=== PATIENT | female | born 1955 | race African-American/Black ===

== ENCOUNTER 2022-03-31 15:54 | Inpatient (IN) | payer OTHER ==
--- OUTSIDE RECORDS SUMMARY | 2022-03-31 15:56 | XMS REPORT | Continuity of Care Document ---
:1955 Author Organization [facility] t Address [address] [place] [address] Care Team Providers Name Role Phone MARCI_Fito Attending Clinician Unavailable Marci Attending Clinician [phone] KO Attending Clinician Unavailable Herminia Watson Attending Clinician [phone] MARCI_S Admitting Clinician Unavailable KO Admitting Clinician Unavailable Payers Payer Name Policy Type Policy Number Effective Date Expiration Date Fito SAUER (MEDICARE [id number] 2019 REPLACEMENT PPO) 00:00:00 MEDICARE A-[place]: [id number] 2019 [employer] 00:00:00 Problems This patient has no known problems. Allergies, Adverse Reactions, Alerts This patient has no known allergies or adverse reactions. Medications This patient has no known medications. Procedures This patient has no known procedures. Encounters Start End Encounter Admission Attending Care Care Encounter Source Date/Time Date/Time Type Type Clinicians Facility Department ID 2021-10-28 2021-10-28 Outpatient MARCI[facility]S [facility] [id number] [place] 12:01:00 12:01:00 [facility] 2021-10-28 2021-10-28 Outpatient [facility] [id number] [place] 12:01:00 12:01:00 [facility] 2021-10-28 2021-10-28 [facility] [id number] 00:00:00 00:00:00 Carlotta [id number] 2021-10-07 Outpatient [facility] [id number] [place] 04:19:00 04:19:00 [facility] 2021-10-07 2021-10-07 Outpatient Marci, [facility] [id number] 00:00:00 00:00:00 Carlotta [id number] 2021-09-30 2021-09-30 Outpatient [facility] [id number] [place] 10:01:00 10:01:00 208 [facility] 2021-08-05 2021-08-05 [facility] 389 [place] 11:51:00 11:51:00 _L 013 [facility] 2021-08-05 2021-08-05 Outpatient [facility] [id number] 00:00:00 00:00:00 , Meryl [id number] Herminia [id number] 2021-07-03 2021-07-03 Outpatient [facility] 389 [place] 12:44:00 12:44:00 _L 910 [facility] 2021-07-03 2021-07-03 [facility] [id number] 00:00:00 00:00:00 , Meryl [id number] Herminia [id number] 2021-06-22 2021-06-22 Outpatient [facility] 389 [place] 06:00:00 06:00:00 _L 830 [facility] 2021-06-22 2021-06-22 Outpatient [facility] [id number] 00:00:00 00:00:00 , Meryl [id number] Herminia [id number] 2021-04-22 2021-04-22 Outpatient [facility] 389 [place] 05:46:00 05:46:00 _L 630 [facility] 2021-04-22 2021-04-22 Outpatient [facility] [id number] 00:00:00 00:00:00 , Meryl [id number] Herminia [id number] 2021-04-15 2021-04-15 Outpatient [facility] 389 [place] 12:15:00 12:15:00 _L 623 [facility] 2021-04-15 2021-04-15 Outpatient Marci [facility] [id number] 00:00:00 00:00:00 Carlotta [id number] 2021-04-01 2021-04-01 Outpatient [facility] 389 [place] 11:11:00 11:11:00 _L 609 [facility] 2021-04-01 2021-04-01 Outpatient [facility] [id number] 00:00:00 00:00:00 , Meryl [id number] Herminia [id number] 2021-04-01 2021-04-01 Outpatient [facility] [id number] 00:00:00 00:00:00 , Meryl [id number] Herminia [id number] 2021-03-25 2021-03-25 Outpatient [facility] 389 [place] 11:00:00 11:00:00 _L 602 [facility] 2021-03-25 2021-03-25 Outpatient [facility] [id number] 00:00:00 00:00:00 , Meryl [id number] Herminia [id number] 2020-12-16 2020-12-16 Outpatient [facility] 389 [place] 11:04:00 11:04:00 _L 528 [facility] 2020-12-15 2020-12-15 Outpatient [facility] 389 [place] 10:19:00 10:19:00 _L 222 [facility] 2020-12-10 2020-12-10 Outpatient [facility] 389 [place] 04:21:00 04:21:00 _L 217 [facility] 2020-12-10 2020-12-10 Outpatient [facility] [id number] 00:00:00 00:00:00 , Meryl [id number] Herminia [id number] Results This patient has no known results.
[2022-03-31] MEDS ORDERED: MORPHINE 4 MG/ML SYR ONE (17:28)
[2022-03-31] MEDS ORDERED: PANTOPRAZOLE 40 MG INJ ONE (17:28)
[2022-03-31] MEDS ORDERED: ONDANSETRON 4 MG/2 ML VIAL ONE (17:28)
[2022-03-31 17:48] LABS: Urine Blood Trace-intact (Negative); Urine Glucose Negative (Negative); Urine Protein 2+ (Negative); Urine Specific Gravity 1.025 (1.005-1.030); Urine pH 5.5 (5.0-7.0)
[2022-03-31 18:17] LABS: Urine Bacteria >50 /HPF (<20); Urine Mucus HEAVY /HPF (NONE SEEN); Urine RBC <5 /HPF (NONE SEEN)
[2022-03-31 18:36] LABS: Absolute Lymphocytes (CBC) 2.6 K/uL (0.7-4.9); Hematocrit 39.6 % (36.0-45.0); Lymphocytes % 16.1 % (15.3-44.8); RBC Red Blood Cell Count 4.77 M/uL (3.86-4.86)
[2022-03-31 18:47] LABS: Bilirubin Total 0.3 mg/dL (0.2-1.0); Protein, Total 8.5 g/dL (6.4-8.2)
[2022-03-31 18:48] LABS: Potassium 3.9 mmol/L (3.5-5.1)
--- NOTE | 2022-03-31 19:50 | RAD REPORT ---
EXAM DESCRIPTION: CT - Abdomen Pelvis W Contrast - 03/31/2022 7:37 pm CLINICAL HISTORY: Abdominal pain COMPARISON: none. TECHNIQUE: Computed axial tomography of the abdomen pelvis was obtained. 100 cc Isovue-300 was admin istered intravenously. Oral contrast was not requested which limits evaluation of bowel and appendix All CT scans are performed using dose optimization technique as appropriate and may include automated exposure control or mA/KV adjustment according to patient size. FINDINGS: The liver, spleen, pancreas, adrenal and kidneys appear unremarkable. There is no evidence of diverticulitis. Small umbilical hernia. The gallbladder is distended. The wall is thickened. Stranding is present within the adjacent fat. Areas of subsegmental atelectasis within the right lower lobe IMPRESSION: Acute cholecystitis with gallbladder distention
--- NOTE | 2022-03-31 19:51 | RAD REPORT ---
EXAM DESCRIPTION: Rita Single View03/31/2022 6:08 pm CLINICAL HISTORY: Chest pain COMPARISON: none FINDINGS: A few areas of subsegmental atelectasis within the right lung base. The remainder of the lungs appear clear of acute infiltrate. The heart is normal size
[2022-03-31] MEDS ORDERED: CEFTRIAXONE 1000 MG/VIAL ONE (20:01)
[2022-03-31] MEDS ORDERED: NA CHLORIDE 0.9% 1,000 ML ONE (20:01)
[2022-03-31] MEDS ORDERED: NA CHLORIDE 0.9% 50 ML ONE (20:01)
[2022-03-31] MEDS ORDERED: NA CHLORIDE 0.9% 100 ML ONE (20:58)
[2022-03-31] MEDS ORDERED: PIPERACIL/TAZO 3.375 GM VIAL IV ONE (20:58)
--- NOTE | 2022-03-31 21:04 | EDPHYS ---
Physician Documentation [facility] Name: Neela Chan Age: 66 yrs Sex: Female : 1955 Arrival Date: 03/31/2022 Time: 15:55 Bed 7 Private MD: ED Physician Marcellus Alexis HPI: 03/31 17:10 This 66 yrs old Black Female presents to ER via Ambulatory with complaints of Abdominal cp Pain, Abnormal Lab Results, Flank Pain. 17:10 The patient presents with abdominal pain in the epigastric area, in the right upper cp quadrant. 17:10 Onset: The symptoms/episode began/occurred 3 day(s) ago. The symptoms radiate to right back. Associated signs and symptoms: Pertinent positives: anorexia, nausea, vomiting, Pertinent negatives: blood in stools, chest pain, constipation, diarrhea, fever, vomiting blood. 17:10 The symptoms are described as constant. cp 17:10 Severity of pain: in the emergency department the pain is unchanged despite home cp interventions. The patient has been recently seen by a physician: the patient's primary care provider, with similar presenting complaints, and was sent to the [facility] Emergency Department for further evaluation. Historical: - Allergies: 16:01 No Known Allergies; ll1 - PMHx: 16:01 Diabetes mellitus; Hypertensive disorder; Hypercholesterolemia; ll1 - PSHx: 16:01 hysterectomy; ll1 - Immunization history:: Client reports receiving the 2nd dose of the Covid vaccine. - Social history:: Smoking status: Patient denies any tobacco usage or history of. ROS: 17:15 Constitutional: Positive for poor PO intake, Negative for body aches, chills, fever. cp 17:15 Eyes: Negative for injury, pain, redness, and discharge. cp 17:15 ENT: Negative for drainage from ear(s), ear pain, sore throat, difficulty swallowing, difficulty handling secretions. 17:15 Cardiovascular: Negative for chest pain, edema, palpitations. 17:15 Respiratory: Negative for cough, shortness of breath, wheezing. 17:15 Abdomen/GI: Positive for abdominal pain, nausea, anorexia, Negative for diarrhea, constipation, black/tarry stool, rectal bleeding. 17:15 Skin: Negative for cellulitis, rash. 17:15 Neuro: Negative for altered mental status, dizziness, headache, weakness. Exam: 17:20 Head/Face: Normocephalic, atraumatic. cp 17:20 Constitutional: The patient appears in no acute distress, alert, awake, non-diaphoretic, non-toxic, well developed, well nourished, uncomfortable. 17:20 Eyes: Periorbital structures: appear normal, Conjunctiva: normal, no exudate, no injection, Sclera: no appreciated abnormality, Lids and lashes: appear normal, bilaterally. 17:20 ENT: External ear(s): are unremarkable, Nose: is normal, Mouth: Lips: moist, Oral mucosa: pink and intact, moist, Posterior pharynx: Airway: no evidence of obstruction, patent. 17:20 Chest/axilla: Inspection: normal. 17:20 Cardiovascular: Rate: normal, Rhythm: regular, Edema: is not appreciated, JVD: is not appreciated. 17:20 Respiratory: the patient does not display signs of respiratory distress, Respirations: normal, no use of accessory muscles, no retractions, labored breathing, is not present, Breath sounds: are clear throughout, no decreased breath sounds, no stridor, no wheezing. 17:20 Abdomen/GI: Inspection: abdomen appears normal, Bowel sounds: active, all quadrants, Palpation: soft, in all quadrants, moderate abdominal tenderness, in the epigastric area and right upper quadrant, rebound tenderness, is not appreciated, voluntary guarding, is elicited in the epigastric area and right upper quadrant. 17:20 Back: pain, that is moderate, of the mid back area, ROM is normal. 17:20 Skin: no rash present. 17:20 Neuro: Orientation: to person, place \\T\\ time. Mentation: is normal, Motor: moves all fours, strength is normal, Sensation: is normal, Gait: is steady. Vital Signs: 15:59 BP 124 / 67; Pulse 73; Resp 16; Temp 97.5; Pulse Ox 100% ; Weight 82.1 kg; Height 5 ft. ll1 11 in. (180.34 cm); Pain 10/10; 20:02 BP 120 / 46; Pulse 67; Resp 18 S; Pulse Ox 98% on R/A; as6 21:01 BP 120 / 58; Pulse 69; Resp 18; Pulse Ox 97% on R/A; Pain 3/10; tw5 15:59 Body Mass Index 25.24 (82.10 kg, 180.34 cm) ll1 MDM: 16:54 Patient medically screened. 18:00 Differential diagnosis: bowel obstruction, cholecystitis, Cholelithiasis, cp diverticulitis, non-specific abd pain, pancreatitis, Peptic Ulcer Disease, Perf. Duodenal Ulcer, Perf. Gastric Ulcer. 21:00 Data reviewed: vital signs, nurses notes, lab test result(s), radiologic studies, CT cp scan. 21:00 Counseling: I had a detailed discussion with the patient and/or guardian regarding: the cp historical points, exam findings, and any diagnostic results supporting the discharge/admit diagnosis, lab results, radiology results, the need for further work-up and treatment in the hospital. Physician consultation: Santi Nolan MD was called at 20:50, was contacted at 20:50, regarding consult, patient's condition, would like admission per Dr. Tyler Alexis MD. 03/31 17:11 Order name: CBC with Diff; Complete Time: 19:06 03/31 19:06 Interpretation: Normal except: WBC 16.0; MCH 26.8; PLT 430; NEUT A 11.6; MNA 1.6. 03/31 17:11 Order name: CMP; Complete Time: 19:06 03/31 19:07 Interpretation: Normal except: NA 133; CL 95; GLUC 107; BUN 23; GFR 57; TP 8.5; ALB cp 3.0; GLOB 5.5; A/G 0.5. 03/31 17:11 Order name: Lipase; Complete Time: 19:06 03/31 17:11 Order name: Urine Microscopic Only; Complete Time: 19:06 03/31 19:07 Interpretation: Normal except: UBACT >50; SQEPI 10-20. 03/31 17:48 Order name: Urine Dipstick-Ancillary; Complete Time: 19:06 [facility] 03/31 19:07 Interpretation: Normal except: UKET 1+; UBLD Trace-intact; UPROT 2+; U NIT Positive; cp UESTR Trace. 03/31 18:20 Order name: Urine Culture [facility] 03/31 17:11 Order name: CT Abd/Pelvis - IV Contrast Only 03/31 17:11 Order name: XRAY Chest (1 view); Complete Time: 20:48 03/31 20:48 Interpretation: Report review. 03/31 20:57 Order name: COVID-19 SARS RT PCR (Document "Date of Onset" if Symptomatic) tw5 03/31 23:52 Order name: Glucose, Ancillary Testing EDMS 04/01 04:34 Order name: Comprehensive Metabolic Panel EDMS 04/01 04:34 Order name: Magnesium EDMS 04/01 04:35 Order name: CBC with Automated Diff EDMS 04/01 05:25 Order name: Glucose, Ancillary Testing EDMS 03/31 17:11 Order name: IV Saline Lock; Complete Time: 18:32 cp 03/31 17:11 Order name: Labs collected and sent; Complete Time: 18:32 cp 03/31 17:11 Order name: Urine Dipstick-Ancillary (obtain specimen); Complete Time: 17:54 03/31 17:16 Order name: Abdomen ; Complete Time: 20:48 EDMS Administered Medications: 18:08 Drug: Zofran (Ondansetron) 4 mg Route: IVP; Site: left forearm; ph 22:10 Follow up: Response: No adverse reaction as6 18:10 Drug: morphine 4 mg Route: IVP; Infused Over: 4 mins; Site: left forearm; ph 18:15 Drug: ProTONIX (pantoprazole) 40 mg Route: IVP; Site: left forearm; ph 20:01 Drug: Rocephin (cefTRIAXone) 1 grams Route: IV; Rate: calculated rate; Site: left as6 forearm; 20:01 Drug: NS 0.9% 500 ml Route: IV; Rate: bolus; Site: left forearm; as6 20:23 Drug: NS 0.9% 500 ml Route: IV; Rate: 125 ml/hr; Site: left forearm; as6 21:01 Drug: Zosyn (piperacillin-tazobactam) 3.375 grams Route: IVPB; Infused Over: 60 mins; tw5 Site: left wrist; Disposition: 04/01 21:42 Co-signature as Attending Physician, Marcellus Alexis MD. rn Disposition Summary: 03/31/22 21:04 Hospitalization Ordered Hospitalization Status: Inpatient Admission cp Condition: Stable cp Problem: an ongoing problem cp Symptoms: have improved cp Bed/Room Type: Standard cp Location: [facility] ER HOLD(06/08/22 21:35) cg Room Assignment: [facility](03/31/22 21:35) Provider: Tyler Alexis(04/01/22 04:10) la1 Diagnosis - Cholecystitis, unspecified cp Forms: - Medication Reconciliation Form cp - SBAR form cp Signatures: Dispatcher [employer] EDMS Marcellus Alexis MD MD rn Attema, Boris, [employer]-C [employer]-Cla1 Gertrudis Schwarz RN RN Lake Bee PA PA cp Aliyah Calzada RN RN cg Lucie Jaramillo RN RN ll1 Danya Hernández tw5 Yadiel Somers RN RN as6 Corrections: (The following items were deleted from the chart) 03/31 21:35 21:04 Tele[facility] 21:35 21:04 cp cg 04/01 04:10 08 21:04 Boris Levin cp la1 04/02 01:02 04/01 17:20 Constitutional: The patient appears in no acute distress, alert, awake, cp non-diaphoretic, non-toxic, well developed, well nourished, uncomfortable, cp 04/02 01:04/01 17:20 Head/Face: Normocephalic, atraumatic. cp cp 04/02 01:04/01 17:20 Eyes: Periorbital structures: appear normal, Conjunctiva: normal, no cp exudate, no injection, Sclera: no appreciated abnormality, Lids and lashes: appear normal, bilaterally, cp 04/02 01:04/01 17:20 ENT: External ear(s): are unremarkable, Nose: is normal, Mouth: Lips: cp moist, Oral mucosa: pink and intact, moist, Posterior pharynx: Airway: no evidence of obstruction, patent, cp 04/02 01:04/01 17:20 Chest/axilla: Inspection: normal, cp cp 04/02 01:04/01 17:20 Cardiovascular: Rate: normal, Rhythm: regular, Edema: is not appreciated, cp JVD: is not appreciated, cp 04/02 01:04/01 17:20 Respiratory: the patient does not display signs of respiratory distress, cp Respirations: normal, no use of accessory muscles, no retractions, labored breathing, is not present, Breath sounds: are clear throughout, no decreased breath sounds, no stridor, no wheezing, cp 04/02 01:04/01 17:20 Abdomen/GI: Inspection: abdomen appears normal, Bowel sounds: active, all cp quadrants, Palpation: soft, in all quadrants, moderate abdominal tenderness, in the epigastric area and right upper quadrant, rebound tenderness, is not appreciated, voluntary guarding, is elicited in the epigastric area and right upper quadrant, cp 04/02 01:04/01 17:20 Back: pain, that is moderate, of the mid back area, ROM is normal, cp cp 04/02 01:04/01 17:20 Skin: no rash present. cp cp 04/02 01:04/01 17:20 Neuro: Orientation: to person, place \\T\\ time. Mentation: is normal, Motor: cp moves all fours, strength is normal, Sensation: is normal, Gait: is steady, cp
--- NOTE | 2022-03-31 21:04 | ER ---
Nurse's Notes [facility] Name: Neela Chan Age: 66 yrs Sex: Female : 1955 Arrival Date: 03/31/2022 Time: 15:55 Bed 7 Private MD: Diagnosis: Cholecystitis, unspecified Presentation: 03/31 15:59 Chief complaint: Patient states: RUQ/R flank pain with N/V since Tuesday. Sent in for ll1 further eval by PCP. Coronavirus screen: Vaccine status: Patient reports receiving the 2nd dose of the covid vaccine. Client denies travel out of the [place] in the last 14 days. At this time, the client does not indicate any symptoms associated with coronavirus-19. Ebola Screen: Patient denies travel to an Ebola-affected area in the 21 days before illness onset. Initial Sepsis Screen: Does the patient meet any 2 criteria? No. Patient's initial sepsis screen is negative. Does the patient have a suspected source of infection? Yes: Acute abdominal pain. Risk Assessment: Do you want to hurt yourself or someone else? Patient reports no desire to harm self or others. Onset of symptoms was March 27, 2022. 15:59 Method Of Arrival: Ambulatory ll1 15:59 Acuity: JARED 3 ll1 Triage Assessment: 17:15 General: Appears distressed, uncomfortable, Behavior is cooperative, appropriate for bp age, anxious. Pain: Complains of pain in right flank and right lower quadrant. EENT: No deficits noted. Neuro: No deficits noted. Cardiovascular: No deficits noted. Respiratory: No deficits noted. GI: Abdomen is non-distended. : No signs and/or symptoms were reported regarding the genitourinary system. Derm: No deficits noted. Musculoskeletal: No deficits noted. Historical: - Allergies: 16:01 No Known Allergies; ll1 - PMHx: 16:01 Diabetes mellitus; Hypertensive disorder; Hypercholesterolemia; ll1 - PSHx: 16:01 hysterectomy; ll1 - Immunization history:: Client reports receiving the 2nd dose of the Covid vaccine. - Social history:: Smoking status: Patient denies any tobacco usage or history of. Screenin:15 Abuse screen: Denies threats or abuse. Denies injuries from another. Nutritional bp screening: No deficits noted. Tuberculosis screening: No symptoms or risk factors identified. Fall Risk None identified. Assessment: 17:15 General: SEE TRIAGE NOTE. bp 20:03 General: Appears in no apparent distress. General: "I feel okay right now". as6 Respiratory: Respiratory effort is even, unlabored, Respiratory pattern is regular, symmetrical. 21:01 Pain: Complains of pain in epigastric area, right upper quadrant and left upper tw5 quadrant Pain currently is 3 out of 10 on a pain scale. Neuro: Level of Consciousness is awake, alert, obeys commands, Oriented to person, place, time, situation. Cardiovascular: Capillary refill < 3 seconds is brisk in bilateral fingers. Vital Signs: 15:59 BP 124 / 67; Pulse 73; Resp 16; Temp 97.5; Pulse Ox 100% ; Weight 82.1 kg; Height 5 ft. ll1 11 in. (180.34 cm); Pain 10/10; 20:02 BP 120 / 46; Pulse 67; Resp 18 S; Pulse Ox 98% on R/A; as6 21:01 BP 120 / 58; Pulse 69; Resp 18; Pulse Ox 97% on R/A; Pain 3/10; tw5 15:59 Body Mass Index 25.24 (82.10 kg, 180.34 cm) ll1 ED Course: 15:55 Patient arrived in ED. rg4 16:00 Lake Bee PA is PHCP. cp 16:00 Austyn Bernard DO is Attending Physician. cp 16:01 Triage completed. ll1 16:01 Arm band placed on. ll1 17:09 Gertrudis Schwarz RN is Primary Nurse. ph 17:15 Patient has correct armband on for positive identification. Bed in low position. Call bp light in reach. Side rails up X2. Adult w/ patient. 18:10 XRAY Chest (1 view) In Process Unspecified. EDMS 18:10 Inserted saline lock: 20 gauge in left forearm, using aseptic technique. Blood bp collected. 19:18 Primary Nurse role handed off by Gertrudis Schwarz RN mw2 19:25 Marcellus Alexis MD is Attending Physician. cp 19:39 Abdomen In Process Unspecified. EDMS 19:52 Yadiel Somers, JANINA is Primary Nurse. as6 21:03 Boris Leivn is Hospitalizing Provider. cp 21:04 COVID-19 SARS RT PCR (Document "Date of Onset" if Symptomatic) Sent. tw5 04/01 04:10 Hospitalizing Provider role handed off by Boris Levin 04:10 Tyler Alexis MD is Hospitalizing Provider. la1 Administered Medications: 03/31 18:08 Drug: Zofran (Ondansetron) 4 mg Route: IVP; Site: left forearm; ph 22:10 Follow up: Response: No adverse reaction as6 18:10 Drug: morphine 4 mg Route: IVP; Infused Over: 4 mins; Site: left forearm; ph 18:15 Drug: ProTONIX (pantoprazole) 40 mg Route: IVP; Site: left forearm; ph 20:01 Drug: Rocephin (cefTRIAXone) 1 grams Route: IV; Rate: calculated rate; Site: left as6 forearm; 20:01 Drug: NS 0.9% 500 ml Route: IV; Rate: bolus; Site: left forearm; as6 20:23 Drug: NS 0.9% 500 ml Route: IV; Rate: 125 ml/hr; Site: left forearm; as6 21:01 Drug: Zosyn (piperacillin-tazobactam) 3.375 grams Route: IVPB; Infused Over: 60 mins; tw5 Site: left wrist; Medication: 17:15 VIS not applicable for this client. bp Outcome: 21:04 Decision to Hospitalize by Provider. cp 04/01 10:49 Patient left the ED. eb Signatures: Dispatcher [employer] EDMS Boris Levin, DATA MANAGEMENT MANAGER-C DATA MANAGEMENT MANAGER-Cla1 Gertrudis Schwarz, RN RN ph Lake Bee PA PA cp Angi Calzada rg4 Albert Medellin RN RN Jerman Arriola mw2 Cynthia Rome Lucie Jaramillo RN RN ll1 Danya Hernández tw5 Yadiel Somers RN RN as6
--- NOTE | 2022-03-31 22:14 | P.HP ---
Certification for Inpatient Patient admitted to: Observation With expected LOS: <2 Midnights Patient will require the following post-hospital care: None Practitioner: I am a practitioner with admitting privileges, knowledge of patient current condition, hospital course, and medical plan of care. Services: Services provided to patient in accordance with Admission requirements found in Title 42 Section 412.3 of the Code of Federal Regulations Patient History Date of Service: 03/31/22 Reason for admission: Acute cholecystitis History of Present Illness: 66-year-old female history diabetes mellitus type 2insulin-dependent, hypertension, hyperlipidemia presents emergency department with 3 days of anorexia, right upper quadrant abdominal pain was referred here by her primary care doctor for evaluation her labs were significant for leukocytosis mild hyponatremia chest x-ray with a few areas of subsegmental atelectasis in the right lung base CT abdomen pelvis demonstrates acute cholecystitis with gallbladder distention. ED provider discussed case with general surgery plan is for admission, n.p.o. for midnight and IV antibiotics with surgical consult in morning. - Past Medical/Surgical History -: Diabetes type 2insulin-dependent -: Hypertension -: Hyperlipidemia -: Hysterectomy Psychosocial/ Personal History: Patient lives at home with her family - Family History Mother -: Diabetes Father -: Heart disease - Social History Alcohol use: No CD- Drugs: No Caffeine use: Yes Place of Residence: Home Review of Systems 10-point ROS is otherwise unremarkable General: Malaise Gastrointestinal: Nausea, Abdominal Pain, Other (Anorexia) Physical Examination - Physical Exam General: Alert, In no apparent distress, Oriented x3 HEENT: Atraumatic, PERRLA, Mucous membr. moist/pink, EOMI, Sclerae nonicteric Neck: Supple, 2+ carotid pulse no bruit, No LAD, Without JVD or thyroid abnormality Respiratory: Clear to auscultation bilaterally, Normal air movement Cardiovascular: Regular rate/rhythm, Normal S1 S2 Gastrointestinal: Normal bowel sounds, Tenderness (Moderate epigastric/right upper quadrant abdominal tenderness) Musculoskeletal: No tenderness Integumentary: No rashes Neurological: Normal gait, Normal speech, Normal strength at 5/5 x4 extr, Normal tone, Normal affect Lymphatics: No axilla or inguinal lymphadenopathy - Studies Laboratory Data (last 24 hrs) 03/31/22 18:10: Sodium 133 L, Potassium 3.9, BUN 23 H, Creatinine 1.07, Glucose 107 H, Total Bilirubin 0.3, AST 22, ALT 29, Alkaline Phosphatase 66, Lipase 111 03/31/22 18:10: WBC 16.0 H, Hgb 12.8, Hct 39.6, Plt Count 430 H Assessment and Plan - Plan Assessment: Acute cholecystitis Diabetes mellitus type 2insulin-dependent Hypertension Hyperlipidemia Plan: Acute cholecystitis: NPO, IVF, IVABX, PRN pain meds and nausea meds. Surgical consult in the morning. Diabetes mellitus type 2insulin-dependent: Q6H Accucheck mild SS insulin Hypertension: Hold PO meds. Hyperlipidemia: Hold PO meds. DVT PPX: SCD Code status: Full Discharge Plan: Home Plan to discharge in: 24 Hours - Advance Directives Does patient have a Living Will: No Does patient have a Durable POA for Healthcare: No - Code Status/Comfort Care Code Status Assessed: Yes (Full code) Critical Care: No Time Spent Managing Pts Care (In Minutes): 55
[2022-03-31] MEDS ORDERED: MORPHINE 2 MG/ML SYR IV PRN (22:21)
[2022-03-31] MEDS ORDERED: ONDANSETRON 4 MG/2 ML VIAL IV PRN (22:21)
[2022-03-31] MEDS: NA CHLORIDE 0.9% 1,000 ML IV SCH (22:24)
[2022-03-31 23:36] VITALS: BMI 25.1
[2022-04-01 04:22] LABS: Absolute Lymphocytes (CBC) 2.6 K/uL (0.7-4.9); Hematocrit 34.6 % (36.0-45.0); Lymphocytes % 19.4 % (15.3-44.8); MPV 7.6 fL (7.6-11.3); RBC Red Blood Cell Count 4.22 M/uL (3.86-4.86)
[2022-04-01 04:33] LABS: Albumin 2.5 g/dL (3.4-5.0); Bilirubin Total 0.3 mg/dL (0.2-1.0); Magnesium 2.1 mg/dL (1.8-2.4); Potassium 3.5 mmol/L (3.5-5.1); Protein, Total 7.2 g/dL (6.4-8.2)
[2022-04-01] MEDS: PIPER TAZO 3.375 GM in NA CHLORIDE 0.9% 100 ML IV SCH ×3 (05:00→20:36)
[2022-04-01] MEDS: INSULIN -REGULAR HUMAN 50 UNIT/0.5 ML ML SQ SCH ×4 (05:16→20:45)
[2022-04-01] MEDS ORDERED: NA CHLORIDE 0.9% 1,000 ML ONE (05:21)
[2022-04-01] MEDS ORDERED: PIPERACIL/TAZO 3.375 GM VIAL IV ONE ×2 (05:22→05:32)
[2022-04-01] MEDS ORDERED: NA CHLORIDE 0.9% 100 ML ONE ×2 (05:24→05:31)
[2022-04-01] MEDS ORDERED: PNEUMOCOCCAL VACCINE 0.5 ML IMVAC ONE (08:00)
[2022-04-01] MEDS: NA CHLORIDE 0.9% 1,000 ML IV SCH (09:00)
[2022-04-01] MEDS ORDERED: MORPHINE 2 MG/ML SYR ONE (09:24)
[2022-04-01] MEDS ORDERED: ROCURONIUM 50 MG/5 ML VIAL IV ONE (10:42)
[2022-04-01] MEDS ORDERED: propofoL 200 MG/20 ML VIAL IV ONE (10:42)
[2022-04-01] MEDS ORDERED: MIDAZOLAM HCL 2 MG/2 ML INJ ONE (10:42)
[2022-04-01] MEDS ORDERED: FENTANYL CITR 100 MCG/2 ML ONE (10:42)
[2022-04-01] MEDS ORDERED: KETOROLAC 30 MG/ML INJ ONE (10:42)
[2022-04-01] MEDS ORDERED: LIDOCAINE 2% MPF 5 ML VIAL ONE (10:42)
[2022-04-01] MEDS ORDERED: dexAMETHasone 4 MG/ML VIAL ONE (10:43)
[2022-04-01] MEDS ORDERED: ONDANSETRON 4 MG/2 ML VIAL ONE (10:43)
--- NOTE | 2022-04-01 11:22 | P.CNS ---
Date of Consult: 04/01/22 PC: This 66-year-old female presented to the emergency room with severe right upper quadrant abdominal pain for diagnosis and treatment. HPC: Patient has been doing well over the last few weeks. On Tuesday he ate something and had severe right upper quadrant abdominal pain. She cannot shake it off and finally came to the hospital yesterday for evaluation and treatment. This reveals she has acute cholecystitis. PSHx: , colonoscopy PMHx: Negative Social Hx: No known allergies Sys R: Denies any cough, wheeze, shortness of breath. No chest pain or palpitations. Does not have any urinary tract symptoms. O/E: Awake alert vital signs are stable HEENT: Nonicteric Chest: Air entry equal bilaterally Abd: Mild right upper quadrant tenderness [place]: Intact Data: CT scan demonstrates cholecystitis Impression: Acute on chronic cholecystitis, biliary colic Plan: I will taken the operating room for laparoscopic possible open cholecystectomy with a cholangiogram. The risks of this procedure have been discussed. The possibility of bleeding, infection, injury to bile ducts blood vessels and intestines has been described. The possible need for an open and/or further surgeries and procedures was discussed. He understands and wants us to proceed.
[2022-04-01] MEDS ORDERED: GLYCOPYRROLATE 0.2 MG/ML SYR ONE (13:43)
[2022-04-01] MEDS ORDERED: NEOSTIGMINE 1 MG/ML -10 ML VIAL ONE (13:44)
--- NOTE | 2022-04-01 13:46 | P.OP ---
Preoperative diagnosis: Cholecystitis with cholelithiasis Postoperative diagnosis: Acute gangrenous cholecystitis with cholelithiasis Primary procedure: Laparoscopic cholecystectomy Secondary procedure: Cholangiogram Anesthesia: General Estimated blood loss: Less than 30 cc Operative Technique: The patient was brought to the operating room and placed supine on the table. After the induction of adequate general endotracheal anesthesia, the area of the abdomen was prepped with a DuraPrep solution, and she was draped in usual aseptic manner. Attention was turned towards the umbilicus. A subumbilical incision was made. This was brought down through the skin and subcutaneous tissue. Having cleared the fascia, a Veress needle was now taking and applying upward traction using a towel clip we were able to enter into the peritoneal cavity. Having obtained a positive hanging drop test the area was slowly insufflated. Again pneumoperitoneum having been established, we were now able to place a 5 mm t rocar. Having placed this under direct vision we placed another 1 in the upper midline and 2 other fives on the right lateral side of the abdominal wall. With a 5 in the upper port we were able to look back towards the umbilicus and easily inserted a 12 mm trocar as our working camera site. With the patient placed in reverse Trendelenburg and rolled the left we could visualize the right upper quadrant. We could see that the omentum was adherent up over the anterior surface of the liver. Gently dissecting this backwards we found that she she had an acute distended gallbladder which was extremely tense. We could see areas of patchy necrosis of the gallbladder throughout the body and fundus. An aspirate needle was used to withdraw the contents of the gallbladder. We encountered a thick clear bile consistent with a hydrops. A grasper was now placed on the fundus. Another down by Pablo's pouch. There were marked amount of adhesions in this area both acute and chronic. After a long tedious dissection we were able to gently expose the Pablo's pouch. Tracing this medially we found the vasculature. This was controlled using yocasta. The artery having been divided down and allowed us full access to the cystic duct. It however was short. There is some chronic inflammatory tissue. A clip was placed between the gallbladder and the cystic duct. An opening was made into the cystic duct through which we obtained a normal intraoperative cholangiogram there was no evidence of any extrahepatic biliary tree obstruction and we had good flow into the duodenum. The catheter was withdrawn. Clips were then placed on the distal portion of the cystic duct. The cystic duct was fully transected. It was now sent dissected off the liver bed, placed into an Endo Catch, and brought out through the umbilical trocar site. Attention was turned back up towards her right upper quadrant. The liver edge of the right lobe was elevated so we can see the gallbladder fossa. Irrigating and allowing for aspiration of the irrigating fluid was done. It was still slightly wet when we were finished and a Anton-Locke drain was placed into this area and brought out through our lateral trocar site. At this point the attention was turned back towards the umbilicus. The umbilical defect was closed using the Endo Close and 3 absorbable sutures. At this point as the trochars were removed, the pneumoperitoneum collapsed, and the sutures were tied. Yocasta were then applied to the skin. The drain was secured to the skin. At the end of the procedure she was in a stable condition was sent to the recovery room. Needle sponge instrument count were correct. Drain(s): ASHLY drain Condition: Good
[2022-04-01] MEDS: FENTANYL CITR 100 MCG/2 ML ONE ×2 (14:26→14:31)
[2022-04-01] MEDS: HYDROMORPHONE HCL 1 MG/ML INJ ONE ×2 (14:36→14:44)
[2022-04-01] MEDS ORDERED: HYDROMORPHONE HCL 1 MG/ML INJ ONE (14:59)
[2022-04-01 18:04] LABS: Urine Appearance Clear (Clear); Urine Blood Trace-intact (Negative); Urine Color Yellow (Yellow); Urine Glucose Negative (Negative); Urine Microscopic Reflex ORDER UMIC; Urine Protein Trace (Negative); Urine Specific Gravity 1.025 (1.005-1.030); Urine Urobilinogen 0.2 mg/dL (0.2-1.0); Urine pH 5.5 (5.0-7.0)
[2022-04-01 18:05] LABS: Urine Bilirubin ND (Negative)
[2022-04-01 18:22] LABS: Urine Bacteria <20 /HPF (<20); Urine RBC <5 /HPF (NONE SEEN)
[2022-04-01 18:23] LABS: Urine Yeast FEW (NONE SEEN)
--- NOTE | 2022-04-01 19:58 | P.PN ---
Date of Service: 04/01/22 Subjective: no significant change ROS: 10 point ROS as noted above, otherwise negative Physical exam GEN: Alert, oriented, uncomfortable appearing HEENT: Normal conjunctiva, sclera anicteric CV: Regular rate and rhythm, no edema Pulm: Nonlabored respirations on room air ABD: TTP in RUQ Neuro: Normal speech, normal affect Problem List Acute cholecystitis Diabetes mellitus type 2insulin-dependent Hypertension Hyperlipidemia NPO, IVF IV antibiotics general surgery consulted OR today pain meds as needed Dispo: home 1-2 days Time Spent Managing Pts Care (In Minutes): 35
[2022-04-01] MEDS: MORPHINE 4 MG/ML SYR IV PRN (20:21)
[2022-04-01] MEDS: ONDANSETRON 4 MG/2 ML VIAL IV PRN (20:22)
[2022-04-02] MEDS: MORPHINE 4 MG/ML SYR IV PRN ×4 (00:29→12:26)
[2022-04-02] MEDS: NA CHLORIDE 0.9% 1,000 ML IV SCH ×4 (01:50→21:54)
[2022-04-02] MEDS: PIPER TAZO 3.375 GM in NA CHLORIDE 0.9% 100 ML IV SCH ×3 (04:11→21:47)
[2022-04-02 05:23] LABS: Absolute Lymphocytes (CBC) 1.9 K/uL (0.7-4.9); Hematocrit 33.3 % (36.0-45.0); Lymphocytes % 18.1 % (15.3-44.8); MPV 7.7 fL (7.6-11.3); RBC Red Blood Cell Count 4.01 M/uL (3.86-4.86)
[2022-04-02 05:45] LABS: Albumin 2.4 g/dL (3.4-5.0); Bilirubin Total 0.3 mg/dL (0.2-1.0); Magnesium 1.9 mg/dL (1.8-2.4); Potassium 4.2 mmol/L (3.5-5.1); Protein, Total 6.9 g/dL (6.4-8.2)
--- NOTE | 2022-04-02 07:09 | P.PN ---
Date of Service: 04/02/22 Subjective: abd pain, nausea no appetite feels very weak ROS: 10 point ROS as noted above, otherwise negative Physical exam GEN: Alert, oriented, uncomfortable appearing HEENT: Normal conjunctiva, sclera anicteric CV: Regular rate and rhythm, no edema Pulm: Nonlabored respirations on room air ABD: TTP in RUQ, serosanguineous drainage Neuro: Normal speech, normal affect Problem List Acute gangrenous cholecystitis. s/p lap fabiano DM 2insulin-dependent Hypertension Hyperlipidemia diet as tolerated s/p lap fabiano - gangrenous fabiano ASHLY drain placed general surgery following feels weak, no appetite pain meds as needed Dispo: home 1-2 days, per general surgery Time Spent Managing Pts Care (In Minutes): 35
[2022-04-02] MEDS: INSULIN -REGULAR HUMAN 50 UNIT/0.5 ML ML SQ SCH ×4 (07:30→21:48)
[2022-04-02] MEDS: ONDANSETRON 4 MG/2 ML VIAL IV PRN ×2 (08:32→14:23)
--- NOTE | 2022-04-02 09:31 | RAD REPORT ---
EXAM DESCRIPTION: RADCholangiogram Oper-Xray Or04/02/2022 9:23 am CLINICAL HISTORY: Abdominal pain FINDINGS: The examination was performed by Dr. Nolan. The cystic duct was cannulated and contrast administered. Three intraoperative fluoroscopic spot images obtained. Fluoroscopy time 0.1 minute. Contrast flowed into the duodenum. Common bile duct is mildly dilated.
--- NOTE | 2022-04-02 14:31 | P.PN ---
Date of Service: 04/02/22 S: Patient feels better today, still working on eating eating and getting her appetite back. Pain appears to be well controlled. O: Vital signs are stable, appropriate amount and ASHLY drain. A: Patient appears to be well status post laparoscopic cholecystectomy. She is still slow to ambulate, but drain functioning well. PE: Patient encouraged to get up and ambulate today, her pain appears to be controlled on oral medication. Anticipate discharge in a.m. That we will give her an adequate amount of antibiotics provided she remains afebrile.
[2022-04-02] MEDS: HYDROCODONE/APAP 7.5/325 MG TAB PO PRN (18:43)
[2022-04-03] MEDS: HYDROCODONE/APAP 7.5/325 MG TAB PO PRN (01:40)
[2022-04-03 04:38] LABS: Hematocrit 32.2 % (36.0-45.0); MPV 7.6 fL (7.6-11.3); RBC Red Blood Cell Count 3.89 M/uL (3.86-4.86)
[2022-04-03] MEDS: PIPER TAZO 3.375 GM in NA CHLORIDE 0.9% 100 ML IV SCH ×3 (04:38→21:26)
[2022-04-03 05:07] LABS: Albumin 2.2 g/dL (3.4-5.0); Bilirubin Total 0.2 mg/dL (0.2-1.0); Potassium 3.6 mmol/L (3.5-5.1); Protein, Total 6.4 g/dL (6.4-8.2)
[2022-04-03] MEDS: MORPHINE 4 MG/ML SYR IV PRN ×3 (06:53→21:27)
[2022-04-03] MEDS: INSULIN -REGULAR HUMAN 50 UNIT/0.5 ML ML SQ SCH ×4 (07:30→21:26)
[2022-04-03] MEDS: NA CHLORIDE 0.9% 1,000 ML IV SCH (08:38)
[2022-04-03] MEDS ORDERED: POTASSIUM CL SA 10 MEQ TAB PO ONE (09:00)
[2022-04-03] MEDS: ONDANSETRON 4 MG/2 ML VIAL IV PRN ×2 (12:48→21:27)
--- NOTE | 2022-04-03 16:21 | P.PN ---
Date of Service: 04/03/22 S no specific complaints, still tired and sore. Pain is controlled on oral medication. O: Vital signs are stable, still has some drainage from the ASHLY drain. Abdomen is soft. A: Surgically stable PE: I will discharge the patient in the morning. At that time will DC her ASHLY drain. She has been encouraged to ambulate in the owen, continue with her incentive spirometer, and diet as tolerated.
--- NOTE | 2022-04-03 18:13 | P.PN ---
Date of Service: 04/03/22 Subjective: abd pain, nausea minimal appetite slight improvement ROS: 10 point ROS as noted above, otherwise negative Physical exam GEN: Alert, oriented, NAD HEENT: Normal conjunctiva, sclera anicteric CV: Regular rate and rhythm, no edema Pulm: Non-labored respirations on room air ABD: TTP in RUQ, serosanguineous drainage Neuro: Normal speech, normal affect Problem List Acute gangrenous cholecystitis. s/p lap fabiano DM 2insulin-dependent Hypertension Hyperlipidemia diet as tolerated s/p lap fabiano - gangrenous fabiano ASHLY drain with serosanguineous output general surgery following feels weak, appetite improving pain meds as needed Dispo: home 1-2 days, likely tomorrow Time Spent Managing Pts Care (In Minutes): 35
[2022-04-04] MEDS: ONDANSETRON 4 MG/2 ML VIAL IV PRN (04:10)
[2022-04-04] MEDS: MORPHINE 4 MG/ML SYR IV PRN ×2 (04:11→21:32)
[2022-04-04] MEDS: NA CHLORIDE 0.9% 1,000 ML IV SCH (04:19)
[2022-04-04 04:53] LABS: Potassium 3.8 mmol/L (3.5-5.1)
[2022-04-04] MEDS: PIPER TAZO 3.375 GM in NA CHLORIDE 0.9% 100 ML IV SCH ×3 (05:40→21:30)
[2022-04-04] MEDS: INSULIN -REGULAR HUMAN 50 UNIT/0.5 ML ML SQ SCH ×4 (07:30→21:30)
[2022-04-04] MEDS ORDERED: POTASSIUM CL SA 10 MEQ TAB PO ONE (08:06)
[2022-04-04] MEDS: HYDROCODONE/APAP 7.5/325 MG TAB PO PRN (13:33)
[2022-04-04] MEDS: AMLODIPINE 10 MG TAB PO SCH (13:34)
[2022-04-04] MEDS: lisinopriL 20 MG TAB PO SCH (13:35)
--- NOTE | 2022-04-04 17:42 | P.PN ---
Date of Service: 04/04/22 Subjective: abd pain, nausea improving ASHLY drain output slowing down overnight feels tired, anxious about going home ROS: 10 point ROS as noted above, otherwise negative Physical exam GEN: Alert, oriented, NAD HEENT: Normal conjunctiva, sclera anicteric CV: Regular rate and rhythm, no edema Pulm: Non-labored respirations on room air ABD: TTP in RUQ, serosanguineous drainage on dressing and in ASHLY drain Neuro: Normal speech, normal affect Problem List Acute gangrenous cholecystitis. s/p lap fabiano DM 2insulin-dependent Hypertension Hyperlipidemia diet as tolerated s/p lap fabiano - gangrenous fabiano ASHLY drain with serosanguineous output - slowing down general surgery following feels weak, appetite improving pain meds as needed ambulate voiding, +flatus Dispo: home likely tomorrow Time Spent Managing Pts Care (In Minutes): 35
[2022-04-05] MEDS: PIPER TAZO 3.375 GM in NA CHLORIDE 0.9% 100 ML IV SCH ×2 (03:55→13:00)
[2022-04-05] MEDS: MORPHINE 4 MG/ML SYR IV PRN ×2 (04:15→11:00)
[2022-04-05 06:30] LABS: Potassium 3.8 mmol/L (3.5-5.1)
[2022-04-05] MEDS: INSULIN -REGULAR HUMAN 50 UNIT/0.5 ML ML SQ SCH ×2 (07:30→11:30)
[2022-04-05 08:06] LABS: ALT/SGPT 23 U/L (12-78); AST/SGOT 21 U/L (15-37); Albumin 2.5 g/dL (3.4-5.0); Alkaline Phosphatase 53 U/L (45-117); Bilirubin Total 0.2 mg/dL (0.2-1.0); Protein, Total 6.8 g/dL (6.4-8.2)
[2022-04-05 08:11] LABS: Bilirubin Direct < 0.1 mg/dL (0-0.2)
[2022-04-05] MEDS: lisinopriL 20 MG TAB PO SCH (08:44)
[2022-04-05] MEDS: AMLODIPINE 10 MG TAB PO SCH (08:44)
[2022-04-05] MEDS ORDERED: POTASSIUM CL SA 10 MEQ TAB PO ONE (09:00)
[2022-04-05 09:19] VITALS: O2SAT 97
[2022-04-05 12:39] VITALS: BP 157/82; TEMP 97.2
--- NOTE | 2022-04-05 13:43 | P.PN ---
Date of Service: 04/05/22 S: Patient doing well today, tolerating a diet. Pain is controlled on oral medication. O: ASHLY drain was pulled yesterday, incisions are clean. A: Surgically stable P: DC IV, DC home. Have her see me on in my office. Any questions or problems, go to the emergency room, or contact me. Ambulated home, continue incentive spirometry, she may shower, change Band-Aids as needed.
[2022-04-05] MEDS: HYDROCODONE/APAP 7.5/325 MG TAB PO PRN (14:32)
--- NOTE | 2022-04-12 00:10 | P.DS ---
Admission Date: 04/02/22 Discharge Date: 04/05/22 Disposition: ROUTINE DISCHARGE Discharge Condition: GOOD Reason for Admission: Acute cholecystitis Brief History of Present Illness: 66yo F, PMH: DM2 - insulin dependent, HTN, HLD Presented to ED with 3 days of anorexia, right upper quadrant abdominal pain was referred here by her primary care doctor for evaluation her labs were significant for leukocytosis mild hyponatremia chest x-ray with a few areas of subsegmental atelectasis in the right lung base CT abdomen pelvis demonstrates acute cholecystitis with gallbladder distention. Hospital Course: Problem List Acute gangrenous cholecystitis. s/p lap fabiano DM 2insulin-dependent Hypertension Hyperlipidemia Patient was found to have a gangrenous cholecystitis. She underwent laparoscopic cholecystectomy without complication. A ASHLY drain was placed due to the amount of irrigation used and to ensure drainage. Patient continued to do well postoperatively. She was tolerating her diet, ambulating, urinating, passing flatus. ASHLY drain was removed on 04/04. Patient was deemed stable and appropriate for discharge home Follow-up with Dr. Nolan in 1 week Vital Signs/Physical Exam: Temp Pulse Resp BP Pulse Ox 97.2 F 55 18 157/82 H 97 04/05/22 12:00 04/05/22 12:00 04/05/22 14:32 04/05/22 12:00 04/05/22 14:32 General: Alert, In no apparent distress, Oriented x3 HEENT: Mucous membr. moist/pink, Sclerae nonicteric Respiratory: Clear to auscultation bilaterally, Normal air movement Cardiovascular: No edema, Regular rate/rhythm Gastrointestinal: Soft and benign, Other (mild tenderness to palpation in RUQ. serosanguineous drainage on dressing) Musculoskeletal: No tenderness Integumentary: No rashes, No significant lesion Neurological: Normal speech, Normal affect Laboratory Data at Discharge: WBC 8.4 K/uL (4.3-10.9) D 04/03/22 04:06 Hgb 10.6 g/dL (12.0-15.0) L 04/03/22 04:06 Hct 32.2 % (36.0-45.0) L 04/03/22 04:06 Plt Count 349 K/uL (152-406) 04/03/22 04:06 Sodium 135 mmol/L (136-145) L 04/05/22 06:04 Potassium 3.8 mmol/L (3.5-5.1) 04/05/22 06:04 BUN 6 mg/dL (7-18) L 04/05/22 06:04 Creatinine 0.58 mg/dL (0.55-1.3) 04/05/22 06:04 Glucose 169 mg/dL (74-106) H 04/05/22 06:04 Magnesium 1.9 mg/dL (1.8-2.4) 04/02/22 04:49 Total Bilirubin 0.2 mg/dL (0.2-1.0) 04/05/22 06:08 AST 21 U/L (15-37) 04/05/22 06:08 ALT 23 U/L (12-78) 04/05/22 06:08 Alkaline Phosphatase 53 U/L (45-117) 04/05/22 06:08 Lipase 111 U/L (73-393) 03/31/22 18:10 Home Medications: Amlodipine [Norvasc*] 10 mg DAILY 03/31/22 Hum Insulin NPH/Reg Insulin Hm [Humulin 70-30 Vial] 50 units BID 03/31/22 Lovastatin 20 mg DAILY 03/31/22 Metformin HCl 1,000 mg DAILY 03/31/22 lisinopriL [Lisinopril] 20 mg DAILY 03/31/22 Followup: Santi Nolan MD [ACTIVE - CAN ADMIT] - 1 Week (CAll to schedule an appointment) RICARDO SILVA [Primary Care Provider] - 1-2 Weeks (Call to schedule an appointment) Time spent managing pt's care (in minutes): 40
== END 2022-04-05 16:00 | disposition home or self-care (01) | DRG 418 ==
LOC: ER 15:54 → ERHOLD 22:04 → 4TH 04-01 13:30 → OBSVTOIN 04-02 16:20
PROVIDERS: ADMIT Hospitalist; ATTEND Hospitalist
PROC: BF00YZZ Plain Radiography of Bile Ducts using Other Contrast (ICD-10-PCS; 2022-04-01)
PROC: 0FT44ZZ Resection of Gallbladder, Percutaneous Endoscopic Approach (ICD-10-PCS; principal; 2022-04-01 11:00)
DX: K80.00 Calculus of gallbladder with acute cholecystitis without obstruction (principal); K82.1 Hydrops of gallbladder; K82.A1 Gangrene of gallbladder in cholecystitis; E11.9 Type 2 diabetes mellitus without complications; I10 Essential (primary) hypertension; E78.5 Hyperlipidemia, unspecified; Z20.822 Contact with and (suspected) exposure to COVID-19
CPT/HCPCS: 36415; 71045; 74177; 74300; 80048; 80053; 80076; 81003; 81015; 82947; 83690; 83735; 85025; 85027; 87086; 87088; 88304; 94010; 99284; C9113; G0378; J1100; J1170; J1815; J2250; J2270; J2405; J2543; J2704; J2710; J3010; J7030; Q9967; U0003

== ENCOUNTER 2023-09-27 18:09 | Inpatient (IN) | payer OTHER ==
--- OUTSIDE RECORDS SUMMARY | 2023-09-27 21:01 | XMS REPORT | Continuity of Care Document ---
:1955 Author Organization [facility] t Address [address] [place] [address] Care Team Providers Name Role Phone Julissa_Shaka Attending Clinician Unavailable YADIEL LAWTON Attending Clinician Unavailable RITCHIE Attending Clinician Unavailable Carlotta Ruiz Attending Clinician [phone] KO Attending Clinician Unavailable Meryl Watson Attending Clinician [phone] Jaida Admitting Clinician Unavailable RITCHIE Admitting Clinician Unavailable KO Admitting Clinician Unavailable Payers Payer Name Policy Type Policy Number Effective Date Expiration Date Fito SAUER (MEDICARE [id number] 2019 REPLACEMENT PPO) 00:00:00 [place]: [id number] 2019 myTips 00:00:00 Problems Condition Condition Condition Status Onset Resolution Last Treating Co mments Source Name Details Category Date Date Treatment Clinician Date Right Right Problem Active 2022-10 [facility] lower Lower 2-05 [facility] quadrant Quadrant 00:00: ty pain Pain [facility] Glaucoma Glaucoma Problem Active 2022-10 Sween y of right of Right 0-26 [facility] i eye Eye 00:00: ty 00 [facility] Upper Upper Problem Active [facility] respirator Respirator 2-22 Co m[facility] y y 00:00: ty infection Infection 00 [facility] Chronic Chronic Problem Active [facility] back pain Back Pain 1-10 Comm uni 00:00: ty 00 [facility] Generalize Generalize Problem Active [facility] d acute d Acute 1-10 [facility] body pains Body Pains 00:00: ty 00 [facility] Otalgia of Otalgia of Problem Active 2021-10 [facility] left ear Left Ear 1-16 Commun i 00:00: ty 00 [facility] Streptococ Streptococ Problem Active 2021-10 [facility] eduard sore eduard Sore 0-03 Commun i throat Throat 00:00: ty 00 [facility] Acute Acute Problem Active 2021-10 [facility] sinusitis Sinusitis 0-03 Comm uni 00:00: ty 00 [facility] Pain in Pain in Problem Active 2021-10 [facility] throat Throat 0-03 Communi 00:00: ty 00 [facility] Cough Cough Problem Active 2021-10 [facility] 0-03 Communi 00:00: ty 00 [facility] Hypothyroi Hypothyroi Problem Active 2020-10 [facility] dism dism 0-13 Communi 00:00: ty 00 [facility] Nasal Nasal Problem Active 2020-10 [facility] congestion Congestion 0-13 Co m[facility]i 00:00: ty 00 [facility] Iron Iron Problem Active [facility] deficiency Deficiency 6-30 [facility] anemia Anemia 00:00: ty 00 [facility] Ultrasound Ultrasound Problem Active [facility] scan Scan 6-30 [facility] abnormal Abnormal 00:00: ty 00 [facility] Left side Left Side Problem Active [facility] sciatica Sciatica 6-02 Commun i 00:00: ty 00 [facility] Type 2 Type 2 Problem Active [facility] diabetes Diabetes 5-09 Commun i mellitus Mellitus 00:00: ty 00 [facility] Hyperlipid Hyperlipid Problem Active [facility] emia emia 5-09 Communi 00:00: ty 00 [facility] Essential Essential Problem Active [facility] hypertensi Hypertensi 5-09 Co mmuni on on 00:00: ty 00 [facility] Allergies, Adverse Reactions, Alerts This patient has no known allergies or adverse reactions. Social History Smoking Status Start Date Stop Date Source Former Smoker [facility] Medications Ordered Filled Start Stop Current Ordering Indication Dosage Frequency Signature Comments Components Source Medication Medication Date Date Medication? Clinician (SIG) Name Name Solu-Medrol Solu-Medrol 2022-10 No Solu-Medro Pedro (PF) 125 (PF) 125 1-29 l (PF) 125 [facility] mg/2 mL mg/2 mL 11:27: mg/2 mL ty solution solution 00 solution [facility] mill[facility]ent for for for l injectionTa injectionTa injectionT Clinics ke 125 mg ke 125 mg karen 125 mg by by by injection injection injection route. route. route. ceftriaxone ceftriaxone 2022-0 No ceftriaxon [facility] 1 gram 1 gram 7-26 e 1 gram Communi solution solution 09:45: solution t y for for 00 for Hospita injectionTa injectionTa injectionT l ke 1 g by ke 1 g by karen 1 g by Clinics injection injection injection route. route. route. lidocaine lidocaine 2022-0 No lidocaine [facility] (PF) 10 (PF) 10 7-26 (PF) 10 Commun i mg/mL (1 %) mg/mL (1 %) 09:45: mg/mL (1 ty injection injection 00 %) Hospi ta solutionTak solutionTak injection l e 2.1 mL by e 2.1 mL by solutionTa Clinics injection injection ke 2.1 mL route. route. by injection route. ceftriaxone ceftriaxone 2022-0 No ceftriaxon [facility] 1 gram 1 gram 7-26 e 1 gram Communi solution solution 09:45: solution t y for for 00 for Hospita injectionTa injectionTa injectionT l ke 1 g by ke 1 g by karen 1 g by Clinics injection injection injection route. route. route. lidocaine lidocaine 0 No lidocaine [facility] (PF) 10 (PF) 10 7-26 (PF) 10 Commun i mg/mL (1 %) mg/mL (1 %) 09:45: mg/mL (1 ty injection injection 00 %) Hospi ta solutionTak solutionTak injection l e 2.1 mL by e 2.1 mL by solutionTa Clinics injection injection ke 2.1 mL route. route. by injection route. Kenalog 40 Kenalog 40 2022-0 No Kenalog 40 [facility] mg/mL mg/mL 4-10 mg/mL [facility]i suspension suspension 10:20: suspension ty for for 00 for Hospita injectionTa injectionTa injectionT l ke 80 mg by ke 80 mg by karen 80 mg Clinics injection injection by route. route. injection route. lidocaine lidocaine 0 No lidocaine [facility] HCl 10 HCl 10 1-25 HCl 10 Communi mg/mL (1 %) mg/mL (1 %) 12:59: mg/mL (1 ty injection injection 00 %) Hospi ta solutionTak solutionTak injection l e 2 mL by e 2 mL by solutionTa Clinics injection injection ke 2 mL by route. route. injection route. lidocaine lidocaine No lidocaine [facility] HCl 10 HCl 10 1-25 HCl 10 Communi mg/mL (1 %) mg/mL (1 %) 12:59: mg/mL (1 ty injection injection 00 %) Hospi ta solutionTak solutionTak injection l e 2 mL by e 2 mL by solutionTa Clinics injection injection ke 2 mL by route. route. injection route. ceftriaxone ceftriaxone No ceftriaxon [facility] 1 gram 1 gram 1-25 e 1 gram Communi solution solution 12:00: solution t y for for 00 for Hospita injectionTa injectionTa injectionT l ke 1 g by ke 1 g by karen 1 g by Clinics injection injection injection route for 1 route for 1 route for day. day. 1 day. ceftriaxone ceftriaxone No ceftriaxon [facility] 1 gram 1 gram 1-25 e 1 gram Communi solution solution 12:00: solution t y for for 00 for Hospita injectionTa injectionTa injectionT l ke 1 g by ke 1 g by karen 1 g by Clinics injection injection injection route for 1 route for 1 route for day. day. 1 day. Kenalog 40 Kenalog 40 No Kenalog 40 [facility] mg/mL mg/mL 1-10 mg/mL Communi suspension suspension 16:40: suspension ty for for 00 for Hospita injectionTa injectionTa injectionT l ke 60 mg by ke 60 mg by karen 60 mg Clinics injection injection by route as route as injection directed. directed. route as directed. Kenalog 40 Kenalog 40 2021-10 No Kenalog 40 [facility] mg/mL mg/mL 0-03 mg/mL Communi suspension suspension 15:32: suspension ty for for 00 for Hospita injectionTa injectionTa injectionT l ke 40 mg by ke 40 mg by karen 40 mg Clinics injection injection by route as route as injection directed directed route as for 1 day. for 1 day. directed for 1 day. Kenalog 40 Kenalog 40 2021-10 No Kenalog 40 [facility] mg/mL mg/mL 0-03 mg/mL Communi suspension suspension 15:32: suspension ty for for 00 for Hospita injectionTa injectionTa injectionT l ke 40 mg by ke 40 mg by karen 40 mg Clinics injection injection by route as route as injection directed directed route as for 1 day. for 1 day. directed for 1 day. Kenalog 40 Kenalog 40 2020-10 No 60mg Kenalog 40 [facility] mg/mL mg/mL 0-13 mg/mL Communi suspension suspension 00:00: suspension ty for for for Hospita injection injection injection l Take 60 mg Take 60 mg Take 60 mg Clinics by by by injection injection injection route as route as route as directed directed directed for 1 day. for 1 day. for 1 day. Kenalog 40 Kenalog 40 No Kenalog 40 [facility] mg/mL mg/mL 6-02 mg/mL Communi suspension suspension 10:05: suspension ty for for for Hospita injectionTa injectionTa injectionT l ke 60 mg by ke 60 mg by karen 60 mg Clinics injection injection by route as route as injection directed directed route as for 1 day. for 1 day. directed for 1 day. Solu-Medrol Solu-Medrol No Solu-Medro [facility] (PF) 125 (PF) 125 2-17 l (PF) 125 C om[facility]i mg/2 mL mg/2 mL 11:30: mg/2 mL ty solution solution 00 solution [facility]ent for for for l injectionTa injectionTa injectionT Clinics ke 125 mg ke 125 mg karen 125 mg by by by injection injection injection route as route as route as directed directed directed for 1 day. for 1 day. for 1 day. ceftriaxone ceftriaxone No ceftriaxon [facility] 1 gram 1 gram 2-17 e 1 gram Communi solution solution 11:30: solution t y for for 00 for Hospita injectionTa injectionTa injectionT l ke 1 g by ke 1 g by karen 1 g by Clinics injection injection injection route as route as route as directed directed directed for 1 day. for 1 day. for 1 day. lidocaine lidocaine No lidocaine [facility] (PF) 10 (PF) 10 2-17 (PF) 10 Commun i mg/mL (1 %) mg/mL (1 %) 11:30: mg/mL (1 ty injection injection 00 %) Hospi ta solutionTak solutionTak injection l e 2.1 mL by e 2.1 mL by solutionTa Clinics injection injection ke 2.1 mL route as route as by directed directed injection for 1 day. for 1 day. route as directed for 1 day. cephalexin cephalexin No 1capsul BID cephalexin [facility] 750 mg 750 mg 2-17 e(s) 750 mg Communi capsule capsule 00:00: capsule ty Take 1 Take 1 00 Take 1 Hospita capsule capsule capsule l twice a day twice a day twice a Clinics by oral by oral day by route as route as oral route directed directed as for 7 days. for 7 days. directed for 7 days. Keflex 500 Keflex 500 No 1capsul Q8H Keflex 500 [facility] mg capsule mg capsule 2-17 e(s) mg capsule Communi Take 1 Take 1 00:00: Take 1 ty capsule capsule 00 capsule Hospit a every 8 every 8 every 8 l hours by hours by hours by Cli nics oral route oral route oral route as directed as directed as for 10 for 10 directed days. days. for 10 days. promethazin promethazin No promethazi [facility] e-DM 6.25 e-DM 6.25 2-17 ne-DM 6.25 Communi mg-15 mg/5 mg-15 mg/5 00:00: mg-15 mg/5 ty mL oral mL oral 00 mL oral Hospit a syrup Take syrup Take syrup Take l 5mL once at 5mL once at 5mL once Clinics bedtime as bedtime as at bedtime needed for needed for as needed cough. DO cough. DO for cough. NOT take NOT take DO NOT during the during the take day. DO NOT day. DO NOT during the drive or drive or day. DO operate operate NOT drive heavy heavy or operate machinery machinery heavy while while machinery taking this taking this while medication. medication. taking Duration: Duration: this 10 days 10 days medication . Duration: 10 days amlodipine amlodipine No amlodipine [facility] 10 mg 10 mg 10 mg Communi tablet TAKE tablet TAKE tablet ty 1 TABLET BY 1 TABLET BY TAKE 1 Hospita MOUTH ONCE MOUTH ONCE TABLET BY l DAILY DAILY MOUTH ONCE C linics DIRECTED DIRECTED DAILY FOR 90 DAYS FOR 90 DAYS DIRECTED FOR 90 DAYS amoxicillin amoxicillin No 1 Q12H amoxicilli [facility] 875 mg 875 mg n 875 mg Communi tablet Take tablet Take tablet ty 1 tablet 1 tablet Take 1 Hospi ta every 12 every 12 tablet l hours by hours by every 12 Cli nics oral route oral route hours by as directed as directed oral route for 10 for 10 as days. days. directed for 10 days. bromphenira bromphenira No bromphenir [facility] mine-pseudo mine-pseudo amine-pseu Communi ephedrine-D ephedrine-D doephedrin ty M 2 mg-30 M 2 mg-30 e-DM 2 [facility]ent mg-10 mg/5 mg-10 mg/5 mg-30 l mL oral mL oral mg-10 mg/5 Cli nics syrup TAKE syrup TAKE mL oral 5 ML BY 5 ML BY syrup TAKE MOUTH TWICE MOUTH TWICE 5 ML BY DAILY DAILY MOUTH NEEDED FOR NEEDED FOR TWICE 10 DAYS 10 DAYS DAILY NEEDED FOR 10 DAYS Humulin R Humulin R No 25unit( Q1D Humulin R [facility] Regular Regular s) Regular Commun i U-100 U-100 U-100 ty Insulin 100 Insulin 100 Insulin Hospita unit/mL unit/mL 100 l injection injection unit/mL Cl inics solution solution injection Take 25 Take 25 solution units every units every Take 25 day by day by units injection injection every day route at route at by bedtime for bedtime for injection 30 days. 30 days. route at bedtime for 30 days. ibuprofen ibuprofen No 1 TID ibuprofen [facility] 800 mg 800 mg 800 mg Communi tablet Take tablet Take tablet ty 1 tablet 3 1 tablet 3 Take 1 H ospita times a day times a day tablet 3 l by oral by oral times a Clinic s route as route as day by needed for needed for oral route 30 days. 30 days. as needed for 30 days. insulin insulin No 50unit( BID insulin [facility] aspar aspar s) aspar Communi prt-insulin prt-insulin prt-insuli ty aspart 100 aspart 100 n aspart Hospita unit/mL unit/mL 100 l (70-30) (70-30) unit/mL Clinic s subcutaneou subcutaneou (70-30) s soln s soln subcutaneo Inject 50 Inject 50 us soln units twice units twice Inject 50 a day by a day by units subcutaneou subcutaneou twice a s route as s route as day by directed directed subcutaneo for 30 for 30 us route days. days. as directed for 30 days. Kenalog 40 Kenalog 40 No 60mg Kenalog 40 [facility] mg/mL mg/mL mg/mL Communi suspension suspension suspension ty for for for Hospita injection injection injection l Take 60 mg Take 60 mg Take 60 mg Clinics by by by injection injection injection route as route as route as directed directed directed for 1 day. for 1 day. for 1 day. lovastatin lovastatin No lovastatin [facility] 20 mg 20 mg 20 mg Communi tablet TAKE tablet TAKE tablet ty 1 TABLET BY 1 TABLET BY TAKE 1 Hospita MOUTH ONCE MOUTH ONCE TABLET BY l DAILY AT DAILY AT MOUTH ONCE C linics BEDTIME BEDTIME DAILY AT BEDTIME metformin metformin No metformin [facility] 1,000 mg 1,000 mg 1,000 mg Com osvaldo tablet TAKE tablet TAKE tablet ty 1 TABLET BY 1 TABLET BY TAKE 1 Hospita MOUTH TWICE MOUTH TWICE TABLET BY l DAILY DAILY MOUTH Clinics BEFORE BEFORE TWICE MEAL(S) MEAL(S) DAILY BEFORE MEAL(S) mometasone mometasone No mometasone [facility] 50 50 50 Communi mcg/actuati mcg/actuati mcg/actuat ty on nasal on nasal ion nasal Ho spita spray USE 2 spray USE 2 spray USE l SPRAY(S) IN SPRAY(S) IN 2 SPRAY(S) Clinics EACH EACH IN EACH NOSTRIL NOSTRIL NOSTRIL ONCE DAILY ONCE DAILY ONCE DAILY DIRECTED DIRECTED FOR 14 DAYS FOR 14 DAYS DIRECTED FOR 14 DAYS montelukast montelukast No montelukas [facility] 10 mg 10 mg t 10 mg Communi tablet TAKE tablet TAKE tablet ty 1 TABLET BY 1 TABLET BY TAKE 1 Hospita MOUTH ONCE MOUTH ONCE TABLET BY l DAILY DAILY MOUTH ONCE C linics DIRECTED. DIRECTED. DAILY DIRECTED. promethazin promethazin No promethazi [facility] e-DM 6.25 e-DM 6.25 ne-DM 6.25 Communi mg-15 mg/5 mg-15 mg/5 mg-15 mg/5 ty mL oral mL oral mL oral Hospit a syrup TAKE syrup TAKE syrup TAKE l 5 ML BY 5 ML BY 5 ML BY Clinic s MOUTH ONCE MOUTH ONCE MOUTH ONCE DAILY AT DAILY AT DAILY AT BEDTIME FOR BEDTIME FOR BEDTIME 10 DAYS 10 DAYS FOR 10 DAYS amlodipine amlodipine No amlodipine [facility] 10 mg 10 mg 10 mg Communi tablet TAKE tablet TAKE tablet ty 1 TABLET BY 1 TABLET BY TAKE 1 Hospita MOUTH ONCE MOUTH ONCE TABLET BY l DAILY DAILY MOUTH ONCE C linics DIRECTED DIRECTED DAILY FOR 90 DAYS FOR 90 DAYS DIRECTED FOR 90 DAYS amoxicillin amoxicillin No amoxicilli [facility] 875 mg 875 mg n 875 mg Communi tablet TAKE tablet TAKE tablet ty 1 TABLET BY 1 TABLET BY TAKE 1 Hospita MOUTH EVERY MOUTH EVERY TABLET BY l 12 HOURS 12 HOURS MOUTH Clinics DIRECTED DIRECTED EVERY 12 FOR 10 DAYS FOR 10 DAYS HOURS DIRECTED FOR 10 DAYS bromphenira bromphenira No bromphenir [facility] mine-pseudo mine-pseudo amine-pseu Communi ephedrine-D ephedrine-D doephedrin ty M 2 mg-30 M 2 mg-30 e-DM 2 [facility]ent mg-10 mg/5 mg-10 mg/5 mg-30 l mL oral mL oral mg-10 mg/5 Cli nics syrup TAKE syrup TAKE mL oral 5 ML BY 5 ML BY syrup TAKE MOUTH TWICE MOUTH TWICE 5 ML BY DAILY DAILY MOUTH NEEDED FOR NEEDED FOR TWICE 10 DAYS 10 DAYS DAILY NEEDED FOR 10 DAYS Humulin R Humulin R No 25unit( Q1D Humulin R [facility] Regular Regular s) Regular Commun i U-100 U-100 U-100 ty Insulin 100 Insulin 100 Insulin Hospita unit/mL unit/mL 100 l injection injection unit/mL Cl inics solution solution injection Take 25 Take 25 solution units every units every Take 25 day by day by units injection injection every day route at route at by bedtime for bedtime for injection 30 days. 30 days. route at bedtime for 30 days. ibuprofen ibuprofen No ibuprofen [facility] 800 mg 800 mg 800 mg Communi tablet TAKE tablet TAKE tablet ty 1 TABLET BY 1 TABLET BY TAKE 1 Hospita MOUTH THREE MOUTH THREE TABLET BY l TIMES DAILY TIMES DAILY MOUTH Clinics NEEDED NEEDED THREE TIMES DAILY NEEDED insulin insulin No 50unit( BID insulin [facility] aspar aspar s) aspar Communi prt-insulin prt-insulin prt-insuli ty aspart 100 aspart 100 n aspart Hospita unit/mL unit/mL 100 l (70-30) (70-30) unit/mL Clinic s subcutaneou subcutaneou (70-30) s soln s soln subcutaneo Inject 50 Inject 50 us soln units twice units twice Inject 50 a day by a day by units subcutaneou subcutaneou twice a s route as s route as day by directed directed subcutaneo for 30 for 30 us route days. days. as directed for 30 days. Kenalog 40 Kenalog 40 No 60mg Kenalog 40 [facility] mg/mL mg/mL mg/mL Communi suspension suspension suspension ty for for for Hospita injection injection injection l Take 60 mg Take 60 mg Take 60 mg Clinics by by by injection injection injection route as route as route as directed directed directed for 1 day. for 1 day. for 1 day. lovastatin lovastatin No lovastatin [facility] 20 mg 20 mg 20 mg Communi tablet TAKE tablet TAKE tablet ty 1 TABLET BY 1 TABLET BY TAKE 1 Hospita MOUTH ONCE MOUTH ONCE TABLET BY l DAILY AT DAILY AT MOUTH ONCE C linics BEDTIME BEDTIME DAILY AT BEDTIME metformin metformin No metformin [facility] 1,000 mg 1,000 mg 1,000 mg Com osvaldo tablet TAKE tablet TAKE tablet ty 1 TABLET BY 1 TABLET BY TAKE 1 Hospita MOUTH TWICE MOUTH TWICE TABLET BY l DAILY DAILY MOUTH Clinics BEFORE BEFORE TWICE MEAL(S) MEAL(S) DAILY BEFORE MEAL(S) mometasone mometasone No mometasone [facility] 50 50 50 Communi mcg/actuati mcg/actuati mcg/actuat ty on nasal on nasal ion nasal Ho spita spray USE 2 spray USE 2 spray USE l SPRAY(S) IN SPRAY(S) IN 2 SPRAY(S) Clinics EACH EACH IN EACH NOSTRIL NOSTRIL NOSTRIL ONCE DAILY ONCE DAILY ONCE DAILY DIRECTED DIRECTED FOR 14 DAYS FOR 14 DAYS DIRECTED FOR 14 DAYS montelukast montelukast No montelukas [facility] 10 mg 10 mg t 10 mg Communi tablet TAKE tablet TAKE tablet ty 1 TABLET BY 1 TABLET BY TAKE 1 Hospita MOUTH ONCE MOUTH ONCE TABLET BY l DAILY DAILY MOUTH ONCE C linics DIRECTED DIRECTED DAILY DIRECTED promethazin promethazin No promethazi [facility] e-DM 6.25 e-DM 6.25 ne-DM 6.25 Communi mg-15 mg/5 mg-15 mg/5 mg-15 mg/5 ty mL oral mL oral mL oral Hospit a syrup TAKE syrup TAKE syrup TAKE l 5 ML BY 5 ML BY 5 ML BY Clinic s MOUTH ONCE MOUTH ONCE MOUTH ONCE DAILY AT DAILY AT DAILY AT BEDTIME FOR BEDTIME FOR BEDTIME 10 DAYS 10 DAYS FOR 10 DAYS amlodipine amlodipine No amlodipine [facility] 10 mg 10 mg 10 mg [facility]i tablet TAKE tablet TAKE tablet ty 1 TABLET BY 1 TABLET BY TAKE 1 Hospita MOUTH ONCE MOUTH ONCE TABLET BY l DAILY DAILY MOUTH ONCE C linics DIRECTED DIRECTED DAILY FOR 90 DAYS FOR 90 DAYS DIRECTED FOR 90 DAYS amoxicillin amoxicillin No amoxicilli [facility] 875 mg 875 mg n 875 mg Communi tablet TAKE tablet TAKE tablet ty 1 TABLET BY 1 TABLET BY TAKE 1 Hospita MOUTH EVERY MOUTH EVERY TABLET BY l 12 HOURS 12 HOURS MOUTH Clinics DIRECTED DIRECTED EVERY 12 FOR 10 DAYS FOR 10 DAYS HOURS DIRECTED FOR 10 DAYS bromphenira bromphenira No bromphenir [facility] mine-pseudo mine-pseudo amine-pseu Communi ephedrine-D ephedrine-D doephedrin ty M 2 mg-30 M 2 mg-30 e-DM 2 [facility] mg-10 mg/5 mg-10 mg/5 mg-30 l mL oral mL oral mg-10 mg/5 Cli nics syrup TAKE syrup TAKE mL oral 5 ML BY 5 ML BY syrup TAKE MOUTH TWICE MOUTH TWICE 5 ML BY DAILY DAILY MOUTH NEEDED FOR NEEDED FOR TWICE 10 DAYS 10 DAYS DAILY NEEDED FOR 10 DAYS Humulin R Humulin R No 25unit( Q1D Humulin R [facility] Regular Regular s) Regular Commun i U-100 U-100 U-100 ty Insulin 100 Insulin 100 Insulin Hospita unit/mL unit/mL 100 l injection injection unit/mL Cl inics solution solution injection Take 25 Take 25 solution units every units every Take 25 day by day by units injection injection every day route at route at by bedtime for bedtime for injection 30 days. 30 days. route at bedtime for 30 days. ibuprofen ibuprofen No ibuprofen [facility] 800 mg 800 mg 800 mg Communi tablet TAKE tablet TAKE tablet ty 1 TABLET BY 1 TABLET BY TAKE 1 Hospita MOUTH THREE MOUTH THREE TABLET BY l TIMES DAILY TIMES DAILY MOUTH Clinics NEEDED NEEDED THREE TIMES DAILY NEEDED insulin insulin No 50unit( BID insulin [facility] aspar aspar s) aspar Communi prt-insulin prt-insulin prt-insuli ty aspart 100 aspart 100 n aspart Hospita unit/mL unit/mL 100 l (70-30) (70-30) unit/mL Clinic s subcutaneou subcutaneou (70-30) s soln s soln subcutaneo Inject 50 Inject 50 us soln units twice units twice Inject 50 a day by a day by units subcutaneou subcutaneou twice a s route as s route as day by directed directed subcutaneo for 30 for 30 us route days. days. as directed for 30 days. Kenalog 40 Kenalog 40 No 60mg Kenalog 40 [facility] mg/mL mg/mL mg/mL Communi suspension suspension suspension ty for for for Hospita injection injection injection l Take 60 mg Take 60 mg Take 60 mg Clinics by by by injection injection injection route as route as route as directed directed directed for 1 day. for 1 day. for 1 day. lovastatin lovastatin No lovastatin [facility] 20 mg 20 mg 20 mg [facility] tablet TAKE tablet TAKE tablet ty 1 TABLET BY 1 TABLET BY TAKE 1 Hospita MOUTH ONCE MOUTH ONCE TABLET BY l DAILY AT DAILY AT MOUTH ONCE C linics BEDTIME BEDTIME DAILY AT BEDTIME metformin metformin No metformin [facility] 1,000 mg 1,000 mg 1,000 mg Com osvaldo tablet TAKE tablet TAKE tablet ty 1 TABLET BY 1 TABLET BY TAKE 1 Hospita MOUTH TWICE MOUTH TWICE TABLET BY l DAILY DAILY MOUTH Clinics BEFORE BEFORE TWICE MEAL(S) MEAL(S) DAILY BEFORE MEAL(S) mometasone mometasone No mometasone [facility] 50 50 50 Communi mcg/actuati mcg/actuati mcg/actuat ty on nasal on nasal ion nasal [facility] spray USE 2 spray USE 2 spray USE l SPRAY(S) IN SPRAY(S) IN 2 SPRAY(S) Clinics EACH EACH IN EACH NOSTRIL NOSTRIL NOSTRIL ONCE DAILY ONCE DAILY ONCE DAILY DIRECTED DIRECTED FOR 14 DAYS FOR 14 DAYS DIRECTED FOR 14 DAYS montelukast montelukast No montelukas [facility] 10 mg 10 mg t 10 mg Communi tablet TAKE tablet TAKE tablet ty 1 TABLET BY 1 TABLET BY TAKE 1 Hospita MOUTH ONCE MOUTH ONCE TABLET BY l DAILY DAILY MOUTH ONCE C linics DIRECTED DIRECTED DAILY DIRECTED promethazin promethazin No promethazi [facility] e-DM 6.25 e-DM 6.25 ne-DM 6.25 Communi mg-15 mg/5 mg-15 mg/5 mg-15 mg/5 ty mL oral mL oral mL oral Hospit a syrup TAKE syrup TAKE syrup TAKE l 5 ML BY 5 ML BY 5 ML BY Clinic s MOUTH ONCE MOUTH ONCE MOUTH ONCE DAILY AT DAILY AT DAILY AT BEDTIME FOR BEDTIME FOR BEDTIME 10 DAYS 10 DAYS FOR 10 DAYS amlodipine amlodipine No amlodipine [facility] 10 mg 10 mg 10 mg Communi tablet TAKE tablet TAKE tablet ty 1 TABLET BY 1 TABLET BY TAKE 1 Hospita MOUTH ONCE MOUTH ONCE TABLET BY l DAILY DAILY MOUTH ONCE C linics DIRECTED DIRECTED DAILY FOR 90 DAYS FOR 90 DAYS DIRECTED FOR 90 DAYS bromphenira bromphenira No bromphenir [facility] mine-pseudo mine-pseudo amine-pseu Communi ephedrine-D ephedrine-D doephedrin ty M 2 mg-30 M 2 mg-30 e-DM 2 [facility] mg-10 mg/5 mg-10 mg/5 mg-30 l mL oral mL oral mg-10 mg/5 Cli nics syrup TAKE syrup TAKE mL oral 5 ML BY 5 ML BY syrup TAKE MOUTH TWICE MOUTH TWICE 5 ML BY DAILY DAILY MOUTH NEEDED FOR NEEDED FOR TWICE 10 DAYS 10 DAYS DAILY NEEDED FOR 10 DAYS cetirizine cetirizine No 1 Q1D cetirizine [facility] 10 mg 10 mg 10 mg Communi tablet Take tablet Take tablet ty 1 tablet 1 tablet Take 1 Hospi ta every day every day tablet l by oral by oral every day Clin ics route. route. by oral route. Chlorasepti Chlorasepti No 1spray( Q5H Chlorasept [facility] c Throat c Throat s) ic Throat [facility] [place] 1.4 % [place] 1.4 % [place] 1.4 ty aerosol aerosol % aerosol Hosp tati Take 1 Take 1 Take 1 l spray every spray every spray Clinics 4-6 hours 4-6 hours every 4-6 by mucous by mucous hours by route as route as mucous needed. needed. route as needed. famotidine famotidine No 1 Q1D famotidine [facility] 20 mg 20 mg 20 mg Communi tablet Take tablet Take tablet ty 1 tablet 1 tablet Take 1 Hospi ta every day every day tablet l by oral by oral every day Clin ics route for route for by oral 14 days. 14 days. route for 14 days. Humulin R Humulin R No 25unit( Q1D Humulin R [facility] Regular Regular s) Regular Commun i U-100 U-100 U-100 ty Insulin 100 Insulin 100 Insulin [facility] unit/mL unit/mL 100 l injection injection unit/mL [facility] solution solution injection Take 25 Take 25 solution units every units every Take 25 day by day by units injection injection every day route at route at by bedtime for bedtime for injection 30 days. 30 days. route at bedtime for 30 days. ibuprofen ibuprofen No ibuprofen [facility] 800 mg 800 mg 800 mg [facility] tablet TAKE tablet TAKE tablet ty 1 TABLET BY 1 TABLET BY TAKE 1 [facility] MOUTH THREE MOUTH THREE TABLET BY l TIMES DAILY TIMES DAILY MOUTH Clinics NEEDED NEEDED THREE TIMES DAILY NEEDED insulin insulin No 50unit( BID insulin Swe ar[facility] aspar aspar s) aspar [facility] prt-insulin prt-insulin prt-insuli ty aspart 100 aspart 100 n aspart [facility] unit/mL unit/mL 100 l (70-30) (70-30) unit/mL Clinic s subcutaneou subcutaneou (70-30) s soln s soln subcutaneo Inject 50 Inject 50 us soln units twice units twice Inject 50 a day by a day by units subcutaneou subcutaneou twice a s route as s route as day by directed directed subcutaneo for 30 for 30 us route days. days. as directed for 30 days. lovastatin lovastatin No lovastatin [facility] 20 mg 20 mg 20 mg [facility] tablet TAKE tablet TAKE tablet ty 1 TABLET BY 1 TABLET BY TAKE 1 [facility] MOUTH ONCE MOUTH ONCE TABLET BY l DAILY AT DAILY AT MOUTH ONCE C lin[facility] BEDTIME BEDTIME DAILY AT BEDTIME metformin metformin No metformin [facility] 1,000 mg 1,000 mg 1,000 mg Com osvaldo tablet TAKE tablet TAKE tablet ty 1 TABLET BY 1 TABLET BY TAKE 1 [facility] MOUTH TWICE MOUTH TWICE TABLET BY l DAILY DAILY MOUTH Clinics BEFORE BEFORE TWICE MEAL(S) MEAL(S) DAILY BEFORE MEAL(S) mometasone mometasone No mometasone [facility] 50 50 50 [facility] mcg/actuati mcg/actuati mcg/actuat ty on nasal on nasal ion nasal [facility] spray USE 2 spray USE 2 spray USE l SPRAY(S) IN SPRAY(S) IN 2 SPRAY(S) Clinics EACH EACH IN EACH NOSTRIL NOSTRIL NOSTRIL ONCE DAILY ONCE DAILY ONCE DAILY DIRECTED DIRECTED FOR 14 DAYS FOR 14 DAYS DIRECTED FOR 14 DAYS montelukast montelukast No montelukas [facility] 10 mg 10 mg t 10 mg [facility] tablet TAKE tablet TAKE tablet ty 1 TABLET BY 1 TABLET BY TAKE 1 [facility] MOUTH ONCE MOUTH ONCE TABLET BY l DAILY DAILY MOUTH ONCE C lin[facility] DIRECTED DIRECTED DAILY DIRECTED amlodipine amlodipine No amlodipine [facility] 10 mg 10 mg 10 mg [facility] tablet TAKE tablet TAKE tablet ty 1 TABLET BY 1 TABLET BY TAKE 1 [facility] MOUTH ONCE MOUTH ONCE TABLET BY l DAILY DAILY MOUTH ONCE C lin[facility] DIRECTED DIRECTED DAILY FOR 90 DAYS FOR 90 DAYS DIRECTED FOR 90 DAYS bromphenira bromphenira No bromphenir [facility] mine-pseudo mine-pseudo amine-pseu [facility] ephedrine-D ephedrine-D doephedrin ty M 2 mg-30 M 2 mg-30 e-DM 2 [facility] mg-10 mg/5 mg-10 mg/5 mg-30 l mL oral mL oral mg-10 mg/5 Cli nics syrup TAKE syrup TAKE mL oral 5 ML BY 5 ML BY syrup TAKE MOUTH TWICE MOUTH TWICE 5 ML BY DAILY DAILY MOUTH NEEDED FOR NEEDED FOR TWICE 10 DAYS 10 DAYS DAILY NEEDED FOR 10 DAYS cetirizine cetirizine No cetirizine [facility] 10 mg 10 mg 10 mg [facility] tablet TAKE tablet TAKE tablet ty 1 TABLET BY 1 TABLET BY TAKE 1 [facility] MOUTH ONCE MOUTH ONCE TABLET BY l DAILY DAILY MOUTH ONCE Clinics DAILY Chlorasepti Chlorasepti No 1spray( Q5H Chlorasept [facility] [place] 1.4 % [place] 1.4 % [place] 1.4 ty aerosol aerosol % aerosol [facility] Take 1 Take 1 Take 1 l spray every spray every spray Clinics 4-6 hours 4-6 hours every 4-6 by mucous by mucous hours by route as route as mucous needed. needed. route as needed. famotidine famotidine No famotidine [facility] 20 mg 20 mg 20 mg [facility] tablet TAKE tablet TAKE tablet ty 1 TABLET BY 1 TABLET BY TAKE 1 [facility] MOUTH ONCE MOUTH ONCE TABLET BY l DAILY FOR DAILY FOR MOUTH ONCE Clinics 14 DAYS 14 DAYS DAILY FOR 14 DAYS ferrous ferrous No 1 TID ferrous [facility] sulfate 325 sulfate 325 sulfate [facility] mg (65 mg mg (65 mg 325 mg (65 ty iron) iron) mg iron) [facility] tablet,nilsa tablet,nilsa tablet,del l yed release yed release ayed [facility] Take 1 Take 1 release tablet 3 tablet 3 Take 1 times a day times a day tablet 3 by oral by oral times a route as route as day by directed directed oral route for 30 for 30 as days. days. directed for 30 days. Humulin R Humulin R No 25unit( Q1D Humulin R [facility] Regular Regular s) Regular [facility] i U-100 U-100 U-100 ty Insulin 100 Insulin 100 Insulin [facility] unit/mL unit/mL 100 l injection injection unit/mL [facility] solution solution injection Take 25 Take 25 solution units every units every Take 25 day by day by units injection injection every day route at route at by bedtime for bedtime for injection 30 days. 30 days. route at bedtime for 30 days. ibuprofen ibuprofen No ibuprofen [facility] 800 mg 800 mg 800 mg [facility] tablet TAKE tablet TAKE tablet ty 1 TABLET BY 1 TABLET BY TAKE 1 [facility] MOUTH THREE MOUTH THREE TABLET BY l TIMES DAILY TIMES DAILY MOUTH Clinics NEEDED NEEDED THREE TIMES DAILY NEEDED insulin insulin No 50unit( BID insulin Swe ar[facility] aspar aspar s) aspar [facility] prt-insulin prt-insulin prt-insuli ty aspart 100 aspart 100 n aspart [facility] unit/mL unit/mL 100 l (70-30) (70-30) unit/mL Clinic s subcutaneou subcutaneou (70-30) s soln s soln subcutaneo Inject 50 Inject 50 us soln units twice units twice Inject 50 a day by a day by units subcutaneou subcutaneou twice a s route as s route as day by directed directed subcutaneo for 30 for 30 us route days. days. as directed for 30 days. levothyroxi levothyroxi No 1 Q1D levothyrox [facility] ne 25 mcg ne 25 mcg ine 25 mcg [facility] tablet Take tablet Take tablet ty 1 tablet 1 tablet Take 1 [facility] ta every day every day tablet l by oral by oral every day Clin ics route in route in by oral the morning the morning route in for 30 for 30 the days. days. morning for 30 days. lovastatin lovastatin No lovastatin [facility] 20 mg 20 mg 20 mg [facility] tablet TAKE tablet TAKE tablet ty 1 TABLET BY 1 TABLET BY TAKE 1 [facility] MOUTH ONCE MOUTH ONCE TABLET BY l DAILY AT DAILY AT MOUTH ONCE C [facility] BEDTIME BEDTIME DAILY AT BEDTIME metformin metformin No metformin [facility] 1,000 mg 1,000 mg 1,000 mg Com osvaldo tablet TAKE tablet TAKE tablet ty 1 TABLET BY 1 TABLET BY TAKE 1 [facility] MOUTH TWICE MOUTH TWICE TABLET BY l DAILY DAILY MOUTH Clinics BEFORE BEFORE TWICE MEAL(S) MEAL(S) DAILY BEFORE MEAL(S) mometasone mometasone No mometasone [facility] 50 50 50 [facility] mcg/actuati mcg/actuati mcg/actuat ty on nasal on nasal ion nasal [facility] spray USE 2 spray USE 2 spray USE l SPRAY(S) IN SPRAY(S) IN 2 SPRAY(S) Clinics EACH EACH IN EACH NOSTRIL NOSTRIL NOSTRIL ONCE DAILY ONCE DAILY ONCE DAILY DIRECTED DIRECTED FOR 14 DAYS FOR 14 DAYS DIRECTED FOR 14 DAYS montelukast montelukast No montelukas [facility] 10 mg 10 mg t 10 mg [facility] tablet TAKE tablet TAKE tablet ty 1 TABLET BY 1 TABLET BY TAKE 1 [facility] MOUTH ONCE MOUTH ONCE TABLET BY l DAILY DAILY MOUTH ONCE C lin[facility] DIRECTED DIRECTED DAILY DIRECTED amlodipine amlodipine No amlodipine [facility] 10 mg 10 mg 10 mg [facility] tablet TAKE tablet TAKE tablet ty 1 TABLET BY 1 TABLET BY TAKE 1 [facility] MOUTH ONCE MOUTH ONCE TABLET BY l DAILY DAILY MOUTH ONCE C lin[facility] DIRECTED DIRECTED DAILY FOR 90 DAYS FOR 90 DAYS DIRECTED FOR 90 DAYS bromphenira bromphenira No 5mL Q6H bromphenir [facility] mine-pseudo mine-pseudo amine-pseu [facility] ephedrine-D ephedrine-D doephedrin ty M 2 mg-30 M 2 mg-30 e-DM 2 [facility] mg-10 mg/5 mg-10 mg/5 mg-30 l mL oral mL oral mg-10 mg/5 Cli nics syrup Take syrup Take mL oral 5 mL every 5 mL every syrup Take 6 hours by 6 hours by 5 mL every oral route oral route 6 hours by as needed as needed oral route for 10 for 10 as needed days. days. for 10 days. cetirizine cetirizine No cetirizine [facility] 10 mg 10 mg 10 mg [facility] tablet TAKE tablet TAKE tablet ty 1 TABLET BY 1 TABLET BY TAKE 1 [facility] MOUTH ONCE MOUTH ONCE TABLET BY l DAILY DAILY MOUTH ONCE Clinics DAILY Chlorasepti Chlorasepti No 1spray( Q5H Chlorasept [facility] [place] 1.4 % [place] 1.4 % [place] 1.4 ty aerosol aerosol % aerosol [facility] Take 1 Take 1 Take 1 l spray every spray every spray Clinics 4-6 hours 4-6 hours every 4-6 by mucous by mucous hours by route as route as mucous needed. needed. route as needed. Euthyrox 25 Euthyrox 25 No Euthyrox [facility] mcg tablet mcg tablet 25 mcg [facility] TAKE 1 TAKE 1 tablet ty TABLET BY TABLET BY TAKE 1 [facility] MOUTH ONCE MOUTH ONCE TABLET BY l DAILY IN DAILY IN MOUTH ONCE C linics THE MORNING THE MORNING DAILY IN ON AN EMPTY ON AN EMPTY THE STOMACH STOMACH MORNING ON WITH A WITH A AN EMPTY GLASS OF GLASS OF STOMACH WATER ONE WATER ONE WITH A HOUR BEFORE HOUR BEFORE GLASS OF EATING EATING WATER ONE BREAKFAST BREAKFAST HOUR BEFORE EATING BREAKFAST FeroSul 325 FeroSul 325 No FeroSul [facility] mg (65 mg mg (65 mg 325 mg (65 [facility] iron) iron) mg iron) ty tablet TAKE tablet TAKE tablet [facility] 1 TABLET BY 1 TABLET BY TAKE 1 l MOUTH THREE MOUTH THREE TABLET BY Clinics TIMES DAILY TIMES DAILY MOUTH DIRECTED DIRECTED THREE TIMES DAILY DIRECTED Humulin R Humulin R No 25unit( Q1D Humulin R [facility] Regular Regular s) Regular [facility] i U-100 U-100 U-100 ty Insulin 100 Insulin 100 Insulin [facility] unit/mL unit/mL 100 l injection injection unit/mL [facility] solution solution injection Take 25 Take 25 solution units every units every Take 25 day by day by units injection injection every day route at route at by bedtime for bedtime for injection 30 days. 30 days. route at bedtime for 30 days. ibuprofen ibuprofen No ibuprofen [facility] 800 mg 800 mg 800 mg [facility] tablet TAKE tablet TAKE tablet ty 1 TABLET BY 1 TABLET BY TAKE 1 [facility] MOUTH THREE MOUTH THREE TABLET BY l TIMES DAILY TIMES DAILY MOUTH Clinics NEEDED NEEDED THREE TIMES DAILY NEEDED insulin insulin No 50unit( BID insulin Swe ar[facility] aspar aspar s) aspar [facility] prt-insulin prt-insulin prt-insuli ty aspart 100 aspart 100 n aspart [facility] unit/mL unit/mL 100 l (70-30) (70-30) unit/mL Clinic s subcutaneou subcutaneou (70-30) s soln s soln subcutaneo Inject 50 Inject 50 us soln units twice units twice Inject 50 a day by a day by units subcutaneou subcutaneou twice a s route as s route as day by directed directed subcutaneo for 30 for 30 us route days. days. as directed for 30 days. lisinopril lisinopril No lisinopril [facility] 20 20 20 [facility] mg-hydrochl mg-hydrochl mg-hydroch ty orothiazide orothiazide [facility]zi [facility] 25 mg 25 mg de 25 mg l tablet TAKE tablet TAKE tablet Clinics 1 TABLET BY 1 TABLET BY TAKE 1 MOUTH ONCE MOUTH ONCE TABLET BY DAILY IN DAILY IN MOUTH ONCE THE MORNING THE MORNING DAILY IN THE MORNING lovastatin lovastatin No lovastatin [facility] 20 mg 20 mg 20 mg [facility] tablet TAKE tablet TAKE tablet ty 1 TABLET BY 1 TABLET BY TAKE 1 [facility] MOUTH ONCE MOUTH ONCE TABLET BY l DAILY AT DAILY AT MOUTH ONCE C [facility] BEDTIME BEDTIME DAILY AT BEDTIME metformin metformin No metformin [facility] 1,000 mg 1,000 mg 1,000 mg Com osvaldo tablet TAKE tablet TAKE tablet ty 1 TABLET BY 1 TABLET BY TAKE 1 [facility] MOUTH TWICE MOUTH TWICE TABLET BY l DAILY DAILY MOUTH Clinics BEFORE BEFORE TWICE MEAL(S) MEAL(S) DAILY BEFORE MEAL(S) mometasone mometasone No mometasone [facility] 50 50 50 [facility] mcg/actuati mcg/actuati mcg/actuat ty on nasal on nasal ion nasal [facility] spray USE 2 spray USE 2 spray USE l SPRAY(S) IN SPRAY(S) IN 2 SPRAY(S) Clinics EACH EACH IN EACH NOSTRIL NOSTRIL NOSTRIL ONCE DAILY ONCE DAILY ONCE DAILY DIRECTED DIRECTED FOR 14 DAYS FOR 14 DAYS DIRECTED FOR 14 DAYS montelukast montelukast No montelukas [facility] 10 mg 10 mg t 10 mg [facility] tablet TAKE tablet TAKE tablet ty 1 TABLET BY 1 TABLET BY TAKE 1 [facility] MOUTH ONCE MOUTH ONCE TABLET BY l DAILY DAILY MOUTH ONCE C [facility] DIRECTED DIRECTED DAILY DIRECTED omeprazole omeprazole No omeprazole [facility] 20 mg 20 mg 20 mg [facility] capsule,del capsule,del capsule,de ty ayed ayed layed [facility] release release release l TAKE ONE TAKE ONE TAKE ONE Cli nics (1) (1) (1) CAPSULE(S) CAPSULE(S) CAPSULE(S) BY MOUTH BY MOUTH BY MOUTH EVERY EVERY EVERY MORNING. MORNING. MORNING. prednisone prednisone No 1 BID prednisone [facility] 20 mg 20 mg 20 mg [facility] tablet Take tablet Take tablet ty 1 tablet 1 tablet Take 1 [facility] ta twice a day twice a day tablet l by oral by oral twice a Clinic s route as route as day by directed directed oral route for 7 days. for 7 days. as directed for 7 days. Zithromax Zithromax No Zithromax [facility] Z-Jose Antonio 250 Z-Jose Antonio 250 Z-Jose Antonio 250 [facility] mg tablet mg tablet mg tablet ty TAKE 2 TAKE 2 TAKE 2 [facility] TABLETS TABLETS TABLETS l (500 MG) BY (500 MG) BY (500 MG) Clinics ORAL ROUTE ORAL ROUTE BY ORAL ONCE DAILY ONCE DAILY ROUTE ONCE FOR 1 DAY FOR 1 DAY DAILY FOR THEN 1 THEN 1 1 DAY THEN TABLET (250 TABLET (250 1 TABLET MG) BY ORAL MG) BY ORAL (250 MG) ROUTE ONCE ROUTE ONCE BY ORAL DAILY FOR 4 DAILY FOR 4 ROUTE ONCE DAYS DAYS DAILY FOR 4 DAYS amlodipine amlodipine No amlodipine [facility] 10 mg 10 mg 10 mg [facility] tablet TAKE tablet TAKE tablet ty 1 TABLET BY 1 TABLET BY TAKE 1 [facility] MOUTH ONCE MOUTH ONCE TABLET BY l DAILY DAILY MOUTH ONCE C lin[facility] DIRECTED DIRECTED DAILY FOR 90 DAYS FOR 90 DAYS DIRECTED FOR 90 DAYS cetirizine cetirizine No cetirizine [facility] 10 mg 10 mg 10 mg [facility] tablet TAKE tablet TAKE tablet ty 1 TABLET BY 1 TABLET BY TAKE 1 [facility] MOUTH ONCE MOUTH ONCE TABLET BY l DAILY DAILY MOUTH ONCE Clinics DAILY Chlorasepti Chlorasepti No 1spray( Q5H Chlorasept [facility] [place] 1.4 % [place] 1.4 % [place] 1.4 ty aerosol aerosol % aerosol [facility] Take 1 Take 1 Take 1 l spray every spray every spray Clinics 4-6 hours 4-6 hours every 4-6 by mucous by mucous hours by route as route as mucous needed. needed. route as needed. Euthyrox 25 Euthyrox 25 No Euthyrox [facility] mcg tablet mcg tablet 25 mcg [facility] TAKE 1 TAKE 1 tablet ty TABLET BY TABLET BY TAKE 1 [facility] MOUTH ONCE MOUTH ONCE TABLET BY l DAILY IN DAILY IN MOUTH ONCE C linics THE MORNING THE MORNING DAILY IN ON AN EMPTY ON AN EMPTY THE STOMACH STOMACH MORNING ON WITH A WITH A AN EMPTY GLASS OF GLASS OF STOMACH WATER ONE WATER ONE WITH A HOUR BEFORE HOUR BEFORE GLASS OF EATING EATING WATER ONE BREAKFAST BREAKFAST HOUR BEFORE EATING BREAKFAST ferrous ferrous No ferrous [facility] sulfate 325 sulfate 325 sulfate [facility] mg (65 mg mg (65 mg 325 mg (65 ty iron) iron) mg iron) [facility] tablet TAKE tablet TAKE tablet l 1 TABLET BY 1 TABLET BY TAKE 1 Clinics MOUTH THREE MOUTH THREE TABLET BY TIMES DAILY TIMES DAILY MOUTH DIRECTED DIRECTED THREE TIMES DAILY DIRECTED Humulin R Humulin R No 25unit( Q1D Humulin R [facility] Regular Regular s) Regular Commun i U-100 U-100 U-100 ty Insulin 100 Insulin 100 Insulin [facility] unit/mL unit/mL 100 l injection injection unit/mL [facility] solution solution injection Take 25 Take 25 solution units every units every Take 25 day by day by units injection injection every day route at route at by bedtime for bedtime for injection 30 days. 30 days. route at bedtime for 30 days. ibuprofen ibuprofen No ibuprofen [facility] 800 mg 800 mg 800 mg [facility] tablet TAKE tablet TAKE tablet ty 1 TABLET BY 1 TABLET BY TAKE 1 [facility] MOUTH THREE MOUTH THREE TABLET BY l TIMES DAILY TIMES DAILY MOUTH Clinics NEEDED NEEDED THREE TIMES DAILY NEEDED insulin insulin No 50unit( BID insulin Swe [facility] aspar aspar s) aspar [facility] prt-insulin prt-insulin prt-insuli ty aspart 100 aspart 100 n aspart [facility] unit/mL unit/mL 100 l (70-30) (70-30) unit/mL Clinic s subcutaneou subcutaneou (70-30) s soln s soln subcutaneo Inject 50 Inject 50 us soln units twice units twice Inject 50 a day by a day by units subcutaneou subcutaneou twice a s route as s route as day by directed directed subcutaneo for 30 for 30 us route days. days. as directed for 30 days. lisinopril lisinopril No lisinopril [facility] 20 20 20 [facility] mg-hydrochl mg-hydrochl mg-hydroch ty orothiazide orothiazide [facility] 25 mg 25 mg de 25 mg l tablet TAKE tablet TAKE tablet [facility] 1 TABLET BY 1 TABLET BY TAKE 1 MOUTH ONCE MOUTH ONCE TABLET BY DAILY IN DAILY IN MOUTH ONCE THE MORNING THE MORNING DAILY IN THE MORNING lovastatin lovastatin No lovastatin [facility] 20 mg 20 mg 20 mg [facility] tablet TAKE tablet TAKE tablet ty 1 TABLET BY 1 TABLET BY TAKE 1 [facility] MOUTH ONCE MOUTH ONCE TABLET BY l DAILY AT DAILY AT MOUTH ONCE C [facility] BEDTIME BEDTIME DAILY AT BEDTIME metformin metformin No metformin [facility] 1,000 mg 1,000 mg 1,000 mg Com [facility] tablet TAKE tablet TAKE tablet ty 1 TABLET BY 1 TABLET BY TAKE 1 [facility] MOUTH TWICE MOUTH TWICE TABLET BY l DAILY DAILY MOUTH Clinics BEFORE BEFORE TWICE MEAL(S) MEAL(S) DAILY BEFORE MEAL(S) mometasone mometasone No mometasone [facility] 50 50 50 [facility] mcg/actuati mcg/actuati mcg/actuat ty on nasal on nasal ion nasal [facility] spray USE 2 spray USE 2 spray USE l SPRAY(S) IN SPRAY(S) IN 2 SPRAY(S) Clinics EACH EACH IN EACH NOSTRIL NOSTRIL NOSTRIL ONCE DAILY ONCE DAILY ONCE DAILY DIRECTED DIRECTED FOR 14 DAYS FOR 14 DAYS DIRECTED FOR 14 DAYS montelukast montelukast No montelukas [facility] 10 mg 10 mg t 10 mg [facility] tablet TAKE tablet TAKE tablet ty 1 TABLET BY 1 TABLET BY TAKE 1 [facility] MOUTH ONCE MOUTH ONCE TABLET BY l DAILY DAILY MOUTH ONCE C [facility] DIRECTED DIRECTED DAILY DIRECTED omeprazole omeprazole No omeprazole [facility] 20 mg 20 mg 20 mg [facility] capsule,del capsule,del capsule,de ty ayed ayed layed [facility] release release release l TAKE ONE TAKE ONE TAKE ONE Cli nics (1) (1) (1) CAPSULE(S) CAPSULE(S) CAPSULE(S) BY MOUTH BY MOUTH BY MOUTH EVERY EVERY EVERY MORNING. MORNING. MORNING. amlodipine amlodipine No amlodipine [facility] 10 mg 10 mg 10 mg [facility] tablet TAKE tablet TAKE tablet ty 1 TABLET BY 1 TABLET BY TAKE 1 [facility] MOUTH ONCE MOUTH ONCE TABLET BY l DAILY DAILY MOUTH ONCE C [facility] DIRECTED DIRECTED DAILY FOR 90 DAYS FOR 90 DAYS DIRECTED FOR 90 DAYS amoxicillin amoxicillin No amoxicilli [facility] [id number] n 875 [facility] mg-potassiu mg-potassiu mg-potassi ty m m [facility] clavulanate clavulanate clavulanat l 125 mg 125 mg e 125 mg Clinics tablet TAKE tablet TAKE tablet 1 TABLET BY 1 TABLET BY TAKE 1 MOUTH EVERY MOUTH EVERY TABLET BY 12 HOURS 12 HOURS MOUTH DIRECTED DIRECTED EVERY 12 FOR 7 DAYS FOR 7 DAYS HOURS DIRECTED FOR 7 DAYS Euthyrox 25 Euthyrox 25 No Euthyrox [facility] mcg tablet mcg tablet 25 mcg [facility] TAKE 1 TAKE 1 tablet ty TABLET BY TABLET BY TAKE 1 [facility] MOUTH ONCE MOUTH ONCE TABLET BY l DAILY IN DAILY IN MOUTH ONCE C earl THE MORNING THE MORNING DAILY IN ON AN EMPTY ON AN EMPTY THE STOMACH STOMACH MORNING ON WITH A WITH A AN EMPTY GLASS OF GLASS OF STOMACH WATER ONE WATER ONE WITH A HOUR BEFORE HOUR BEFORE GLASS OF EATING EATING WATER ONE BREAKFAST BREAKFAST HOUR BEFORE EATING BREAKFAST ferrous ferrous No ferrous [facility] sulfate 325 sulfate 325 sulfate [facility] mg (65 mg mg (65 mg 325 mg (65 ty iron) iron) mg iron) [facility] tablet TAKE tablet TAKE tablet l 1 TABLET BY 1 TABLET BY TAKE 1 Clinics MOUTH THREE MOUTH THREE TABLET BY TIMES DAILY TIMES DAILY MOUTH DIRECTED DIRECTED THREE TIMES DAILY DIRECTED Humulin R Humulin R No 25unit( Q1D Humulin R [facility] Regular Regular s) Regular Commun i U-100 U-100 U-100 ty Insulin 100 Insulin 100 Insulin [facility] unit/mL unit/mL 100 l injection injection unit/mL [facility] solution solution injection Take 25 Take 25 solution units every units every Take 25 day by day by units injection injection every day route at route at by bedtime for bedtime for injection 30 days. 30 days. route at bedtime for 30 days. ibuprofen ibuprofen No ibuprofen [facility] 800 mg 800 mg 800 mg [facility] tablet TAKE tablet TAKE tablet ty 1 TABLET BY 1 TABLET BY TAKE 1 [facility] MOUTH THREE MOUTH THREE TABLET BY l TIMES DAILY TIMES DAILY MOUTH Clinics NEEDED NEEDED THREE TIMES DAILY NEEDED insulin insulin No 50unit( BID insulin Swe ar[facility] aspar aspar s) aspar [facility] prt-insulin prt-insulin prt-insuli ty aspart 100 aspart 100 n aspart [facility] unit/mL unit/mL 100 l (70-30) (70-30) unit/mL Clinic s subcutaneou subcutaneou (70-30) s soln s soln subcutaneo Inject 50 Inject 50 us soln units twice units twice Inject 50 a day by a day by units subcutaneou subcutaneou twice a s route as s route as day by directed directed subcutaneo for 30 for 30 us route days. days. as directed for 30 days. lisinopril lisinopril No lisinopril [facility] 20 20 20 [facility] mg-hydrochl mg-hydrochl mg-hydroch ty orothiazide orothiazide [facility] 25 mg 25 mg de 25 mg l tablet TAKE tablet TAKE tablet [facility] 1 TABLET BY 1 TABLET BY TAKE 1 MOUTH ONCE MOUTH ONCE TABLET BY DAILY IN DAILY IN MOUTH ONCE THE MORNING THE MORNING DAILY IN THE MORNING lovastatin lovastatin No lovastatin [facility] 20 mg 20 mg 20 mg [facility] tablet TAKE tablet TAKE tablet ty 1 TABLET BY 1 TABLET BY TAKE 1 [facility] MOUTH ONCE MOUTH ONCE TABLET BY l DAILY AT DAILY AT MOUTH ONCE C [facility]ics BEDTIME BEDTIME DAILY AT BEDTIME metformin metformin No metformin [facility] 1,000 mg 1,000 mg 1,000 mg Com os[facility] tablet TAKE tablet TAKE tablet ty 1 TABLET BY 1 TABLET BY TAKE 1 [facility] MOUTH TWICE MOUTH TWICE TABLET BY l DAILY DAILY MOUTH Clinics BEFORE BEFORE TWICE MEAL(S) MEAL(S) DAILY BEFORE MEAL(S) mometasone mometasone No mometasone [facility] 50 50 50 [facility] mcg/actuati mcg/actuati mcg/actuat ty on nasal on nasal ion nasal [facility] spray USE 2 spray USE 2 spray USE l SPRAY(S) IN SPRAY(S) IN 2 SPRAY(S) Clinics EACH EACH IN EACH NOSTRIL NOSTRIL NOSTRIL ONCE DAILY ONCE DAILY ONCE DAILY DIRECTED DIRECTED FOR 14 DAYS FOR 14 DAYS DIRECTED FOR 14 DAYS omeprazole omeprazole No omeprazole [facility] 20 mg 20 mg 20 mg [facility] capsule,del capsule,del capsule,de ty ayed ayed layed [facility] release release release l TAKE ONE TAKE ONE TAKE ONE Cli nics (1) (1) (1) CAPSULE(S) CAPSULE(S) CAPSULE(S) BY MOUTH BY MOUTH BY MOUTH EVERY EVERY EVERY MORNING. MORNING. MORNING. amlodipine amlodipine No amlodipine [facility] 10 mg 10 mg 10 mg [facility] tablet TAKE tablet TAKE tablet ty 1 TABLET BY 1 TABLET BY TAKE 1 [facility] MOUTH ONCE MOUTH ONCE TABLET BY l DAILY DAILY MOUTH ONCE C lin[facility] DIRECTED DIRECTED DAILY FOR 90 DAYS FOR 90 DAYS DIRECTED FOR 90 DAYS Euthyrox 25 Euthyrox 25 No Euthyrox [facility] mcg tablet mcg tablet 25 mcg [facility] TAKE 1 TAKE 1 tablet ty TABLET BY TABLET BY TAKE 1 [facility] MOUTH ONCE MOUTH ONCE TABLET BY l DAILY IN DAILY IN MOUTH ONCE C lin[facility] THE MORNING THE MORNING DAILY IN ON AN EMPTY ON AN EMPTY THE STOMACH STOMACH MORNING ON WITH A WITH A AN EMPTY GLASS OF GLASS OF STOMACH WATER ONE WATER ONE WITH A HOUR BEFORE HOUR BEFORE GLASS OF EATING EATING WATER ONE BREAKFAST BREAKFAST HOUR BEFORE EATING BREAKFAST ferrous ferrous No ferrous [facility] sulfate 325 sulfate 325 sulfate [facility] mg (65 mg mg (65 mg 325 mg (65 ty iron) iron) mg iron) [facility] tablet TAKE tablet TAKE tablet l 1 TABLET BY 1 TABLET BY TAKE 1 Clinics MOUTH THREE MOUTH THREE TABLET BY TIMES DAILY TIMES DAILY MOUTH DIRECTED DIRECTED THREE TIMES DAILY DIRECTED ibuprofen ibuprofen No ibuprofen [facility] 800 mg 800 mg 800 mg [facility] tablet TAKE tablet TAKE tablet ty 1 TABLET BY 1 TABLET BY TAKE 1 [facility] mouth DAILY mouth DAILY TABLET BY l NEEDED NEEDED mouth Clin ics DAILY NEEDED lisinopril lisinopril No lisinopril [facility] 20 20 20 [facility] mg-hydrochl mg-hydrochl mg-hydroch ty orothiazide orothiazide [facility] 25 mg 25 mg de 25 mg l tablet TAKE tablet TAKE tablet [facility] 1 TABLET BY 1 TABLET BY TAKE 1 MOUTH ONCE MOUTH ONCE TABLET BY DAILY IN DAILY IN MOUTH ONCE THE MORNING THE MORNING DAILY IN THE MORNING lovastatin lovastatin No 1 Q1D lovastatin [facility] 10 mg 10 mg 10 mg [facility] tablet Take tablet Take tablet ty 1 tablet 1 tablet Take 1 [facility] ta every day every day tablet l by oral by oral every day Clin ics route for route for by oral 90 days. 90 days. route for 90 days. lovastatin lovastatin No lovastatin [facility] 20 mg 20 mg 20 mg [facility] tablet TAKE tablet TAKE tablet ty 1 TABLET BY 1 TABLET BY TAKE 1 [facility] MOUTH ONCE MOUTH ONCE TABLET BY l DAILY AT DAILY AT MOUTH ONCE C [facility] BEDTIME BEDTIME DAILY AT BEDTIME metformin metformin No metformin [facility] 1,000 mg 1,000 mg 1,000 mg Com os[facility]do tablet TAKE tablet TAKE tablet ty 1 TABLET BY 1 TABLET BY TAKE 1 [facility] MOUTH TWICE MOUTH TWICE TABLET BY l DAILY DAILY MOUTH Clinics BEFORE BEFORE TWICE MEAL(S) MEAL(S) DAILY BEFORE MEAL(S) mometasone mometasone No mometasone [facility] 50 50 50 [facility] mcg/actuati mcg/actuati mcg/actuat ty on nasal on nasal ion nasal [facility] spray USE 2 spray USE 2 spray USE l SPRAY(S) IN SPRAY(S) IN 2 SPRAY(S) Clinics EACH EACH IN EACH NOSTRIL NOSTRIL NOSTRIL ONCE DAILY ONCE DAILY ONCE DAILY DIRECTED DIRECTED FOR 14 DAYS FOR 14 DAYS DIRECTED FOR 14 DAYS omeprazole omeprazole No omeprazole [facility] 20 mg 20 mg 20 mg [facility] capsule,del capsule,del capsule,de ty ayed ayed layed [facility] release release release l TAKE ONE TAKE ONE TAKE ONE Cli nics (1) (1) (1) CAPSULE(S) CAPSULE(S) CAPSULE(S) BY MOUTH BY MOUTH BY MOUTH EVERY EVERY EVERY MORNING. MORNING. MORNING. amlodipine amlodipine No amlodipine [facility] 10 mg 10 mg 10 mg [facility] tablet TAKE tablet TAKE tablet ty 1 TABLET BY 1 TABLET BY TAKE 1 [facility] MOUTH ONCE MOUTH ONCE TABLET BY l DAILY DAILY MOUTH ONCE C linics DIRECTED DIRECTED DAILY FOR 90 DAYS FOR 90 DAYS DIRECTED FOR 90 DAYS ciprofloxac ciprofloxac No 1 Q12H ciprofloxa [facility] in 500 mg in 500 mg harriet 500 mg [facility] tablet Take tablet Take tablet ty 1 tablet 1 tablet Take 1 Hospi ta every 12 every 12 tablet l hours by hours by every 12 Cli nics oral route oral route hours by for 10 for 10 oral route days. days. for 10 days. Euthyrox 25 Euthyrox 25 No Euthyrox [facility] mcg tablet mcg tablet 25 mcg [facility] TAKE 1 TAKE 1 tablet ty TABLET BY TABLET BY TAKE 1 [facility] MOUTH ONCE MOUTH ONCE TABLET BY l DAILY IN DAILY IN MOUTH ONCE C linics THE MORNING THE MORNING DAILY IN ON AN EMPTY ON AN EMPTY THE STOMACH STOMACH MORNING ON WITH A WITH A AN EMPTY GLASS OF GLASS OF STOMACH WATER ONE WATER ONE WITH A HOUR BEFORE HOUR BEFORE GLASS OF EATING EATING WATER ONE BREAKFAST BREAKFAST HOUR BEFORE EATING BREAKFAST ferrous ferrous No ferrous [facility] sulfate 325 sulfate 325 sulfate [facility] mg (65 mg mg (65 mg 325 mg (65 ty iron) iron) mg iron) [facility] tablet TAKE tablet TAKE tablet l 1 TABLET BY 1 TABLET BY TAKE 1 Clinics MOUTH THREE MOUTH THREE TABLET BY TIMES DAILY TIMES DAILY MOUTH DIRECTED DIRECTED THREE TIMES DAILY DIRECTED ibuprofen ibuprofen No ibuprofen [facility] 800 mg 800 mg 800 mg [facility] tablet TAKE tablet TAKE tablet ty 1 TABLET BY 1 TABLET BY TAKE 1 [facility] mouth DAILY mouth DAILY TABLET BY l NEEDED NEEDED mouth Clin ics DAILY NEEDED lisinopril lisinopril No lisinopril [facility] 20 20 20 [facility] mg-hydrochl mg-hydrochl mg-hydroch ty orothiazide orothiazide [facility] 25 mg 25 mg de 25 mg l tablet TAKE tablet TAKE tablet Clinics 1 TABLET BY 1 TABLET BY TAKE 1 MOUTH ONCE MOUTH ONCE TABLET BY DAILY IN DAILY IN MOUTH ONCE THE MORNING THE MORNING DAILY IN THE MORNING lovastatin lovastatin No 1 Q1D lovastatin [facility] 10 mg 10 mg 10 mg [facility] tablet Take tablet Take tablet ty 1 tablet 1 tablet Take 1 Hospi ta every day every day tablet l by oral by oral every day Clin ics route for route for by oral 90 days. 90 days. route for 90 days. metformin metformin No metformin [facility] 1,000 mg 1,000 mg 1,000 mg [facility] tablet TAKE tablet TAKE tablet ty 1 TABLET BY 1 TABLET BY TAKE 1 [facility] MOUTH TWICE MOUTH TWICE TABLET BY l DAILY DAILY MOUTH Clinics BEFORE BEFORE TWICE MEAL(S) MEAL(S) DAILY BEFORE MEAL(S) mometasone mometasone No mometasone [facility] 50 50 50 [facility] mcg/actuati mcg/actuati mcg/actuat ty on nasal on nasal ion nasal [facility] spray USE 2 spray USE 2 spray USE l SPRAY(S) IN SPRAY(S) IN 2 SPRAY(S) Clinics EACH EACH IN EACH NOSTRIL NOSTRIL NOSTRIL ONCE DAILY ONCE DAILY ONCE DAILY DIRECTED DIRECTED FOR 14 DAYS FOR 14 DAYS DIRECTED FOR 14 DAYS omeprazole omeprazole No omeprazole [facility] 20 mg 20 mg 20 mg [facility] capsule,del capsule,del capsule,de ty ayed ayed layed [facility] release release release l TAKE ONE TAKE ONE TAKE ONE Cli nics (1) (1) (1) CAPSULE(S) CAPSULE(S) CAPSULE(S) BY MOUTH BY MOUTH BY MOUTH EVERY EVERY EVERY MORNING. MORNING. MORNING. amlodipine amlodipine No amlodipine [facility] 10 mg 10 mg 10 mg [facility] tablet TAKE tablet TAKE tablet ty 1 TABLET BY 1 TABLET BY TAKE 1 [facility] MOUTH ONCE MOUTH ONCE TABLET BY l DAILY DAILY MOUTH ONCE C linics DIRECTED DIRECTED DAILY DIRECTED benzonatate benzonatate No benzonatat [facility] 100 mg 100 mg e 100 mg [facility] capsule capsule capsule ty TAKE 1 TAKE 1 TAKE 1 [facility] CAPSULE BY CAPSULE BY CAPSULE BY l MOUTH EVERY MOUTH EVERY MOUTH Clinics 8 HOURS 8 HOURS EVERY 8 NEEDED FOR NEEDED FOR HOURS COUGH COUGH NEEDED FOR COUGH Euthyrox 25 Euthyrox 25 No Euthyrox [facility] mcg tablet mcg tablet 25 mcg [facility] TAKE 1 TAKE 1 tablet ty TABLET BY TABLET BY TAKE 1 [facility] MOUTH ONCE MOUTH ONCE TABLET BY l DAILY IN DAILY IN MOUTH ONCE C linics THE MORNING THE MORNING DAILY IN ON AN EMPTY ON AN EMPTY THE STOMACH STOMACH MORNING ON WITH A WITH A AN EMPTY GLASS OF GLASS OF STOMACH WATER ONE WATER ONE WITH A HOUR BEFORE HOUR BEFORE GLASS OF EATING EATING WATER ONE BREAKFAST BREAKFAST HOUR BEFORE EATING BREAKFAST ferrous ferrous No ferrous [facility] sulfate 325 sulfate 325 sulfate [facility] mg (65 mg mg (65 mg 325 mg (65 ty iron) iron) mg iron) [facility] tablet TAKE tablet TAKE tablet l 1 TABLET BY 1 TABLET BY TAKE 1 Clinics MOUTH THREE MOUTH THREE TABLET BY TIMES DAILY TIMES DAILY MOUTH DIRECTED DIRECTED THREE TIMES DAILY DIRECTED ibuprofen ibuprofen No ibuprofen [facility] 800 mg 800 mg 800 mg [facility] tablet TAKE tablet TAKE tablet ty 1 TABLET BY 1 TABLET BY TAKE 1 [facility] MOUTH ONCE MOUTH ONCE TABLET BY l DAILY DAILY MOUTH ONCE C linics NEEDED NEEDED DAILY NEEDED lisinopril lisinopril No lisinopril [facility] 20 20 20 [facility] mg-hydrochl mg-hydrochl mg-hydroch ty orothiazide orothiazide [facility] 25 mg 25 mg de 25 mg l tablet TAKE tablet TAKE tablet Clinics 1 TABLET BY 1 TABLET BY TAKE 1 MOUTH ONCE MOUTH ONCE TABLET BY DAILY IN DAILY IN MOUTH ONCE THE MORNING THE MORNING DAILY IN THE MORNING lovastatin lovastatin No 1 Q1D lovastatin [facility] 20 mg 20 mg 20 mg [facility] tablet Take tablet Take tablet ty 1 tablet 1 tablet Take 1 [facility] ta every day every day tablet l by oral by oral every day Clin ics route in route in by oral the the route in evening. evening. the evening. metformin metformin No metformin [facility] 1,000 mg 1,000 mg 1,000 mg [facility] tablet TAKE tablet TAKE tablet ty 1 TABLET BY 1 TABLET BY TAKE 1 [facility] MOUTH TWICE MOUTH TWICE TABLET BY l DAILY DAILY MOUTH Clinics BEFORE BEFORE TWICE MEAL(S) MEAL(S) DAILY BEFORE MEAL(S) montelukast montelukast No montelukas [facility] 10 mg 10 mg t 10 mg [facility] tablet TAKE tablet TAKE tablet ty 1 TABLET BY 1 TABLET BY TAKE 1 [facility] MOUTH ONCE MOUTH ONCE TABLET BY l DAILY DAILY MOUTH ONCE C lin[facility] DIRECTED DIRECTED DAILY DIRECTED omeprazole omeprazole No omeprazole [facility] 20 mg 20 mg 20 mg [facility] capsule,del capsule,del capsule,de ty ayed ayed layed [facility] release release release l TAKE ONE TAKE ONE TAKE ONE Cli nics (1) (1) (1) CAPSULE(S) CAPSULE(S) CAPSULE(S) BY MOUTH BY MOUTH BY MOUTH EVERY EVERY EVERY MORNING. MORNING. MORNING. amlodipine amlodipine No amlodipine [facility] 10 mg 10 mg 10 mg [facility] tablet TAKE tablet TAKE tablet ty 1 TABLET BY 1 TABLET BY TAKE 1 [facility] MOUTH ONCE MOUTH ONCE TABLET BY l DAILY DAILY MOUTH ONCE C linics DIRECTED DIRECTED DAILY DIRECTED amoxicillin amoxicillin No amoxicilli [facility] [id number] n 875 [facility] mg-potassiu mg-potassiu mg-potassi ty m m um [facility] clavulanate clavulanate clavulanat l 125 mg 125 mg e 125 mg Clinics tablet TAKE tablet TAKE tablet 1 TABLET BY 1 TABLET BY TAKE 1 MOUTH EVERY MOUTH EVERY TABLET BY 12 HOURS 12 HOURS MOUTH DIRECTED DIRECTED EVERY 12 FOR 10 DAYS FOR 10 DAYS HOURS DIRECTED FOR 10 DAYS benzonatate benzonatate No benzonatat [facility] 100 mg 100 mg e 100 mg [facility] capsule capsule capsule ty TAKE 1 TAKE 1 TAKE 1 [facility] CAPSULE BY CAPSULE BY CAPSULE BY l MOUTH EVERY MOUTH EVERY MOUTH Clinics 8 HOURS 8 HOURS EVERY 8 NEEDED FOR NEEDED FOR HOURS COUGH COUGH NEEDED FOR COUGH cetirizine cetirizine No 1 Q1D cetirizine [facility] 10 mg 10 mg 10 mg [facility] tablet Take tablet Take tablet ty 1 tablet 1 tablet Take 1 [facility] ta every day every day tablet l by oral by oral every day Clin ics route. route. by oral route. Euthyrox 25 Euthyrox 25 No Euthyrox [facility] mcg tablet mcg tablet 25 mcg [facility] TAKE 1 TAKE 1 tablet ty TABLET BY TABLET BY TAKE 1 [facility] MOUTH ONCE MOUTH ONCE TABLET BY l DAILY IN DAILY IN MOUTH ONCE C linics THE MORNING THE MORNING DAILY IN ON AN EMPTY ON AN EMPTY THE STOMACH STOMACH MORNING ON WITH A WITH A AN EMPTY GLASS OF GLASS OF STOMACH WATER ONE WATER ONE WITH A HOUR BEFORE HOUR BEFORE GLASS OF EATING EATING WATER ONE BREAKFAST BREAKFAST HOUR BEFORE EATING BREAKFAST ferrous ferrous No ferrous [facility] sulfate 325 sulfate 325 sulfate [facility] mg (65 mg mg (65 mg 325 mg (65 ty iron) iron) mg iron) [facility] tablet TAKE tablet TAKE tablet l 1 TABLET BY 1 TABLET BY TAKE 1 Clinics MOUTH THREE MOUTH THREE TABLET BY TIMES DAILY TIMES DAILY MOUTH DIRECTED DIRECTED THREE TIMES DAILY DIRECTED ibuprofen ibuprofen No ibuprofen [facility] 800 mg 800 mg 800 mg [facility] tablet TAKE tablet TAKE tablet ty 1 TABLET BY 1 TABLET BY TAKE 1 [facility] MOUTH ONCE MOUTH ONCE TABLET BY l DAILY DAILY MOUTH ONCE C linics NEEDED NEEDED DAILY NEEDED Kenalog 40 Kenalog 40 No 40mg Kenalog 40 [facility] mg/mL mg/mL mg/mL [facility] suspension suspension suspension ty for for for [facility] injection injection injection l Take 40 mg Take 40 mg Take 40 mg Clinics by by by injection injection injection route as route as route as directed directed directed for 1 day. for 1 day. for 1 day. lisinopril lisinopril No lisinopril [facility] 20 20 20 [facility] mg-hydrochl mg-hydrochl mg-hydroch ty orothiazide orothiazide [facility] 25 mg 25 mg de 25 mg l tablet TAKE tablet TAKE tablet Clinics 1 TABLET BY 1 TABLET BY TAKE 1 MOUTH ONCE MOUTH ONCE TABLET BY DAILY IN DAILY IN MOUTH ONCE THE MORNING THE MORNING DAILY IN THE MORNING lovastatin lovastatin No 1 Q1D lovastatin [facility] 20 mg 20 mg 20 mg [facility] tablet Take tablet Take tablet ty 1 tablet 1 tablet Take 1 [facility] ta every day every day tablet l by oral by oral every day Clin ics route in route in by oral the the route in evening. evening. the evening. metformin metformin No metformin [facility] 1,000 mg 1,000 mg 1,000 mg [facility] tablet TAKE tablet TAKE tablet ty 1 TABLET BY 1 TABLET BY TAKE 1 [facility] MOUTH TWICE MOUTH TWICE TABLET BY l DAILY DAILY MOUTH Clinics BEFORE BEFORE TWICE MEAL(S) MEAL(S) DAILY BEFORE MEAL(S) montelukast montelukast No montelukas [facility] 10 mg 10 mg t 10 mg [facility] tablet TAKE tablet TAKE tablet ty 1 TABLET BY 1 TABLET BY TAKE 1 [facility] MOUTH ONCE MOUTH ONCE TABLET BY l DAILY DAILY MOUTH ONCE C linics DIRECTED DIRECTED DAILY DIRECTED omeprazole omeprazole No omeprazole [facility] 20 mg 20 mg 20 mg [facility] capsule,del capsule,del capsule,de ty ayed ayed layed [facility] release release release l TAKE ONE TAKE ONE TAKE ONE Cli nics (1) (1) (1) CAPSULE(S) CAPSULE(S) CAPSULE(S) BY MOUTH BY MOUTH BY MOUTH EVERY EVERY EVERY MORNING. MORNING. MORNING. promethazin promethazin No promethazi [facility] e-DM 6.25 e-DM 6.25 ne-DM 6.25 [facility] mg-15 mg/5 mg-15 mg/5 mg-15 mg/5 ty mL oral mL oral mL oral Hospit a syrup TAKE syrup TAKE syrup TAKE l 5 ML BY 5 ML BY 5 ML BY Clinic s MOUTH ONCE MOUTH ONCE MOUTH ONCE DAILY AT DAILY AT DAILY AT BEDTIME FOR BEDTIME FOR BEDTIME 10 DAYS 10 DAYS FOR 10 DAYS amlodipine amlodipine No amlodipine [facility] 10 mg 10 mg 10 mg [facility] tablet TAKE tablet TAKE tablet ty 1 TABLET BY 1 TABLET BY TAKE 1 [facility] MOUTH ONCE MOUTH ONCE TABLET BY l DAILY DAILY MOUTH ONCE C linics DIRECTED DIRECTED DAILY DIRECTED amoxicillin amoxicillin No amoxicilli [facility] [id number] n 875 [facility] mg-potassiu mg-potassiu mg-potassi ty m m um [facility] clavulanate clavulanate clavulanat l 125 mg 125 mg e 125 mg Clinics tablet TAKE tablet TAKE tablet 1 TABLET BY 1 TABLET BY TAKE 1 MOUTH EVERY MOUTH EVERY TABLET BY 12 HOURS 12 HOURS MOUTH DIRECTED DIRECTED EVERY 12 FOR 10 DAYS FOR 10 DAYS HOURS DIRECTED FOR 10 DAYS benzonatate benzonatate No benzonatat [facility] 100 mg 100 mg e 100 mg [facility] capsule capsule capsule ty TAKE 1 TAKE 1 TAKE 1 [facility] CAPSULE BY CAPSULE BY CAPSULE BY l MOUTH EVERY MOUTH EVERY MOUTH Clinics 8 HOURS 8 HOURS EVERY 8 NEEDED FOR NEEDED FOR HOURS COUGH COUGH NEEDED FOR COUGH cetirizine cetirizine No 1 Q1D cetirizine [facility] 10 mg 10 mg 10 mg [facility] tablet Take tablet Take tablet ty 1 tablet 1 tablet Take 1 [facility] ta every day every day tablet l by oral by oral every day Clin ics route. route. by oral route. Euthyrox 25 Euthyrox 25 No Euthyrox [facility] mcg tablet mcg tablet 25 mcg [facility] TAKE 1 TAKE 1 tablet ty TABLET BY TABLET BY TAKE 1 [facility] MOUTH ONCE MOUTH ONCE TABLET BY l DAILY IN DAILY IN MOUTH ONCE C linics THE MORNING THE MORNING DAILY IN ON AN EMPTY ON AN EMPTY THE STOMACH STOMACH MORNING ON WITH A WITH A AN EMPTY GLASS OF GLASS OF STOMACH WATER ONE WATER ONE WITH A HOUR BEFORE HOUR BEFORE GLASS OF EATING EATING WATER ONE BREAKFAST BREAKFAST HOUR BEFORE EATING BREAKFAST ferrous ferrous No ferrous [facility] sulfate 325 sulfate 325 sulfate [facility] mg (65 mg mg (65 mg 325 mg (65 ty iron) iron) mg iron) [facility] tablet TAKE tablet TAKE tablet l 1 TABLET BY 1 TABLET BY TAKE 1 Clinics MOUTH THREE MOUTH THREE TABLET BY TIMES DAILY TIMES DAILY MOUTH DIRECTED DIRECTED THREE TIMES DAILY DIRECTED ibuprofen ibuprofen No ibuprofen [facility] 800 mg 800 mg 800 mg [facility] tablet TAKE tablet TAKE tablet ty 1 TABLET BY 1 TABLET BY TAKE 1 [facility] MOUTH ONCE MOUTH ONCE TABLET BY l DAILY DAILY MOUTH ONCE C linics NEEDED NEEDED DAILY NEEDED Kenalog 40 Kenalog 40 No 40mg Kenalog 40 [facility] mg/mL mg/mL mg/mL [facility] suspension suspension suspension ty for for for [facility] injection injection injection l Take 40 mg Take 40 mg Take 40 mg Clinics by by by injection injection injection route as route as route as directed directed directed for 1 day. for 1 day. for 1 day. lisinopril lisinopril No lisinopril [facility] 20 20 20 [facility] mg-hydrochl mg-hydrochl mg-hydroch ty orothiazide orothiazide [facility] 25 mg 25 mg de 25 mg l tablet TAKE tablet TAKE tablet Clinics 1 TABLET BY 1 TABLET BY TAKE 1 MOUTH ONCE MOUTH ONCE TABLET BY DAILY IN DAILY IN MOUTH ONCE THE MORNING THE MORNING DAILY IN THE MORNING lovastatin lovastatin No 1 Q1D lovastatin [facility] 20 mg 20 mg 20 mg [facility] tablet Take tablet Take tablet ty 1 tablet 1 tablet Take 1 [facility] ta every day every day tablet l by oral by oral every day Clin ics route in route in by oral the the route in evening. evening. the evening. metformin metformin No metformin [facility] 1,000 mg 1,000 mg 1,000 mg [facility] tablet TAKE tablet TAKE tablet ty 1 TABLET BY 1 TABLET BY TAKE 1 [facility] MOUTH TWICE MOUTH TWICE TABLET BY l DAILY DAILY MOUTH Clinics BEFORE BEFORE TWICE MEAL(S) MEAL(S) DAILY BEFORE MEAL(S) montelukast montelukast No montelukas [facility] 10 mg 10 mg t 10 mg [facility] tablet TAKE tablet TAKE tablet ty 1 TABLET BY 1 TABLET BY TAKE 1 [facility] MOUTH ONCE MOUTH ONCE TABLET BY l DAILY DAILY MOUTH ONCE C linics DIRECTED DIRECTED DAILY DIRECTED omeprazole omeprazole No omeprazole [facility] 20 mg 20 mg 20 mg [facility] capsule,del capsule,del capsule,de ty ayed ayed layed [facility] release release release l TAKE ONE TAKE ONE TAKE ONE Cli nics (1) (1) (1) CAPSULE(S) CAPSULE(S) CAPSULE(S) BY MOUTH BY MOUTH BY MOUTH EVERY EVERY EVERY MORNING. MORNING. MORNING. promethazin promethazin No promethazi [facility] e-DM 6.25 e-DM 6.25 ne-DM 6.25 [facility] mg-15 mg/5 mg-15 mg/5 mg-15 mg/5 ty mL oral mL oral mL oral Hospit a syrup TAKE syrup TAKE syrup TAKE l 5 ML BY 5 ML BY 5 ML BY Clinic s MOUTH ONCE MOUTH ONCE MOUTH ONCE DAILY AT DAILY AT DAILY AT BEDTIME FOR BEDTIME FOR BEDTIME 10 DAYS 10 DAYS FOR 10 DAYS amlodipine amlodipine No amlodipine [facility] 10 mg 10 mg 10 mg [facility] tablet TAKE tablet TAKE tablet ty 1 TABLET BY 1 TABLET BY TAKE 1 [facility] MOUTH ONCE MOUTH ONCE TABLET BY l DAILY DAILY MOUTH ONCE C linics DIRECTED DIRECTED DAILY DIRECTED cetirizine cetirizine No 1 Q1D cetirizine [facility] 10 mg 10 mg 10 mg [facility] tablet Take tablet Take tablet ty 1 tablet 1 tablet Take 1 [facility] ta every day every day tablet l by oral by oral every day Clin ics route. route. by oral route. doxycycline doxycycline No 1capsul BID doxycyclin [facility] hyclate 100 hyclate 100 e(s) e hyclate [facility] mg capsule mg capsule 100 mg t y Take 1 Take 1 capsule [facility] capsule capsule Take 1 l twice a day twice a day capsule Clinics by oral by oral twice a route for 7 route for 7 day by days. days. oral route for 7 days. Euthyrox 25 Euthyrox 25 No Euthyrox [facility] mcg tablet mcg tablet 25 mcg [facility] TAKE 1 TAKE 1 tablet ty TABLET BY TABLET BY TAKE 1 [facility] MOUTH ONCE MOUTH ONCE TABLET BY l DAILY IN DAILY IN MOUTH ONCE C linics THE MORNING THE MORNING DAILY IN ON AN EMPTY ON AN EMPTY THE STOMACH STOMACH MORNING ON WITH A WITH A AN EMPTY GLASS OF GLASS OF STOMACH WATER ONE WATER ONE WITH A HOUR BEFORE HOUR BEFORE GLASS OF EATING EATING WATER ONE BREAKFAST BREAKFAST HOUR BEFORE EATING BREAKFAST ferrous ferrous No ferrous [facility] sulfate 325 sulfate 325 sulfate [facility] mg (65 mg mg (65 mg 325 mg (65 ty iron) iron) mg iron) [facility] tablet TAKE tablet TAKE tablet l 1 TABLET BY 1 TABLET BY TAKE 1 Clinics MOUTH THREE MOUTH THREE TABLET BY TIMES DAILY TIMES DAILY MOUTH DIRECTED DIRECTED THREE TIMES DAILY DIRECTED fluticasone fluticasone No 1spray( Q1D fluticason [facility] propionate propionate s) e [facility] 50 50 propionate ty mcg/actuati mcg/actuati 50 [facility] on nasal on nasal mcg/actuat l spray,suspe spray,suspe ion nasal Clinics nsion [place] nsion [place] spray,susp 1 spray 1 spray ension every day every day [place] 1 by by spray intranasal intranasal every day route. 1 route. 1 by SPRAY TO SPRAY TO intranasal EACH EACH route. 1 NOSTRIL NOSTRIL SPRAY TO EACH NOSTRIL guaifenesin guaifenesin No 1 Q12H guaifenesi [facility] ER 600 mg ER 600 mg n ER 600 [facility] tablet, tablet, mg tablet, ty extended extended extended [facility] release 12 release 12 release 12 l hr Take 1 hr Take 1 hr Take 1 Clinics tablet tablet tablet every 12 every 12 every 12 hours by hours by hours by oral route oral route oral route as needed. as needed. as needed. FOR COUGH FOR COUGH FOR COUGH ibuprofen ibuprofen No ibuprofen [facility] 800 mg 800 mg 800 mg [facility] tablet TAKE tablet TAKE tablet ty 1 TABLET BY 1 TABLET BY TAKE 1 [facility] MOUTH ONCE MOUTH ONCE TABLET BY l DAILY DAILY MOUTH ONCE C linics NEEDED NEEDED DAILY NEEDED lisinopril lisinopril No lisinopril [facility] 20 20 20 [facility] mg-hydrochl mg-hydrochl mg-hydroch ty orothiazide [facility]rothiazide [facility] 25 mg 25 mg de 25 mg l tablet TAKE tablet TAKE tablet Clinics 1 TABLET BY 1 TABLET BY TAKE 1 MOUTH ONCE MOUTH ONCE TABLET BY DAILY IN DAILY IN MOUTH ONCE THE MORNING THE MORNING DAILY IN THE MORNING lovastatin lovastatin No 1 Q1D lovastatin [facility] 20 mg 20 mg 20 mg [facility] tablet Take tablet Take tablet ty 1 tablet 1 tablet Take 1 [facility] ta every day every day tablet l by oral by oral every day Clin ics route in route in by oral the the route in evening. evening. the evening. metformin metformin No metformin [facility] 1,000 mg 1,000 mg 1,000 mg [facility] tablet TAKE tablet TAKE tablet ty 1 TABLET BY 1 TABLET BY TAKE 1 [facility] MOUTH TWICE MOUTH TWICE TABLET BY l DAILY DAILY MOUTH Clinics BEFORE BEFORE TWICE MEAL(S) MEAL(S) DAILY BEFORE MEAL(S) omeprazole omeprazole No omeprazole [facility] 20 mg 20 mg 20 mg [facility] capsule,del capsule,del capsule,de ty ayed ayed layed [facility] release release release l TAKE ONE TAKE ONE TAKE ONE Cli nics (1) (1) (1) CAPSULE(S) CAPSULE(S) CAPSULE(S) BY MOUTH BY MOUTH BY MOUTH EVERY EVERY EVERY MORNING. MORNING. MORNING. promethazin promethazin No promethazi [facility] e-DM 6.25 e-DM 6.25 ne-DM 6.25 [facility] mg-15 mg/5 mg-15 mg/5 mg-15 mg/5 ty mL oral mL oral mL oral Hospit a syrup TAKE syrup TAKE syrup TAKE l 5 ML BY 5 ML BY 5 ML BY Clinic s MOUTH ONCE MOUTH ONCE MOUTH ONCE DAILY AT DAILY AT DAILY AT BEDTIME BEDTIME BEDTIME NEEDED FOR NEEDED FOR NEEDED FOR COUGH COUGH COUGH amlodipine amlodipine No amlodipine [facility] 10 mg 10 mg 10 mg [facility] tablet TAKE tablet TAKE tablet ty 1 TABLET BY 1 TABLET BY TAKE 1 [facility] MOUTH ONCE MOUTH ONCE TABLET BY l DAILY DAILY MOUTH ONCE C linics DIRECTED DIRECTED DAILY DIRECTED amoxicillin amoxicillin No 1 BID amoxicilli [facility] [id number] n 875 [facility] mg-potassiu mg-potassiu mg-potassi ty [facility] clavulanate clavulanate clavulanat l 125 mg 125 mg e 125 mg Clinics tablet Take tablet Take tablet 1 tablet 1 tablet Take 1 twice a day twice a day tablet by oral by oral twice a route for 7 route for 7 day by days. days. oral route for 7 days. cetirizine cetirizine No 1 Q1D cetirizine [facility] 10 mg 10 mg 10 mg [facility] tablet Take tablet Take tablet ty 1 tablet 1 tablet Take 1 [facility] ta every day every day tablet l by oral by oral every day Clin ics route. route. by oral route. fluticasone fluticasone No fluticason [facility] propionate propionate e [facility] 50 50 propionate ty mcg/actuati mcg/actuati 50 [facility] on nasal on nasal mcg/actuat l spray,suspe spray,suspe ion nasal Clinics nsion [place]ion [place] spray,susp 1 spray 1 spray ension every day every day [place] 1 by by spray intranasal intranasal every day route. route. by intranasal route. ibuprofen ibuprofen No 1 BID ibuprofen [facility] 800 mg 800 mg 800 mg [facility] tablet Take tablet Take tablet ty 1 tablet 1 tablet Take 1 [facility] ta twice a day twice a day tablet l by oral by oral twice a Clinic s route as route as day by needed for needed for oral route 30 days. 30 days. as needed for 30 days. Kenalog 40 Kenalog 40 No 60mg Kenalog 40 [facility] mg/mL mg/mL mg/mL [facility] suspension suspension suspension ty for for for [facility]osp[facility] injection injection injection l Take 60 mg Take 60 mg Take 60 mg Clinics by by by injection injection injection route as route as route as directed. directed. directed. lisinopril lisinopril No lisinopril [facility] 20 20 20 [facility] mg-hydrochl mg-hydrochl mg-hydroch ty orothiazide orothiazide [facility] 25 mg 25 mg de 25 mg l tablet TAKE tablet TAKE tablet Clinics 1 TABLET BY 1 TABLET BY TAKE 1 MOUTH ONCE MOUTH ONCE TABLET BY DAILY IN DAILY IN MOUTH ONCE THE MORNING THE MORNING DAILY IN THE MORNING lovastatin lovastatin No 1 Q1D lovastatin [facility] 20 mg 20 mg 20 mg [facility] tablet Take tablet Take tablet ty 1 tablet 1 tablet Take 1 [facility]pi ta every day every day tablet l by oral by oral every day Clin ics route in route in by oral the the route in evening. evening. the evening. metformin metformin No metformin [facility] 1,000 mg 1,000 mg 1,000 mg [facility] tablet TAKE tablet TAKE tablet ty 1 TABLET BY 1 TABLET BY TAKE 1 [facility] MOUTH TWICE MOUTH TWICE TABLET BY l DAILY DAILY MOUTH Clinics BEFORE BEFORE TWICE MEAL(S) MEAL(S) DAILY BEFORE MEAL(S) promethazin promethazin No 5mL Q7H promethazi [facility] e-DM 6.25 e-DM 6.25 ne-DM 6.25 [facility] mg-15 mg/5 mg-15 mg/5 mg-15 mg/5 ty mL oral mL oral mL oral Hospit a syrup Take syrup Take syrup Take l 5 mL every 5 mL every 5 mL every Clinics 6-8 hours 6-8 hours 6-8 hours by oral by oral by oral route as route as route as needed. needed. needed. amlodipine amlodipine No amlodipine [facility] 10 mg 10 mg 10 mg [facility] tablet TAKE tablet TAKE tablet ty 1 TABLET BY 1 TABLET BY TAKE 1 [facility] MOUTH ONCE MOUTH ONCE TABLET BY l DAILY DAILY MOUTH ONCE C linics DIRECTED DIRECTED DAILY DIRECTED cetirizine cetirizine No 1 Q1D cetirizine [facility] 10 mg 10 mg 10 mg [facility] tablet Take tablet Take tablet ty 1 tablet 1 tablet Take 1 [facility] ta every day every day tablet l by oral by oral every day Clin ics route. route. by oral route. ferrous ferrous No 1 BID ferrous [facility] sulfate 325 sulfate 325 sulfate [facility] mg (65 mg mg (65 mg 325 mg (65 ty iron) iron) mg iron) [facility] tablet Take tablet Take tablet l 1 tablet 1 tablet Take 1 Clini cs twice a day twice a day tablet by oral by oral twice a route. route. day by oral route. fluticasone fluticasone No fluticason [facility] propionate propionate e [facility] 50 50 propionate ty mcg/actuati mcg/actuati 50 [facility] on nasal on nasal mcg/actuat l spray,suspe spray,suspe ion nasal Clinics nsion [place] nsion [place] spray,susp 1 spray 1 spray ension every day every day [place] 1 by by spray intranasal intranasal every day route. route. by intranasal route. Humulin Humulin No Humulin [facility] 70/30 U-100 70/30 U-100 70/30 [facility] Insulin 50 Insulin 50 U-100 ty units daily units daily Insulin 50 [facility]ospita (if BS is (if BS is units l over 120) over 120) daily (if Clinics BS is over 120) ibuprofen ibuprofen No 1 BID ibuprofen [facility] 800 mg 800 mg 800 mg [facility] tablet Take tablet Take tablet ty 1 tablet 1 tablet Take 1 [facility] twice a day twice a day tablet l by oral by oral twice a Clinic s route as route as day by needed for needed for oral route 30 days. 30 days. as needed for 30 days. lisinopril lisinopril No lisinopril [facility] 20 20 20 [facility] mg-hydrochl mg-hydrochl mg-hydroch ty orothiazide [facility]thiazide [facility] 25 mg 25 mg de 25 mg l tablet TAKE tablet TAKE tablet Clinics 1 TABLET BY 1 TABLET BY TAKE 1 MOUTH ONCE MOUTH ONCE TABLET BY DAILY IN DAILY IN MOUTH ONCE THE MORNING THE MORNING DAILY IN THE MORNING lovastatin lovastatin No 1 Q1D lovastatin [facility] 20 mg 20 mg 20 mg [facility] tablet Take tablet Take tablet ty 1 tablet 1 tablet Take 1 [facility] ta every day every day tablet l by oral by oral every day Clin ics route in route in by oral the the route in evening. evening. the evening. Medrol Medrol No 1dose Medrol [facility] (Jose Antonio) 4 mg (Jose Antonio) 4 mg pk(s) (Jose Antonio) 4 mg [facility] tablets in tablets in tablets in ty a dose pack a dose pack a dose [facility]osp[facility] Take 1 dose Take 1 dose pack Take l pk by oral pk by oral 1 dose pk Clinics route as route as by oral directed. directed. route as directed. metformin metformin No metformin [facility] 1,000 mg 1,000 mg 1,000 mg Com osvaldo tablet TAKE tablet TAKE tablet ty 1 TABLET BY 1 TABLET BY TAKE 1 [facility] MOUTH TWICE MOUTH TWICE TABLET BY l DAILY DAILY MOUTH Clinics BEFORE BEFORE TWICE MEAL(S) MEAL(S) DAILY BEFORE MEAL(S) promethazin promethazin No 5mL Q7H promethazi [facility] e-DM 6.25 e-DM 6.25 ne-DM 6.25 [facility] mg-15 mg/5 mg-15 mg/5 mg-15 mg/5 ty mL oral mL oral mL oral Hospit a syrup Take syrup Take syrup Take l 5 mL every 5 mL every 5 mL every Clinics 6-8 hours 6-8 hours 6-8 hours by oral by oral by oral route as route as route as needed. FOR needed. FOR needed. COUGH COUGH FOR COUGH amlodipine amlodipine No amlodipine [facility] 10 mg 10 mg 10 mg [facility] tablet TAKE tablet TAKE tablet ty 1 TABLET BY 1 TABLET BY TAKE 1 [facility]ita MOUTH ONCE MOUTH ONCE TABLET BY l DAILY DAILY MOUTH ONCE C linics DIRECTED DIRECTED DAILY DIRECTED ceftriaxone ceftriaxone No 1g ceftriaxon [facility] 1 gram 1 gram e 1 gram [facility] solution solution solution ty for for for [facility]osp[facility] injection injection injection l Take 1 g by Take 1 g by Take 1 g Clinics injection injection by route for 1 route for 1 injection day. day. route for 1 day. cetirizine cetirizine No 1 Q1D cetirizine [facility] 10 mg 10 mg 10 mg [facility] tablet Take tablet Take tablet ty 1 tablet 1 tablet Take 1 [facility] ta every day every day tablet l by oral by oral every day Clin ics route. route. by oral route. ferrous ferrous No 1 BID ferrous [facility] sulfate 325 sulfate 325 sulfate [facility] mg (65 mg mg (65 mg 325 mg (65 ty iron) iron) mg iron) [facility]osp[facility] tablet Take tablet Take tablet l 1 tablet 1 tablet Take 1 Clini cs twice a day twice a day tablet by oral by oral twice a route. route. day by oral route. fluticasone fluticasone No fluticason [facility] propionate propionate e Com osvaldo 50 50 propionate ty mcg/actuati mcg/actuati 50 [facility] on nasal on nasal mcg/actuat l spray,suspe spray,suspe ion nasal Clinics nsion [place]ion [place] spray,susp 1 spray 1 spray ension every day every day [place] 1 by by spray intranasal intranasal every day route. route. by intranasal route. Humulin Humulin No Humulin [facility] 70/30 U-100 70/30 U-100 70/30 [facility] Insulin 50 Insulin 50 U-100 ty units daily units daily Insulin 50 [facility]ospita (if BS is (if BS is units l over 120) over 120) daily (if Clinics BS is over 120) ibuprofen ibuprofen No 1 BID ibuprofen [facility] 800 mg 800 mg 800 mg [facility] tablet Take tablet Take tablet ty 1 tablet 1 tablet Take 1 [facility] twice a day twice a day tablet l by oral by oral twice a Clinic s route as route as day by needed for needed for oral route 30 days. 30 days. as needed for 30 days. lidocaine lidocaine No 2mL lidocaine [facility] HCl 10 HCl 10 HCl 10 [facility] mg/mL (1 %) mg/mL (1 %) mg/mL (1 ty injection injection %) [facility] solution solution injection l Take 2 mL Take 2 mL solution C linics by by Take 2 mL injection injection by route. route. injection route. lisinopril lisinopril No lisinopril [facility] 20 20 20 [facility] mg-hydrochl mg-hydrochl mg-hydroch ty orothiazide [facility]thiazide [facility] 25 mg 25 mg de 25 mg l tablet TAKE tablet TAKE tablet Clinics 1 TABLET BY 1 TABLET BY TAKE 1 MOUTH ONCE MOUTH ONCE TABLET BY DAILY IN DAILY IN MOUTH ONCE THE MORNING THE MORNING DAILY IN THE MORNING lovastatin lovastatin No 1 Q1D lovastatin [facility] 20 mg 20 mg 20 mg [facility] tablet Take tablet Take tablet ty 1 tablet 1 tablet Take 1 [facility] ta every day every day tablet l by oral by oral every day Clin ics route in route in by oral the the route in evening. evening. the evening. Medrol Medrol No 1dose Medrol [facility] (Jose Antonio) 4 mg (Jose Antonio) 4 mg pk(s) ([facility]) 4 mg [facility] tablets in tablets in tablets in ty a dose pack a dose pack a dose [facility]osp[facility] Take 1 dose Take 1 dose pack Take l pk by oral pk by oral 1 dose pk Clinics route as route as by oral directed. directed. route as directed. metformin metformin No metformin [facility] 1,000 mg 1,000 mg 1,000 mg Com osvaldo tablet TAKE tablet TAKE tablet ty 1 TABLET BY 1 TABLET BY TAKE 1 [facility] MOUTH TWICE MOUTH TWICE TABLET BY l DAILY DAILY MOUTH Clinics BEFORE BEFORE TWICE MEAL(S) MEAL(S) DAILY BEFORE MEAL(S) promethazin promethazin No 5mL Q7H promethazi [facility] e-DM 6.25 e-DM 6.25 ne-DM 6.25 [facility] mg-15 mg/5 mg-15 mg/5 mg-15 mg/5 ty mL oral mL oral mL oral Hospit a syrup Take syrup Take syrup Take l 5 mL every 5 mL every 5 mL every Clinics 6-8 hours 6-8 hours 6-8 hours by oral by oral by oral route as route as route as needed. FOR needed. FOR needed. COUGH COUGH FOR COUGH amlodipine amlodipine No amlodipine [facility] 10 mg 10 mg 10 mg [facility] tablet TAKE tablet TAKE tablet ty 1 TABLET BY 1 TABLET BY TAKE 1 [facility]osp[facility] MOUTH ONCE MOUTH ONCE TABLET BY l DAILY DAILY MOUTH ONCE C linics DIRECTED DIRECTED DAILY DIRECTED ceftriaxone ceftriaxone No 1g ceftriaxon [facility] 1 gram 1 gram e 1 gram [facility] solution solution solution ty for for for Hospita injection injection injection l Take 1 g by Take 1 g by Take 1 g [facility] injection injection by route for 1 route for 1 injection day. day. route for 1 day. cetirizine cetirizine No 1 Q1D cetirizine [facility] 10 mg 10 mg 10 mg [facility] tablet Take tablet Take tablet ty 1 tablet 1 tablet Take 1 [facility] ta every day every day tablet l by oral by oral every day Clin ics route. route. by oral route. ferrous ferrous No 1 BID ferrous [facility] sulfate 325 sulfate 325 sulfate [facility] mg (65 mg mg (65 mg 325 mg (65 ty iron) iron) mg iron) [facility]osp[facility] tablet Take tablet Take tablet l 1 tablet 1 tablet Take 1 Clini cs twice a day twice a day tablet by oral by oral twice a route. route. day by oral route. fluticasone fluticasone No fluticason [facility] propionate propionate e Com osvaldo 50 50 propionate ty mcg/actuati mcg/actuati 50 [facility] on nasal on nasal mcg/actuat l spray,suspe spray,suspe ion nasal Clinics nsion [place] nsion [place] spray,susp 1 spray 1 spray ension every day every day [place] 1 by by spray intranasal intranasal every day route. route. by intranasal route. Humulin Humulin No Humulin [facility] 70/30 U-100 70/30 U-100 70/30 [facility] Insulin 50 Insulin 50 U-100 ty units daily units daily Insulin 50 [facility]ospita (if BS is (if BS is units l over 120) over 120) daily (if Clinics BS is over 120) ibuprofen ibuprofen No 1 BID ibuprofen [facility] 800 mg 800 mg 800 mg [facility] tablet Take tablet Take tablet ty 1 tablet 1 tablet Take 1 [facility] ta twice a day twice a day tablet l by oral by oral twice a Clinic s route as route as day by needed for needed for oral route 30 days. 30 days. as needed for 30 days. lidocaine lidocaine No 2mL lidocaine [facility] HCl 10 HCl 10 HCl 10 [facility] mg/mL (1 %) mg/mL (1 %) mg/mL (1 ty injection injection %) Hospi ta solution solution injection l Take 2 mL Take 2 mL solution C linics by by Take 2 mL injection injection by route. route. injection route. lisinopril lisinopril No lisinopril [facility] 20 20 20 [facility] mg-hydrochl mg-hydrochl mg-hydroch ty orothiazide [facility]thiazide [facility] 25 mg 25 mg de 25 mg l tablet TAKE tablet TAKE tablet Clinics 1 TABLET BY 1 TABLET BY TAKE 1 MOUTH ONCE MOUTH ONCE TABLET BY DAILY IN DAILY IN MOUTH ONCE THE MORNING THE MORNING DAILY IN THE MORNING lovastatin lovastatin No 1 Q1D lovastatin [facility] 20 mg 20 mg 20 mg [facility] tablet Take tablet Take tablet ty 1 tablet 1 tablet Take 1 [facility] ta every day every day tablet l by oral by oral every day Clin ics route in route in by oral the the route in evening. evening. the evening. Medrol Medrol No 1dose Medrol [facility] ([facility] Antonio) 4 mg (Jose Antonio) 4 mg pk(s) ([facility] Antonio) 4 mg [facility] tablets in tablets in tablets in ty a dose pack a dose pack a dose [facility]osp[facility] Take 1 dose Take 1 dose pack Take l pk by oral pk by oral 1 dose pk Clinics route as route as by oral directed. directed. route as directed. metformin metformin No metformin [facility] 1,000 mg 1,000 mg 1,000 mg Com osvaldo tablet TAKE tablet TAKE tablet ty 1 TABLET BY 1 TABLET BY TAKE 1 [facility] MOUTH TWICE MOUTH TWICE TABLET BY l DAILY DAILY MOUTH Clinics BEFORE BEFORE TWICE MEAL(S) MEAL(S) DAILY BEFORE MEAL(S) promethazin promethazin No 5mL Q7H promethazi [facility] e-DM 6.25 e-DM 6.25 ne-DM 6.25 [facility] mg-15 mg/5 mg-15 mg/5 mg-15 mg/5 ty mL oral mL oral mL oral Hospit a syrup Take syrup Take syrup Take l 5 mL every 5 mL every 5 mL every Clinics 6-8 hours 6-8 hours 6-8 hours by oral by oral by oral route as route as route as needed. FOR needed. FOR needed. COUGH COUGH FOR COUGH amlodipine amlodipine No amlodipine [facility] 10 mg 10 mg 10 mg [facility] tablet TAKE tablet TAKE tablet ty 1 TABLET BY 1 TABLET BY TAKE 1 [facility] MOUTH ONCE MOUTH ONCE TABLET BY l DAILY DAILY MOUTH ONCE C linics DIRECTED DIRECTED DAILY DIRECTED azelastine azelastine No azelastine [facility] 205.5 mcg 205.5 mcg 205.5 mcg [facility] (0.15 %) (0.15 %) (0.15 %) ty nasal spray nasal spray nasal [facility]osp[facility] spray l Clinics cefdinir cefdinir No 1capsul Q12H cefdinir [facility] 300 mg 300 mg e(s) 300 mg [facility] capsule capsule capsule ty Take 1 Take 1 Take 1 [facility]ospita capsule capsule capsule l every 12 every 12 every 12 Cli nics hours by hours by hours by oral route oral route oral route for 10 for 10 for 10 days. days. days. cetirizine cetirizine No 1 Q1D cetirizine [facility] 10 mg 10 mg 10 mg [facility] tablet Take tablet Take tablet ty 1 tablet 1 tablet Take 1 [facility] every day every day tablet l by oral by oral every day Clin ics route. route. by oral route. FeroSul 325 FeroSul 325 No FeroSul [facility] mg (65 mg mg (65 mg 325 mg (65 [facility] iron) iron) mg iron) ty tablet TAKE tablet TAKE tablet [facility]osp[facility] 1 TABLET BY 1 TABLET BY TAKE 1 l MOUTH TWICE MOUTH TWICE TABLET BY Clinics DAILY DAILY MOUTH TWICE DAILY fluticasone fluticasone No fluticason [facility] propionate propionate e Com osvaldo 50 50 propionate ty mcg/actuati mcg/actuati 50 [facility] on nasal on nasal mcg/actuat l spray,suspe spray,suspe ion nasal Clinics nsion [place] nsion [place] spray,susp 1 spray 1 spray ension every day every day [place] 1 by by spray intranasal intranasal every day route. route. by intranasal route. Humulin Humulin No Humulin [facility] 70/30 U-100 70/30 U-100 70/30 [facility] Insulin 50 Insulin 50 U-100 ty units daily units daily Insulin 50 [facility]ospita (if BS is (if BS is units l over 120) over 120) daily (if Clinics BS is over 120) ibuprofen ibuprofen No ibuprofen [facility] 800 mg 800 mg 800 mg [facility] tablet Take tablet Take tablet ty 1 tablet 1 tablet Take 1 [facility] ta twice a day twice a day tablet l by oral by oral twice a Clinic s route as route as day by needed for needed for oral route 30 days. 30 days. as needed for 30 days. lisinopril lisinopril No lisinopril [facility] 20 20 20 [facility] mg-hydrochl mg-hydrochl mg-hydroch ty orothiazide [facility]thiazide [facility] 25 mg 25 mg de 25 mg l tablet TAKE tablet TAKE tablet Clinics 1 TABLET BY 1 TABLET BY TAKE 1 MOUTH ONCE MOUTH ONCE TABLET BY DAILY IN DAILY IN MOUTH ONCE THE MORNING THE MORNING DAILY IN THE MORNING lovastatin lovastatin No 1 Q1D lovastatin [facility] 20 mg 20 mg 20 mg [facility] tablet Take tablet Take tablet ty 1 tablet 1 tablet Take 1 [facility] ta every day every day tablet l by oral by oral every day Clin ics route in route in by oral the the route in evening. evening. the evening. metformin metformin No metformin [facility] 1,000 mg 1,000 mg 1,000 mg Com osvaldo tablet TAKE tablet TAKE tablet ty 1 TABLET BY 1 TABLET BY TAKE 1 [facility]ospita MOUTH TWICE MOUTH TWICE TABLET BY l DAILY DAILY MOUTH Clinics BEFORE BEFORE TWICE MEAL(S) MEAL(S) DAILY BEFORE MEAL(S) promethazin promethazin No 5mL Q7H promethazi [facility] e-DM 6.25 e-DM 6.25 ne-DM 6.25 [facility] mg-15 mg/5 mg-15 mg/5 mg-15 mg/5 ty mL oral mL oral mL oral Hospit a syrup Take syrup Take syrup Take l 5 mL every 5 mL every 5 mL every Clinics 6-8 hours 6-8 hours 6-8 hours by oral by oral by oral route as route as route as needed. FOR needed. FOR needed. COUGH COUGH FOR COUGH amlodipine amlodipine No amlodipine [facility] 10 mg 10 mg 10 mg [facility] tablet TAKE tablet TAKE tablet ty 1 TABLET BY 1 TABLET BY TAKE 1 [facility]ita MOUTH ONCE MOUTH ONCE TABLET BY l DAILY DAILY MOUTH ONCE C [facility] DIRECTED DIRECTED DAILY FOR 90 DAYS FOR 90 DAYS DIRECTED FOR 90 DAYS amlodipine amlodipine No amlodipine [facility] 10 mg 10 mg 10 mg [facility] tablet TAKE tablet TAKE tablet ty 1 TABLET BY 1 TABLET BY TAKE 1 [facility]ospita MOUTH ONCE MOUTH ONCE TABLET BY l DAILY DAILY MOUTH ONCE C [facility] DIRECTED DIRECTED DAILY DIRECTED azelastine azelastine No azelastine [facility] 205.5 mcg 205.5 mcg 205.5 mcg [facility] (0.15 %) (0.15 %) (0.15 %) ty nasal spray nasal spray nasal Hospita spray [facility] azithromyci azithromyci No 1 Q1D azithromyc [facility] n 500 mg n 500 mg in 500 mg [facility] tablet Take tablet Take tablet ty 1 tablet 1 tablet Take 1 Hospi ta every day every day tablet l by oral by oral every day Clin ics route for 5 route for 5 by oral days. days. route for 5 days. cetirizine cetirizine No 1 Q1D cetirizine [facility] 10 mg 10 mg 10 mg [facility] tablet Take tablet Take tablet ty 1 tablet 1 tablet Take 1 [facility]pi ta every day every day tablet l by oral by oral every day Clin ics route. route. by oral route. FeroSul 325 FeroSul 325 No FeroSul [facility] mg (65 mg mg (65 mg 325 mg (65 [facility] iron) iron) mg iron) ty tablet TAKE tablet TAKE tablet [facility]ospita 1 TABLET BY 1 TABLET BY TAKE 1 l MOUTH TWICE MOUTH TWICE TABLET BY Clinics DAILY DAILY MOUTH TWICE DAILY fluticasone fluticasone No fluticason [facility] propionate propionate e Com osvaldo 50 50 propionate ty mcg/actuati mcg/actuati 50 [facility]spita on nasal on nasal mcg/actuat l spray,suspe spray,suspe ion nasal Clinics nsion [place] nsion [place] spray,susp 1 spray 1 spray ension every day every day [place] 1 by by spray intranasal intranasal every day route. route. by intranasal route. Humulin Humulin No Humulin [facility] 70/30 U-100 70/30 U-100 70/30 [facility] Insulin 50 Insulin 50 U-100 ty units daily units daily Insulin 50 [facility]ospita (if BS is (if BS is units l over 120) over 120) daily (if Clinics BS is over 120) ibuprofen ibuprofen No ibuprofen [facility] 800 mg 800 mg 800 mg [facility] tablet Take tablet Take tablet ty 1 tablet 1 tablet Take 1 Hos[facility] ta twice a day twice a day tablet l by oral by oral twice a Clinic s route as route as day by needed for needed for oral route 30 days. 30 days. as needed for 30 days. ceftriaxone ceftriaxone No 1g ceftriaxon [facility] 1 gram 1 gram e 1 gram [facility] solution solution solution ty for for for [facility]ospita injection injection injection l Take 1 g by Take 1 g by Take 1 g Clinics injection injection by route as route as injection directed directed route as for 1 day. for 1 day. directed for 1 day. Kenalog 40 Kenalog 40 No 80mg Kenalog 40 [facility] mg/mL mg/mL mg/mL [facility] suspension suspension suspension ty for for for Hospita injection injection injection l Take 80 mg Take 80 mg Take 80 mg Clinics by by by injection injection injection route. route. route. levothyroxi levothyroxi No levothyrox [facility] ne 25 mcg ne 25 mcg ine 25 mcg [facility] tablet TAKE tablet TAKE tablet ty 1 TABLET BY 1 TABLET BY TAKE 1 [facility]ospita MOUTH ONCE MOUTH ONCE TABLET BY l DAILY IN DAILY IN MOUTH ONCE C linics THE MORNING THE MORNING DAILY IN ON AN EMPTY ON AN EMPTY THE STOMACH STOMACH MORNING ON WITH A WITH A AN EMPTY GLASS OF GLASS OF STOMACH WATER ONE WATER ONE WITH A HOUR BEFORE HOUR BEFORE GLASS OF BREAKFAST BREAKFAST WATER ONE HOUR BEFORE BREAKFAST lisinopril lisinopril No lisinopril [facility] 20 20 20 [facility] mg-hydrochl mg-hydrochl mg-hydroch ty orothiazide orothiazide [facility] 25 mg 25 mg de 25 mg l tablet TAKE tablet TAKE tablet Clinics 1 TABLET BY 1 TABLET BY TAKE 1 MOUTH ONCE MOUTH ONCE TABLET BY DAILY IN DAILY IN MOUTH ONCE THE MORNING THE MORNING DAILY IN THE MORNING lovastatin lovastatin No 1 Q1D lovastatin [facility] 20 mg 20 mg 20 mg [facility] tablet Take tablet Take tablet ty 1 tablet 1 tablet Take 1 [facility] ta every day every day tablet l by oral by oral every day Clin ics route in route in by oral the the route in evening. evening. the evening. metformin metformin No metformin [facility] 1,000 mg 1,000 mg 1,000 mg Com osvaldo tablet TAKE tablet TAKE tablet ty 1 TABLET BY 1 TABLET BY TAKE 1 [facility]ospita MOUTH TWICE MOUTH TWICE TABLET BY l DAILY DAILY MOUTH Clinics BEFORE BEFORE TWICE MEAL(S) MEAL(S) DAILY BEFORE MEAL(S) cholecalcif cholecalcif No cholecalci [facility] kourtney kourntey ferol [facility] (vitamin (vitamin (vitamin ty D3) 1,250 D3) 1,250 D3) 1,250 Hospita mcg (50,000 mcg (50,000 mcg l unit) unit) (50,000 Clinics capsule capsule unit) TAKE 1 TAKE 1 capsule CAPSULE BY CAPSULE BY TAKE 1 MOUTH ONCE MOUTH ONCE CAPSULE BY A WEEK A WEEK MOUTH ONCE DIRECTED DIRECTED A WEEK DIRECTED Humulin R Humulin R No 25unit( Q1D Humulin R [facility] Regular Regular s) Regular Commun i U-100 U-100 U-100 ty Insulin 100 Insulin 100 Insulin Hospita unit/mL unit/mL 100 l injection injection unit/mL Cl inics solution solution injection Take 25 Take 25 solution units every units every Take 25 day by day by units injection injection every day route at route at by bedtime for bedtime for injection 30 days. 30 days. route at bedtime for 30 days. amlodipine amlodipine No amlodipine [facility] 10 mg 10 mg 10 mg [facility] tablet TAKE tablet TAKE tablet ty 1 TABLET BY 1 TABLET BY TAKE 1 [facility]ita MOUTH ONCE MOUTH ONCE TABLET BY l DAILY DAILY MOUTH ONCE C linics DIRECTED DIRECTED DAILY DIRECTED azelastine azelastine No azelastine [facility] 205.5 mcg 205.5 mcg 205.5 mcg [facility] (0.15 %) (0.15 %) (0.15 %) ty nasal spray nasal spray nasal [facility]ita spray l Clinics ceftriaxone ceftriaxone No 1g ceftriaxon [facility] 1 gram 1 gram e 1 gram [facility] solution solution solution ty for for for [facility]ospita injection injection injection l Take 1 g by Take 1 g by Take 1 g Clinics injection injection by route. route. injection route. cetirizine cetirizine No 1 Q1D cetirizine [facility] 10 mg 10 mg 10 mg [facility] tablet Take tablet Take tablet ty 1 tablet 1 tablet Take 1 Hospi ta every day every day tablet l by oral by oral every day Clin ics route. route. by oral route. ibuprofen ibuprofen No ibuprofen [facility] 800 mg 800 mg 800 mg [facility] tablet TAKE tablet TAKE tablet ty 1 TABLET BY 1 TABLET BY TAKE 1 [facility]ita MOUTH THREE MOUTH THREE TABLET BY l TIMES DAILY TIMES DAILY MOUTH Clinics THREE TIMES DAILY clopidogrel clopidogrel No clopidogre [facility] 75 mg 75 mg l 75 mg [facility] tablet TAKE tablet TAKE tablet ty 1 TABLET BY 1 TABLET BY TAKE 1 [facility]ita MOUTH ONCE MOUTH ONCE TABLET BY l DAILY DAILY MOUTH ONCE Clinics DAILY dexamethaso dexamethaso No 10mg dexamethas [facility] ne sodium ne sodium one sodium [facility] phosphate phosphate phosphate ty 10 mg/mL 10 mg/mL 10 mg/mL [facility] mill[facility] injection injection injection l solution solution solution Cli nics Take 10 mg Take 10 mg Take 10 mg by by by injection injection injection route. route. route. ferrous ferrous No 1 BID ferrous [facility] sulfate 325 sulfate 325 sulfate [facility] mg (65 mg mg (65 mg 325 mg (65 ty iron) iron) mg iron) [facility]ospita tablet Take tablet Take tablet l 1 tablet 1 tablet Take 1 Clini cs twice a day twice a day tablet by oral by oral twice a route for route for day by 90 days. 90 days. oral route for 90 days. fluticasone fluticasone No fluticason [facility] propionate propionate e Com osvaldo 50 50 propionate ty mcg/actuati mcg/actuati 50 [facility] on nasal on nasal mcg/actuat l spray,suspe spray,suspe ion nasal Clinics nsion [place] nsion [place] spray,susp 1 spray 1 spray ension every day every day [place] 1 by by spray intranasal intranasal every day route. route. by intranasal route. Humulin Humulin No Humulin [facility] 70/30 U-100 70/30 U-100 70/30 [facility] Insulin 50 Insulin 50 U-100 ty units daily units daily Insulin 50 [facility]ospita (if BS is (if BS is units l over 120) over 120) daily (if Clinics BS is over 120) ibuprofen ibuprofen No 1 BID ibuprofen [facility] 800 mg 800 mg 800 mg [facility] tablet Take tablet Take tablet ty 1 tablet 1 tablet Take 1 Hos[facility] ta twice a day twice a day tablet l by oral by oral twice a Clinic s route as route as day by needed. needed. oral route as needed. lidocaine lidocaine No 2.1mL lidocaine [facility] (PF) 10 (PF) 10 (PF) 10 [facility] i mg/mL (1 %) mg/mL (1 %) mg/mL (1 ty injection injection %) Hospi ta solution solution injection l Take 2.1 mL Take 2.1 mL solution Clinics by by Take 2.1 injection injection mL by route. route. injection route. lisinopril lisinopril No lisinopril [facility] 20 20 20 [facility] mg-hydrochl mg-hydrochl mg-hydroch ty orothiazide orothiazide [facility] 25 mg 25 mg de 25 mg l tablet TAKE tablet TAKE tablet Clinics 1 TABLET BY 1 TABLET BY TAKE 1 MOUTH ONCE MOUTH ONCE TABLET BY DAILY IN DAILY IN MOUTH ONCE THE MORNING THE MORNING DAILY IN THE MORNING lovastatin lovastatin No 1 Q1D lovastatin [facility] 20 mg 20 mg 20 mg [facility] tablet Take tablet Take tablet ty 1 tablet 1 tablet Take 1 Hospi ta every day every day tablet l by oral by oral every day Clin ics route in route in by oral the the route in evening. evening. the evening. metformin metformin No metformin [facility] 1,000 mg 1,000 mg 1,000 mg Com osvaldo tablet TAKE tablet TAKE tablet ty 1 TABLET BY 1 TABLET BY TAKE 1 [facility]ospita MOUTH TWICE MOUTH TWICE TABLET BY l DAILY DAILY MOUTH Clinics BEFORE BEFORE TWICE MEAL(S) MEAL(S) DAILY BEFORE MEAL(S) insulin insulin No 50unit( BID insulin Swe aram aspar aspar s) aspar [facility] prt-insulin prt-insulin prt-insuli ty aspart 100 aspart 100 n aspart Hospita unit/mL unit/mL 100 l (70-30) (70-30) unit/mL Clinic s subcutaneou subcutaneou (70-30) s soln s soln subcutaneo Inject 50 Inject 50 us soln units twice units twice Inject 50 a day by a day by units subcutaneou subcutaneou twice a s route as s route as day by directed directed subcutaneo for 30 for 30 us route days. days. as directed for 30 days. promethazin promethazin No 5mL Q7H promethazi [facility] e-DM 6.25 e-DM 6.25 ne-DM 6.25 [facility] mg-15 mg/5 mg-15 mg/5 mg-15 mg/5 ty mL oral mL oral mL oral Hospit a syrup Take syrup Take syrup Take l 5 mL every 5 mL every 5 mL every Clinics 6-8 hours 6-8 hours 6-8 hours by oral by oral by oral route as route as route as needed. FOR needed. FOR needed. COUGH COUGH FOR COUGH amlodipine amlodipine No amlodipine [facility] 10 mg 10 mg 10 mg [facility] tablet TAKE tablet TAKE tablet ty 1 TABLET BY 1 TABLET BY TAKE 1 [facility]ospita MOUTH ONCE MOUTH ONCE TABLET BY l DAILY DAILY MOUTH ONCE C linics DIRECTED DIRECTED DAILY DIRECTED lidocaine lidocaine No 2.1mL lidocaine [facility] (PF) 10 (PF) 10 (PF) 10 [facility] i mg/mL (1 %) mg/mL (1 %) mg/mL (1 ty injection injection %) Hospi ta solution solution injection l Take 2.1 mL Take 2.1 mL solution Clinics by by Take 2.1 injection injection mL by route as route as injection directed directed route as for 1 day. for 1 day. directed for 1 day. azelastine azelastine No azelastine [facility] 205.5 mcg 205.5 mcg 205.5 mcg [facility] (0.15 %) (0.15 %) (0.15 %) ty nasal spray nasal spray nasal [facility]ospita spray l Clinics cefdinir cefdinir No 1capsul Q12H cefdinir [facility] 300 mg 300 mg e(s) 300 mg [facility] capsule capsule capsule ty Take 1 Take 1 Take 1 [facility]ospita capsule capsule capsule l every 12 every 12 every 12 Cli nics hours by hours by hours by oral route oral route oral route for 10 for 10 for 10 days. days. days. ceftriaxone ceftriaxone No 1g ceftriaxon [facility] 1 gram 1 gram e 1 gram [facility] solution solution solution ty for for for [facility]ospita injection injection injection l Take 1 g by Take 1 g by Take 1 g Clinics injection injection by route. route. injection route. cetirizine cetirizine No 1 Q1D cetirizine [facility] 10 mg 10 mg 10 mg [facility] tablet Take tablet Take tablet ty 1 tablet 1 tablet Take 1 Hospi ta every day every day tablet l by oral by oral every day Clin ics route. route. by oral route. clopidogrel clopidogrel No clopidogre [facility] 75 mg 75 mg l 75 mg [facility] tablet TAKE tablet TAKE tablet ty 1 TABLET BY 1 TABLET BY TAKE 1 [facility]ospita MOUTH ONCE MOUTH ONCE TABLET BY l DAILY DAILY MOUTH ONCE Clinics DAILY ferrous ferrous No 1 BID ferrous [facility] sulfate 325 sulfate 325 sulfate [facility] mg (65 mg mg (65 mg 325 mg (65 ty iron) iron) mg iron) [facility]ospita tablet Take tablet Take tablet l 1 tablet 1 tablet Take 1 Clini cs twice a day twice a day tablet by oral by oral twice a route for route for day by 90 days. 90 days. oral route for 90 days. fluticasone fluticasone No fluticason [facility] propionate propionate e Com osvaldo 50 50 propionate ty mcg/actuati mcg/actuati 50 [facility] on nasal on nasal mcg/actuat l spray,suspe spray,suspe ion nasal Clinics nsion [place] nsion [place] spray,susp 1 spray 1 spray ension every day every day [place] 1 by by spray intranasal intranasal every day route. route. by intranasal route. Humulin Humulin No Humulin [facility] 70/30 U-100 70/30 U-100 70/30 [facility] Insulin 50 Insulin 50 U-100 ty units daily units daily Insulin 50 [facility]ospita (if BS is (if BS is units l over 120) over 120) daily (if Clinics BS is over 120) ibuprofen ibuprofen No 1 BID ibuprofen [facility] 800 mg 800 mg 800 mg [facility] tablet Take tablet Take tablet ty 1 tablet 1 tablet Take 1 Hospi ta twice a day twice a day tablet l by oral by oral twice a Clinic s route as route as day by needed. needed. oral route as needed. lidocaine lidocaine No 2.1mL lidocaine [facility] (PF) 10 (PF) 10 (PF) 10 [facility] i mg/mL (1 %) mg/mL (1 %) mg/mL (1 ty injection injection %) Hospi ta solution solution injection l Take 2.1 mL Take 2.1 mL solution Clinics by by Take 2.1 injection injection mL by route. route. injection route. lisinopril lisinopril No lisinopril [facility] 20 20 20 [facility] mg-hydrochl mg-hydrochl mg-hydroch ty orothiazide orothiazide lorothiazi [facility] 25 mg 25 mg de 25 mg l tablet TAKE tablet TAKE tablet Clinics 1 TABLET BY 1 TABLET BY TAKE 1 MOUTH ONCE MOUTH ONCE TABLET BY DAILY IN DAILY IN MOUTH ONCE THE MORNING THE MORNING DAILY IN THE MORNING lisinopril lisinopril No lisinopril [facility] 20 20 20 [facility] mg-hydrochl mg-hydrochl mg-hydroch ty orothiazide orothiazide [facility]orothiazi [facility] 25 mg 25 mg de 25 mg l tablet TAKE tablet TAKE tablet Clinics 1 TABLET BY 1 TABLET BY TAKE 1 MOUTH ONCE MOUTH ONCE TABLET BY DAILY IN DAILY IN MOUTH ONCE THE MORNING THE MORNING DAILY IN THE MORNING lovastatin lovastatin No 1 Q1D lovastatin [facility] 20 mg 20 mg 20 mg [facility] tablet Take tablet Take tablet ty 1 tablet 1 tablet Take 1 Hospi ta every day every day tablet l by oral by oral every day Clin ics route in route in by oral the the route in evening. evening. the evening. metformin metformin No metformin [facility] 1,000 mg 1,000 mg 1,000 mg Com osvaldo tablet TAKE tablet TAKE tablet ty 1 TABLET BY 1 TABLET BY TAKE 1 [facility]ospita MOUTH TWICE MOUTH TWICE TABLET BY l DAILY DAILY MOUTH Clinics BEFORE BEFORE TWICE MEAL(S) MEAL(S) DAILY BEFORE MEAL(S) promethazin promethazin No 5mL Q7H promethazi [facility] e-DM 6.25 e-DM 6.25 ne-DM 6.25 [facility] mg-15 mg/5 mg-15 mg/5 mg-15 mg/5 ty mL oral mL oral mL oral Hospit a syrup Take syrup Take syrup Take l 5 mL every 5 mL every 5 mL every Clinics 6-8 hours 6-8 hours 6-8 hours by oral by oral by oral route as route as route as needed. FOR needed. FOR needed. COUGH COUGH FOR COUGH lovastatin lovastatin No lovastatin [facility] 20 mg 20 mg 20 mg [facility] tablet TAKE tablet TAKE tablet ty 1 TABLET BY 1 TABLET BY TAKE 1 [facility] MOUTH ONCE MOUTH ONCE TABLET BY l DAILY AT DAILY AT MOUTH ONCE C linics BEDTIME FOR BEDTIME FOR DAILY AT 90 DAYS 90 DAYS BEDTIME FOR 90 DAYS metformin metformin No metformin [facility] 1,000 mg 1,000 mg 1,000 mg Com osvaldo tablet TAKE tablet TAKE tablet ty 1 TABLET BY 1 TABLET BY TAKE 1 [facility]osp[facility] MOUTH TWICE MOUTH TWICE TABLET BY l DAILY DAILY MOUTH Clinics BEFORE BEFORE TWICE MEAL(S) MEAL(S) DAILY BEFORE MEAL(S) acetazolami acetazolami No acetazolam [facility] de ER 500 de ER 500 [place] ER 500 [facility] mg mg mg ty capsule,ext capsule,ext capsule,ex [facility]ospita ended ended tended l release release release Clinic s mometasone mometasone No 2spray( Q1D mometasone [facility] 50 50 s) 50 [facility] mcg/actuati mcg/actuati mcg/actuat ty on nasal on nasal ion nasal [facility] spray [place] spray [place] spray l 2 sprays 2 sprays [place] 2 Clin ics every day every day sprays by by every day intranasal intranasal by route as route as intranasal directed directed route as for 14 for 14 directed days. days. for 14 days. amlodipine amlodipine No amlodipine [facility] 10 mg 10 mg 10 mg [facility] tablet TAKE tablet TAKE tablet ty 1 TABLET BY 1 TABLET BY TAKE 1 [facility] MOUTH ONCE MOUTH ONCE TABLET BY l DAILY DAILY MOUTH ONCE C linics DIRECTED DIRECTED DAILY DIRECTED amoxicillin amoxicillin No 1 BID amoxicilli [facility] [id number] n 875 [facility] mg-potassiu mg-potassiu mg-potassi ty m m um [facility] clavulanate clavulanate clavulanat l 125 mg 125 mg e 125 mg Clinics tablet Take tablet Take tablet 1 tablet 1 tablet Take 1 twice a day twice a day tablet by oral by oral twice a route for 7 route for 7 day by days. days. oral route for 7 days. azelastine azelastine No azelastine [facility] 205.5 mcg 205.5 mcg 205.5 mcg [facility] (0.15 %) (0.15 %) (0.15 %) ty nasal spray nasal spray nasal [facility]osp[facility] spray l Clinics brimonidine brimonidine No brimonidin [facility] 0.2 % eye 0.2 % eye e 0.2 % [facility] drops drops eye drops ty INSTILL 1 INSTILL 1 INSTILL 1 [facility]ospita DROP INTO DROP INTO DROP INTO l RIGHT EYE RIGHT EYE RIGHT EYE Clinics TWICE DAILY TWICE DAILY TWICE DAILY cetirizine cetirizine No cetirizine K[facility] 10 mg 10 mg 10 mg [facility] tablet TAKE tablet TAKE tablet ty 1 TABLET BY 1 TABLET BY TAKE 1 [facility] MOUTH ONCE MOUTH ONCE TABLET BY l DAILY DAILY MOUTH ONCE Clinics DAILY clopidogrel clopidogrel No clopidogre [facility] 75 mg 75 mg l 75 mg [facility] tablet TAKE tablet TAKE tablet ty 1 TABLET BY 1 TABLET BY TAKE 1 [facility] MOUTH ONCE MOUTH ONCE TABLET BY l DAILY DAILY MOUTH ONCE Clinics DAILY doxycycline doxycycline No doxycyclin [facility] hyclate 100 hyclate 100 e hyclate [facility] mg capsule mg capsule 100 mg t y capsule [facility]osp[facility] l Clinics ferrous ferrous No 1 BID ferrous [facility] sulfate 325 sulfate 325 sulfate [facility] mg (65 mg mg (65 mg 325 mg (65 ty iron) iron) mg iron) [facility]osp[facility] tablet Take tablet Take tablet l 1 tablet 1 tablet Take 1 Clini cs twice a day twice a day tablet by oral by oral twice a route for route for day by 90 days. 90 days. oral route for 90 days. fluticasone fluticasone No fluticason [facility] propionate propionate e Com osvaldo 50 50 propionate ty mcg/actuati mcg/actuati 50 [facility] on nasal on nasal mcg/actuat l spray,suspe spray,suspe ion nasal Clinics nsion [place] nsion [place] spray,susp 1 spray 1 spray ension every day every day [place] 1 by by spray intranasal intranasal every day route. route. by intranasal route. gentamicin gentamicin No gentamicin [facility] 0.3 % eye 0.3 % eye 0.3 % eye [facility] drops PLACE drops PLACE drops ty 2 DROPS IN [address] 2 [facility] AFFECTED AFFECTED DROPS IN l EYE(S) FOUR EYE(S) FOUR AFFECTED Clinics TIMES A DAY TIMES A DAY EYE(S) FOR 7 DAYS FOR 7 DAYS FOUR TIMES A DAY FOR 7 DAYS montelukast montelukast No 1 Q1D montelukas [facility] 10 mg 10 mg t 10 mg [facility] tablet Take tablet Take tablet ty 1 tablet 1 tablet Take 1 Hospi ta every day every day tablet l by oral by oral every day Clin ics route as route as by oral directed directed route as for 30 for 30 directed days. days. for 30 days. Humulin Humulin No Humulin [facility] 70/30 U-100 70/30 U-100 70/30 [facility] Insulin 50 Insulin 50 U-100 ty units daily units daily Insulin 50 [facility]ospita (if BS is (if BS is units l over 120) over 120) daily (if Clinics BS is over 120) ibuprofen ibuprofen No ibuprofen [facility] 800 mg 800 mg 800 mg [facility] tablet TAKE tablet TAKE tablet ty 1 TABLET BY 1 TABLET BY TAKE 1 [facility] MOUTH TWICE MOUTH TWICE TABLET BY l DAILY DAILY MOUTH Clinic s NEEDED NEEDED TWICE DAILY NEEDED lisinopril lisinopril No lisinopril [facility] 20 20 20 [facility] mg-hydrochl mg-hydrochl mg-hydroch ty orothiazide orothiazide [facility]zi [facility] 25 mg 25 mg de 25 mg l tablet TAKE tablet TAKE tablet Clinics 1 TABLET BY 1 TABLET BY TAKE 1 MOUTH ONCE MOUTH ONCE TABLET BY DAILY IN DAILY IN MOUTH ONCE THE MORNING THE MORNING DAILY IN THE MORNING lovastatin lovastatin No lovastatin [facility] 10 mg 10 mg 10 mg [facility] tablet tablet tablet ty [facility]osp[facility] l Clinics lovastatin lovastatin No 1 Q1D lovastatin K[facility] 20 mg 20 mg 20 mg [facility] tablet Take tablet Take tablet ty 1 tablet 1 tablet Take 1 Hospi ta every day every day tablet l by oral by oral every day Clin ics route in route in by oral the the route in evening. evening. the evening. metformin metformin No metformin [facility] 1,000 mg 1,000 mg 1,000 mg Com osvaldo tablet TAKE tablet TAKE tablet ty 1 TABLET BY 1 TABLET BY TAKE 1 [facility] MOUTH TWICE MOUTH TWICE TABLET BY l DAILY DAILY MOUTH Clinics BEFORE BEFORE TWICE MEAL(S) MEAL(S) DAILY BEFORE MEAL(S) prednisolon prednisolon No prednisolo [facility] e acetate 1 e acetate 1 ne acetate [facility] % eye % eye 1 % eye ty drops,suspe drops,suspe drops,susp Hospita nsion nsion ension l INSTILL 1 INSTILL 1 INSTILL 1 Clinics DROP INTO DROP INTO DROP INTO RIGHT EYE RIGHT EYE RIGHT EYE THREE TIMES THREE TIMES THREE DAILY DAILY TIMES DAILY promethazin promethazin No 5mL Q7H promethazi [facility] e-DM 6.25 e-DM 6.25 ne-DM 6.25 [facility] mg-15 mg/5 mg-15 mg/5 mg-15 mg/5 ty mL oral mL oral mL oral Hospit a syrup Take syrup Take syrup Take l 5 mL every 5 mL every 5 mL every Clinics 6-8 hours 6-8 hours 6-8 hours by oral by oral by oral route as route as route as needed. needed. needed. timolol timolol No timolol [facility] maleate 0.5 maleate 0.5 maleate [facility] % eye drops % eye drops 0.5 % eye ty INSTILL 1 INSTILL 1 drops Hosp tati DROP INTO DROP INTO INSTILL 1 l RIGHT EYE RIGHT EYE DROP INTO Clinics TWICE DAILY TWICE DAILY RIGHT EYE TWICE DAILY Solu-Medrol Solu-Medrol No 125mg Solu-Medro [facility] (PF) 125 (PF) 125 l (PF) 125 [facility] mg/2 mL mg/2 mL mg/2 mL ty solution solution solution [facility] for for for l injection injection injection Clinics Take 125 mg Take 125 mg Take 125 by by mg by injection injection injection route as route as route as directed directed directed for 1 day. for 1 day. for 1 day. amlodipine amlodipine No amlodipine [facility] 10 mg 10 mg 10 mg [facility] tablet TAKE tablet TAKE tablet ty 1 TABLET BY 1 TABLET BY TAKE 1 [facility] MOUTH ONCE MOUTH ONCE TABLET BY l DAILY DAILY MOUTH ONCE C linics DIRECTED DIRECTED DAILY DIRECTED brimonidine brimonidine No brimonidin [facility] 0.2 % eye 0.2 % eye e 0.2 % [facility] drops drops eye drops ty INSTILL 1 INSTILL 1 INSTILL 1 [facility]osp[facility] DROP INTO DROP INTO DROP INTO l RIGHT EYE RIGHT EYE RIGHT EYE Clinics TWICE DAILY TWICE DAILY TWICE DAILY cetirizine cetirizine No cetirizine K[facility] 10 mg 10 mg 10 mg [facility] tablet TAKE tablet TAKE tablet ty 1 TABLET BY 1 TABLET BY TAKE 1 [facility] MOUTH ONCE MOUTH ONCE TABLET BY l DAILY DAILY MOUTH ONCE Clinics DAILY clopidogrel clopidogrel No clopidogre [facility] 75 mg 75 mg l 75 mg [facility] tablet TAKE tablet TAKE tablet ty 1 TABLET BY 1 TABLET BY TAKE 1 [facility] MOUTH ONCE MOUTH ONCE TABLET BY l DAILY DAILY MOUTH ONCE Clinics DAILY fluticasone fluticasone No fluticason [facility] propionate propionate e Com osvaldo 50 50 propionate ty mcg/actuati mcg/actuati 50 [facility] on nasal on nasal mcg/actuat l spray,suspe spray,suspe ion nasal Clinics nsion [place] nsion [place] spray,susp 1 spray 1 spray ension every day every day [place] 1 by by spray intranasal intranasal every day route. route. by intranasal route. gentamicin gentamicin No gentamicin [facility] 0.3 % eye 0.3 % eye 0.3 % eye [facility] drops PLACE drops PLACE drops ty 2 DROPS IN [address] 2 [facility] AFFECTED AFFECTED DROPS IN l EYE(S) FOUR EYE(S) FOUR AFFECTED Clinics TIMES A DAY TIMES A DAY EYE(S) FOR 7 DAYS FOR 7 DAYS FOUR TIMES A DAY FOR 7 DAYS Humulin Humulin No Humulin [facility] 70/30 U-100 70/30 U-100 70/30 [facility] Insulin 50 Insulin 50 U-100 ty units daily units daily Insulin 50 [facility]ospita (if BS is (if BS is units l over 120) over 120) daily (if Clinics BS is over 120) ibuprofen ibuprofen No ibuprofen [facility] 800 mg 800 mg 800 mg [facility] tablet TAKE tablet TAKE tablet ty 1 TABLET BY 1 TABLET BY TAKE 1 [facility] MOUTH TWICE MOUTH TWICE TABLET BY l DAILY DAILY MOUTH Clinic s NEEDED NEEDED TWICE DAILY NEEDED lisinopril lisinopril No lisinopril [facility] 20 20 20 [facility] mg-hydrochl mg-hydrochl mg-hydroch ty orothiazide orothiazide [facility]zi [facility] 25 mg 25 mg de 25 mg l tablet TAKE tablet TAKE tablet Clinics 1 TABLET BY 1 TABLET BY TAKE 1 MOUTH ONCE MOUTH ONCE TABLET BY DAILY IN DAILY IN MOUTH ONCE THE MORNING THE MORNING DAILY IN THE MORNING lovastatin lovastatin No 1 Q1D lovastatin K[facility] 20 mg 20 mg 20 mg [facility] tablet Take tablet Take tablet ty 1 tablet 1 tablet Take 1 Hospi ta every day every day tablet l by oral by oral every day Clin ics route in route in by oral the the route in evening. evening. the evening. metformin metformin No metformin [facility] 1,000 mg 1,000 mg 1,000 mg Com osvaldo tablet TAKE tablet TAKE tablet ty 1 TABLET BY 1 TABLET BY TAKE 1 [facility] MOUTH TWICE MOUTH TWICE TABLET BY l DAILY DAILY MOUTH Clinics BEFORE BEFORE TWICE MEAL(S) MEAL(S) DAILY BEFORE MEAL(S) promethazin promethazin No 5mL Q7H promethazi [facility] e-DM 6.25 e-DM 6.25 ne-DM 6.25 [facility] mg-15 mg/5 mg-15 mg/5 mg-15 mg/5 ty mL oral mL oral mL oral Hospit a syrup Take syrup Take syrup Take l 5 mL every 5 mL every 5 mL every Clinics 6-8 hours 6-8 hours 6-8 hours by oral by oral by oral route as route as route as needed. For needed. For needed. Cough Cough For Cough Solu-Medrol Solu-Medrol No 125mg Solu-Medro [facility] (PF) 125 (PF) 125 l (PF) 125 [facility] mg/2 mL mg/2 mL mg/2 mL ty solution solution solution [facility] for for for l injection injection injection Clinics Take 125 mg Take 125 mg Take 125 by by mg by injection injection injection route. route. route. timolol timolol No timolol [facility] maleate 0.5 maleate 0.5 maleate [facility] % eye drops % eye drops 0.5 % eye ty INSTILL 1 INSTILL 1 drops [facility]osp tati DROP INTO DROP INTO INSTILL 1 l RIGHT EYE RIGHT EYE DROP INTO Clinics TWICE DAILY TWICE DAILY RIGHT EYE TWICE DAILY Zithromax Zithromax No Zithromax [facility] Z-[place] 250 Z-[place] 250 Z-[place] 250 [facility] mg tablet mg tablet mg tablet ty TAKE 2 TAKE 2 TAKE 2 [facility]ospita TABLETS TABLETS TABLETS l (500 MG) BY (500 MG) BY (500 MG) Clinics ORAL ROUTE ORAL ROUTE BY ORAL ONCE DAILY ONCE DAILY ROUTE ONCE FOR 1 DAY FOR 1 DAY DAILY FOR THEN 1 THEN 1 1 DAY THEN TABLET (250 TABLET (250 1 TABLET MG) BY ORAL MG) BY ORAL (250 MG) ROUTE ONCE ROUTE ONCE BY ORAL DAILY FOR 4 DAILY FOR 4 ROUTE ONCE DAYS DAYS DAILY FOR 4 DAYS amlodipine amlodipine No amlodipine [facility] 10 mg 10 mg 10 mg [facility] tablet TAKE tablet TAKE tablet ty 1 TABLET BY 1 TABLET BY TAKE 1 [facility] MOUTH ONCE MOUTH ONCE TABLET BY l DAILY DAILY MOUTH ONCE C linics DIRECTED DIRECTED DAILY DIRECTED brimonidine brimonidine No brimonidin [facility] 0.2 % eye 0.2 % eye e 0.2 % [facility] drops drops eye drops ty INSTILL 1 INSTILL 1 INSTILL 1 [facility]osp[facility] DROP INTO DROP INTO DROP INTO l RIGHT EYE RIGHT EYE RIGHT EYE Clinics TWICE DAILY TWICE DAILY TWICE DAILY cetirizine cetirizine No cetirizine K[facility] 10 mg 10 mg 10 mg [facility] tablet TAKE tablet TAKE tablet ty 1 TABLET BY 1 TABLET BY TAKE 1 [facility] MOUTH ONCE MOUTH ONCE TABLET BY l DAILY DAILY MOUTH ONCE Clinics DAILY clopidogrel clopidogrel No clopidogre [facility] 75 mg 75 mg l 75 mg [facility] tablet TAKE tablet TAKE tablet ty 1 TABLET BY 1 TABLET BY TAKE 1 [facility] MOUTH ONCE MOUTH ONCE TABLET BY l DAILY DAILY MOUTH ONCE Clinics DAILY fluticasone fluticasone No fluticason [facility] propionate propionate e Com osvaldo 50 50 propionate ty mcg/actuati mcg/actuati 50 [facility] on nasal on nasal mcg/actuat l spray,suspe spray,suspe ion nasal Clinics nsion [place] nsion [place] spray,susp 1 spray 1 spray ension every day every day [place] 1 by by spray intranasal intranasal every day route. route. by intranasal route. gentamicin gentamicin No gentamicin [facility] 0.3 % eye 0.3 % eye 0.3 % eye [facility] drops PLACE drops PLACE drops ty 2 DROPS IN [address] 2 [facility] AFFECTED AFFECTED DROPS IN l EYE(S) FOUR EYE(S) FOUR AFFECTED Clinics TIMES A DAY TIMES A DAY EYE(S) FOR 7 DAYS FOR 7 DAYS FOUR TIMES A DAY FOR 7 DAYS Humulin Humulin No Humulin [facility] 70/30 U-100 70/30 U-100 70/30 [facility] Insulin 50 Insulin 50 U-100 ty units daily units daily Insulin 50 [facility]ospita (if BS is (if BS is units l over 120) over 120) daily (if Clinics BS is over 120) ibuprofen ibuprofen No ibuprofen [facility] 800 mg 800 mg 800 mg [facility] tablet TAKE tablet TAKE tablet ty 1 TABLET BY 1 TABLET BY TAKE 1 [facility] MOUTH TWICE MOUTH TWICE TABLET BY l DAILY DAILY MOUTH Clinic s NEEDED NEEDED TWICE DAILY NEEDED lisinopril lisinopril No lisinopril [facility] 20 20 20 [facility] mg-hydrochl mg-hydrochl mg-hydroch ty orothiazide orothiazide [facility]iazi [facility] 25 mg 25 mg de 25 mg l tablet TAKE tablet TAKE tablet Clinics 1 TABLET BY 1 TABLET BY TAKE 1 MOUTH ONCE MOUTH ONCE TABLET BY DAILY IN DAILY IN MOUTH ONCE THE MORNING THE MORNING DAILY IN THE MORNING lovastatin lovastatin No 1 Q1D lovastatin K[facility] 20 mg 20 mg 20 mg [facility] tablet Take tablet Take tablet ty 1 tablet 1 tablet Take 1 Hospi ta every day every day tablet l by oral by oral every day Clin ics route in route in by oral the the route in evening. evening. the evening. metformin metformin No metformin [facility] 1,000 mg 1,000 mg 1,000 mg Com osvaldo tablet TAKE tablet TAKE tablet ty 1 TABLET BY 1 TABLET BY TAKE 1 [facility] MOUTH TWICE MOUTH TWICE TABLET BY l DAILY DAILY MOUTH Clinics BEFORE BEFORE TWICE MEAL(S) MEAL(S) DAILY BEFORE MEAL(S) promethazin promethazin No promethazi [facility] e-DM 6.25 e-DM 6.25 ne-DM 6.25 [facility] mg-15 mg/5 mg-15 mg/5 mg-15 mg/5 ty mL oral mL oral mL oral Hospit a syrup TAKE syrup TAKE syrup TAKE l 5 ML BY 5 ML BY 5 ML BY Clinic s MOUTH EVERY MOUTH EVERY MOUTH 6 TO 8 6 TO 8 EVERY 6 TO HOURS HOURS 8 HOURS NEEDED NEEDED NEEDED Solu-Medrol Solu-Medrol No 125mg Solu-Medro [facility] (PF) 125 (PF) 125 l (PF) 125 [facility] mg/2 mL mg/2 mL mg/2 mL ty solution solution solution [facility] for for for l injection injection injection Clinics Take 125 mg Take 125 mg Take 125 by by mg by injection injection injection route. route. route. timolol timolol No timolol [facility] maleate 0.5 maleate 0.5 maleate [facility] % eye drops % eye drops 0.5 % eye ty INSTILL 1 INSTILL 1 drops Hosp tati DROP INTO DROP INTO INSTILL 1 l RIGHT EYE RIGHT EYE DROP INTO Clinics TWICE DAILY TWICE DAILY RIGHT EYE TWICE DAILY Immunizations Ordered Filled Immunization Date Status Comments [facility] e Immunization Name Name COVID-19, mRNA, COVID-19, mRNA, 2021-10-06 Completed [place] LNP-S, PF, 100 LNP-S, PF, 100 00:00:00 Commun ity mcg/0.5 mL dose mcg/0.5 mL dose [facility] ([facility] ([facility] COVID-19, mRNA, COVID-19, mRNA, 2021-10-06 Completed [place] LNP-S, PF, 100 LNP-S, PF, 100 00:00:00 Commun ity mcg/0.5 mL dose mcg/0.5 mL dose [facility] COVID-19, mRNA, COVID-19, mRNA, 2021-10-06 Completed [place] LNP-S, PF, 100 LNP-S, PF, 100 00:00:00 Commun ity mcg/0.5 mL dose mcg/0.5 mL dose [facility] COVID-19, mRNA, COVID-19, mRNA, 2021-10-06 Completed [place] LNP-S, PF, 100 LNP-S, PF, 100 00:00:00 Commun ity mcg/0.5 mL dose mcg/0.5 mL dose [facility] COVID-19, mRNA, COVID-19, mRNA, 2021-10-06 Completed [place] LNP-S, PF, 100 LNP-S, PF, 100 00:00:00 Commun ity mcg/0.5 mL dose mcg/0.5 mL dose [facility] COVID-19, mRNA, COVID-19, mRNA, 2021-10-06 Completed [place] LNP-S, PF, 100 LNP-S, PF, 100 00:00:00 Commun ity mcg/0.5 mL dose mcg/0.5 mL dose [facility] COVID-19, mRNA, COVID-19, mRNA, 2021-10-06 Completed [place] LNP-S, PF, 100 LNP-S, PF, 100 00:00:00 Commun ity mcg/0.5 mL dose mcg/0.5 mL dose [facility] COVID-19, mRNA, COVID-19, mRNA, 2021-10-06 Completed [place] LNP-S, PF, 100 LNP-S, PF, 100 00:00:00 Commun ity mcg/0.5 mL dose mcg/0.5 mL dose [facility] COVID-19, mRNA, COVID-19, mRNA, 2021-10-06 Completed [place] LNP-S, PF, 100 LNP-S, PF, 100 00:00:00 Commun ity mcg/0.5 mL dose mcg/0.5 mL dose [facility] COVID-19, mRNA, COVID-19, mRNA, 2021-10-06 Completed [place] LNP-S, PF, 100 LNP-S, PF, 100 00:00:00 Commun ity mcg/0.5 mL dose mcg/0.5 mL dose [facility] COVID-19, mRNA, COVID-19, mRNA, 2021-10-06 Completed [place] LNP-S, PF, 100 LNP-S, PF, 100 00:00:00 Commun ity mcg/0.5 mL dose mcg/0.5 mL dose [facility] COVID-19, mRNA, COVID-19, mRNA, 2021-10-06 Completed [place] LNP-S, PF, 100 LNP-S, PF, 100 00:00:00 Commun ity mcg/0.5 mL dose mcg/0.5 mL dose [facility] COVID-19, mRNA, COVID-19, mRNA, 2021-10-06 Completed [place] LNP-S, PF, 100 LNP-S, PF, 100 00:00:00 [facility] ity mcg/0.5 mL dose mcg/0.5 mL dose [facility] COVID-19, mRNA, COVID-19, mRNA, 2021-10-06 Completed [place] LNP-S, PF, 100 LNP-S, PF, 100 00:00:00 [facility] ity mcg/0.5 mL dose mcg/0.5 mL dose [facility] COVID-19, mRNA, COVID-19, mRNA, 2021-06-01 Completed [place] LNP-S, PF, 100 LNP-S, PF, 100 00:00:00 Commun ity mcg/0.5 mL dose mcg/0.5 mL dose [facility]osp ital Clinics COVID-19, mRNA, COVID-19, mRNA, 2021-06-01 Completed [place] LNP-S, PF, 100 LNP-S, PF, 100 00:00:00 Commun ity mcg/0.5 mL dose mcg/0.5 mL dose [facility] ital Clinics COVID-19, mRNA, COVID-19, mRNA, 2021-06-01 Completed [place] LNP-S, PF, 100 LNP-S, PF, 100 00:00:00 Commun ity mcg/0.5 mL dose mcg/0.5 mL dose [facility] Clinics COVID-19, mRNA, COVID-19, mRNA, 2021-06-01 Completed [place] LNP-S, PF, 100 LNP-S, PF, 100 00:00:00 Commun ity mcg/0.5 mL dose mcg/0.5 mL dose [facility] COVID-19, mRNA, COVID-19, mRNA, 2021-06-01 Completed [place] LNP-S, PF, 100 LNP-S, PF, 100 00:00:00 Commun ity mcg/0.5 mL dose mcg/0.5 mL dose [facility] COVID-19, mRNA, COVID-19, mRNA, 2021-06-01 Completed [place] LNP-S, PF, 100 LNP-S, PF, 100 00:00:00 Commun ity mcg/0.5 mL dose mcg/0.5 mL dose [facility] COVID-19, mRNA, COVID-19, mRNA, 2021-06-01 Completed [place] LNP-S, PF, 100 LNP-S, PF, 100 00:00:00 Commun ity mcg/0.5 mL dose mcg/0.5 mL dose [facility] COVID-19, mRNA, COVID-19, mRNA, 2021-06-01 Completed [place] LNP-S, PF, 100 LNP-S, PF, 100 00:00:00 Commun ity mcg/0.5 mL dose mcg/0.5 mL dose [facility] COVID-19, mRNA, COVID-19, mRNA, 2021-06-01 Completed [place] LNP-S, PF, 100 LNP-S, PF, 100 00:00:00 Commun ity mcg/0.5 mL dose mcg/0.5 mL dose [facility] COVID-19, mRNA, COVID-19, mRNA, 2021-06-01 Completed [place] LNP-S, PF, 100 LNP-S, PF, 100 00:00:00 Commun ity mcg/0.5 mL dose mcg/0.5 mL dose [facility] COVID-19, mRNA, COVID-19, mRNA, 2021-06-01 Completed [place] LNP-S, PF, 100 LNP-S, PF, 100 00:00:00 Commun ity mcg/0.5 mL dose mcg/0.5 mL dose [facility] COVID-19, mRNA, COVID-19, mRNA, 2021-06-01 Completed [place] LNP-S, PF, 100 LNP-S, PF, 100 00:00:00 Commun ity mcg/0.5 mL dose mcg/0.5 mL dose [facility] COVID-19, mRNA, COVID-19, mRNA, 2021-06-01 Completed [place] LNP-S, PF, 100 LNP-S, PF, 100 00:00:00 Commun ity mcg/0.5 mL dose mcg/0.5 mL dose [facility] COVID-19, mRNA, COVID-19, mRNA, 2021-06-01 Completed [place] LNP-S, PF, 100 LNP-S, PF, 100 00:00:00 Commun ity mcg/0.5 mL dose mcg/0.5 mL dose [facility] ([facility] COVID-19, mRNA, COVID-19, mRNA, 2021-06-01 Completed [place] [place] LNP-S, PF, 100 LNP-S, PF, 100 00:00:00 Commun ity mcg/0.5 mL dose mcg/0.5 mL dose [facility] ([facility]) (Moderna) Clinics COVID-19, mRNA, COVID-19, mRNA, 2021-06-01 Completed Swee ny LNP-S, PF, 100 LNP-S, PF, 100 00:00:00 Commun ity mcg/0.5 mL dose mcg/0.5 mL dose Hosp ital (Moderna) (Moderna) Clinics COVID-19, mRNA, COVID-19, mRNA, 2021-06-01 Completed Swee ny LNP-S, PF, 100 LNP-S, PF, 100 00:00:00 Commun ity mcg/0.5 mL dose mcg/0.5 mL dose Hosp [facility] (Moderna) (Moderna) Clinics COVID-19, mRNA, COVID-19, mRNA, Unknown Completed Swee ny LNP-S, PF, 100 LNP-S, PF, 100 Commun ity mcg/0.5 mL dose mcg/0.5 mL dose [facility]osp [facility] (Moderna) (Moderna) Clinics COVID-19, mRNA, COVID-19, mRNA, Unknown Completed Swee ny LNP-S, PF, 100 LNP-S, PF, 100 Commun ity mcg/0.5 mL dose mcg/0.5 mL dose [facility]osp [facility] (Moderna) (Moderna) Clinics COVID-19, mRNA, COVID-19, mRNA, Unknown Completed Swee ny LNP-S, PF, 100 LNP-S, PF, 100 Commun ity mcg/0.5 mL dose mcg/0.5 mL dose [facility]osp [facility] (Moderna) (Moderna) Clinics COVID-19, mRNA, COVID-19, mRNA, Unknown Completed Swee ny LNP-S, PF, 100 LNP-S, PF, 100 Commun ity mcg/0.5 mL dose mcg/0.5 mL dose [facility]osp [facility] (Moderna) (Moderna) Clinics COVID-19, mRNA, COVID-19, mRNA, Unknown Completed Swee ny LNP-S, PF, 100 LNP-S, PF, 100 Commun ity mcg/0.5 mL dose mcg/0.5 mL dose [facility] (Moderna) (Moderna) Clinics COVID-19, mRNA, COVID-19, mRNA, Unknown Completed Swee ny LNP-S, PF, 100 LNP-S, PF, 100 Commun ity mcg/0.5 mL dose mcg/0.5 mL dose [facility]osp [facility] (Moderna) (Moderna) Clinics Vital Signs Vital Name Observation Time Observation Value Comments Source BP Diastolic 2023-09-27 00:00:00 75 mm[Hg] [facility] s Height 2023-09-27 00:00:00 71 [in_i] [facility] s BP Systolic 2023-09-27 00:00:00 119 mm[Hg] [facility] s BP Diastolic 2023-09-21 00:00:00 69 mm[Hg] [facility] s Body Weight 2023-09-21 00:00:00 2972.8 [oz_av] [facility] s Height 2023-09-21 00:00:00 71 [in_i] [facility] s BP Systolic 2023-09-21 00:00:00 137 mm[Hg] [facility] s BMI (Body Mass 2023-09-21 00:00:00 25.9 kg/m2 [facility]) [facility] s BMI (Body Mass 2023-08-18 00:00:00 25.2 kg/m2 [facility]) [facility] s BP Systolic 2023-08-18 00:00:00 141 mm[Hg] [facility] s Height 2023-08-18 00:00:00 71 [in_i] [facility] s Body Weight 2023-08-18 00:00:00 2892.8 [oz_av] [facility] s BP Diastolic 2023-08-18 00:00:00 72 mm[Hg] [facility] s BP Diastolic 2023-05-18 00:00:00 79 mm[Hg] [facility] s Height 2023-05-18 00:00:00 71 [in_i] [facility] s BMI (Body Mass 2023-05-18 00:00:00 26.2 kg/m2 [facility]) [facility] s BP Systolic 2023-05-18 00:00:00 147 mm[Hg] [facility] s Body Weight 2023-05-18 00:00:00 3001.6 [oz_av] [facility] s BP Diastolic 2023-01-31 00:00:00 74 mm[Hg] [facility] s Height 2023-01-31 00:00:00 71 [in_i] [facility] s BP Systolic 2023-01-31 00:00:00 153 mm[Hg] [facility] s Body Weight 2023-01-31 00:00:00 3036.8 [oz_av] [facility] s BP Diastolic 2022-12-15 00:00:00 59 mm[Hg] [facility] s Height 2022-12-15 00:00:00 71 [in_i] [facility] s BMI (Body Mass 2022-12-15 00:00:00 27.2 kg/m2 [facility]) [facility] s BP Systolic 2022-12-15 00:00:00 154 mm[Hg] [facility] s Body Weight 2022-12-15 00:00:00 3120 [oz_av] [facility] s BP Diastolic 2022-11-17 00:00:00 63 mm[Hg] [facility] s Height 2022-11-17 00:00:00 71 [in_i] [facility] s BMI (Body Mass 2022-11-17 00:00:00 27.2 kg/m2 [facility]) [facility] s BP Systolic 2022-11-17 00:00:00 144 mm[Hg] [facility] s Body Weight 2022-11-17 00:00:00 3120 [oz_av] [facility] s BP Diastolic 2022-11-02 00:00:00 65 mm[Hg] [facility] s Height 2022-11-02 00:00:00 71 [in_i] [facility] s BMI (Body Mass 2022-11-02 00:00:00 26.9 kg/m2 [facility]) [facility] s BP Systolic 2022-11-02 00:00:00 138 mm[Hg] [facility] s Body Weight 2022-11-02 00:00:00 3091.2 [oz_av] [facility] s BP Diastolic 2022-09-08 00:00:00 72 mm[Hg] [facility] s Height 2022-09-08 00:00:00 71 [in_i] [facility] s BMI (Body Mass 2022-09-08 00:00:00 26.4 kg/m2 [facility]) [facility] s BP Systolic 2022-09-08 00:00:00 149 mm[Hg] [facility] s Body Weight 2022-09-08 00:00:00 3030.4 [oz_av] [facility] s BP Diastolic 2022-07-26 00:00:00 67 mm[Hg] [facility] s Height 2022-07-26 00:00:00 71 [in_i] [facility] s BMI (Body Mass 2022-07-26 00:00:00 25.8 kg/m2 [facility]) [facility] s BP Systolic 2022-07-26 00:00:00 150 mm[Hg] [facility] s Body Weight 2022-07-26 00:00:00 2956.8 [oz_av] [facility] s BP Diastolic 2021-10-28 00:00:00 69 mm[Hg] [facility] s Height 2021-10-28 00:00:00 71 [in_i] [facility] s BMI (Body Mass 2021-10-28 00:00:00 26.2 kg/m2 [facility] s BP Systolic 2021-10-28 00:00:00 155 mm[Hg] [facility] s Body Weight 2021-10-28 00:00:00 3008 [oz_av] [facility] s BP Diastolic 2021-10-07 00:00:00 74 mm[Hg] [facility] s Height 2021-10-07 00:00:00 71 [in_i] [facility] s BMI (Body Mass 2021-10-07 00:00:00 26.4 kg/m2 [facility] s BP Systolic 2021-10-07 00:00:00 159 mm[Hg] [facility] s Body Weight 2021-10-07 00:00:00 3027.2 [oz_av] [facility] s BP Diastolic 2021-08-05 00:00:00 83 mm[Hg] [facility] s Height 2021-08-05 00:00:00 71 [in_i] [facility] s BMI (Body Mass 2021-08-05 00:00:00 25.9 kg/m2 [facility] s BP Systolic 2021-08-05 00:00:00 154 mm[Hg] [facility] s Body Weight 2021-08-05 00:00:00 2969.6 [oz_av] [facility] s BP Diastolic 2021-07-03 00:00:00 67 mm[Hg] [facility] s Height 2021-07-03 00:00:00 71 [in_i] [facility] s BMI (Body Mass 2021-07-03 00:00:00 25.8 kg/m2 [facility] s BP Systolic 2021-07-03 00:00:00 131 mm[Hg] [facility] s Body Weight 2021-07-03 00:00:00 2956.8 [oz_av] [facility] s BP Diastolic 2021-06-22 00:00:00 80 mm[Hg] [facility] s Height 2021-06-22 00:00:00 71 [in_i] [facility] s BMI (Body Mass 2021-06-22 00:00:00 26.6 kg/m2 [facility] s BP Systolic 2021-06-22 00:00:00 129 mm[Hg] [facility] s Body Weight 2021-06-22 00:00:00 3048 [oz_av] [facility] s BP Diastolic 2021-04-22 00:00:00 83 mm[Hg] [facility] s Height 2021-04-22 00:00:00 71 [in_i] [facility] s BP Systolic 2021-04-22 00:00:00 171 mm[Hg] [facility] s BP Diastolic 2021-04-15 00:00:00 71 mm[Hg] [facility] s Height 2021-04-15 00:00:00 71 [in_i] [facility] s BMI (Body Mass 2021-04-15 00:00:00 27.1 kg/m2 [facility] s BP Systolic 2021-04-15 00:00:00 154 mm[Hg] [facility] s Body Weight 2021-04-15 00:00:00 3104 [oz_av] [facility] s BP Diastolic 2021-04-01 00:00:00 70 mm[Hg] [facility] s Height 2021-04-01 00:00:00 71 [in_i] [facility] s BP Systolic 2021-04-01 00:00:00 159 mm[Hg] [facility] s BP Diastolic 2021-03-25 00:00:00 75 mm[Hg] [facility] s Height 2021-03-25 00:00:00 71 [in_i] [facility] s BMI (Body Mass 2021-03-25 00:00:00 27.1 kg/m2 [facility]) [facility] s BP Systolic 2021-03-25 00:00:00 139 mm[Hg] [facility] s Body Weight 2021-03-25 00:00:00 3107.2 [oz_av] [facility] s BP Diastolic 2020-12-10 00:00:00 78 mm[Hg] [facility] s Height 2020-12-10 00:00:00 71 [in_i] [facility] s BMI (Body Mass 2020-12-10 00:00:00 27.4 kg/m2 [facility] Index) [facility] s BP Systolic 2020-12-10 00:00:00 159 mm[Hg] [facility] s Body Weight 2020-12-10 00:00:00 3142.4 [oz_av] [facility] s Procedures Procedure Date / Time Performed Performing Clinician Sourc e Cholecystectomy 2022-04-01 00:00:00 [facility] [place], thyroid 2021-04-01 00:00:00 [facility] Partial Hysterectomy [facility] Plan of Care Planned Activity Planned Date Details Comments Source Diagnostic Test Pending 2023-09-21 rapid strep group [facility] 00:00:00 A, throat [code = [facility] linics rapid strep group A, throat] Diagnostic Test Pending 2023-09-21 rapid flu (A+B) [facility] 00:00:00 [code = rapid flu [facility] linics (A+B)] Future Appointment 2023-11-[address] 00:00:00 [facility], [address]; , [place] [address] Instructions [facility] s Encounters Start End Encounter Admission Attending Care Care Encounter Source Date/Time Date/Time Type Type Clinicians Facility Department ID 2023-09-27 2023-09-27 Shannan [facility] [place] - [place] [id number] Kila 00:00:00 00:00:00 Alberto Hernandez Co mmuni REMELT OPERATOR-NYLON MACHINE OPERATOR-B Hospital - ty C: [address] [facility], CLINIC [address], [place] [address] , Ph. 2023-09-21 2023-09-21 Polina [facility] [place] - [place] [id number] Kila 00:00:00 00:00:00 Matt, [facility] GOPAL, MSN, Hospital - ty [facility] [address] [place] [address], CLINIC [address], [place] [address] , Ph. 2023-08-28 2023-08-28 Outpatient [facility] [id number] Kila 00:00:00 00:00:00 129 [facility] 2023-08-28 2023-08-28 Outpatient [facility] [id number] Kila 00:00:00 00:00:00 205 [facility] 2023-08-18 [facility]23[facility] [place] [facility] [place] K[place] 00:00:00 00:00:00 Matt, [facility] GOPAL, MSN, [facility] - ty [facility] [address] [place] [address], CLINIC [address], [place] [address] , Ph. 2023-08-14 2023-08-14 Outpatient [facility] [id number] Kila 00:00:00 00:00:00 026 [facility] 2023-06-04 2023-06-04 Outpatient [facility] [id number] Kila 00:00:00 00:00:00 821 [facility] 2023-05-18 2023[facility]05-[facility] [place] Kila 00:00:00 00:00:00 Shaka [facility] GOPAL, MSN, [facility] - ty [facility] [address] [place] [address], CLINIC [address], [place] [address] , Ph. 2023-04-22 2023-04-22 Outpatient [facility] [id number] Kila 00:00:00 00:00:00 630 [facility] 2023-04-22 2023-04-22 Outpatient [facility] [id number] Kila 00:00:00 00:00:00 726 [facility] i [facility] 2023-04-13 2023-04-13 Outpatient ISABEL [facility] [id number] [place] 09:40:00 09:40:00 [id number] Critical access hospital 2023-03-18 2023-03-18 Outpatient [facility] [id number] Kila 00:00:00 00:00:00 526 [facility] 2023-02-13 2023-02-13 Outpatient [facility] [id number] Kila 00:00:00 00:00:00 423 [facility] 2023-01-31 2023-01-31 Polina [facility] [place] - [place] 10 Kila 00:00:00 00:00:00 Alberto Matt APRN, MSN, Hospital - ty NYLON MACHINE OPERATOR-BC: [facility] [address] [place] [address], CLINIC [address] [place] [address] , Ph. 2022-12-15 2022-12-15 Shannan [facility] [place] - [place] [id number] Kila 00:00:00 00:00:00 Alberto Hernandez Ne mmuni REMELT OPERATOR-NYLON MACHINE OPERATOR-B Hospital - ty C: [address] [place] [address], CLINIC [address] [place] [address] , Ph. 2022-12-08 2022-12-08 Outpatient [facility] [id number] Kila 00:00:00 00:00:00 222 Commun i ty Hosp[facility] Clinics 2022-12-08 2022-12-08 Outpatient [facility] [id number] Kila 00:00:00 00:00:00 410 Commun i [facility] Clinics 2022-11-17 2022-11-17 Polina [facility] [place] - [place] [id number] Kila 00:00:00 00:00:00 Alberto Matt Comm brooke HERRON, MSN, Hospital - ty [facility] [address] [place] [address], CLINIC [address] [place] [phone] , Ph. 2022-11-02 2022-11-02 Outpatient [facility] [id number] Kila 00:00:00 00:00:00 110 [facility] Clinics 2022-11-02 2022-11-02 Outpatient [facility] [id number] Kila 00:00:00 00:00:00 125 [facility] i [facility] Clinics 2022-11-02 2022-11-02 Polina [facility] [place] - [place] 10 Kila 00:00:00 00:00:00 Shaka [facility] Comm brooke HERRON MSN, Hospital - ty [facility] [address], CLINIC [address] [place] [address] , Ph. 2022-09-08 2022-09-08 Outpatient [facility] [id number] Kila 00:00:00 00:00:00 116 Commun i ty Hospita l [facility] 2022-09-08 2022-09-08 Polina [facility] [place] - [place] [id number] Kila 00:00:00 00:00:00 Shaka [facility] ROSALBA cox APRN, Hospital - ty [facility] [address] [place] [address], CLINIC [address] [place] [address] , Ph. 2022-07-26 2022-07-26 Outpatient [facility] [id number] Kila 00:00:00 00:00:00 003 Commun i [facility]osp[facility] Clinics 2022-07-26 2022-07-26 Polina [facility] [place] - [place] [id number] Kila 00:00:00 00:00:00 Sahka [facility] brooke HERRON, MSN, Hospital - ty [facility] [address], [place] [address] , Ph. 2021-10-28 2021-10-28 Outpatient [facility] [id number] Kila 12:01:00 12:01:00 105 Commun i ty Hospita [facility] 2021-10-28 2021-10-28 Carlotta [facility] [place] - [place] Kila 00:00:00 00:00:00 [facility] REMELT OPERATOR-ADJUNCT PSYCHOLOGY FACULTY MEMBER-C: Hospital - ty [address] [place] [address] [address], [place] [address] , Ph. 2021-10-28 2021-10-28 Outpatient Ruiz, [facility] [id number] 00:00:00 00:00:00 Carlotta [id number] 2021-10-07 Outpatient [facility] [id number] Kila 04:19:00 04:19:00 215 Commun i ty Hospita [facility] 2021-10-07 2021-10-07 Carlotta [facility] [place] [id number] Kila 00:00:00 00:00:00 [facility] PSYCHOLOG[facility] FACULTY MEMBER-C: Hospital - ty [address] [place] [address] [address], [place] [address] , Ph. 2021-10-07 2021-10-07 Outpatient Ruiz, [facility] [id number] 00:00:00 00:00:00 Carlotta [id number] 2021-09-30 2021-09-30 Outpatient [facility] [id number] Kila 10:01:00 10:01:00 208 Commun i ty Hospita [facility] Clinics 2021-08-05 2021-08-05 Outpatient [facility] 389 Kila 11:51:00 11:51:00 _L 013 Commun i ty Hospita l [facility] 2021-08-05 2021-08-05 Outpatient [facility] [id number] 00:00:00 00:00:00 , Meryl [id number] Herminia [id number] 2021-08-05 2021-08-05 Tiffani [facility] [place] 202 [id number] Kila 00:00:00 00:00:00 [facility] C fitz barclay, VAHEP-C: Hospital - ty [address] [place] [address], [place] [address] , Ph. 2021-07-03 2021-07-03 Outpatient [facility] 389 Kila 12:44:00 12:44:00 _L 910 Commun i ty Hospita [facility] 2021-07-03 2021-07-03 Outpatient [facility] [id number] 00:00:00 00:00:00 , Meryl [id number] Herminia [id number] 2021-07-03 2021-07-03 Meryl Hope [facility] [place] - [place] 202 [id number] Kila 00:00:00 00:00:00 [facility] VAHE WaldronP-C: Hospital - ty [address] [place] [address] [address], [place] [address] , Ph. 2021-06-22 2021-06-22 Outpatient [facility] [id number] Kila 06:00:00 06:00:00 _L 830 Commun i ty Hosp[facility] Clinics 2021-06-22 2021-06-22 Outpatient [facility] [id number] 00:00:00 00:00:00 , Meryl [id number] Herminia [id number] 2021-06-22 2021-06-22 Meryl Hope [facility] [place] - [place] 202 [id number] Kila 00:00:00 00:00:00 [facility] LISA Waldron-C: Hospital - ty [address] [facility] [address], [place] [address] , Ph. 2021-04-22 2021-04-22 Outpatient [facility] [id number] Kila 05:46:00 05:46:00 _L 630 Commun i ty Hospita [facility] 2021-04-22 2021-04-22 Outpatient [facility] [id number] 00:00:00 00:00:00 , Meryl [id number] Herminia [id number] 2021-04-22 2021-04-22 Meryl Hope [facility] [place] - [place] 202 [id number] Kila 00:00:00 00:00:00 [facility] LISA Waldron-C: Hospital - ty [address] [facility] [address], [place] [address] , Ph. 2021-04-15 2021-04-15 Outpatient [facility] [id number] Kila 12:15:00 12:15:00 _L 623 Commun i ty Hospita [facility] 2021-04-15 2021-04-15 Outpatient [facility] [id number] 00:00:00 00:00:00 Carlotta [id number] 2021-04-15 2021-04-[address] [facility] [place] - Kila [id number] Kila 00:00:00 00:00:00 Alberto Ruiz REMELT OPERATOR-ADJUNCT PSYCHOLOGY FACULTY MEMBER-C: Hospital - ty [address] [facility] [address], [place] [address] , Ph. 2021-04-01 2021-04-01 Outpatient [facility] 389 Kila 11:11:00 11:11:00 _L 609 Commun i ty [facility]osp[facility] Clinics 2021-04-01 2021-04-01 Meryl Hope [facility] [place] - [place] 202 [id number] Kila 00:00:00 00:00:00 [facility] LISA v[facility]quez-C: Hospital - ty [address] [place] [address] [address], [place] [address] , Ph. 2021-04-01 2021-04-01 Outpatient [facility] [id number] 00:00:00 00:00:00 , Meryl [id number] Herminia [id number] 2021-04-01 2021-04-01 Outpatient [facility] [id number] 00:00:00 00:00:00 , Meryl [id number] Herminia [id number] 2021-03-25 2021-03-25 Outpatient [facility] [id number] Kila 11:00:00 11:00:00 _L 602 Commun i ty [facility]osp[facility] Clinics 2021-03-25 2021-03-25 Outpatient [facility] [id number] 00:00:00 00:00:00 , Meryl [id number] Herminia [id number] 2021-03-25 2021-03-25 Tiffani [facility] [place] - [place] 202 [id number] Kila 00:00:00 00:00:00 [facility] LISA Waldron-C: Hospital - ty [address] [place] [address] [address], [place] [address] , Ph. 2020-12-16 2020-12-16 Outpatient [facility] 389 Kila 11:04:00 11:04:00 _L 223 Commun i ty [facility]osp[facility] Clinics 2020-12-15 2020-12-15 Outpatient [facility] [id number] Kila 10:19:00 10:19:00 _L 222 Commun i ty Hospita [facility] Clinics 2020-12-10 2020-12-10 Outpatient [facility] [id number] Kila 04:21:00 04:21:00 _L 217 Commun i ty Hosp[facility] Clinics 2020-12-10 2020-12-10 Outpatient [facility] [id number] 00:00:00 00:00:00 , Meryl [id number] Herminia [id number] 2020-12-10 2020-12-10 Meryl Hope [facility] [place] - [place] 202 [id number] Kila 00:00:00 00:00:00 [facility] Acute Hospital LISA vázquez-C: [facility] ty [address] [place] [address], [facility] Clinics [address], [place] [address] , Ph. Results Test Description Test Time Test Comments Results Result Comments Source rapid flu (A+B) 2023-09-21 11:02:30 Test Item Value Reference Range Interpretation Comme nts FLU A (test code = FLU A) negative FLU B (test code = FLU B) [facility] 11:02:30 Test Item Value Reference Range Interpretation Comments FLU A (test code = FLU A) negative FLU B (test code = FLU B) negative [facility] A, [id number] 11:02:22 Test Item Value Reference Range Interpretation Comments Strep (test code = Strep) negative [facility], [id number] 11:02:22 Test Item Value Reference Range Interpretation Comments Strep (test code = Strep) negative [facility], [id number] 09:18:00 Test Item Value Reference Range Interpretation Comments Strep (test code = Strep) positive [facility], [id number] 09:18:00 Test Item Value Reference Range Interpretation Comments Strep (test code = Strep) positive [facility], [id number] 11:21:00 Test Item Value Reference Range Interpretation Comments Strep (test code = Strep) negative [facility] (A+B)2022-11-17 11:21:00 Test Item Value Reference Range Interpretation Comments FLU A (test code = FLU A) negative FLU B (test code = FLU B) negative [facility] ([facility]OVID-19) Ag [Presence] in Respiratory specimen by Rapid [id number] 11:21:00 Test Item Value Reference Range Interpretation Comments SARS CoV 2 (test code = SARS CoV 2) negative [facility] Campus[facility]inal[facility] macro (dipstick) panel - Urine 2021-10-28 10:30:00 Test Item Value Reference Range Interpretation Comments Leukocytes (test code = Trace Leukocytes) Nitrite (test code = negative Nitrite) Urobilinogen (test code = .2 Urobilinogen) Protein (test code = Negative Protein) pH (test code = pH) 5.0 Blood (test code = Blood) Hemolyzed: Trace Specific [place] (test code 1.025 = Specific [place]) Ketone (test code = Ketone) Trace Bilirubin (test code = Negative Bilirubin) Glucose (test code = Negative Glucose) Appearance (test code = Cloudy Appearance) Color (test code = Color) Dark Yellow [facility] W Auto Differential panel - [id number] 00:00:00 Test Item Value Reference Range Interpretation Comments Leukocytes [#/volume] in Blood 7.8 x10e3/uL 3.4-10.8 by Automated count (test code = 6690-2) Erythrocytes [#/volume] in 4.37 x10e6/uL 3.77-5.28 Blood by Automated count (test code = 789-8) Hemoglobin [Mass/volume] in 10.4 g/dL 11.1-15.9 L Blood (test code = 718-7) Hematocrit [Volume Fraction] of 31.6 % 34.0-46.6 L Blood by Automated count (test code = 4544-3) Erythrocyte mean corpuscular 72 fL 79-97 L volume [Entitic volume] by Automated count (test code = 787-2) Erythrocyte mean corpuscular 23.8 pg 26.6-33.0 L hemoglobin [Entitic mass] by Automated count (test code = 785-6) Erythrocyte mean corpuscular 32.9 g/dL 31.5-35.7 hemoglobin concentration [Mass/volume] by Automated count (test code = 786-4) Erythrocyte distribution width 14.6 % 11.7-15.4 [Ratio] by Automated count (test code = 788-0) Platelets [#/volume] in Blood 490 x10e3/uL 150-450 H by Automated count (test code = 777-3) Neutrophils/100 leukocytes in 54 % not estab. Blood by Automated count (test code = 770-8) Lymphocytes/100 leukocytes in 34 % not estab. Blood by Automated count (test code = 736-9) Monocytes/100 leukocytes in 10 % not estab. Blood by Automated count (test code = 5905-5) Eosinophils/100 leukocytes in 1 % not estab. Blood by Automated count (test code = 713-8) Basophils/100 leukocytes in 1 % not estab. Blood by Automated count (test code = 706-2) immature cells (test code = pole shaver helper immature cells) Neutrophils [#/volume] in Blood 4.2 x10e3/uL 1.4-7.0 by Automated count (test code = 751-8) Lymphocytes [#/volume] in Blood 2.6 x10e3/uL 0.7-3.1 by Automated count (test code = 731-0) Monocytes [#/volume] in Blood 0.7 x10e3/uL 0.1-0.9 by Automated count (test code = 742-7) Eosinophils [#/volume] in Blood 0.1 x10e3/uL 0.0-0.4 by Automated count (test code = 711-2) Basophils [#/volume] in Blood 0.1 x10e3/uL 0.0-0.2 by Automated count (test code = 704-7) Immature granulocytes/100 0 % not estab. leukocytes in Blood by Automated count (test code = 49236-8) Immature granulocytes 0.0 x10e3/uL 0.0-0.1 [#/volume] in Blood by Automated count (test code = 00683-0) Nucleated erythrocytes/100 pole shaver helper leukocytes [Ratio] in Blood by Automated count (test code = 40353-1) Morphology [Interpretation] in pole shaver helper Blood Narrative (test code = 86022-5) [facility] - Serum or [id number] 00:00:00 Test Item Value Reference Range Interpretation Comments Glucose [Mass/volume] in 189 mg/dL 65-99 H Serum or Plasma (test code = 2345-7) Urea nitrogen [Mass/volume] 11 mg/dL 8-27 in Serum or Plasma (test code = 3094-0) Creatinine [Mass/volume] in 0.61 mg/dL 0.57-1.00 Serum or Plasma (test code = 2160-0) Glomerular filtration 94 mL/min/1.73 >59 rate/1.73 sq M.predicted among non-blacks [Volume Rate/Area] in Serum, Plasma or Blood by Creatinine-based formula (CKD-EPI) (test code = 36230-9) Glomerular filtration 108 mL/min/1.73 >59 rate/1.73 sq M.predicted among blacks [Volume Rate/Area] in Serum, Plasma or Blood by Creatinine-based formula (CKD-EPI) (test code = 74253-3) Urea nitrogen/Creatinine 18 12-28 [Mass Ratio] in Serum or Plasma (test code = 3097-3) Sodium [Moles/volume] in 138 mmol/L 134-144 Serum or Plasma (test code = 2951-2) Potassium [Moles/volume] in 4.7 mmol/L 3.5-5.2 Serum or Plasma (test code = 2823-3) Chloride [Moles/volume] in 100 mmol/L 96-106 Serum or Plasma (test code = 2075-0) Carbon dioxide, total 25 mmol/L 20-29 [Moles/volume] in Serum or Plasma (test code = 2027-9) Calcium [Mass/volume] in 9.5 mg/dL 8.7-10.3 Serum or Plasma (test code = 90388-1) Protein [Mass/volume] in 7.4 g/dL 6.0-8.5 Serum or Plasma (test code = 2885-2) Albumin [Mass/volume] in 3.9 g/dL 3.8-4.8 Serum or Plasma (test code = 1751-7) Globulin [Mass/volume] in 3.5 g/dL 1.5-4.5 Serum by calculation (test code = 26847-1) Albumin/Globulin [Mass Ratio] 1.1 1.2-2.2 L in Serum or Plasma (test code = 1759-0) Bilirubin.total [Mass/volume] 0.2 mg/dL 0.0-1.2 in Serum or Plasma (test code = 1975-2) Alkaline phosphatase 77 IU/L 44-121 [Enzymatic activity/volume] in Serum or Plasma (test code = 6768-6) Aspartate aminotransferase 36 IU/L 0-40 [Enzymatic activity/volume] in Serum or Plasma (test code = 1920-8) Alanine aminotransferase 34 IU/L 0-32 H [Enzymatic activity/volume] in Serum or Plasma (test code = 1742-6) [facility] [Mass/volume] in Serum or [id number] 00:00:00 Test Item Value Reference Range Interpretation Comments Iron binding capacity [Mass/volume] 505 ug/dL 250-450 H in Serum or Plasma (test code = 2500-7) Iron binding capacity.unsaturated 485 ug/dL 118-369 H [Mass/volume] in Serum or Plasma (test code = 2501-5) Iron [Mass/volume] in Serum or 20 ug/dL 27-139 L Plasma (test code = 2498-4) Iron saturation [Mass Fraction] in 4 % 15-55 L Serum or Plasma (test code = 2502-3) [facility]Folate+Cyanocobalamin [Interpretation] in Serum or [id number] 00:00:00 Test Item Value Reference Range Interpretation Comments Cobalamin (Vitamin B12) 831 pg/mL 232-1245 [Mass/volume] in Serum or Plasma (test code = 2132-9) Folate [Mass/volume] in Serum or 6.5 NG/mL >3.0 Plasma (test code = 2284-8) [facility] CampusHemoglobin A1c/Hemoglobin.total in Blood 2021-10-01 00:00:00 Test Item Value Reference Range Interpretation Comments Hemoglobin A1c/Hemoglobin.total in 7.4 % 4.8-5.6 H Blood (test code = 4548-4) [facility]Thyroxine (T4) free [Mass/volume] in Serum or [id number] 00:00:00 Test Item Value Reference Range Interpretation Comments Thyroxine (T4) free [Mass/volume] 1.45 NG/dL 0.82-1.77 in Serum or Plasma (test code = 3024-7) [facility]Thyrotropin [Units/volume] in Serum or Plasma by Detection limit <= 0.005 mIU/[id number] 00:00:00 Test Item Value Reference Range Interpretation Comments Thyrotropin [Units/volume] in 0.558 uIU/mL 0.450-4.500 Serum or Plasma by Detection limit <= 0.005 mIU/L (test code = 35030-2) [facility] W Auto Differential panel - [id number] 00:00:00 Test Item Value Reference Range Interpretation Comments Leukocytes [#/volume] in Blood 7.8 x10e3/uL 3.4-10.8 by Automated count (test code = 6690-2) Erythrocytes [#/volume] in 4.37 x10e6/uL 3.77-5.28 Blood by Automated count (test code = 789-8) Hemoglobin [Mass/volume] in 10.4 g/dL 11.1-15.9 L Blood (test code = 718-7) Hematocrit [Volume Fraction] of 31.6 % 34.0-46.6 L Blood by Automated count (test code = 4544-3) Erythrocyte mean corpuscular 72 fL 79-97 L volume [Entitic volume] by Automated count (test code = 787-2) Erythrocyte mean corpuscular 23.8 pg 26.6-33.0 L hemoglobin [Entitic mass] by Automated count (test code = 785-6) Erythrocyte mean corpuscular 32.9 g/dL 31.5-35.7 hemoglobin concentration [Mass/volume] by Automated count (test code = 786-4) Erythrocyte distribution width 14.6 % 11.7-15.4 [Ratio] by Automated count (test code = 788-0) Platelets [#/volume] in Blood 490 x10e3/uL 150-450 H by Automated count (test code = 777-3) Neutrophils/100 leukocytes in 54 % not estab. Blood by Automated count (test code = 770-8) Lymphocytes/100 leukocytes in 34 % not estab. Blood by Automated count (test code = 736-9) Monocytes/100 leukocytes in 10 % not estab. Blood by Automated count (test code = 5905-5) Eosinophils/100 leukocytes in 1 % not estab. Blood by Automated count (test code = 713-8) Basophils/100 leukocytes in 1 % not estab. Blood by Automated count (test code = 706-2) immature cells (test code = pole shaver helper immature cells) Neutrophils [#/volume] in Blood 4.2 x10e3/uL 1.4-7.0 by Automated count (test code = 751-8) Lymphocytes [#/volume] in Blood 2.6 x10e3/uL 0.7-3.1 by Automated count (test code = 731-0) Monocytes [#/volume] in Blood 0.7 x10e3/uL 0.1-0.9 by Automated count (test code = 742-7) Eosinophils [#/volume] in Blood 0.1 x10e3/uL 0.0-0.4 by Automated count (test code = 711-2) Basophils [#/volume] in Blood 0.1 x10e3/uL 0.0-0.2 by Automated count (test code = 704-7) Immature granulocytes/100 0 % not estab. leukocytes in Blood by Automated count (test code = 97985-3) Immature granulocytes 0.0 x10e3/uL 0.0-0.1 [#/volume] in Blood by Automated count (test code = 39935-5) Nucleated erythrocytes/100 pole shaver helper leukocytes [Ratio] in Blood by Automated count (test code = 61038-2) Morphology [Interpretation] in pole shaver helper Blood Narrative (test code = 47447-1) [facility]Com[facility] 2000 [facility] - Serum or [id number] 00:00:00 Test Item Value Reference Range Interpretation Comments Glucose [Mass/volume] in 189 mg/dL 65-99 H Serum or Plasma (test code = 2345-7) Urea nitrogen [Mass/volume] 11 mg/dL 8-27 in Serum or Plasma (test code = 3094-0) Creatinine [Mass/volume] in 0.61 mg/dL 0.57-1.00 Serum or Plasma (test code = 2160-0) Glomerular filtration 94 mL/min/1.73 >59 rate/1.73 sq M.predicted among non-blacks [Volume Rate/Area] in Serum, Plasma or Blood by Creatinine-based formula (CKD-EPI) (test code = 59360-4) Glomerular filtration 108 mL/min/1.73 >59 rate/1.73 sq M.predicted among blacks [Volume Rate/Area] in Serum, Plasma or Blood by Creatinine-based formula (CKD-EPI) (test code = 81014-8) Urea nitrogen/Creatinine 18 12-28 [Mass Ratio] in Serum or Plasma (test code = 3097-3) Sodium [Moles/volume] in 138 mmol/L 134-144 Serum or Plasma (test code = 2951-2) Potassium [Moles/volume] in 4.7 mmol/L 3.5-5.2 Serum or Plasma (test code = 2823-3) Chloride [Moles/volume] in 100 mmol/L 96-106 Serum or Plasma (test code = 2074-0) Carbon dioxide, total 25 mmol/L 20-29 [Moles/volume] in Serum or Plasma (test code = 2027-9) Calcium [Mass/volume] in 9.5 mg/dL 8.7-10.3 Serum or Plasma (test code = 05030-6) Protein [Mass/volume] in 7.4 g/dL 6.0-8.5 Serum or Plasma (test code = 2885-2) Albumin [Mass/volume] in 3.9 g/dL 3.8-4.8 Serum or Plasma (test code = 1751-7) Globulin [Mass/volume] in 3.5 g/dL 1.5-4.5 Serum by calculation (test code = 05294-1) Albumin/Globulin [Mass Ratio] 1.1 1.2-2.2 L in Serum or Plasma (test code = 1759-0) Bilirubin.total [Mass/volume] 0.2 mg/dL 0.0-1.2 in Serum or Plasma (test code = 1974-2) Alkaline phosphatase 77 IU/L 44-121 [Enzymatic activity/volume] in Serum or Plasma (test code = 6768-6) Aspartate aminotransferase 36 IU/L 0-40 [Enzymatic activity/volume] in Serum or Plasma (test code = 1920-8) Alanine aminotransferase 34 IU/L 0-32 H [Enzymatic activity/volume] in Serum or Plasma (test code = 1742-6) [facility]Iron [facility] [Mass/volume] in Serum or [id number] 00:00:00 Test Item Value Reference Range Interpretation Comments Iron binding capacity [Mass/volume] 505 ug/dL 250-450 H in Serum or Plasma (test code = 2500-7) Iron binding capacity.unsaturated 485 ug/dL 118-369 H [Mass/volume] in Serum or Plasma (test code = 2501-5) Iron [Mass/volume] in Serum or 20 ug/dL 27-139 L Plasma (test code = 2498-4) Iron saturation [Mass Fraction] in 4 % 15-55 L Serum or Plasma (test code = 2502-3) [facility]Folate+Cyanocobalamin [Interpretation] in Serum or [id number] 00:00:00 Test Item Value Reference Range Interpretation Comments Cobalamin (Vitamin B12) 831 pg/mL 232-1245 [Mass/volume] in Serum or Plasma (test code = 2132-9) Folate [Mass/volume] in Serum or 6.5 NG/mL >3.0 Plasma (test code = 2284-8) [facility] CampusHemoglobin A1c/Hemoglobin.total in Blood 2021-10-01 00:00:00 Test Item Value Reference Range Interpretation Comments Hemoglobin A1c/Hemoglobin.total in 7.4 % 4.8-5.6 H Blood (test code = 4548-4) [facility] CampusThyroxine (T4) free [Mass/volume] in Serum or [id number] 00:00:00 Test Item Value Reference Range Interpretation Comments Thyroxine (T4) free [Mass/volume] 1.45 NG/dL 0.82-1.77 in Serum or Plasma (test code = 3024-7) [facility] CampusThyrotropin [Units/volume] in Serum or Plasma by Detection limit <= 0.005 mIU/[id number] 00:00:00 Test Item Value Reference Range Interpretation Comments Thyrotropin [Units/volume] in 0.558 uIU/mL 0.450-4.500 Serum or Plasma by Detection limit <= 0.005 mIU/L (test code = 24351-2) [facility] CampusUrinalysis macro (dipstick) panel - Urine 2021-08-05 10:22:00 Test Item Value Reference Range Interpretation Comments Leukocytes (test code = Leukocytes) Trace Nitrite (test code = Nitrite) negative Urobilinogen (test code = .2 Urobilinogen) Protein (test code = Protein) 30 pH (test code = pH) 7.5 Blood (test code = Blood) Negative Specific [place] (test code = 1.005 Specific [place]) Ketone (test code = Ketone) Negative Bilirubin (test code = Bilirubin) Small Glucose (test code = Glucose) Negative Appearance (test code = Appearance) Clear Color (test code = Color) Yellow [facility]-CoV-2 (COVID-19) Ag [Presence] in Respiratory specimen by Rapid [id number] 16:36:00 Test Item Value Reference Range Interpretation Comments SARS CoV 2 (test code = SARS CoV 2) positive [facility]rapid strep group A, [id number] 11:03:00 Test Item Value Reference Range Interpretation Comments Strep (test code = Strep) negative [facility] flu (A+B)2021-04-15 11:03:00 Test Item Value Reference Range Interpretation Comments FLU A (test code = FLU A) positive FLU B (test code = FLU B) [facility] Ag [Presence] in Respiratory specimen by Rapid [id number] 11:03:00 Test Item Value Reference Range Interpretation Comments SARS CoV 2 (test code = SARS CoV 2) [facility], [id number] 11:03:00 Test Item Value Reference Range Interpretation Comments Strep (test code = Strep) negative [facility] (A+B)2021-04-15 11:03:00 Test Item Value Reference Range Interpretation Comments FLU A (test code = FLU A) positive FLU B (test code = FLU B) negative [facility]SARS[facility] ([facility]OVID-19) Ag [Presence] in Respiratory specimen by Rapid [id number] 11:03:00 Test Item Value Reference Range Interpretation Comments SARS CoV 2 (test code = SARS CoV 2) negative [facility]iron + TIBC + ferritin, [id number] 00:00:00 Test Item Value Reference Range Interpretation Comments Iron binding capacity [Mass/volume] 549 ug/dL 250-450 H in Serum or Plasma (test code = 2500-7) Iron binding capacity.unsaturated 531 ug/dL 118-369 H [Mass/volume] in Serum or Plasma (test code = 2501-5) Iron [Mass/volume] in Serum or 18 ug/dL 27-139 L Plasma (test code = 2498-4) Iron saturation [Mass Fraction] in 3 % 15-55 L Serum or Plasma (test code = 2502-3) Ferritin [Mass/volume] in Serum or 8 NG/mL 15-150 L Plasma (test code = 2276-4) [facility] W Auto Differential panel - [id number] 00:00:00 Test Item Value Reference Range Interpretation Comments Leukocytes [#/volume] in Blood 9.9 x10e3/uL 3.4-10.8 by Automated count (test code = 6690-2) Erythrocytes [#/volume] in 4.02 x10e6/uL 3.77-5.28 Blood by Automated count (test code = 789-8) Hemoglobin [Mass/volume] in 8.9 g/dL 11.1-15.9 L Blood (test code = 718-7) Hematocrit [Volume Fraction] of 27.1 % 34.0-46.6 L Blood by Automated count (test code = 4544-3) Erythrocyte mean corpuscular 67 fL 79-97 L volume [Entitic volume] by Automated count (test code = 787-2) Erythrocyte mean corpuscular 22.1 pg 26.6-33.0 L hemoglobin [Entitic mass] by Automated count (test code = 785-6) Erythrocyte mean corpuscular 32.8 g/dL 31.5-35.7 hemoglobin concentration [Mass/volume] by Automated count (test code = 786-4) Erythrocyte distribution width 15.4 % 11.7-15.4 [Ratio] by Automated count (test code = 788-0) Platelets [#/volume] in Blood 498 x10e3/uL 150-450 H by Automated count (test code = 777-3) Neutrophils/100 leukocytes in 53 % not estab. Blood by Automated count (test code = 770-8) Lymphocytes/100 leukocytes in 34 % not estab. Blood by Automated count (test code = 736-9) Monocytes/100 leukocytes in 11 % not estab. Blood by Automated count (test code = 5905-5) Eosinophils/100 leukocytes in 1 % not estab. Blood by Automated count (test code = 713-8) Basophils/100 leukocytes in 1 % not estab. Blood by Automated count (test code = 706-2) immature cells (test code = pole shaver helper immature cells) Neutrophils [#/volume] in Blood 5.2 x10e3/uL 1.4-7.0 by Automated count (test code = 751-8) Lymphocytes [#/volume] in Blood 3.3 x10e3/uL 0.7-3.1 H by Automated count (test code = 731-0) Monocytes [#/volume] in Blood 1.1 x10e3/uL 0.1-0.9 H by Automated count (test code = 742-7) Eosinophils [#/volume] in Blood 0.1 x10e3/uL 0.0-0.4 by Automated count (test code = 711-2) Basophils [#/volume] in Blood 0.1 x10e3/uL 0.0-0.2 by Automated count (test code = 704-7) Immature granulocytes/100 0 % not estab. leukocytes in Blood by Automated count (test code = 66394-5) Immature granulocytes 0.0 x10e3/uL 0.0-0.1 [#/volume] in Blood by Automated count (test code = 65472-5) Nucleated erythrocytes/100 pole shaver helper leukocytes [Ratio] in Blood by Automated count (test code = 08568-7) Morphology [Interpretation] in pole shaver helper Blood Narrative (test code = 38614-5) [facility] CampusFolate+Cyanocobalamin [Interpretation] in Serum or [id number] 00:00:00 Test Item Value Reference Range Interpretation Comments Cobalamin (Vitamin B12) 1338 pg/mL 232-1245 H [Mass/volume] in Serum or Plasma (test code = 2132-9) Folate [Mass/volume] in Serum or 9.3 NG/mL >3.0 Plasma (test code = 2284-8) [facility] CampusThyroglobulin Ab [Units/volume] in Serum or [id number] 00:00:00 Test Item Value Reference Range Interpretation Comments Thyroglobulin Ab [Units/volume] in <1.0 0.0-0.9 Serum (test code = 8098-6) [facility] CampusThyroperoxidase Ab [Units/volume] in Serum or [id number] 00:00:00 Test Item Value Reference Range Interpretation Comments Thyroperoxidase Ab [Units/volume] in 9 IU/mL 0-34 Serum (test code = 8099-4) [facility] W Auto Differential panel - [id number] 00:00:00 Test Item Value Reference Range Interpretation Comments Leukocytes [#/volume] in Blood 8.3 x10e3/uL 3.4-10.8 by Automated count (test code = 6690-2) Erythrocytes [#/volume] in 4.19 x10e6/uL 3.77-5.28 Blood by Automated count (test code = 789-8) Hemoglobin [Mass/volume] in 9.5 g/dL 11.1-15.9 L Blood (test code = 718-7) Hematocrit [Volume Fraction] of 30.4 % 34.0-46.6 L Blood by Automated count (test code = 4544-3) Erythrocyte mean corpuscular 73 fL 79-97 L volume [Entitic volume] by Automated count (test code = 787-2) Erythrocyte mean corpuscular 22.7 pg 26.6-33.0 L hemoglobin [Entitic mass] by Automated count (test code = 785-6) Erythrocyte mean corpuscular 31.3 g/dL 31.5-35.7 L hemoglobin concentration [Mass/volume] by Automated count (test code = 786-4) Erythrocyte distribution width 15.1 % 11.7-15.4 [Ratio] by Automated count (test code = 788-0) Platelets [#/volume] in Blood 490 x10e3/uL 150-450 H by Automated count (test code = 777-3) Neutrophils/100 leukocytes in 53 % not estab. Blood by Automated count (test code = 770-8) Lymphocytes/100 leukocytes in 36 % not estab. Blood by Automated count (test code = 736-9) Monocytes/100 leukocytes in 8 % not estab. Blood by Automated count (test code = 5905-5) Eosinophils/100 leukocytes in 2 % not estab. Blood by Automated count (test code = 713-8) Basophils/100 leukocytes in 1 % not estab. Blood by Automated count (test code = 706-2) immature cells (test code = pole shaver helper immature cells) Neutrophils [#/volume] in Blood 4.4 x10e3/uL 1.4-7.0 by Automated count (test code = 751-8) Lymphocytes [#/volume] in Blood 3.0 x10e3/uL 0.7-3.1 by Automated count (test code = 731-0) Monocytes [#/volume] in Blood 0.7 x10e3/uL 0.1-0.9 by Automated count (test code = 742-7) Eosinophils [#/volume] in Blood 0.2 x10e3/uL 0.0-0.4 by Automated count (test code = 711-2) Basophils [#/volume] in Blood 0.1 x10e3/uL 0.0-0.2 by Automated count (test code = 704-7) Immature granulocytes/100 0 % not estab. leukocytes in Blood by Automated count (test code = 45663-9) Immature granulocytes 0.0 x10e3/uL 0.0-0.1 [#/volume] in Blood by Automated count (test code = 19045-0) Nucleated erythrocytes/100 pole shaver helper leukocytes [Ratio] in Blood by Automated count (test code = 48165-9) Morphology [Interpretation] in pole shaver helper Blood Narrative (test code = 83508-7) [facility]Com[facility] 2000 [facility] - Serum or [id number] 00:00:00 Test Item Value Reference Range Interpretation Comments Glucose [Mass/volume] in 146 mg/dL 65-99 H Serum or Plasma (test code = 2345-7) Urea nitrogen [Mass/volume] 12 mg/dL 8-27 in Serum or Plasma (test code = 3094-0) Creatinine [Mass/volume] in 0.67 mg/dL 0.57-1.00 Serum or Plasma (test code = 2160-0) Glomerular filtration 92 mL/min/1.73 >59 rate/1.73 sq M.predicted among non-blacks [Volume Rate/Area] in Serum, Plasma or Blood by Creatinine-based formula (CKD-EPI) (test code = 28575-5) Glomerular filtration 106 mL/min/1.73 >59 rate/1.73 sq M.predicted among blacks [Volume Rate/Area] in Serum, Plasma or Blood by Creatinine-based formula (CKD-EPI) (test code = 72752-0) Urea nitrogen/Creatinine 18 12-28 [Mass Ratio] in Serum or Plasma (test code = 3097-3) Sodium [Moles/volume] in 139 mmol/L 134-144 Serum or Plasma (test code = 2951-2) Potassium [Moles/volume] in 4.3 mmol/L 3.5-5.2 Serum or Plasma (test code = 2823-3) Chloride [Moles/volume] in 101 mmol/L 96-106 Serum or Plasma (test code = 2074-0) Carbon dioxide, total 23 mmol/L 20-29 [Moles/volume] in Serum or Plasma (test code = 2027-9) Calcium [Mass/volume] in 9.5 mg/dL 8.7-10.3 Serum or Plasma (test code = 81827-7) Protein [Mass/volume] in 7.7 g/dL 6.0-8.5 Serum or Plasma (test code = 2885-2) Albumin [Mass/volume] in 4.1 g/dL 3.8-4.8 Serum or Plasma (test code = 1751-7) Globulin [Mass/volume] in 3.6 g/dL 1.5-4.5 Serum by calculation (test code = 49835-4) Albumin/Globulin [Mass Ratio] 1.1 1.2-2.2 L in Serum or Plasma (test code = 1759-0) Bilirubin.total [Mass/volume] <0.2 0.0-1.2 in Serum or Plasma (test code = 1974-) Alkaline phosphatase 70 IU/L 48-121 [Enzymatic activity/volume] in Serum or Plasma (test code = 6768-6) Aspartate aminotransferase 36 IU/L 0-40 [Enzymatic activity/volume] in Serum or Plasma (test code = 1920-8) Alanine aminotransferase 32 IU/L 0-32 [Enzymatic activity/volume] in Serum or Plasma (test code = 1742-6) [facility]Lip[facility] 1996 panel - Serum or [id number] 00:00:00 Test Item Value Reference Range Interpretation Comments Cholesterol [Mass/volume] in Serum 168 mg/dL 100-199 or Plasma (test code = 2093-3) Triglyceride [Mass/volume] in Serum 77 mg/dL 0-149 or Plasma (test code = 2571-8) Cholesterol in HDL [Mass/volume] in 60 mg/dL >39 Serum or Plasma (test code = 2085-9) Cholesterol in VLDL [Mass/volume] 15 mg/dL 5-40 in Serum or Plasma by calculation (test code = 34848-5) Cholesterol in LDL [Mass/volume] in 93 mg/dL 0-99 Serum or Plasma by calculation (test code = 31521-1) Laboratory comment [Text] in Report pole shaver helper Narrative (test code = 03015-3) Cholesterol in LDL/Cholesterol in 1.6 ratio 0.0-3.2 HDL [Mass Ratio] in Serum or Plasma (test code = 28797-4) [facility] CampusAlbumin/Creatinine [Mass Ratio] in Urine 2021-03-26 00:00:00 Test Item Value Reference Range Interpretation Comments Creatinine [Mass/volume] in 251.3 mg/dL not estab. Urine (test code = 2161-8) Microalbumin [Mass/volume] in 19.5 ug/mL not estab. Urine (test code = 14748-3) Albumin/Creatinine [Mass ratio] 8 mg/g creat 0-29 in Urine (test code = 9318-7) [facility] CampusThyroxine (T4) free [Mass/volume] in Serum or [id number] 00:00:00 Test Item Value Reference Range Interpretation Comments Thyroxine (T4) free [Mass/volume] 1.61 NG/dL 0.82-1.77 in Serum or Plasma (test code = 3024-7) [facility] CampusThyrotropin [Units/volume] in Serum or Plasma by Detection limit <= 0.005 mIU/[id number] 00:00:00 Test Item Value Reference Range Interpretation Comments Thyrotropin [Units/volume] in 0.434 uIU/mL 0.450-4.500 L Serum or Plasma by Detection limit <= 0.005 mIU/L (test code = 83336-1) [facility]25-Hydroxyvitamin D3+25-Hydroxyvitamin D2 [Mass/volume] in Serum or [id number] 00:00:00 Test Item Value Reference Range Interpretation Comments 25-Hydroxyvitamin 34.8 NG/mL 30.0-100.0 D3+25-Hydroxyvitamin D2 [Mass/volume] in Serum or Plasma (test code = 54897-6) [facility] W Auto Differential panel - [id number] 00:00:00 Test Item Value Reference Range Interpretation Comments Leukocytes [#/volume] in Blood 8.3 x10e3/uL 3.4-10.8 by Automated count (test code = 6690-2) Erythrocytes [#/volume] in 4.19 x10e6/uL 3.77-5.28 Blood by Automated count (test code = 789-8) Hemoglobin [Mass/volume] in 9.5 g/dL 11.1-15.9 L Blood (test code = 718-7) Hematocrit [Volume Fraction] of 30.4 % 34.0-46.6 L Blood by Automated count (test code = 4544-3) Erythrocyte mean corpuscular 73 fL 79-97 L volume [Entitic volume] by Automated count (test code = 787-2) Erythrocyte mean corpuscular 22.7 pg 26.6-33.0 L hemoglobin [Entitic mass] by Automated count (test code = 785-6) Erythrocyte mean corpuscular 31.3 g/dL 31.5-35.7 L hemoglobin concentration [Mass/volume] by Automated count (test code = 786-4) Erythrocyte distribution width 15.1 % 11.7-15.4 [Ratio] by Automated count (test code = 788-0) Platelets [#/volume] in Blood 490 x10e3/uL 150-450 H by Automated count (test code = 777-3) Neutrophils/100 leukocytes in 53 % not estab. Blood by Automated count (test code = 770-8) Lymphocytes/100 leukocytes in 36 % not estab. Blood by Automated count (test code = 736-9) Monocytes/100 leukocytes in 8 % not estab. Blood by Automated count (test code = 5905-5) Eosinophils/100 leukocytes in 2 % not estab. Blood by Automated count (test code = 713-8) Basophils/100 leukocytes in 1 % not estab. Blood by Automated count (test code = 706-2) immature cells (test code = pole shaver helper immature cells) Neutrophils [#/volume] in Blood 4.4 x10e3/uL 1.4-7.0 by Automated count (test code = 751-8) Lymphocytes [#/volume] in Blood 3.0 x10e3/uL 0.7-3.1 by Automated count (test code = 731-0) Monocytes [#/volume] in Blood 0.7 x10e3/uL 0.1-0.9 by Automated count (test code = 742-7) Eosinophils [#/volume] in Blood 0.2 x10e3/uL 0.0-0.4 by Automated count (test code = 711-2) Basophils [#/volume] in Blood 0.1 x10e3/uL 0.0-0.2 by Automated count (test code = 704-7) Immature granulocytes/100 0 % not estab. leukocytes in Blood by Automated count (test code = 38257-2) Immature granulocytes 0.0 x10e3/uL 0.0-0.1 [#/volume] in Blood by Automated count (test code = 52768-1) Nucleated erythrocytes/100 pole shaver helper leukocytes [Ratio] in Blood by Automated count (test code = 25399-5) Morphology [Interpretation] in pole shaver helper Blood Narrative (test code = 90411-7) [facility] - Serum or [id number] 00:00:00 Test Item Value Reference Range Interpretation Comments Glucose [Mass/volume] in 146 mg/dL 65-99 H Serum or Plasma (test code = 2345-7) Urea nitrogen [Mass/volume] 12 mg/dL 8-27 in Serum or Plasma (test code = 3094-0) Creatinine [Mass/volume] in 0.67 mg/dL 0.57-1.00 Serum or Plasma (test code = 2160-0) Glomerular filtration 92 mL/min/1.73 >59 rate/1.73 sq M.predicted among non-blacks [Volume Rate/Area] in Serum, Plasma or Blood by Creatinine-based formula (CKD-EPI) (test code = 47286-1) Glomerular filtration 106 mL/min/1.73 >59 rate/1.73 sq M.predicted among blacks [Volume Rate/Area] in Serum, Plasma or Blood by Creatinine-based formula (CKD-EPI) (test code = 81059-2) Urea nitrogen/Creatinine 18 12-28 [Mass Ratio] in Serum or Plasma (test code = 3097-3) Sodium [Moles/volume] in 139 mmol/L 134-144 Serum or Plasma (test code = 2951-2) Potassium [Moles/volume] in 4.3 mmol/L 3.5-5.2 Serum or Plasma (test code = 2823-3) Chloride [Moles/volume] in 101 mmol/L 96-106 Serum or Plasma (test code = 5-0) Carbon dioxide, total 23 mmol/L 20-29 [Moles/volume] in Serum or Plasma (test code = 2027-9) Calcium [Mass/volume] in 9.5 mg/dL 8.7-10.3 Serum or Plasma (test code = 44105-5) Protein [Mass/volume] in 7.7 g/dL 6.0-8.5 Serum or Plasma (test code = 2885-2) Albumin [Mass/volume] in 4.1 g/dL 3.8-4.8 Serum or Plasma (test code = 1751-7) Globulin [Mass/volume] in 3.6 g/dL 1.5-4.5 Serum by calculation (test code = 89865-1) Albumin/Globulin [Mass Ratio] 1.1 1.2-2.2 L in Serum or Plasma (test code = 1759-0) Bilirubin.total [Mass/volume] <0.2 0.0-1.2 in Serum or Plasma (test code = 1974-2) Alkaline phosphatase 70 IU/L 48-121 [Enzymatic activity/volume] in Serum or Plasma (test code = 6768-6) Aspartate aminotransferase 36 IU/L 0-40 [Enzymatic activity/volume] in Serum or Plasma (test code = 1920-8) Alanine aminotransferase 32 IU/L 0-32 [Enzymatic activity/volume] in Serum or Plasma (test code = 1742-6) [facility] - [facility] or [id number] 00:00:00 Test Item Value Reference Range Interpretation Comments Cholesterol [Mass/volume] in Serum 168 mg/dL 100-199 or Plasma (test code = 2093-3) Triglyceride [Mass/volume] in Serum 77 mg/dL 0-149 or Plasma (test code = 2571-8) Cholesterol in HDL [Mass/volume] in 60 mg/dL >39 Serum or Plasma (test code = 2085-9) Cholesterol in VLDL [Mass/volume] 15 mg/dL 5-40 in Serum or Plasma by calculation (test code = 73547-9) Cholesterol in LDL [Mass/volume] in 93 mg/dL 0-99 Serum or Plasma by calculation (test code = 94901-7) Laboratory comment [Text] in Report pole shaver helper Narrative (test code = 67188-4) Cholesterol in LDL/Cholesterol in 1.6 ratio 0.0-3.2 HDL [Mass Ratio] in Serum or Plasma (test code = 26336-7) [facility] [Mass Ratio] in Urine 2021-03-26 00:00:00 Test Item Value Reference Range Interpretation Comments Creatinine [Mass/volume] in 251.3 mg/dL not estab. Urine (test code = 2161-8) Microalbumin [Mass/volume] in 19.5 ug/mL not estab. Urine (test code = 74669-2) Albumin/Creatinine [Mass ratio] 8 mg/g creat 0-29 in Urine (test code = 9318-7) [facility]T4[facility] free [Mass/volume] in Serum or [id number] 00:00:00 Test Item Value Reference Range Interpretation Comments Thyroxine (T4) free [Mass/volume] 1.61 NG/dL 0.82-1.77 in Serum or Plasma (test code = 3024-7) [facility]yrotropin [Units/volume] in Serum or Plasma by Detection limit <= 0.005 mIU/[id number] 00:00:00 Test Item Value Reference Range Interpretation Comments Thyrotropin [Units/volume] in 0.434 uIU/mL 0.450-4.500 L Serum or Plasma by Detection limit <= 0.005 mIU/L (test code = 54600-5) [facility]25-Hydroxyvitamin D3+25-Hydroxyvitamin D2 [Mass/volume] in Serum or [id number] 00:00:00 Test Item Value Reference Range Interpretation Comments 25-Hydroxyvitamin 34.8 NG/mL 30.0-100.0 D3+25-Hydroxyvitamin D2 [Mass/volume] in Serum or Plasma (test code = 72287-1) [facility] W Auto Differential panel - [id number] 00:00:00 Test Item Value Reference Range Interpretation Comments Leukocytes [#/volume] in Blood 8.3 x10e3/uL 3.4-10.8 by Automated count (test code = 6690-2) Erythrocytes [#/volume] in 4.19 x10e6/uL 3.77-5.28 Blood by Automated count (test code = 789-8) Hemoglobin [Mass/volume] in 9.5 g/dL 11.1-15.9 L Blood (test code = 718-7) Hematocrit [Volume Fraction] of 30.4 % 34.0-46.6 L Blood by Automated count (test code = 4544-3) Erythrocyte mean corpuscular 73 fL 79-97 L volume [Entitic volume] by Automated count (test code = 787-2) Erythrocyte mean corpuscular 22.7 pg 26.6-33.0 L hemoglobin [Entitic mass] by Automated count (test code = 785-6) Erythrocyte mean corpuscular 31.3 g/dL 31.5-35.7 L hemoglobin concentration [Mass/volume] by Automated count (test code = 786-4) Erythrocyte distribution width 15.1 % 11.7-15.4 [Ratio] by Automated count (test code = 788-0) Platelets [#/volume] in Blood 490 x10e3/uL 150-450 H by Automated count (test code = 777-3) Neutrophils/100 leukocytes in 53 % not estab. Blood by Automated count (test code = 770-8) Lymphocytes/100 leukocytes in 36 % not estab. Blood by Automated count (test code = 736-9) Monocytes/100 leukocytes in 8 % not estab. Blood by Automated count (test code = 5905-5) Eosinophils/100 leukocytes in 2 % not estab. Blood by Automated count (test code = 713-8) Basophils/100 leukocytes in 1 % not estab. Blood by Automated count (test code = 706-2) immature cells (test code = pole shaver helper immature cells) Neutrophils [#/volume] in Blood 4.4 x10e3/uL 1.4-7.0 by Automated count (test code = 751-8) Lymphocytes [#/volume] in Blood 3.0 x10e3/uL 0.7-3.1 by Automated count (test code = 731-0) Monocytes [#/volume] in Blood 0.7 x10e3/uL 0.1-0.9 by Automated count (test code = 742-7) Eosinophils [#/volume] in Blood 0.2 x10e3/uL 0.0-0.4 by Automated count (test code = 711-2) Basophils [#/volume] in Blood 0.1 x10e3/uL 0.0-0.2 by Automated count (test code = 704-7) Immature granulocytes/100 0 % not estab. leukocytes in Blood by Automated count (test code = 33547-9) Immature granulocytes 0.0 x10e3/uL 0.0-0.1 [#/volume] in Blood by Automated count (test code = 58813-6) Nucleated erythrocytes/100 pole shaver helper leukocytes [Ratio] in Blood by Automated count (test code = 01097-7) Morphology [Interpretation] in pole shaver helper Blood Narrative (test code = 04034-4) [facility] - Serum or [id number] 00:00:00 Test Item Value Reference Range Interpretation Comments Glucose [Mass/volume] in 146 mg/dL 65-99 H Serum or Plasma (test code = 2345-7) Urea nitrogen [Mass/volume] 12 mg/dL 8-27 in Serum or Plasma (test code = 3094-0) Creatinine [Mass/volume] in 0.67 mg/dL 0.57-1.00 Serum or Plasma (test code = 2160-0) Glomerular filtration 92 mL/min/1.73 >59 rate/1.73 sq M.predicted among non-blacks [Volume Rate/Area] in Serum, Plasma or Blood by Creatinine-based formula (CKD-EPI) (test code = 74414-3) Glomerular filtration 106 mL/min/1.73 >59 rate/1.73 sq M.predicted among blacks [Volume Rate/Area] in Serum, Plasma or Blood by Creatinine-based formula (CKD-EPI) (test code = 41830-1) Urea nitrogen/Creatinine 18 12-28 [Mass Ratio] in Serum or Plasma (test code = 3097-3) Sodium [Moles/volume] in 139 mmol/L 134-144 Serum or Plasma (test code = 2951-2) Potassium [Moles/volume] in 4.3 mmol/L 3.5-5.2 Serum or Plasma (test code = 2823-3) Chloride [Moles/volume] in 101 mmol/L 96-106 Serum or Plasma (test code = 2075-0) Carbon dioxide, total 23 mmol/L 20-29 [Moles/volume] in Serum or Plasma (test code = 2027-9) Calcium [Mass/volume] in 9.5 mg/dL 8.7-10.3 Serum or Plasma (test code = 63920-6) Protein [Mass/volume] in 7.7 g/dL 6.0-8.5 Serum or Plasma (test code = 2885-2) Albumin [Mass/volume] in 4.1 g/dL 3.8-4.8 Serum or Plasma (test code = 1751-7) Globulin [Mass/volume] in 3.6 g/dL 1.5-4.5 Serum by calculation (test code = 93676-5) Albumin/Globulin [Mass Ratio] 1.1 1.2-2.2 L in Serum or Plasma (test code = 1759-0) Bilirubin.total [Mass/volume] <0.2 0.0-1.2 in Serum or Plasma (test code = 1974-) Alkaline phosphatase 70 IU/L 48-121 [Enzymatic activity/volume] in Serum or Plasma (test code = 6768-6) Aspartate aminotransferase 36 IU/L 0-40 [Enzymatic activity/volume] in Serum or Plasma (test code = 192-8) Alanine aminotransferase 32 IU/L 0-32 [Enzymatic activity/volume] in Serum or Plasma (test code = 1742-6) [facility] - Serum or [id number] 00:00:00 Test Item Value Reference Range Interpretation Comments Cholesterol [Mass/volume] in Serum 168 mg/dL 100-199 or Plasma (test code = 2093-3) Triglyceride [Mass/volume] in Serum 77 mg/dL 0-149 or Plasma (test code = 2571-8) Cholesterol in HDL [Mass/volume] in 60 mg/dL >39 Serum or Plasma (test code = 2085-9) Cholesterol in VLDL [Mass/volume] 15 mg/dL 5-40 in Serum or Plasma by calculation (test code = 53493-4) Cholesterol in LDL [Mass/volume] in 93 mg/dL 0-99 Serum or Plasma by calculation (test code = 92695-7) Laboratory comment [Text] in Report pole shaver helper Narrative (test code = 74349-5) Cholesterol in LDL/Cholesterol in 1.6 ratio 0.0-3.2 HDL [Mass Ratio] in Serum or Plasma (test code = 40879-1) [facility]Creatinine [Mass Ratio] in Urine 2021-03-26 00:00:00 Test Item Value Reference Range Interpretation Comments Creatinine [Mass/volume] in 251.3 mg/dL not estab. Urine (test code = 2161-8) Microalbumin [Mass/volume] in 19.5 ug/mL not estab. Urine (test code = 30598-7) Albumin/Creatinine [Mass ratio] 8 mg/g creat 0-29 in Urine (test code = 9318-7) [facility] (T4[facility] free [Mass/volume] in Serum or [id number] 00:00:00 Test Item Value Reference Range Interpretation Comments Thyroxine (T4) free [Mass/volume] 1.61 NG/dL 0.82-1.77 in Serum or Plasma (test code = 3024-7) [facility]Thyrotropin [Units/volume] in Serum or Plasma by Detection limit <= 0.005 mIU/[id number] 00:00:00 Test Item Value Reference Range Interpretation Comments Thyrotropin [Units/volume] in 0.434 uIU/mL 0.450-4.500 L Serum or Plasma by Detection limit <= 0.005 mIU/L (test code = 71344-9) [facility]25-Hydroxyvitamin D3+25-Hydroxyvitamin D2 [Mass/volume] in Serum or [id number] 00:00:00 Test Item Value Reference Range Interpretation Comments 25-Hydroxyvitamin 34.8 NG/mL 30.0-100.0 D3+25-Hydroxyvitamin D2 [Mass/volume] in Serum or Plasma (test code = 54160-7) [facility] W Auto Differential panel - [id number] 00:00:00 Test Item Value Reference Range Interpretation Comments Leukocytes [#/volume] in Blood 8.3 x10e3/uL 3.4-10.8 by Automated count (test code = 6690-2) Erythrocytes [#/volume] in 4.19 x10e6/uL 3.77-5.28 Blood by Automated count (test code = 789-8) Hemoglobin [Mass/volume] in 9.5 g/dL 11.1-15.9 L Blood (test code = 718-7) Hematocrit [Volume Fraction] of 30.4 % 34.0-46.6 L Blood by Automated count (test code = 4544-3) Erythrocyte mean corpuscular 73 fL 79-97 L volume [Entitic volume] by Automated count (test code = 787-2) Erythrocyte mean corpuscular 22.7 pg 26.6-33.0 L hemoglobin [Entitic mass] by Automated count (test code = 785-6) Erythrocyte mean corpuscular 31.3 g/dL 31.5-35.7 L hemoglobin concentration [Mass/volume] by Automated count (test code = 786-4) Erythrocyte distribution width 15.1 % 11.7-15.4 [Ratio] by Automated count (test code = 788-0) Platelets [#/volume] in Blood 490 x10e3/uL 150-450 H by Automated count (test code = 777-3) Neutrophils/100 leukocytes in 53 % not estab. Blood by Automated count (test code = 770-8) Lymphocytes/100 leukocytes in 36 % not estab. Blood by Automated count (test code = 736-9) Monocytes/100 leukocytes in 8 % not estab. Blood by Automated count (test code = 5905-5) Eosinophils/100 leukocytes in 2 % not estab. Blood by Automated count (test code = 713-8) Basophils/100 leukocytes in 1 % not estab. Blood by Automated count (test code = 706-2) immature cells (test code = pole shaver helper immature cells) Neutrophils [#/volume] in Blood 4.4 x10e3/uL 1.4-7.0 by Automated count (test code = 751-8) Lymphocytes [#/volume] in Blood 3.0 x10e3/uL 0.7-3.1 by Automated count (test code = 731-0) Monocytes [#/volume] in Blood 0.7 x10e3/uL 0.1-0.9 by Automated count (test code = 742-7) Eosinophils [#/volume] in Blood 0.2 x10e3/uL 0.0-0.4 by Automated count (test code = 711-2) Basophils [#/volume] in Blood 0.1 x10e3/uL 0.0-0.2 by Automated count (test code = 704-7) Immature granulocytes/100 0 % not estab. leukocytes in Blood by Automated count (test code = 81941-3) Immature granulocytes 0.0 x10e3/uL 0.0-0.1 [#/volume] in Blood by Automated count (test code = 93021-1) Nucleated erythrocytes/100 pole shaver helper leukocytes [Ratio] in Blood by Automated count (test code = 20181-3) Morphology [Interpretation] in pole shaver helper Blood Narrative (test code = 21872-7) [facility] 2000 [facility] - Serum or [id number] 00:00:00 Test Item Value Reference Range Interpretation Comments Glucose [Mass/volume] in 146 mg/dL 65-99 H Serum or Plasma (test code = 2345-7) Urea nitrogen [Mass/volume] 12 mg/dL 8-27 in Serum or Plasma (test code = 3094-0) Creatinine [Mass/volume] in 0.67 mg/dL 0.57-1.00 Serum or Plasma (test code = 2160-0) Glomerular filtration 92 mL/min/1.73 >59 rate/1.73 sq M.predicted among non-blacks [Volume Rate/Area] in Serum, Plasma or Blood by Creatinine-based formula (CKD-EPI) (test code = 45124-3) Glomerular filtration 106 mL/min/1.73 >59 rate/1.73 sq M.predicted among blacks [Volume Rate/Area] in Serum, Plasma or Blood by Creatinine-based formula (CKD-EPI) (test code = 92120-7) Urea nitrogen/Creatinine 18 12-28 [Mass Ratio] in Serum or Plasma (test code = 3097-3) Sodium [Moles/volume] in 139 mmol/L 134-144 Serum or Plasma (test code = 2951-2) Potassium [Moles/volume] in 4.3 mmol/L 3.5-5.2 Serum or Plasma (test code = 2823-3) Chloride [Moles/volume] in 101 mmol/L 96-106 Serum or Plasma (test code = 2075-0) Carbon dioxide, total 23 mmol/L 20-29 [Moles/volume] in Serum or Plasma (test code = 2027-9) Calcium [Mass/volume] in 9.5 mg/dL 8.7-10.3 Serum or Plasma (test code = 30225-1) Protein [Mass/volume] in 7.7 g/dL 6.0-8.5 Serum or Plasma (test code = 2885-2) Albumin [Mass/volume] in 4.1 g/dL 3.8-4.8 Serum or Plasma (test code = 1751-7) Globulin [Mass/volume] in 3.6 g/dL 1.5-4.5 Serum by calculation (test code = 29151-9) Albumin/Globulin [Mass Ratio] 1.1 1.2-2.2 L in Serum or Plasma (test code = 1759-0) Bilirubin.total [Mass/volume] <0.2 0.0-1.2 in Serum or Plasma (test code = 1974-) Alkaline phosphatase 70 IU/L 48-121 [Enzymatic activity/volume] in Serum or Plasma (test code = 6768-6) Aspartate aminotransferase 36 IU/L 0-40 [Enzymatic activity/volume] in Serum or Plasma (test code = 1920-8) Alanine aminotransferase 32 IU/L 0-32 [Enzymatic activity/volume] in Serum or Plasma (test code = 1742-6) [facility] - Serum or [id number] 00:00:00 Test Item Value Reference Range Interpretation Comments Cholesterol [Mass/volume] in Serum 168 mg/dL 100-199 or Plasma (test code = 2093-3) Triglyceride [Mass/volume] in Serum 77 mg/dL 0-149 or Plasma (test code = 2571-8) Cholesterol in HDL [Mass/volume] in 60 mg/dL >39 Serum or Plasma (test code = 2085-9) Cholesterol in VLDL [Mass/volume] 15 mg/dL 5-40 in Serum or Plasma by calculation (test code = 70198-7) Cholesterol in LDL [Mass/volume] in 93 mg/dL 0-99 Serum or Plasma by calculation (test code = 04381-6) Laboratory comment [Text] in Report pole shaver helper Narrative (test code = 10432-7) Cholesterol in LDL/Cholesterol in 1.6 ratio 0.0-3.2 HDL [Mass Ratio] in Serum or Plasma (test code = 53563-7) [facility]Creatinine [Mass Ratio] in Urine 2021-03-26 00:00:00 Test Item Value Reference Range Interpretation Comments Creatinine [Mass/volume] in 251.3 mg/dL not estab. Urine (test code = 2161-8) Microalbumin [Mass/volume] in 19.5 ug/mL not estab. Urine (test code = 93522-3) Albumin/Creatinine [Mass ratio] 8 mg/g creat 0-29 in Urine (test code = 9318-7) [facility] (T4[facility] free [Mass/volume] in Serum or [id number] 00:00:00 Test Item Value Reference Range Interpretation Comments Thyroxine (T4) free [Mass/volume] 1.61 NG/dL 0.82-1.77 in Serum or Plasma (test code = 3024-7) [facility]Thyrotropin [Units/volume] in Serum or Plasma by Detection limit <= 0.005 mIU/[id number] 00:00:00 Test Item Value Reference Range Interpretation Comments Thyrotropin [Units/volume] in 0.434 uIU/mL 0.450-4.500 L Serum or Plasma by Detection limit <= 0.005 mIU/L (test code = 46183-1) [facility]25-Hydroxyvitamin D3+25-Hydroxyvitamin D2 [Mass/volume] in Serum or [id number] 00:00:00 Test Item Value Reference Range Interpretation Comments 25-Hydroxyvitamin 34.8 NG/mL 30.0-100.0 D3+25-Hydroxyvitamin D2 [Mass/volume] in Serum or Plasma (test code = 84873-4) [facility]
[2023-09-27] MEDS ORDERED: ONDANSETRON 4 MG/2 ML VIAL IV PRN (21:12)
[2023-09-27] MEDS ORDERED: ACETAMINOPHEN 500 MG TAB PO PRN (21:12)
[2023-09-27] MEDS ORDERED: SODIUM CHLORIDE 0.9% 10ML INJ IV PRN (21:16)
[2023-09-27] MEDS ORDERED: D50W 25 GM/50 ML SYRINGE IV PRN (21:25)
[2023-09-27] MEDS ORDERED: GLUCAGON 1 MG/VIAL IM PRN (21:25)
[2023-09-27] MEDS ORDERED: D10W 125 ML IV PRN (21:37)
--- NOTE | 2023-09-27 21:42 | P.HP ---
Certification for Inpatient Patient admitted to: Inpatient With expected LOS: >2 Midnights Patient will require the following post-hospital care: None Practitioner: I am a practitioner with admitting privileges, knowledge of patient current condition, hospital course, and medical plan of care. Services: Services provided to patient in accordance with Admission requirements found in Title 42 Section 412.3 of the Code of Federal Regulations Patient History Date of Service: 09/27/23 Reason for admission: Abdominal Pain History of Present Illness: 68 yo female with past medical history of diabetes, hypertension, hyperlipidemia , and history of cholecystectomy and hysterectomy who was transferred from [facility] where she presented with abdominal pain which started 2 to 3 days ago. Patient stated that she had upper respiratory tract kind of infection and was treated with antibiotics ( Z-Jose Antonio ) and antitussives and has been recuperating but started having abdominal pain 3 days ago. Pain is located in light lower abdomen and diffuse with no radiation. Patient was seen in [facility] and was transferred over here for further management. Patient was seen by Dr. Carvajal in that hospital. Denies any fever. No nausea vomiting or diarrhea. Denies any constipation. Had a normal bowel movement this morning. Denies any melena or hematemesis, patient denies dysuria. Denies any chest pain or shortness of breath Complains of cough, with mucoid expectoration Allergies No Known Allergies Allergy (Unverified 03/31/22 22:21) Home medications list reviewed: Yes Home Medications: Amlodipine [Norvasc*] 10 mg DAILY 03/31/22 Hum Insulin NPH/Reg Insulin Hm [Humulin 70-30 Vial] 50 units BID 03/31/22 Lovastatin 20 mg DAILY 03/31/22 Metformin HCl 1,000 mg DAILY 03/31/22 lisinopriL [Lisinopril] 20 mg DAILY 03/31/22 - Past Medical/Surgical History Diabetic: Yes Past Medical History: Reviewed- Non-Contributory -: Diabetes type 2insulin-dependent -: Hypertension -: Hyperlipidemia Past Surgical History: Reviewed- Non-Contributory -: Hysterectomy Psychosocial/ Personal History: Patient lives at home with her family - Family History Mother -: Diabetes Father -: Heart disease - Social History Smoking Status: Never smoker Alcohol use: Yes CD- Drugs: No Caffeine use: Yes Review of Systems 10-point ROS is otherwise unremarkable General: Weakness Eyes: Unremarkable ENT: Unremarkable Respiratory: Cough, Unremarkable Cardiovascular: Unremarkable Gastrointestinal: Abdominal Pain Genitourinary: Unremarkable Musculoskeletal: Unremarkable Integumentary: Unremarkable Neurological: Unremarkable Lymphatics: Unremarkable Physical Examination - Vital Signs Temperature: 98.4 F Blood Pressure: 142/78 Pulse: 74 Respirations: 18 Pulse Ox (%): 98 - Physical Exam General: Alert, In no apparent distress, Oriented x3, Obese HEENT: Atraumatic, Normocephalic Neck: Supple, No Thyromegaly Respiratory: Clear to auscultation bilaterally, Normal air movement Cardiovascular: Normal pulses, Regular rate/rhythm, Normal S1 S2 Capillary refill: <2 Seconds Gastrointestinal: No masses, No rebound, No guarding, Distended Musculoskeletal: No clubbing, No swelling Integumentary: No rashes, No tenderness/swelling Neurological: Normal gait, Normal strength at 5/5 x4 extr, Cranial nerves 3-12 intact Lymphatics: No axilla or inguinal lymphadenopathy Assessment and Plan - Problems (Diagnosis) (1) Ileus, unspecified Current Visit: Yes Status: Acute Plan: Abdominal pain Possible ileus Pain control Will get a CT of the abdomen pelvis with contrast Surgical consult appreciated IV hydration (2) Small bowel obstruction Current Visit: Yes Status: Acute Plan: SBO N.p.o. for now Surgery consulted CT abdomen pelvis awaited Will get CBC CMP IV fluids Will start on Zosyn empirically Will stop the antibiotic depending on the clinical course Protonix daily (3) Hypertension Current Visit: Yes Status: Chronic Plan: Antihypertensives titrated Hydralazine as needed for now (4) Diabetes Current Visit: Yes Status: Chronic Plan: Will hold oral antihyperglycemic agents Insulin sliding scale Accu-Chek Q 6 hours Discharge Plan: Home Plan to discharge in: 48 Hours - Advance Directives Does patient have a Living Will: No Does patient have a Durable POA for Healthcare: No - Code Status/Comfort Care Code Status Assessed: Yes Code Status: Full Code Time Spent Managing Pts Care (In Minutes): 45
[2023-09-27] MEDS: NA CHLORIDE 0.9% 1,000 ML IV SCH (22:24)
[2023-09-27] MEDS: PIPER TAZO 3.375 GM in NA CHLORIDE 0.9% 100 ML IV SCH (22:25)
[2023-09-27] MEDS: PANTOPRAZOLE 40 MG INJ IVP SCH (22:25)
[2023-09-27 22:37] VITALS: BMI 25.2
[2023-09-27] MEDS: MORPHINE 2 MG/ML SYR IV PRN (23:37)
[2023-09-28 02:10] LABS: Absolute Lymphocytes (CBC) 2.3 K/uL (0.7-4.9); Lymphocytes % 16.7 % (15.3-44.8); MCV 73.1 fL (80-100); MPV 7.3 fL (7.6-11.3); Platelets 703 thou/uL (152-406)
[2023-09-28 02:26] LABS: Albumin 2.7 g/dL (3.4-5.0); Bilirubin Total 0.3 mg/dL (0.2-1.0); Potassium 3.8 mEq/L (3.5-5.1); Protein, Total 7.3 g/dL (6.4-8.2)
[2023-09-28] MEDS: MORPHINE 2 MG/ML SYR IV PRN ×4 (02:58→21:46)
[2023-09-28] MEDS: PIPER TAZO 3.375 GM in NA CHLORIDE 0.9% 100 ML IV SCH ×3 (05:52→20:51)
[2023-09-28] MEDS: NA CHLORIDE 0.9% 1,000 ML IV SCH ×2 (05:53→17:38)
[2023-09-28] MEDS: PANTOPRAZOLE 40 MG INJ IVP SCH (09:37)
[2023-09-28] MEDS: INSULIN REGULAR (HUMAN) 100 UNIT/ML SQ SCH ×4 (09:38→21:00)
--- NOTE | 2023-09-28 10:09 | RAD REPORT ---
EXAM DESCRIPTION: CT - Abdomen Pelvis W Contrast - 09/28/2023 9:12 am CLINICAL HISTORY: SBO vs ILEUS COMPARISON: Abdomen Pelvis W Contrast dated 03/31/2022 TECHNIQUE: Thin cut axial CT imaging of the abdomen and pelvis was performed following intravenous a dministration of 100 mL Isovue 300. Multiplanar reformats were generated and reviewed. All CT scans are performed using dose optimization technique as appropriate and may include automated exposure control or mA/KV adjustment according to patient size. FINDINGS: No suspicious findings in the lung bases. The liver, spleen, adrenal glands, and pancreas show no suspicious findings. Gallbladder was surgical ly removed. Symmetric renal function is seen with no hydronephrosis or suspicious renal mass. 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 Mildly fluid distended small bowel loops throughout the central abdomen, without evidence of abrupt c aliber transition. No bowel wall thickening. Colonic diverticulosis. Mild free ascites. Thin film lik e enhancement of the parietal peritoneum particularly in the pelvis, without discrete peritoneal mass es or nodular enhancement. No free air, or discrete fluid collections, or inflammatory stranding. No hernia, mass or bulky lymphadenopathy. The urinary bladder is without significant finding. No suspicious bony findings. IMPRESSION: Mildly fluid distended small bowel loops without evidence of abrupt caliber transition, suggestive of ileus. Mild free apicitis with parietal perineum enhancement, concerning for peritonitis.
[2023-09-28 10:11] LABS: Urine Bacteria None Seen /HPF (<20); Urine Bilirubin NEGATIVE (Negative); Urine Blood Negative (Negative); Urine Clarity Clear (Clear); Urine Color Light-Yellow (Yellow); Urine Glucose NEGATIVE (Negative); Urine Protein TRACE (Negative); Urine RBC <5 /HPF (None Seen); Urine Urobilinogen Normal (Normal); Urine pH 5.5 (5.0-7.0)
[2023-09-28 10:44] LABS: Specific Gravity > 1.030 (1.005-1.030)
--- NOTE | 2023-09-28 10:46 | P.PN ---
Date of Service: 09/28/23 Subjective: Abdominal pain continues ~same no nausea/vomiting; denies melena/dysuria; no flatus no new / worsening problems afebrile ROS: 10 point ROS as noted above, otherwise negative Physical Exam: GEN: Alert, oriented, NAD HEENT: Normal conjunctiva, sclera anicteric, CV: Regular rate and rhythm, no edema Pulm: Nonlabored respirations on room air, clear bilaterally ABD: mild distention, decreased bowel sounds, mild periumbilical / RLQ tenderness Neuro: Normal speech, normal affect Problem List: Ileus vs Small bowel obstruction Cough IDDM2 Hypertension Hyperlipidemia Ileus vs Small bowel obstruction transferred from [facility]; noted abdominal pain for 2-3 days Patient seen by Dr. Carvajal at [facility] CT abdomen (09/28): findings suggestive of ileus. Mild free ascites with parietal perineum enhancement, concerning for peritonitis General surgery - Dr. Carvajal consulted reviewed repeat CT, recommends full liquid diet for now Serial abdominal exams Continue PPI PRN analgesics/antiemetics UA unremarkable IDDM2 Accu-Cheks, Insulin sliding scale Hypertension Hyperlipidemia confirm home medications, restart as appropriate Code: Full Dispo: Home, ~1-2 days Pending further improvement
[2023-09-28 13:06] VITALS: O2SAT 98
--- NOTE | 2023-09-28 13:58 | CON ---
Date of Consultation: 09/28/2023 Reason For Service: Abdominal pain. History Of Present Illness: This is the case of a female, who came to [facility] yesterday with abdominal pain, nausea, diagnosed with ileus of unknown origin. At that moment, CT scan was inconcl usive as the etiology of this. There is some swelling not just of the bowel, but also the omentum. They cannot rule out carcinomatosis. The patient was transferred to this institution for further wor kup. CAT scan was repeated. I discussed the case with the radiologist myself today to explain to hi m the findings of yesterday at [place] as I was able to see her yesterday at [facility]. She den ies any dysuria, hematuria, hematochezia, melena. Denies any recent traveling out of the country. D enies any primary sick at home. She had her colonoscopy done about [address] Calix and she claims that was negative. Review of Systems: Ten points otherwise unremarkable. Allergies: NONE. Social History: She does not smoke. She does not drink alcohol. Past Surgical History: Hysterectomy. Past Medical History: Includes hypertension, hyperlipidemia, diabetes. Family History: Include diabetes and heart disease. Physical Examination: Vital Signs: Stable. General: The patient is awake, alert. HEENT: Pupils are equal and reactive. Anicteric. Neck: Supple. Chest: Clear. Heart: S1, S2. Abdomen: Soft and depressible. Mild lower abdominal tenderness, but no guarding or rebound. No per itoneal signs. Rectal: Deferred. Breasts: Deferred. Extremities: Good capillary refill. Laboratory Data: Blood work shows WBC count of 13, hemoglobin of 8.7, platelets of 703, potassium 3. 8, sodium is 134. CAT scan of the abdomen and pelvis at least 1 here at [facility] shows mild fl uid distention in small bowel loops through the center abdomen without evidence of abrupt caliber tra nsition. No bowel wall thickening, mild free ascites. Thin film like enhancement of a periapical pe ritoneum, particularly in the pelvis without discrete peritoneal masses or no bowel enhancement. No hernias seen. The urinary bladder is without significant finding. This is as reported by the radiol ogist. Plan: Ileus and then the findings of inflammation of the peritoneum. When I saw the CAT scan yester day, at least we discussed the CAT scan yesterday. They cannot rule out carcinomatosis. They were n ot sure. They were not confident on that right now, but they want to make sure that in the future. We will follow up on that, so the plan, today she feels better, she is passing gas, we are going to a dvance diet. She understands that even if she get better and ileus improved, we still have to do maribel e workup and make sure we rule out any other pathology for this ileus. Now that may include a diagno stic lap, although repeat CT scan after she is treated with antibiotics may be an option too. She wa s also advised to have a consultation with her orthopedic technician to make sure the findings on the co lonoscopies are accurate. Also with her dry cleaning checker since I am not sure if she still have ovaries o r not. Overall, in a week from now, if she gets discharged tomorrow after diet if she tolerates diet , to continue the workup for any other etiology of this ileus that the malignancy cannot be ruled out . DANIEL/MICKY Voice ID: [id number] Report ID: [id number]
[2023-09-28] MEDS ORDERED: GLUCAGON 1 MG/VIAL IM PRN (17:24)
[2023-09-28] MEDS ORDERED: D10W 125 ML IV PRN (17:24)
[2023-09-28] MEDS ORDERED: BENZONATATE 100 MG CAP PO PRN (18:44)
[2023-09-29 02:12] LABS: Absolute Lymphocytes (CBC) 2.1 K/uL (0.7-4.9); Hematocrit 26.6 % (36.0-45.0); MCV 72.8 fL (80-100); MPV 7.4 fL (7.6-11.3); Platelets 633 thou/uL (152-406); RBC Red Blood Cell Count 3.65 M/uL (3.86-4.86)
[2023-09-29 02:23] LABS: Albumin 2.3 g/dL (3.4-5.0); Bilirubin Total 0.2 mg/dL (0.2-1.0); Magnesium 1.9 mg/dL (1.6-2.4); Potassium 3.7 mEq/L (3.5-5.1); Protein, Total 6.7 g/dL (6.4-8.2)
[2023-09-29] MEDS: MORPHINE 2 MG/ML SYR IV PRN ×3 (06:14→21:35)
[2023-09-29] MEDS: PIPER TAZO 3.375 GM in NA CHLORIDE 0.9% 100 ML IV SCH ×3 (06:15→21:34)
--- NOTE | 2023-09-29 07:47 | RAD REPORT ---
EXAM DESCRIPTION: RAD - Abdomen 1 View (KUB) - 09/29/2023 7:04 am CLINICAL HISTORY: Abdomen pain FINDINGS: The bowel gas pattern is unremarkable. No significant abnormal calcification is displayed
[2023-09-29] MEDS: PANTOPRAZOLE 40 MG INJ IVP SCH (08:49)
[2023-09-29] MEDS: INSULIN REGULAR (HUMAN) 100 UNIT/ML SQ SCH ×4 (08:50→21:00)
--- NOTE | 2023-09-29 11:19 | P.PN ---
Date of Service: 09/29/23 Subjective: Feels abdominal pain improving - rated 3/10 tolerating full liquid diet; no nausea/vomiting no new / worsening problems afebrile ROS: 10 point ROS as noted above, otherwise negative Physical Exam: GEN: Alert, oriented, NAD HEENT: Normal conjunctiva, sclera anicteric, CV: Regular rate and rhythm, no edema Pulm: Nonlabored respirations on room air, clear bilaterally ABD: mild distention, decreased bowel sounds, mild periumbilical / RLQ te nderness Neuro: Normal speech, normal affect Problem List: Ileus Cough IDDM2 Hypertension Hyperlipidemia Ileus vs Small bowel obstruction transferred from [facility]; noted abdominal pain for 2-[address] Carvajal at [facility] ER CT abdomen (09/28): findings suggestive of ileus. Mild free ascites with parietal perineum enhancement, concerning for peritonitis KUB (09/29): unremarkable bowel gas pattern improving, tolerating liquid diet, but continues with abdominal pain General surgery - Dr. Carvajal consulted reviewed repeat CT, recommends full liquid diet with slow advancement Serial abdominal exams Continue PPI Continue empiric zosyn (09/27-) afebrile, leukocytosis improving PRN analgesics/antiemetics UA unremarkable IDDM2 Accu-Cheks, Insulin sliding scale Hypertension Hyperlipidemia confirm home medications, restart as appropriate Code: Full Dispo: Home, ~1 day Pending further improvement
[2023-09-29] MEDS: NA CHLORIDE 0.9% 1,000 ML IV SCH (13:16)
[2023-09-30 02:48] LABS: Hematocrit 26.6 % (36.0-45.0); Lymphocytes % 17.3 % (15.3-44.8); MCV 73.4 fL (80-100); MPV 7.3 fL (7.6-11.3); Platelets 560 thou/uL (152-406); RBC Red Blood Cell Count 3.62 M/uL (3.86-4.86)
[2023-09-30 03:04] LABS: Albumin 2.3 g/dL (3.4-5.0); Bilirubin Total 0.3 mg/dL (0.2-1.0); Magnesium 1.6 mg/dL (1.6-2.4); Potassium 3.6 mEq/L (3.5-5.1); Protein, Total 6.7 g/dL (6.4-8.2)
[2023-09-30] MEDS: PIPER TAZO 3.375 GM in NA CHLORIDE 0.9% 100 ML IV SCH ×3 (06:25→20:29)
[2023-09-30] MEDS ORDERED: MORPHINE 2 MG/ML SYR IV PRN (06:44)
[2023-09-30] MEDS: INSULIN REGULAR (HUMAN) 100 UNIT/ML SQ SCH ×4 (07:30→20:29)
--- NOTE | 2023-09-30 08:27 | P.PN ---
Date of Service: 09/30/23 Subjective: Feels abdominal pain slowly improving reports lower abdominal pain when urinating; +burning sensation UA checked on admission was unremarkable tolerating full liquids; trial of soft food for breakfast today afebrile ROS: 10 point ROS as noted above, otherwise negative Physical Exam: GEN: Alert, oriented, NAD HEENT: Normal conjunctiva, sclera anicteric, CV: Regular rate and rhythm, no edema Pulm: Nonlabored respirations on room air, clear bilaterally ABD: mild distention, decreased bowel sounds, mild periumbilical / RLQ tenderness Problem List: Ileus Cough IDDM2 Chronic Anemia / hx of Iron deficiency anemia Hypertension Hyperlipidemia Ileus transferred from [facility]; noted abdominal pain for 2-[address] Carvajal at [facility] ER CT abdomen (09/28): findings suggestive of ileus. Mild free ascites with parietal perineum enhancement, concerning for peritonitis KUB (09/29): unremarkable bowel gas pattern improving, tolerating liquid diet, but continues with abdominal pain General surgery - Dr. Carvajal consulted reviewed repeat CT, recommended full liquid diet with slow advancement Continue PPI Continue empiric zosyn (09/27-) afebrile, leukocytosis improving anticipate transition to PO abx this evening / tomorrow am PRN analgesics/antiemetics advance to GI soft for breakfast today 09/30 Patient reports lower abdominal pain when urinating; +burning sensation since prior to admisison UA on admission unremarkable. no Bacteria, no LE / RBC / WBC. Monitor for worsening signs Cough PRN tessalon perles, PRN Robitussin IDDM2 Accu-Cheks, Insulin sliding scale Chronic Anemia / hx of Iron deficiency anemia h/o iron deficiency requiring IV transfusions, has not followed up in quite some time, suspect iron will be very low iron studies ordered. Start IV iron Hypertension Hyperlipidemia confirm home medications, restart as appropriate Code: Full Dispo: Home, ~1 day Pending further improvement
[2023-09-30] MEDS: SOD FERRIC GLUC COMPLX/SUCROSE 125 MG in NA CHLORIDE 0.9% 100 ML IV SCH (09:24)
[2023-09-30] MEDS: CLOPIDOGREL 75 MG TABLET PO SCH (09:24)
[2023-09-30] MEDS: AMLODIPINE 10 MG TAB PO SCH (09:24)
[2023-09-30] MEDS: PANTOPRAZOLE 40 MG INJ IVP SCH (09:24)
[2023-09-30 09:45] LABS: Ferritin 13.1 ng/mL (8-388)
[2023-09-30] MEDS: guaiFENesin 100 MG/5 ML UCUP PO PRN ×2 (12:22→19:39)
[2023-09-30] MEDS: CODEINE 30MG/APAP 300MG TAB PO PRN ×2 (14:03→19:39)
--- NOTE | 2023-09-30 16:56 | PN ---
Subjective: Ms. Chan is the patient who comes with abdominal pain and ileus. The etiology of th at is unknown. She was seen initially at [place], then in our institution. We discussed the case and the x-rays with the oncologist. We did not see any gross masses in her abdomen. There is some infl ammation of the omentum of unknown origin that will require eventually workup once she as an outpatie nt evaluated with colonoscopies and any other indicated procedure. She was also advised the angelito ce of following up with her newborn hearing screener. Objective: Chest: Clear. Abdomen: Soft and depressible. Extremities: Good capillary refill. Laboratory Data: Blood work shows WBC count of 11.7, hemoglobin of 8.3, and platelets of 560. Potas sium 3.6, glucose 235. KUB done yesterday, a day after. Her CAT scan shows the bowel gas pattern is unremarkable. Plan: From the surgical standpoint, no surgical intervention is planned at this moment. She may nee d a diagnostic lap in the future. If we see clinically, she does not improve or if we see progressio n of the findings, then we will have CT scan. We will recommend her to have a full evaluation by gas troenterologist and also her newborn hearing screener and follow up in my office when discharged in a week from n ow. DANIEL/MICKY Voice ID: [id number] Report ID: [id number]
[2023-10-01] MEDS: guaiFENesin 100 MG/5 ML UCUP PO PRN ×2 (03:10→11:12)
[2023-10-01] MEDS: CODEINE 30MG/APAP 300MG TAB PO PRN ×2 (03:10→10:07)
[2023-10-01] MEDS: PIPER TAZO 3.375 GM in NA CHLORIDE 0.9% 100 ML IV SCH (05:25)
[2023-10-01 07:11] LABS: Hematocrit 27.8 % (36.0-45.0); MCV 73.3 fL (80-100); MPV 6.9 fL (7.6-11.3); Platelets 581 thou/uL (152-406); RBC Red Blood Cell Count 3.79 M/uL (3.86-4.86)
[2023-10-01 07:27] LABS: Magnesium 1.6 mg/dL (1.6-2.4); Potassium 3.9 mEq/L (3.5-5.1)
[2023-10-01] MEDS: INSULIN REGULAR (HUMAN) 100 UNIT/ML SQ SCH ×2 (07:30→11:30)
[2023-10-01] MEDS: AMLODIPINE 10 MG TAB PO SCH (08:43)
[2023-10-01] MEDS: PANTOPRAZOLE 40 MG INJ IVP SCH (08:43)
[2023-10-01] MEDS: CLOPIDOGREL 75 MG TABLET PO SCH (08:43)
[2023-10-01 09:03] VITALS: BP 129/61; TEMP 98.1
--- NOTE | 2023-10-01 09:03 | P.DS ---
Admission Date: 09/28/23 Discharge Date: 10/01/23 Disposition: ROUTINE DISCHARGE Discharge Condition: GOOD Reason for Admission: Abdominal Pain Consultations: General Surgery - Dr. Carvajal Brief History of Present Illness: 68 yo f, PMH: diabetes, hypertension, hyperlipidemia , and history of cholecystectomy and hysterectomy Patient who was transferred from [facility] where she presented with abdom inal pain which started 2 to 3 days ago. Patient stated that she had upper respiratory tract kind of infection and was treated with antibiotics ( Z-Jose Antonio ) and antitussives and has been recuperating but started having abdominal pain 3 days ago. Pain is located in light lower abdomen and diffuse with no radiation. Patient was seen in [facility] and was transferred over here for further management. Patient was seen by Dr. Carvajal in that hospital. Denies any fever. No nausea vomiting or diarrhea. Denies any constipation. Had a normal bowel movement this morning. Denies any melena or hematemesis, patient denies dysuria. Denies any chest pain or shortness of breath. Complains of cough, with mucoid expectoration Hospital Course: Problem List: Ileus, resolved Cough, improving IDDM2 Severe iron deficiency anemia Hypertension Hyperlipidemia Patient who was transferred from [facility] presented with 2-3 days of abdominal pain. CT abdomen on 09/28 with findings suggestive of ileus. Mild free ascites with parietal perineum enhancement, mildly concerning for peritonitis. General surgery was consulted. Dr. Carvajal reviewed CT results and recommended medical management. Patient had improvement of her symptoms with bowel rest, pain medication, empiric antibiotics, and IV fluids. Diet was advanced slowly and patient continued to show improvement. Repeat imaging showed resolution of ileus. Patient was feeling better, passing gas, had a bowel movement, afebrile, leukocytosis improving, and was deemed stable for discharge. Patient tolerating GI soft diet without issues on day of discharge. She reported some mild lower abdominal discomfort but was triggered more from coughing, and not from eating. Recommend following up with GI in next few weeks for further work up / rule out any other pathology for this ileus. Patient is to complete 7 days of augmentin on discharge. Iron studies were consistent with severe iron deficiency anemia. Patient reported longstanding history and needed IV iron in the past. Previously seen Dr. Ni, but states it has been a while since she has followed up. She received 2 doses of IV iron during hospitalization, Iron: 14(normal limit 50-170), %Tsat: 3.4 (normal limit 20-50). She has not been taking or oral iron regularly, but states she still has a prescription and will resume her iron at home. Medications: Augmentin x7 days Tylenol #3, as needed for pain Follow up: PCP 3-[address] Carvajal in ~1 week. Can call his office to make appointment GI clinic 2-3 weeks Physical Exam: GEN: Alert, oriented, NAD HEENT: Normal conjunctiva, sclera anicteric, CV: Regular rate and rhythm, no edema Pulm: Nonlabored respirations on room air, clear bilaterally ABD: mild distention, decreased bowel sounds, mild periumbilical / RLQ tenderness Vital Signs/Physical Exam: Temp Pulse Resp BP Pulse Ox 97.3 F 75 18 125/60 92 10/01/23 04:00 10/01/23 04:00 10/01/23 04:10 10/01/23 04:00 10/01/23 04:10 Laboratory Data at Discharge: WBC 11.40 thou/uL (4.3-10.9) H 10/01/23 06:52 Hgb 8.8 g/dL (12.0-15.0) L 10/01/23 06:52 Hct 27.8 % (36.0-45.0) L 10/01/23 06:52 Plt Count 581 thou/uL (152-406) H 10/01/23 06:52 Sodium 136 mEq/L (136-145) 10/01/23 06:52 Potassium 3.9 mEq/L (3.5-5.1) 10/01/23 06:52 BUN 3 mg/dL (7-18) L 10/01/23 06:52 Creatinine 0.50 mg/dL (0.55-1.02) L 10/01/23 06:52 Glucose 226 mg/dL (74-106) H 10/01/23 06:52 Magnesium 1.6 mg/dL (1.6-2.4) 10/01/23 06:52 Total Bilirubin 0.3 mg/dL (0.2-1.0) 09/30/23 01:40 AST 19 U/L (15-37) 09/30/23 01:40 ALT 17 U/L (13-56) 09/30/23 01:40 Alkaline Phosphatase 49 U/L (45-117) 09/30/23 01:40 Home Medications: Amlodipine [Norvasc*] 10 mg DAILY 03/31/22 Hum Insulin NPH/Reg Insulin Hm [Humulin 70-30 Vial] 50 units BID 03/31/22 Lovastatin 20 mg DAILY 03/31/22 Metformin HCl 1,000 mg DAILY 03/31/22 lisinopriL [Lisinopril] 20 mg DAILY 03/31/22 Cetirizine HCl [Zyrtec] 10 PO 09/28/23 Clopidogrel Bisulfate [Plavix] 75 mg PO 09/28/23 Ferrous Sulfate/Folic Acid [Bentivite Bx Tablet] 09/28/23 Amox/Clavulanate [Augmentin 875-125 Tab] 1 tab PO BID 7 Days #14 tab 10/01/23 Codeine/APAP [Tylenol W/Codeine #3 tab] 1 tab PO Q8H PRN #15 tab 10/01/23 New Medications: Amox/Clavulanate [Augmentin 875-125 Tab] 1 tab PO BID 7 Days #14 tab Codeine/APAP [Tylenol W/Codeine #3 tab] 1 tab PO Q8H PRN #15 tab PRN Reason: Pain Physician Discharge Instructions: Patient who was transferred from [facility] presented with 2-3 days of abdominal pain. CT abdomen on 09/28 with findings suggestive of ileus. Mild free ascites with parietal perineum enhancement, concerning for peritonitis. General surgery was consulted. Dr. Carvajal reviewed CT results and recommended medical management. Patient had improvement of her symptoms with bowel rest, protonix, IV fluids. Diet was advanced slowly and patient continued to show improvement. Patient was feeling better, passing gas, afebrile, leukocytosis improving, and was deemed stable for discharge. Patient tolerating GI soft diet without issues on day of discharge. Recommend following up with GI in next few weeks for further work up / rule out any other pathology for this ileus as malignancy cannot be ruled out. Patient is to complete 7 days of augmentin on discharge. Iron studies were consistent with severe iron deficiency anemia. Patient was started on IV iron therapy while hospitalized and recommend patient continue iron supplementation on discharge. Patient noted to have prescription for iron at home. Recommend repeat blood work in ~1 week to monitor CBC and repeat iron studies in a few months. Recommend following up with Dr. Ni in the near future to discuss restarting IV iron infusions. iron: 14 (normal limit 50-170) transferrin %sat: 3.4 (normal limit 20-50) Medications: Augmentin x7 days Tylenol #3, 15 pills as needed for pain Follow up: PCP 3-[address] Carvajal in ~1 week. Can call his office to make appointment GI clinic 2-3 weeks Time spent managing pt's care (in minutes): 45
[2023-10-01] MEDS: SOD FERRIC GLUC COMPLX/SUCROSE 125 MG in NA CHLORIDE 0.9% 100 ML IV SCH (09:55)
== END 2023-10-01 12:23 | disposition home or self-care (01) | DRG 388 ==
LOC: 2ND 20:54 → OBSVTOIN 09-28 12:20
PROVIDERS: ADMIT Hospitalist; ATTEND Hospitalist
DX: K56.7 Ileus, unspecified (principal); K65.9 Peritonitis, unspecified; R18.8 Other ascites; E11.9 Type 2 diabetes mellitus without complications; I10 Essential (primary) hypertension; D50.9 Iron deficiency anemia, unspecified; E78.5 Hyperlipidemia, unspecified; Z79.4 Long term (current) use of insulin; Z79.84 Long term (current) use of oral hypoglycemic drugs; Z79.02 Long term (current) use of antithrombotics/antiplatelets; Z90.49 Acquired absence of other specified parts of digestive tract; Z90.710 Acquired absence of both cervix and uterus; Z79.899 Other long term (current) drug therapy
CPT/HCPCS: 36415; 74018; 74177; 80048; 80053; 81001; 82728; 82947; 83540; 83735; 84466; 85025; 85027; A4216; C9113; G0378; G0379; J1815; J2270; J2543; J2916; J7030; Q9967

== ENCOUNTER 2023-10-12 15:11 | Inpatient (IN) | payer OTHER ==
--- OUTSIDE RECORDS SUMMARY | 2023-10-12 15:19 | XMS REPORT | Continuity of Care Document ---
Author Name Unknown Address [address] [facility] [address] [place] [id number] [facility] thconnect Address [address] [facility] [address] [place] [address] Care Team Providers Care In Shop Service Technician Name Role Phone Jaida Attending Clinician Unavailable YADIEL LAWTON Attending Clinician Unavailable RITCHIE Attending Clinician Unavailable Carlotta Ruiz Attending Clinician [phone] Attending Clinician Unavailable Meryl Watson Attending Clinician [phone] Jaida Admitting Clinician Unavailable RITCHIE Admitting Clinician Unavailable KO Admitting Clinician Unavailable Payers Payer Name Policy Type Policy Number Effective Date Expirati on Date Source [employer] (MEDICARE REPLACEMENT PPO) [id number] 2019 00:00:00 [place] [employer] [id number] 2019 00:00:00 Problems Condition Name Condition Details Condition Category Status Onset Date Resolution Date Last Treatment Date Treating Clinician Comments Source Right lower quadrant pain Right Lower Quadrant Pain Problem Active 2022-10 2-05 00:00: 00 [facility] Glaucoma of right eye Glaucoma of Right Eye Problem Active 2022-10 0- 00:00: 00 [facility] Upper respirator y infection Upper Respirator y Infection Problem Active 12-15 00:00: 00 [facility] Chronic back pain Chronic Back Pain Problem Active 11-02 00:00: 00 [facility] Generalize d acute body pains Generalize d Acute Body Pains Problem Active 11-02 00:00: 00 [facility] Otalgia of left ear Otalgia of Left Ear Problem Active 2021-10 1-16 00:00: 00 [facility] Streptococ eduard sore throat Streptococ eduard Sore Throat Problem Active 2021-10 0-03 00:00: 00 [facility] Acute sinusitis Acute Sinusitis Problem Active 2021-10 0-03 00:00: 00 [facility] Pain in throat Pain in Throat Problem Active 2021-10 0-03 00:00: 00 [facility] Cough Cough Problem Active 2021-10 003 00:00: 00 [facility] Hypothyroi dism Hypothyroi dism Problem Active 2020-10 0 00:00: 00 [facility] Nasal congestion Nasal Congestion Problem Active 2020-10 0 00:00: 00 [facility] Iron deficiency anemia Iron Deficiency Anemia Problem Active 04-22 00:00: 00 [facility] Ultrasound scan abnormal Ultrasound Scan Abnormal Problem Active 04-22 00:00: 00 [facility] Left side sciatica Left Side Sciatica Problem Active 03-25 00:00: 00 [facility] Type 2 diabetes mellitus Type 2 Diabetes Mellitus Problem Active 03-01 00:00: 00 [facility] Hyperlipid emia Hyperlipid emia Problem Active 03-01 00:00: 00 [facility] Essential hypertensi on Essential Hypertensi on Problem Active 03-01 00:00: 00 [facility] Social History Smoking Status Start Date Stop Date Source Former Smoker [facility] Medications Ordered Medication Name Filled Medication Name Start Date Stop Date Current Medication? Ordering Clinician Indication Dosage Frequency Signature (SIG) Comments Components Source Solu-Medrol (PF) 125 mg/2 mL solution for injectionTa ke 125 mg by injection route. Solu-Medrol (PF) 125 mg/2 mL solution for injectionTa ke 125 mg by injection route. 2022-10 11:27: 00 No Solu-Medro l (PF) 125 mg/2 mL solution for injectionT karen 125 mg by injection route. [facility] ceftriaxone 1 gram solution for injectionTa ke 1 g by injection route. ceftriaxone 1 gram solution for injectionTa ke 1 g by injection route. 05-18 09:45: 00 No ceftriaxon e 1 gram solution for injectionT karen 1 g by injection route. [facility] lidocaine (PF) 10 mg/mL (1 %) injection solutionTak e 2.1 mL by injection route. lidocaine (PF) 10 mg/mL (1 %) injection solutionTak e 2.1 mL by injection route. 05-18 09:45: 00 No lidocaine (PF) 10 mg/mL (1 %) injection solutionTa ke 2.1 mL by injection route. [facility] ceftriaxone 1 gram solution for injectionTa ke 1 g by injection route. ceftriaxone 1 gram solution for injectionTa ke 1 g by injection route. 05-18 09:45: 00 No ceftriaxon e 1 gram solution for injectionT karen 1 g by injection route. [facility] lidocaine (PF) 10 mg/mL (1 %) injection solutionTak e 2.1 mL by injection route. lidocaine (PF) 10 mg/mL (1 %) injection solutionTak e 2.1 mL by injection route. 05-18 09:45: 00 No lidocaine (PF) 10 mg/mL (1 %) injection solutionTa ke 2.1 mL by injection route. [facility] Kenalog 40 mg/mL suspension for injectionTa ke 80 mg by injection route. Kenalog 40 mg/mL suspension for injectionTa ke 80 mg by injection route. 01-31 10:20: 00 No Kenalog 40 mg/mL suspension for injectionT karen 80 mg by injection route. [facility] lidocaine HCl 10 mg/mL (1 %) injection solutionTak e 2 mL by injection route. lidocaine HCl 10 mg/mL (1 %) injection solutionTak e 2 mL by injection route. 11-17 12:59: 00 No lidocaine HCl 10 mg/mL (1 %) injection solutionTa ke 2 mL by injection route. [facility] lidocaine HCl 10 mg/mL (1 %) injection solutionTak e 2 mL by injection route. lidocaine HCl 10 mg/mL (1 %) injection solutionTak e 2 mL by injection route. 11-17 12:59: 00 No lidocaine HCl 10 mg/mL (1 %) injection solutionTa ke 2 mL by injection route. [facility] ceftriaxone 1 gram solution for injectionTa ke 1 g by injection route for 1 day. ceftriaxone 1 gram solution for injectionTa ke 1 g by injection route for 1 day. 11-17 12:00: 00 No ceftriaxon e 1 gram solution for injectionT karen 1 g by injection route for 1 day. [facility] ceftriaxone 1 gram solution for injectionTa ke 1 g by injection route for 1 day. ceftriaxone 1 gram solution for injectionTa ke 1 g by injection route for 1 day. 11-17 12:00: 00 No ceftriaxon e 1 gram solution for injectionT karen 1 g by injection route for 1 day. [facility] Kenalog 40 mg/mL suspension for injectionTa ke 60 mg by injection route as directed. Kenalog 40 mg/mL suspension for injectionTa ke 60 mg by injection route as directed. 11-02 16:40: 00 No Kenalog 40 mg/mL suspension for injectionT karen 60 mg by injection route as directed. [facility] Kenalog 40 mg/mL suspension for injectionTa ke 40 mg by injection route as directed for 1 day. Kenalog 40 mg/mL suspension for injectionTa ke 40 mg by injection route as directed for 1 day. 2021-10 15:32: 00 No Kenalog 40 mg/mL suspension for injectionT karen 40 mg by injection route as directed for 1 day. [facility] Kenalog 40 mg/mL suspension for injectionTa ke 40 mg by injection route as directed for 1 day. Kenalog 40 mg/mL suspension for injectionTa ke 40 mg by injection route as directed for 1 day. 2022-1 0-03 15:32: 00 No Kenalog 40 mg/mL suspension for injectionT karen 40 mg by injection route as directed for 1 day. [facility] Kenalog 40 mg/mL suspension for injection Take 60 mg by injection route as directed for 1 day. Kenalog 40 mg/mL suspension for injection Take 60 mg by injection route as directed for 1 day. 2020-10 0 00:00: 00 No 60mg Kenalog 40 mg/mL suspension for injection Take 60 mg by injection route as directed for 1 day. [facility] Kenalog 40 mg/mL suspension for injectionTa ke 60 mg by injection route as directed for 1 day. Kenalog 40 mg/mL suspension for injectionTa ke 60 mg by injection route as directed for 1 day. 6 10:05: 00 No Kenalog 40 mg/mL suspension for injectionT karen 60 mg by injection route as directed for 1 day. [facility] Solu-Medrol (PF) 125 mg/2 mL solution for injectionTa ke 125 mg by injection route as directed for 1 day. Solu-Medrol (PF) 125 mg/2 mL solution for injectionTa ke 125 mg by injection route as directed for 1 day. 12-10 11:30: 00 No Solu-Medro l (PF) 125 mg/2 mL solution for injectionT karen 125 mg by injection route as directed for 1 day. [facility] ceftriaxone 1 gram solution for injectionTa ke 1 g by injection route as directed for 1 day. ceftriaxone 1 gram solution for injectionTa ke 1 g by injection route as directed for 1 day. 12-10 11:30: 00 No ceftriaxon e 1 gram solution for injectionT karen 1 g by injection route as directed for 1 day. [facility] lidocaine (PF) 10 mg/mL (1 %) injection solutionTak e 2.1 mL by injection route as directed for 1 day. lidocaine (PF) 10 mg/mL (1 %) injection solutionTak e 2.1 mL by injection route as directed for 1 day. 12-10 11:30: 00 No lidocaine (PF) 10 mg/mL (1 %) injection solutionTa ke 2.1 mL by injection route as directed for 1 day. [facility] cephalexin 750 mg capsule Take 1 capsule twice a day by oral route as directed for 7 days. cephalexin 750 mg capsule Take 1 capsule twice a day by oral route as directed for 7 days. 12-10 00:00: 00 No 1capsul e(s) BID cephalexin 750 mg capsule Take 1 capsule twice a day by oral route as directed for 7 days. [facility] Keflex 500 mg capsule Take 1 capsule every 8 hours by oral route as directed for 10 days. Keflex 500 mg capsule Take 1 capsule every 8 hours by oral route as directed for 10 days. 12-10 00:00: 00 No 1capsul e(s) Q8H Keflex 500 mg capsule Take 1 capsule every 8 hours by oral route as directed for 10 days. [facility] promethazin e-DM 6.25 mg-15 mg/5 mL oral syrup Take 5mL once at bedtime as needed for cough. DO NOT take during the day. DO NOT drive or operate heavy machinery while taking this medication. Duration: 10 days promethazin e-DM 6.25 mg-15 mg/5 mL oral syrup Take 5mL once at bedtime as needed for cough. DO NOT take during the day. DO NOT drive or operate heavy machinery while taking this medication. Duration: 10 days 12-10 00:00: 00 No promethazi ne-DM 6.25 mg-15 mg/5 mL oral syrup Take 5mL once at bedtime as needed for cough. DO NOT take during the day. DO NOT drive or operate heavy machinery while taking this medication . Duration: 10 days [facility] amlodipine 10 mg tablet TAKE 1 TABLET BY MOUTH ONCE DAILY DIRECTED FOR 90 DAYS amlodipine 10 mg tablet TAKE 1 TABLET BY MOUTH ONCE DAILY DIRECTED FOR 90 DAYS No amlodipine 10 mg tablet TAKE 1 TABLET BY MOUTH ONCE DAILY DIRECTED FOR 90 DAYS [facility] amoxicillin 875 mg tablet Take 1 tablet every 12 hours by oral route as directed for 10 days. amoxicillin 875 mg tablet Take 1 tablet every 12 hours by oral route as directed for 10 days. No 1 Q12H amoxicilli n 875 mg tablet Take 1 tablet every 12 hours by oral route as directed for 10 days. [facility] bromphenira mine-pseudo ephedrine-D M 2 mg-30 mg-10 mg/5 mL oral syrup TAKE 5 ML BY MOUTH TWICE DAILY NEEDED FOR 10 DAYS bromphenira mine-pseudo ephedrine-D M 2 mg-30 mg-10 mg/5 mL oral syrup TAKE 5 ML BY MOUTH TWICE DAILY NEEDED FOR 10 DAYS No bromphenir amine-pseu doephedrin e-DM 2 mg-30 mg-10 mg/5 mL oral syrup TAKE 5 ML BY MOUTH TWICE DAILY NEEDED FOR 10 DAYS [facility] Humulin R Regular U-100 Insulin 100 unit/mL injection solution Take 25 units every day by injection route at bedtime for 30 days. Humulin R Regular U-100 Insulin 100 unit/mL injection solution Take 25 units every day by injection route at bedtime for 30 days. No 25unit( s) Q1D Humulin R Regular U-100 Insulin 100 unit/mL injection solution Take 25 units every day by injection route at bedtime for 30 days. [facility] ibuprofen 800 mg tablet Take 1 tablet 3 times a day by oral route as needed for 30 days. ibuprofen 800 mg tablet Take 1 tablet 3 times a day by oral route as needed for 30 days. No 1 TID ibuprofen 800 mg tablet Take 1 tablet 3 times a day by oral route as needed for 30 days. [facility] insulin aspar prt-insulin aspart 100 unit/mL (70-30) subcutaneou s soln Inject 50 units twice a day by subcutaneou s route as directed for 30 days. insulin aspar prt-insulin aspart 100 unit/mL (70-30) subcutaneou s soln Inject 50 units twice a day by subcutaneou s route as directed for 30 days. No 50unit( s) BID insulin aspar prt-insuli n aspart 100 unit/mL (70-30) subcutaneo us soln Inject 50 units twice a day by subcutaneo us route as directed for 30 days. [facility] Kenalog 40 mg/mL suspension for injection Take 60 mg by injection route as directed for 1 day. Kenalog 40 mg/mL suspension for injection Take 60 mg by injection route as directed for 1 day. No 60mg Kenalog 40 mg/mL suspension for injection Take 60 mg by injection route as directed for 1 day. [facility] lovastatin 20 mg tablet TAKE 1 TABLET BY MOUTH ONCE DAILY AT BEDTIME lovastatin 20 mg tablet TAKE 1 TABLET BY MOUTH ONCE DAILY AT BEDTIME No lovastatin 20 mg tablet TAKE 1 TABLET BY MOUTH ONCE DAILY AT BEDTIME [facility] metformin 1,000 mg tablet TAKE 1 TABLET BY MOUTH TWICE DAILY BEFORE MEAL(S) metformin 1,000 mg tablet TAKE 1 TABLET BY MOUTH TWICE DAILY BEFORE MEAL(S) No metformin 1,000 mg tablet TAKE 1 TABLET BY MOUTH TWICE DAILY BEFORE MEAL(S) [facility] mometasone 50 mcg/actuati on nasal spray USE 2 SPRAY(S) IN EACH NOSTRIL ONCE DAILY DIRECTED FOR 14 DAYS mometasone 50 mcg/actuati on nasal spray USE 2 SPRAY(S) IN EACH NOSTRIL ONCE DAILY DIRECTED FOR 14 DAYS No mometasone 50 mcg/actuat ion nasal spray USE 2 SPRAY(S) IN EACH NOSTRIL ONCE DAILY DIRECTED FOR 14 DAYS [facility] montelukast 10 mg tablet TAKE 1 TABLET BY MOUTH ONCE DAILY DIRECTED. montelukast 10 mg tablet TAKE 1 TABLET BY MOUTH ONCE DAILY DIRECTED. No montelukas t 10 mg tablet TAKE 1 TABLET BY MOUTH ONCE DAILY DIRECTED. [facility] promethazin e-DM 6.25 mg-15 mg/5 mL oral syrup TAKE 5 ML BY MOUTH ONCE DAILY AT BEDTIME FOR 10 DAYS promethazin e-DM 6.25 mg-15 mg/5 mL oral syrup TAKE 5 ML BY MOUTH ONCE DAILY AT BEDTIME FOR 10 DAYS No promethazi ne-DM 6.25 mg-15 mg/5 mL oral syrup TAKE 5 ML BY MOUTH ONCE DAILY AT BEDTIME FOR 10 DAYS [facility] amlodipine 10 mg tablet TAKE 1 TABLET BY MOUTH ONCE DAILY DIRECTED FOR 90 DAYS amlodipine 10 mg tablet TAKE 1 TABLET BY MOUTH ONCE DAILY DIRECTED FOR 90 DAYS No amlodipine 10 mg tablet TAKE 1 TABLET BY MOUTH ONCE DAILY DIRECTED FOR 90 DAYS [facility] amoxicillin 875 mg tablet TAKE 1 TABLET BY MOUTH EVERY 12 HOURS DIRECTED FOR 10 DAYS amoxicillin 875 mg tablet TAKE 1 TABLET BY MOUTH EVERY 12 HOURS DIRECTED FOR 10 DAYS No amoxicilli n 875 mg tablet TAKE 1 TABLET BY MOUTH EVERY 12 HOURS DIRECTED FOR 10 DAYS [facility] bromphenira mine-pseudo ephedrine-D M 2 mg-30 mg-10 mg/5 mL oral syrup TAKE 5 ML BY MOUTH TWICE DAILY NEEDED FOR 10 DAYS bromphenira mine-pseudo ephedrine-D M 2 mg-30 mg-10 mg/5 mL oral syrup TAKE 5 ML BY MOUTH TWICE DAILY NEEDED FOR 10 DAYS No bromphenir amine-pseu doephedrin e-DM 2 mg-30 mg-10 mg/5 mL oral syrup TAKE 5 ML BY MOUTH TWICE DAILY NEEDED FOR 10 DAYS [facility] Humulin R Regular U-100 Insulin 100 unit/mL injection solution Take 25 units every day by injection route at bedtime for 30 days. Humulin R Regular U-100 Insulin 100 unit/mL injection solution Take 25 units every day by injection route at bedtime for 30 days. No 25unit( s) Q1D Humulin R Regular U-100 Insulin 100 unit/mL injection solution Take 25 units every day by injection route at bedtime for 30 days. [facility] ibuprofen 800 mg tablet TAKE 1 TABLET BY MOUTH THREE TIMES DAILY NEEDED ibuprofen 800 mg tablet TAKE 1 TABLET BY MOUTH THREE TIMES DAILY NEEDED No ibuprofen 800 mg tablet TAKE 1 TABLET BY MOUTH THREE TIMES DAILY NEEDED [facility] insulin aspar prt-insulin aspart 100 unit/mL (70-30) subcutaneou s soln Inject 50 units twice a day by subcutaneou s route as directed for 30 days. insulin aspar prt-insulin aspart 100 unit/mL (70-30) subcutaneou s soln Inject 50 units twice a day by subcutaneou s route as directed for 30 days. No 50unit( s) BID insulin aspar prt-insuli n aspart 100 unit/mL (70-30) subcutaneo us soln Inject 50 units twice a day by subcutaneo us route as directed for 30 days. [facility] Kenalog 40 mg/mL suspension for injection Take 60 mg by injection route as directed for 1 day. Kenalog 40 mg/mL suspension for injection Take 60 mg by injection route as directed for 1 day. No 60mg Kenalog 40 mg/mL suspension for injection Take 60 mg by injection route as directed for 1 day. [facility] lovastatin 20 mg tablet TAKE 1 TABLET BY MOUTH ONCE DAILY AT BEDTIME lovastatin 20 mg tablet TAKE 1 TABLET BY MOUTH ONCE DAILY AT BEDTIME No lovastatin 20 mg tablet TAKE 1 TABLET BY MOUTH ONCE DAILY AT BEDTIME [facility] metformin 1,000 mg tablet TAKE 1 TABLET BY MOUTH TWICE DAILY BEFORE MEAL(S) metformin 1,000 mg tablet TAKE 1 TABLET BY MOUTH TWICE DAILY BEFORE MEAL(S) No metformin 1,000 mg tablet TAKE 1 TABLET BY MOUTH TWICE DAILY BEFORE MEAL(S) [facility] mometasone 50 mcg/actuati on nasal spray USE 2 SPRAY(S) IN EACH NOSTRIL ONCE DAILY DIRECTED FOR 14 DAYS mometasone 50 mcg/actuati on nasal spray USE 2 SPRAY(S) IN EACH NOSTRIL ONCE DAILY DIRECTED FOR 14 DAYS No mometasone 50 mcg/actuat ion nasal spray USE 2 SPRAY(S) IN EACH NOSTRIL ONCE DAILY DIRECTED FOR 14 DAYS [facility] montelukast 10 mg tablet TAKE 1 TABLET BY MOUTH ONCE DAILY DIRECTED montelukast 10 mg tablet TAKE 1 TABLET BY MOUTH ONCE DAILY DIRECTED No montelukas t 10 mg tablet TAKE 1 TABLET BY MOUTH ONCE DAILY DIRECTED [facility] promethazin e-DM 6.25 mg-15 mg/5 mL oral syrup TAKE 5 ML BY MOUTH ONCE DAILY AT BEDTIME FOR 10 DAYS promethazin e-DM 6.25 mg-15 mg/5 mL oral syrup TAKE 5 ML BY MOUTH ONCE DAILY AT BEDTIME FOR 10 DAYS No promethazi ne-DM 6.25 mg-15 mg/5 mL oral syrup TAKE 5 ML BY MOUTH ONCE DAILY AT BEDTIME FOR 10 DAYS [facility] amlodipine 10 mg tablet TAKE 1 TABLET BY MOUTH ONCE DAILY DIRECTED FOR 90 DAYS amlodipine 10 mg tablet TAKE 1 TABLET BY MOUTH ONCE DAILY DIRECTED FOR 90 DAYS No amlodipine 10 mg tablet TAKE 1 TABLET BY MOUTH ONCE DAILY DIRECTED FOR 90 DAYS [facility] amoxicillin 875 mg tablet TAKE 1 TABLET BY MOUTH EVERY 12 HOURS DIRECTED FOR 10 DAYS amoxicillin 875 mg tablet TAKE 1 TABLET BY MOUTH EVERY 12 HOURS DIRECTED FOR 10 DAYS No amoxicilli n 875 mg tablet TAKE 1 TABLET BY MOUTH EVERY 12 HOURS DIRECTED FOR 10 DAYS [facility] bromphenira mine-pseudo ephedrine-D M 2 mg-30 mg-10 mg/5 mL oral syrup TAKE 5 ML BY MOUTH TWICE DAILY NEEDED FOR 10 DAYS bromphenira mine-pseudo ephedrine-D M 2 mg-30 mg-10 mg/5 mL oral syrup TAKE 5 ML BY MOUTH TWICE DAILY NEEDED FOR 10 DAYS No bromphenir amine-pseu doephedrin e-DM 2 mg-30 mg-10 mg/5 mL oral syrup TAKE 5 ML BY MOUTH TWICE DAILY NEEDED FOR 10 DAYS [facility] Humulin R Regular U-100 Insulin 100 unit/mL injection solution Take 25 units every day by injection route at bedtime for 30 days. Humulin R Regular U-100 Insulin 100 unit/mL injection solution Take 25 units every day by injection route at bedtime for 30 days. No 25unit( s) Q1D Humulin R Regular U-100 Insulin 100 unit/mL injection solution Take 25 units every day by injection route at bedtime for 30 days. [facility] ibuprofen 800 mg tablet TAKE 1 TABLET BY MOUTH THREE TIMES DAILY NEEDED ibuprofen 800 mg tablet TAKE 1 TABLET BY MOUTH THREE TIMES DAILY NEEDED No ibuprofen 800 mg tablet TAKE 1 TABLET BY MOUTH THREE TIMES DAILY NEEDED [facility] insulin aspar prt-insulin aspart 100 unit/mL (70-30) subcutaneou s soln Inject 50 units twice a day by subcutaneou s route as directed for 30 days. insulin aspar prt-insulin aspart 100 unit/mL (70-30) subcutaneou s soln Inject 50 units twice a day by subcutaneou s route as directed for 30 days. No 50unit( s) BID insulin aspar prt-insuli n aspart 100 unit/mL (70-30) subcutaneo us soln Inject 50 units twice a day by subcutaneo us route as directed for 30 days. [facility] Kenalog 40 mg/mL suspension for injection Take 60 mg by injection route as directed for 1 day. Kenalog 40 mg/mL suspension for injection Take 60 mg by injection route as directed for 1 day. No 60mg Kenalog 40 mg/mL suspension for injection Take 60 mg by injection route as directed for 1 day. [facility] lovastatin 20 mg tablet TAKE 1 TABLET BY MOUTH ONCE DAILY AT BEDTIME lovastatin 20 mg tablet TAKE 1 TABLET BY MOUTH ONCE DAILY AT BEDTIME No lovastatin 20 mg tablet TAKE 1 TABLET BY MOUTH ONCE DAILY AT BEDTIME [facility] metformin 1,000 mg tablet TAKE 1 TABLET BY MOUTH TWICE DAILY BEFORE MEAL(S) metformin 1,000 mg tablet TAKE 1 TABLET BY MOUTH TWICE DAILY BEFORE MEAL(S) No metformin 1,000 mg tablet TAKE 1 TABLET BY MOUTH TWICE DAILY BEFORE MEAL(S) [facility] mometasone 50 mcg/actuati on nasal spray USE 2 SPRAY(S) IN EACH NOSTRIL ONCE DAILY DIRECTED FOR 14 DAYS mometasone 50 mcg/actuati on nasal spray USE 2 SPRAY(S) IN EACH NOSTRIL ONCE DAILY DIRECTED FOR 14 DAYS No mometasone 50 mcg/actuat ion nasal spray USE 2 SPRAY(S) IN EACH NOSTRIL ONCE DAILY DIRECTED FOR 14 DAYS [facility] montelukast 10 mg tablet TAKE 1 TABLET BY MOUTH ONCE DAILY DIRECTED montelukast 10 mg tablet TAKE 1 TABLET BY MOUTH ONCE DAILY DIRECTED No montelukas t 10 mg tablet TAKE 1 TABLET BY MOUTH ONCE DAILY DIRECTED [facility] promethazin e-DM 6.25 mg-15 mg/5 mL oral syrup TAKE 5 ML BY MOUTH ONCE DAILY AT BEDTIME FOR 10 DAYS promethazin e-DM 6.25 mg-15 mg/5 mL oral syrup TAKE 5 ML BY MOUTH ONCE DAILY AT BEDTIME FOR 10 DAYS No promethazi ne-DM 6.25 mg-15 mg/5 mL oral syrup TAKE 5 ML BY MOUTH ONCE DAILY AT BEDTIME FOR 10 DAYS [facility] amlodipine 10 mg tablet TAKE 1 TABLET BY MOUTH ONCE DAILY DIRECTED FOR 90 DAYS amlodipine 10 mg tablet TAKE 1 TABLET BY MOUTH ONCE DAILY DIRECTED FOR 90 DAYS No amlodipine 10 mg tablet TAKE 1 TABLET BY MOUTH ONCE DAILY DIRECTED FOR 90 DAYS [facility] bromphenira mine-pseudo ephedrine-D M 2 mg-30 mg-10 mg/5 mL oral syrup TAKE 5 ML BY MOUTH TWICE DAILY NEEDED FOR 10 DAYS bromphenira mine-pseudo ephedrine-D M 2 mg-30 mg-10 mg/5 mL oral syrup TAKE 5 ML BY MOUTH TWICE DAILY NEEDED FOR 10 DAYS No bromphenir amine-pseu doephedrin e-DM 2 mg-30 mg-10 mg/5 mL oral syrup TAKE 5 ML BY MOUTH TWICE DAILY NEEDED FOR 10 DAYS [facility] cetirizine 10 mg tablet Take 1 tablet every day by oral route. cetirizine 10 mg tablet Take 1 tablet every day by oral route. No 1 Q1D cetirizine 10 mg tablet Take 1 tablet every day by oral route. [facility] Chlorasepti c Throat [place] 1.4 % aerosol Take 1 spray every 4-6 hours by mucous route as needed. Chlorasepti c Throat [place] 1.4 % aerosol Take 1 spray every 4-6 hours by mucous route as needed. No 1spray( s) Q5H Chlorasept ic Throat [place] 1.4 % aerosol Take 1 spray every 4-6 hours by mucous route as needed. [facility] famotidine 20 mg tablet Take 1 tablet every day by oral route for 14 days. famotidine 20 mg tablet Take 1 tablet every day by oral route for 14 days. No 1 Q1D famotidine 20 mg tablet Take 1 tablet every day by oral route for 14 days. [facility] Humulin R Regular U-100 Insulin 100 unit/mL injection solution Take 25 units every day by injection route at bedtime for 30 days. Humulin R Regular U-100 Insulin 100 unit/mL injection solution Take 25 units every day by injection route at bedtime for 30 days. No 25unit( s) Q1D Humulin R Regular U-100 Insulin 100 unit/mL injection solution Take 25 units every day by injection route at bedtime for 30 days. [facility] ibuprofen 800 mg tablet TAKE 1 TABLET BY MOUTH THREE TIMES DAILY NEEDED ibuprofen 800 mg tablet TAKE 1 TABLET BY MOUTH THREE TIMES DAILY NEEDED No ibuprofen 800 mg tablet TAKE 1 TABLET BY MOUTH THREE TIMES DAILY NEEDED [facility] insulin aspar prt-insulin aspart 100 unit/mL (70-30) subcutaneou s soln Inject 50 units twice a day by subcutaneou s route as directed for 30 days. insulin aspar prt-insulin aspart 100 unit/mL (70-30) subcutaneou s soln Inject 50 units twice a day by subcutaneou s route as directed for 30 days. No 50unit( s) BID insulin aspar prt-insuli n aspart 100 unit/mL (70-30) subcutaneo us soln Inject 50 units twice a day by subcutaneo us route as directed for 30 days. [facility] lovastatin 20 mg tablet TAKE 1 TABLET BY MOUTH ONCE DAILY AT BEDTIME lovastatin 20 mg tablet TAKE 1 TABLET BY MOUTH ONCE DAILY AT BEDTIME No lovastatin 20 mg tablet TAKE 1 TABLET BY MOUTH ONCE DAILY AT BEDTIME [facility] metformin 1,000 mg tablet TAKE 1 TABLET BY MOUTH TWICE DAILY BEFORE MEAL(S) metformin 1,000 mg tablet TAKE 1 TABLET BY MOUTH TWICE DAILY BEFORE MEAL(S) No metformin 1,000 mg tablet TAKE 1 TABLET BY MOUTH TWICE DAILY BEFORE MEAL(S) [facility] mometasone 50 mcg/actuati on nasal spray USE 2 SPRAY(S) IN EACH NOSTRIL ONCE DAILY DIRECTED FOR 14 DAYS mometasone 50 mcg/actuati on nasal spray USE 2 SPRAY(S) IN EACH NOSTRIL ONCE DAILY DIRECTED FOR 14 DAYS No mometasone 50 mcg/actuat ion nasal spray USE 2 SPRAY(S) IN EACH NOSTRIL ONCE DAILY DIRECTED FOR 14 DAYS [facility] montelukast 10 mg tablet TAKE 1 TABLET BY MOUTH ONCE DAILY DIRECTED montelukast 10 mg tablet TAKE 1 TABLET BY MOUTH ONCE DAILY DIRECTED No montelukas t 10 mg tablet TAKE 1 TABLET BY MOUTH ONCE DAILY DIRECTED [facility] amlodipine 10 mg tablet TAKE 1 TABLET BY MOUTH ONCE DAILY DIRECTED FOR 90 DAYS amlodipine 10 mg tablet TAKE 1 TABLET BY MOUTH ONCE DAILY DIRECTED FOR 90 DAYS No amlodipine 10 mg tablet TAKE 1 TABLET BY MOUTH ONCE DAILY DIRECTED FOR 90 DAYS [facility] bromphenira mine-pseudo ephedrine-D M 2 mg-30 mg-10 mg/5 mL oral syrup TAKE 5 ML BY MOUTH TWICE DAILY NEEDED FOR 10 DAYS bromphenira mine-pseudo ephedrine-D M 2 mg-30 mg-10 mg/5 mL oral syrup TAKE 5 ML BY MOUTH TWICE DAILY NEEDED FOR 10 DAYS No bromphenir amine-pseu doephedrin e-DM 2 mg-30 mg-10 mg/5 mL oral syrup TAKE 5 ML BY MOUTH TWICE DAILY NEEDED FOR 10 DAYS [facility] cetirizine 10 mg tablet TAKE 1 TABLET BY MOUTH ONCE DAILY cetirizine 10 mg tablet TAKE 1 TABLET BY MOUTH ONCE DAILY No cetirizine 10 mg tablet TAKE 1 TABLET BY MOUTH ONCE DAILY [facility] Chlorasepti c Throat [place] 1.4 % aerosol Take 1 spray every 4-6 hours by mucous route as needed. Chlorasepti c Throat [place] 1.4 % aerosol Take 1 spray every 4-6 hours by mucous route as needed. No 1spray( s) Q5H Chlorasept ic Throat [place] 1.4 % aerosol Take 1 spray every 4-6 hours by mucous route as needed. [facility] famotidine 20 mg tablet TAKE 1 TABLET BY MOUTH ONCE DAILY FOR 14 DAYS famotidine 20 mg tablet TAKE 1 TABLET BY MOUTH ONCE DAILY FOR 14 DAYS No famotidine 20 mg tablet TAKE 1 TABLET BY MOUTH ONCE DAILY FOR 14 DAYS [facility] ferrous sulfate 325 mg (65 mg iron) tablet,nilsa yed release Take 1 tablet 3 times a day by oral route as directed for 30 days. ferrous sulfate 325 mg (65 mg iron) tablet,nilsa yed release Take 1 tablet 3 times a day by oral route as directed for 30 days. No 1 TID ferrous sulfate 325 mg (65 mg iron) tablet,del ayed release Take 1 tablet 3 times a day by oral route as directed for 30 days. [facility] Humulin R Regular U-100 Insulin 100 unit/mL injection solution Take 25 units every day by injection route at bedtime for 30 days. Humulin R Regular U-100 Insulin 100 unit/mL injection solution Take 25 units every day by injection route at bedtime for 30 days. No 25unit( s) Q1D Humulin R Regular U-100 Insulin 100 unit/mL injection solution Take 25 units every day by injection route at bedtime for 30 days. [facility] ibuprofen 800 mg tablet TAKE 1 TABLET BY MOUTH THREE TIMES DAILY NEEDED ibuprofen 800 mg tablet TAKE 1 TABLET BY MOUTH THREE TIMES DAILY NEEDED No ibuprofen 800 mg tablet TAKE 1 TABLET BY MOUTH THREE TIMES DAILY NEEDED [facility] insulin aspar prt-insulin aspart 100 unit/mL (70-30) subcutaneou s soln Inject 50 units twice a day by subcutaneou s route as directed for 30 days. insulin aspar prt-insulin aspart 100 unit/mL (70-30) subcutaneou s soln Inject 50 units twice a day by subcutaneou s route as directed for 30 days. No 50unit( s) BID insulin aspar prt-insuli n aspart 100 unit/mL (70-30) subcutaneo us soln Inject 50 units twice a day by subcutaneo us route as directed for 30 days. [facility] levothyroxi ne 25 mcg tablet Take 1 tablet every day by oral route in the morning for 30 days. levothyroxi ne 25 mcg tablet Take 1 tablet every day by oral route in the morning for 30 days. No 1 Q1D levothyrox ine 25 mcg tablet Take 1 tablet every day by oral route in the morning for 30 days. [facility] lovastatin 20 mg tablet TAKE 1 TABLET BY MOUTH ONCE DAILY AT BEDTIME lovastatin 20 mg tablet TAKE 1 TABLET BY MOUTH ONCE DAILY AT BEDTIME No lovastatin 20 mg tablet TAKE 1 TABLET BY MOUTH ONCE DAILY AT BEDTIME [facility] metformin 1,000 mg tablet TAKE 1 TABLET BY MOUTH TWICE DAILY BEFORE MEAL(S) metformin 1,000 mg tablet TAKE 1 TABLET BY MOUTH TWICE DAILY BEFORE MEAL(S) No metformin 1,000 mg tablet TAKE 1 TABLET BY MOUTH TWICE DAILY BEFORE MEAL(S) [facility] mometasone 50 mcg/actuati on nasal spray USE 2 SPRAY(S) IN EACH NOSTRIL ONCE DAILY DIRECTED FOR 14 DAYS mometasone 50 mcg/actuati on nasal spray USE 2 SPRAY(S) IN EACH NOSTRIL ONCE DAILY DIRECTED FOR 14 DAYS No mometasone 50 mcg/actuat ion nasal spray USE 2 SPRAY(S) IN EACH NOSTRIL ONCE DAILY DIRECTED FOR 14 DAYS [facility] montelukast 10 mg tablet TAKE 1 TABLET BY MOUTH ONCE DAILY DIRECTED montelukast 10 mg tablet TAKE 1 TABLET BY MOUTH ONCE DAILY DIRECTED No montelukas t 10 mg tablet TAKE 1 TABLET BY MOUTH ONCE DAILY DIRECTED [facility] amlodipine 10 mg tablet TAKE 1 TABLET BY MOUTH ONCE DAILY DIRECTED FOR 90 DAYS amlodipine 10 mg tablet TAKE 1 TABLET BY MOUTH ONCE DAILY DIRECTED FOR 90 DAYS No amlodipine 10 mg tablet TAKE 1 TABLET BY MOUTH ONCE DAILY DIRECTED FOR 90 DAYS [facility] bromphenira mine-pseudo ephedrine-D M 2 mg-30 mg-10 mg/5 mL oral syrup Take 5 mL every 6 hours by oral route as needed for 10 days. bromphenira mine-pseudo ephedrine-D M 2 mg-30 mg-10 mg/5 mL oral syrup Take 5 mL every 6 hours by oral route as needed for 10 days. No 5mL Q6H bromphenir amine-pseu doephedrin e-DM 2 mg-30 mg-10 mg/5 mL oral syrup Take 5 mL every 6 hours by oral route as needed for 10 days. [facility] cetirizine 10 mg tablet TAKE 1 TABLET BY MOUTH ONCE DAILY cetirizine 10 mg tablet TAKE 1 TABLET BY MOUTH ONCE DAILY No cetirizine 10 mg tablet TAKE 1 TABLET BY MOUTH ONCE DAILY [facility] Chlorasepti c Throat [place] 1.4 % aerosol Take 1 spray every 4-6 hours by mucous route as needed. Chlorasepti c Throat [place] 1.4 % aerosol Take 1 spray every 4-6 hours by mucous route as needed. No 1spray( s) Q5H Chlorasept ic Throat [place] 1.4 % aerosol Take 1 spray every 4-6 hours by mucous route as needed. [facility] Euthyrox 25 mcg tablet TAKE 1 TABLET BY MOUTH ONCE DAILY IN THE MORNING ON AN EMPTY STOMACH WITH A GLASS OF WATER ONE HOUR BEFORE EATING BREAKFAST Euthyrox 25 mcg tablet TAKE 1 TABLET BY MOUTH ONCE DAILY IN THE MORNING ON AN EMPTY STOMACH WITH A GLASS OF WATER ONE HOUR BEFORE EATING BREAKFAST No Euthyrox 25 mcg tablet TAKE 1 TABLET BY MOUTH ONCE DAILY IN THE MORNING ON AN EMPTY STOMACH WITH A GLASS OF WATER ONE HOUR BEFORE EATING BREAKFAST [facility] FeroSul 325 mg (65 mg iron) tablet TAKE 1 TABLET BY MOUTH THREE TIMES DAILY DIRECTED FeroSul 325 mg (65 mg iron) tablet TAKE 1 TABLET BY MOUTH THREE TIMES DAILY DIRECTED No FeroSul 325 mg (65 mg iron) tablet TAKE 1 TABLET BY MOUTH THREE TIMES DAILY DIRECTED [facility] Humulin R Regular U-100 Insulin 100 unit/mL injection solution Take 25 units every day by injection route at bedtime for 30 days. Humulin R Regular U-100 Insulin 100 unit/mL injection solution Take 25 units every day by injection route at bedtime for 30 days. No 25unit( s) Q1D Humulin R Regular U-100 Insulin 100 unit/mL injection solution Take 25 units every day by injection route at bedtime for 30 days. [facility] ibuprofen 800 mg tablet TAKE 1 TABLET BY MOUTH THREE TIMES DAILY NEEDED ibuprofen 800 mg tablet TAKE 1 TABLET BY MOUTH THREE TIMES DAILY NEEDED No ibuprofen 800 mg tablet TAKE 1 TABLET BY MOUTH THREE TIMES DAILY NEEDED [facility] insulin aspar prt-insulin aspart 100 unit/mL (70-30) subcutaneou s soln Inject 50 units twice a day by subcutaneou s route as directed for 30 days. insulin aspar prt-insulin aspart 100 unit/mL (70-30) subcutaneou s soln Inject 50 units twice a day by subcutaneou s route as directed for 30 days. No 50unit( s) BID insulin aspar prt-insuli n aspart 100 unit/mL (70-30) subcutaneo us soln Inject 50 units twice a day by subcutaneo us route as directed for 30 days. [facility] lisinopril 20 mg-hydrochl orothiazide 25 mg tablet TAKE 1 TABLET BY MOUTH ONCE DAILY IN THE MORNING lisinopril 20 mg-hydrochl orothiazide 25 mg tablet TAKE 1 TABLET BY MOUTH ONCE DAILY IN THE MORNING No lisinopril 20 mg-hydroch lorothiazi de 25 mg tablet TAKE 1 TABLET BY MOUTH ONCE DAILY IN THE MORNING [facility] lovastatin 20 mg tablet TAKE 1 TABLET BY MOUTH ONCE DAILY AT BEDTIME lovastatin 20 mg tablet TAKE 1 TABLET BY MOUTH ONCE DAILY AT BEDTIME No lovastatin 20 mg tablet TAKE 1 TABLET BY MOUTH ONCE DAILY AT BEDTIME [facility] metformin 1,000 mg tablet TAKE 1 TABLET BY MOUTH TWICE DAILY BEFORE MEAL(S) metformin 1,000 mg tablet TAKE 1 TABLET BY MOUTH TWICE DAILY BEFORE MEAL(S) No metformin 1,000 mg tablet TAKE 1 TABLET BY MOUTH TWICE DAILY BEFORE MEAL(S) [facility] mometasone 50 mcg/actuati on nasal spray USE 2 SPRAY(S) IN EACH NOSTRIL ONCE DAILY DIRECTED FOR 14 DAYS mometasone 50 mcg/actuati on nasal spray USE 2 SPRAY(S) IN EACH NOSTRIL ONCE DAILY DIRECTED FOR 14 DAYS No mometasone 50 mcg/actuat ion nasal spray USE 2 SPRAY(S) IN EACH NOSTRIL ONCE DAILY DIRECTED FOR 14 DAYS [facility] montelukast 10 mg tablet TAKE 1 TABLET BY MOUTH ONCE DAILY DIRECTED montelukast 10 mg tablet TAKE 1 TABLET BY MOUTH ONCE DAILY DIRECTED No montelukas t 10 mg tablet TAKE 1 TABLET BY MOUTH ONCE DAILY DIRECTED [facility] omeprazole 20 mg capsule,del ayed release TAKE ONE (1) CAPSULE(S) BY MOUTH EVERY MORNING. omeprazole 20 mg capsule,del ayed release TAKE ONE (1) CAPSULE(S) BY MOUTH EVERY MORNING. No omeprazole 20 mg capsule,de layed release TAKE ONE (1) CAPSULE(S) BY MOUTH EVERY MORNING. [facility] prednisone 20 mg tablet Take 1 tablet twice a day by oral route as directed for 7 days. prednisone 20 mg tablet Take 1 tablet twice a day by oral route as directed for 7 days. No 1 BID prednisone 20 mg tablet Take 1 tablet twice a day by oral route as directed for 7 days. [facility] Zithromax Z-Jose Antonio 250 mg tablet TAKE 2 TABLETS (500 MG) BY ORAL ROUTE ONCE DAILY FOR 1 DAY THEN 1 TABLET (250 MG) BY ORAL ROUTE ONCE DAILY FOR 4 DAYS Zithromax Z-Jose Antonio 250 mg tablet TAKE 2 TABLETS (500 MG) BY ORAL ROUTE ONCE DAILY FOR 1 DAY THEN 1 TABLET (250 MG) BY ORAL ROUTE ONCE DAILY FOR 4 DAYS No Zithromax Z-Jose Antonio 250 mg tablet TAKE 2 TABLETS (500 MG) BY ORAL ROUTE ONCE DAILY FOR 1 DAY THEN 1 TABLET (250 MG) BY ORAL ROUTE ONCE DAILY FOR 4 DAYS [facility] amlodipine 10 mg tablet TAKE 1 TABLET BY MOUTH ONCE DAILY DIRECTED FOR 90 DAYS amlodipine 10 mg tablet TAKE 1 TABLET BY MOUTH ONCE DAILY DIRECTED FOR 90 DAYS No amlodipine 10 mg tablet TAKE 1 TABLET BY MOUTH ONCE DAILY DIRECTED FOR 90 DAYS [facility] cetirizine 10 mg tablet TAKE 1 TABLET BY MOUTH ONCE DAILY cetirizine 10 mg tablet TAKE 1 TABLET BY MOUTH ONCE DAILY No cetirizine 10 mg tablet TAKE 1 TABLET BY MOUTH ONCE DAILY [facility] Chlorasepti c Throat [place] 1.4 % aerosol Take 1 spray every 4-6 hours by mucous route as needed. Chlorasepti c Throat [place] 1.4 % aerosol Take 1 spray every 4-6 hours by mucous route as needed. No 1spray( s) Q5H Chlorasept ic Throat [place] 1.4 % aerosol Take 1 spray every 4-6 hours by mucous route as needed. [facility] Euthyrox 25 mcg tablet TAKE 1 TABLET BY MOUTH ONCE DAILY IN THE MORNING ON AN EMPTY STOMACH WITH A GLASS OF WATER ONE HOUR BEFORE EATING BREAKFAST Euthyrox 25 mcg tablet TAKE 1 TABLET BY MOUTH ONCE DAILY IN THE MORNING ON AN EMPTY STOMACH WITH A GLASS OF WATER ONE HOUR BEFORE EATING BREAKFAST No Euthyrox 25 mcg tablet TAKE 1 TABLET BY MOUTH ONCE DAILY IN THE MORNING ON AN EMPTY STOMACH WITH A GLASS OF WATER ONE HOUR BEFORE EATING BREAKFAST [facility] ferrous sulfate 325 mg (65 mg iron) tablet TAKE 1 TABLET BY MOUTH THREE TIMES DAILY DIRECTED ferrous sulfate 325 mg (65 mg iron) tablet TAKE 1 TABLET BY MOUTH THREE TIMES DAILY DIRECTED No ferrous sulfate 325 mg (65 mg iron) tablet TAKE 1 TABLET BY MOUTH THREE TIMES DAILY DIRECTED [facility] Humulin R Regular U-100 Insulin 100 unit/mL injection solution Take 25 units every day by injection route at bedtime for 30 days. Humulin R Regular U-100 Insulin 100 unit/mL injection solution Take 25 units every day by injection route at bedtime for 30 days. No 25unit( s) Q1D Humulin R Regular U-100 Insulin 100 unit/mL injection solution Take 25 units every day by injection route at bedtime for 30 days. [facility] ibuprofen 800 mg tablet TAKE 1 TABLET BY MOUTH THREE TIMES DAILY NEEDED ibuprofen 800 mg tablet TAKE 1 TABLET BY MOUTH THREE TIMES DAILY NEEDED No ibuprofen 800 mg tablet TAKE 1 TABLET BY MOUTH THREE TIMES DAILY NEEDED [facility] insulin aspar prt-insulin aspart 100 unit/mL (70-30) subcutaneou s soln Inject 50 units twice a day by subcutaneou s route as directed for 30 days. insulin aspar prt-insulin aspart 100 unit/mL (70-30) subcutaneou s soln Inject 50 units twice a day by subcutaneou s route as directed for 30 days. No 50unit( s) BID insulin aspar prt-insuli n aspart 100 unit/mL (70-30) subcutaneo us soln Inject 50 units twice a day by subcutaneo us route as directed for 30 days. [facility] lisinopril 20 mg-hydrochl orothiazide 25 mg tablet TAKE 1 TABLET BY MOUTH ONCE DAILY IN THE MORNING lisinopril 20 mg-hydrochl orothiazide 25 mg tablet TAKE 1 TABLET BY MOUTH ONCE DAILY IN THE MORNING No lisinopril 20 mg-hydroch lorothiazi de 25 mg tablet TAKE 1 TABLET BY MOUTH ONCE DAILY IN THE MORNING [facility] lovastatin 20 mg tablet TAKE 1 TABLET BY MOUTH ONCE DAILY AT BEDTIME lovastatin 20 mg tablet TAKE 1 TABLET BY MOUTH ONCE DAILY AT BEDTIME No lovastatin 20 mg tablet TAKE 1 TABLET BY MOUTH ONCE DAILY AT BEDTIME [facility] metformin 1,000 mg tablet TAKE 1 TABLET BY MOUTH TWICE DAILY BEFORE MEAL(S) metformin 1,000 mg tablet TAKE 1 TABLET BY MOUTH TWICE DAILY BEFORE MEAL(S) No metformin 1,000 mg tablet TAKE 1 TABLET BY MOUTH TWICE DAILY BEFORE MEAL(S) [facility] mometasone 50 mcg/actuati on nasal spray USE 2 SPRAY(S) IN EACH NOSTRIL ONCE DAILY DIRECTED FOR 14 DAYS mometasone 50 mcg/actuati on nasal spray USE 2 SPRAY(S) IN EACH NOSTRIL ONCE DAILY DIRECTED FOR 14 DAYS No mometasone 50 mcg/actuat ion nasal spray USE 2 SPRAY(S) IN EACH NOSTRIL ONCE DAILY DIRECTED FOR 14 DAYS [facility] montelukast 10 mg tablet TAKE 1 TABLET BY MOUTH ONCE DAILY DIRECTED montelukast 10 mg tablet TAKE 1 TABLET BY MOUTH ONCE DAILY DIRECTED No montelukas t 10 mg tablet TAKE 1 TABLET BY MOUTH ONCE DAILY DIRECTED [facility] omeprazole 20 mg capsule,del ayed release TAKE ONE (1) CAPSULE(S) BY MOUTH EVERY MORNING. omeprazole 20 mg capsule,del ayed release TAKE ONE (1) CAPSULE(S) BY MOUTH EVERY MORNING. No omeprazole 20 mg capsule,de layed release TAKE ONE (1) CAPSULE(S) BY MOUTH EVERY MORNING. [facility] amlodipine 10 mg tablet TAKE 1 TABLET BY MOUTH ONCE DAILY DIRECTED FOR 90 DAYS amlodipine 10 mg tablet TAKE 1 TABLET BY MOUTH ONCE DAILY DIRECTED FOR 90 DAYS No amlodipine 10 mg tablet TAKE 1 TABLET BY MOUTH ONCE DAILY DIRECTED FOR 90 DAYS [facility] amoxicillin 875 mg-potassiu m clavulanate 125 mg tablet TAKE 1 TABLET BY MOUTH EVERY 12 HOURS DIRECTED FOR 7 DAYS amoxicillin 875 mg-potassiu m clavulanate 125 mg tablet TAKE 1 TABLET BY MOUTH EVERY 12 HOURS DIRECTED FOR 7 DAYS No amoxicilli n 875 mg-potassi um clavulanat e 125 mg tablet TAKE 1 TABLET BY MOUTH EVERY 12 HOURS DIRECTED FOR 7 DAYS [facility] Euthyrox 25 mcg tablet TAKE 1 TABLET BY MOUTH ONCE DAILY IN THE MORNING ON AN EMPTY STOMACH WITH A GLASS OF WATER ONE HOUR BEFORE EATING BREAKFAST Euthyrox 25 mcg tablet TAKE 1 TABLET BY MOUTH ONCE DAILY IN THE MORNING ON AN EMPTY STOMACH WITH A GLASS OF WATER ONE HOUR BEFORE EATING BREAKFAST No Euthyrox 25 mcg tablet TAKE 1 TABLET BY MOUTH ONCE DAILY IN THE MORNING ON AN EMPTY STOMACH WITH A GLASS OF WATER ONE HOUR BEFORE EATING BREAKFAST [facility] ferrous sulfate 325 mg (65 mg iron) tablet TAKE 1 TABLET BY MOUTH THREE TIMES DAILY DIRECTED ferrous sulfate 325 mg (65 mg iron) tablet TAKE 1 TABLET BY MOUTH THREE TIMES DAILY DIRECTED No ferrous sulfate 325 mg (65 mg iron) tablet TAKE 1 TABLET BY MOUTH THREE TIMES DAILY DIRECTED [facility] Humulin R Regular U-100 Insulin 100 unit/mL injection solution Take 25 units every day by injection route at bedtime for 30 days. Humulin R Regular U-100 Insulin 100 unit/mL injection solution Take 25 units every day by injection route at bedtime for 30 days. No 25unit( s) Q1D Humulin R Regular U-100 Insulin 100 unit/mL injection solution Take 25 units every day by injection route at bedtime for 30 days. [facility] ibuprofen 800 mg tablet TAKE 1 TABLET BY MOUTH THREE TIMES DAILY NEEDED ibuprofen 800 mg tablet TAKE 1 TABLET BY MOUTH THREE TIMES DAILY NEEDED No ibuprofen 800 mg tablet TAKE 1 TABLET BY MOUTH THREE TIMES DAILY NEEDED [facility] insulin aspar prt-insulin aspart 100 unit/mL (70-30) subcutaneou s soln Inject 50 units twice a day by subcutaneou s route as directed for 30 days. insulin aspar prt-insulin aspart 100 unit/mL (70-30) subcutaneou s soln Inject 50 units twice a day by subcutaneou s route as directed for 30 days. No 50unit( s) BID insulin aspar prt-insuli n aspart 100 unit/mL (70-30) subcutaneo us soln Inject 50 units twice a day by subcutaneo us route as directed for 30 days. [facility] lisinopril 20 mg-hydrochl orothiazide 25 mg tablet TAKE 1 TABLET BY MOUTH ONCE DAILY IN THE MORNING lisinopril 20 mg-hydrochl orothiazide 25 mg tablet TAKE 1 TABLET BY MOUTH ONCE DAILY IN THE MORNING No lisinopril 20 mg-hydroch lorothiazi de 25 mg tablet TAKE 1 TABLET BY MOUTH ONCE DAILY IN THE MORNING [facility] lovastatin 20 mg tablet TAKE 1 TABLET BY MOUTH ONCE DAILY AT BEDTIME lovastatin 20 mg tablet TAKE 1 TABLET BY MOUTH ONCE DAILY AT BEDTIME No lovastatin 20 mg tablet TAKE 1 TABLET BY MOUTH ONCE DAILY AT BEDTIME [facility] metformin 1,000 mg tablet TAKE 1 TABLET BY MOUTH TWICE DAILY BEFORE MEAL(S) metformin 1,000 mg tablet TAKE 1 TABLET BY MOUTH TWICE DAILY BEFORE MEAL(S) No metformin 1,000 mg tablet TAKE 1 TABLET BY MOUTH TWICE DAILY BEFORE MEAL(S) [facility] mometasone 50 mcg/actuati on nasal spray USE 2 SPRAY(S) IN EACH NOSTRIL ONCE DAILY DIRECTED FOR 14 DAYS mometasone 50 mcg/actuati on nasal spray USE 2 SPRAY(S) IN EACH NOSTRIL ONCE DAILY DIRECTED FOR 14 DAYS No mometasone 50 mcg/actuat ion nasal spray USE 2 SPRAY(S) IN EACH NOSTRIL ONCE DAILY DIRECTED FOR 14 DAYS [facility] omeprazole 20 mg capsule,del ayed release TAKE ONE (1) CAPSULE(S) BY MOUTH EVERY MORNING. omeprazole 20 mg capsule,del ayed release TAKE ONE (1) CAPSULE(S) BY MOUTH EVERY MORNING. No omeprazole 20 mg capsule,de layed release TAKE ONE (1) CAPSULE(S) BY MOUTH EVERY MORNING. [facility] amlodipine 10 mg tablet TAKE 1 TABLET BY MOUTH ONCE DAILY DIRECTED FOR 90 DAYS amlodipine 10 mg tablet TAKE 1 TABLET BY MOUTH ONCE DAILY DIRECTED FOR 90 DAYS No amlodipine 10 mg tablet TAKE 1 TABLET BY MOUTH ONCE DAILY DIRECTED FOR 90 DAYS [facility] Euthyrox 25 mcg tablet TAKE 1 TABLET BY MOUTH ONCE DAILY IN THE MORNING ON AN EMPTY STOMACH WITH A GLASS OF WATER ONE HOUR BEFORE EATING BREAKFAST Euthyrox 25 mcg tablet TAKE 1 TABLET BY MOUTH ONCE DAILY IN THE MORNING ON AN EMPTY STOMACH WITH A GLASS OF WATER ONE HOUR BEFORE EATING BREAKFAST No Euthyrox 25 mcg tablet TAKE 1 TABLET BY MOUTH ONCE DAILY IN THE MORNING ON AN EMPTY STOMACH WITH A GLASS OF WATER ONE HOUR BEFORE EATING BREAKFAST [facility] ferrous sulfate 325 mg (65 mg iron) tablet TAKE 1 TABLET BY MOUTH THREE TIMES DAILY DIRECTED ferrous sulfate 325 mg (65 mg iron) tablet TAKE 1 TABLET BY MOUTH THREE TIMES DAILY DIRECTED No ferrous sulfate 325 mg (65 mg iron) tablet TAKE 1 TABLET BY MOUTH THREE TIMES DAILY DIRECTED [facility] ibuprofen 800 mg tablet TAKE 1 TABLET BY mouth DAILY NEEDED ibuprofen 800 mg tablet TAKE 1 TABLET BY mouth DAILY NEEDED No ibuprofen 800 mg tablet TAKE 1 TABLET BY mouth DAILY NEEDED [facility] lisinopril 20 mg-hydrochl orothiazide 25 mg tablet TAKE 1 TABLET BY MOUTH ONCE DAILY IN THE MORNING lisinopril 20 mg-hydrochl orothiazide 25 mg tablet TAKE 1 TABLET BY MOUTH ONCE DAILY IN THE MORNING No lisinopril 20 mg-hydroch lorothiazi de 25 mg tablet TAKE 1 TABLET BY MOUTH ONCE DAILY IN THE MORNING [facility] lovastatin 10 mg tablet Take 1 tablet every day by oral route for 90 days. lovastatin 10 mg tablet Take 1 tablet every day by oral route for 90 days. No 1 Q1D lovastatin 10 mg tablet Take 1 tablet every day by oral route for 90 days. [facility] lovastatin 20 mg tablet TAKE 1 TABLET BY MOUTH ONCE DAILY AT BEDTIME lovastatin 20 mg tablet TAKE 1 TABLET BY MOUTH ONCE DAILY AT BEDTIME No lovastatin 20 mg tablet TAKE 1 TABLET BY MOUTH ONCE DAILY AT BEDTIME [facility] metformin 1,000 mg tablet TAKE 1 TABLET BY MOUTH TWICE DAILY BEFORE MEAL(S) metformin 1,000 mg tablet TAKE 1 TABLET BY MOUTH TWICE DAILY BEFORE MEAL(S) No metformin 1,000 mg tablet TAKE 1 TABLET BY MOUTH TWICE DAILY BEFORE MEAL(S) [facility] mometasone 50 mcg/actuati on nasal spray USE 2 SPRAY(S) IN EACH NOSTRIL ONCE DAILY DIRECTED FOR 14 DAYS mometasone 50 mcg/actuati on nasal spray USE 2 SPRAY(S) IN EACH NOSTRIL ONCE DAILY DIRECTED FOR 14 DAYS No mometasone 50 mcg/actuat ion nasal spray USE 2 SPRAY(S) IN EACH NOSTRIL ONCE DAILY DIRECTED FOR 14 DAYS [facility] omeprazole 20 mg capsule,del ayed release TAKE ONE (1) CAPSULE(S) BY MOUTH EVERY MORNING. omeprazole 20 mg capsule,del ayed release TAKE ONE (1) CAPSULE(S) BY MOUTH EVERY MORNING. No omeprazole 20 mg capsule,de layed release TAKE ONE (1) CAPSULE(S) BY MOUTH EVERY MORNING. [facility] amlodipine 10 mg tablet TAKE 1 TABLET BY MOUTH ONCE DAILY DIRECTED FOR 90 DAYS amlodipine 10 mg tablet TAKE 1 TABLET BY MOUTH ONCE DAILY DIRECTED FOR 90 DAYS No amlodipine 10 mg tablet TAKE 1 TABLET BY MOUTH ONCE DAILY DIRECTED FOR 90 DAYS [facility] ciprofloxac in 500 mg tablet Take 1 tablet every 12 hours by oral route for 10 days. ciprofloxac in 500 mg tablet Take 1 tablet every 12 hours by oral route for 10 days. No 1 Q12H ciprofloxa harriet 500 mg tablet Take 1 tablet every 12 hours by oral route for 10 days. [facility] Euthyrox 25 mcg tablet TAKE 1 TABLET BY MOUTH ONCE DAILY IN THE MORNING ON AN EMPTY STOMACH WITH A GLASS OF WATER ONE HOUR BEFORE EATING BREAKFAST Euthyrox 25 mcg tablet TAKE 1 TABLET BY MOUTH ONCE DAILY IN THE MORNING ON AN EMPTY STOMACH WITH A GLASS OF WATER ONE HOUR BEFORE EATING BREAKFAST No Euthyrox 25 mcg tablet TAKE 1 TABLET BY MOUTH ONCE DAILY IN THE MORNING ON AN EMPTY STOMACH WITH A GLASS OF WATER ONE HOUR BEFORE EATING BREAKFAST [facility] ferrous sulfate 325 mg (65 mg iron) tablet TAKE 1 TABLET BY MOUTH THREE TIMES DAILY DIRECTED ferrous sulfate 325 mg (65 mg iron) tablet TAKE 1 TABLET BY MOUTH THREE TIMES DAILY DIRECTED No ferrous sulfate 325 mg (65 mg iron) tablet TAKE 1 TABLET BY MOUTH THREE TIMES DAILY DIRECTED [facility] ibuprofen 800 mg tablet TAKE 1 TABLET BY mouth DAILY NEEDED ibuprofen 800 mg tablet TAKE 1 TABLET BY mouth DAILY NEEDED No ibuprofen 800 mg tablet TAKE 1 TABLET BY mouth DAILY NEEDED [facility] lisinopril 20 mg-hydrochl orothiazide 25 mg tablet TAKE 1 TABLET BY MOUTH ONCE DAILY IN THE MORNING lisinopril 20 mg-hydrochl orothiazide 25 mg tablet TAKE 1 TABLET BY MOUTH ONCE DAILY IN THE MORNING No lisinopril 20 mg-hydroch lorothiazi de 25 mg tablet TAKE 1 TABLET BY MOUTH ONCE DAILY IN THE MORNING [facility] lovastatin 10 mg tablet Take 1 tablet every day by oral route for 90 days. lovastatin 10 mg tablet Take 1 tablet every day by oral route for 90 days. No 1 Q1D lovastatin 10 mg tablet Take 1 tablet every day by oral route for 90 days. [facility] metformin 1,000 mg tablet TAKE 1 TABLET BY MOUTH TWICE DAILY BEFORE MEAL(S) metformin 1,000 mg tablet TAKE 1 TABLET BY MOUTH TWICE DAILY BEFORE MEAL(S) No metformin 1,000 mg tablet TAKE 1 TABLET BY MOUTH TWICE DAILY BEFORE MEAL(S) [facility] mometasone 50 mcg/actuati on nasal spray USE 2 SPRAY(S) IN EACH NOSTRIL ONCE DAILY DIRECTED FOR 14 DAYS mometasone 50 mcg/actuati on nasal spray USE 2 SPRAY(S) IN EACH NOSTRIL ONCE DAILY DIRECTED FOR 14 DAYS No mometasone 50 mcg/actuat ion nasal spray USE 2 SPRAY(S) IN EACH NOSTRIL ONCE DAILY DIRECTED FOR 14 DAYS [facility] omeprazole 20 mg capsule,del ayed release TAKE ONE (1) CAPSULE(S) BY MOUTH EVERY MORNING. omeprazole 20 mg capsule,del ayed release TAKE ONE (1) CAPSULE(S) BY MOUTH EVERY MORNING. No omeprazole 20 mg capsule,de layed release TAKE ONE (1) CAPSULE(S) BY MOUTH EVERY MORNING. [facility] amlodipine 10 mg tablet TAKE 1 TABLET BY MOUTH ONCE DAILY DIRECTED amlodipine 10 mg tablet TAKE 1 TABLET BY MOUTH ONCE DAILY DIRECTED No amlodipine 10 mg tablet TAKE 1 TABLET BY MOUTH ONCE DAILY DIRECTED [facility] benzonatate 100 mg capsule TAKE 1 CAPSULE BY MOUTH EVERY 8 HOURS NEEDED FOR COUGH benzonatate 100 mg capsule TAKE 1 CAPSULE BY MOUTH EVERY 8 HOURS NEEDED FOR COUGH No benzonatat e 100 mg capsule TAKE 1 CAPSULE BY MOUTH EVERY 8 HOURS NEEDED FOR COUGH [facility] Euthyrox 25 mcg tablet TAKE 1 TABLET BY MOUTH ONCE DAILY IN THE MORNING ON AN EMPTY STOMACH WITH A GLASS OF WATER ONE HOUR BEFORE EATING BREAKFAST Euthyrox 25 mcg tablet TAKE 1 TABLET BY MOUTH ONCE DAILY IN THE MORNING ON AN EMPTY STOMACH WITH A GLASS OF WATER ONE HOUR BEFORE EATING BREAKFAST No Euthyrox 25 mcg tablet TAKE 1 TABLET BY MOUTH ONCE DAILY IN THE MORNING ON AN EMPTY STOMACH WITH A GLASS OF WATER ONE HOUR BEFORE EATING BREAKFAST [facility] ferrous sulfate 325 mg (65 mg iron) tablet TAKE 1 TABLET BY MOUTH THREE TIMES DAILY DIRECTED ferrous sulfate 325 mg (65 mg iron) tablet TAKE 1 TABLET BY MOUTH THREE TIMES DAILY DIRECTED No ferrous sulfate 325 mg (65 mg iron) tablet TAKE 1 TABLET BY MOUTH THREE TIMES DAILY DIRECTED [facility] ibuprofen 800 mg tablet TAKE 1 TABLET BY MOUTH ONCE DAILY NEEDED ibuprofen 800 mg tablet TAKE 1 TABLET BY MOUTH ONCE DAILY NEEDED No ibuprofen 800 mg tablet TAKE 1 TABLET BY MOUTH ONCE DAILY NEEDED [facility] lisinopril 20 mg-hydrochl orothiazide 25 mg tablet TAKE 1 TABLET BY MOUTH ONCE DAILY IN THE MORNING lisinopril 20 mg-hydrochl orothiazide 25 mg tablet TAKE 1 TABLET BY MOUTH ONCE DAILY IN THE MORNING No lisinopril 20 mg-hydroch lorothiazi de 25 mg tablet TAKE 1 TABLET BY MOUTH ONCE DAILY IN THE MORNING [facility] lovastatin 20 mg tablet Take 1 tablet every day by oral route in the evening. lovastatin 20 mg tablet Take 1 tablet every day by oral route in the evening. No 1 Q1D lovastatin 20 mg tablet Take 1 tablet every day by oral route in the evening. [facility] metformin 1,000 mg tablet TAKE 1 TABLET BY MOUTH TWICE DAILY BEFORE MEAL(S) metformin 1,000 mg tablet TAKE 1 TABLET BY MOUTH TWICE DAILY BEFORE MEAL(S) No metformin 1,000 mg tablet TAKE 1 TABLET BY MOUTH TWICE DAILY BEFORE MEAL(S) [facility] montelukast 10 mg tablet TAKE 1 TABLET BY MOUTH ONCE DAILY DIRECTED montelukast 10 mg tablet TAKE 1 TABLET BY MOUTH ONCE DAILY DIRECTED No montelukas t 10 mg tablet TAKE 1 TABLET BY MOUTH ONCE DAILY DIRECTED [facility] omeprazole 20 mg capsule,del ayed release TAKE ONE (1) CAPSULE(S) BY MOUTH EVERY MORNING. omeprazole 20 mg capsule,del ayed release TAKE ONE (1) CAPSULE(S) BY MOUTH EVERY MORNING. No omeprazole 20 mg capsule,de layed release TAKE ONE (1) CAPSULE(S) BY MOUTH EVERY MORNING. [facility] amlodipine 10 mg tablet TAKE 1 TABLET BY MOUTH ONCE DAILY DIRECTED amlodipine 10 mg tablet TAKE 1 TABLET BY MOUTH ONCE DAILY DIRECTED No amlodipine 10 mg tablet TAKE 1 TABLET BY MOUTH ONCE DAILY DIRECTED [facility] amoxicillin 875 mg-potassiu m clavulanate 125 mg tablet TAKE 1 TABLET BY MOUTH EVERY 12 HOURS DIRECTED FOR 10 DAYS amoxicillin 875 mg-potassiu m clavulanate 125 mg tablet TAKE 1 TABLET BY MOUTH EVERY 12 HOURS DIRECTED FOR 10 DAYS No amoxicilli n 875 mg-potassi um clavulanat e 125 mg tablet TAKE 1 TABLET BY MOUTH EVERY 12 HOURS DIRECTED FOR 10 DAYS [facility] benzonatate 100 mg capsule TAKE 1 CAPSULE BY MOUTH EVERY 8 HOURS NEEDED FOR COUGH benzonatate 100 mg capsule TAKE 1 CAPSULE BY MOUTH EVERY 8 HOURS NEEDED FOR COUGH No benzonatat e 100 mg capsule TAKE 1 CAPSULE BY MOUTH EVERY 8 HOURS NEEDED FOR COUGH [facility] cetirizine 10 mg tablet Take 1 tablet every day by oral route. cetirizine 10 mg tablet Take 1 tablet every day by oral route. No 1 Q1D cetirizine 10 mg tablet Take 1 tablet every day by oral route. [facility] Euthyrox 25 mcg tablet TAKE 1 TABLET BY MOUTH ONCE DAILY IN THE MORNING ON AN EMPTY STOMACH WITH A GLASS OF WATER ONE HOUR BEFORE EATING BREAKFAST Euthyrox 25 mcg tablet TAKE 1 TABLET BY MOUTH ONCE DAILY IN THE MORNING ON AN EMPTY STOMACH WITH A GLASS OF WATER ONE HOUR BEFORE EATING BREAKFAST No Euthyrox 25 mcg tablet TAKE 1 TABLET BY MOUTH ONCE DAILY IN THE MORNING ON AN EMPTY STOMACH WITH A GLASS OF WATER ONE HOUR BEFORE EATING BREAKFAST [facility] ferrous sulfate 325 mg (65 mg iron) tablet TAKE 1 TABLET BY MOUTH THREE TIMES DAILY DIRECTED ferrous sulfate 325 mg (65 mg iron) tablet TAKE 1 TABLET BY MOUTH THREE TIMES DAILY DIRECTED No ferrous sulfate 325 mg (65 mg iron) tablet TAKE 1 TABLET BY MOUTH THREE TIMES DAILY DIRECTED [facility] ibuprofen 800 mg tablet TAKE 1 TABLET BY MOUTH ONCE DAILY NEEDED ibuprofen 800 mg tablet TAKE 1 TABLET BY MOUTH ONCE DAILY NEEDED No ibuprofen 800 mg tablet TAKE 1 TABLET BY MOUTH ONCE DAILY NEEDED [facility] Kenalog 40 mg/mL suspension for injection Take 40 mg by injection route as directed for 1 day. Kenalog 40 mg/mL suspension for injection Take 40 mg by injection route as directed for 1 day. No 40mg Kenalog 40 mg/mL suspension for injection Take 40 mg by injection route as directed for 1 day. [facility] lisinopril 20 mg-hydrochl orothiazide 25 mg tablet TAKE 1 TABLET BY MOUTH ONCE DAILY IN THE MORNING lisinopril 20 mg-hydrochl orothiazide 25 mg tablet TAKE 1 TABLET BY MOUTH ONCE DAILY IN THE MORNING No lisinopril 20 mg-hydroch lorothiazi de 25 mg tablet TAKE 1 TABLET BY MOUTH ONCE DAILY IN THE MORNING [facility] lovastatin 20 mg tablet Take 1 tablet every day by oral route in the evening. lovastatin 20 mg tablet Take 1 tablet every day by oral route in the evening. No 1 Q1D lovastatin 20 mg tablet Take 1 tablet every day by oral route in the evening. [facility] metformin 1,000 mg tablet TAKE 1 TABLET BY MOUTH TWICE DAILY BEFORE MEAL(S) metformin 1,000 mg tablet TAKE 1 TABLET BY MOUTH TWICE DAILY BEFORE MEAL(S) No metformin 1,000 mg tablet TAKE 1 TABLET BY MOUTH TWICE DAILY BEFORE MEAL(S) [facility] montelukast 10 mg tablet TAKE 1 TABLET BY MOUTH ONCE DAILY DIRECTED montelukast 10 mg tablet TAKE 1 TABLET BY MOUTH ONCE DAILY DIRECTED No montelukas t 10 mg tablet TAKE 1 TABLET BY MOUTH ONCE DAILY DIRECTED [facility] omeprazole 20 mg capsule,del ayed release TAKE ONE (1) CAPSULE(S) BY MOUTH EVERY MORNING. omeprazole 20 mg capsule,del ayed release TAKE ONE (1) CAPSULE(S) BY MOUTH EVERY MORNING. No omeprazole 20 mg capsule,de layed release TAKE ONE (1) CAPSULE(S) BY MOUTH EVERY MORNING. [facility] promethazin e-DM 6.25 mg-15 mg/5 mL oral syrup TAKE 5 ML BY MOUTH ONCE DAILY AT BEDTIME FOR 10 DAYS promethazin e-DM 6.25 mg-15 mg/5 mL oral syrup TAKE 5 ML BY MOUTH ONCE DAILY AT BEDTIME FOR 10 DAYS No promethazi ne-DM 6.25 mg-15 mg/5 mL oral syrup TAKE 5 ML BY MOUTH ONCE DAILY AT BEDTIME FOR 10 DAYS [facility] amlodipine 10 mg tablet TAKE 1 TABLET BY MOUTH ONCE DAILY DIRECTED amlodipine 10 mg tablet TAKE 1 TABLET BY MOUTH ONCE DAILY DIRECTED No amlodipine 10 mg tablet TAKE 1 TABLET BY MOUTH ONCE DAILY DIRECTED [facility] amoxicillin 875 mg-potassiu m clavulanate 125 mg tablet TAKE 1 TABLET BY MOUTH EVERY 12 HOURS DIRECTED FOR 10 DAYS amoxicillin 875 mg-potassiu m clavulanate 125 mg tablet TAKE 1 TABLET BY MOUTH EVERY 12 HOURS DIRECTED FOR 10 DAYS No amoxicilli n 875 mg-potassi um clavulanat e 125 mg tablet TAKE 1 TABLET BY MOUTH EVERY 12 HOURS DIRECTED FOR 10 DAYS [facility] benzonatate 100 mg capsule TAKE 1 CAPSULE BY MOUTH EVERY 8 HOURS NEEDED FOR COUGH benzonatate 100 mg capsule TAKE 1 CAPSULE BY MOUTH EVERY 8 HOURS NEEDED FOR COUGH No benzonatat e 100 mg capsule TAKE 1 CAPSULE BY MOUTH EVERY 8 HOURS NEEDED FOR COUGH [facility] cetirizine 10 mg tablet Take 1 tablet every day by oral route. cetirizine 10 mg tablet Take 1 tablet every day by oral route. No 1 Q1D cetirizine 10 mg tablet Take 1 tablet every day by oral route. [facility] Euthyrox 25 mcg tablet TAKE 1 TABLET BY MOUTH ONCE DAILY IN THE MORNING ON AN EMPTY STOMACH WITH A GLASS OF WATER ONE HOUR BEFORE EATING BREAKFAST Euthyrox 25 mcg tablet TAKE 1 TABLET BY MOUTH ONCE DAILY IN THE MORNING ON AN EMPTY STOMACH WITH A GLASS OF WATER ONE HOUR BEFORE EATING BREAKFAST No Euthyrox 25 mcg tablet TAKE 1 TABLET BY MOUTH ONCE DAILY IN THE MORNING ON AN EMPTY STOMACH WITH A GLASS OF WATER ONE HOUR BEFORE EATING BREAKFAST [facility] ferrous sulfate 325 mg (65 mg iron) tablet TAKE 1 TABLET BY MOUTH THREE TIMES DAILY DIRECTED ferrous sulfate 325 mg (65 mg iron) tablet TAKE 1 TABLET BY MOUTH THREE TIMES DAILY DIRECTED No ferrous sulfate 325 mg (65 mg iron) tablet TAKE 1 TABLET BY MOUTH THREE TIMES DAILY DIRECTED [facility] ibuprofen 800 mg tablet TAKE 1 TABLET BY MOUTH ONCE DAILY NEEDED ibuprofen 800 mg tablet TAKE 1 TABLET BY MOUTH ONCE DAILY NEEDED No ibuprofen 800 mg tablet TAKE 1 TABLET BY MOUTH ONCE DAILY NEEDED [facility] Kenalog 40 mg/mL suspension for injection Take 40 mg by injection route as directed for 1 day. Kenalog 40 mg/mL suspension for injection Take 40 mg by injection route as directed for 1 day. No 40mg Kenalog 40 mg/mL suspension for injection Take 40 mg by injection route as directed for 1 day. [facility] lisinopril 20 mg-hydrochl orothiazide 25 mg tablet TAKE 1 TABLET BY MOUTH ONCE DAILY IN THE MORNING lisinopril 20 mg-hydrochl orothiazide 25 mg tablet TAKE 1 TABLET BY MOUTH ONCE DAILY IN THE MORNING No lisinopril 20 mg-hydroch lorothiazi de 25 mg tablet TAKE 1 TABLET BY MOUTH ONCE DAILY IN THE MORNING [facility] lovastatin 20 mg tablet Take 1 tablet every day by oral route in the evening. lovastatin 20 mg tablet Take 1 tablet every day by oral route in the evening. No 1 Q1D lovastatin 20 mg tablet Take 1 tablet every day by oral route in the evening. [facility] metformin 1,000 mg tablet TAKE 1 TABLET BY MOUTH TWICE DAILY BEFORE MEAL(S) metformin 1,000 mg tablet TAKE 1 TABLET BY MOUTH TWICE DAILY BEFORE MEAL(S) No metformin 1,000 mg tablet TAKE 1 TABLET BY MOUTH TWICE DAILY BEFORE MEAL(S) [facility] montelukast 10 mg tablet TAKE 1 TABLET BY MOUTH ONCE DAILY DIRECTED montelukast 10 mg tablet TAKE 1 TABLET BY MOUTH ONCE DAILY DIRECTED No montelukas t 10 mg tablet TAKE 1 TABLET BY MOUTH ONCE DAILY DIRECTED [facility] omeprazole 20 mg capsule,del ayed release TAKE ONE (1) CAPSULE(S) BY MOUTH EVERY MORNING. omeprazole 20 mg capsule,del ayed release TAKE ONE (1) CAPSULE(S) BY MOUTH EVERY MORNING. No omeprazole 20 mg capsule,de layed release TAKE ONE (1) CAPSULE(S) BY MOUTH EVERY MORNING. [facility] promethazin e-DM 6.25 mg-15 mg/5 mL oral syrup TAKE 5 ML BY MOUTH ONCE DAILY AT BEDTIME FOR 10 DAYS promethazin e-DM 6.25 mg-15 mg/5 mL oral syrup TAKE 5 ML BY MOUTH ONCE DAILY AT BEDTIME FOR 10 DAYS No promethazi ne-DM 6.25 mg-15 mg/5 mL oral syrup TAKE 5 ML BY MOUTH ONCE DAILY AT BEDTIME FOR 10 DAYS [facility] amlodipine 10 mg tablet TAKE 1 TABLET BY MOUTH ONCE DAILY DIRECTED amlodipine 10 mg tablet TAKE 1 TABLET BY MOUTH ONCE DAILY DIRECTED No amlodipine 10 mg tablet TAKE 1 TABLET BY MOUTH ONCE DAILY DIRECTED [facility] cetirizine 10 mg tablet Take 1 tablet every day by oral route. cetirizine 10 mg tablet Take 1 tablet every day by oral route. No 1 Q1D cetirizine 10 mg tablet Take 1 tablet every day by oral route. [facility] doxycycline hyclate 100 mg capsule Take 1 capsule twice a day by oral route for 7 days. doxycycline hyclate 100 mg capsule Take 1 capsule twice a day by oral route for 7 days. No 1capsul e(s) BID doxycyclin e hyclate 100 mg capsule Take 1 capsule twice a day by oral route for 7 days. [facility] Euthyrox 25 mcg tablet TAKE 1 TABLET BY MOUTH ONCE DAILY IN THE MORNING ON AN EMPTY STOMACH WITH A GLASS OF WATER ONE HOUR BEFORE EATING BREAKFAST Euthyrox 25 mcg tablet TAKE 1 TABLET BY MOUTH ONCE DAILY IN THE MORNING ON AN EMPTY STOMACH WITH A GLASS OF WATER ONE HOUR BEFORE EATING BREAKFAST No Euthyrox 25 mcg tablet TAKE 1 TABLET BY MOUTH ONCE DAILY IN THE MORNING ON AN EMPTY STOMACH WITH A GLASS OF WATER ONE HOUR BEFORE EATING BREAKFAST [facility] ferrous sulfate 325 mg (65 mg iron) tablet TAKE 1 TABLET BY MOUTH THREE TIMES DAILY DIRECTED ferrous sulfate 325 mg (65 mg iron) tablet TAKE 1 TABLET BY MOUTH THREE TIMES DAILY DIRECTED No ferrous sulfate 325 mg (65 mg iron) tablet TAKE 1 TABLET BY MOUTH THREE TIMES DAILY DIRECTED [facility] fluticasone propionate 50 mcg/actuati on nasal spray,suspe nsion [place] 1 spray every day by intranasal route. 1 SPRAY TO EACH NOSTRIL fluticasone propionate 50 mcg/actuati on nasal spray,suspe nsion [place] 1 spray every day by intranasal route. 1 SPRAY TO EACH NOSTRIL No 1spray( s) Q1D fluticason e propionate 50 mcg/actuat ion nasal spray,susp ension [place] 1 spray every day by intranasal route. 1 SPRAY TO EACH NOSTRIL [facility] guaifenesin ER 600 mg tablet, extended release 12 hr Take 1 tablet every 12 hours by oral route as needed. FOR COUGH guaifenesin ER 600 mg tablet, extended release 12 hr Take 1 tablet every 12 hours by oral route as needed. FOR COUGH No 1 Q12H guaifenesi n ER 600 mg tablet, extended release 12 hr Take 1 tablet every 12 hours by oral route as needed. FOR COUGH [facility] ibuprofen 800 mg tablet TAKE 1 TABLET BY MOUTH ONCE DAILY NEEDED ibuprofen 800 mg tablet TAKE 1 TABLET BY MOUTH ONCE DAILY NEEDED No ibuprofen 800 mg tablet TAKE 1 TABLET BY MOUTH ONCE DAILY NEEDED [facility] lisinopril 20 mg-hydrochl orothiazide 25 mg tablet TAKE 1 TABLET BY MOUTH ONCE DAILY IN THE MORNING lisinopril 20 mg-hydrochl orothiazide 25 mg tablet TAKE 1 TABLET BY MOUTH ONCE DAILY IN THE MORNING No lisinopril 20 mg-hydroch lorothiazi de 25 mg tablet TAKE 1 TABLET BY MOUTH ONCE DAILY IN THE MORNING [facility] lovastatin 20 mg tablet Take 1 tablet every day by oral route in the evening. lovastatin 20 mg tablet Take 1 tablet every day by oral route in the evening. No 1 Q1D lovastatin 20 mg tablet Take 1 tablet every day by oral route in the evening. [facility] metformin 1,000 mg tablet TAKE 1 TABLET BY MOUTH TWICE DAILY BEFORE MEAL(S) metformin 1,000 mg tablet TAKE 1 TABLET BY MOUTH TWICE DAILY BEFORE MEAL(S) No metformin 1,000 mg tablet TAKE 1 TABLET BY MOUTH TWICE DAILY BEFORE MEAL(S) [facility] omeprazole 20 mg capsule,del ayed release TAKE ONE (1) CAPSULE(S) BY MOUTH EVERY MORNING. omeprazole 20 mg capsule,del ayed release TAKE ONE (1) CAPSULE(S) BY MOUTH EVERY MORNING. No omeprazole 20 mg capsule,de layed release TAKE ONE (1) CAPSULE(S) BY MOUTH EVERY MORNING. [facility] promethazin e-DM 6.25 mg-15 mg/5 mL oral syrup TAKE 5 ML BY MOUTH ONCE DAILY AT BEDTIME NEEDED FOR COUGH promethazin e-DM 6.25 mg-15 mg/5 mL oral syrup TAKE 5 ML BY MOUTH ONCE DAILY AT BEDTIME NEEDED FOR COUGH No promethazi ne-DM 6.25 mg-15 mg/5 mL oral syrup TAKE 5 ML BY MOUTH ONCE DAILY AT BEDTIME NEEDED FOR COUGH [facility] amlodipine 10 mg tablet TAKE 1 TABLET BY MOUTH ONCE DAILY DIRECTED amlodipine 10 mg tablet TAKE 1 TABLET BY MOUTH ONCE DAILY DIRECTED No amlodipine 10 mg tablet TAKE 1 TABLET BY MOUTH ONCE DAILY DIRECTED [facility] amoxicillin 875 mg-potassiu m clavulanate 125 mg tablet Take 1 tablet twice a day by oral route for 7 days. amoxicillin 875 mg-potassiu m clavulanate 125 mg tablet Take 1 tablet twice a day by oral route for 7 days. No 1 BID amoxicilli n 875 mg-potassi um clavulanat e 125 mg tablet Take 1 tablet twice a day by oral route for 7 days. [facility] cetirizine 10 mg tablet Take 1 tablet every day by oral route. cetirizine 10 mg tablet Take 1 tablet every day by oral route. No 1 Q1D cetirizine 10 mg tablet Take 1 tablet every day by oral route. [facility] fluticasone propionate 50 mcg/actuati on nasal spray,suspe nsion [place] 1 spray every day by intranasal route. fluticasone propionate 50 mcg/actuati on nasal spray,suspe nsion [place] 1 spray every day by intranasal route. No fluticason e propionate 50 mcg/actuat ion nasal spray,susp ension [place] 1 spray every day by intranasal route. [facility] ibuprofen 800 mg tablet Take 1 tablet twice a day by oral route as needed for 30 days. ibuprofen 800 mg tablet Take 1 tablet twice a day by oral route as needed for 30 days. No 1 BID ibuprofen 800 mg tablet Take 1 tablet twice a day by oral route as needed for 30 days. [facility] Kenalog 40 mg/mL suspension for injection Take 60 mg by injection route as directed. Kenalog 40 mg/mL suspension for injection Take 60 mg by injection route as directed. No 60mg Kenalog 40 mg/mL suspension for injection Take 60 mg by injection route as directed. [facility] lisinopril 20 mg-hydrochl orothiazide 25 mg tablet TAKE 1 TABLET BY MOUTH ONCE DAILY IN THE MORNING lisinopril 20 mg-hydrochl orothiazide 25 mg tablet TAKE 1 TABLET BY MOUTH ONCE DAILY IN THE MORNING No lisinopril 20 mg-hydroch lorothiazi de 25 mg tablet TAKE 1 TABLET BY MOUTH ONCE DAILY IN THE MORNING [facility] lovastatin 20 mg tablet Take 1 tablet every day by oral route in the evening. lovastatin 20 mg tablet Take 1 tablet every day by oral route in the evening. No 1 Q1D lovastatin 20 mg tablet Take 1 tablet every day by oral route in the evening. [facility] metformin 1,000 mg tablet TAKE 1 TABLET BY MOUTH TWICE DAILY BEFORE MEAL(S) metformin 1,000 mg tablet TAKE 1 TABLET BY MOUTH TWICE DAILY BEFORE MEAL(S) No metformin 1,000 mg tablet TAKE 1 TABLET BY MOUTH TWICE DAILY BEFORE MEAL(S) [facility] promethazin e-DM 6.25 mg-15 mg/5 mL oral syrup Take 5 mL every 6-8 hours by oral route as needed. promethazin e-DM 6.25 mg-15 mg/5 mL oral syrup Take 5 mL every 6-8 hours by oral route as needed. No 5mL Q7H promethazi ne-DM 6.25 mg-15 mg/5 mL oral syrup Take 5 mL every 6-8 hours by oral route as needed. [facility] amlodipine 10 mg tablet TAKE 1 TABLET BY MOUTH ONCE DAILY DIRECTED amlodipine 10 mg tablet TAKE 1 TABLET BY MOUTH ONCE DAILY DIRECTED No amlodipine 10 mg tablet TAKE 1 TABLET BY MOUTH ONCE DAILY DIRECTED [facility] cetirizine 10 mg tablet Take 1 tablet every day by oral route. cetirizine 10 mg tablet Take 1 tablet every day by oral route. No 1 Q1D cetirizine 10 mg tablet Take 1 tablet every day by oral route. [facility] ferrous sulfate 325 mg (65 mg iron) tablet Take 1 tablet twice a day by oral route. ferrous sulfate 325 mg (65 mg iron) tablet Take 1 tablet twice a day by oral route. No 1 BID ferrous sulfate 325 mg (65 mg iron) tablet Take 1 tablet twice a day by oral route. [facility] fluticasone propionate 50 mcg/actuati on nasal spray,suspe nsion [place] 1 spray every day by intranasal route. fluticasone propionate 50 mcg/actuati on nasal spray,suspe nsion [place] 1 spray every day by intranasal route. No fluticason e propionate 50 mcg/actuat ion nasal spray,susp ension [place] 1 spray every day by intranasal route. [facility] Humulin 70/30 U-100 Insulin 50 units daily (if BS is over 120) Humulin 70/30 U-100 Insulin 50 units daily (if BS is over 120) No Humulin 70/30 U-100 Insulin 50 units daily (if BS is over 120) [facility] ibuprofen 800 mg tablet Take 1 tablet twice a day by oral route as needed for 30 days. ibuprofen 800 mg tablet Take 1 tablet twice a day by oral route as needed for 30 days. No 1 BID ibuprofen 800 mg tablet Take 1 tablet twice a day by oral route as needed for 30 days. [facility] lisinopril 20 mg-hydrochl orothiazide 25 mg tablet TAKE 1 TABLET BY MOUTH ONCE DAILY IN THE MORNING lisinopril 20 mg-hydrochl orothiazide 25 mg tablet TAKE 1 TABLET BY MOUTH ONCE DAILY IN THE MORNING No lisinopril 20 mg-hydroch lorothiazi de 25 mg tablet TAKE 1 TABLET BY MOUTH ONCE DAILY IN THE MORNING [facility] lovastatin 20 mg tablet Take 1 tablet every day by oral route in the evening. lovastatin 20 mg tablet Take 1 tablet every day by oral route in the evening. No 1 Q1D lovastatin 20 mg tablet Take 1 tablet every day by oral route in the evening. [facility] Medrol ([place]) 4 mg tablets in a dose pack Take 1 dose pk by oral route as directed. Medrol ([place]) 4 mg tablets in a dose pack Take 1 dose pk by oral route as directed. No 1dose pk(s) Medrol ([place]) 4 mg tablets in a dose pack Take 1 dose pk by oral route as directed. [facility] metformin 1,000 mg tablet TAKE 1 TABLET BY MOUTH TWICE DAILY BEFORE MEAL(S) metformin 1,000 mg tablet TAKE 1 TABLET BY MOUTH TWICE DAILY BEFORE MEAL(S) No metformin 1,000 mg tablet TAKE 1 TABLET BY MOUTH TWICE DAILY BEFORE MEAL(S) [facility] promethazin e-DM 6.25 mg-15 mg/5 mL oral syrup Take 5 mL every 6-8 hours by oral route as needed. FOR COUGH promethazin e-DM 6.25 mg-15 mg/5 mL oral syrup Take 5 mL every 6-8 hours by oral route as needed. FOR COUGH No 5mL Q7H promethazi ne-DM 6.25 mg-15 mg/5 mL oral syrup Take 5 mL every 6-8 hours by oral route as needed. FOR COUGH [facility] amlodipine 10 mg tablet TAKE 1 TABLET BY MOUTH ONCE DAILY DIRECTED amlodipine 10 mg tablet TAKE 1 TABLET BY MOUTH ONCE DAILY DIRECTED No amlodipine 10 mg tablet TAKE 1 TABLET BY MOUTH ONCE DAILY DIRECTED [facility] ceftriaxone 1 gram solution for injection Take 1 g by injection route for 1 day. ceftriaxone 1 gram solution for injection Take 1 g by injection route for 1 day. No 1g ceftriaxon e 1 gram solution for injection Take 1 g by injection route for 1 day. [facility] cetirizine 10 mg tablet Take 1 tablet every day by oral route. cetirizine 10 mg tablet Take 1 tablet every day by oral route. No 1 Q1D cetirizine 10 mg tablet Take 1 tablet every day by oral route. [facility] ferrous sulfate 325 mg (65 mg iron) tablet Take 1 tablet twice a day by oral route. ferrous sulfate 325 mg (65 mg iron) tablet Take 1 tablet twice a day by oral route. No 1 BID ferrous sulfate 325 mg (65 mg iron) tablet Take 1 tablet twice a day by oral route. [facility] fluticasone propionate 50 mcg/actuati on nasal spray,suspe nsion [place] 1 spray every day by intranasal route. fluticasone propionate 50 mcg/actuati on nasal spray,suspe nsion [place] 1 spray every day by intranasal route. No fluticason e propionate 50 mcg/actuat ion nasal spray,susp ension [place] 1 spray every day by intranasal route. [facility] Humulin 70/30 U-100 Insulin 50 units daily (if BS is over 120) Humulin 70/30 U-100 Insulin 50 units daily (if BS is over 120) No Humulin 70/30 U-100 Insulin 50 units daily (if BS is over 120) [facility] ibuprofen 800 mg tablet Take 1 tablet twice a day by oral route as needed for 30 days. ibuprofen 800 mg tablet Take 1 tablet twice a day by oral route as needed for 30 days. No 1 BID ibuprofen 800 mg tablet Take 1 tablet twice a day by oral route as needed for 30 days. [facility] lidocaine HCl 10 mg/mL (1 %) injection solution Take 2 mL by injection route. lidocaine HCl 10 mg/mL (1 %) injection solution Take 2 mL by injection route. No 2mL lidocaine HCl 10 mg/mL (1 %) injection solution Take 2 mL by injection route. [facility] lisinopril 20 mg-hydrochl orothiazide 25 mg tablet TAKE 1 TABLET BY MOUTH ONCE DAILY IN THE MORNING lisinopril 20 mg-hydrochl orothiazide 25 mg tablet TAKE 1 TABLET BY MOUTH ONCE DAILY IN THE MORNING No lisinopril 20 mg-hydroch lorothiazi de 25 mg tablet TAKE 1 TABLET BY MOUTH ONCE DAILY IN THE MORNING [facility] lovastatin 20 mg tablet Take 1 tablet every day by oral route in the evening. lovastatin 20 mg tablet Take 1 tablet every day by oral route in the evening. No 1 Q1D lovastatin 20 mg tablet Take 1 tablet every day by oral route in the evening. [facility] Medrol (Jose Antonio) 4 mg tablets in a dose pack Take 1 dose pk by oral route as directed. Medrol (Jose Antonio) 4 mg tablets in a dose pack Take 1 dose pk by oral route as directed. No 1dose pk(s) Medrol (Jose Antonio) 4 mg tablets in a dose pack Take 1 dose pk by oral route as directed. [facility] metformin 1,000 mg tablet TAKE 1 TABLET BY MOUTH TWICE DAILY BEFORE MEAL(S) metformin 1,000 mg tablet TAKE 1 TABLET BY MOUTH TWICE DAILY BEFORE MEAL(S) No metformin 1,000 mg tablet TAKE 1 TABLET BY MOUTH TWICE DAILY BEFORE MEAL(S) [facility] promethazin e-DM 6.25 mg-15 mg/5 mL oral syrup Take 5 mL every 6-8 hours by oral route as needed. FOR COUGH promethazin e-DM 6.25 mg-15 mg/5 mL oral syrup Take 5 mL every 6-8 hours by oral route as needed. FOR COUGH No 5mL Q7H promethazi ne-DM 6.25 mg-15 mg/5 mL oral syrup Take 5 mL every 6-8 hours by oral route as needed. FOR COUGH [facility] amlodipine 10 mg tablet TAKE 1 TABLET BY MOUTH ONCE DAILY DIRECTED amlodipine 10 mg tablet TAKE 1 TABLET BY MOUTH ONCE DAILY DIRECTED No amlodipine 10 mg tablet TAKE 1 TABLET BY MOUTH ONCE DAILY DIRECTED [facility] ceftriaxone 1 gram solution for injection Take 1 g by injection route for 1 day. ceftriaxone 1 gram solution for injection Take 1 g by injection route for 1 day. No 1g ceftriaxon e 1 gram solution for injection Take 1 g by injection route for 1 day. [facility] cetirizine 10 mg tablet Take 1 tablet every day by oral route. cetirizine 10 mg tablet Take 1 tablet every day by oral route. No 1 Q1D cetirizine 10 mg tablet Take 1 tablet every day by oral route. [facility] ferrous sulfate 325 mg (65 mg iron) tablet Take 1 tablet twice a day by oral route. ferrous sulfate 325 mg (65 mg iron) tablet Take 1 tablet twice a day by oral route. No 1 BID ferrous sulfate 325 mg (65 mg iron) tablet Take 1 tablet twice a day by oral route. [facility] fluticasone propionate 50 mcg/actuati on nasal spray,suspe nsion [place] 1 spray every day by intranasal route. fluticasone propionate 50 mcg/actuati on nasal spray,suspe nsion [place] 1 spray every day by intranasal route. No fluticason e propionate 50 mcg/actuat ion nasal spray,susp ension [place] 1 spray every day by intranasal route. [facility] Humulin 70/30 U-100 Insulin 50 units daily (if BS is over 120) Humulin 70/30 U-100 Insulin 50 units daily (if BS is over 120) No Humulin 70/30 U-100 Insulin 50 units daily (if BS is over 120) [facility] ibuprofen 800 mg tablet Take 1 tablet twice a day by oral route as needed for 30 days. ibuprofen 800 mg tablet Take 1 tablet twice a day by oral route as needed for 30 days. No 1 BID ibuprofen 800 mg tablet Take 1 tablet twice a day by oral route as needed for 30 days. [facility] lidocaine HCl 10 mg/mL (1 %) injection solution Take 2 mL by injection route. lidocaine HCl 10 mg/mL (1 %) injection solution Take 2 mL by injection route. No 2mL lidocaine HCl 10 mg/mL (1 %) injection solution Take 2 mL by injection route. [facility] lisinopril 20 mg-hydrochl orothiazide 25 mg tablet TAKE 1 TABLET BY MOUTH ONCE DAILY IN THE MORNING lisinopril 20 mg-hydrochl orothiazide 25 mg tablet TAKE 1 TABLET BY MOUTH ONCE DAILY IN THE MORNING No lisinopril 20 mg-hydroch lorothiazi de 25 mg tablet TAKE 1 TABLET BY MOUTH ONCE DAILY IN THE MORNING [facility] lovastatin 20 mg tablet Take 1 tablet every day by oral route in the evening. lovastatin 20 mg tablet Take 1 tablet every day by oral route in the evening. No 1 Q1D lovastatin 20 mg tablet Take 1 tablet every day by oral route in the evening. [facility] Medrol ([place] Antonio) 4 mg tablets in a dose pack Take 1 dose pk by oral route as directed. Medrol ([place] Antonio) 4 mg tablets in a dose pack Take 1 dose pk by oral route as directed. No 1dose pk(s) Medrol ([place]) 4 mg tablets in a dose pack Take 1 dose pk by oral route as directed. [facility] metformin 1,000 mg tablet TAKE 1 TABLET BY MOUTH TWICE DAILY BEFORE MEAL(S) metformin 1,000 mg tablet TAKE 1 TABLET BY MOUTH TWICE DAILY BEFORE MEAL(S) No metformin 1,000 mg tablet TAKE 1 TABLET BY MOUTH TWICE DAILY BEFORE MEAL(S) [facility] promethazin e-DM 6.25 mg-15 mg/5 mL oral syrup Take 5 mL every 6-8 hours by oral route as needed. FOR COUGH promethazin e-DM 6.25 mg-15 mg/5 mL oral syrup Take 5 mL every 6-8 hours by oral route as needed. FOR COUGH No 5mL Q7H promethazi ne-DM 6.25 mg-15 mg/5 mL oral syrup Take 5 mL every 6-8 hours by oral route as needed. FOR COUGH [facility] amlodipine 10 mg tablet TAKE 1 TABLET BY MOUTH ONCE DAILY DIRECTED amlodipine 10 mg tablet TAKE 1 TABLET BY MOUTH ONCE DAILY DIRECTED No amlodipine 10 mg tablet TAKE 1 TABLET BY MOUTH ONCE DAILY DIRECTED [facility] azelastine 205.5 mcg (0.15 %) nasal spray azelastine 205.5 mcg (0.15 %) nasal spray No azelastine 205.5 mcg (0.15 %) nasal spray [facility] cefdinir 300 mg capsule Take 1 capsule every 12 hours by oral route for 10 days. cefdinir 300 mg capsule Take 1 capsule every 12 hours by oral route for 10 days. No 1capsul e(s) Q12H cefdinir 300 mg capsule Take 1 capsule every 12 hours by oral route for 10 days. [facility] cetirizine 10 mg tablet Take 1 tablet every day by oral route. cetirizine 10 mg tablet Take 1 tablet every day by oral route. No 1 Q1D cetirizine 10 mg tablet Take 1 tablet every day by oral route. [facility] FeroSul 325 mg (65 mg iron) tablet TAKE 1 TABLET BY MOUTH TWICE DAILY FeroSul 325 mg (65 mg iron) tablet TAKE 1 TABLET BY MOUTH TWICE DAILY No FeroSul 325 mg (65 mg iron) tablet TAKE 1 TABLET BY MOUTH TWICE DAILY [facility] fluticasone propionate 50 mcg/actuati on nasal spray,suspe nsion [place] 1 spray every day by intranasal route. fluticasone propionate 50 mcg/actuati on nasal spray,suspe nsion [place] 1 spray every day by intranasal route. No fluticason e propionate 50 mcg/actuat ion nasal spray,susp ension [place] 1 spray every day by intranasal route. [facility] Humulin 70/30 U-100 Insulin 50 units daily (if BS is over 120) Humulin 70/30 U-100 Insulin 50 units daily (if BS is over 120) No Humulin 70/30 U-100 Insulin 50 units daily (if BS is over 120) [facility] ibuprofen 800 mg tablet Take 1 tablet twice a day by oral route as needed for 30 days. ibuprofen 800 mg tablet Take 1 tablet twice a day by oral route as needed for 30 days. No ibuprofen 800 mg tablet Take 1 tablet twice a day by oral route as needed for 30 days. [facility] lisinopril 20 mg-hydrochl orothiazide 25 mg tablet TAKE 1 TABLET BY MOUTH ONCE DAILY IN THE MORNING lisinopril 20 mg-hydrochl orothiazide 25 mg tablet TAKE 1 TABLET BY MOUTH ONCE DAILY IN THE MORNING No lisinopril 20 mg-hydroch lorothiazi de 25 mg tablet TAKE 1 TABLET BY MOUTH ONCE DAILY IN THE MORNING [facility] lovastatin 20 mg tablet Take 1 tablet every day by oral route in the evening. lovastatin 20 mg tablet Take 1 tablet every day by oral route in the evening. No 1 Q1D lovastatin 20 mg tablet Take 1 tablet every day by oral route in the evening. [facility] metformin 1,000 mg tablet TAKE 1 TABLET BY MOUTH TWICE DAILY BEFORE MEAL(S) metformin 1,000 mg tablet TAKE 1 TABLET BY MOUTH TWICE DAILY BEFORE MEAL(S) No metformin 1,000 mg tablet TAKE 1 TABLET BY MOUTH TWICE DAILY BEFORE MEAL(S) [facility] promethazin e-DM 6.25 mg-15 mg/5 mL oral syrup Take 5 mL every 6-8 hours by oral route as needed. FOR COUGH promethazin e-DM 6.25 mg-15 mg/5 mL oral syrup Take 5 mL every 6-8 hours by oral route as needed. FOR COUGH No 5mL Q7H promethazi ne-DM 6.25 mg-15 mg/5 mL oral syrup Take 5 mL every 6-8 hours by oral route as needed. FOR COUGH [facility] amlodipine 10 mg tablet TAKE 1 TABLET BY MOUTH ONCE DAILY DIRECTED FOR 90 DAYS amlodipine 10 mg tablet TAKE 1 TABLET BY MOUTH ONCE DAILY DIRECTED FOR 90 DAYS No amlodipine 10 mg tablet TAKE 1 TABLET BY MOUTH ONCE DAILY DIRECTED FOR 90 DAYS [facility] amlodipine 10 mg tablet TAKE 1 TABLET BY MOUTH ONCE DAILY DIRECTED amlodipine 10 mg tablet TAKE 1 TABLET BY MOUTH ONCE DAILY DIRECTED No amlodipine 10 mg tablet TAKE 1 TABLET BY MOUTH ONCE DAILY DIRECTED [facility] azelastine 205.5 mcg (0.15 %) nasal spray azelastine 205.5 mcg (0.15 %) nasal spray No azelastine 205.5 mcg (0.15 %) nasal spray [facility] azithromyci n 500 mg tablet Take 1 tablet every day by oral route for 5 days. azithromyci n 500 mg tablet Take 1 tablet every day by oral route for 5 days. No 1 Q1D azithromyc in 500 mg tablet Take 1 tablet every day by oral route for 5 days. [facility] cetirizine 10 mg tablet Take 1 tablet every day by oral route. cetirizine 10 mg tablet Take 1 tablet every day by oral route. No 1 Q1D cetirizine 10 mg tablet Take 1 tablet every day by oral route. [facility] FeroSul 325 mg (65 mg iron) tablet TAKE 1 TABLET BY MOUTH TWICE DAILY FeroSul 325 mg (65 mg iron) tablet TAKE 1 TABLET BY MOUTH TWICE DAILY No FeroSul 325 mg (65 mg iron) tablet TAKE 1 TABLET BY MOUTH TWICE DAILY [facility] fluticasone propionate 50 mcg/actuati on nasal spray,suspe nsion [place] 1 spray every day by intranasal route. fluticasone propionate 50 mcg/actuati on nasal spray,suspe nsion [place] 1 spray every day by intranasal route. No fluticason e propionate 50 mcg/actuat ion nasal spray,susp ension [place] 1 spray every day by intranasal route. [facility] Humulin 70/30 U-100 Insulin 50 units daily (if BS is over 120) Humulin 70/30 U-100 Insulin 50 units daily (if BS is over 120) No Humulin 70/30 U-100 Insulin 50 units daily (if BS is over 120) [facility] ibuprofen 800 mg tablet Take 1 tablet twice a day by oral route as needed for 30 days. ibuprofen 800 mg tablet Take 1 tablet twice a day by oral route as needed for 30 days. No ibuprofen 800 mg tablet Take 1 tablet twice a day by oral route as needed for 30 days. [facility] ceftriaxone 1 gram solution for injection Take 1 g by injection route as directed for 1 day. ceftriaxone 1 gram solution for injection Take 1 g by injection route as directed for 1 day. No 1g ceftriaxon e 1 gram solution for injection Take 1 g by injection route as directed for 1 day. [facility] Kenalog 40 mg/mL suspension for injection Take 80 mg by injection route. Kenalog 40 mg/mL suspension for injection Take 80 mg by injection route. No 80mg Kenalog 40 mg/mL suspension for injection Take 80 mg by injection route. [facility] levothyroxi ne 25 mcg tablet TAKE 1 TABLET BY MOUTH ONCE DAILY IN THE MORNING ON AN EMPTY STOMACH WITH A GLASS OF WATER ONE HOUR BEFORE BREAKFAST levothyroxi ne 25 mcg tablet TAKE 1 TABLET BY MOUTH ONCE DAILY IN THE MORNING ON AN EMPTY STOMACH WITH A GLASS OF WATER ONE HOUR BEFORE BREAKFAST No levothyrox ine 25 mcg tablet TAKE 1 TABLET BY MOUTH ONCE DAILY IN THE MORNING ON AN EMPTY STOMACH WITH A GLASS OF WATER ONE HOUR BEFORE BREAKFAST [facility] lisinopril 20 mg-hydrochl orothiazide 25 mg tablet TAKE 1 TABLET BY MOUTH ONCE DAILY IN THE MORNING lisinopril 20 mg-hydrochl orothiazide 25 mg tablet TAKE 1 TABLET BY MOUTH ONCE DAILY IN THE MORNING No lisinopril 20 mg-hydroch lorothiazi de 25 mg tablet TAKE 1 TABLET BY MOUTH ONCE DAILY IN THE MORNING [facility] lovastatin 20 mg tablet Take 1 tablet every day by oral route in the evening. lovastatin 20 mg tablet Take 1 tablet every day by oral route in the evening. No 1 Q1D lovastatin 20 mg tablet Take 1 tablet every day by oral route in the evening. [facility] metformin 1,000 mg tablet TAKE 1 TABLET BY MOUTH TWICE DAILY BEFORE MEAL(S) metformin 1,000 mg tablet TAKE 1 TABLET BY MOUTH TWICE DAILY BEFORE MEAL(S) No metformin 1,000 mg tablet TAKE 1 TABLET BY MOUTH TWICE DAILY BEFORE MEAL(S) [facility] cholecalcif kourtney (vitamin D3) 1,250 mcg (50,000 unit) capsule TAKE 1 CAPSULE BY MOUTH ONCE A WEEK DIRECTED cholecalcif kourtney (vitamin D3) 1,250 mcg (50,000 unit) capsule TAKE 1 CAPSULE BY MOUTH ONCE A WEEK DIRECTED No cholecalci ferol (vitamin D3) 1,250 mcg (50,000 unit) capsule TAKE 1 CAPSULE BY MOUTH ONCE A WEEK DIRECTED [facility] Humulin R Regular U-100 Insulin 100 unit/mL injection solution Take 25 units every day by injection route at bedtime for 30 days. Humulin R Regular U-100 Insulin 100 unit/mL injection solution Take 25 units every day by injection route at bedtime for 30 days. No 25unit( s) Q1D Humulin R Regular U-100 Insulin 100 unit/mL injection solution Take 25 units every day by injection route at bedtime for 30 days. [facility] amlodipine 10 mg tablet TAKE 1 TABLET BY MOUTH ONCE DAILY DIRECTED amlodipine 10 mg tablet TAKE 1 TABLET BY MOUTH ONCE DAILY DIRECTED No amlodipine 10 mg tablet TAKE 1 TABLET BY MOUTH ONCE DAILY DIRECTED [facility] azelastine 205.5 mcg (0.15 %) nasal spray azelastine 205.5 mcg (0.15 %) nasal spray No azelastine 205.5 mcg (0.15 %) nasal spray [facility] ceftriaxone 1 gram solution for injection Take 1 g by injection route. ceftriaxone 1 gram solution for injection Take 1 g by injection route. No 1g ceftriaxon e 1 gram solution for injection Take 1 g by injection route. [facility] cetirizine 10 mg tablet Take 1 tablet every day by oral route. cetirizine 10 mg tablet Take 1 tablet every day by oral route. No 1 Q1D cetirizine 10 mg tablet Take 1 tablet every day by oral route. [facility] ibuprofen 800 mg tablet TAKE 1 TABLET BY MOUTH THREE TIMES DAILY ibuprofen 800 mg tablet TAKE 1 TABLET BY MOUTH THREE TIMES DAILY No ibuprofen 800 mg tablet TAKE 1 TABLET BY MOUTH THREE TIMES DAILY [facility] clopidogrel 75 mg tablet TAKE 1 TABLET BY MOUTH ONCE DAILY clopidogrel 75 mg tablet TAKE 1 TABLET BY MOUTH ONCE DAILY No clopidogre l 75 mg tablet TAKE 1 TABLET BY MOUTH ONCE DAILY [facility] dexamethaso ne sodium phosphate 10 mg/mL injection solution Take 10 mg by injection route. dexamethaso ne sodium phosphate 10 mg/mL injection solution Take 10 mg by injection route. No 10mg dexamethas one sodium phosphate 10 mg/mL injection solution Take 10 mg by injection route. [facility] ferrous sulfate 325 mg (65 mg iron) tablet Take 1 tablet twice a day by oral route for 90 days. ferrous sulfate 325 mg (65 mg iron) tablet Take 1 tablet twice a day by oral route for 90 days. No 1 BID ferrous sulfate 325 mg (65 mg iron) tablet Take 1 tablet twice a day by oral route for 90 days. [facility] fluticasone propionate 50 mcg/actuati on nasal spray,suspe nsion [place] 1 spray every day by intranasal route. fluticasone propionate 50 mcg/actuati on nasal spray,suspe nsion [place] 1 spray every day by intranasal route. No fluticason e propionate 50 mcg/actuat ion nasal spray,susp ension [place] 1 spray every day by intranasal route. [facility] Humulin 70/30 U-100 Insulin 50 units daily (if BS is over 120) Humulin 70/30 U-100 Insulin 50 units daily (if BS is over 120) No Humulin 70/30 U-100 Insulin 50 units daily (if BS is over 120) [facility] ibuprofen 800 mg tablet Take 1 tablet twice a day by oral route as needed. ibuprofen 800 mg tablet Take 1 tablet twice a day by oral route as needed. No 1 BID ibuprofen 800 mg tablet Take 1 tablet twice a day by oral route as needed. [facility] lidocaine (PF) 10 mg/mL (1 %) injection solution Take 2.1 mL by injection route. lidocaine (PF) 10 mg/mL (1 %) injection solution Take 2.1 mL by injection route. No 2.1mL lidocaine (PF) 10 mg/mL (1 %) injection solution Take 2.1 mL by injection route. [facility] lisinopril 20 mg-hydrochl orothiazide 25 mg tablet TAKE 1 TABLET BY MOUTH ONCE DAILY IN THE MORNING lisinopril 20 mg-hydrochl orothiazide 25 mg tablet TAKE 1 TABLET BY MOUTH ONCE DAILY IN THE MORNING No lisinopril 20 mg-hydroch lorothiazi de 25 mg tablet TAKE 1 TABLET BY MOUTH ONCE DAILY IN THE MORNING [facility] lovastatin 20 mg tablet Take 1 tablet every day by oral route in the evening. lovastatin 20 mg tablet Take 1 tablet every day by oral route in the evening. No 1 Q1D lovastatin 20 mg tablet Take 1 tablet every day by oral route in the evening. [facility] metformin 1,000 mg tablet TAKE 1 TABLET BY MOUTH TWICE DAILY BEFORE MEAL(S) metformin 1,000 mg tablet TAKE 1 TABLET BY MOUTH TWICE DAILY BEFORE MEAL(S) No metformin 1,000 mg tablet TAKE 1 TABLET BY MOUTH TWICE DAILY BEFORE MEAL(S) [facility] insulin aspar prt-insulin aspart 100 unit/mL (70-30) subcutaneou s soln Inject 50 units twice a day by subcutaneou s route as directed for 30 days. insulin aspar prt-insulin aspart 100 unit/mL (70-30) subcutaneou s soln Inject 50 units twice a day by subcutaneou s route as directed for 30 days. No 50unit( s) BID insulin aspar prt-insuli n aspart 100 unit/mL (70-30) subcutaneo us soln Inject 50 units twice a day by subcutaneo us route as directed for 30 days. [facility] promethazin e-DM 6.25 mg-15 mg/5 mL oral syrup Take 5 mL every 6-8 hours by oral route as needed. FOR COUGH promethazin e-DM 6.25 mg-15 mg/5 mL oral syrup Take 5 mL every 6-8 hours by oral route as needed. FOR COUGH No 5mL Q7H promethazi ne-DM 6.25 mg-15 mg/5 mL oral syrup Take 5 mL every 6-8 hours by oral route as needed. FOR COUGH [facility] amlodipine 10 mg tablet TAKE 1 TABLET BY MOUTH ONCE DAILY DIRECTED amlodipine 10 mg tablet TAKE 1 TABLET BY MOUTH ONCE DAILY DIRECTED No amlodipine 10 mg tablet TAKE 1 TABLET BY MOUTH ONCE DAILY DIRECTED [facility] lidocaine (PF) 10 mg/mL (1 %) injection solution Take 2.1 mL by injection route as directed for 1 day. lidocaine (PF) 10 mg/mL (1 %) injection solution Take 2.1 mL by injection route as directed for 1 day. No 2.1mL lidocaine (PF) 10 mg/mL (1 %) injection solution Take 2.1 mL by injection route as directed for 1 day. [facility] azelastine 205.5 mcg (0.15 %) nasal spray azelastine 205.5 mcg (0.15 %) nasal spray No azelastine 205.5 mcg (0.15 %) nasal spray [facility] cefdinir 300 mg capsule Take 1 capsule every 12 hours by oral route for 10 days. cefdinir 300 mg capsule Take 1 capsule every 12 hours by oral route for 10 days. No 1capsul e(s) Q12H cefdinir 300 mg capsule Take 1 capsule every 12 hours by oral route for 10 days. [facility] ceftriaxone 1 gram solution for injection Take 1 g by injection route. ceftriaxone 1 gram solution for injection Take 1 g by injection route. No 1g ceftriaxon e 1 gram solution for injection Take 1 g by injection route. [facility] cetirizine 10 mg tablet Take 1 tablet every day by oral route. cetirizine 10 mg tablet Take 1 tablet every day by oral route. No 1 Q1D cetirizine 10 mg tablet Take 1 tablet every day by oral route. [facility] clopidogrel 75 mg tablet TAKE 1 TABLET BY MOUTH ONCE DAILY clopidogrel 75 mg tablet TAKE 1 TABLET BY MOUTH ONCE DAILY No clopidogre l 75 mg tablet TAKE 1 TABLET BY MOUTH ONCE DAILY [facility] ferrous sulfate 325 mg (65 mg iron) tablet Take 1 tablet twice a day by oral route for 90 days. ferrous sulfate 325 mg (65 mg iron) tablet Take 1 tablet twice a day by oral route for 90 days. No 1 BID ferrous sulfate 325 mg (65 mg iron) tablet Take 1 tablet twice a day by oral route for 90 days. [facility] fluticasone propionate 50 mcg/actuati on nasal spray,suspe nsion [place] 1 spray every day by intranasal route. fluticasone propionate 50 mcg/actuati on nasal spray,suspe nsion [place] 1 spray every day by intranasal route. No fluticason e propionate 50 mcg/actuat ion nasal spray,susp ension [place] 1 spray every day by intranasal route. [facility] Humulin 70/30 U-100 Insulin 50 units daily (if BS is over 120) Humulin 70/30 U-100 Insulin 50 units daily (if BS is over 120) No Humulin 70/30 U-100 Insulin 50 units daily (if BS is over 120) [facility] ibuprofen 800 mg tablet Take 1 tablet twice a day by oral route as needed. ibuprofen 800 mg tablet Take 1 tablet twice a day by oral route as needed. No 1 BID ibuprofen 800 mg tablet Take 1 tablet twice a day by oral route as needed. [facility] lidocaine (PF) 10 mg/mL (1 %) injection solution Take 2.1 mL by injection route. lidocaine (PF) 10 mg/mL (1 %) injection solution Take 2.1 mL by injection route. No 2.1mL lidocaine (PF) 10 mg/mL (1 %) injection solution Take 2.1 mL by injection route. [facility] lisinopril 20 mg-hydrochl orothiazide 25 mg tablet TAKE 1 TABLET BY MOUTH ONCE DAILY IN THE MORNING lisinopril 20 mg-hydrochl orothiazide 25 mg tablet TAKE 1 TABLET BY MOUTH ONCE DAILY IN THE MORNING No lisinopril 20 mg-hydroch lorothiazi de 25 mg tablet TAKE 1 TABLET BY MOUTH ONCE DAILY IN THE MORNING [facility] lisinopril 20 mg-hydrochl orothiazide 25 mg tablet TAKE 1 TABLET BY MOUTH ONCE DAILY IN THE MORNING lisinopril 20 mg-hydrochl orothiazide 25 mg tablet TAKE 1 TABLET BY MOUTH ONCE DAILY IN THE MORNING No lisinopril 20 mg-hydroch lorothiazi de 25 mg tablet TAKE 1 TABLET BY MOUTH ONCE DAILY IN THE MORNING [facility] lovastatin 20 mg tablet Take 1 tablet every day by oral route in the evening. lovastatin 20 mg tablet Take 1 tablet every day by oral route in the evening. No 1 Q1D lovastatin 20 mg tablet Take 1 tablet every day by oral route in the evening. [facility] metformin 1,000 mg tablet TAKE 1 TABLET BY MOUTH TWICE DAILY BEFORE MEAL(S) metformin 1,000 mg tablet TAKE 1 TABLET BY MOUTH TWICE DAILY BEFORE MEAL(S) No metformin 1,000 mg tablet TAKE 1 TABLET BY MOUTH TWICE DAILY BEFORE MEAL(S) [facility] promethazin e-DM 6.25 mg-15 mg/5 mL oral syrup Take 5 mL every 6-8 hours by oral route as needed. FOR COUGH promethazin e-DM 6.25 mg-15 mg/5 mL oral syrup Take 5 mL every 6-8 hours by oral route as needed. FOR COUGH No 5mL Q7H promethazi ne-DM 6.25 mg-15 mg/5 mL oral syrup Take 5 mL every 6-8 hours by oral route as needed. FOR COUGH [facility] lovastatin 20 mg tablet TAKE 1 TABLET BY MOUTH ONCE DAILY AT BEDTIME FOR 90 DAYS lovastatin 20 mg tablet TAKE 1 TABLET BY MOUTH ONCE DAILY AT BEDTIME FOR 90 DAYS No lovastatin 20 mg tablet TAKE 1 TABLET BY MOUTH ONCE DAILY AT BEDTIME FOR 90 DAYS [facility] metformin 1,000 mg tablet TAKE 1 TABLET BY MOUTH TWICE DAILY BEFORE MEAL(S) metformin 1,000 mg tablet TAKE 1 TABLET BY MOUTH TWICE DAILY BEFORE MEAL(S) No metformin 1,000 mg tablet TAKE 1 TABLET BY MOUTH TWICE DAILY BEFORE MEAL(S) [facility] acetazolami de ER 500 mg capsule,ext ended release acetazolami de ER 500 mg capsule,ext ended release No acetazolam shaneka ER 500 mg capsule,ex tended release [facility] mometasone 50 mcg/actuati on nasal spray [place] 2 sprays every day by intranasal route as directed for 14 days. mometasone 50 mcg/actuati on nasal spray [place] 2 sprays every day by intranasal route as directed for 14 days. No 2spray( s) Q1D mometasone 50 mcg/actuat ion nasal spray [place] 2 sprays every day by intranasal route as directed for 14 days. [facility] amlodipine 10 mg tablet TAKE 1 TABLET BY MOUTH ONCE DAILY DIRECTED amlodipine 10 mg tablet TAKE 1 TABLET BY MOUTH ONCE DAILY DIRECTED No amlodipine 10 mg tablet TAKE 1 TABLET BY MOUTH ONCE DAILY DIRECTED [facility] amoxicillin 875 mg-potassiu m clavulanate 125 mg tablet Take 1 tablet twice a day by oral route for 7 days. amoxicillin 875 mg-potassiu m clavulanate 125 mg tablet Take 1 tablet twice a day by oral route for 7 days. No 1 BID amoxicilli n 875 mg-potassi um clavulanat e 125 mg tablet Take 1 tablet twice a day by oral route for 7 days. [facility] azelastine 205.5 mcg (0.15 %) nasal spray azelastine 205.5 mcg (0.15 %) nasal spray No azelastine 205.5 mcg (0.15 %) nasal spray [facility] brimonidine 0.2 % eye drops INSTILL 1 DROP INTO RIGHT EYE TWICE DAILY brimonidine 0.2 % eye drops INSTILL 1 DROP INTO RIGHT EYE TWICE DAILY No brimonidin e 0.2 % eye drops INSTILL 1 DROP INTO RIGHT EYE TWICE DAILY [facility] cetirizine 10 mg tablet TAKE 1 TABLET BY MOUTH ONCE DAILY cetirizine 10 mg tablet TAKE 1 TABLET BY MOUTH ONCE DAILY No cetirizine 10 mg tablet TAKE 1 TABLET BY MOUTH ONCE DAILY [facility] clopidogrel 75 mg tablet TAKE 1 TABLET BY MOUTH ONCE DAILY clopidogrel 75 mg tablet TAKE 1 TABLET BY MOUTH ONCE DAILY No clopidogre l 75 mg tablet TAKE 1 TABLET BY MOUTH ONCE DAILY [facility] doxycycline hyclate 100 mg capsule doxycycline hyclate 100 mg capsule No doxycyclin e hyclate 100 mg capsule [facility] ferrous sulfate 325 mg (65 mg iron) tablet Take 1 tablet twice a day by oral route for 90 days. ferrous sulfate 325 mg (65 mg iron) tablet Take 1 tablet twice a day by oral route for 90 days. No 1 BID ferrous sulfate 325 mg (65 mg iron) tablet Take 1 tablet twice a day by oral route for 90 days. [facility] fluticasone propionate 50 mcg/actuati on nasal spray,suspe nsion [place] 1 spray every day by intranasal route. fluticasone propionate 50 mcg/actuati on nasal spray,suspe nsion [place] 1 spray every day by intranasal route. No fluticason e propionate 50 mcg/actuat ion nasal spray,susp ension [place] 1 spray every day by intranasal route. [facility] gentamicin 0.3 % eye drops PLACE 2 DROPS IN AFFECTED EYE(S) FOUR TIMES A DAY FOR 7 DAYS gentamicin 0.3 % eye drops PLACE 2 DROPS IN AFFECTED EYE(S) FOUR TIMES A DAY FOR 7 DAYS No gentamicin 0.3 % eye drops PLACE 2 DROPS IN AFFECTED EYE(S) FOUR TIMES A DAY FOR 7 DAYS [facility] montelukast 10 mg tablet Take 1 tablet every day by oral route as directed for 30 days. montelukast 10 mg tablet Take 1 tablet every day by oral route as directed for 30 days. No 1 Q1D montelukas t 10 mg tablet Take 1 tablet every day by oral route as directed for 30 days. [facility] Humulin 70/30 U-100 Insulin 50 units daily (if BS is over 120) Humulin 70/30 U-100 Insulin 50 units daily (if BS is over 120) No Humulin 70/30 U-100 Insulin 50 units daily (if BS is over 120) [facility] ibuprofen 800 mg tablet TAKE 1 TABLET BY MOUTH TWICE DAILY NEEDED ibuprofen 800 mg tablet TAKE 1 TABLET BY MOUTH TWICE DAILY NEEDED No ibuprofen 800 mg tablet TAKE 1 TABLET BY MOUTH TWICE DAILY NEEDED [facility] lisinopril 20 mg-hydrochl orothiazide 25 mg tablet TAKE 1 TABLET BY MOUTH ONCE DAILY IN THE MORNING lisinopril 20 mg-hydrochl orothiazide 25 mg tablet TAKE 1 TABLET BY MOUTH ONCE DAILY IN THE MORNING No lisinopril 20 mg-hydroch lorothiazi de 25 mg tablet TAKE 1 TABLET BY MOUTH ONCE DAILY IN THE MORNING [facility] lovastatin 10 mg tablet lovastatin 10 mg tablet No lovastatin 10 mg tablet [facility] lovastatin 20 mg tablet Take 1 tablet every day by oral route in the evening. lovastatin 20 mg tablet Take 1 tablet every day by oral route in the evening. No 1 Q1D lovastatin 20 mg tablet Take 1 tablet every day by oral route in the evening. [facility] metformin 1,000 mg tablet TAKE 1 TABLET BY MOUTH TWICE DAILY BEFORE MEAL(S) metformin 1,000 mg tablet TAKE 1 TABLET BY MOUTH TWICE DAILY BEFORE MEAL(S) No metformin 1,000 mg tablet TAKE 1 TABLET BY MOUTH TWICE DAILY BEFORE MEAL(S) [facility] prednisolon e acetate 1 % eye drops,suspe nsion INSTILL 1 DROP INTO RIGHT EYE THREE TIMES DAILY prednisolon e acetate 1 % eye drops,suspe nsion INSTILL 1 DROP INTO RIGHT EYE THREE TIMES DAILY No prednisolo ne acetate 1 % eye drops,susp ension INSTILL 1 DROP INTO RIGHT EYE THREE TIMES DAILY [facility] promethazin e-DM 6.25 mg-15 mg/5 mL oral syrup Take 5 mL every 6-8 hours by oral route as needed. promethazin e-DM 6.25 mg-15 mg/5 mL oral syrup Take 5 mL every 6-8 hours by oral route as needed. No 5mL Q7H promethazi ne-DM 6.25 mg-15 mg/5 mL oral syrup Take 5 mL every 6-8 hours by oral route as needed. [facility] timolol maleate 0.5 % eye drops INSTILL 1 DROP INTO RIGHT EYE TWICE DAILY timolol maleate 0.5 % eye drops INSTILL 1 DROP INTO RIGHT EYE TWICE DAILY No timolol maleate 0.5 % eye drops INSTILL 1 DROP INTO RIGHT EYE TWICE DAILY [facility] Solu-Medrol (PF) 125 mg/2 mL solution for injection Take 125 mg by injection route as directed for 1 day. Solu-Medrol (PF) 125 mg/2 mL solution for injection Take 125 mg by injection route as directed for 1 day. No 125mg Solu-Medro l (PF) 125 mg/2 mL solution for injection Take 125 mg by injection route as directed for 1 day. [facility] amlodipine 10 mg tablet TAKE 1 TABLET BY MOUTH ONCE DAILY DIRECTED amlodipine 10 mg tablet TAKE 1 TABLET BY MOUTH ONCE DAILY DIRECTED No amlodipine 10 mg tablet TAKE 1 TABLET BY MOUTH ONCE DAILY DIRECTED [facility] brimonidine 0.2 % eye drops INSTILL 1 DROP INTO RIGHT EYE TWICE DAILY brimonidine 0.2 % eye drops INSTILL 1 DROP INTO RIGHT EYE TWICE DAILY No brimonidin e 0.2 % eye drops INSTILL 1 DROP INTO RIGHT EYE TWICE DAILY [facility] cetirizine 10 mg tablet TAKE 1 TABLET BY MOUTH ONCE DAILY cetirizine 10 mg tablet TAKE 1 TABLET BY MOUTH ONCE DAILY No cetirizine 10 mg tablet TAKE 1 TABLET BY MOUTH ONCE DAILY [facility] clopidogrel 75 mg tablet TAKE 1 TABLET BY MOUTH ONCE DAILY clopidogrel 75 mg tablet TAKE 1 TABLET BY MOUTH ONCE DAILY No clopidogre l 75 mg tablet TAKE 1 TABLET BY MOUTH ONCE DAILY [facility] fluticasone propionate 50 mcg/actuati on nasal spray,suspe nsion [place] 1 spray every day by intranasal route. fluticasone propionate 50 mcg/actuati on nasal spray,suspe nsion [place] 1 spray every day by intranasal route. No fluticason e propionate 50 mcg/actuat ion nasal spray,susp ension [place] 1 spray every day by intranasal route. [facility] gentamicin 0.3 % eye drops PLACE 2 DROPS IN AFFECTED EYE(S) FOUR TIMES A DAY FOR 7 DAYS gentamicin 0.3 % eye drops PLACE 2 DROPS IN AFFECTED EYE(S) FOUR TIMES A DAY FOR 7 DAYS No gentamicin 0.3 % eye drops PLACE 2 DROPS IN AFFECTED EYE(S) FOUR TIMES A DAY FOR 7 DAYS [facility] Humulin 70/30 U-100 Insulin 50 units daily (if BS is over 120) Humulin 70/30 U-100 Insulin 50 units daily (if BS is over 120) No Humulin 70/30 U-100 Insulin 50 units daily (if BS is over 120) [facility] ibuprofen 800 mg tablet TAKE 1 TABLET BY MOUTH TWICE DAILY NEEDED ibuprofen 800 mg tablet TAKE 1 TABLET BY MOUTH TWICE DAILY NEEDED No ibuprofen 800 mg tablet TAKE 1 TABLET BY MOUTH TWICE DAILY NEEDED [facility] lisinopril 20 mg-hydrochl orothiazide 25 mg tablet TAKE 1 TABLET BY MOUTH ONCE DAILY IN THE MORNING lisinopril 20 mg-hydrochl orothiazide 25 mg tablet TAKE 1 TABLET BY MOUTH ONCE DAILY IN THE MORNING No lisinopril 20 mg-hydroch lorothiazi de 25 mg tablet TAKE 1 TABLET BY MOUTH ONCE DAILY IN THE MORNING [facility] lovastatin 20 mg tablet Take 1 tablet every day by oral route in the evening. lovastatin 20 mg tablet Take 1 tablet every day by oral route in the evening. No 1 Q1D lovastatin 20 mg tablet Take 1 tablet every day by oral route in the evening. [facility] metformin 1,000 mg tablet TAKE 1 TABLET BY MOUTH TWICE DAILY BEFORE MEAL(S) metformin 1,000 mg tablet TAKE 1 TABLET BY MOUTH TWICE DAILY BEFORE MEAL(S) No metformin 1,000 mg tablet TAKE 1 TABLET BY MOUTH TWICE DAILY BEFORE MEAL(S) [facility] promethazin e-DM 6.25 mg-15 mg/5 mL oral syrup Take 5 mL every 6-8 hours by oral route as needed. For Cough promethazin e-DM 6.25 mg-15 mg/5 mL oral syrup Take 5 mL every 6-8 hours by oral route as needed. For Cough No 5mL Q7H promethazi ne-DM 6.25 mg-15 mg/5 mL oral syrup Take 5 mL every 6-8 hours by oral route as needed. For Cough [facility] Solu-Medrol (PF) 125 mg/2 mL solution for injection Take 125 mg by injection route. Solu-Medrol (PF) 125 mg/2 mL solution for injection Take 125 mg by injection route. No 125mg Solu-Medro l (PF) 125 mg/2 mL solution for injection Take 125 mg by injection route. [facility] timolol maleate 0.5 % eye drops INSTILL 1 DROP INTO RIGHT EYE TWICE DAILY timolol maleate 0.5 % eye drops INSTILL 1 DROP INTO RIGHT EYE TWICE DAILY No timolol maleate 0.5 % eye drops INSTILL 1 DROP INTO RIGHT EYE TWICE DAILY [facility] Zithromax Z-Jose Antonio 250 mg tablet TAKE 2 TABLETS (500 MG) BY ORAL ROUTE ONCE DAILY FOR 1 DAY THEN 1 TABLET (250 MG) BY ORAL ROUTE ONCE DAILY FOR 4 DAYS Zithromax Z-Jose Antonio 250 mg tablet TAKE 2 TABLETS (500 MG) BY ORAL ROUTE ONCE DAILY FOR 1 DAY THEN 1 TABLET (250 MG) BY ORAL ROUTE ONCE DAILY FOR 4 DAYS No Zithromax Z-Jose Antonio 250 mg tablet TAKE 2 TABLETS (500 MG) BY ORAL ROUTE ONCE DAILY FOR 1 DAY THEN 1 TABLET (250 MG) BY ORAL ROUTE ONCE DAILY FOR 4 DAYS [facility] amlodipine 10 mg tablet TAKE 1 TABLET BY MOUTH ONCE DAILY DIRECTED amlodipine 10 mg tablet TAKE 1 TABLET BY MOUTH ONCE DAILY DIRECTED No amlodipine 10 mg tablet TAKE 1 TABLET BY MOUTH ONCE DAILY DIRECTED [facility] brimonidine 0.2 % eye drops INSTILL 1 DROP INTO RIGHT EYE TWICE DAILY brimonidine 0.2 % eye drops INSTILL 1 DROP INTO RIGHT EYE TWICE DAILY No brimonidin e 0.2 % eye drops INSTILL 1 DROP INTO RIGHT EYE TWICE DAILY [facility] cetirizine 10 mg tablet TAKE 1 TABLET BY MOUTH ONCE DAILY cetirizine 10 mg tablet TAKE 1 TABLET BY MOUTH ONCE DAILY No cetirizine 10 mg tablet TAKE 1 TABLET BY MOUTH ONCE DAILY [facility] clopidogrel 75 mg tablet TAKE 1 TABLET BY MOUTH ONCE DAILY clopidogrel 75 mg tablet TAKE 1 TABLET BY MOUTH ONCE DAILY No clopidogre l 75 mg tablet TAKE 1 TABLET BY MOUTH ONCE DAILY [facility] fluticasone propionate 50 mcg/actuati on nasal spray,suspe nsion [place] 1 spray every day by intranasal route. fluticasone propionate 50 mcg/actuati on nasal spray,suspe nsion [place] 1 spray every day by intranasal route. No fluticason e propionate 50 mcg/actuat ion nasal spray,susp ension [place] 1 spray every day by intranasal route. [facility] gentamicin 0.3 % eye drops PLACE 2 DROPS IN AFFECTED EYE(S) FOUR TIMES A DAY FOR 7 DAYS gentamicin 0.3 % eye drops PLACE 2 DROPS IN AFFECTED EYE(S) FOUR TIMES A DAY FOR 7 DAYS No gentamicin 0.3 % eye drops PLACE 2 DROPS IN AFFECTED EYE(S) FOUR TIMES A DAY FOR 7 DAYS [facility] Humulin 70/30 U-100 Insulin 50 units daily (if BS is over 120) Humulin 70/30 U-100 Insulin 50 units daily (if BS is over 120) No Humulin 70/30 U-100 Insulin 50 units daily (if BS is over 120) [facility] ibuprofen 800 mg tablet TAKE 1 TABLET BY MOUTH TWICE DAILY NEEDED ibuprofen 800 mg tablet TAKE 1 TABLET BY MOUTH TWICE DAILY NEEDED No ibuprofen 800 mg tablet TAKE 1 TABLET BY MOUTH TWICE DAILY NEEDED [facility] lisinopril 20 mg-hydrochl orothiazide 25 mg tablet TAKE 1 TABLET BY MOUTH ONCE DAILY IN THE MORNING lisinopril 20 mg-hydrochl orothiazide 25 mg tablet TAKE 1 TABLET BY MOUTH ONCE DAILY IN THE MORNING No lisinopril 20 mg-hydroch lorothiazi de 25 mg tablet TAKE 1 TABLET BY MOUTH ONCE DAILY IN THE MORNING [facility] lovastatin 20 mg tablet Take 1 tablet every day by oral route in the evening. lovastatin 20 mg tablet Take 1 tablet every day by oral route in the evening. No 1 Q1D lovastatin 20 mg tablet Take 1 tablet every day by oral route in the evening. [facility] metformin 1,000 mg tablet TAKE 1 TABLET BY MOUTH TWICE DAILY BEFORE MEAL(S) metformin 1,000 mg tablet TAKE 1 TABLET BY MOUTH TWICE DAILY BEFORE MEAL(S) No metformin 1,000 mg tablet TAKE 1 TABLET BY MOUTH TWICE DAILY BEFORE MEAL(S) [facility] promethazin e-DM 6.25 mg-15 mg/5 mL oral syrup TAKE 5 ML BY MOUTH EVERY 6 TO 8 HOURS NEEDED promethazin e-DM 6.25 mg-15 mg/5 mL oral syrup TAKE 5 ML BY MOUTH EVERY 6 TO 8 HOURS NEEDED No promethazi ne-DM 6.25 mg-15 mg/5 mL oral syrup TAKE 5 ML BY MOUTH EVERY 6 TO 8 HOURS NEEDED [facility] Solu-Medrol (PF) 125 mg/2 mL solution for injection Take 125 mg by injection route. Solu-Medrol (PF) 125 mg/2 mL solution for injection Take 125 mg by injection route. No 125mg Solu-Medro l (PF) 125 mg/2 mL solution for injection Take 125 mg by injection route. [facility] timolol maleate 0.5 % eye drops INSTILL 1 DROP INTO RIGHT EYE TWICE DAILY timolol maleate 0.5 % eye drops INSTILL 1 DROP INTO RIGHT EYE TWICE DAILY No timolol maleate 0.5 % eye drops INSTILL 1 DROP INTO RIGHT EYE TWICE DAILY [facility] Immunizations Ordered Immunization Name Filled Immunization Name Date Status Comments Source COVID-19, mRNA, LNP-S, PF, 100 mcg/0.5 mL dose ([facility]) COVID-19, mRNA, LNP-S, PF, 100 mcg/0.5 mL dose ([facility]) 2021-10-06 00:00:[address] [facility] COVID-19, mRNA, LNP-S, PF, 100 mcg/0.5 mL dose ([facility]) COVID-19, mRNA, LNP-S, PF, 100 mcg/0.5 mL dose ([facility]) 2021-10-06 00:00:00 [facility] COVID-19, mRNA, LNP-S, PF, 100 mcg/0.5 mL dose ([facility]) COVID-19, mRNA, LNP-S, PF, 100 mcg/0.5 mL dose ([facility]) 2021-10-06 00:00:[address] [facility] COVID-19, mRNA, LNP-S, PF, 100 mcg/0.5 mL dose ([facility]) COVID-19, mRNA, LNP-S, PF, 100 mcg/0.5 mL dose ([facility]) 2021-10-06 00:00:[address] [facility] COVID-19, mRNA, LNP-S, PF, 100 mcg/0.5 mL dose ([facility]) COVID-19, mRNA, LNP-S, PF, 100 mcg/0.5 mL dose ([facility]) 2021-10-06 00:00:[address] [facility] COVID-19, mRNA, LNP-S, PF, 100 mcg/0.5 mL dose ([facility]) COVID-19, mRNA, LNP-S, PF, 100 mcg/0.5 mL dose ([facility]) 2021-10-06 00:00:00 [facility] COVID-19, mRNA, LNP-S, PF, 100 mcg/0.5 mL dose ([facility]) COVID-19, mRNA, LNP-S, PF, 100 mcg/0.5 mL dose ([facility]) 2021-10-06 00:00:00 [facility] COVID-19, mRNA, LNP-S, PF, 100 mcg/0.5 mL dose ([facility]) COVID-19, mRNA, LNP-S, PF, 100 mcg/0.5 mL dose ([facility]) 2021-10-06 00:00:00 [facility] COVID-19, mRNA, LNP-S, PF, 100 mcg/0.5 mL dose ([facility]) COVID-19, mRNA, LNP-S, PF, 100 mcg/0.5 mL dose ([facility]) 2021-10-06 00:00:00 [facility] COVID-19, mRNA, LNP-S, PF, 100 mcg/0.5 mL dose ([facility]) COVID-19, mRNA, LNP-S, PF, 100 mcg/0.5 mL dose ([facility]) 2021-10-06 00:00:00 Completed [facility] COVID-19, mRNA, LNP-S, PF, 100 mcg/0.5 mL dose ([facility]) COVID-19, mRNA, LNP-S, PF, 100 mcg/0.5 mL dose ([facility]) 2021-10-06 00:00:00 Completed [facility] COVID-19, mRNA, LNP-S, PF, 100 mcg/0.5 mL dose ([facility]) COVID-19, mRNA, LNP-S, PF, 100 mcg/0.5 mL dose ([facility]) 2021-10-06 00:00:[address] [facility] COVID-19, mRNA, LNP-S, PF, 100 mcg/0.5 mL dose ([facility]) COVID-19, mRNA, LNP-S, PF, 100 mcg/0.5 mL dose ([facility]) 2021-10-06 00:00:00 Completed [facility] COVID-19, mRNA, LNP-S, PF, 100 mcg/0.5 mL dose ([facility]) COVID-19, mRNA, LNP-S, PF, 100 mcg/0.5 mL dose ([facility]) 2021-10-06 00:00:00 [facility] COVID-19, mRNA, LNP-S, PF, 100 mcg/0.5 mL dose COVID-19, mRNA, LNP-S, PF, 100 mcg/0.5 mL dose 2021-06-01 00:00:00 Completed [facility] COVID-19, mRNA, LNP-S, PF, 100 mcg/0.5 mL dose COVID-19, mRNA, LNP-S, PF, 100 mcg/0.5 mL dose 2021-06-01 00:00:00 Completed [facility] COVID-19, mRNA, LNP-S, PF, 100 mcg/0.5 mL dose COVID-19, mRNA, LNP-S, PF, 100 mcg/0.5 mL dose 2021-06-01 00:00:00 Completed [facility] COVID-19, mRNA, LNP-S, PF, 100 mcg/0.5 mL dose ([facility]) COVID-19, mRNA, LNP-S, PF, 100 mcg/0.5 mL dose ([facility]) 2021-06-01 00:00:[address] [facility] COVID-19, mRNA, LNP-S, PF, 100 mcg/0.5 mL dose ([facility]) COVID-19, mRNA, LNP-S, PF, 100 mcg/0.5 mL dose ([facility]) 2021-06-01 00:00:[address] [facility] COVID-19, mRNA, LNP-S, PF, 100 mcg/0.5 mL dose ([facility]) COVID-19, mRNA, LNP-S, PF, 100 mcg/0.5 mL dose ([facility]) 2021-06-01 00:00:[address] [facility] COVID-19, mRNA, LNP-S, PF, 100 mcg/0.5 mL dose ([facility]) COVID-19, mRNA, LNP-S, PF, 100 mcg/0.5 mL dose ([facility]) 2021-06-01 00:00:[address] [facility] COVID-19, mRNA, LNP-S, PF, 100 mcg/0.5 mL dose ([facility]) COVID-19, mRNA, LNP-S, PF, 100 mcg/0.5 mL dose ([facility]) 2021-06-01 00:00:[address] [facility] COVID-19, mRNA, LNP-S, PF, 100 mcg/0.5 mL dose ([facility]) COVID-19, mRNA, LNP-S, PF, 100 mcg/0.5 mL dose ([facility]) 2021-06-01 00:00:[address] [facility] COVID-19, mRNA, LNP-S, PF, 100 mcg/0.5 mL dose ([facility]) COVID-19, mRNA, LNP-S, PF, 100 mcg/0.5 mL dose ([facility]) 2021-06-01 00:00:00 Completed [facility] COVID-19, mRNA, LNP-S, PF, 100 mcg/0.5 mL dose ([facility]) COVID-19, mRNA, LNP-S, PF, 100 mcg/0.5 mL dose ([facility]) 2021-06-01 00:00:00 Completed [facility] COVID-19, mRNA, LNP-S, PF, 100 mcg/0.5 mL dose ([facility]) COVID-19, mRNA, LNP-S, PF, 100 mcg/0.5 mL dose ([facility]) 2021-06-01 00:00:00 Completed [facility] COVID-19, mRNA, LNP-S, PF, 100 mcg/0.5 mL dose ([facility]) COVID-19, mRNA, LNP-S, PF, 100 mcg/0.5 mL dose ([facility]) 2021-06-01 00:00:[address] [facility] COVID-19, mRNA, LNP-S, PF, 100 mcg/0.5 mL dose ([facility]) COVID-19, mRNA, LNP-S, PF, 100 mcg/0.5 mL dose ([facility]) 2021-06-01 00:00:[address] [facility] COVID-19, mRNA, LNP-S, PF, 100 mcg/0.5 mL dose ([facility]) COVID-19, mRNA, LNP-S, PF, 100 mcg/0.5 mL dose ([facility]) 2021-06-01 00:00:[address] [facility] COVID-19, mRNA, LNP-S, PF, 100 mcg/0.5 mL dose ([facility]) COVID-19, mRNA, LNP-S, PF, 100 mcg/0.5 mL dose (Modern[facility]) 2021-06-01 00:00:00 Completed [facility] COVID-19, mRNA, LNP-S, PF, 100 mcg/0.5 mL dose (Modern[facility]) COVID-19, mRNA, LNP-S, PF, 100 mcg/0.5 mL dose (Modern[facility]) 2021-06-01 00:00:00 Completed [facility] COVID-19, mRNA, LNP-S, PF, 100 mcg/0.5 mL dose (Modern[facility]) COVID-19, mRNA, LNP-S, PF, 100 mcg/0.5 mL dose ([facility]) Unknown Completed [facility] COVID-19, mRNA, LNP-S, PF, 100 mcg/0.5 mL dose (Modern[facility]) COVID-19, mRNA, LNP-S, PF, 100 mcg/0.5 mL dose ([facility]) Unknown Completed [facility] COVID-19, mRNA, LNP-S, PF, 100 mcg/0.5 mL dose ([facility]) COVID-19, mRNA, LNP-S, PF, 100 mcg/0.5 mL dose ([facility]) Unknown Completed [facility] COVID-19, mRNA, LNP-S, PF, 100 mcg/0.5 mL dose ([facility]) COVID-19, mRNA, LNP-S, PF, 100 mcg/0.5 mL dose ([facility]) Unknown Completed [facility] COVID-19, mRNA, LNP-S, PF, 100 mcg/0.5 mL dose ([facility]) COVID-19, mRNA, LNP-S, PF, 100 mcg/0.5 mL dose ([facility]) Unknown Completed [facility] COVID-19, mRNA, LNP-S, PF, 100 mcg/0.5 mL dose ([facility]) COVID-19, mRNA, LNP-S, PF, 100 mcg/0.5 mL dose ([facility]) Unknown Completed [facility] Vital Signs Vital Name Observation Time Observation Value Comments S ource BP Diastolic 2023-09-27 00:00:00 75 mm[Hg] [facility] Height 2023-09-27 00:00:00 71 [in_i] [facility] BP Systolic 2023-09-27 00:00:00 119 mm[Hg] [facility] BP Diastolic 2023-09-21 00:00:00 69 mm[Hg] [facility] Body Weight 2023-09-21 00:00:00 2972.8 [oz_av] [facility] Height 2023-09-21 00:00:00 71 [in_i] [facility] BP Systolic 2023-09-21 00:00:00 137 mm[Hg] [facility] BMI (Body Mass Index) 2023-09-21 00:00:00 25.9 kg/m2 [facility] BMI (Body Mass Index) 2023-08-18 00:00:00 25.2 kg/m2 [facility] BP Systolic 2023-08-18 00:00:00 141 mm[Hg] [facility] Height 2023-08-18 00:00:00 71 [in_i] [facility] Body Weight 2023-08-18 00:00:00 2892.8 [oz_av] [facility] BP Diastolic 2023-08-18 00:00:00 72 mm[Hg] [facility] BP Diastolic 2023-05-18 00:00:00 79 mm[Hg] [facility] Height 2023-05-18 00:00:00 71 [in_i] [facility] BMI (Body Mass Index) 2023-05-18 00:00:00 26.2 kg/m2 [facility] BP Systolic 2023-05-18 00:00:00 147 mm[Hg] [facility] Body Weight 2023-05-18 00:00:00 3001.6 [oz_av] [facility] BP Diastolic 2023-01-31 00:00:00 74 mm[Hg] [facility] Height 2023-01-31 00:00:00 71 [in_i] [facility] BP Systolic 2023-01-31 00:00:00 153 mm[Hg] [facility] Body Weight 2023-01-31 00:00:00 3036.8 [oz_av] [facility] BP Diastolic 2022-12-15 00:00:00 59 mm[Hg] [facility] Height 2022-12-15 00:00:00 71 [in_i] [facility] BMI (Body Mass Index) 2022-12-15 00:00:00 27.2 kg/m2 [facility] BP Systolic 2022-12-15 00:00:00 154 mm[Hg] [facility] Body Weight 2022-12-15 00:00:00 3120 [oz_av] [facility] BP Diastolic 2022-11-17 00:00:00 63 mm[Hg] [facility] Height 2022-11-17 00:00:00 71 [in_i] [facility] BMI (Body Mass Index) 2022-11-17 00:00:00 27.2 kg/m2 [facility] BP Systolic 2022-11-17 00:00:00 144 mm[Hg] [facility] Body Weight 2022-11-17 00:00:00 3120 [oz_av] [facility] BP Diastolic 2022-11-02 00:00:00 65 mm[Hg] [facility] Height 2022-11-02 00:00:00 71 [in_i] [facility] BMI (Body Mass Index) 2022-11-02 00:00:00 26.9 kg/m2 [facility] BP Systolic 2022-11-02 00:00:00 138 mm[Hg] [facility] Body Weight 2022-11-02 00:00:00 3091.2 [oz_av] [facility] BP Diastolic 2022-09-08 00:00:00 72 mm[Hg] [facility] Height 2022-09-08 00:00:00 71 [in_i] [facility] BMI (Body Mass Index) 2022-09-08 00:00:00 26.4 kg/m2 [facility] BP Systolic 2022-09-08 00:00:00 149 mm[Hg] [facility] Body Weight 2022-09-08 00:00:00 3030.4 [oz_av] [facility] BP Diastolic 2022-07-26 00:00:00 67 mm[Hg] [facility] Height 2022-07-26 00:00:00 71 [in_i] [facility] BMI (Body Mass Index) 2022-07-26 00:00:00 25.8 kg/m2 [facility] BP Systolic 2022-07-26 00:00:00 150 mm[Hg] [facility] Body Weight 2022-07-26 00:00:00 2956.8 [oz_av] [facility] BP Diastolic 2021-10-28 00:00:00 69 mm[Hg] [facility] Height 2021-10-28 00:00:00 71 [in_i] [facility] BMI (Body Mass Index) 2021-10-28 00:00:00 26.2 kg/m2 [facility] BP Systolic 2021-10-28 00:00:00 155 mm[Hg] [facility] Body Weight 2021-10-28 00:00:00 3008 [oz_av] [facility] BP Diastolic 2021-10-07 00:00:00 74 mm[Hg] [facility] Height 2021-10-07 00:00:00 71 [in_i] [facility] BMI (Body Mass Index) 2021-10-07 00:00:00 26.4 kg/m2 [facility] BP Systolic 2021-10-07 00:00:00 159 mm[Hg] [facility] Body Weight 2021-10-07 00:00:00 3027.2 [oz_av] [facility] BP Diastolic 2021-08-05 00:00:00 83 mm[Hg] [facility] Height 2021-08-05 00:00:00 71 [in_i] [facility] BMI (Body Mass Index) 2021-08-05 00:00:00 25.9 kg/m2 [facility] BP Systolic 2021-08-05 00:00:00 154 mm[Hg] [facility] Body Weight 2021-08-05 00:00:00 2969.6 [oz_av] [facility] BP Diastolic 2021-07-03 00:00:00 67 mm[Hg] [facility] Height 2021-07-03 00:00:00 71 [in_i] [facility] BMI (Body Mass Index) 2021-07-03 00:00:00 25.8 kg/m2 [facility] BP Systolic 2021-07-03 00:00:00 131 mm[Hg] [facility] Body Weight 2021-07-03 00:00:00 2956.8 [oz_av] [facility] BP Diastolic 2021-06-22 00:00:00 80 mm[Hg] [facility] Height 2021-06-22 00:00:00 71 [in_i] [facility] BMI (Body Mass Index) 2021-06-22 00:00:00 26.6 kg/m2 [facility] BP Systolic 2021-06-22 00:00:00 129 mm[Hg] [facility] Body Weight 2021-06-22 00:00:00 3048 [oz_av] [facility] BP Diastolic 2021-04-22 00:00:00 83 mm[Hg] [facility] Height 2021-04-22 00:00:00 71 [in_i] [facility] BP Systolic 2021-04-22 00:00:00 171 mm[Hg] [facility] BP Diastolic 2021-04-15 00:00:00 71 mm[Hg] [facility] Height 2021-04-15 00:00:00 71 [in_i] [facility] BMI (Body Mass Index) 2021-04-15 00:00:00 27.1 kg/m2 [facility] BP Systolic 2021-04-15 00:00:00 154 mm[Hg] [facility] Body Weight 2021-04-15 00:00:00 3104 [oz_av] [facility] BP Diastolic 2021-04-01 00:00:00 70 mm[Hg] [facility] Height 2021-04-01 00:00:00 71 [in_i] [facility] BP Systolic 2021-04-01 00:00:00 159 mm[Hg] [facility] BP Diastolic 2021-03-25 00:00:00 75 mm[Hg] [facility] Height 2021-03-25 00:00:00 71 [in_i] [facility] BMI (Body Mass Index) 2021-03-25 00:00:00 27.1 kg/m2 [facility] BP Systolic 2021-03-25 00:00:00 139 mm[Hg] [facility] Body Weight 2021-03-25 00:00:00 3107.2 [oz_av] [facility] BP Diastolic 2020-12-10 00:00:00 78 mm[Hg] [facility] Height 2020-12-10 00:00:00 71 [in_i] [facility] BMI (Body Mass Index) 2020-12-10 00:00:00 27.4 kg/m2 [facility] BP Systolic 2020-12-10 00:00:00 159 mm[Hg] [facility] Body Weight 2020-12-10 00:00:00 3142.4 [oz_av] [facility] Procedures Procedure Date / Time Performed Performing Clinicia n Source Cholecystectomy 2022-04-01 00:00:00 [facility] US, thyroid 2021-04-01 00:00:[address] [facility] [place], [place] Partial Hysterectomy [facility] Plan of Care Planned Activity Planned Date Details Comments Source Diagnostic Test Pending 2023-09-21 00:00:00 rapid strep group A, throat [code = rapid strep group A, throat] [facility] Diagnostic Test Pending 2023-09-21 00:00:00 rapid flu (A+B) [code = rapid flu (A+B)] [facility] Future Appointment 2023-11-18 00:00:00 Polina Matt, [address] [place] [address], [address]; , [place] [address] [facility] Instructions [facility] Encounters Start Date/Time End Date/Time Encounter Type Admission Type Attending Clinicians Care Facility Care Department Encounter ID Source 2023-10-11 00:00:00 2023-10-11 00:00:00 Outpatient L_Pena [facility] [id number] [facility] 2023-09-27 00:00:00 2023-09-27 00:00:00 Shannan Hernandez APRN-DIRECTOR OF HOSPITALITY-B C: [address], [address], [place] [address] , Ph. [facility] [id number] [facility] 2023-09-21 00:00:00 2023-09-21 00:00:00 Polina Matt APRN, MSN, [facility]-BC: [address] [place] [address], Suite [facility], [place] [address] , Ph. [facility] [id number] [facility] 2023-08-28 00:00:00 2023-08-28 00:00:00 Outpatient L_Pena [facility] [id number] [facility] 2023-08-28 00:00:00 2023-08-28 00:00:00 Outpatient L_Pena [facility] [id number] [facility] 2023-08-18 00:00:00 2023-08-18 00:00:00 Polina Matt APRN, MSN, [facility]-BC: [address] [place] [address], [address] [place] [address] , Ph. [facility] [id number] [facility] 2023-08-14 00:00:00 2023-08-14 00:00:00 Outpatient L_Pena [facility] [id number] [facility] 2023-06-04 00:00:00 2023-06-04 00:00:00 Outpatient L_Pena [facility] [id number] [facility] 2023-05-18 00:00:00 2023-05-18 00:00:00 Polina Matt APRN, MSN, [facility]-: [address] [facility], [address] [place] [address] , Ph. [facility] [id number] [facility] 2023-04-22 00:00:00 2023-04-22 00:00:00 Outpatient L_Pena [facility] [id number] [facility] 2023-04-22 00:00:00 2023-04-22 00:00:00 Outpatient L_Pena [facility] [id number] [facility] 2023-04-13 09:40:00 2023-04-13 09:40:00 Outpatient ISABEL LEIGHANN YADIEL [facility] [id number] [facility] 2023-03-18 00:00:00 2023-03-18 00:00:00 Outpatient L_Pena [facility] [id number] [facility] 2023-02-13 00:00:00 2023-02-13 00:00:00 Outpatient L_Pena [facility] [id number] [facility] 2023-01-31 00:00:00 2023-01-31 00:00:00 Polina Matt APRN, MSN, [facility]-: [address] [facility], [address] [place] [address] , Ph. [facility] [id number] [facility] 2022-12-15 00:00:00 2022-12-15 00:00:00 Shannan Hernandez APRN-DIRECTOR OF HOSPITALITY-B C: [address], [address], [place] [address] , Ph. [facility] [id number] [facility] 2022-12-08 00:00:00 2022-12-08 00:00:00 Outpatient L_Pena [facility] [id number] [facility] 2022-12-08 00:00:00 2022-12-08 00:00:00 Outpatient L_Pena [facility] [id number] [facility] 2022-11-17 00:00:00 2022-11-17 00:00:00 Polina Matt APRN, MSN, [facility]-BC: [address] [place] [address], [address] [place] [address] , Ph. [facility] [id number] [facility] 2022-11-02 00:00:00 2022-11-02 00:00:00 Outpatient L_Pena [facility] [id number] [facility] 2022-11-02 00:00:00 2022-11-02 00:00:00 Outpatient L_Pena [facility] [id number] [facility] 2022-11-02 00:00:00 2022-11-02 00:00:00 Polina Matt APRN, MSN, [facility]-BC: [address] [place] [address], [address] [place] [address] , Ph. [facility] [id number] [facility] 2022-09-08 00:00:00 2022-09-08 00:00:00 Outpatient L_Pena [facility] [id number] [facility] 2022-09-08 00:00:00 2022-09-08 00:00:00 Polina Matt APRN, MSN, DIRECTOR OF HOSPITALITY-BC: [address] [place] [address], [address] [place] [address] , Ph. [facility] [id number] [facility] 2022-07-26 00:00:00 2022-07-26 00:00:00 Outpatient L_Pena [facility] [id number] [facility] 2022-07-26 00:00:00 2022-07-26 00:00:00 Polina Matt APRN, MSN, DIRECTOR OF HOSPITALITY-: [address] [facility], [address] [place] [address] , Ph. [facility] [id number] [facility] 2021-10-28 12:01:00 2021-10-28 12:01:00 Outpatient WATERS_S [facility] [id number] [facility] 2021-10-28 00:00:00 2021-10-28 00:00:00 Carlotta Ruiz APRN-PATIENT SAFETY OFFICER-C: [address] [facility], [address] [place] [address] , Ph. [facility] [id number] [facility] 2021-10-28 00:00:00 2021-10-28 00:00:00 Outpatient Carlotta Ruiz [facility] [id number] 04:19:00 2021-10-07 04:19:00 Outpatient WATERS_S [facility] [id number] [facility] 2021-10-07 00:00:00 2021-10-07 00:00:00 Carlotta Ruiz APRN-PATIENT SAFETY OFFICER-C: [address] [facility], [address] [place] [address] , Ph. [facility] [id number] [facility] 2021-10-07 00:00:00 2021-10-07 00:00:00 Outpatient Carlotta Ruiz [facility] [id number] 2021-09-30 10:01:00 2021-09-30 10:01:00 Outpatient WATERS_S [facility] [id number] [facility] 2021-08-05 11:51:00 2021-08-05 11:51:00 Outpatient SCHAUBROECK _L [facility] [id number] [facility] 2021-08-05 00:00:00 2021-08-05 00:00:00 Outpatient AldenMeryl tucker [facility] [id number] 2021-08-05 00:00:00 2021-08-05 00:00:00 Meryl barclay AGNP-C: [address] [place] [address], [address] [place] [address] , Ph. [facility] [id number] [facility] 2021-07-03 12:44:00 2021-07-03 12:44:00 Outpatient SCHAUBROECK _L [facility] [id number] 2021-07-03 00:00:00 2021-07-03 00:00:00 Outpatient AldenMeryl tucker [facility] [id number] 2021-07-03 00:00:00 2021-07-03 00:00:00 VAHE CooneyP-C: [address], [address], [place] [address] , Ph. [facility] [id number] [facility] 2021-06-22 06:00:00 2021-06-22 06:00:00 Outpatient SCHAUBROECK _L [facility] [id number] [facility] 2021-06-22 00:00:00 2021-06-22 00:00:00 Outpatient NathanielMeryl chase [facility] [id number] 2021-06-22 00:00:00 2021-06-22 00:00:00 LISA Conoey-C: [address] [place] [address], [address] [place] [address] , Ph. [facility] [id number] [facility] 2021-04-22 05:46:00 2021-04-22 05:46:00 Outpatient SCHAUBROECK _L [facility] [id number] [facility] 2021-04-22 00:00:00 2021-04-22 00:00:00 Outpatient AldenMeryl tucker [facility] [id number] 2021-04-22 00:00:00 2021-04-22 00:00:00 LISA Cooney-C: [address] [place] [address], [address] [place] [address] , Ph. [facility] [id number] [facility] 2021-04-15 12:15:00 2021-04-15 12:15:00 Outpatient SCHAUBROECK _L [facility] [id number] [facility] 2021-04-15 00:00:00 2021-04-15 00:00:00 Outpatient Carlotta Ruiz [facility] [id number] 2021-04-15 00:00:00 2021-04-15 00:00:00 Carlotta Ruiz HENRY-C: [address] [place] [address], [address] [place] [address] , Ph. [facility] [id number] [facility] 2021-04-01 11:11:00 2021-04-01 11:11:00 Outpatient SCHAUBROECK _L [facility] [id number] [facility] 2021-04-01 00:00:00 2021-04-01 00:00:00 Meryl barclay [facility]-C: [address] [place] [address], [address] [address] , Ph. [facility] [id number] [facility] 2021-04-01 00:00:00 2021-04-01 00:00:00 Outpatient Walter Meryl Hope [facility] [id number] 2021-04-01 00:00:00 2021-04-01 00:00:00 Outpatient Luz Maria Watsona Marie [facility] [id number] 2021-03-25 11:00:00 2021-03-25 11:00:00 Outpatient SCHAUBROECK _L [facility] [id number] [facility] 2021-03-25 00:00:00 2021-03-25 00:00:00 Outpatient Walter Meryl Hope [facility] [id number] 2021-03-25 00:00:00 2021-03-25 00:00:00 LISA Cooney-C: [address] [facility] [address], [address] [place] [address] , Ph. [facility] [id number] [facility] 2020-12-16 11:04:00 2020-12-16 11:04:00 Outpatient SCHAUBROECK _L [facility] [id number] [facility] 2020-12-15 10:19:00 2020-12-15 10:19:00 Outpatient SCHAUBROECK _L [facility] [id number] [facility] 2020-12-10 04:21:00 2020-12-10 04:21:00 Outpatient SCHAUBROECK _L [facility] [id number] [facility] 2020-12-10 00:00:00 2020-12-10 00:00:00 Outpatient Meryl Watson [facility] [id number] 2020-12-10 00:00:00 2020-12-10 00:00:00 LISA Cooney-C: [address] [facility], [address] [place] [address] , Ph. [facility] [id number] [facility] Results Test Description Test Time Test Comments Results Result Co mments Source [facility]2023-09-21 11:02:30* Test Item Value Reference Range Interpretation Comme nts FLU A (test code = FLU A) negative FLU B (test code = FLU B) negative [facility], [id number] 11:02:22 * Test Item Value Reference Range Interpretation Comme nts Strep (test code = Strep) negative [facility], [id number] 11:02:22 * Test Item Value Reference Range Interpretation Comme nts Strep (test code = Strep) negative [facility] strep group A, [id number] 09:18:00 * Test Item Value Reference Range Interpretation Comme nts Strep (test code = Strep) positive [facility] strep group A, [id number] 09:18:00 * Test Item Value Reference Range Interpretation Comme nts Strep (test code = Strep) positive [facility] strep group A, [id number] 11:21:00 * Test Item Value Reference Range Interpretation Comme nts Strep (test code = Strep) negative [facility] flu (A+B)2022-11-17 11:21:00* Test Item Value Reference Range Interpretation Comme nts FLU A (test code = FLU A) negative FLU B (test code = FLU B) negative [facility] ([facility]OVID-19[facility] Ag [Presence] in Respiratory specimen by Rapid [id number] 11:21:00* Test Item Value Reference Range Interpretation Comme nts SARS CoV 2 (test code = SARS CoV 2) negative [facility] macro (dipstick) panel - Urine 2021-10-28 10:30:00* Test Item Value Reference Range Interpretation Comme nts Leukocytes (test code = Leukocytes) Trace Nitrite (test code = Nitrite) negative Urobilinogen (test code = Urobilinogen) .2 Protein (test code = Protein) Negative pH (test code = pH) 5.0 Blood (test code = Blood) Hemolyzed: Trace Specific Manly (test code = Specific Manly) 1.025 Ketone (test code = Ketone) Trace Bilirubin (test code = Bilirubin) Negative Glucose (test code = Glucose) Negative Appearance (test code = Appearance) Cloudy Color (test code = Color) Dark Yellow [facility] W Auto Differential panel - [id number] 00:00:00* Test Item Value Reference Range Interpretation Comme nts Leukocytes [#/volume] in Blo od by Automated count (test code = 6690-2) 7.8 x10e3/uL 3.4-10.8 Erythrocytes [#/volume] in Blood by Automated count (test code = 789-8) 4.37 x10e6/uL 3.77-5.28 Hemoglobin [Mass/volume] in Blood (test code = 718-7) 10.4 g/dL 11.1-15.9 L Hematocrit [Volume Fraction] of Blood by Automated count (test code = 4544-3) 31.6 % 34.0-46.6 L Erythrocyte mean corpuscular volume [Entitic volume] by Automated count (test code = 787-2) 72 fL 79-97 L Erythrocyte mean corpuscular hemoglobin [Entitic mass] by Automated count (test code = 785-6) 23.8 pg 26.6-33.0 L Erythrocyte mean corpuscular hemoglobin concentration [Mass/volume] by Automated count (test code = 786-4) 32.9 g/dL 31.5-35.7 Erythrocyte distribution wid th [Ratio] by Automated count (test code = 788-0) 14.6 % 11.7-15.4 Platelets [#/volume] in Bloo d by Automated count (test code = 777-3) 490 x10e3/uL 150-450 H Neutrophils/100 leukocytes i n Blood by Automated count (test code = 770-8) 54 % not estab. Lymphocytes/100 leukocytes i n Blood by Automated count (test code = 736-9) 34 % not estab. Monocytes/100 leukocytes in Blood by Automated count (test code = 5905-5) 10 % not estab. Eosinophils/100 leukocytes i n Blood by Automated count (test code = 713-8) 1 % not estab. Basophils/100 leukocytes in Blood by Automated count (test code = 706-2) 1 % not estab. immature cells (test code = immature cells) employee placement specialist Neutrophils [#/volume] in Bl ood by Automated count (test code = 751-8) 4.2 x10e3/uL 1.4-7.0 Lymphocytes [#/volume] in Bl ood by Automated count (test code = 731-0) 2.6 x10e3/uL 0.7-3.1 Monocytes [#/volume] in Bloo d by Automated count (test code = 742-7) 0.7 x10e3/uL 0.1-0.9 Eosinophils [#/volume] in Bl ood by Automated count (test code = 711-2) 0.1 x10e3/uL 0.0-0.4 Basophils [#/volume] in Bloo d by Automated count (test code = 704-7) 0.1 x10e3/uL 0.0-0.2 Immature granulocytes/100 leukocytes in Blood by Automated count (test code = 66263-5) 0 % not estab. Immature granulocytes [#/volume] in Blood by Automated count (test code = 27138-3) 0.0 x10e3/uL 0.0-0.1 Nucleated erythrocytes/100 leukocytes [Ratio] in Blood by Automated count (test code = 68351-5) employee placement specialist Morphology [Interpretation] in Blood Narrative (test code = 91718-5) employee placement specialist [facility] 2000 [facility] - Serum or [id number] 00:00:00* Test Item Value Reference Range Interpretation Comme nts Glucose [Mass/volume] in Serum or Plasma (test code = 2345-7) 189 mg/dL 65-99 H Urea nitrogen [Mass/volume] in Serum or Plasma (test code = 3094-0) 11 mg/dL 8-27 Creatinine [Mass/volume] in Serum or Plasma (test code = 2160-0) 0.61 mg/dL 0.57-1.00 Glomerular filtration rate/1.73 sq M.predicted among non-blacks [Volume Rate/Area] in Serum, Plasma or Blood by Creatinine-based formula (CKD-EPI) (test code = 31801-6) 94 mL/min/1.73 >59 Glomerular filtration rate/1.73 sq M.predicted among blacks [Volume Rate/Area] in Serum, Plasma or Blood by Creatinine-based formula (CKD-EPI) (test code = 53762-1) 108 mL/min/1.73 >59 Urea nitrogen/Creatinine [Mass Ratio] in Serum or Plasma (test code = 3097-3) 18 12-28 Sodium [Moles/volume] in Serum or Plasma (test code = 2951-2) 138 mmol/L 134-144 Potassium [Moles/volume] in Serum or Plasma (test code = 2823-3) 4.7 mmol/L 3.5-5.2 Chloride [Moles/volume] in Serum or Plasma (test code = 2074-0) 100 mmol/L 96-106 Carbon dioxide, total [Moles/volume] in Serum or Plasma (test code = 2027-) 25 mmol/L 20-29 Calcium [Mass/volume] in Serum or Plasma (test code = 86554-7) 9.5 mg/dL 8.7-10.3 Protein [Mass/volume] in Serum or Plasma (test code = 2885-2) 7.4 g/dL 6.0-8.5 Albumin [Mass/volume] in Serum or Plasma (test code = 1751-7) 3.9 g/dL 3.8-4.8 Globulin [Mass/volume] in Serum by calculation (test code = 63165-5) 3.5 g/dL 1.5-4.5 Albumin/Globulin [Mass Ratio ] in Serum or Plasma (test code = 1759-0) 1.1 1.2-2.2 L Bilirubin.total [Mass/volume ] in Serum or Plasma (test code = 1974-) 0.2 mg/dL 0.0-1.2 Alkaline phosphatase [Enzymatic activity/volume] in Serum or Plasma (test code = 6768-6) 77 IU/L 44-121 Aspartate aminotransferase [Enzymatic activity/volume] in Serum or Plasma (test code = 1920-8) 36 IU/L 0-40 Alanine aminotransferase [Enzymatic activity/volume] in Serum or Plasma (test code = 1742-6) 34 IU/L 0-[address] [facility] [Mass/volume] in Serum or [id number] 00:00:00* Test Item Value Reference Range Interpretation Comme nts Iron binding capacity [Mass/ volume] in Serum or Plasma (test code = 2500-7) 505 ug/dL 250-450 H Iron binding capacity.unsatu rated [Mass/volume] in Serum or Plasma (test code = 2501-5) 485 ug/dL 118-369 H Iron [Mass/volume] in Serum or Plasma (test code = 2498-4) 20 ug/dL 27-139 L Iron saturation [Mass Fracti on] in Serum or Plasma (test code = 2502-3) 4 % 15-[address] [facility] CenterFolate+Cyanocobalamin [Interpretation] in Serum or [id number] 00:00:00* Test Item Value Reference Range Interpretation Comme nts Cobalamin (Vitamin B12) [Mass/volume] in Serum or Plasma (test code = 2132-9) 831 pg/mL 232-1245 Folate [Mass/volume] in Seru m or Plasma (test code = 2284-8) 6.5 NG/mL >3.0 [facility] CenterHemoglobin A1c/Hemoglobin.total in Blood 2021-10-01 00:00:00* Test Item Value Reference Range Interpretation Comme nts Hemoglobin A1c/Hemoglobin.to bra[place] in Blood (test code = 4548-4) 7.4 % 4.8-5.[address] [facility] CenterThyroxine (T4) free [Mass/volume] in Serum or [id number] 00:00:00* Test Item Value Reference Range Interpretation Comme nts Thyroxine (T4) free [Mass/vo lume] in Serum or Plasma (test code = 3024-7) 1.45 NG/dL 0.82-1.77 [facility] CenterThyrotropin [Units/volume] in Serum or Plasma by Detection limit <= 0.005 mIU/[id number] 00:00:00* Test Item Value Reference Range Interpretation Comme nts Thyrotropin [Units/volume] i n Serum or Plasma by Detection limit <= 0.005 mIU/L (test code = 77063-5) 0.558 uIU/mL 0.450-4.500 [facility] W Auto Differential panel - [id number] 00:00:00* Test Item Value Reference Range Interpretation Comme nts Leukocytes [#/volume] in Blo od by Automated count (test code = 6690-2) 7.8 x10e3/uL 3.4-10.8 Erythrocytes [#/volume] in Blood by Automated count (test code = 789-8) 4.37 x10e6/uL 3.77-5.28 Hemoglobin [Mass/volume] in Blood (test code = 718-7) 10.4 g/dL 11.1-15.9 L Hematocrit [Volume Fraction] of Blood by Automated count (test code = 4544-3) 31.6 % 34.0-46.6 L Erythrocyte mean corpuscular volume [Entitic volume] by Automated count (test code = 787-2) 72 fL 79-97 L Erythrocyte mean corpuscular hemoglobin [Entitic mass] by Automated count (test code = 785-6) 23.8 pg 26.6-33.0 L Erythrocyte mean corpuscular hemoglobin concentration [Mass/volume] by Automated count (test code = 786-4) 32.9 g/dL 31.5-35.7 Erythrocyte distribution wid th [Ratio] by Automated count (test code = 788-0) 14.6 % 11.7-15.4 Platelets [#/volume] in Bloo d by Automated count (test code = 777-3) 490 x10e3/uL 150-450 H Neutrophils/100 leukocytes i n Blood by Automated count (test code = 770-8) 54 % not estab. Lymphocytes/100 leukocytes i n Blood by Automated count (test code = 736-9) 34 % not estab. Monocytes/100 leukocytes in Blood by Automated count (test code = 5905-5) 10 % not estab. Eosinophils/100 leukocytes i n Blood by Automated count (test code = 713-8) 1 % not estab. Basophils/100 leukocytes in Blood by Automated count (test code = 706-2) 1 % not estab. immature cells (test code = immature cells) employee placement specialist Neutrophils [#/volume] in Bl ood by Automated count (test code = 751-8) 4.2 x10e3/uL 1.4-7.0 Lymphocytes [#/volume] in Bl ood by Automated count (test code = 731-0) 2.6 x10e3/uL 0.7-3.1 Monocytes [#/volume] in Bloo d by Automated count (test code = 742-7) 0.7 x10e3/uL 0.1-0.9 Eosinophils [#/volume] in Bl ood by Automated count (test code = 711-2) 0.1 x10e3/uL 0.0-0.4 Basophils [#/volume] in Bloo d by Automated count (test code = 704-7) 0.1 x10e3/uL 0.0-0.2 Immature granulocytes/100 leukocytes in Blood by Automated count (test code = 56536-1) 0 % not estab. Immature granulocytes [#/volume] in Blood by Automated count (test code = 16106-8) 0.0 x10e3/uL 0.0-0.1 Nucleated erythrocytes/100 leukocytes [Ratio] in Blood by Automated count (test code = 61029-9) employee placement specialist Morphology [Interpretation] in Blood Narrative (test code = 40954-2) employee placement specialist [facility] CenterComprehensive metabolic 2000 panel - Serum or [id number] 00:00:00* Test Item Value Reference Range Interpretation Comme nts Glucose [Mass/volume] in Serum or Plasma (test code = 2345-7) 189 mg/dL 65-99 H Urea nitrogen [Mass/volume] in Serum or Plasma (test code = 3094-0) 11 mg/dL 8-27 Creatinine [Mass/volume] in Serum or Plasma (test code = 2160-0) 0.61 mg/dL 0.57-1.00 Glomerular filtration rate/1.73 sq M.predicted among non-blacks [Volume Rate/Area] in Serum, Plasma or Blood by Creatinine-based formula (CKD-EPI) (test code = 87823-6) 94 mL/min/1.73 >59 Glomerular filtration rate/1.73 sq M.predicted among blacks [Volume Rate/Area] in Serum, Plasma or Blood by Creatinine-based formula (CKD-EPI) (test code = 94268-3) 108 mL/min/1.73 >59 Urea nitrogen/Creatinine [Mass Ratio] in Serum or Plasma (test code = 3097-3) 18 12-28 Sodium [Moles/volume] in Serum or Plasma (test code = 2951-2) 138 mmol/L 134-144 Potassium [Moles/volume] in Serum or Plasma (test code = 2823-3) 4.7 mmol/L 3.5-5.2 Chloride [Moles/volume] in Serum or Plasma (test code = 2075-0) 100 mmol/L 96-106 Carbon dioxide, total [Moles/volume] in Serum or Plasma (test code = 2027-9) 25 mmol/L 20-29 Calcium [Mass/volume] in Serum or Plasma (test code = 11211-9) 9.5 mg/dL 8.7-10.3 Protein [Mass/volume] in Serum or Plasma (test code = 2885-2) 7.4 g/dL 6.0-8.5 Albumin [Mass/volume] in Serum or Plasma (test code = 1751-7) 3.9 g/dL 3.8-4.8 Globulin [Mass/volume] in Serum by calculation (test code = 20249-5) 3.5 g/dL 1.5-4.5 Albumin/Globulin [Mass Ratio ] in Serum or Plasma (test code = 1759-0) 1.1 1.2-2.2 L Bilirubin.total [Mass/volume ] in Serum or Plasma (test code = 1975-2) 0.2 mg/dL 0.0-1.2 Alkaline phosphatase [Enzymatic activity/volume] in Serum or Plasma (test code = 6768-6) 77 IU/L 44-121 Aspartate aminotransferase [Enzymatic activity/volume] in Serum or Plasma (test code = 1920-8) 36 IU/L 0-40 Alanine aminotransferase [Enzymatic activity/volume] in Serum or Plasma (test code = 1742-6) 34 IU/L 0-[address] [facility] CenterIron binding capacity [Mass/volume] in Serum or [id number] 00:00:00* Test Item Value Reference Range Interpretation Comme nts Iron binding capacity [Mass/ volume] in Serum or Plasma (test code = 2500-7) 505 ug/dL 250-450 H Iron binding capacity.unsatu rated [Mass/volume] in Serum or Plasma (test code = 2501-5) 485 ug/dL 118-369 H Iron [Mass/volume] in Serum or Plasma (test code = 2498-4) 20 ug/dL 27-139 L Iron saturation [Mass Fracti on] in Serum or Plasma (test code = 2502-3) 4 % 15-[address] [facility] CenterFolate+Cyanocobalamin [Interpretation] in Serum or [id number] 00:00:00* Test Item Value Reference Range Interpretation Comme nts Cobalamin (Vitamin B12) [Mass/volume] in Serum or Plasma (test code = 2132-9) 831 pg/mL 232-1245 Folate [Mass/volume] in Seru m or Plasma (test code = 2284-8) 6.5 NG/mL >3.0 [facility] CenterHemoglobin A1c/Hemoglobin.total in Blood 2021-10-01 00:00:00* Test Item Value Reference Range Interpretation Comme nts Hemoglobin A1c/Hemoglobin.to bra[place] in Blood (test code = 4548-4) 7.4 % 4.8-5.[address] [facility] CenterThyroxine (T4) free [Mass/volume] in Serum or [id number] 00:00:00* Test Item Value Reference Range Interpretation Comme nts Thyroxine (T4) free [Mass/vo lume] in Serum or Plasma (test code = 3024-7) 1.45 NG/dL 0.82-1.77 [facility] CenterThyrotropin [Units/volume] in Serum or Plasma by Detection limit <= 0.005 mIU/[id number] 00:00:00* Test Item Value Reference Range Interpretation Comme nts Thyrotropin [Units/volume] i n Serum or Plasma by Detection limit <= 0.005 mIU/L (test code = 11051-0) 0.558 uIU/mL 0.450-4.500 [facility] CenterUrinalysis macro (dipstick) panel - Urine 2021-08-05 10:22:00* Test Item Value Reference Range Interpretation Comme nts Leukocytes (test code = Leukocytes) Trace Nitrite (test code = Nitrite) negative Urobilinogen (test code = Urobilinogen) .2 Protein (test code = Protein) 30 pH (test code = pH) 7.5 Blood (test code = Blood) Negative Specific Manly (test code = Specific Manly) 1.005 Ketone (test code = Ketone) Negative Bilirubin (test code = Bilirubin) Small Glucose (test code = Glucose) Negative Appearance (test code = Appearance) Clear Color (test code = Color) Yellow [facility] CenterSARS-CoV-2 (COVID-19) Ag [Presence] in Respiratory specimen by Rapid [id number] 16:36:00* Test Item Value Reference Range Interpretation Comme nts SARS CoV 2 (test code = SARS CoV 2) positive [facility] Centerrapid strep group A, [id number] 11:03:00 * Test Item Value Reference Range Interpretation Comme nts Strep (test code = Strep) negative [facility]2021-[facility]15 11:03:00* Test Item Value Reference Range Interpretation Comme nts FLU A (test code = FLU A) positive FLU B (test code = FLU B) negative [facility] CenterSARS-CoV-2 (COVID-19) Ag [Presence] in Respiratory specimen by Rapid [id number] 11:03:00* Test Item Value Reference Range Interpretation Comme nts SARS CoV 2 (test code = SARS CoV 2) negative [facility] A, [id number] 11:03:00 * Test Item Value Reference Range Interpretation Comme nts Strep (test code = Strep) negative [facility]rap[facility] (A+B)2021-04-15 11:03:00* Test Item Value Reference Range Interpretation Comme nts FLU A (test code = FLU A) positive FLU B (test code = FLU B) negative [facility]-CoV-[facility] (COVID-19) Ag [Presence] in Respiratory specimen by Rapid [id number] 11:03:00* Test Item Value Reference Range Interpretation Comme nts SARS CoV 2 (test code = SARS CoV 2) negative [facility] Centeriron + TIBC + ferritin, [id number] 00:00:00* Test Item Value Reference Range Interpretation Comme nts Iron binding capacity [Mass/ volume] in Serum or Plasma (test code = 2500-7) 549 ug/dL 250-450 H Iron binding capacity.unsatu rated [Mass/volume] in Serum or Plasma (test code = 2501-5) 531 ug/dL 118-369 H Iron [Mass/volume] in Serum or Plasma (test code = 2498-4) 18 ug/dL 27-139 L Iron saturation [Mass Fracti on] in Serum or Plasma (test code = 2502-3) 3 % 15-55 L Ferritin [Mass/volume] in Se rum or Plasma (test code = 2276-4) 8 NG/mL 15-150 L [facility] W Auto Differential panel - [id number] 00:00:00* Test Item Value Reference Range Interpretation Comme nts Leukocytes [#/volume] in Blo od by Automated count (test code = 6690-2) 9.9 x10e3/uL 3.4-10.8 Erythrocytes [#/volume] in Blood by Automated count (test code = 789-8) 4.02 x10e6/uL 3.77-5.28 Hemoglobin [Mass/volume] in Blood (test code = 718-7) 8.9 g/dL 11.1-15.9 L Hematocrit [Volume Fraction] of Blood by Automated count (test code = 4544-3) 27.1 % 34.0-46.6 L Erythrocyte mean corpuscular volume [Entitic volume] by Automated count (test code = 787-2) 67 fL 79-97 L Erythrocyte mean corpuscular hemoglobin [Entitic mass] by Automated count (test code = 785-6) 22.1 pg 26.6-33.0 L Erythrocyte mean corpuscular hemoglobin concentration [Mass/volume] by Automated count (test code = 786-4) 32.8 g/dL 31.5-35.7 Erythrocyte distribution wid th [Ratio] by Automated count (test code = 788-0) 15.4 % 11.7-15.4 Platelets [#/volume] in Bloo d by Automated count (test code = 777-3) 498 x10e3/uL 150-450 H Neutrophils/100 leukocytes i n Blood by Automated count (test code = 770-8) 53 % not estab. Lymphocytes/100 leukocytes i n Blood by Automated count (test code = 736-9) 34 % not estab. Monocytes/100 leukocytes in Blood by Automated count (test code = 5905-5) 11 % not estab. Eosinophils/100 leukocytes i n Blood by Automated count (test code = 713-8) 1 % not estab. Basophils/100 leukocytes in Blood by Automated count (test code = 706-2) 1 % not estab. immature cells (test code = immature cells) employee placement specialist Neutrophils [#/volume] in Bl ood by Automated count (test code = 751-8) 5.2 x10e3/uL 1.4-7.0 Lymphocytes [#/volume] in Bl ood by Automated count (test code = 731-0) 3.3 x10e3/uL 0.7-3.1 H Monocytes [#/volume] in Bloo d by Automated count (test code = 742-7) 1.1 x10e3/uL 0.1-0.9 H Eosinophils [#/volume] in Bl ood by Automated count (test code = 711-2) 0.1 x10e3/uL 0.0-0.4 Basophils [#/volume] in Bloo d by Automated count (test code = 704-7) 0.1 x10e3/uL 0.0-0.2 Immature granulocytes/100 leukocytes in Blood by Automated count (test code = 23908-6) 0 % not estab. Immature granulocytes [#/volume] in Blood by Automated count (test code = 50594-4) 0.0 x10e3/uL 0.0-0.1 Nucleated erythrocytes/100 leukocytes [Ratio] in Blood by Automated count (test code = 75744-0) employee placement specialist Morphology [Interpretation] in Blood Narrative (test code = 26987-0) employee placement specialist [facility]icsFolate+Cyanocobalamin [Interpretation] in Serum or [id number] 00:00:00* Test Item Value Reference Range Interpretation Comme nts Cobalamin (Vitamin B12) [Mass/volume] in Serum or Plasma (test code = 2132-9) 1338 pg/mL 232-1245 H Folate [Mass/volume] in Seru m or Plasma (test code = 2284-8) 9.3 NG/mL >3.0 [facility] CenterThyroglobulin Ab [Units/volume] in Serum or [id number] 00:00:00* Test Item Value Reference Range Interpretation Comme nts Thyroglobulin Ab [Units/volu me] in Serum (test code = 8098-6) <1.0 0.0-0.9 [facility] CenterThyroperoxidase Ab [Units/volume] in Serum or [id number] 00:00:00* Test Item Value Reference Range Interpretation Comme nts Thyroperoxidase Ab [Units/vo lume] in Serum (test code = 8099-4) 9 IU/mL 0-34 [facility] W Auto Differential panel - [id number] 00:00:00* Test Item Value Reference Range Interpretation Comme nts Leukocytes [#/volume] in Blo od by Automated count (test code = 6690-2) 8.3 x10e3/uL 3.4-10.8 Erythrocytes [#/volume] in Blood by Automated count (test code = 789-8) 4.19 x10e6/uL 3.77-5.28 Hemoglobin [Mass/volume] in Blood (test code = 718-7) 9.5 g/dL 11.1-15.9 L Hematocrit [Volume Fraction] of Blood by Automated count (test code = 4544-3) 30.4 % 34.0-46.6 L Erythrocyte mean corpuscular volume [Entitic volume] by Automated count (test code = 787-2) 73 fL 79-97 L Erythrocyte mean corpuscular hemoglobin [Entitic mass] by Automated count (test code = 785-6) 22.7 pg 26.6-33.0 L Erythrocyte mean corpuscular hemoglobin concentration [Mass/volume] by Automated count (test code = 786-4) 31.3 g/dL 31.5-35.7 L Erythrocyte distribution wid th [Ratio] by Automated count (test code = 788-0) 15.1 % 11.7-15.4 Platelets [#/volume] in Bloo d by Automated count (test code = 777-3) 490 x10e3/uL 150-450 H Neutrophils/100 leukocytes i n Blood by Automated count (test code = 770-8) 53 % not estab. Lymphocytes/100 leukocytes i n Blood by Automated count (test code = 736-9) 36 % not estab. Monocytes/100 leukocytes in Blood by Automated count (test code = 5905-5) 8 % not estab. Eosinophils/100 leukocytes i n Blood by Automated count (test code = 713-8) 2 % not estab. Basophils/100 leukocytes in Blood by Automated count (test code = 706-2) 1 % not estab. immature cells (test code = immature cells) employee placement specialist Neutrophils [#/volume] in Bl ood by Automated count (test code = 751-8) 4.4 x10e3/uL 1.4-7.0 Lymphocytes [#/volume] in Bl ood by Automated count (test code = 731-0) 3.0 x10e3/uL 0.7-3.1 Monocytes [#/volume] in Bloo d by Automated count (test code = 742-7) 0.7 x10e3/uL 0.1-0.9 Eosinophils [#/volume] in Bl ood by Automated count (test code = 711-2) 0.2 x10e3/uL 0.0-0.4 Basophils [#/volume] in Bloo d by Automated count (test code = 704-7) 0.1 x10e3/uL 0.0-0.2 Immature granulocytes/100 leukocytes in Blood by Automated count (test code = 72057-3) 0 % not estab. Immature granulocytes [#/volume] in Blood by Automated count (test code = 16434-8) 0.0 x10e3/uL 0.0-0.1 Nucleated erythrocytes/100 leukocytes [Ratio] in Blood by Automated count (test code = 81761-4) employee placement specialist Morphology [Interpretation] in Blood Narrative (test code = 40905-6) employee placement specialist [facility]Com[facility] 2000 panel - Serum or [id number] 00:00:00* Test Item Value Reference Range Interpretation Comme nts Glucose [Mass/volume] in Serum or Plasma (test code = 2345-7) 146 mg/dL 65-99 H Urea nitrogen [Mass/volume] in Serum or Plasma (test code = 3094-0) 12 mg/dL 8-27 Creatinine [Mass/volume] in Serum or Plasma (test code = 2160-0) 0.67 mg/dL 0.57-1.00 Glomerular filtration rate/1.73 sq M.predicted among non-blacks [Volume Rate/Area] in Serum, Plasma or Blood by Creatinine-based formula (CKD-EPI) (test code = 57229-0) 92 mL/min/1.73 >59 Glomerular filtration rate/1.73 sq M.predicted among blacks [Volume Rate/Area] in Serum, Plasma or Blood by Creatinine-based formula (CKD-EPI) (test code = 43321-1) 106 mL/min/1.73 >59 Urea nitrogen/Creatinine [Mass Ratio] in Serum or Plasma (test code = 3097-3) 18 12-28 Sodium [Moles/volume] in Serum or Plasma (test code = 295-2) 139 mmol/L 134-144 Potassium [Moles/volume] in Serum or Plasma (test code = 2823-3) 4.3 mmol/L 3.5-5.2 Chloride [Moles/volume] in Serum or Plasma (test code = 2074-0) 101 mmol/L 96-106 Carbon dioxide, total [Moles/volume] in Serum or Plasma (test code = 2027-) 23 mmol/L 20-29 Calcium [Mass/volume] in Serum or Plasma (test code = 05247-9) 9.5 mg/dL 8.7-10.3 Protein [Mass/volume] in Serum or Plasma (test code = 2885-2) 7.7 g/dL 6.0-8.5 Albumin [Mass/volume] in Serum or Plasma (test code = 175-7) 4.1 g/dL 3.8-4.8 Globulin [Mass/volume] in Serum by calculation (test code = 88544-6) 3.6 g/dL 1.5-4.5 Albumin/Globulin [Mass Ratio ] in Serum or Plasma (test code = 1759-0) 1.1 1.2-2.2 L Bilirubin.total [Mass/volume ] in Serum or Plasma (test code = 1974-) <0.2 0.0-1.2 Alkaline phosphatase [Enzymatic activity/volume] in Serum or Plasma (test code = 6768-6) 70 IU/L 48-121 Aspartate aminotransferase [Enzymatic activity/volume] in Serum or Plasma (test code = 1920-8) 36 IU/L 0-40 Alanine aminotransferase [Enzymatic activity/volume] in Serum or Plasma (test code = 1742-6) 32 IU/L 0-32 [facility]icsLip[facility] 1996 panel - Serum or [id number] 00:00:00* Test Item Value Reference Range Interpretation Comme nts Cholesterol [Mass/volume] in Serum or Plasma (test code = 2092-3) 168 mg/dL 100-199 Triglyceride [Mass/volume] i n Serum or Plasma (test code = 2571-8) 77 mg/dL 0-149 Cholesterol in HDL [Mass/vol ume] in Serum or Plasma (test code = 2084-9) 60 mg/dL >39 Cholesterol in VLDL [Mass/vo lume] in Serum or Plasma by calculation (test code = 27732-3) 15 mg/dL 5-40 Cholesterol in LDL [Mass/vol ume] in Serum or Plasma by calculation (test code = 84520-3) 93 mg/dL 0-99 Laboratory comment [Text] in Report Narrative (test code = 74157-1) employee placement specialist Cholesterol in LDL/Cholester ol in HDL [Mass Ratio] in Serum or Plasma (test code = 01373-5) 1.6 ratio 0.0-3.2 [facility] CenterAlbum[facility]/Creatinine [Mass Ratio] in Urine 2021-03-26 00:00:00* Test Item Value Reference Range Interpretation Comme nts Creatinine [Mass/volume] in Urine (test code = 2161-8) 251.3 mg/dL not estab. Microalbumin [Mass/volume] i n Urine (test code = 60629-3) 19.5 ug/mL not estab. Albumin/Creatinine [Mass rat io] in Urine (test code = 9318-7) 8 mg/g creat 0-29 [facility] CenterThyroxine (T4) free [Mass/volume] in Serum or [id number] 00:00:00* Test Item Value Reference Range Interpretation Comme nts Thyroxine (T4) free [Mass/vo lume] in Serum or Plasma (test code = 3024-7) 1.61 NG/dL 0.82-1.77 [facility] CenterThyrotropin [Units/volume] in Serum or Plasma by Detection limit <= 0.005 mIU/[id number] 00:00:00* Test Item Value Reference Range Interpretation Comme nts Thyrotropin [Units/volume] i n Serum or Plasma by Detection limit <= 0.005 mIU/L (test code = 49351-4) 0.434 uIU/mL 0.450-4.[address] [facility]25-Hydroxyvitamin D3+25-Hydroxyvitamin D2 [Mass/volume] in Serum or [id number] 00:00:00* Test Item Value Reference Range Interpretation Comme nts 25-Hydroxyvitamin D3+25-Hydroxyvitamin D2 [Mass/volume] in Serum or Plasma (test code = 60227-1) 34.8 NG/mL 30.0-100.0 [facility] W Auto Differential panel - [id number] 00:00:00* Test Item Value Reference Range Interpretation Comme nts Leukocytes [#/volume] in Blo od by Automated count (test code = 6690-2) 8.3 x10e3/uL 3.4-10.8 Erythrocytes [#/volume] in Blood by Automated count (test code = 789-8) 4.19 x10e6/uL 3.77-5.28 Hemoglobin [Mass/volume] in Blood (test code = 718-7) 9.5 g/dL 11.1-15.9 L Hematocrit [Volume Fraction] of Blood by Automated count (test code = 4544-3) 30.4 % 34.0-46.6 L Erythrocyte mean corpuscular volume [Entitic volume] by Automated count (test code = 787-2) 73 fL 79-97 L Erythrocyte mean corpuscular hemoglobin [Entitic mass] by Automated count (test code = 785-6) 22.7 pg 26.6-33.0 L Erythrocyte mean corpuscular hemoglobin concentration [Mass/volume] by Automated count (test code = 786-4) 31.3 g/dL 31.5-35.7 L Erythrocyte distribution wid th [Ratio] by Automated count (test code = 788-0) 15.1 % 11.7-15.4 Platelets [#/volume] in Bloo d by Automated count (test code = 777-3) 490 x10e3/uL 150-450 H Neutrophils/100 leukocytes i n Blood by Automated count (test code = 770-8) 53 % not estab. Lymphocytes/100 leukocytes i n Blood by Automated count (test code = 736-9) 36 % not estab. Monocytes/100 leukocytes in Blood by Automated count (test code = 5905-5) 8 % not estab. Eosinophils/100 leukocytes i n Blood by Automated count (test code = 713-8) 2 % not estab. Basophils/100 leukocytes in Blood by Automated count (test code = 706-2) 1 % not estab. immature cells (test code = immature cells) employee placement specialist Neutrophils [#/volume] in Bl ood by Automated count (test code = 751-8) 4.4 x10e3/uL 1.4-7.0 Lymphocytes [#/volume] in Bl ood by Automated count (test code = 731-0) 3.0 x10e3/uL 0.7-3.1 Monocytes [#/volume] in Bloo d by Automated count (test code = 742-7) 0.7 x10e3/uL 0.1-0.9 Eosinophils [#/volume] in Bl ood by Automated count (test code = 711-2) 0.2 x10e3/uL 0.0-0.4 Basophils [#/volume] in Bloo d by Automated count (test code = 704-7) 0.1 x10e3/uL 0.0-0.2 Immature granulocytes/100 leukocytes in Blood by Automated count (test code = 23182-8) 0 % not estab. Immature granulocytes [#/volume] in Blood by Automated count (test code = 58020-1) 0.0 x10e3/uL 0.0-0.1 Nucleated erythrocytes/100 leukocytes [Ratio] in Blood by Automated count (test code = 07803-7) employee placement specialist Morphology [Interpretation] in Blood Narrative (test code = 42759-0) employee placement specialist [facility] CenterCom[facility] 2000 panel - Serum or [id number] 00:00:00* Test Item Value Reference Range Interpretation Comme nts Glucose [Mass/volume] in Serum or Plasma (test code = 2345-7) 146 mg/dL 65-99 H Urea nitrogen [Mass/volume] in Serum or Plasma (test code = 3094-0) 12 mg/dL 8-27 Creatinine [Mass/volume] in Serum or Plasma (test code = 2160-0) 0.67 mg/dL 0.57-1.00 Glomerular filtration rate/1.73 sq M.predicted among non-blacks [Volume Rate/Area] in Serum, Plasma or Blood by Creatinine-based formula (CKD-EPI) (test code = 70290-2) 92 mL/min/1.73 >59 Glomerular filtration rate/1.73 sq M.predicted among blacks [Volume Rate/Area] in Serum, Plasma or Blood by Creatinine-based formula (CKD-EPI) (test code = 84473-5) 106 mL/min/1.73 >59 Urea nitrogen/Creatinine [Mass Ratio] in Serum or Plasma (test code = 3097-3) 18 12-28 Sodium [Moles/volume] in Serum or Plasma (test code = 2951-2) 139 mmol/L 134-144 Potassium [Moles/volume] in Serum or Plasma (test code = 2823-3) 4.3 mmol/L 3.5-5.2 Chloride [Moles/volume] in Serum or Plasma (test code = 2074-0) 101 mmol/L 96-106 Carbon dioxide, total [Moles/volume] in Serum or Plasma (test code = 2027-) 23 mmol/L 20-29 Calcium [Mass/volume] in Serum or Plasma (test code = 80321-5) 9.5 mg/dL 8.7-10.3 Protein [Mass/volume] in Serum or Plasma (test code = 2885-2) 7.7 g/dL 6.0-8.5 Albumin [Mass/volume] in Serum or Plasma (test code = 175-7) 4.1 g/dL 3.8-4.8 Globulin [Mass/volume] in Serum by calculation (test code = 08491-0) 3.6 g/dL 1.5-4.5 Albumin/Globulin [Mass Ratio ] in Serum or Plasma (test code = 175-0) 1.1 1.2-2.2 L Bilirubin.total [Mass/volume ] in Serum or Plasma (test code = 1974-) <0.2 0.0-1.2 Alkaline phosphatase [Enzymatic activity/volume] in Serum or Plasma (test code = 6768-6) 70 IU/L 48-121 Aspartate aminotransferase [Enzymatic activity/volume] in Serum or Plasma (test code = 192-8) 36 IU/L 0-40 Alanine aminotransferase [Enzymatic activity/volume] in Serum or Plasma (test code = 1742-6) 32 IU/L 0-32 [facility] - Serum or [id number] 00:00:00* Test Item Value Reference Range Interpretation Comme nts Cholesterol [Mass/volume] in Serum or Plasma (test code = 2092-3) 168 mg/dL 100-199 Triglyceride [Mass/volume] i n Serum or Plasma (test code = 2571-8) 77 mg/dL 0-149 Cholesterol in HDL [Mass/vol ume] in Serum or Plasma (test code = 2084-9) 60 mg/dL >39 Cholesterol in VLDL [Mass/vo lume] in Serum or Plasma by calculation (test code = 13536-0) 15 mg/dL 5-40 Cholesterol in LDL [Mass/vol ume] in Serum or Plasma by calculation (test code = 08937-3) 93 mg/dL 0-99 Laboratory comment [Text] in Report Narrative (test code = 62888-0) employee placement specialist Cholesterol in LDL/Cholester ol in HDL [Mass Ratio] in Serum or Plasma (test code = 95589-0) 1.6 ratio 0.0-3.2 [facility] Ratio] in Urine 2021-03-26 00:00:00* Test Item Value Reference Range Interpretation Comme nts Creatinine [Mass/volume] in Urine (test code = 2161-8) 251.3 mg/dL not estab. Microalbumin [Mass/volume] i n Urine (test code = 62689-1) 19.5 ug/mL not estab. Albumin/Creatinine [Mass rat io] in Urine (test code = 9318-7) 8 mg/g creat 0-29 [facility] (T4[facility] free [Mass/volume] in Serum or [id number] 00:00:00* Test Item Value Reference Range Interpretation Comme nts Thyroxine (T4) free [Mass/vo lume] in Serum or Plasma (test code = 3024-7) 1.61 NG/dL 0.82-1.77 [facility]Thy[facility] [Units/volume] in Serum or Plasma by Detection limit <= 0.005 mIU/[id number] 00:00:00* Test Item Value Reference Range Interpretation Comme nts Thyrotropin [Units/volume] i n Serum or Plasma by Detection limit <= 0.005 mIU/L (test code = 28548-5) 0.434 uIU/mL 0.450-4.500 L [facility] Bqiahin27-Dtllnceddxotla D3+25-Hydroxyvitamin D2 [Mass/volume] in Serum or [id number] 00:00:00* Test Item Value Reference Range Interpretation Comme nts 25-Hydroxyvitamin D3+25-Hydroxyvitamin D2 [Mass/volume] in Serum or Plasma (test code = 97754-6) 34.8 NG/mL 30.0-100.0 [facility] W Auto Differential panel - [id number] 00:00:00* Test Item Value Reference Range Interpretation Comme nts Leukocytes [#/volume] in Blo od by Automated count (test code = 6690-2) 8.3 x10e3/uL 3.4-10.8 Erythrocytes [#/volume] in Blood by Automated count (test code = 789-8) 4.19 x10e6/uL 3.77-5.28 Hemoglobin [Mass/volume] in Blood (test code = 718-7) 9.5 g/dL 11.1-15.9 L Hematocrit [Volume Fraction] of Blood by Automated count (test code = 4544-3) 30.4 % 34.0-46.6 L Erythrocyte mean corpuscular volume [Entitic volume] by Automated count (test code = 787-2) 73 fL 79-97 L Erythrocyte mean corpuscular hemoglobin [Entitic mass] by Automated count (test code = 785-6) 22.7 pg 26.6-33.0 L Erythrocyte mean corpuscular hemoglobin concentration [Mass/volume] by Automated count (test code = 786-4) 31.3 g/dL 31.5-35.7 L Erythrocyte distribution wid th [Ratio] by Automated count (test code = 788-0) 15.1 % 11.7-15.4 Platelets [#/volume] in Bloo d by Automated count (test code = 777-3) 490 x10e3/uL 150-450 H Neutrophils/100 leukocytes i n Blood by Automated count (test code = 770-8) 53 % not estab. Lymphocytes/100 leukocytes i n Blood by Automated count (test code = 736-9) 36 % not estab. Monocytes/100 leukocytes in Blood by Automated count (test code = 5905-5) 8 % not estab. Eosinophils/100 leukocytes i n Blood by Automated count (test code = 713-8) 2 % not estab. Basophils/100 leukocytes in Blood by Automated count (test code = 706-2) 1 % not estab. immature cells (test code = immature cells) employee placement specialist Neutrophils [#/volume] in Bl ood by Automated count (test code = 751-8) 4.4 x10e3/uL 1.4-7.0 Lymphocytes [#/volume] in Bl ood by Automated count (test code = 731-0) 3.0 x10e3/uL 0.7-3.1 Monocytes [#/volume] in Bloo d by Automated count (test code = 742-7) 0.7 x10e3/uL 0.1-0.9 Eosinophils [#/volume] in Bl ood by Automated count (test code = 711-2) 0.2 x10e3/uL 0.0-0.4 Basophils [#/volume] in Bloo d by Automated count (test code = 704-7) 0.1 x10e3/uL 0.0-0.2 Immature granulocytes/100 leukocytes in Blood by Automated count (test code = 73185-4) 0 % not estab. Immature granulocytes [#/volume] in Blood by Automated count (test code = 02147-5) 0.0 x10e3/uL 0.0-0.1 Nucleated erythrocytes/100 leukocytes [Ratio] in Blood by Automated count (test code = 70558-2) employee placement specialist Morphology [Interpretation] in Blood Narrative (test code = 68293-8) employee placement specialist [facility]Com[facility] 2000 [facility] - Serum or [id number] 00:00:00* Test Item Value Reference Range Interpretation Comme nts Glucose [Mass/volume] in Serum or Plasma (test code = 2345-7) 146 mg/dL 65-99 H Urea nitrogen [Mass/volume] in Serum or Plasma (test code = 3094-0) 12 mg/dL 8-27 Creatinine [Mass/volume] in Serum or Plasma (test code = 2160-0) 0.67 mg/dL 0.57-1.00 Glomerular filtration rate/1.73 sq M.predicted among non-blacks [Volume Rate/Area] in Serum, Plasma or Blood by Creatinine-based formula (CKD-EPI) (test code = 26425-3) 92 mL/min/1.73 >59 Glomerular filtration rate/1.73 sq M.predicted among blacks [Volume Rate/Area] in Serum, Plasma or Blood by Creatinine-based formula (CKD-EPI) (test code = 94777-9) 106 mL/min/1.73 >59 Urea nitrogen/Creatinine [Mass Ratio] in Serum or Plasma (test code = 3097-3) 18 12-28 Sodium [Moles/volume] in Serum or Plasma (test code = 2951-2) 139 mmol/L 134-144 Potassium [Moles/volume] in Serum or Plasma (test code = 2823-3) 4.3 mmol/L 3.5-5.2 Chloride [Moles/volume] in Serum or Plasma (test code = 5-0) 101 mmol/L 96-106 Carbon dioxide, total [Moles/volume] in Serum or Plasma (test code = 2027-9) 23 mmol/L 20-29 Calcium [Mass/volume] in Serum or Plasma (test code = 82035-8) 9.5 mg/dL 8.7-10.3 Protein [Mass/volume] in Serum or Plasma (test code = 2885-2) 7.7 g/dL 6.0-8.5 Albumin [Mass/volume] in Serum or Plasma (test code = 1751-7) 4.1 g/dL 3.8-4.8 Globulin [Mass/volume] in Serum by calculation (test code = 98255-0) 3.6 g/dL 1.5-4.5 Albumin/Globulin [Mass Ratio ] in Serum or Plasma (test code = 1759-0) 1.1 1.2-2.2 L Bilirubin.total [Mass/volume ] in Serum or Plasma (test code = 1974-2) <0.2 0.0-1.2 Alkaline phosphatase [Enzymatic activity/volume] in Serum or Plasma (test code = 6768-6) 70 IU/L 48-121 Aspartate aminotransferase [Enzymatic activity/volume] in Serum or Plasma (test code = 1920-8) 36 IU/L 0-40 Alanine aminotransferase [Enzymatic activity/volume] in Serum or Plasma (test code = 1742-6) 32 IU/L 0-32 [facility] - Serum or [id number] 00:00:00* Test Item Value Reference Range Interpretation Comme nts Cholesterol [Mass/volume] in Serum or Plasma (test code = 2093-3) 168 mg/dL 100-199 Triglyceride [Mass/volume] i n Serum or Plasma (test code = 2571-8) 77 mg/dL 0-149 Cholesterol in HDL [Mass/vol ume] in Serum or Plasma (test code = 2085-9) 60 mg/dL >39 Cholesterol in VLDL [Mass/vo lume] in Serum or Plasma by calculation (test code = 86810-4) 15 mg/dL 5-40 Cholesterol in LDL [Mass/vol ume] in Serum or Plasma by calculation (test code = 21048-0) 93 mg/dL 0-99 Laboratory comment [Text] in Report Narrative (test code = 58363-0) employee placement specialist Cholesterol in LDL/Cholester ol in HDL [Mass Ratio] in Serum or Plasma (test code = 87458-8) 1.6 ratio 0.0-3.2 [facility]Creatinine [Mass Ratio] in Urine 2021-03-26 00:00:00* Test Item Value Reference Range Interpretation Comme nts Creatinine [Mass/volume] in Urine (test code = 2161-8) 251.3 mg/dL not estab. Microalbumin [Mass/volume] i n Urine (test code = 98517-7) 19.5 ug/mL not estab. Albumin/Creatinine [Mass rat io] in Urine (test code = 9318-7) 8 mg/g creat 0-29 [facility]icsThyroxine (T4) free [Mass/volume] in Serum or [id number] 00:00:00* Test Item Value Reference Range Interpretation Comme nts Thyroxine (T4) free [Mass/vo lume] in Serum or Plasma (test code = 3024-7) 1.61 NG/dL 0.82-1.77 [facility]icsThyrotropin [Units/volume] in Serum or Plasma by Detection limit <= 0.005 mIU/[id number] 00:00:00* Test Item Value Reference Range Interpretation Comme nts Thyrotropin [Units/volume] i n Serum or Plasma by Detection limit <= 0.005 mIU/L (test code = 66565-6) 0.434 uIU/mL 0.450-4.500 L [facility] Ryhjmfq53-Cbppnalxsawbys D3+25-Hydroxyvitamin D2 [Mass/volume] in Serum or [id number] 00:00:00* Test Item Value Reference Range Interpretation Comme nts 25-Hydroxyvitamin D3+25-Hydroxyvitamin D2 [Mass/volume] in Serum or Plasma (test code = 92077-1) 34.8 NG/mL 30.0-100.0 [facility] W Auto Differential panel - [id number] 00:00:00* Test Item Value Reference Range Interpretation Comme nts Leukocytes [#/volume] in Blo od by Automated count (test code = 6690-2) 8.3 x10e3/uL 3.4-10.8 Erythrocytes [#/volume] in Blood by Automated count (test code = 789-8) 4.19 x10e6/uL 3.77-5.28 Hemoglobin [Mass/volume] in Blood (test code = 718-7) 9.5 g/dL 11.1-15.9 L Hematocrit [Volume Fraction] of Blood by Automated count (test code = 4544-3) 30.4 % 34.0-46.6 L Erythrocyte mean corpuscular volume [Entitic volume] by Automated count (test code = 787-2) 73 fL 79-97 L Erythrocyte mean corpuscular hemoglobin [Entitic mass] by Automated count (test code = 785-6) 22.7 pg 26.6-33.0 L Erythrocyte mean corpuscular hemoglobin concentration [Mass/volume] by Automated count (test code = 786-4) 31.3 g/dL 31.5-35.7 L Erythrocyte distribution wid th [Ratio] by Automated count (test code = 788-0) 15.1 % 11.7-15.4 Platelets [#/volume] in Bloo d by Automated count (test code = 777-3) 490 x10e3/uL 150-450 H Neutrophils/100 leukocytes i n Blood by Automated count (test code = 770-8) 53 % not estab. Lymphocytes/100 leukocytes i n Blood by Automated count (test code = 736-9) 36 % not estab. Monocytes/100 leukocytes in Blood by Automated count (test code = 5905-5) 8 % not estab. Eosinophils/100 leukocytes i n Blood by Automated count (test code = 713-8) 2 % not estab. Basophils/100 leukocytes in Blood by Automated count (test code = 706-2) 1 % not estab. immature cells (test code = immature cells) employee placement specialist Neutrophils [#/volume] in Bl ood by Automated count (test code = 751-8) 4.4 x10e3/uL 1.4-7.0 Lymphocytes [#/volume] in Bl ood by Automated count (test code = 731-0) 3.0 x10e3/uL 0.7-3.1 Monocytes [#/volume] in Bloo d by Automated count (test code = 742-7) 0.7 x10e3/uL 0.1-0.9 Eosinophils [#/volume] in Bl ood by Automated count (test code = 711-2) 0.2 x10e3/uL 0.0-0.4 Basophils [#/volume] in Bloo d by Automated count (test code = 704-7) 0.1 x10e3/uL 0.0-0.2 Immature granulocytes/100 leukocytes in Blood by Automated count (test code = 16058-0) 0 % not estab. Immature granulocytes [#/volume] in Blood by Automated count (test code = 96899-3) 0.0 x10e3/uL 0.0-0.1 Nucleated erythrocytes/100 leukocytes [Ratio] in Blood by Automated count (test code = 40615-8) employee placement specialist Morphology [Interpretation] in Blood Narrative (test code = 24303-6) employee placement specialist [facility] 2000 [facility] - Serum or [id number] 00:00:00* Test Item Value Reference Range Interpretation Comme nts Glucose [Mass/volume] in Serum or Plasma (test code = 2345-7) 146 mg/dL 65-99 H Urea nitrogen [Mass/volume] in Serum or Plasma (test code = 3094-0) 12 mg/dL 8-27 Creatinine [Mass/volume] in Serum or Plasma (test code = 2160-0) 0.67 mg/dL 0.57-1.00 Glomerular filtration rate/1.73 sq M.predicted among non-blacks [Volume Rate/Area] in Serum, Plasma or Blood by Creatinine-based formula (CKD-EPI) (test code = 32121-7) 92 mL/min/1.73 >59 Glomerular filtration rate/1.73 sq M.predicted among blacks [Volume Rate/Area] in Serum, Plasma or Blood by Creatinine-based formula (CKD-EPI) (test code = 46563-0) 106 mL/min/1.73 >59 Urea nitrogen/Creatinine [Mass Ratio] in Serum or Plasma (test code = 3097-3) 18 12-28 Sodium [Moles/volume] in Serum or Plasma (test code = 2951-2) 139 mmol/L 134-144 Potassium [Moles/volume] in Serum or Plasma (test code = 2823-3) 4.3 mmol/L 3.5-5.2 Chloride [Moles/volume] in Serum or Plasma (test code = 5-0) 101 mmol/L 96-106 Carbon dioxide, total [Moles/volume] in Serum or Plasma (test code = 2027-9) 23 mmol/L 20-29 Calcium [Mass/volume] in Serum or Plasma (test code = 45568-1) 9.5 mg/dL 8.7-10.3 Protein [Mass/volume] in Serum or Plasma (test code = 2885-2) 7.7 g/dL 6.0-8.5 Albumin [Mass/volume] in Serum or Plasma (test code = 1751-7) 4.1 g/dL 3.8-4.8 Globulin [Mass/volume] in Serum by calculation (test code = 78810-1) 3.6 g/dL 1.5-4.5 Albumin/Globulin [Mass Ratio ] in Serum or Plasma (test code = 1759-0) 1.1 1.2-2.2 L Bilirubin.total [Mass/volume ] in Serum or Plasma (test code = 1975-2) <0.2 0.0-1.2 Alkaline phosphatase [Enzymatic activity/volume] in Serum or Plasma (test code = 6768-6) 70 IU/L 48-121 Aspartate aminotransferase [Enzymatic activity/volume] in Serum or Plasma (test code = 1920-8) 36 IU/L 0-40 Alanine aminotransferase [Enzymatic activity/volume] in Serum or Plasma (test code = 1742-6) 32 IU/L 0-32 [facility] - Serum or [id number] 00:00:00* Test Item Value Reference Range Interpretation Comme nts Cholesterol [Mass/volume] in Serum or Plasma (test code = 2093-3) 168 mg/dL 100-199 Triglyceride [Mass/volume] i n Serum or Plasma (test code = 2571-8) 77 mg/dL 0-149 Cholesterol in HDL [Mass/vol ume] in Serum or Plasma (test code = 2085-9) 60 mg/dL >39 Cholesterol in VLDL [Mass/vo lume] in Serum or Plasma by calculation (test code = 61978-2) 15 mg/dL 5-40 Cholesterol in LDL [Mass/vol ume] in Serum or Plasma by calculation (test code = 29805-6) 93 mg/dL 0-99 Laboratory comment [Text] in Report Narrative (test code = 02985-6) employee placement specialist Cholesterol in LDL/Cholester ol in HDL [Mass Ratio] in Serum or Plasma (test code = 69459-2) 1.6 ratio 0.0-3.2 [facility] [Mass Ratio] in Urine 2021-03-26 00:00:00* Test Item Value Reference Range Interpretation Comme nts Creatinine [Mass/volume] in Urine (test code = 2161-8) 251.3 mg/dL not estab. Microalbumin [Mass/volume] i n Urine (test code = 10797-5) 19.5 ug/mL not estab. Albumin/Creatinine [Mass rat io] in Urine (test code = 9318-7) 8 mg/g creat 0-29 [facility] (T4[facility] free [Mass/volume] in Serum or [id number] 00:00:00* Test Item Value Reference Range Interpretation Comme nts Thyroxine (T4) free [Mass/vo lume] in Serum or Plasma (test code = 3024-7) 1.61 NG/dL 0.82-1.77 [facility]Th[facility] [Units/volume] in Serum or Plasma by Detection limit <= 0.005 mIU/[id number] 00:00:00* Test Item Value Reference Range Interpretation Comme nts Thyrotropin [Units/volume] i n Serum or Plasma by Detection limit <= 0.005 mIU/L (test code = 69850-2) 0.434 uIU/mL 0.450-4.500 L [facility] Bjznliu51-Casiopcywtqsej D3+25-Hydroxyvitamin D2 [Mass/volume] in Serum or Csztuo2981-17-12 00:00:00* Test Item Value Reference Range Interpretation Comme nts 25-Hydroxyvitamin D3+25-Hydroxyvitamin D2 [Mass/volume] in Serum or Plasma (test code = 01217-9) 34.8 NG/mL 30.0-100.0 [facility]
[2023-10-12] MEDS ORDERED: CEFTRIAXONE 1000 MG/VIAL ONE (16:58)
[2023-10-12] MEDS ORDERED: MORPHINE 4 MG/ML SYR ONE (16:58)
[2023-10-12] MEDS ORDERED: ONDANSETRON 4 MG/2 ML VIAL ONE ×2 (16:58→21:14)
[2023-10-12] MEDS ORDERED: FAMOTIDINE 20 MG/2 ML VIAL IV ONE (16:59)
[2023-10-12] MEDS ORDERED: NA CHLORIDE 0.9% 1,000 ML ONE ×2 (16:59→21:15)
[2023-10-12] MEDS ORDERED: METRONIDAZOLE 500mg IVPB 500 MG/100 ML BAG IV ONE (17:00)
[2023-10-12 17:37] LABS: Absolute Lymphocytes (CBC) 1.9 K/uL (0.7-4.9); Hematocrit 32.3 % (36.0-45.0); Lymphocytes % 17.8 % (15.3-44.8); MCV 72.8 fL (80-100); MPV 7.3 fL (7.6-11.3); Platelets 833 thou/uL (152-406); RBC Red Blood Cell Count 4.43 M/uL (3.86-4.86)
[2023-10-12 17:51] LABS: Bilirubin Total 0.4 mg/dL (0.2-1.0); Potassium 3.5 mEq/L (3.5-5.1); Protein, Total 9.2 g/dL (6.4-8.2)
--- NOTE | 2023-10-12 18:02 | ER ---
Nurse's Notes [facility] Name: Neela Chan Age: 68 yrs Sex: Female : 1955 Arrival Date: 10/12/2023 Time: 15:11 Bed 16 Private MD: Diagnosis: Abdominal pain, Generalized Presentation: 10/12 15:26 Chief complaint: Patient states: SENT FROM DR VELA OFFICE FOR CONTINUING RLQ PAIN, bp SEEN FOR SAME AND CLEARED 2 WK AGO. Coronavirus screen: At this time, the client does not indicate any symptoms associated with coronavirus-19. Ebola Screen: No symptoms or risks identified at this time. Initial Sepsis Screen: Does the patient meet any 2 criteria? No. Patient's initial sepsis screen is negative. Does the patient have a suspected source of infection? No. Patient's initial sepsis screen is negative. Risk Assessment: Do you want to hurt yourself or someone else? Patient reports no desire to harm self or others. Onset of symptoms is unknown. 15:26 Method Of Arrival: Ambulatory bp 15:26 Acuity: JARED 3 bp Triage Assessment: 15:27 General: Appears in no apparent distress. Behavior is calm, cooperative, appropriate bp for age. Pain: Complains of pain in right lower quadrant. GI: Reports lower abdominal pain. Historical: - Allergies: 15:27 No Known Allergies; bp - PMHx: 15:27 diabetes mellitus; Hypercholesterolemia; Hypertensive disorder; bp - PSHx: 15:27 hysterectomy; bp - Immunization history:: Adult Immunizations up to date. - Social history:: Smoking status: unknown. Screenin:30 [facility] ED Fall Risk Assessment (Adult) History of falling in the last 3 months, rs5 including since admission No falls in past 3 months (0 pts) Confusion or Disorientation No (0 pts) Intoxicated or Sedated No (0 pts) Impaired Gait No (0 pts) Mobility Assist Device Used No (0 pt) Altered Elimination No (0 pt) Score/Fall Risk Level 0 - 2 = Low Risk Oriented to surroundings, Maintained a safe environment. Abuse screen: Denies threats or abuse. Nutritional screening: No deficits noted. Tuberculosis screening: No symptoms or risk factors identified. Assessment: 15:30 General: Appears in no apparent distress. uncomfortable, Behavior is calm, cooperative. rs5 Pain: Complains of pain in right lower quadrant Pain does not radiate. Pain currently is 8 out of 10 on a pain scale. Quality of pain is described as aching, Pain began 2-3 days ago. Is continuous. Neuro: Level of Consciousness is awake, alert, obeys commands, Oriented to person, place, time, situation. Cardiovascular: Heart tones S1 S2 present Rhythm is regular. Respiratory: Airway is patent Respiratory effort is even, unlabored, Respiratory pattern is regular, symmetrical, Breath sounds are clear bilaterally. GI: Bowel sounds present X 4 quads. Abd is soft and non tender X 4 quads. Reports nausea, Pain is 8 out of 10 on a pain scale. vomiting. : No signs and/or symptoms were reported regarding the genitourinary system. EENT: No signs and/or symptoms were reported regarding the EENT system. Derm: Skin is intact, Skin is dry, Skin is normal, Skin temperature is warm. 15:30 Musculoskeletal: Range of motion: intact in all extremities. rs5 16:45 Reassessment: Patient and/or family updated on plan of care and expected duration. Pain rs5 level reassessed. Patient is alert, oriented x 3, equal unlabored respirations, skin warm/dry/pink. Patient denies pain at this time. Patient states feeling better. 17:50 Reassessment: No changes from previously documented assessment. rs5 18:40 Reassessment: Patient and/or family updated on plan of care and expected duration. Pain rs5 level reassessed. Patient is alert, oriented x 3, equal unlabored respirations, skin warm/dry/pink. 19:45 General: Appears comfortable, Behavior is calm, cooperative. Pain: Denies pain. Neuro: ha1 Level of Consciousness is awake, alert, obeys commands, Oriented to person, place, time, situation. Cardiovascular: Capillary refill < 3 seconds Patient's skin is warm and dry. Respiratory: Airway is patent Respiratory effort is even, unlabored, Respiratory pattern is regular, symmetrical. GI: Abdomen is round non-distended. Derm: Skin is pink, warm \T\ dry. Musculoskeletal: Circulation, motion, and sensation intact. Range of motion: intact in all extremities. Vital Signs: 15:26 BP 128 / 79; Pulse 80; Resp 16; Temp 98; Pulse Ox 100% ; bp 16:30 BP 140 / 74; Pulse 75; Resp 17; Pulse Ox 99% on R/A; rs5 18:23 BP 147 / 77; Pulse 78; Resp 17; Pulse Ox 99% on R/A; rs5 19:45 BP 160 / 87; Pulse 75; Resp 17 S; Pulse Ox 99% on R/A; ha1 20:43 Weight 82.1 kg (R); Height 5 ft. 11 in. (R); mc5 20:45 BP 155 / 86; Pulse 79; Resp 17 S; Pulse Ox 99% on R/A; ha1 20:43 Body Mass Index 25.24 (82.10 kg, 180.34 cm) 5 ED Course: 15:16 Patient arrived in ED. mr 15:19 Miguel Palacio MD is Attending Physician. ec2 15:27 Triage completed. bp 15:29 Arm band placed on. bp 15:30 Patient has correct armband on for positive identification. Placed in gown. Bed in low rs5 position. Call light in reach. Side rails up X2. 16:00 Inserted saline lock: 22 gauge in left antecubital area, using aseptic technique. rs5 16:46 Patient placed in an exam room, on a stretcher. ll1 16:53 Jered Franklin, JANINA is Primary Nurse. rs5 18:01 Saji Vargas MD is Hospitalizing Provider. ec2 18:24 No provider procedures requiring assistance completed. rs5 18:41 Patient admitted, IV remains in place. rs5 18:51 CT Abd/Pelvis - PO and IV Contrast In Process Unspecified. EDMS Administered Medications: 17:20 Drug: NS 0.9% IV 1000 ml IV at 1 bolus Per protocol; 1000 mL bolus Route: IV; Rate: 1 rs5 bolus; Site: left antecubital; 17:40 Follow up: Response: No adverse reaction rs5 17:20 Drug: Famotidine IVP 20 mg IVP once; dilute with 10 mL 0.9% NaCl; give over 2 minutes rs5 Route: IVP; Site: left antecubital; 17:40 Follow up: Response: No adverse reaction rs5 17:20 Drug: Ondansetron IVP 4 mg IVP once; over 2 minutes Route: IVP; Site: left antecubital; rs5 17:40 Follow up: Response: No adverse reaction; Nausea is decreased rs5 17:20 Drug: morphine IVP or IV 4 mg IVP once over 4 mins Route: IVP; Infused Over: 4 mins; rs5 Site: left antecubital; 17:40 Follow up: Response: No adverse reaction; Pain is decreased rs5 17:20 Drug: Rocephin IV 1 grams IV at calculated rate once; Given slow IV push per pharmacy rs5 instructions Route: IV; Rate: calculated rate; Site: left antecubital; 17:40 Follow up: Response: No adverse reaction rs5 17:30 Drug: metroNIDAZOLE IVPB 500 mg 100 ml IVPB at 200 ml/hr once over 30 mins Volume: 100 rs5 ml; Route: IVPB; Rate: 200 ml/hr; Infused Over: 30 mins; Site: left antecubital; 17:45 Follow up: Response: No adverse reaction rs5 18:10 Drug: NS 0.9% IV 1000 ml IV at 1 bolus Per protocol; 1000 mL bolus Route: IV; Rate: 1 rs5 bolus; Site: left antecubital; 18:22 Follow up: Response: No adverse reaction rs5 Medication: 18:24 VIS not applicable for this client. rs5 Outcome: 18:02 Decision to Hospitalize by Provider. ec2 18:41 Admitted to ER Hold. Please see [facility] for further documentation. rs5 18:41 Condition: stable 18:41 Instructed on the need for admit, Demonstrated understanding of instructions, 10/13 17:27 Patient left the ED. cm10 Signatures: Dispatcher [employer] EDOK Jaime Elba, Reg Reg LacieAblert RN RN bp Lewis, Lynsay, RN RN 1 Rachelle Buckley RN RN 1 Jered Franklin RN RN rs5 Jeana Vela RN RN cm10 Mya Hoff 5 Miguel Palacio MD MD ec2 Corrections: (The following items were deleted from the chart) 10/12 18:04 18:04 NS 0.9% IV 1000 ml IV at 1 bolus in left antecubital rs5 rs5 10/13 02:53 10/12 19:45 BP 121 / 70; Pulse 75bpm; Resp 17bpm; Spontaneous; Pulse Ox 99% RA; ha1 ha1
--- NOTE | 2023-10-12 18:02 | EDPHYS ---
Physician Documentation [facility] Name: Neela Chan Age: 68 yrs Sex: Female : 1955 Arrival Date: 10/12/2023 Time: 15:11 Bed 16 Private MD: ED Physician Miguel Palacio HPI: 10/12 16:12 This 68 yrs old Black Female presents to ER via Ambulatory with complaints of Abdominal ec2 Pain, Dehydrated. 16:12 Patient arrives today for evaluation of abdominal pain. Patient was recently admitted ec2 for similar complaints, diagnosed with a partial small bowel obstruction/ileus and medically managed. Patient was seeing Dr. Carvajal, surgery as an outpatient patient and recommended ER evaluation for persistent abdominal pain. I discussed case with Dr. Carvajal, ultimately recommended additional ER workup and admission for inpatient consultation we will see. Patient reports she been having persistent abdominal pain, generalized however worse in the right abdomen. Issues with decreased p.o. intake as well, feels that she is dehydrated.. Historical: - Allergies: 15:27 No Known Allergies; bp - PMHx: 15:27 diabetes mellitus; Hypercholesterolemia; Hypertensive disorder; bp - PSHx: 15:27 hysterectomy; bp - Immunization history:: Adult Immunizations up to date. - Social history:: Smoking status: unknown. ROS: 16:12 Constitutional: as per hpi ec2 Exam: 16:12 Constitutional: GEN: NAD Head: atraumatic Eyes: EOMI Ears: External ears are ec2 normal. CV: regular rate LUNGS: no respiratory distress ABD: non-distended, soft, generally tender, no guarding, not rigid SKIN: no evidence of rashes MSK: no evidence of trauma NEURO: moves all extremities equally Vital Signs: 15:26 BP 128 / 79; Pulse 80; Resp 16; Temp 98; Pulse Ox 100% ; bp 16:30 BP 140 / 74; Pulse 75; Resp 17; Pulse Ox 99% on R/A; rs5 18:23 BP 147 / 77; Pulse 78; Resp 17; Pulse Ox 99% on R/A; rs5 19:45 BP 160 / 87; Pulse 75; Resp 17 S; Pulse Ox 99% on R/A; ha1 20:43 Weight 82.1 kg (R); Height 5 ft. 11 in. (R); mc5 20:45 BP 155 / 86; Pulse 79; Resp 17 S; Pulse Ox 99% on R/A; ha1 20:43 Body Mass Index 25.24 (82.10 kg, 180.34 cm) mc5 MDM: 15:31 Patient medically screened. ec2 16:12 Data reviewed: vital signs. ED course: Patient arrives today for evaluation of ec2 generalized abdominal pain. Examination remarkable for abdominal findings as noted above. Will obtain lab work, CT imaging, treat the patient's pain, give the patient antibiotics. Currently considering process such as intra-abdominal infection, small bowel obstruction, ileus.. 18:01 ED course: Metabolic profile shows slight hyponatremia, renal dysfunction noted. Lipase ec2 within normal ranges, CBC is reassuring. Surgery with recommendation for CT imaging and admission, discussed case with hospitalist, pending admission. . 10/12 15:30 Order name: CBC with Diff; Complete Time: 17:47 ec2 10/12 15:30 Order name: CMP; Complete Time: 18:01 ec2 10/12 15:30 Order name: Lipase; Complete Time: 18:01 ec2 10/12 19:51 Order name: Urinalysis w/ reflexes EDMS 10/12 19:51 Order name: CBC with Automated Diff EDMS 10/12 19:51 Order name: CBC with Automated Diff EDMS 10/12 19:51 Order name: Comprehensive Metabolic Panel EDMS 10/12 19:51 Order name: Comprehensive Metabolic Panel EDMS 10/12 21:17 Order name: Glucose, Ancillary Testing EDMS 10/13 08:11 Order name: Glucose, Ancillary Testing EDWY 10/13 12:10 Order name: Glucose, Ancillary Testing EDWY 10/13 13:05 Order name: Body Fluid Cell Count EDMS 10/13 17:00 Order name: Glucose, Ancillary Testing EDMS 10/12 16:08 Order name: CT Abd/Pelvis - PO and IV Contrast ec2 10/13 10:36 Order name: US EDWY 10/12 15:30 Order name: IV Saline Lock; Complete Time: 17:57 ec2 10/12 15:30 Order name: Labs collected and sent; Complete Time: 17:57 ec2 Administered Medications: 17:20 Drug: NS 0.9% IV 1000 ml IV at 1 bolus Per protocol; 1000 mL bolus Route: IV; Rate: 1 rs5 bolus; Site: left antecubital; 17:40 Follow up: Response: No adverse reaction rs5 17:20 Drug: Famotidine IVP 20 mg IVP once; dilute with 10 mL 0.9% NaCl; give over 2 minutes rs5 Route: IVP; Site: left antecubital; 17:40 Follow up: Response: No adverse reaction rs5 17:20 Drug: Ondansetron IVP 4 mg IVP once; over 2 minutes Route: IVP; Site: left antecubital; rs5 17:40 Follow up: Response: No adverse reaction; Nausea is decreased rs5 17:20 Drug: morphine IVP or IV 4 mg IVP once over 4 mins Route: IVP; Infused Over: 4 mins; rs5 Site: left antecubital; 17:40 Follow up: Response: No adverse reaction; Pain is decreased rs5 17:20 Drug: Rocephin IV 1 grams IV at calculated rate once; Given slow IV push per pharmacy rs5 instructions Route: IV; Rate: calculated rate; Site: left antecubital; 17:40 Follow up: Response: No adverse reaction rs5 17:30 Drug: metroNIDAZOLE IVPB 500 mg 100 ml IVPB at 200 ml/hr once over 30 mins Volume: 100 rs5 ml; Route: IVPB; Rate: 200 ml/hr; Infused Over: 30 mins; Site: left antecubital; 17:45 Follow up: Response: No adverse reaction rs5 18:10 Drug: NS 0.9% IV 1000 ml IV at 1 bolus Per protocol; 1000 mL bolus Route: IV; Rate: 1 rs5 bolus; Site: left antecubital; 18:22 Follow up: Response: No adverse reaction rs5 Disposition Summary: 10/12/23 18:02 Hospitalization Ordered Notes: Hospitalization Status: Inpatient Admission ec2 Provider: Saji Vargas ec2 Condition: Stable ec2 Problem: an ongoing problem ec2 Symptoms: are unchanged ec2 Bed/Room Type: Standard ec2 Location: Telemetry/MedSurg (Inpatient)(10/13/23 16:28) em1 Room Assignment: 414(10/13/23 16:28) em1 Diagnosis - Abdominal pain, Generalized ec2 Forms: - Medication Reconciliation Form ec2 - SBAR form ec2 - Leadership Thank You Letter ec2 Signatures: Dispatcher [employer] Erwin Copeland em1 Santi Ross RN RN jb4 Albert Medellin, JANINA RN bp Jered Franklin RN RN rs5 Miguel Palacio MD MD ec2 Corrections: (The following items were deleted from the chart) 23: 18:02 Telemetry/MedSurg (Inpatient) ec2 jb4 : 18:02 ec2 jb4 10/13 16:28 10/12 23:33 [facility] ER [facility] jb4 em1 10/13 16:10/12 23:33 [facility]- jb4 em1
--- NOTE | 2023-10-12 18:43 | P.HP ---
Certification for Inpatient Patient admitted to: Inpatient With expected LOS: >2 Midnights Practitioner: I am a practitioner with admitting privileges, knowledge of patient current condition, hospital course, and medical plan of care. Services: Services provided to patient in accordance with Admission requirements found in Title 42 Section 412.3 of the Code of Federal Regulations Patient History Date of Service: 10/12/23 Reason for admission: Abdominal Pain History of Present Illness: 68-year-old AAF female with past medical history of hypertension, hyperlipidemi a, diabetes, history of cholecystectomy who was brought to ER with abdominal pain and dehydratio. Patient was recently admitted for similar complaints, diagnosed with a partial small bowel obstruction / ileus and medically managed. Patient was seeing Dr. Carvajal, surgery as an outpatient and recommended to come to the ER for evaluation of persistent abdominal pain. Patient reports she been having persistent abdominal pain, 8 out of 10 in severity worse in the right side of the abdomen. No radiation. Associated with some nausea but no vomiting. Complains of abdominal distention as well. Patient has poor intake and she feels dehydrated as well. Patient was assessed in the ER and was admitted for further management . Allergies No Known Allergies Allergy (Unverified 03/31/22 22:21) Home medications list reviewed: Yes Home Medications: Amlodipine [Norvasc*] 10 mg DAILY 03/31/22 Hum Insulin NPH/Reg Insulin Hm [Humulin 70-30 Vial] 50 units BID 03/31/22 Lovastatin 20 mg DAILY 03/31/22 Metformin HCl 1,000 mg DAILY 03/31/22 lisinopriL [Lisinopril] 20 mg DAILY 03/31/22 Cetirizine HCl [Zyrtec] 10 PO 09/28/23 Clopidogrel Bisulfate [Plavix] 75 mg PO 09/28/23 Ferrous Sulfate/Folic Acid [Bentivite Bx Tablet] 09/28/23 Amox/Clavulanate [Augmentin 875-125 Tab] 1 tab PO BID 7 Days #14 tab 10/01/23 Codeine/APAP [Tylenol W/Codeine #3 tab] 1 tab PO Q8H PRN #15 tab 10/01/23 Codeine/APAP [Tylenol W/Codeine #3 tab] 1 tab PO Q8HP PRN #15 tab 10/01/23 - Past Medical/Surgical History Diabetic: Yes Past Medical History: Reviewed- Non-Contributory -: Diabetes type 2insulin-dependent -: Hypertension -: Hyperlipidemia Past Surgical History: Reviewed- Non-Contributory -: Hysterectomy Psychosocial/ Personal History: Patient lives at home with her family - Family History Family History: Reviewed- Non-Contributory - Family History Mother -: Diabetes Father -: Heart disease - Social History Smoking Status: Never smoker Alcohol use: Yes CD- Drugs: No Caffeine use: Yes Review of Systems 10-point ROS is otherwise unremarkable General: Unremarkable Gastrointestinal: Nausea, Abdominal Pain, Distention Physical Examination - Vital Signs Temperature: 98.7 F Blood Pressure: 148/84 Pulse: 76 Respirations: 18 Pulse Ox (%): 97 - Physical Exam General: Alert, Oriented x3, Cooperative, Mild distress HEENT: Atraumatic, Normocephalic Neck: Supple, No Thyromegaly Respiratory: Clear to auscultation bilaterally, Normal air movement Cardiovascular: No edema, Regular rate/rhythm, Normal S1 S2, No rubs Capillary refill: <2 Seconds Gastrointestinal: Hypoactive, Distended, Ascites, Tenderness Musculoskeletal: No clubbing, No swelling Integumentary: No rashes Neurological: Normal speech, Normal strength at 5/5 x4 extr, Normal tone, Cranial nerves 3-12 intact, Normal reflexes 2+ Lymphatics: No axilla or inguinal lymphadenopathy - Studies Laboratory Data (last 24 hrs) 10/12/23 10/12/23 17:20 17:20 WBC 10.90 Hgb 10.4 L Hct 32.3 L Plt Count 833 H Sodium 130 L Potassium 3.5 BUN 16 Creatinine 1.09 H Glucose 139 H Total Bilirubin 0.4 AST 23 ALT 20 Alkaline Phosphatase 62 Lipase 44 Imagings Data: darrenrice Reason for Exam: ABD PAIN Report Status: Signed EXAM DESCRIPTION: CT - Abdomen Pelvis W Contrast - 10/12/2023 6:49 pm CLINICAL HISTORY: Abdominal pain COMPARISON: September 28, 2023 TECHNIQUE: Computed axial tomography of the abdomen and pelvis was obtained. 100 cc Isovue-300 is administered intravenously. Oral contrast was given. All CT scans are performed using dose optimization technique as appropriate and may include automated exposure control or mA/KV adjustment according to patient size. FINDINGS: Cholecystectomy. 1 centimeter low to intermediate density lesion spleen unchanged Pancreas, adrenals and kidneys unremarkable Normal appendix Small to moderate amount ascites Greater ovum mentum nodularity. Hysterectomy. No adnexal mass seen Small umbilical hernia IMPRESSION: Nodularity greater omentum may indicate peritoneal carcinomatosis. Small to moderate amount of ascites 1 centimeter splenic lesion are nonspecific. It is unchanged from the prior exam Assessment and Plan - Problems (Diagnosis) (1) Intractable abdominal pain Current Visit: Yes Status: Acute Plan: Pain control CT findings noted May need paracentesis Surgery consulted Dr. Carvajal will see the patient in a.m. (2) Dehydration Current Visit: Yes Status: Acute Plan: Started on IV hydration Monitor volume status Patient has anorexia (3) Ileus, unspecified Current Visit: No Status: Acute Plan: Significant abdominal distention CT findings noted did not show any SBO Possibly due to ascites and peritoneal carcinomatosis Supportive management Electrolytes monitor and replace accordingly (4) Hyponatremia Current Visit: Yes Status: Acute Plan: Hyponatremia noted Hypercalcemia noted Electrolytes monitor and replace accordingly Monitor closely under telemetry (5) Diabetes Current Visit: No Status: Chronic Plan: Insulin sliding scale Accu-Chek before every meal and at bedtime Will get an A1c (6) Hypertension Current Visit: No Status: Chronic Plan: Continue home medications and titrate as needed (7) Acute renal insufficiency Current Visit: Yes Status: Acute Plan: Due to dehydration Will start on IV rehydration and monitor renal parameters (8) Thrombocytosis Current Visit: Yes Status: Acute Plan: Monitor CBC in a.m. (9) Peritoneal carcinomatosis Current Visit: Yes Status: Acute Plan: CT findings noted Surgical consult May need paracentesis and fluid studies May need to follow-up with heme oncology as outpatient Discharge Plan: Home Plan to discharge in: Greater than 2 days - Advance Directives Does patient have a Living Will: Yes Does patient have a Durable POA for Healthcare: No - Code Status/Comfort Care Code Status: Full Code Time Spent Managing Pts Care (In Minutes): 48
--- NOTE | 2023-10-12 19:10 | RAD REPORT ---
EXAM DESCRIPTION: CT - Abdomen Pelvis W Contrast - 10/12/2023 6:49 pm CLINICAL HISTORY: Abdominal pain COMPARISON: September 28, 2023 TECHNIQUE: Computed axial tomography of the abdomen and pelvis was obtained. 100 cc Isovue-300 is ad ministered intravenously. Oral contrast was given. All CT scans are performed using dose optimization technique as appropriate and may include automated exposure control or mA/KV adjustment according to patient size. FINDINGS: Cholecystectomy. 1 centimeter low to intermediate density lesion spleen unchanged Pancreas, adrenals and kidneys unremarkable Normal appendix Small to moderate amount ascites Greater ovum mentum nodularity. Hysterectomy. No adnexal mass seen Small umbilical hernia IMPRESSION: Nodularity greater omentum may indicate peritoneal carcinomatosis. Small to moderate amount of ascites 1 centimeter splenic lesion are nonspecific. It is unchanged from the prior exam
[2023-10-12] MEDS ORDERED: ACETAMINOPHEN 500 MG TAB PO PRN (19:46)
[2023-10-12] MEDS ORDERED: KETOROLAC 30 MG/ML INJ IV PRN (19:49)
[2023-10-12 20:51] VITALS: BMI 25.2
[2023-10-12] MEDS: NA CHLORIDE 0.9% 1,000 ML IV SCH (21:40)
[2023-10-12] MEDS: ONDANSETRON 4 MG/2 ML VIAL IV PRN (21:42)
[2023-10-12] MEDS: INSULIN REGULAR (HUMAN) 100 UNIT/ML SQ SCH (21:47)
[2023-10-13] MEDS ORDERED: MORPHINE 2 MG/ML SYR ONE ×2 (00:23→13:52)
[2023-10-13 04:34] LABS: Absolute Lymphocytes (CBC) 1.9 K/uL (0.7-4.9); Hematocrit 27.9 % (36.0-45.0); Lymphocytes % 21.5 % (15.3-44.8); MCV 72.5 fL (80-100); MPV 7.2 fL (7.6-11.3); Platelets 658 thou/uL (152-406); RBC Red Blood Cell Count 3.85 M/uL (3.86-4.86)
[2023-10-13 04:57] LABS: Albumin 2.4 g/dL (3.4-5.0); Bilirubin Total 0.3 mg/dL (0.2-1.0); Potassium 3.9 mEq/L (3.5-5.1); Protein, Total 6.9 g/dL (6.4-8.2)
[2023-10-13] MEDS: INSULIN REGULAR (HUMAN) 100 UNIT/ML SQ SCH ×4 (07:30→20:08)
[2023-10-13] MEDS ORDERED: PNEUMOCOCCAL VACCINE 0.5 ML IMVAC ONE (08:00)
[2023-10-13] MEDS ORDERED: INFLUENZA VACCINE (for 6+ mo) 0.5 ML DOSE IMVAC ONE (08:00)
[2023-10-13] MEDS: ENOXAPARIN 40 MG/0.4 ML SQ SCH (09:00)
[2023-10-13] MEDS ORDERED: ENOXAPARIN 40 MG/0.4 ML SQ ONE (09:04)
[2023-10-13] MEDS ORDERED: NA CHLORIDE 0.9% 1,000 ML ONE (09:04)
[2023-10-13] MEDS: NA CHLORIDE 0.9% 1,000 ML IV SCH ×3 (09:41→23:19)
--- NOTE | 2023-10-13 10:36 | RAD REPORT ---
EXAM DESCRIPTION: US - Paracentesis Proc Guidance - 10/13/2023 10:29 am CLINICAL HISTORY: Peritoneal carcinomatosis with ascites FINDINGS: The risks, benefits and alternatives to the procedure were explained to the patient and in formed consent obtained. The skin and deeper tissues were anesthetized with Lidocaine. Under sonographic guidance an 8 Trin[place] catheter was placed into the right lower quadrant. 100 cc of yellow fluid removed. Fluid sent to the lab. The patient experienced no immediate complication. IMPRESSION: Paracentesis
--- NOTE | 2023-10-13 12:21 | P.PN ---
Date of Service: 10/13/23 Subjective: reports abdominal pain progressively worsened last few days Poor oral intake last few days secondary to abdominal pain / nausea (no reported vomiting) plan for paracentesis at bedside +cough afebrile ROS: 10 point ROS as noted above, otherwise negative Physical Exam: GEN: Alert, oriented, NAD HEENT: Normal conjunctiva, sclera anicteric CV: Regular rate and rhythm, no edema Pulm: Nonlabored respirations on room air, clear bilaterally, +cough ABD: Hypoactive, small-mod Ascites, abdominal tenderness Neuro: Normal speech, normal affect vitals reviewed Problem List: Intractable abdominal pain likely secondary to Peritoneal carcinomatosis Small-mod Ascites, s/p paracentesis (10/13) IDDM2 Thrombocytosis Severe iron deficiency anemia Hypertension Hyperlipidemia Intractable abdominal pain likely secondary to Peritoneal carcinomatosis Advised to come to ER per Dr. Carvajal recommendations at outpatient follow up. Patient reports worsening abdominal pain, nausea without vomiting. poor intake. Recent admit for ileus vs SBO. had improved with bowel rest, pain medication, medical management. Discharged 10/01/23 on augmentin. Patient reports h/o hysterectomy states "long time ago". Unsure if they took out her ovaries or not. reports being done at [facility] CT abdomen (10/12): Nodularity greater omentum may indicate peritoneal carcinomatosis. small mod ascites. 1cm splenic lesion are nonspecific General surgery - Dr. Carvajal consulted PRN analgesics / antiemetics Continue IV fluids diet per surgery Small-mod Ascites, s/p paracentesis (10/13) small mod ascites noted on CT abdomen 10/12. s/p paracentesis 10/13. ~100cc of yellow fluid removed follow cytology / cultures Severe Iron deficiency anemia reported longstanding history and needed IV iron in the past. iron studies from last hospitalization (09/30/23): consistent with severe iron deficiency anemia; iron: 14, %Tsat: 3.4 Monitor H&H. Transfuse for hgb < 7. IDDM2 Accu-Cheks, Insulin sliding scale Thrombocytosis monitor CBC Hypertension Hyperlipidemia confirm home medications, restart as appropriate VTE: SCD for now Code: Full Dispo: Home, 1-2 days Pending further work up, Surgery recommendations
[2023-10-13 12:41] LABS: Body Fluid WBC 1830 /mm^3
[2023-10-13 13:13] LABS: Body Fluid Source PLEURAL; Color of fluid Yellow (COLORLESS)
[2023-10-13 13:14] LABS: Appearance SLT. TURBID (CLEAR)
[2023-10-13] MEDS: MORPHINE 2 MG/ML SYR IV PRN ×2 (14:00→20:09)
[2023-10-13] MEDS: CEFTRIAXONE 2,000 MG in NA CHLORIDE 0.9% 100 ML IV SCH (20:07)
[2023-10-13] MEDS: ONDANSETRON 4 MG/2 ML VIAL IV PRN (20:10)
[2023-10-14] MEDS: ONDANSETRON 4 MG/2 ML VIAL IV PRN ×3 (01:44→19:48)
[2023-10-14] MEDS: MORPHINE 2 MG/ML SYR IV PRN ×4 (01:44→19:47)
[2023-10-14 07:07] LABS: Absolute Lymphocytes (CBC) 1.5 K/uL (0.7-4.9); Hematocrit 26.9 % (36.0-45.0); Lymphocytes % 18.7 % (15.3-44.8); MCV 71.7 fL (80-100); MPV 7.2 fL (7.6-11.3); Platelets 661 thou/uL (152-406); RBC Red Blood Cell Count 3.76 M/uL (3.86-4.86)
[2023-10-14] MEDS: INSULIN REGULAR (HUMAN) 100 UNIT/ML SQ SCH ×4 (07:30→19:47)
[2023-10-14 07:38] LABS: Albumin 2.2 g/dL (3.4-5.0); Bilirubin Total 0.3 mg/dL (0.2-1.0); Magnesium 1.2 mg/dL (1.6-2.4); Potassium 3.5 mEq/L (3.5-5.1); Protein, Total 6.6 g/dL (6.4-8.2)
[2023-10-14] MEDS: CEFTRIAXONE 2,000 MG in NA CHLORIDE 0.9% 100 ML IV SCH (08:10)
[2023-10-14] MEDS: ENOXAPARIN 40 MG/0.4 ML SQ SCH (08:11)
--- NOTE | 2023-10-14 09:29 | P.CNS ---
Date of Consult: 10/14/23 Reason for Consult: colitis/carcinomatosis/peritonitis Chief Complaint: Abdominal Pain History of Present Illness: 68-year-old AAF female with past medical history of hypertension, hyperlipidemia, diabetes, history of cholecystectomy who presented to the ED with complaints of abdominal pain. Of note, patient was recently admitted for similar complaints and was diagnosed with a partial small bowel obstruction / ileus which was medically managed. She returns to the ED with continued reports of abdominal pain. CT abdomen "Nodularity greater omentum may indicate peritoneal carcinomatosis. Small to moderate amount of ascites. 1 centimeter splenic lesion are nonspecific. It is unchanged from the prior exam." s/p paracentesis 10/13, fluid sent for culture. Labs sent for further eval of malignancy. Allergies No Known Allergies Allergy (Unverified 03/31/22 22:21) Home medications list reviewed: Yes Home Medications: Amlodipine [Norvasc*] 10 mg DAILY 03/31/22 Hum Insulin NPH/Reg Insulin Hm [Humulin 70-30 Vial] 50 units BID 03/31/22 Lovastatin 20 mg DAILY 03/31/22 Metformin HCl 1,000 mg DAILY 03/31/22 lisinopriL [Lisinopril] 20 mg DAILY 03/31/22 Cetirizine HCl [Zyrtec] 10 PO 09/28/23 Clopidogrel Bisulfate [Plavix] 75 mg PO 09/28/23 Ferrous Sulfate/Folic Acid [Bentivite Bx Tablet] 09/28/23 Amox/Clavulanate [Augmentin 875-125 Tab] 1 tab PO BID 7 Days #14 tab 10/01/23 Codeine/APAP [Tylenol W/Codeine #3 tab] 1 tab PO Q8H PRN #15 tab 10/01/23 Codeine/APAP [Tylenol W/Codeine #3 tab] 1 tab PO Q8HP PRN #15 tab 10/01/23 - Past Medical/Surgical History Diabetic: Yes -: Diabetes type 2insulin-dependent -: Hypertension -: Hyperlipidemia -: Hysterectomy Psychosocial/ Personal History: Patient lives at home with her family - Family History Mother Medical History: Diabetes Father Medical History: Heart disease - Social History Smoking Status: Unknown if ever smoked Alcohol use: Yes CD- Drugs: No Caffeine use: Yes Review of Systems 10-point ROS is otherwise unremarkable Gastrointestinal: Abdominal Pain Physical Examination Temp Pulse Resp BP Pulse Ox 97.5 F 75 18 136/67 96 10/14/23 08:00 10/14/23 08:00 10/14/23 08:13 10/14/23 08:00 10/14/23 08:13 General: Alert, In no apparent distress, Oriented x3 HEENT: Atraumatic, Normocephalic Neck: Supple Respiratory: Clear to auscultation bilaterally, Normal air movement Cardiovascular: Regular rate/rhythm Gastrointestinal: Normal bowel sounds Integumentary: No rashes Neurological: Normal speech, Normal tone, Normal affect Laboratory Data - Reviewed Microbiology Data - Reviewed Imagings Data: - Reviewed Conclusions/Impression: Problem List Ascites s/p paracentesis Abdominal Pain Concern for peritoneal carcinomatosis Hyperlipidemia Hypertension Iron Deficiency Anemia - Peritoneal fluid culture 10/13: pending - Peritoneal fluid analysis: elevated WBC, neutrophils. Patient was started on empiric antibiotic-Rocephin. - Currently on Rocephin (started 10/13) - CT abdomen pelvis 10/12: "Nodularity greater omentum may indicate peritoneal carcinomatosis. Small to moderate amount of ascites. 1 centimeter splenic lesion are nonspecific. It is unchanged from the prior exam." - Further labs pending - No leuckotysosis. Afebrile. Recommendations - Continue Rocephin for now - Follow up with peritoneal fluid culture results - Continue supportive care Case discussed with Billy Galvin
--- NOTE | 2023-10-14 10:27 | P.PN ---
Date of Service: 10/14/23 Subjective: Intermittent abdominal pain ~same as yesterday no new / worsening problems Nausea continues, zofran giving some relief. No vomiting No diarrhea, no trouble urinating afebrile ROS: 10 point ROS as noted above, otherwise negative Physical Exam: GEN: Alert, oriented, NAD HEENT: Normal conjunctiva, sclera anicteric CV: Regular rate and rhythm, no edema Pulm: Nonlabored respirations on room air, clear bilaterally, +cough ABD: Hypoactive, small-mod Ascites, abdominal tenderness Neuro: Normal speech, normal affect vitals reviewed Problem List: Intractable abdominal pain likely secondary to Peritoneal carcinomatosis Small-mod Ascites, s/p paracentesis (10/13) IDDM2 Thrombocytosis Severe iron deficiency anemia Hypertension Hyperlipidemia Intractable abdominal pain likely secondary to Peritoneal carcinomatosis Advised to come to ER per Dr. Carvajal recommendations at outpatient follow up. Patient reports worsening abdominal pain, nausea without vomiting. poor intake. Recent admit for ileus vs SBO. had improved with bowel rest, pain medication, medical management. Discharged 10/01/23 on augmentin. Patient reports h/o hysterectomy states "long time ago". Unsure if they took out her ovaries or not. reports being done at [facility] CT abdomen (10/12): Nodularity greater omentum may indicate peritoneal carcinomatosis. small mod ascites. 1cm splenic lesion are nonspecific General surgery - Dr. Carvajal consulted PRN analgesics / antiemetics Continue IV fluids advance diet Small-mod Ascites, s/p paracentesis (10/13) small mod ascites noted on CT abdomen 10/12. s/p paracentesis 10/13. ~100cc of yellow fluid removed follow cytology / cultures Started empiric rocephin 10/13 as a precaution to treat for possible infection given pleural fluid with high white count. suspect WBCs secondary to inflammation, less likely infection continue empiric rocephin (10/13-) afebrile, no leukocytosis ID consulted CRP elevated 10/14 Severe Iron deficiency anemia reported longstanding history and needed IV iron in the past. iron studies from last hospitalization (09/30/23): consistent with severe iron deficiency anemia; iron: 14, %Tsat: 3.4 Monitor H&H. Transfuse for hgb < 7. IDDM2 Accu-Cheks, Insulin sliding scale Thrombocytosis monitor CBC Hypertension Hyperlipidemia confirm home medications, restart as appropriate VTE: ambulatory Code: Full Dispo: Home, 1-2 days Pending further work up, Surgery recommendations suspect several days for cytology final report
[2023-10-14] MEDS: GLUCERNA SHAKE 237 ML CAN PO SCH ×2 (11:47→19:46)
--- NOTE | 2023-10-14 12:53 | P.CNS ---
Date of Consult: 10/13/23 Chief Complaint: Abdominal Pain, ascites, omental inflammation cant r/o malignancy Allergies No Known Allergies Allergy (Unverified 03/31/22 22:21) Home Medications: Amlodipine [Norvasc*] 10 mg DAILY 03/31/22 Hum Insulin NPH/Reg Insulin Hm [Humulin 70-30 Vial] 50 units BID 03/31/22 Lovastatin 20 mg DAILY 03/31/22 Metformin HCl 1,000 mg DAILY 03/31/22 lisinopriL [Lisinopril] 20 mg DAILY 03/31/22 Cetirizine HCl [Zyrtec] 10 PO 09/28/23 Clopidogrel Bisulfate [Plavix] 75 mg PO 09/28/23 Ferrous Sulfate/Folic Acid [Bentivite Bx Tablet] 09/28/23 Amox/Clavulanate [Augmentin 875-125 Tab] 1 tab PO BID 7 Days #14 tab 10/01/23 Codeine/APAP [Tylenol W/Codeine #3 tab] 1 tab PO Q8H PRN #15 tab 10/01/23 Codeine/APAP [Tylenol W/Codeine #3 tab] 1 tab PO Q8HP PRN #15 tab 10/01/23 - Past Medical/Surgical History Diabetic: Yes -: Diabetes type 2insulin-dependent -: Hypertension -: Hyperlipidemia -: Hysterectomy Psychosocial/ Personal History: Patient lives at home with her family - Family History Mother Medical History: Diabetes Father Medical History: Heart disease - Social History Smoking Status: Unknown if ever smoked Alcohol use: Yes CD- Drugs: No Caffeine use: Yes Review of Systems General: Weakness, Malaise Cardiovascular: Unremarkable Gastrointestinal: Nausea, Abdominal Pain Genitourinary: Unremarkable Physical Examination Temp Pulse Resp BP Pulse Ox 97.5 F 75 18 136/67 96 10/14/23 08:00 10/14/23 08:00 10/14/23 08:13 10/14/23 08:00 10/14/23 08:13 General: Alert, In no apparent distress, Oriented x3, Cooperative HEENT: PERRLA Neck: Supple Respiratory: Clear to auscultation bilaterally Cardiovascular: No edema Gastrointestinal: No rebound, No guarding, Tenderness (mild generalized) Integumentary: No rashes, No breakdown, No erythema, No warmth, No cyanosis Neurological: Normal speech Conclusions/Impression: Pt seen recently at hospital. Transferred from [facility] to [facility] and the 2 ct scan findings discussed with patient with work up in progress to r/o malignancy that may include carcomomatosis. Pt state weakness so, she was send to ER with plan to admit and treat her current medical symptoms. We may take care of the opportunity and requuest paracentesis with interventional radiologyst to see if etilology of CT findings and pt symptoms could be obtained before diagnostic Lap as per pt wishes. I discussed case with radiologyst who agree and plans to do procedure today
[2023-10-14] MEDS: NA CHLORIDE 0.9% 1,000 ML IV SCH ×2 (13:47→19:37)
--- NOTE | 2023-10-14 15:01 | PN ---
Date of Progress Note: 10/14/2023 Reason For Service: Abdominal pain, chronic, with nausea and some omental and peritoneal inflammatio n. Etiology of that is unknown. She feels better. She went yesterday for a peritoneal tapping eusebio camilo to see if the fluid collected may give us at least unto where this inflammation etiology is from, either inflammatory or neoplastic. She feels better, less nausea. Physical Examination: Chest: Clear. Abdomen: Soft and depressible. Extremities: Good capillary refill. Plan: Follow up cultures. Follow up cytology from the peritoneal tapping. She knows she has an opt ion of diagnostic lap, although she does not want to use that option at this moment. DANIEL/MICKY Voice ID: [id number] Report ID: [id number]
[2023-10-15] MEDS: ONDANSETRON 4 MG/2 ML VIAL IV PRN (04:46)
[2023-10-15] MEDS: MORPHINE 2 MG/ML SYR IV PRN ×3 (04:46→20:54)
[2023-10-15 05:07] LABS: Hematocrit 26.9 % (36.0-45.0); MCV 72.5 fL (80-100); MPV 7.2 fL (7.6-11.3); Platelets 663 thou/uL (152-406); RBC Red Blood Cell Count 3.71 M/uL (3.86-4.86)
[2023-10-15 05:19] LABS: Albumin 2.1 g/dL (3.4-5.0); Bilirubin Total 0.2 mg/dL (0.2-1.0); C-Reactive Protein 52.8 mg/L (<3.00); Magnesium 1.3 mg/dL (1.6-2.4); Potassium 3.7 mEq/L (3.5-5.1); Protein, Total 6.3 g/dL (6.4-8.2)
[2023-10-15] MEDS: CEFTRIAXONE 2,000 MG in NA CHLORIDE 0.9% 100 ML IV SCH (07:23)
[2023-10-15] MEDS: GLUCERNA SHAKE 237 ML CAN PO SCH ×2 (07:27→20:52)
[2023-10-15] MEDS: INSULIN REGULAR (HUMAN) 100 UNIT/ML SQ SCH ×4 (07:30→20:52)
[2023-10-15] MEDS: NA CHLORIDE 0.9% 1,000 ML IV SCH ×3 (08:00→18:00)
--- NOTE | 2023-10-15 10:35 | P.PN ---
Date of Service: 10/15/23 Subjective: abdominal pain ~same as yesterday. pain comes and goes Reports hysterectomy between late -early no acute events overnight minimal appetite afebrile ROS: 10 point ROS as noted above, otherwise negative Physical Exam: GEN: Alert, oriented, NAD HEENT: Normal conjunctiva, sclera anicteric CV: Regular rate and rhythm, no edema Pulm: Nonlabored respirations on room air, clear bilaterally, +cough ABD: Hypoactive, small-mod Ascites, abdominal tenderness Neuro: Normal speech, normal affect vitals reviewed Problem List: Intractable abdominal pain likely secondary to Peritoneal carcinomatosis Small-mod Ascites, s/p paracentesis (10/13) IDDM2 Thrombocytosis Severe iron deficiency anemia Hypertension Hyperlipidemia Intractable abdominal pain likely secondary to Peritoneal carcinomatosis Advised to come to ER per Dr. Carvajal recommendations at outpatient follow up. Patient reports worsening abdominal pain, nausea without vomiting. poor intake. Recent admit for ileus vs SBO. had improved with bowel rest, pain medication, medical management. Discharged 10/01/23 on augmentin. Patient reports h/o hysterectomy states "long time ago". Unsure if they took out her ovaries or not. reports being done at [facility] CT abdomen (10/12): Nodularity greater omentum may indicate peritoneal carcinomatosis. small mod ascites. 1cm splenic lesion are nonspecific General surgery - Dr. Carvajal consulted PRN analgesics / antiemetics Continue IV fluids advance diet Small-mod Ascites, s/p paracentesis (10/13) small mod ascites noted on CT abdomen 10/12. s/p paracentesis 10/13. ~100cc of yellow fluid removed follow cytology / cultures Started empiric rocephin 10/13 as a precaution to treat for possible infection given pleural fluid with high white count. suspect WBCs secondary to inflammation / malignancy, less likely infection. rocephin dc'd 10/15 (10/13-10/15) prelim cytology report concerning for malignancy. Final report pending. afebrile, no leukocytosis ID following. Thrombocytosis monitor CBC Severe Iron deficiency anemia reported longstanding history and needed IV iron in the past. iron studies from last hospitalization (09/30/23): consistent with severe iron deficiency anemia; iron: 14, %Tsat: 3.4 Monitor H&H. Transfuse for hgb < 7. IDDM2 Accu-Cheks, Insulin sliding scale Hypertension Hyperlipidemia confirm home medications, restart as appropriate VTE: ambulatory Code: Full Dispo: Home, 1-2 days Pending further work up, Surgery recommendations suspect several days for cytology final report
--- NOTE | 2023-10-15 15:58 | PN ---
Subjective: Patient with abdominal pain, possible carcinomatosis, had an ascites drained 48 hours ag o. Pathology still pending, although shows possible suspicious for malignancy. Objective: Chest: Clear. Abdomen: Soft and depressible. No guarding or rebound. Mild generalized tenderness, but no guardin g or rebound. No peritoneal signs. Extremities: Good capillary refill. Blood Work: Reviewed with WBC count of 8.0. Plan: Continue follow up on the cytology of this aspiration. Hopefully that gave us a lead on which organ may be the etiology, which is suspected to be malignancy. If the patient gets discharged, she was advised to follow up in our office. DANIEL/MICKY Voice ID: [id number] Report ID: [id number]
[2023-10-15] MEDS: HYDROCODONE/APAP 5/325 MG TAB PO PRN (17:58)
[2023-10-16] MEDS: NA CHLORIDE 0.9% 1,000 ML IV SCH ×3 (03:58→18:48)
[2023-10-16] MEDS: HYDROCODONE/APAP 5/325 MG TAB PO PRN ×3 (03:59→20:33)
[2023-10-16 04:01] LABS: Hematocrit 28.1 % (36.0-45.0); MCV 72.5 fL (80-100); Platelets 690 thou/uL (152-406); RBC Red Blood Cell Count 3.87 M/uL (3.86-4.86)
[2023-10-16 04:36] LABS: Bilirubin Total 0.2 mg/dL (0.2-1.0); C-Reactive Protein 51.7 mg/L (<3.00); Potassium 3.6 mEq/L (3.5-5.1); Protein, Total 6.3 g/dL (6.4-8.2)
[2023-10-16 06:38] LABS: Magnesium 1.3 mg/dL (1.6-2.4)
[2023-10-16] MEDS: INSULIN REGULAR (HUMAN) 100 UNIT/ML SQ SCH ×4 (07:30→20:34)
[2023-10-16] MEDS: MORPHINE 2 MG/ML SYR IV PRN ×2 (08:44→16:26)
[2023-10-16] MEDS ORDERED: Magnesium Sulfate 2gm IVPB 2 G/50 ML BAG IV ONE (09:00)
[2023-10-16] MEDS ORDERED: POTASSIUM CL SA 10 MEQ TAB PO ONE (09:00)
[2023-10-16] MEDS: GLUCERNA SHAKE 237 ML CAN PO SCH ×2 (09:44→20:34)
[2023-10-16] MEDS ORDERED: HYDROCODONE/APAP 5/325 MG TAB PO PRN (13:01)
--- NOTE | 2023-10-16 13:02 | P.PN ---
Subjective Date of Service: 10/17/23 Chief Complaint: Abdominal Pain Patient continues to complain of abdominal pain requiring pain medications centesis fluid is suggestive of carcinomatosis Review of Systems Unremarkable Physical Examination - Vital Signs Temperature: 98.6 F Blood Pressure: 136/75 Pulse: 71 Respirations: 18 Pulse Ox (%): 95 - Physical Exam General: Alert, Oriented x3 Respiratory: Clear to auscultation bilaterally Cardiovascular: No edema, Normal S1 S2 Gastrointestinal: Tenderness (Has mild lower abdominal tenderness) Assessment And Plan - Current Problems (Diagnosis) (1) Peritoneal carcinomatosis Current Visit: Yes Status: Acute Plan: diagnosis is consistent with peritoneal pneumatosis cells found awaiting identification ambulating still complaining of abdominal pain eating and drinking much discharge 2 days with follow-up with oncology in stable
[2023-10-16] MEDS ORDERED: MAGNESIUM SULFATE 1 gm IVPB 1 GM/100 ML BAG IV ONE (16:19)
[2023-10-17] MEDS: MORPHINE 2 MG/ML SYR IV PRN ×3 (01:02→20:36)
[2023-10-17] MEDS: HYDROCODONE/APAP 5/325 MG TAB PO PRN ×2 (05:20→16:38)
[2023-10-17] MEDS: ONDANSETRON 4 MG/2 ML VIAL IV PRN ×3 (05:21→20:37)
[2023-10-17 06:44] LABS: Magnesium 1.8 mg/dL (1.6-2.4); Potassium 3.7 mEq/L (3.5-5.1)
[2023-10-17] MEDS: INSULIN REGULAR (HUMAN) 100 UNIT/ML SQ SCH ×4 (07:30→20:37)
[2023-10-17] MEDS: GLUCERNA SHAKE 237 ML CAN PO SCH ×2 (09:00→20:36)
[2023-10-17] MEDS: NA CHLORIDE 0.9% 1,000 ML IV SCH ×2 (10:00)
--- NOTE | 2023-10-17 10:20 | P.PN ---
Subjective Date of Service: 10/17/23 Chief Complaint: Abdominal Pain Patient still continues to experience intractable abdominal pain ambulating and drinking very well of constipation Review of Systems General: Weakness Gastrointestinal: Abdominal Pain Physical Examination - Vital Signs Temperature: 96.9 F Blood Pressure: 177/84 Pulse: 83 Respirations: 18 Pulse Ox (%): 96 - Physical Exam General: Alert, Oriented x3 Respiratory: Clear to auscultation bilaterally Gastrointestinal: Tenderness (Abdominal tenderness) Assessment And Plan - Current Problems (Diagnosis) (1) Peritoneal carcinomatosis Current Visit: Yes Status: Acute Plan: Patient has peritoneal carcinomatosis awaiting final ID complaining of intractable abdominal pain and now complaining of constipation will DC IV fluids encourage fluid and intake possible discharge home tomorrow on pain medications
[2023-10-17] MEDS ORDERED: LACTULOSE 20 GM/30 ML UCUP PO ONE (10:45)
--- NOTE | 2023-10-17 13:41 | PN ---
Subjective: Patient lying in bed. Continues to have some abdominal discomfort. No other complaints of nausea, vomiting, diarrhea, or constipation. Objective: Vital Signs: Temperature 98.6, pulse 71, respiration 18, blood pressure 136/75. Lungs: Basal crackles. Heart: S1, S2. Regular. Abdomen: Lower quadrant tenderness noted. Extremities: No edema. Laboratory Data: Shows WBC 9.3, hemoglobin 9, platelets 690. Chemistry shows BUN of 4, creatinine 0 .39, glucose 157. Micro data peritoneal blood cultures are negative to date. Patient is currently o n no antibiotic. Assessment And Plan: Diabetes mellitus, with ascites, abdominal discomfort. Peritoneal fluid cultur es negative to date. Patient with no leukocytosis. Anemia of chronic disease. We will continue to monitor. No other recommendation at this time. NF/MODL Voice ID: [id number] Report ID: [id number]
[2023-10-17 23:19] VITALS: O2SAT 96
[2023-10-18] MEDS: HYDROCODONE/APAP 5/325 MG TAB PO PRN ×2 (05:44→17:17)
[2023-10-18] MEDS: INSULIN REGULAR (HUMAN) 100 UNIT/ML SQ SCH ×2 (07:30→12:00)
[2023-10-18] MEDS: GLUCERNA SHAKE 237 ML CAN PO SCH (08:07)
[2023-10-18] MEDS: MORPHINE 2 MG/ML SYR IV PRN (11:59)
[2023-10-18 12:32] VITALS: BP 152/82; TEMP 97.5
--- NOTE | 2023-10-18 15:15 | P.DS ---
Admission Date: 10/12/23 Discharge Date: 10/18/23 Disposition: ROUTINE DISCHARGE Discharge Condition: FAIR Reason for Admission: Abdominal Pain Brief History of Present Illness: 68-year-old -[place] woman with past medical history of hypertension, hyperlipidemia, diabetes, history of cholecystectomy who was brought to ER with abdominal pain and dehydratio. Patient was recently admitted for similar complaints, diagnosed with a partial small bowel obstruction / ileus and medically managed. Patient was seeing Dr. Carvajal, surgery as an outpatient and recommended she to come to the ER for evaluation of persistent abdominal pain. Symptoms associated with some nausea but no vomiting. Complains of abdominal distention as well. Patient reported poor intake. Patient was assessed in the ER and was admitted for further management. Hospital Course: Diagnosis Intractable abdominal pain likely secondary to Peritoneal carcinomatosis Small-mod Ascites, s/p paracentesis (10/13) IDDM2 Thrombocytosis Severe iron deficiency anemia Hypertension Hyperlipidemia Patient admitted to the medical floor and the following medical problems addressed: Intractable abdominal pain likely secondary to Peritoneal carcinomatosis. Patient reports h/o hysterectomy states "long time ago". Unsure if they took out her ovaries or not. reports being done at [facility] CT abdomen (10/12): Nodularity greater omentum may indicate peritoneal carcinomatosis. small mod ascites. 1cm splenic lesion are nonspecific General surgery - Dr. Carvajal consulted PRN analgesics / antiemetics Diet advanced to solids but patient was tolerating oral liquid diet. Small-mod Ascites, s/p paracentesis (10/13) small mod ascites noted on CT abdomen 10/12. s/p paracentesis 10/13. ~100cc of yellow fluid removed Cytology: Carcinomatosis. Final report regarding source and type of malignancy pending. Thrombocytosis Severe Iron deficiency anemia reported longstanding history and needed IV iron in the past. iron studies from last hospitalization (09/30/23): consistent with severe iron deficiency anemia; iron: 14, %Tsat: 3.4 Follwo up as outpatient. IDDM2 Managed with Accu-Cheks, Insulin sliding scale. Held long acting Insulin due to decreased oral intake. Vital Signs/Physical Exam: Temp Pulse Resp BP Pulse Ox 97.5 F 97 H 18 152/82 H 96 10/18/23 12:00 10/18/23 12:00 10/18/23 12:00 10/18/23 12:00 10/18/23 12:00 General: Alert, In no apparent distress HEENT: Mucous membr. moist/pink Neck: Supple, JVD not distended Respiratory: Clear to auscultation bilaterally, Normal air movement Cardiovascular: No edema, Regular rate/rhythm, Normal S1 S2 Gastrointestinal: Normal bowel sounds, Soft and benign, Non-distended Musculoskeletal: No swelling, No tenderness Integumentary: No rashes, No cyanosis Neurological: Normal strength at 5/5 x4 extr Laboratory Data at Discharge: WBC 9.30 thou/uL (4.3-10.9) 10/16/23 03:40 Hgb 9.0 g/dL (12.0-15.0) L 10/16/23 03:40 Hct 28.1 % (36.0-45.0) L 10/16/23 03:40 Plt Count 690 thou/uL (152-406) H 10/16/23 03:40 Sodium 135 mEq/L (136-145) L 10/17/23 06:00 Potassium 3.7 mEq/L (3.5-5.1) 10/17/23 06:00 BUN 4 mg/dL (7-18) L 10/17/23 06:00 Creatinine 0.39 mg/dL (0.55-1.02) L 10/17/23 06:00 Glucose 170 mg/dL (74-106) H 10/17/23 06:00 Magnesium 1.8 mg/dL (1.6-2.4) 10/17/23 06:00 Total Bilirubin 0.2 mg/dL (0.2-1.0) 10/16/23 03:40 AST 15 U/L (15-37) 10/16/23 03:40 ALT 13 U/L (13-56) 10/16/23 03:40 Alkaline Phosphatase 44 U/L (45-117) L 10/16/23 03:40 Lipase 44 U/L (13-75) 10/12/23 17:20 Home Medications: Amlodipine [Norvasc*] 10 mg DAILY 03/31/22 Hum Insulin NPH/Reg Insulin Hm [Humulin 70-30 Vial] 50 units BID 03/31/22 Lovastatin 20 mg DAILY 03/31/22 Metformin HCl 1,000 mg DAILY 03/31/22 lisinopriL [Lisinopril] 20 mg DAILY 03/31/22 Cetirizine HCl [Zyrtec] 10 PO 09/28/23 Clopidogrel Bisulfate [Plavix] 75 mg PO 09/28/23 Ferrous Sulfate/Folic Acid [Bentivite Bx Tablet] 09/28/23 Amox/Clavulanate [Augmentin 875-125 Tab] 1 tab PO BID 7 Days #14 tab 10/01/23 Codeine/APAP [Tylenol W/Codeine #3 tab] 1 tab PO Q8H PRN #15 tab 10/01/23 Codeine/APAP [Tylenol W/Codeine #3 tab] 1 tab PO Q8HP PRN #15 tab 10/01/23 Glucerna Shake [Glucerna*] 237 ml PO BID #30 can 10/18/23 Hydrocodone 5/APAP 325 [[employer] 5/325*] 1 tab PO Q4H PRN #20 tab 10/18/23 Insulin -Regular Human [Novolin -R*] See Protocol SQ ACHS #15 ml 10/18/23 Ondansetron [Zofran] 4 mg PO Q6H PRN #30 tab 10/18/23 Polyethylene Glycol 3350 [Miralax] 17 gm PO DAILY PRN #30 packet 10/18/23 Senosides [Senokot] 2 tab PO BID #120 tab 10/18/23 New Medications: Glucerna Shake [Glucerna*] 237 ml PO BID #30 can Polyethylene Glycol 3350 [Miralax] 17 gm PO DAILY PRN #30 packet PRN Reason: Constipation Hydrocodone 5/APAP 325 [[employer] 5/325*] 1 tab PO Q4H PRN #20 tab PRN Reason: Pain Scale 5-7 (Moderate) Insulin -Regular Human [Novolin -R*] See Protocol SQ ACHS #15 ml Senosides [Senokot] 2 tab PO BID #120 tab Ondansetron [Zofran] 4 mg PO Q6H PRN #30 tab PRN Reason: Nausea / Vomiting Physician Discharge Instructions: Advance from liquid diet to soft diet as tolerated. It is important you follow-up with Dr. Ni regarding your final biopsy results and for further treatment. Diet: ADA Activity: Ad azeb Followup: OOT,OOT [Primary Care Provider] - 1-2 Weeks Ramona Valenzuela MD [ACTIVE - CAN ADMIT] - 1-2 Weeks Time spent managing pt's care (in minutes): 33
[2023-10-21 05:52] LABS: TOTAL PROTEIN,PERITONEAL FLUID 5.3 g/dL
== END 2023-10-18 18:17 | disposition home or self-care (01) | DRG 375 ==
LOC: ER 15:11 → ERHOLD 20:00 → 4TH 10-13 16:48
PROVIDERS: ADMIT Family Medicine; ATTEND Internal Medicine
PROC: 0W9G3ZX Drainage of Peritoneal Cavity, Percutaneous Approach, Diagnostic (ICD-10-PCS; principal; 2023-10-13)
DX: C78.6 Secondary malignant neoplasm of retroperitoneum and peritoneum (principal); E87.1 Hypo-osmolality and hyponatremia; K56.7 Ileus, unspecified; R18.8 Other ascites; E11.9 Type 2 diabetes mellitus without complications; D50.9 Iron deficiency anemia, unspecified; E86.0 Dehydration; Z79.4 Long term (current) use of insulin; I10 Essential (primary) hypertension; D75.839 Thrombocytosis, unspecified; E87.5 Hyperkalemia; E83.52 Hypercalcemia; R63.0 Anorexia; Z68.25 Body mass index [BMI] 25.0-25.9, adult; N28.9 Disorder of kidney and ureter, unspecified
CPT/HCPCS: 36415; 49083; 74177; 80048; 80053; 82042; 82150; 82945; 82947; 83615; 83690; 83735; 84157; 85025; 85027; 86140; 86304; 87070; 88108; 88305; 89050; 96374; 96375; 99285; J0696; J1650; J1815; J2270; J2405; J3475; J7030; Q9967

== ENCOUNTER 2023-11-08 14:53 | Inpatient (IN) | payer OTHER ==
--- OUTSIDE RECORDS SUMMARY | 2023-11-08 14:59 | XMS REPORT | Continuity of Care Document ---
Author Name Unknown Address [address] [facility] [address] [place] [id number] [facility] thconnect Address [address] [facility] [address] [place] [address] Care Team Providers Care Fire Boss Name Role Phone Jaida Attending Clinician Unavailable YADIEL LAWTON Attending Clinician Unavailable RITCHIE Attending Clinician Unavailable Carlotta Ruiz Attending Clinician [phone] Attending Clinician Unavailable Meryl Watson Attending Clinician [phone] Jaida Admitting Clinician Unavailable RITCHIE Admitting Clinician Unavailable KO Admitting Clinician Unavailable Payers Payer Name Policy Type Policy Number Effective Date Expirati on Date Source [employer] (MEDICARE REPLACEMENT PPO) [id number] 2019 00:00:00 [place] [employer] [id number] 2019 00:00:00 Problems Condition Name Condition Details Condition Category Status Onset Date Resolution Date Last Treatment Date Treating Clinician Comments Source Right lower quadrant pain Right Lower Quadrant Pain Problem Active 2022-10 2-05 00:00: 00 [facility] Glaucoma of right eye Glaucoma of Right Eye Problem Active 2022-10 0- 00:00: 00 [facility] Upper respirator y infection Upper Respirator y Infection Problem Active 12-15 00:00: 00 [facility] Chronic back pain Chronic Back Pain Problem Active 11-02 00:00: 00 [facility] Generalize d acute body pains Generalize d Acute Body Pains Problem Active 11-02 00:00: 00 [facility] Otalgia of left ear Otalgia of Left Ear Problem Active 2021-10 1-16 00:00: 00 [facility] Streptococ eduard sore throat Streptococ eduard Sore Throat Problem Active 2021-10 0-03 00:00: 00 [facility] Acute sinusitis Acute Sinusitis Problem Active 2021-10 0-03 00:00: 00 [facility] Pain in throat Pain in Throat Problem Active 2021-10 0-03 00:00: 00 [facility] Cough Cough Problem Active 2021-10 0-03 00:00: 00 [facility] Hypothyroi dism Hypothyroi dism Problem Active 2020-10 0 00:00: 00 [facility] Nasal congestion Nasal Congestion Problem Active 2020-10 0 00:00: 00 [facility] Iron deficiency anemia Iron Deficiency Anemia Problem Active 04-22 00:00: 00 [facility] Ultrasound scan abnormal Ultrasound Scan Abnormal Problem Active 04-22 00:00: 00 [facility] Left side sciatica Left Side Sciatica Problem Active 03-25 00:00: 00 [facility] Type 2 diabetes mellitus Type 2 Diabetes Mellitus Problem Active 03-01 00:00: 00 [facility] Hyperlipid emia Hyperlipid emia Problem Active 03-01 00:00: 00 [facility] Essential hypertensi on Essential Hypertensi on Problem Active 03-01 00:00: 00 [facility] Social History Smoking Status Start Date Stop Date Source Former Smoker [facility] Medications Ordered Medication Name Filled Medication Name [...] injectionT karen 125 mg by injection route. [facility] ceftriaxone 1 gram solution for injectionTa ke 1 g by injection route. ceftriaxone 1 gram solution for injectionTa ke 1 g by injection route. 05-18 09:45: 00 No ceftriaxon e 1 gram solution for injectionT karen 1 g by injection route. [facility] lidocaine (PF) 10 mg/mL (1 %) injection solutionTak e 2.1 mL by injection route. lidocaine (PF) 10 mg/mL (1 %) injection solutionTak e 2.1 mL by injection route. 05-18 09:45: 00 No lidocaine (PF) 10 mg/mL (1 %) injection solutionTa ke 2.1 mL by injection route. [facility] ceftriaxone 1 gram solution for injectionTa ke 1 g by injection route. ceftriaxone 1 gram solution for injectionTa ke 1 g by injection route. 05-18 09:45: 00 No ceftriaxon e 1 gram solution for injectionT karen 1 g by injection route. [facility] lidocaine (PF) 10 mg/mL (1 %) injection solutionTak e 2.1 mL by injection route. lidocaine (PF) 10 mg/mL (1 %) injection solutionTak e 2.1 mL by injection route. 05-18 09:45: 00 No lidocaine (PF) 10 mg/mL (1 %) injection solutionTa ke 2.1 mL by injection route. [facility] Kenalog 40 mg/mL suspension for injectionTa ke 80 mg by injection route. Kenalog 40 mg/mL suspension for injectionTa ke 80 mg by injection route. 01-31 10:20: 00 No Kenalog 40 mg/mL suspension for injectionT karen 80 mg by injection route. [facility] lidocaine HCl 10 mg/mL (1 %) injection solutionTak e 2 mL by injection route. lidocaine HCl 10 mg/mL (1 %) injection solutionTak e 2 mL by injection route. 11-17 12:59: 00 No lidocaine HCl 10 mg/mL (1 %) injection solutionTa ke 2 mL by injection route. [facility] lidocaine HCl 10 mg/mL (1 %) injection solutionTak e 2 mL by injection route. lidocaine HCl 10 mg/mL (1 %) injection solutionTak e 2 mL by injection route. 11-17 12:59: 00 No lidocaine HCl 10 mg/mL (1 %) injection solutionTa ke 2 mL by injection route. [facility] ceftriaxone 1 gram solution for injectionTa ke 1 g by injection route for 1 day. ceftriaxone 1 gram solution for injectionTa ke 1 g by injection route for 1 day. 11-17 12:00: 00 No ceftriaxon e 1 gram solution for injectionT karen 1 g by injection route for 1 day. [facility] ceftriaxone 1 gram solution for injectionTa ke 1 g by injection route for 1 day. ceftriaxone 1 gram solution for injectionTa ke 1 g by injection route for 1 day. 11-17 12:00: 00 No ceftriaxon e 1 gram solution for injectionT karen 1 g by injection route for 1 day. [facility] Kenalog 40 mg/mL suspension for injectionTa ke 60 mg by injection route as directed. Kenalog 40 mg/mL suspension for injectionTa ke 60 mg by injection route as directed. 11-02 16:40: 00 No Kenalog 40 mg/mL suspension for injectionT karen 60 mg by injection route as directed. [facility] Kenalog 40 mg/mL suspension for injectionTa ke 40 mg by injection route as directed for 1 day. Kenalog 40 mg/mL suspension for injectionTa ke 40 mg by injection route as directed for 1 day. 2021-10 15:32: 00 No Kenalog 40 mg/mL suspension for injectionT karen 40 mg by injection route as directed for 1 day. [facility] Kenalog 40 mg/mL suspension for injectionTa ke 40 mg by injection route as directed for 1 day. Kenalog 40 mg/mL suspension for injectionTa ke 40 mg by injection route as directed for 1 day. 2022-1 0-03 15:32: 00 No Kenalog 40 mg/mL suspension for injectionT karen 40 mg by injection route as directed for 1 day. [facility] Kenalog 40 mg/mL suspension for injection Take 60 mg by injection route as directed for 1 day. Kenalog 40 mg/mL suspension for injection Take 60 mg by injection route as directed for 1 day. 2020-10 0 00:00: 00 No 60mg Kenalog 40 mg/mL suspension for injection Take 60 mg by injection route as directed for 1 day. [facility] Kenalog 40 mg/mL suspension for injectionTa ke 60 mg by injection route as directed for 1 day. Kenalog 40 mg/mL suspension for injectionTa ke 60 mg by injection route as directed for 1 day. 6 10:05: 00 No Kenalog 40 mg/mL suspension for injectionT karen 60 mg by injection route as directed for 1 day. [facility] Solu-Medrol (PF) 125 mg/2 mL solution for injectionTa ke 125 mg by injection route as directed for 1 day. Solu-Medrol (PF) 125 mg/2 mL solution for injectionTa ke 125 mg by injection route as directed for 1 day. 12-10 11:30: 00 No Solu-Medro l (PF) 125 mg/2 mL solution for injectionT karen 125 mg by injection route as directed for 1 day. [facility] ceftriaxone 1 gram solution for injectionTa ke 1 g by injection route as directed for 1 day. ceftriaxone 1 gram solution for injectionTa ke 1 g by injection route as directed for 1 day. 12-10 11:30: 00 No ceftriaxon e 1 gram solution for injectionT karen 1 g by injection route as directed for 1 day. [facility] lidocaine (PF) 10 mg/mL (1 %) injection solutionTak e 2.1 mL by injection route as directed for 1 day. lidocaine (PF) 10 mg/mL (1 %) injection solutionTak e 2.1 mL by injection route as directed for 1 day. 12-10 11:30: 00 No lidocaine (PF) 10 mg/mL (1 %) injection solutionTa ke 2.1 mL by injection route as directed for 1 day. [facility] cephalexin 750 mg capsule Take 1 capsule twice a day by oral route as directed for 7 days. cephalexin 750 mg capsule Take 1 capsule twice a day by oral route as directed for 7 days. 12-10 00:00: 00 No 1capsul e(s) BID cephalexin 750 mg capsule Take 1 capsule twice a day by oral route as directed for 7 days. [facility] Keflex 500 mg capsule Take 1 capsule every 8 hours by oral route as directed for 10 days. Keflex 500 mg capsule Take 1 capsule every 8 hours by oral route as directed for 10 days. 12-10 00:00: 00 No 1capsul e(s) Q8H Keflex 500 mg capsule Take 1 capsule every 8 hours by oral route as directed for 10 days. [facility] promethazin e-DM 6.25 mg-15 mg/5 mL oral [...] taking this medication . Duration: 10 days [facility] amlodipine 10 mg tablet TAKE 1 TABLET BY MOUTH ONCE DAILY DIRECTED FOR 90 DAYS amlodipine 10 mg tablet TAKE 1 TABLET BY MOUTH ONCE DAILY DIRECTED FOR 90 DAYS No amlodipine 10 mg tablet TAKE 1 TABLET BY MOUTH ONCE DAILY DIRECTED FOR 90 DAYS [facility] amoxicillin 875 mg tablet Take 1 tablet every 12 hours by oral route as directed for 10 days. amoxicillin 875 mg tablet Take 1 tablet every 12 hours by oral route as directed for 10 days. No 1 Q12H amoxicilli n 875 mg tablet Take 1 tablet every 12 hours by oral route as directed for 10 days. [facility] bromphenira mine-pseudo ephedrine-D M 2 mg-30 mg-10 [...] MOUTH TWICE DAILY NEEDED FOR 10 DAYS [facility] Humulin R Regular U-100 Insulin 100 unit/mL [...] injection route at bedtime for 30 days. [facility] ibuprofen 800 mg tablet Take 1 tablet 3 times a day by oral route as needed for 30 days. ibuprofen 800 mg tablet Take 1 tablet 3 times a day by oral route as needed for 30 days. No 1 TID ibuprofen 800 mg tablet Take 1 tablet 3 times a day by oral route as needed for 30 days. [facility] insulin aspar prt-insulin aspart 100 unit/mL (70-30) [...] us route as directed for 30 days. [facility] Kenalog 40 mg/mL suspension for injection Take 60 mg by injection route as directed for 1 day. Kenalog 40 mg/mL suspension for injection Take 60 mg by injection route as directed for 1 day. No 60mg Kenalog 40 mg/mL suspension for injection Take 60 mg by injection route as directed for 1 day. [facility] lovastatin 20 mg tablet TAKE 1 TABLET BY MOUTH ONCE DAILY AT BEDTIME lovastatin 20 mg tablet TAKE 1 TABLET BY MOUTH ONCE DAILY AT BEDTIME No lovastatin 20 mg tablet TAKE 1 TABLET BY MOUTH ONCE DAILY AT BEDTIME [facility] metformin 1,000 mg tablet TAKE 1 TABLET BY MOUTH TWICE DAILY BEFORE MEAL(S) metformin 1,000 mg tablet TAKE 1 TABLET BY MOUTH TWICE DAILY BEFORE MEAL(S) No metformin 1,000 mg tablet TAKE 1 TABLET BY MOUTH TWICE DAILY BEFORE MEAL(S) [facility] mometasone 50 mcg/actuati on nasal spray USE 2 SPRAY(S) IN EACH NOSTRIL ONCE DAILY DIRECTED FOR 14 DAYS mometasone 50 mcg/actuati on nasal spray USE 2 SPRAY(S) IN EACH NOSTRIL ONCE DAILY DIRECTED FOR 14 DAYS No mometasone 50 mcg/actuat ion nasal spray USE 2 SPRAY(S) IN EACH NOSTRIL ONCE DAILY DIRECTED FOR 14 DAYS [facility] montelukast 10 mg tablet TAKE 1 TABLET BY MOUTH ONCE DAILY DIRECTED. montelukast 10 mg tablet TAKE 1 TABLET BY MOUTH ONCE DAILY DIRECTED. No montelukas t 10 mg tablet TAKE 1 TABLET BY MOUTH ONCE DAILY DIRECTED. [facility] promethazin e-DM 6.25 mg-15 mg/5 mL oral syrup TAKE 5 ML BY MOUTH ONCE DAILY AT BEDTIME FOR 10 DAYS promethazin e-DM 6.25 mg-15 mg/5 mL oral syrup TAKE 5 ML BY MOUTH ONCE DAILY AT BEDTIME FOR 10 DAYS No promethazi ne-DM 6.25 mg-15 mg/5 mL oral syrup TAKE 5 ML BY MOUTH ONCE DAILY AT BEDTIME FOR 10 DAYS [facility] amlodipine 10 mg tablet TAKE 1 TABLET BY MOUTH ONCE DAILY DIRECTED FOR 90 DAYS amlodipine 10 mg tablet TAKE 1 TABLET BY MOUTH ONCE DAILY DIRECTED FOR 90 DAYS No amlodipine 10 mg tablet TAKE 1 TABLET BY MOUTH ONCE DAILY DIRECTED FOR 90 DAYS [facility] amoxicillin 875 mg tablet TAKE 1 TABLET BY MOUTH EVERY 12 HOURS DIRECTED FOR 10 DAYS amoxicillin 875 mg tablet TAKE 1 TABLET BY MOUTH EVERY 12 HOURS DIRECTED FOR 10 DAYS No amoxicilli n 875 mg tablet TAKE 1 TABLET BY MOUTH EVERY 12 HOURS DIRECTED FOR 10 DAYS [facility] bromphenira mine-pseudo ephedrine-D M 2 mg-30 mg-10 [...] MOUTH TWICE DAILY NEEDED FOR 10 DAYS [facility] Humulin R Regular U-100 Insulin 100 unit/mL [...] injection route at bedtime for 30 days. [facility] ibuprofen 800 mg tablet TAKE 1 TABLET BY MOUTH THREE TIMES DAILY NEEDED ibuprofen 800 mg tablet TAKE 1 TABLET BY MOUTH THREE TIMES DAILY NEEDED No ibuprofen 800 mg tablet TAKE 1 TABLET BY MOUTH THREE TIMES DAILY NEEDED [facility] insulin aspar prt-insulin aspart 100 unit/mL (70-30) [...] us route as directed for 30 days. [facility] Kenalog 40 mg/mL suspension for injection Take 60 mg by injection route as directed for 1 day. Kenalog 40 mg/mL suspension for injection Take 60 mg by injection route as directed for 1 day. No 60mg Kenalog 40 mg/mL suspension for injection Take 60 mg by injection route as directed for 1 day. [facility] lovastatin 20 mg tablet TAKE 1 TABLET BY MOUTH ONCE DAILY AT BEDTIME lovastatin 20 mg tablet TAKE 1 TABLET BY MOUTH ONCE DAILY AT BEDTIME No lovastatin 20 mg tablet TAKE 1 TABLET BY MOUTH ONCE DAILY AT BEDTIME [facility] metformin 1,000 mg tablet TAKE 1 TABLET BY MOUTH TWICE DAILY BEFORE MEAL(S) metformin 1,000 mg tablet TAKE 1 TABLET BY MOUTH TWICE DAILY BEFORE MEAL(S) No metformin 1,000 mg tablet TAKE 1 TABLET BY MOUTH TWICE DAILY BEFORE MEAL(S) [facility] mometasone 50 mcg/actuati on nasal spray USE 2 SPRAY(S) IN EACH NOSTRIL ONCE DAILY DIRECTED FOR 14 DAYS mometasone 50 mcg/actuati on nasal spray USE 2 SPRAY(S) IN EACH NOSTRIL ONCE DAILY DIRECTED FOR 14 DAYS No mometasone 50 mcg/actuat ion nasal spray USE 2 SPRAY(S) IN EACH NOSTRIL ONCE DAILY DIRECTED FOR 14 DAYS [facility] montelukast 10 mg tablet TAKE 1 TABLET BY MOUTH ONCE DAILY DIRECTED montelukast 10 mg tablet TAKE 1 TABLET BY MOUTH ONCE DAILY DIRECTED No montelukas t 10 mg tablet TAKE 1 TABLET BY MOUTH ONCE DAILY DIRECTED [facility] promethazin e-DM 6.25 mg-15 mg/5 mL oral syrup TAKE 5 ML BY MOUTH ONCE DAILY AT BEDTIME FOR 10 DAYS promethazin e-DM 6.25 mg-15 mg/5 mL oral syrup TAKE 5 ML BY MOUTH ONCE DAILY AT BEDTIME FOR 10 DAYS No promethazi ne-DM 6.25 mg-15 mg/5 mL oral syrup TAKE 5 ML BY MOUTH ONCE DAILY AT BEDTIME FOR 10 DAYS [facility] amlodipine 10 mg tablet TAKE 1 TABLET BY MOUTH ONCE DAILY DIRECTED FOR 90 DAYS amlodipine 10 mg tablet TAKE 1 TABLET BY MOUTH ONCE DAILY DIRECTED FOR 90 DAYS No amlodipine 10 mg tablet TAKE 1 TABLET BY MOUTH ONCE DAILY DIRECTED FOR 90 DAYS [facility] amoxicillin 875 mg tablet TAKE 1 TABLET BY MOUTH EVERY 12 HOURS DIRECTED FOR 10 DAYS amoxicillin 875 mg tablet TAKE 1 TABLET BY MOUTH EVERY 12 HOURS DIRECTED FOR 10 DAYS No amoxicilli n 875 mg tablet TAKE 1 TABLET BY MOUTH EVERY 12 HOURS DIRECTED FOR 10 DAYS [facility] bromphenira mine-pseudo ephedrine-D M 2 mg-30 mg-10 [...] MOUTH TWICE DAILY NEEDED FOR 10 DAYS [facility] Humulin R Regular U-100 Insulin 100 unit/mL [...] injection route at bedtime for 30 days. [facility] ibuprofen 800 mg tablet TAKE 1 TABLET BY MOUTH THREE TIMES DAILY NEEDED ibuprofen 800 mg tablet TAKE 1 TABLET BY MOUTH THREE TIMES DAILY NEEDED No ibuprofen 800 mg tablet TAKE 1 TABLET BY MOUTH THREE TIMES DAILY NEEDED [facility] insulin aspar prt-insulin aspart 100 unit/mL (70-30) [...] us route as directed for 30 days. [facility] Kenalog 40 mg/mL suspension for injection Take 60 mg by injection route as directed for 1 day. Kenalog 40 mg/mL suspension for injection Take 60 mg by injection route as directed for 1 day. No 60mg Kenalog 40 mg/mL suspension for injection Take 60 mg by injection route as directed for 1 day. [facility] lovastatin 20 mg tablet TAKE 1 TABLET BY MOUTH ONCE DAILY AT BEDTIME lovastatin 20 mg tablet TAKE 1 TABLET BY MOUTH ONCE DAILY AT BEDTIME No lovastatin 20 mg tablet TAKE 1 TABLET BY MOUTH ONCE DAILY AT BEDTIME [facility] metformin 1,000 mg tablet TAKE 1 TABLET BY MOUTH TWICE DAILY BEFORE MEAL(S) metformin 1,000 mg tablet TAKE 1 TABLET BY MOUTH TWICE DAILY BEFORE MEAL(S) No metformin 1,000 mg tablet TAKE 1 TABLET BY MOUTH TWICE DAILY BEFORE MEAL(S) [facility] mometasone 50 mcg/actuati on nasal spray USE 2 SPRAY(S) IN EACH NOSTRIL ONCE DAILY DIRECTED FOR 14 DAYS mometasone 50 mcg/actuati on nasal spray USE 2 SPRAY(S) IN EACH NOSTRIL ONCE DAILY DIRECTED FOR 14 DAYS No mometasone 50 mcg/actuat ion nasal spray USE 2 SPRAY(S) IN EACH NOSTRIL ONCE DAILY DIRECTED FOR 14 DAYS [facility] montelukast 10 mg tablet TAKE 1 TABLET BY MOUTH ONCE DAILY DIRECTED montelukast 10 mg tablet TAKE 1 TABLET BY MOUTH ONCE DAILY DIRECTED No montelukas t 10 mg tablet TAKE 1 TABLET BY MOUTH ONCE DAILY DIRECTED [facility] promethazin e-DM 6.25 mg-15 mg/5 mL oral syrup TAKE 5 ML BY MOUTH ONCE DAILY AT BEDTIME FOR 10 DAYS promethazin e-DM 6.25 mg-15 mg/5 mL oral syrup TAKE 5 ML BY MOUTH ONCE DAILY AT BEDTIME FOR 10 DAYS No promethazi ne-DM 6.25 mg-15 mg/5 mL oral syrup TAKE 5 ML BY MOUTH ONCE DAILY AT BEDTIME FOR 10 DAYS [facility] amlodipine 10 mg tablet TAKE 1 TABLET BY MOUTH ONCE DAILY DIRECTED FOR 90 DAYS amlodipine 10 mg tablet TAKE 1 TABLET BY MOUTH ONCE DAILY DIRECTED FOR 90 DAYS No amlodipine 10 mg tablet TAKE 1 TABLET BY MOUTH ONCE DAILY DIRECTED FOR 90 DAYS [facility] bromphenira mine-pseudo ephedrine-D M 2 mg-30 mg-10 [...] MOUTH TWICE DAILY NEEDED FOR 10 DAYS [facility] cetirizine 10 mg tablet Take 1 tablet every day by oral route. cetirizine 10 mg tablet Take 1 tablet every day by oral route. No 1 Q1D cetirizine 10 mg tablet Take 1 tablet every day by oral route. [facility] Chlorasepti c Throat [place] 1.4 % aerosol Take 1 spray every 4-6 hours by mucous route as needed. Chlorasepti c Throat [place] 1.4 % aerosol Take 1 spray every 4-6 hours by mucous route as needed. No 1spray( s) Q5H Chlorasept ic Throat [place] 1.4 % aerosol Take 1 spray every 4-6 hours by mucous route as needed. [facility] famotidine 20 mg tablet Take 1 tablet every day by oral route for 14 days. famotidine 20 mg tablet Take 1 tablet every day by oral route for 14 days. No 1 Q1D famotidine 20 mg tablet Take 1 tablet every day by oral route for 14 days. [facility] Humulin R Regular U-100 Insulin 100 unit/mL [...] injection route at bedtime for 30 days. [facility] ibuprofen 800 mg tablet TAKE 1 TABLET BY MOUTH THREE TIMES DAILY NEEDED ibuprofen 800 mg tablet TAKE 1 TABLET BY MOUTH THREE TIMES DAILY NEEDED No ibuprofen 800 mg tablet TAKE 1 TABLET BY MOUTH THREE TIMES DAILY NEEDED [facility] insulin aspar prt-insulin aspart 100 unit/mL (70-30) [...] us route as directed for 30 days. [facility] lovastatin 20 mg tablet TAKE 1 TABLET BY MOUTH ONCE DAILY AT BEDTIME lovastatin 20 mg tablet TAKE 1 TABLET BY MOUTH ONCE DAILY AT BEDTIME No lovastatin 20 mg tablet TAKE 1 TABLET BY MOUTH ONCE DAILY AT BEDTIME [facility] metformin 1,000 mg tablet TAKE 1 TABLET BY MOUTH TWICE DAILY BEFORE MEAL(S) metformin 1,000 mg tablet TAKE 1 TABLET BY MOUTH TWICE DAILY BEFORE MEAL(S) No metformin 1,000 mg tablet TAKE 1 TABLET BY MOUTH TWICE DAILY BEFORE MEAL(S) [facility] mometasone 50 mcg/actuati on nasal spray USE 2 SPRAY(S) IN EACH NOSTRIL ONCE DAILY DIRECTED FOR 14 DAYS mometasone 50 mcg/actuati on nasal spray USE 2 SPRAY(S) IN EACH NOSTRIL ONCE DAILY DIRECTED FOR 14 DAYS No mometasone 50 mcg/actuat ion nasal spray USE 2 SPRAY(S) IN EACH NOSTRIL ONCE DAILY DIRECTED FOR 14 DAYS [facility] montelukast 10 mg tablet TAKE 1 TABLET BY MOUTH ONCE DAILY DIRECTED montelukast 10 mg tablet TAKE 1 TABLET BY MOUTH ONCE DAILY DIRECTED No montelukas t 10 mg tablet TAKE 1 TABLET BY MOUTH ONCE DAILY DIRECTED [facility] amlodipine 10 mg tablet TAKE 1 TABLET BY MOUTH ONCE DAILY DIRECTED FOR 90 DAYS amlodipine 10 mg tablet TAKE 1 TABLET BY MOUTH ONCE DAILY DIRECTED FOR 90 DAYS No amlodipine 10 mg tablet TAKE 1 TABLET BY MOUTH ONCE DAILY DIRECTED FOR 90 DAYS [facility] bromphenira mine-pseudo ephedrine-D M 2 mg-30 mg-10 [...] MOUTH TWICE DAILY NEEDED FOR 10 DAYS [facility] cetirizine 10 mg tablet TAKE 1 TABLET BY MOUTH ONCE DAILY cetirizine 10 mg tablet TAKE 1 TABLET BY MOUTH ONCE DAILY No cetirizine 10 mg tablet TAKE 1 TABLET BY MOUTH ONCE DAILY [facility] Chlorasepti c Throat [place] 1.4 % aerosol Take 1 spray every 4-6 hours by mucous route as needed. Chlorasepti c Throat [place] 1.4 % aerosol Take 1 spray every 4-6 hours by mucous route as needed. No 1spray( s) Q5H Chlorasept ic Throat [place] 1.4 % aerosol Take 1 spray every 4-6 hours by mucous route as needed. [facility] famotidine 20 mg tablet TAKE 1 TABLET BY MOUTH ONCE DAILY FOR 14 DAYS famotidine 20 mg tablet TAKE 1 TABLET BY MOUTH ONCE DAILY FOR 14 DAYS No famotidine 20 mg tablet TAKE 1 TABLET BY MOUTH ONCE DAILY FOR 14 DAYS [facility] ferrous sulfate 325 mg (65 mg iron) [...] oral route as directed for 30 days. [facility] Humulin R Regular U-100 Insulin 100 unit/mL [...] injection route at bedtime for 30 days. [facility] ibuprofen 800 mg tablet TAKE 1 TABLET BY MOUTH THREE TIMES DAILY NEEDED ibuprofen 800 mg tablet TAKE 1 TABLET BY MOUTH THREE TIMES DAILY NEEDED No ibuprofen 800 mg tablet TAKE 1 TABLET BY MOUTH THREE TIMES DAILY NEEDED [facility] insulin aspar prt-insulin aspart 100 unit/mL (70-30) [...] us route as directed for 30 days. [facility] levothyroxi ne 25 mcg tablet Take 1 tablet every day by oral route in the morning for 30 days. levothyroxi ne 25 mcg tablet Take 1 tablet every day by oral route in the morning for 30 days. No 1 Q1D levothyrox ine 25 mcg tablet Take 1 tablet every day by oral route in the morning for 30 days. [facility] lovastatin 20 mg tablet TAKE 1 TABLET BY MOUTH ONCE DAILY AT BEDTIME lovastatin 20 mg tablet TAKE 1 TABLET BY MOUTH ONCE DAILY AT BEDTIME No lovastatin 20 mg tablet TAKE 1 TABLET BY MOUTH ONCE DAILY AT BEDTIME [facility] metformin 1,000 mg tablet TAKE 1 TABLET BY MOUTH TWICE DAILY BEFORE MEAL(S) metformin 1,000 mg tablet TAKE 1 TABLET BY MOUTH TWICE DAILY BEFORE MEAL(S) No metformin 1,000 mg tablet TAKE 1 TABLET BY MOUTH TWICE DAILY BEFORE MEAL(S) [facility] mometasone 50 mcg/actuati on nasal spray USE 2 SPRAY(S) IN EACH NOSTRIL ONCE DAILY DIRECTED FOR 14 DAYS mometasone 50 mcg/actuati on nasal spray USE 2 SPRAY(S) IN EACH NOSTRIL ONCE DAILY DIRECTED FOR 14 DAYS No mometasone 50 mcg/actuat ion nasal spray USE 2 SPRAY(S) IN EACH NOSTRIL ONCE DAILY DIRECTED FOR 14 DAYS [facility] montelukast 10 mg tablet TAKE 1 TABLET BY MOUTH ONCE DAILY DIRECTED montelukast 10 mg tablet TAKE 1 TABLET BY MOUTH ONCE DAILY DIRECTED No montelukas t 10 mg tablet TAKE 1 TABLET BY MOUTH ONCE DAILY DIRECTED [facility] amlodipine 10 mg tablet TAKE 1 TABLET BY MOUTH ONCE DAILY DIRECTED FOR 90 DAYS amlodipine 10 mg tablet TAKE 1 TABLET BY MOUTH ONCE DAILY DIRECTED FOR 90 DAYS No amlodipine 10 mg tablet TAKE 1 TABLET BY MOUTH ONCE DAILY DIRECTED FOR 90 DAYS [facility] bromphenira mine-pseudo ephedrine-D M 2 mg-30 mg-10 [...] oral route as needed for 10 days. [facility] cetirizine 10 mg tablet TAKE 1 TABLET BY MOUTH ONCE DAILY cetirizine 10 mg tablet TAKE 1 TABLET BY MOUTH ONCE DAILY No cetirizine 10 mg tablet TAKE 1 TABLET BY MOUTH ONCE DAILY [facility] Chlorasepti c Throat [place] 1.4 % aerosol Take 1 spray every 4-6 hours by mucous route as needed. Chlorasepti c Throat [place] 1.4 % aerosol Take 1 spray every 4-6 hours by mucous route as needed. No 1spray( s) Q5H Chlorasept ic Throat [place] 1.4 % aerosol Take 1 spray every 4-6 hours by mucous route as needed. [facility] Euthyrox 25 mcg tablet TAKE 1 TABLET [...] OF WATER ONE HOUR BEFORE EATING BREAKFAST [facility] FeroSul 325 mg (65 mg iron) tablet TAKE 1 TABLET BY MOUTH THREE TIMES DAILY DIRECTED FeroSul 325 mg (65 mg iron) tablet TAKE 1 TABLET BY MOUTH THREE TIMES DAILY DIRECTED No FeroSul 325 mg (65 mg iron) tablet TAKE 1 TABLET BY MOUTH THREE TIMES DAILY DIRECTED [facility] Humulin R Regular U-100 Insulin 100 unit/mL [...] injection route at bedtime for 30 days. [facility] ibuprofen 800 mg tablet TAKE 1 TABLET BY MOUTH THREE TIMES DAILY NEEDED ibuprofen 800 mg tablet TAKE 1 TABLET BY MOUTH THREE TIMES DAILY NEEDED No ibuprofen 800 mg tablet TAKE 1 TABLET BY MOUTH THREE TIMES DAILY NEEDED [facility] insulin aspar prt-insulin aspart 100 unit/mL (70-30) [...] us route as directed for 30 days. [facility] lisinopril 20 mg-hydrochl orothiazide 25 mg tablet TAKE 1 TABLET BY MOUTH ONCE DAILY IN THE MORNING lisinopril 20 mg-hydrochl orothiazide 25 mg tablet TAKE 1 TABLET BY MOUTH ONCE DAILY IN THE MORNING No lisinopril 20 mg-hydroch lorothiazi de 25 mg tablet TAKE 1 TABLET BY MOUTH ONCE DAILY IN THE MORNING [facility] lovastatin 20 mg tablet TAKE 1 TABLET BY MOUTH ONCE DAILY AT BEDTIME lovastatin 20 mg tablet TAKE 1 TABLET BY MOUTH ONCE DAILY AT BEDTIME No lovastatin 20 mg tablet TAKE 1 TABLET BY MOUTH ONCE DAILY AT BEDTIME [facility] metformin 1,000 mg tablet TAKE 1 TABLET BY MOUTH TWICE DAILY BEFORE MEAL(S) metformin 1,000 mg tablet TAKE 1 TABLET BY MOUTH TWICE DAILY BEFORE MEAL(S) No metformin 1,000 mg tablet TAKE 1 TABLET BY MOUTH TWICE DAILY BEFORE MEAL(S) [facility] mometasone 50 mcg/actuati on nasal spray USE 2 SPRAY(S) IN EACH NOSTRIL ONCE DAILY DIRECTED FOR 14 DAYS mometasone 50 mcg/actuati on nasal spray USE 2 SPRAY(S) IN EACH NOSTRIL ONCE DAILY DIRECTED FOR 14 DAYS No mometasone 50 mcg/actuat ion nasal spray USE 2 SPRAY(S) IN EACH NOSTRIL ONCE DAILY DIRECTED FOR 14 DAYS [facility] montelukast 10 mg tablet TAKE 1 TABLET BY MOUTH ONCE DAILY DIRECTED montelukast 10 mg tablet TAKE 1 TABLET BY MOUTH ONCE DAILY DIRECTED No montelukas t 10 mg tablet TAKE 1 TABLET BY MOUTH ONCE DAILY DIRECTED [facility] omeprazole 20 mg capsule,del ayed release TAKE ONE (1) CAPSULE(S) BY MOUTH EVERY MORNING. omeprazole 20 mg capsule,del ayed release TAKE ONE (1) CAPSULE(S) BY MOUTH EVERY MORNING. No omeprazole 20 mg capsule,de layed release TAKE ONE (1) CAPSULE(S) BY MOUTH EVERY MORNING. [facility] prednisone 20 mg tablet Take 1 tablet twice a day by oral route as directed for 7 days. prednisone 20 mg tablet Take 1 tablet twice a day by oral route as directed for 7 days. No 1 BID prednisone 20 mg tablet Take 1 tablet twice a day by oral route as directed for 7 days. [facility] Zithromax Z-Jose Antonio 250 mg tablet TAKE [...] ORAL ROUTE ONCE DAILY FOR 4 DAYS [facility] amlodipine 10 mg tablet TAKE 1 TABLET BY MOUTH ONCE DAILY DIRECTED FOR 90 DAYS amlodipine 10 mg tablet TAKE 1 TABLET BY MOUTH ONCE DAILY DIRECTED FOR 90 DAYS No amlodipine 10 mg tablet TAKE 1 TABLET BY MOUTH ONCE DAILY DIRECTED FOR 90 DAYS [facility] cetirizine 10 mg tablet TAKE 1 TABLET BY MOUTH ONCE DAILY cetirizine 10 mg tablet TAKE 1 TABLET BY MOUTH ONCE DAILY No cetirizine 10 mg tablet TAKE 1 TABLET BY MOUTH ONCE DAILY [facility] Chlorasepti c Throat [place] 1.4 % aerosol Take 1 spray every 4-6 hours by mucous route as needed. Chlorasepti c Throat [place] 1.4 % aerosol Take 1 spray every 4-6 hours by mucous route as needed. No 1spray( s) Q5H Chlorasept ic Throat [place] 1.4 % aerosol Take 1 spray every 4-6 hours by mucous route as needed. [facility] Euthyrox 25 mcg tablet TAKE 1 TABLET [...] OF WATER ONE HOUR BEFORE EATING BREAKFAST [facility] ferrous sulfate 325 mg (65 mg iron) tablet TAKE 1 TABLET BY MOUTH THREE TIMES DAILY DIRECTED ferrous sulfate 325 mg (65 mg iron) tablet TAKE 1 TABLET BY MOUTH THREE TIMES DAILY DIRECTED No ferrous sulfate 325 mg (65 mg iron) tablet TAKE 1 TABLET BY MOUTH THREE TIMES DAILY DIRECTED [facility] Humulin R Regular U-100 Insulin 100 unit/mL [...] injection route at bedtime for 30 days. [facility] ibuprofen 800 mg tablet TAKE 1 TABLET BY MOUTH THREE TIMES DAILY NEEDED ibuprofen 800 mg tablet TAKE 1 TABLET BY MOUTH THREE TIMES DAILY NEEDED No ibuprofen 800 mg tablet TAKE 1 TABLET BY MOUTH THREE TIMES DAILY NEEDED [facility] insulin aspar prt-insulin aspart 100 unit/mL (70-30) [...] us route as directed for 30 days. [facility] lisinopril 20 mg-hydrochl orothiazide 25 mg tablet TAKE 1 TABLET BY MOUTH ONCE DAILY IN THE MORNING lisinopril 20 mg-hydrochl orothiazide 25 mg tablet TAKE 1 TABLET BY MOUTH ONCE DAILY IN THE MORNING No lisinopril 20 mg-hydroch lorothiazi de 25 mg tablet TAKE 1 TABLET BY MOUTH ONCE DAILY IN THE MORNING [facility] lovastatin 20 mg tablet TAKE 1 TABLET BY MOUTH ONCE DAILY AT BEDTIME lovastatin 20 mg tablet TAKE 1 TABLET BY MOUTH ONCE DAILY AT BEDTIME No lovastatin 20 mg tablet TAKE 1 TABLET BY MOUTH ONCE DAILY AT BEDTIME [facility] metformin 1,000 mg tablet TAKE 1 TABLET BY MOUTH TWICE DAILY BEFORE MEAL(S) metformin 1,000 mg tablet TAKE 1 TABLET BY MOUTH TWICE DAILY BEFORE MEAL(S) No metformin 1,000 mg tablet TAKE 1 TABLET BY MOUTH TWICE DAILY BEFORE MEAL(S) [facility] mometasone 50 mcg/actuati on nasal spray USE 2 SPRAY(S) IN EACH NOSTRIL ONCE DAILY DIRECTED FOR 14 DAYS mometasone 50 mcg/actuati on nasal spray USE 2 SPRAY(S) IN EACH NOSTRIL ONCE DAILY DIRECTED FOR 14 DAYS No mometasone 50 mcg/actuat ion nasal spray USE 2 SPRAY(S) IN EACH NOSTRIL ONCE DAILY DIRECTED FOR 14 DAYS [facility] montelukast 10 mg tablet TAKE 1 TABLET BY MOUTH ONCE DAILY DIRECTED montelukast 10 mg tablet TAKE 1 TABLET BY MOUTH ONCE DAILY DIRECTED No montelukas t 10 mg tablet TAKE 1 TABLET BY MOUTH ONCE DAILY DIRECTED [facility] omeprazole 20 mg capsule,del ayed release TAKE ONE (1) CAPSULE(S) BY MOUTH EVERY MORNING. omeprazole 20 mg capsule,del ayed release TAKE ONE (1) CAPSULE(S) BY MOUTH EVERY MORNING. No omeprazole 20 mg capsule,de layed release TAKE ONE (1) CAPSULE(S) BY MOUTH EVERY MORNING. [facility] amlodipine 10 mg tablet TAKE 1 TABLET BY MOUTH ONCE DAILY DIRECTED FOR 90 DAYS amlodipine 10 mg tablet TAKE 1 TABLET BY MOUTH ONCE DAILY DIRECTED FOR 90 DAYS No amlodipine 10 mg tablet TAKE 1 TABLET BY MOUTH ONCE DAILY DIRECTED FOR 90 DAYS [facility] amoxicillin 875 mg-potassiu m clavulanate 125 mg tablet TAKE 1 TABLET BY MOUTH EVERY 12 HOURS DIRECTED FOR 7 DAYS amoxicillin 875 mg-potassiu m clavulanate 125 mg tablet TAKE 1 TABLET BY MOUTH EVERY 12 HOURS DIRECTED FOR 7 DAYS No amoxicilli n 875 mg-potassi um clavulanat e 125 mg tablet TAKE 1 TABLET BY MOUTH EVERY 12 HOURS DIRECTED FOR 7 DAYS [facility] Euthyrox 25 mcg tablet TAKE 1 TABLET [...] OF WATER ONE HOUR BEFORE EATING BREAKFAST [facility] ferrous sulfate 325 mg (65 mg iron) tablet TAKE 1 TABLET BY MOUTH THREE TIMES DAILY DIRECTED ferrous sulfate 325 mg (65 mg iron) tablet TAKE 1 TABLET BY MOUTH THREE TIMES DAILY DIRECTED No ferrous sulfate 325 mg (65 mg iron) tablet TAKE 1 TABLET BY MOUTH THREE TIMES DAILY DIRECTED [facility] Humulin R Regular U-100 Insulin 100 unit/mL [...] injection route at bedtime for 30 days. [facility] ibuprofen 800 mg tablet TAKE 1 TABLET BY MOUTH THREE TIMES DAILY NEEDED ibuprofen 800 mg tablet TAKE 1 TABLET BY MOUTH THREE TIMES DAILY NEEDED No ibuprofen 800 mg tablet TAKE 1 TABLET BY MOUTH THREE TIMES DAILY NEEDED [facility] insulin aspar prt-insulin aspart 100 unit/mL (70-30) [...] us route as directed for 30 days. [facility] lisinopril 20 mg-hydrochl orothiazide 25 mg tablet TAKE 1 TABLET BY MOUTH ONCE DAILY IN THE MORNING lisinopril 20 mg-hydrochl orothiazide 25 mg tablet TAKE 1 TABLET BY MOUTH ONCE DAILY IN THE MORNING No lisinopril 20 mg-hydroch lorothiazi de 25 mg tablet TAKE 1 TABLET BY MOUTH ONCE DAILY IN THE MORNING [facility] lovastatin 20 mg tablet TAKE 1 TABLET BY MOUTH ONCE DAILY AT BEDTIME lovastatin 20 mg tablet TAKE 1 TABLET BY MOUTH ONCE DAILY AT BEDTIME No lovastatin 20 mg tablet TAKE 1 TABLET BY MOUTH ONCE DAILY AT BEDTIME [facility] metformin 1,000 mg tablet TAKE 1 TABLET BY MOUTH TWICE DAILY BEFORE MEAL(S) metformin 1,000 mg tablet TAKE 1 TABLET BY MOUTH TWICE DAILY BEFORE MEAL(S) No metformin 1,000 mg tablet TAKE 1 TABLET BY MOUTH TWICE DAILY BEFORE MEAL(S) [facility] mometasone 50 mcg/actuati on nasal spray USE 2 SPRAY(S) IN EACH NOSTRIL ONCE DAILY DIRECTED FOR 14 DAYS mometasone 50 mcg/actuati on nasal spray USE 2 SPRAY(S) IN EACH NOSTRIL ONCE DAILY DIRECTED FOR 14 DAYS No mometasone 50 mcg/actuat ion nasal spray USE 2 SPRAY(S) IN EACH NOSTRIL ONCE DAILY DIRECTED FOR 14 DAYS [facility] omeprazole 20 mg capsule,del ayed release TAKE ONE (1) CAPSULE(S) BY MOUTH EVERY MORNING. omeprazole 20 mg capsule,del ayed release TAKE ONE (1) CAPSULE(S) BY MOUTH EVERY MORNING. No omeprazole 20 mg capsule,de layed release TAKE ONE (1) CAPSULE(S) BY MOUTH EVERY MORNING. [facility] amlodipine 10 mg tablet TAKE 1 TABLET BY MOUTH ONCE DAILY DIRECTED FOR 90 DAYS amlodipine 10 mg tablet TAKE 1 TABLET BY MOUTH ONCE DAILY DIRECTED FOR 90 DAYS No amlodipine 10 mg tablet TAKE 1 TABLET BY MOUTH ONCE DAILY DIRECTED FOR 90 DAYS [facility] Euthyrox 25 mcg tablet TAKE 1 TABLET [...] OF WATER ONE HOUR BEFORE EATING BREAKFAST [facility] ferrous sulfate 325 mg (65 mg iron) tablet TAKE 1 TABLET BY MOUTH THREE TIMES DAILY DIRECTED ferrous sulfate 325 mg (65 mg iron) tablet TAKE 1 TABLET BY MOUTH THREE TIMES DAILY DIRECTED No ferrous sulfate 325 mg (65 mg iron) tablet TAKE 1 TABLET BY MOUTH THREE TIMES DAILY DIRECTED [facility] ibuprofen 800 mg tablet TAKE 1 TABLET BY mouth DAILY NEEDED ibuprofen 800 mg tablet TAKE 1 TABLET BY mouth DAILY NEEDED No ibuprofen 800 mg tablet TAKE 1 TABLET BY mouth DAILY NEEDED [facility] lisinopril 20 mg-hydrochl orothiazide 25 mg tablet TAKE 1 TABLET BY MOUTH ONCE DAILY IN THE MORNING lisinopril 20 mg-hydrochl orothiazide 25 mg tablet TAKE 1 TABLET BY MOUTH ONCE DAILY IN THE MORNING No lisinopril 20 mg-hydroch lorothiazi de 25 mg tablet TAKE 1 TABLET BY MOUTH ONCE DAILY IN THE MORNING [facility] lovastatin 10 mg tablet Take 1 tablet every day by oral route for 90 days. lovastatin 10 mg tablet Take 1 tablet every day by oral route for 90 days. No 1 Q1D lovastatin 10 mg tablet Take 1 tablet every day by oral route for 90 days. [facility] lovastatin 20 mg tablet TAKE 1 TABLET BY MOUTH ONCE DAILY AT BEDTIME lovastatin 20 mg tablet TAKE 1 TABLET BY MOUTH ONCE DAILY AT BEDTIME No lovastatin 20 mg tablet TAKE 1 TABLET BY MOUTH ONCE DAILY AT BEDTIME [facility] metformin 1,000 mg tablet TAKE 1 TABLET BY MOUTH TWICE DAILY BEFORE MEAL(S) metformin 1,000 mg tablet TAKE 1 TABLET BY MOUTH TWICE DAILY BEFORE MEAL(S) No metformin 1,000 mg tablet TAKE 1 TABLET BY MOUTH TWICE DAILY BEFORE MEAL(S) [facility] mometasone 50 mcg/actuati on nasal spray USE 2 SPRAY(S) IN EACH NOSTRIL ONCE DAILY DIRECTED FOR 14 DAYS mometasone 50 mcg/actuati on nasal spray USE 2 SPRAY(S) IN EACH NOSTRIL ONCE DAILY DIRECTED FOR 14 DAYS No mometasone 50 mcg/actuat ion nasal spray USE 2 SPRAY(S) IN EACH NOSTRIL ONCE DAILY DIRECTED FOR 14 DAYS [facility] omeprazole 20 mg capsule,del ayed release TAKE ONE (1) CAPSULE(S) BY MOUTH EVERY MORNING. omeprazole 20 mg capsule,del ayed release TAKE ONE (1) CAPSULE(S) BY MOUTH EVERY MORNING. No omeprazole 20 mg capsule,de layed release TAKE ONE (1) CAPSULE(S) BY MOUTH EVERY MORNING. [facility] amlodipine 10 mg tablet TAKE 1 TABLET BY MOUTH ONCE DAILY DIRECTED FOR 90 DAYS amlodipine 10 mg tablet TAKE 1 TABLET BY MOUTH ONCE DAILY DIRECTED FOR 90 DAYS No amlodipine 10 mg tablet TAKE 1 TABLET BY MOUTH ONCE DAILY DIRECTED FOR 90 DAYS [facility] ciprofloxac in 500 mg tablet Take 1 tablet every 12 hours by oral route for 10 days. ciprofloxac in 500 mg tablet Take 1 tablet every 12 hours by oral route for 10 days. No 1 Q12H ciprofloxa [place] 500 mg tablet Take 1 tablet every 12 hours by oral route for 10 days. [facility] Euthyrox 25 mcg tablet TAKE 1 TABLET [...] OF WATER ONE HOUR BEFORE EATING BREAKFAST [facility] ferrous sulfate 325 mg (65 mg iron) tablet TAKE 1 TABLET BY MOUTH THREE TIMES DAILY DIRECTED ferrous sulfate 325 mg (65 mg iron) tablet TAKE 1 TABLET BY MOUTH THREE TIMES DAILY DIRECTED No ferrous sulfate 325 mg (65 mg iron) tablet TAKE 1 TABLET BY MOUTH THREE TIMES DAILY DIRECTED [facility] ibuprofen 800 mg tablet TAKE 1 TABLET BY mouth DAILY NEEDED ibuprofen 800 mg tablet TAKE 1 TABLET BY mouth DAILY NEEDED No ibuprofen 800 mg tablet TAKE 1 TABLET BY mouth DAILY NEEDED [facility] lisinopril 20 mg-hydrochl orothiazide 25 mg tablet TAKE 1 TABLET BY MOUTH ONCE DAILY IN THE MORNING lisinopril 20 mg-hydrochl orothiazide 25 mg tablet TAKE 1 TABLET BY MOUTH ONCE DAILY IN THE MORNING No lisinopril 20 mg-hydroch lorothiazi de 25 mg tablet TAKE 1 TABLET BY MOUTH ONCE DAILY IN THE MORNING [facility] lovastatin 10 mg tablet Take 1 tablet every day by oral route for 90 days. lovastatin 10 mg tablet Take 1 tablet every day by oral route for 90 days. No 1 Q1D lovastatin 10 mg tablet Take 1 tablet every day by oral route for 90 days. [facility] metformin 1,000 mg tablet TAKE 1 TABLET BY MOUTH TWICE DAILY BEFORE MEAL(S) metformin 1,000 mg tablet TAKE 1 TABLET BY MOUTH TWICE DAILY BEFORE MEAL(S) No metformin 1,000 mg tablet TAKE 1 TABLET BY MOUTH TWICE DAILY BEFORE MEAL(S) [facility] mometasone 50 mcg/actuati on nasal spray USE 2 SPRAY(S) IN EACH NOSTRIL ONCE DAILY DIRECTED FOR 14 DAYS mometasone 50 mcg/actuati on nasal spray USE 2 SPRAY(S) IN EACH NOSTRIL ONCE DAILY DIRECTED FOR 14 DAYS No mometasone 50 mcg/actuat ion nasal spray USE 2 SPRAY(S) IN EACH NOSTRIL ONCE DAILY DIRECTED FOR 14 DAYS [facility] omeprazole 20 mg capsule,del ayed release TAKE ONE (1) CAPSULE(S) BY MOUTH EVERY MORNING. omeprazole 20 mg capsule,del ayed release TAKE ONE (1) CAPSULE(S) BY MOUTH EVERY MORNING. No omeprazole 20 mg capsule,de layed release TAKE ONE (1) CAPSULE(S) BY MOUTH EVERY MORNING. [facility] amlodipine 10 mg tablet TAKE 1 TABLET BY MOUTH ONCE DAILY DIRECTED amlodipine 10 mg tablet TAKE 1 TABLET BY MOUTH ONCE DAILY DIRECTED No amlodipine 10 mg tablet TAKE 1 TABLET BY MOUTH ONCE DAILY DIRECTED [facility] benzonatate 100 mg capsule TAKE 1 CAPSULE BY MOUTH EVERY 8 HOURS NEEDED FOR COUGH benzonatate 100 mg capsule TAKE 1 CAPSULE BY MOUTH EVERY 8 HOURS NEEDED FOR COUGH No benzonatat e 100 mg capsule TAKE 1 CAPSULE BY MOUTH EVERY 8 HOURS NEEDED FOR COUGH [facility] Euthyrox 25 mcg tablet TAKE 1 TABLET [...] OF WATER ONE HOUR BEFORE EATING BREAKFAST [facility] ferrous sulfate 325 mg (65 mg iron) tablet TAKE 1 TABLET BY MOUTH THREE TIMES DAILY DIRECTED ferrous sulfate 325 mg (65 mg iron) tablet TAKE 1 TABLET BY MOUTH THREE TIMES DAILY DIRECTED No ferrous sulfate 325 mg (65 mg iron) tablet TAKE 1 TABLET BY MOUTH THREE TIMES DAILY DIRECTED [facility] ibuprofen 800 mg tablet TAKE 1 TABLET BY MOUTH ONCE DAILY NEEDED ibuprofen 800 mg tablet TAKE 1 TABLET BY MOUTH ONCE DAILY NEEDED No ibuprofen 800 mg tablet TAKE 1 TABLET BY MOUTH ONCE DAILY NEEDED [facility] lisinopril 20 mg-hydrochl orothiazide 25 mg tablet TAKE 1 TABLET BY MOUTH ONCE DAILY IN THE MORNING lisinopril 20 mg-hydrochl orothiazide 25 mg tablet TAKE 1 TABLET BY MOUTH ONCE DAILY IN THE MORNING No lisinopril 20 mg-hydroch lorothiazi de 25 mg tablet TAKE 1 TABLET BY MOUTH ONCE DAILY IN THE MORNING [facility] lovastatin 20 mg tablet Take 1 tablet every day by oral route in the evening. lovastatin 20 mg tablet Take 1 tablet every day by oral route in the evening. No 1 Q1D lovastatin 20 mg tablet Take 1 tablet every day by oral route in the evening. [facility] metformin 1,000 mg tablet TAKE 1 TABLET BY MOUTH TWICE DAILY BEFORE MEAL(S) metformin 1,000 mg tablet TAKE 1 TABLET BY MOUTH TWICE DAILY BEFORE MEAL(S) No metformin 1,000 mg tablet TAKE 1 TABLET BY MOUTH TWICE DAILY BEFORE MEAL(S) [facility] montelukast 10 mg tablet TAKE 1 TABLET BY MOUTH ONCE DAILY DIRECTED montelukast 10 mg tablet TAKE 1 TABLET BY MOUTH ONCE DAILY DIRECTED No montelukas t 10 mg tablet TAKE 1 TABLET BY MOUTH ONCE DAILY DIRECTED [facility] omeprazole 20 mg capsule,del ayed release TAKE ONE (1) CAPSULE(S) BY MOUTH EVERY MORNING. omeprazole 20 mg capsule,del ayed release TAKE ONE (1) CAPSULE(S) BY MOUTH EVERY MORNING. No omeprazole 20 mg capsule,de layed release TAKE ONE (1) CAPSULE(S) BY MOUTH EVERY MORNING. [facility] amlodipine 10 mg tablet TAKE 1 TABLET BY MOUTH ONCE DAILY DIRECTED amlodipine 10 mg tablet TAKE 1 TABLET BY MOUTH ONCE DAILY DIRECTED No amlodipine 10 mg tablet TAKE 1 TABLET BY MOUTH ONCE DAILY DIRECTED [facility] amoxicillin 875 mg-potassiu m clavulanate 125 mg tablet TAKE 1 TABLET BY MOUTH EVERY 12 HOURS DIRECTED FOR 10 DAYS amoxicillin 875 mg-potassiu m clavulanate 125 mg tablet TAKE 1 TABLET BY MOUTH EVERY 12 HOURS DIRECTED FOR 10 DAYS No amoxicilli n 875 mg-potassi um clavulanat e 125 mg tablet TAKE 1 TABLET BY MOUTH EVERY 12 HOURS DIRECTED FOR 10 DAYS [facility] benzonatate 100 mg capsule TAKE 1 CAPSULE BY MOUTH EVERY 8 HOURS NEEDED FOR COUGH benzonatate 100 mg capsule TAKE 1 CAPSULE BY MOUTH EVERY 8 HOURS NEEDED FOR COUGH No benzonatat e 100 mg capsule TAKE 1 CAPSULE BY MOUTH EVERY 8 HOURS NEEDED FOR COUGH [facility] cetirizine 10 mg tablet Take 1 tablet every day by oral route. cetirizine 10 mg tablet Take 1 tablet every day by oral route. No 1 Q1D cetirizine 10 mg tablet Take 1 tablet every day by oral route. [facility] Euthyrox 25 mcg tablet TAKE 1 TABLET [...] OF WATER ONE HOUR BEFORE EATING BREAKFAST [facility] ferrous sulfate 325 mg (65 mg iron) tablet TAKE 1 TABLET BY MOUTH THREE TIMES DAILY DIRECTED ferrous sulfate 325 mg (65 mg iron) tablet TAKE 1 TABLET BY MOUTH THREE TIMES DAILY DIRECTED No ferrous sulfate 325 mg (65 mg iron) tablet TAKE 1 TABLET BY MOUTH THREE TIMES DAILY DIRECTED [facility] ibuprofen 800 mg tablet TAKE 1 TABLET BY MOUTH ONCE DAILY NEEDED ibuprofen 800 mg tablet TAKE 1 TABLET BY MOUTH ONCE DAILY NEEDED No ibuprofen 800 mg tablet TAKE 1 TABLET BY MOUTH ONCE DAILY NEEDED [facility] Kenalog 40 mg/mL suspension for injection Take 40 mg by injection route as directed for 1 day. Kenalog 40 mg/mL suspension for injection Take 40 mg by injection route as directed for 1 day. No 40mg Kenalog 40 mg/mL suspension for injection Take 40 mg by injection route as directed for 1 day. [facility] lisinopril 20 mg-hydrochl orothiazide 25 mg tablet TAKE 1 TABLET BY MOUTH ONCE DAILY IN THE MORNING lisinopril 20 mg-hydrochl orothiazide 25 mg tablet TAKE 1 TABLET BY MOUTH ONCE DAILY IN THE MORNING No lisinopril 20 mg-hydroch lorothiazi de 25 mg tablet TAKE 1 TABLET BY MOUTH ONCE DAILY IN THE MORNING [facility] lovastatin 20 mg tablet Take 1 tablet every day by oral route in the evening. lovastatin 20 mg tablet Take 1 tablet every day by oral route in the evening. No 1 Q1D lovastatin 20 mg tablet Take 1 tablet every day by oral route in the evening. [facility] metformin 1,000 mg tablet TAKE 1 TABLET BY MOUTH TWICE DAILY BEFORE MEAL(S) metformin 1,000 mg tablet TAKE 1 TABLET BY MOUTH TWICE DAILY BEFORE MEAL(S) No metformin 1,000 mg tablet TAKE 1 TABLET BY MOUTH TWICE DAILY BEFORE MEAL(S) [facility] montelukast 10 mg tablet TAKE 1 TABLET BY MOUTH ONCE DAILY DIRECTED montelukast 10 mg tablet TAKE 1 TABLET BY MOUTH ONCE DAILY DIRECTED No montelukas t 10 mg tablet TAKE 1 TABLET BY MOUTH ONCE DAILY DIRECTED [facility] omeprazole 20 mg capsule,del ayed release TAKE ONE (1) CAPSULE(S) BY MOUTH EVERY MORNING. omeprazole 20 mg capsule,del ayed release TAKE ONE (1) CAPSULE(S) BY MOUTH EVERY MORNING. No omeprazole 20 mg capsule,de layed release TAKE ONE (1) CAPSULE(S) BY MOUTH EVERY MORNING. [facility] promethazin e-DM 6.25 mg-15 mg/5 mL oral syrup TAKE 5 ML BY MOUTH ONCE DAILY AT BEDTIME FOR 10 DAYS promethazin e-DM 6.25 mg-15 mg/5 mL oral syrup TAKE 5 ML BY MOUTH ONCE DAILY AT BEDTIME FOR 10 DAYS No promethazi ne-DM 6.25 mg-15 mg/5 mL oral syrup TAKE 5 ML BY MOUTH ONCE DAILY AT BEDTIME FOR 10 DAYS [facility] amlodipine 10 mg tablet TAKE 1 TABLET BY MOUTH ONCE DAILY DIRECTED amlodipine 10 mg tablet TAKE 1 TABLET BY MOUTH ONCE DAILY DIRECTED No amlodipine 10 mg tablet TAKE 1 TABLET BY MOUTH ONCE DAILY DIRECTED [facility] amoxicillin 875 mg-potassiu m clavulanate 125 mg tablet TAKE 1 TABLET BY MOUTH EVERY 12 HOURS DIRECTED FOR 10 DAYS amoxicillin 875 mg-potassiu m clavulanate 125 mg tablet TAKE 1 TABLET BY MOUTH EVERY 12 HOURS DIRECTED FOR 10 DAYS No amoxicilli n 875 mg-potassi um clavulanat e 125 mg tablet TAKE 1 TABLET BY MOUTH EVERY 12 HOURS DIRECTED FOR 10 DAYS [facility] benzonatate 100 mg capsule TAKE 1 CAPSULE BY MOUTH EVERY 8 HOURS NEEDED FOR COUGH benzonatate 100 mg capsule TAKE 1 CAPSULE BY MOUTH EVERY 8 HOURS NEEDED FOR COUGH No benzonatat e 100 mg capsule TAKE 1 CAPSULE BY MOUTH EVERY 8 HOURS NEEDED FOR COUGH [facility] cetirizine 10 mg tablet Take 1 tablet every day by oral route. cetirizine 10 mg tablet Take 1 tablet every day by oral route. No 1 Q1D cetirizine 10 mg tablet Take 1 tablet every day by oral route. [facility] Euthyrox 25 mcg tablet TAKE 1 TABLET [...] OF WATER ONE HOUR BEFORE EATING BREAKFAST [facility] ferrous sulfate 325 mg (65 mg iron) tablet TAKE 1 TABLET BY MOUTH THREE TIMES DAILY DIRECTED ferrous sulfate 325 mg (65 mg iron) tablet TAKE 1 TABLET BY MOUTH THREE TIMES DAILY DIRECTED No ferrous sulfate 325 mg (65 mg iron) tablet TAKE 1 TABLET BY MOUTH THREE TIMES DAILY DIRECTED [facility] ibuprofen 800 mg tablet TAKE 1 TABLET BY MOUTH ONCE DAILY NEEDED ibuprofen 800 mg tablet TAKE 1 TABLET BY MOUTH ONCE DAILY NEEDED No ibuprofen 800 mg tablet TAKE 1 TABLET BY MOUTH ONCE DAILY NEEDED [facility] Kenalog 40 mg/mL suspension for injection Take 40 mg by injection route as directed for 1 day. Kenalog 40 mg/mL suspension for injection Take 40 mg by injection route as directed for 1 day. No 40mg Kenalog 40 mg/mL suspension for injection Take 40 mg by injection route as directed for 1 day. [facility] lisinopril 20 mg-hydrochl orothiazide 25 mg tablet TAKE 1 TABLET BY MOUTH ONCE DAILY IN THE MORNING lisinopril 20 mg-hydrochl orothiazide 25 mg tablet TAKE 1 TABLET BY MOUTH ONCE DAILY IN THE MORNING No lisinopril 20 mg-hydroch lorothiazi de 25 mg tablet TAKE 1 TABLET BY MOUTH ONCE DAILY IN THE MORNING [facility] lovastatin 20 mg tablet Take 1 tablet every day by oral route in the evening. lovastatin 20 mg tablet Take 1 tablet every day by oral route in the evening. No 1 Q1D lovastatin 20 mg tablet Take 1 tablet every day by oral route in the evening. [facility] metformin 1,000 mg tablet TAKE 1 TABLET BY MOUTH TWICE DAILY BEFORE MEAL(S) metformin 1,000 mg tablet TAKE 1 TABLET BY MOUTH TWICE DAILY BEFORE MEAL(S) No metformin 1,000 mg tablet TAKE 1 TABLET BY MOUTH TWICE DAILY BEFORE MEAL(S) [facility] montelukast 10 mg tablet TAKE 1 TABLET BY MOUTH ONCE DAILY DIRECTED montelukast 10 mg tablet TAKE 1 TABLET BY MOUTH ONCE DAILY DIRECTED No montelukas t 10 mg tablet TAKE 1 TABLET BY MOUTH ONCE DAILY DIRECTED [facility] omeprazole 20 mg capsule,del ayed release TAKE ONE (1) CAPSULE(S) BY MOUTH EVERY MORNING. omeprazole 20 mg capsule,del ayed release TAKE ONE (1) CAPSULE(S) BY MOUTH EVERY MORNING. No omeprazole 20 mg capsule,de layed release TAKE ONE (1) CAPSULE(S) BY MOUTH EVERY MORNING. [facility] promethazin e-DM 6.25 mg-15 mg/5 mL oral syrup TAKE 5 ML BY MOUTH ONCE DAILY AT BEDTIME FOR 10 DAYS promethazin e-DM 6.25 mg-15 mg/5 mL oral syrup TAKE 5 ML BY MOUTH ONCE DAILY AT BEDTIME FOR 10 DAYS No promethazi ne-DM 6.25 mg-15 mg/5 mL oral syrup TAKE 5 ML BY MOUTH ONCE DAILY AT BEDTIME FOR 10 DAYS [facility] amlodipine 10 mg tablet TAKE 1 TABLET BY MOUTH ONCE DAILY DIRECTED amlodipine 10 mg tablet TAKE 1 TABLET BY MOUTH ONCE DAILY DIRECTED No amlodipine 10 mg tablet TAKE 1 TABLET BY MOUTH ONCE DAILY DIRECTED [facility] cetirizine 10 mg tablet Take 1 tablet every day by oral route. cetirizine 10 mg tablet Take 1 tablet every day by oral route. No 1 Q1D cetirizine 10 mg tablet Take 1 tablet every day by oral route. [facility] doxycycline hyclate 100 mg capsule Take 1 capsule twice a day by oral route for 7 days. doxycycline hyclate 100 mg capsule Take 1 capsule twice a day by oral route for 7 days. No 1capsul e(s) BID doxycyclin e hyclate 100 mg capsule Take 1 capsule twice a day by oral route for 7 days. [facility] Euthyrox 25 mcg tablet TAKE 1 TABLET [...] OF WATER ONE HOUR BEFORE EATING BREAKFAST [facility] ferrous sulfate 325 mg (65 mg iron) tablet TAKE 1 TABLET BY MOUTH THREE TIMES DAILY DIRECTED ferrous sulfate 325 mg (65 mg iron) tablet TAKE 1 TABLET BY MOUTH THREE TIMES DAILY DIRECTED No ferrous sulfate 325 mg (65 mg iron) tablet TAKE 1 TABLET BY MOUTH THREE TIMES DAILY DIRECTED [facility] fluticasone propionate 50 mcg/actuati on nasal spray,suspe nsion [place] 1 spray every day by intranasal route. 1 SPRAY TO EACH NOSTRIL fluticasone propionate 50 mcg/actuati on nasal spray,suspe nsion [place] 1 spray every day by intranasal route. 1 SPRAY TO EACH NOSTRIL No 1spray( s) Q1D fluticason e propionate 50 mcg/actuat ion nasal spray,susp ension [place] 1 spray every day by intranasal route. 1 SPRAY TO EACH NOSTRIL [facility] guaifenesin ER 600 mg tablet, extended release [...] by oral route as needed. FOR COUGH [facility] ibuprofen 800 mg tablet TAKE 1 TABLET BY MOUTH ONCE DAILY NEEDED ibuprofen 800 mg tablet TAKE 1 TABLET BY MOUTH ONCE DAILY NEEDED No ibuprofen 800 mg tablet TAKE 1 TABLET BY MOUTH ONCE DAILY NEEDED [facility] lisinopril 20 mg-hydrochl orothiazide 25 mg tablet TAKE 1 TABLET BY MOUTH ONCE DAILY IN THE MORNING lisinopril 20 mg-hydrochl orothiazide 25 mg tablet TAKE 1 TABLET BY MOUTH ONCE DAILY IN THE MORNING No lisinopril 20 mg-hydroch lorothiazi de 25 mg tablet TAKE 1 TABLET BY MOUTH ONCE DAILY IN THE MORNING [facility] lovastatin 20 mg tablet Take 1 tablet every day by oral route in the evening. lovastatin 20 mg tablet Take 1 tablet every day by oral route in the evening. No 1 Q1D lovastatin 20 mg tablet Take 1 tablet every day by oral route in the evening. [facility] metformin 1,000 mg tablet TAKE 1 TABLET BY MOUTH TWICE DAILY BEFORE MEAL(S) metformin 1,000 mg tablet TAKE 1 TABLET BY MOUTH TWICE DAILY BEFORE MEAL(S) No metformin 1,000 mg tablet TAKE 1 TABLET BY MOUTH TWICE DAILY BEFORE MEAL(S) [facility] omeprazole 20 mg capsule,del ayed release TAKE ONE (1) CAPSULE(S) BY MOUTH EVERY MORNING. omeprazole 20 mg capsule,del ayed release TAKE ONE (1) CAPSULE(S) BY MOUTH EVERY MORNING. No omeprazole 20 mg capsule,de layed release TAKE ONE (1) CAPSULE(S) BY MOUTH EVERY MORNING. [facility] promethazin e-DM 6.25 mg-15 mg/5 mL oral syrup TAKE 5 ML BY MOUTH ONCE DAILY AT BEDTIME NEEDED FOR COUGH promethazin e-DM 6.25 mg-15 mg/5 mL oral syrup TAKE 5 ML BY MOUTH ONCE DAILY AT BEDTIME NEEDED FOR COUGH No promethazi ne-DM 6.25 mg-15 mg/5 mL oral syrup TAKE 5 ML BY MOUTH ONCE DAILY AT BEDTIME NEEDED FOR COUGH [facility] amlodipine 10 mg tablet TAKE 1 TABLET BY MOUTH ONCE DAILY DIRECTED amlodipine 10 mg tablet TAKE 1 TABLET BY MOUTH ONCE DAILY DIRECTED No amlodipine 10 mg tablet TAKE 1 TABLET BY MOUTH ONCE DAILY DIRECTED [facility] amoxicillin 875 mg-potassiu m clavulanate 125 mg [...] day by oral route for 7 days. [facility] cetirizine 10 mg tablet Take 1 tablet every day by oral route. cetirizine 10 mg tablet Take 1 tablet every day by oral route. No 1 Q1D cetirizine 10 mg tablet Take 1 tablet every day by oral route. [facility] fluticasone propionate 50 mcg/actuati on nasal spray,suspe nsion [place] 1 spray every day by intranasal route. fluticasone propionate 50 mcg/actuati on nasal spray,suspe nsion [place] 1 spray every day by intranasal route. No fluticason e propionate 50 mcg/actuat ion nasal spray,susp ension [place] 1 spray every day by intranasal route. [facility] ibuprofen 800 mg tablet Take 1 tablet twice a day by oral route as needed for 30 days. ibuprofen 800 mg tablet Take 1 tablet twice a day by oral route as needed for 30 days. No 1 BID ibuprofen 800 mg tablet Take 1 tablet twice a day by oral route as needed for 30 days. [facility] Kenalog 40 mg/mL suspension for injection Take 60 mg by injection route as directed. Kenalog 40 mg/mL suspension for injection Take 60 mg by injection route as directed. No 60mg Kenalog 40 mg/mL suspension for injection Take 60 mg by injection route as directed. [facility] lisinopril 20 mg-hydrochl orothiazide 25 mg tablet TAKE 1 TABLET BY MOUTH ONCE DAILY IN THE MORNING lisinopril 20 mg-hydrochl orothiazide 25 mg tablet TAKE 1 TABLET BY MOUTH ONCE DAILY IN THE MORNING No lisinopril 20 mg-hydroch lorothiazi de 25 mg tablet TAKE 1 TABLET BY MOUTH ONCE DAILY IN THE MORNING [facility] lovastatin 20 mg tablet Take 1 tablet every day by oral route in the evening. lovastatin 20 mg tablet Take 1 tablet every day by oral route in the evening. No 1 Q1D lovastatin 20 mg tablet Take 1 tablet every day by oral route in the evening. [facility] metformin 1,000 mg tablet TAKE 1 TABLET BY MOUTH TWICE DAILY BEFORE MEAL(S) metformin 1,000 mg tablet TAKE 1 TABLET BY MOUTH TWICE DAILY BEFORE MEAL(S) No metformin 1,000 mg tablet TAKE 1 TABLET BY MOUTH TWICE DAILY BEFORE MEAL(S) [facility] promethazin e-DM 6.25 mg-15 mg/5 mL oral syrup Take 5 mL every 6-8 hours by oral route as needed. promethazin e-DM 6.25 mg-15 mg/5 mL oral syrup Take 5 mL every 6-8 hours by oral route as needed. No 5mL Q7H promethazi ne-DM 6.25 mg-15 mg/5 mL oral syrup Take 5 mL every 6-8 hours by oral route as needed. [facility] amlodipine 10 mg tablet TAKE 1 TABLET BY MOUTH ONCE DAILY DIRECTED amlodipine 10 mg tablet TAKE 1 TABLET BY MOUTH ONCE DAILY DIRECTED No amlodipine 10 mg tablet TAKE 1 TABLET BY MOUTH ONCE DAILY DIRECTED [facility] cetirizine 10 mg tablet Take 1 tablet every day by oral route. cetirizine 10 mg tablet Take 1 tablet every day by oral route. No 1 Q1D cetirizine 10 mg tablet Take 1 tablet every day by oral route. [facility] ferrous sulfate 325 mg (65 mg iron) tablet Take 1 tablet twice a day by oral route. ferrous sulfate 325 mg (65 mg iron) tablet Take 1 tablet twice a day by oral route. No 1 BID ferrous sulfate 325 mg (65 mg iron) tablet Take 1 tablet twice a day by oral route. [facility] fluticasone propionate 50 mcg/actuati on nasal spray,suspe nsion [place] 1 spray every day by intranasal route. fluticasone propionate 50 mcg/actuati on nasal spray,suspe nsion [place] 1 spray every day by intranasal route. No fluticason e propionate 50 mcg/actuat ion nasal spray,susp ension [place] 1 spray every day by intranasal route. [facility] Humulin 70/30 U-100 Insulin 50 units daily (if BS is over 120) Humulin 70/30 U-100 Insulin 50 units daily (if BS is over 120) No Humulin 70/30 U-100 Insulin 50 units daily (if BS is over 120) [facility] ibuprofen 800 mg tablet Take 1 tablet twice a day by oral route as needed for 30 days. ibuprofen 800 mg tablet Take 1 tablet twice a day by oral route as needed for 30 days. No 1 BID ibuprofen 800 mg tablet Take 1 tablet twice a day by oral route as needed for 30 days. [facility] lisinopril 20 mg-hydrochl orothiazide 25 mg tablet TAKE 1 TABLET BY MOUTH ONCE DAILY IN THE MORNING lisinopril 20 mg-hydrochl orothiazide 25 mg tablet TAKE 1 TABLET BY MOUTH ONCE DAILY IN THE MORNING No lisinopril 20 mg-hydroch lorothiazi de 25 mg tablet TAKE 1 TABLET BY MOUTH ONCE DAILY IN THE MORNING [facility] lovastatin 20 mg tablet Take 1 tablet every day by oral route in the evening. lovastatin 20 mg tablet Take 1 tablet every day by oral route in the evening. No 1 Q1D lovastatin 20 mg tablet Take 1 tablet every day by oral route in the evening. [facility] Medrol ([place]) 4 mg tablets in a dose pack Take 1 dose pk by oral route as directed. Medrol ([place]) 4 mg tablets in a dose pack Take 1 dose pk by oral route as directed. No 1dose pk(s) Medrol ([place]) 4 mg tablets in a dose pack Take 1 dose pk by oral route as directed. [facility] metformin 1,000 mg tablet TAKE 1 TABLET BY MOUTH TWICE DAILY BEFORE MEAL(S) metformin 1,000 mg tablet TAKE 1 TABLET BY MOUTH TWICE DAILY BEFORE MEAL(S) No metformin 1,000 mg tablet TAKE 1 TABLET BY MOUTH TWICE DAILY BEFORE MEAL(S) [facility] promethazin e-DM 6.25 mg-15 mg/5 mL oral [...] by oral route as needed. FOR COUGH [facility] amlodipine 10 mg tablet TAKE 1 TABLET BY MOUTH ONCE DAILY DIRECTED amlodipine 10 mg tablet TAKE 1 TABLET BY MOUTH ONCE DAILY DIRECTED No amlodipine 10 mg tablet TAKE 1 TABLET BY MOUTH ONCE DAILY DIRECTED [facility] ceftriaxone 1 gram solution for injection Take 1 g by injection route for 1 day. ceftriaxone 1 gram solution for injection Take 1 g by injection route for 1 day. No 1g ceftriaxon e 1 gram solution for injection Take 1 g by injection route for 1 day. [facility] cetirizine 10 mg tablet Take 1 tablet every day by oral route. cetirizine 10 mg tablet Take 1 tablet every day by oral route. No 1 Q1D cetirizine 10 mg tablet Take 1 tablet every day by oral route. [facility] ferrous sulfate 325 mg (65 mg iron) tablet Take 1 tablet twice a day by oral route. ferrous sulfate 325 mg (65 mg iron) tablet Take 1 tablet twice a day by oral route. No 1 BID ferrous sulfate 325 mg (65 mg iron) tablet Take 1 tablet twice a day by oral route. [facility] fluticasone propionate 50 mcg/actuati on nasal spray,suspe nsion [place] 1 spray every day by intranasal route. fluticasone propionate 50 mcg/actuati on nasal spray,suspe nsion [place] 1 spray every day by intranasal route. No fluticason e propionate 50 mcg/actuat ion nasal spray,susp ension [place] 1 spray every day by intranasal route. [facility] Humulin 70/30 U-100 Insulin 50 units daily (if BS is over 120) Humulin 70/30 U-100 Insulin 50 units daily (if BS is over 120) No Humulin 70/30 U-100 Insulin 50 units daily (if BS is over 120) [facility] ibuprofen 800 mg tablet Take 1 tablet twice a day by oral route as needed for 30 days. ibuprofen 800 mg tablet Take 1 tablet twice a day by oral route as needed for 30 days. No 1 BID ibuprofen 800 mg tablet Take 1 tablet twice a day by oral route as needed for 30 days. [facility] lidocaine HCl 10 mg/mL (1 %) injection solution Take 2 mL by injection route. lidocaine HCl 10 mg/mL (1 %) injection solution Take 2 mL by injection route. No 2mL lidocaine HCl 10 mg/mL (1 %) injection solution Take 2 mL by injection route. [facility] lisinopril 20 mg-hydrochl orothiazide 25 mg tablet TAKE 1 TABLET BY MOUTH ONCE DAILY IN THE MORNING lisinopril 20 mg-hydrochl orothiazide 25 mg tablet TAKE 1 TABLET BY MOUTH ONCE DAILY IN THE MORNING No lisinopril 20 mg-hydroch lorothiazi de 25 mg tablet TAKE 1 TABLET BY MOUTH ONCE DAILY IN THE MORNING [facility] lovastatin 20 mg tablet Take 1 tablet every day by oral route in the evening. lovastatin 20 mg tablet Take 1 tablet every day by oral route in the evening. No 1 Q1D lovastatin 20 mg tablet Take 1 tablet every day by oral route in the evening. [facility] Medrol ([place]) 4 mg tablets in a dose pack Take 1 dose pk by oral route as directed. Medrol ([place]) 4 mg tablets in a dose pack Take 1 dose pk by oral route as directed. No 1dose pk(s) Medrol ([place]) 4 mg tablets in a dose pack Take 1 dose pk by oral route as directed. [facility] metformin 1,000 mg tablet TAKE 1 TABLET BY MOUTH TWICE DAILY BEFORE MEAL(S) metformin 1,000 mg tablet TAKE 1 TABLET BY MOUTH TWICE DAILY BEFORE MEAL(S) No metformin 1,000 mg tablet TAKE 1 TABLET BY MOUTH TWICE DAILY BEFORE MEAL(S) [facility] promethazin e-DM 6.25 mg-15 mg/5 mL oral [...] by oral route as needed. FOR COUGH [facility] amlodipine 10 mg tablet TAKE 1 TABLET BY MOUTH ONCE DAILY DIRECTED amlodipine 10 mg tablet TAKE 1 TABLET BY MOUTH ONCE DAILY DIRECTED No amlodipine 10 mg tablet TAKE 1 TABLET BY MOUTH ONCE DAILY DIRECTED [facility] ceftriaxone 1 gram solution for injection Take 1 g by injection route for 1 day. ceftriaxone 1 gram solution for injection Take 1 g by injection route for 1 day. No 1g ceftriaxon e 1 gram solution for injection Take 1 g by injection route for 1 day. [facility] cetirizine 10 mg tablet Take 1 tablet every day by oral route. cetirizine 10 mg tablet Take 1 tablet every day by oral route. No 1 Q1D cetirizine 10 mg tablet Take 1 tablet every day by oral route. [facility] ferrous sulfate 325 mg (65 mg iron) tablet Take 1 tablet twice a day by oral route. ferrous sulfate 325 mg (65 mg iron) tablet Take 1 tablet twice a day by oral route. No 1 BID ferrous sulfate 325 mg (65 mg iron) tablet Take 1 tablet twice a day by oral route. [facility] fluticasone propionate 50 mcg/actuati on nasal spray,suspe nsion [place] 1 spray every day by intranasal route. fluticasone propionate 50 mcg/actuati on nasal spray,suspe nsion [place] 1 spray every day by intranasal route. No fluticason e propionate 50 mcg/actuat ion nasal spray,susp ension [place] 1 spray every day by intranasal route. [facility] Humulin 70/30 U-100 Insulin 50 units daily (if BS is over 120) Humulin 70/30 U-100 Insulin 50 units daily (if BS is over 120) No Humulin 70/30 U-100 Insulin 50 units daily (if BS is over 120) [facility] ibuprofen 800 mg tablet Take 1 tablet twice a day by oral route as needed for 30 days. ibuprofen 800 mg tablet Take 1 tablet twice a day by oral route as needed for 30 days. No 1 BID ibuprofen 800 mg tablet Take 1 tablet twice a day by oral route as needed for 30 days. [facility] lidocaine HCl 10 mg/mL (1 %) injection solution Take 2 mL by injection route. lidocaine HCl 10 mg/mL (1 %) injection solution Take 2 mL by injection route. No 2mL lidocaine HCl 10 mg/mL (1 %) injection solution Take 2 mL by injection route. [facility] lisinopril 20 mg-hydrochl orothiazide 25 mg tablet TAKE 1 TABLET BY MOUTH ONCE DAILY IN THE MORNING lisinopril 20 mg-hydrochl orothiazide 25 mg tablet TAKE 1 TABLET BY MOUTH ONCE DAILY IN THE MORNING No lisinopril 20 mg-hydroch lorothiazi de 25 mg tablet TAKE 1 TABLET BY MOUTH ONCE DAILY IN THE MORNING [facility] lovastatin 20 mg tablet Take 1 tablet every day by oral route in the evening. lovastatin 20 mg tablet Take 1 tablet every day by oral route in the evening. No 1 Q1D lovastatin 20 mg tablet Take 1 tablet every day by oral route in the evening. [facility] Medrol ([place]) 4 mg tablets in a dose pack Take 1 dose pk by oral route as directed. Medrol ([place]) 4 mg tablets in a dose pack Take 1 dose pk by oral route as directed. No 1dose pk(s) Medrol ([place]) 4 mg tablets in a dose pack Take 1 dose pk by oral route as directed. [facility] metformin 1,000 mg tablet TAKE 1 TABLET BY MOUTH TWICE DAILY BEFORE MEAL(S) metformin 1,000 mg tablet TAKE 1 TABLET BY MOUTH TWICE DAILY BEFORE MEAL(S) No metformin 1,000 mg tablet TAKE 1 TABLET BY MOUTH TWICE DAILY BEFORE MEAL(S) [facility] promethazin e-DM 6.25 mg-15 mg/5 mL oral [...] by oral route as needed. FOR COUGH [facility] amlodipine 10 mg tablet TAKE 1 TABLET BY MOUTH ONCE DAILY DIRECTED amlodipine 10 mg tablet TAKE 1 TABLET BY MOUTH ONCE DAILY DIRECTED No amlodipine 10 mg tablet TAKE 1 TABLET BY MOUTH ONCE DAILY DIRECTED [facility] azelastine 205.5 mcg (0.15 %) nasal spray azelastine 205.5 mcg (0.15 %) nasal spray No azelastine 205.5 mcg (0.15 %) nasal spray [facility] cefdinir 300 mg capsule Take 1 capsule every 12 hours by oral route for 10 days. cefdinir 300 mg capsule Take 1 capsule every 12 hours by oral route for 10 days. No 1capsul e(s) Q12H cefdinir 300 mg capsule Take 1 capsule every 12 hours by oral route for 10 days. [facility] cetirizine 10 mg tablet Take 1 tablet every day by oral route. cetirizine 10 mg tablet Take 1 tablet every day by oral route. No 1 Q1D cetirizine 10 mg tablet Take 1 tablet every day by oral route. [facility] FeroSul 325 mg (65 mg iron) tablet TAKE 1 TABLET BY MOUTH TWICE DAILY FeroSul 325 mg (65 mg iron) tablet TAKE 1 TABLET BY MOUTH TWICE DAILY No FeroSul 325 mg (65 mg iron) tablet TAKE 1 TABLET BY MOUTH TWICE DAILY [facility] fluticasone propionate 50 mcg/actuati on nasal spray,suspe nsion [place] 1 spray every day by intranasal route. fluticasone propionate 50 mcg/actuati on nasal spray,suspe nsion [place] 1 spray every day by intranasal route. No fluticason e propionate 50 mcg/actuat ion nasal spray,susp ension [place] 1 spray every day by intranasal route. [facility] Humulin 70/30 U-100 Insulin 50 units daily (if BS is over 120) Humulin 70/30 U-100 Insulin 50 units daily (if BS is over 120) No Humulin 70/30 U-100 Insulin 50 units daily (if BS is over 120) [facility] ibuprofen 800 mg tablet Take 1 tablet twice a day by oral route as needed for 30 days. ibuprofen 800 mg tablet Take 1 tablet twice a day by oral route as needed for 30 days. No ibuprofen 800 mg tablet Take 1 tablet twice a day by oral route as needed for 30 days. [facility] lisinopril 20 mg-hydrochl orothiazide 25 mg tablet TAKE 1 TABLET BY MOUTH ONCE DAILY IN THE MORNING lisinopril 20 mg-hydrochl orothiazide 25 mg tablet TAKE 1 TABLET BY MOUTH ONCE DAILY IN THE MORNING No lisinopril 20 mg-hydroch lorothiazi de 25 mg tablet TAKE 1 TABLET BY MOUTH ONCE DAILY IN THE MORNING [facility] lovastatin 20 mg tablet Take 1 tablet every day by oral route in the evening. lovastatin 20 mg tablet Take 1 tablet every day by oral route in the evening. No 1 Q1D lovastatin 20 mg tablet Take 1 tablet every day by oral route in the evening. [facility] metformin 1,000 mg tablet TAKE 1 TABLET BY MOUTH TWICE DAILY BEFORE MEAL(S) metformin 1,000 mg tablet TAKE 1 TABLET BY MOUTH TWICE DAILY BEFORE MEAL(S) No metformin 1,000 mg tablet TAKE 1 TABLET BY MOUTH TWICE DAILY BEFORE MEAL(S) [facility] promethazin e-DM 6.25 mg-15 mg/5 mL oral [...] by oral route as needed. FOR COUGH [facility] amlodipine 10 mg tablet TAKE 1 TABLET BY MOUTH ONCE DAILY DIRECTED FOR 90 DAYS amlodipine 10 mg tablet TAKE 1 TABLET BY MOUTH ONCE DAILY DIRECTED FOR 90 DAYS No amlodipine 10 mg tablet TAKE 1 TABLET BY MOUTH ONCE DAILY DIRECTED FOR 90 DAYS [facility] amlodipine 10 mg tablet TAKE 1 TABLET BY MOUTH ONCE DAILY DIRECTED amlodipine 10 mg tablet TAKE 1 TABLET BY MOUTH ONCE DAILY DIRECTED No amlodipine 10 mg tablet TAKE 1 TABLET BY MOUTH ONCE DAILY DIRECTED [facility] azelastine 205.5 mcg (0.15 %) nasal spray azelastine 205.5 mcg (0.15 %) nasal spray No azelastine 205.5 mcg (0.15 %) nasal spray [facility] azithromyci n 500 mg tablet Take 1 tablet every day by oral route for 5 days. azithromyci n 500 mg tablet Take 1 tablet every day by oral route for 5 days. No 1 Q1D azithromyc in 500 mg tablet Take 1 tablet every day by oral route for 5 days. [facility] cetirizine 10 mg tablet Take 1 tablet every day by oral route. cetirizine 10 mg tablet Take 1 tablet every day by oral route. No 1 Q1D cetirizine 10 mg tablet Take 1 tablet every day by oral route. [facility] FeroSul 325 mg (65 mg iron) tablet TAKE 1 TABLET BY MOUTH TWICE DAILY FeroSul 325 mg (65 mg iron) tablet TAKE 1 TABLET BY MOUTH TWICE DAILY No FeroSul 325 mg (65 mg iron) tablet TAKE 1 TABLET BY MOUTH TWICE DAILY [facility] fluticasone propionate 50 mcg/actuati on nasal spray,suspe nsion [place] 1 spray every day by intranasal route. fluticasone propionate 50 mcg/actuati on nasal spray,suspe nsion [place] 1 spray every day by intranasal route. No fluticason e propionate 50 mcg/actuat ion nasal spray,susp ension [place] 1 spray every day by intranasal route. [facility] Humulin 70/30 U-100 Insulin 50 units daily (if BS is over 120) Humulin 70/30 U-100 Insulin 50 units daily (if BS is over 120) No Humulin 70/30 U-100 Insulin 50 units daily (if BS is over 120) [facility] ibuprofen 800 mg tablet Take 1 tablet twice a day by oral route as needed for 30 days. ibuprofen 800 mg tablet Take 1 tablet twice a day by oral route as needed for 30 days. No ibuprofen 800 mg tablet Take 1 tablet twice a day by oral route as needed for 30 days. [facility] ceftriaxone 1 gram solution for injection Take 1 g by injection route as directed for 1 day. ceftriaxone 1 gram solution for injection Take 1 g by injection route as directed for 1 day. No 1g ceftriaxon e 1 gram solution for injection Take 1 g by injection route as directed for 1 day. [facility] Kenalog 40 mg/mL suspension for injection Take 80 mg by injection route. Kenalog 40 mg/mL suspension for injection Take 80 mg by injection route. No 80mg Kenalog 40 mg/mL suspension for injection Take 80 mg by injection route. [facility] levothyroxi ne 25 mcg tablet TAKE 1 [...] GLASS OF WATER ONE HOUR BEFORE BREAKFAST [facility] lisinopril 20 mg-hydrochl orothiazide 25 mg tablet TAKE 1 TABLET BY MOUTH ONCE DAILY IN THE MORNING lisinopril 20 mg-hydrochl orothiazide 25 mg tablet TAKE 1 TABLET BY MOUTH ONCE DAILY IN THE MORNING No lisinopril 20 mg-hydroch lorothiazi de 25 mg tablet TAKE 1 TABLET BY MOUTH ONCE DAILY IN THE MORNING [facility] lovastatin 20 mg tablet Take 1 tablet every day by oral route in the evening. lovastatin 20 mg tablet Take 1 tablet every day by oral route in the evening. No 1 Q1D lovastatin 20 mg tablet Take 1 tablet every day by oral route in the evening. [facility] metformin 1,000 mg tablet TAKE 1 TABLET BY MOUTH TWICE DAILY BEFORE MEAL(S) metformin 1,000 mg tablet TAKE 1 TABLET BY MOUTH TWICE DAILY BEFORE MEAL(S) No metformin 1,000 mg tablet TAKE 1 TABLET BY MOUTH TWICE DAILY BEFORE MEAL(S) [facility] cholecalcif kourtney (vitamin D3) 1,250 mcg (50,000 unit) capsule TAKE 1 CAPSULE BY MOUTH ONCE A WEEK DIRECTED cholecalcif kourtney (vitamin D3) 1,250 mcg (50,000 unit) capsule TAKE 1 CAPSULE BY MOUTH ONCE A WEEK DIRECTED No cholecalci ferol (vitamin D3) 1,250 mcg (50,000 unit) capsule TAKE 1 CAPSULE BY MOUTH ONCE A WEEK DIRECTED [facility] Humulin R Regular U-100 Insulin 100 unit/mL [...] injection route at bedtime for 30 days. [facility] amlodipine 10 mg tablet TAKE 1 TABLET BY MOUTH ONCE DAILY DIRECTED amlodipine 10 mg tablet TAKE 1 TABLET BY MOUTH ONCE DAILY DIRECTED No amlodipine 10 mg tablet TAKE 1 TABLET BY MOUTH ONCE DAILY DIRECTED [facility] azelastine 205.5 mcg (0.15 %) nasal spray azelastine 205.5 mcg (0.15 %) nasal spray No azelastine 205.5 mcg (0.15 %) nasal spray [facility] ceftriaxone 1 gram solution for injection Take 1 g by injection route. ceftriaxone 1 gram solution for injection Take 1 g by injection route. No 1g ceftriaxon e 1 gram solution for injection Take 1 g by injection route. [facility] cetirizine 10 mg tablet Take 1 tablet every day by oral route. cetirizine 10 mg tablet Take 1 tablet every day by oral route. No 1 Q1D cetirizine 10 mg tablet Take 1 tablet every day by oral route. [facility] ibuprofen 800 mg tablet TAKE 1 TABLET BY MOUTH THREE TIMES DAILY ibuprofen 800 mg tablet TAKE 1 TABLET BY MOUTH THREE TIMES DAILY No ibuprofen 800 mg tablet TAKE 1 TABLET BY MOUTH THREE TIMES DAILY [facility] clopidogrel 75 mg tablet TAKE 1 TABLET BY MOUTH ONCE DAILY clopidogrel 75 mg tablet TAKE 1 TABLET BY MOUTH ONCE DAILY No clopidogre l 75 mg tablet TAKE 1 TABLET BY MOUTH ONCE DAILY [facility] dexamethaso ne sodium phosphate 10 mg/mL injection solution Take 10 mg by injection route. dexamethaso ne sodium phosphate 10 mg/mL injection solution Take 10 mg by injection route. No 10mg dexamethas one sodium phosphate 10 mg/mL injection solution Take 10 mg by injection route. [facility] ferrous sulfate 325 mg (65 mg iron) tablet Take 1 tablet twice a day by oral route for 90 days. ferrous sulfate 325 mg (65 mg iron) tablet Take 1 tablet twice a day by oral route for 90 days. No 1 BID ferrous sulfate 325 mg (65 mg iron) tablet Take 1 tablet twice a day by oral route for 90 days. [facility] fluticasone propionate 50 mcg/actuati on nasal spray,suspe nsion [place] 1 spray every day by intranasal route. fluticasone propionate 50 mcg/actuati on nasal spray,suspe nsion [place] 1 spray every day by intranasal route. No fluticason e propionate 50 mcg/actuat ion nasal spray,susp ension [place] 1 spray every day by intranasal route. [facility] Humulin 70/30 U-100 Insulin 50 units daily (if BS is over 120) Humulin 70/30 U-100 Insulin 50 units daily (if BS is over 120) No Humulin 70/30 U-100 Insulin 50 units daily (if BS is over 120) [facility] ibuprofen 800 mg tablet Take 1 tablet twice a day by oral route as needed. ibuprofen 800 mg tablet Take 1 tablet twice a day by oral route as needed. No 1 BID ibuprofen 800 mg tablet Take 1 tablet twice a day by oral route as needed. [facility] lidocaine (PF) 10 mg/mL (1 %) injection solution Take 2.1 mL by injection route. lidocaine (PF) 10 mg/mL (1 %) injection solution Take 2.1 mL by injection route. No 2.1mL lidocaine (PF) 10 mg/mL (1 %) injection solution Take 2.1 mL by injection route. [facility] lisinopril 20 mg-hydrochl orothiazide 25 mg tablet TAKE 1 TABLET BY MOUTH ONCE DAILY IN THE MORNING lisinopril 20 mg-hydrochl orothiazide 25 mg tablet TAKE 1 TABLET BY MOUTH ONCE DAILY IN THE MORNING No lisinopril 20 mg-hydroch lorothiazi de 25 mg tablet TAKE 1 TABLET BY MOUTH ONCE DAILY IN THE MORNING [facility] lovastatin 20 mg tablet Take 1 tablet every day by oral route in the evening. lovastatin 20 mg tablet Take 1 tablet every day by oral route in the evening. No 1 Q1D lovastatin 20 mg tablet Take 1 tablet every day by oral route in the evening. [facility] metformin 1,000 mg tablet TAKE 1 TABLET BY MOUTH TWICE DAILY BEFORE MEAL(S) metformin 1,000 mg tablet TAKE 1 TABLET BY MOUTH TWICE DAILY BEFORE MEAL(S) No metformin 1,000 mg tablet TAKE 1 TABLET BY MOUTH TWICE DAILY BEFORE MEAL(S) [facility] insulin aspar prt-insulin aspart 100 unit/mL (70-30) [...] us route as directed for 30 days. [facility] promethazin e-DM 6.25 mg-15 mg/5 mL oral [...] by oral route as needed. FOR COUGH [facility] amlodipine 10 mg tablet TAKE 1 TABLET BY MOUTH ONCE DAILY DIRECTED amlodipine 10 mg tablet TAKE 1 TABLET BY MOUTH ONCE DAILY DIRECTED No amlodipine 10 mg tablet TAKE 1 TABLET BY MOUTH ONCE DAILY DIRECTED [facility] lidocaine (PF) 10 mg/mL (1 %) injection solution Take 2.1 mL by injection route as directed for 1 day. lidocaine (PF) 10 mg/mL (1 %) injection solution Take 2.1 mL by injection route as directed for 1 day. No 2.1mL lidocaine (PF) 10 mg/mL (1 %) injection solution Take 2.1 mL by injection route as directed for 1 day. [facility] azelastine 205.5 mcg (0.15 %) nasal spray azelastine 205.5 mcg (0.15 %) nasal spray No azelastine 205.5 mcg (0.15 %) nasal spray [facility] cefdinir 300 mg capsule Take 1 capsule every 12 hours by oral route for 10 days. cefdinir 300 mg capsule Take 1 capsule every 12 hours by oral route for 10 days. No 1capsul e(s) Q12H cefdinir 300 mg capsule Take 1 capsule every 12 hours by oral route for 10 days. [facility] ceftriaxone 1 gram solution for injection Take 1 g by injection route. ceftriaxone 1 gram solution for injection Take 1 g by injection route. No 1g ceftriaxon e 1 gram solution for injection Take 1 g by injection route. [facility] cetirizine 10 mg tablet Take 1 tablet every day by oral route. cetirizine 10 mg tablet Take 1 tablet every day by oral route. No 1 Q1D cetirizine 10 mg tablet Take 1 tablet every day by oral route. [facility] clopidogrel 75 mg tablet TAKE 1 TABLET BY MOUTH ONCE DAILY clopidogrel 75 mg tablet TAKE 1 TABLET BY MOUTH ONCE DAILY No clopidogre l 75 mg tablet TAKE 1 TABLET BY MOUTH ONCE DAILY [facility] ferrous sulfate 325 mg (65 mg iron) tablet Take 1 tablet twice a day by oral route for 90 days. ferrous sulfate 325 mg (65 mg iron) tablet Take 1 tablet twice a day by oral route for 90 days. No 1 BID ferrous sulfate 325 mg (65 mg iron) tablet Take 1 tablet twice a day by oral route for 90 days. [facility] fluticasone propionate 50 mcg/actuati on nasal spray,suspe nsion [place] 1 spray every day by intranasal route. fluticasone propionate 50 mcg/actuati on nasal spray,suspe nsion [place] 1 spray every day by intranasal route. No fluticason e propionate 50 mcg/actuat ion nasal spray,susp ension [place] 1 spray every day by intranasal route. [facility] Humulin 70/30 U-100 Insulin 50 units daily (if BS is over 120) Humulin 70/30 U-100 Insulin 50 units daily (if BS is over 120) No Humulin 70/30 U-100 Insulin 50 units daily (if BS is over 120) [facility] ibuprofen 800 mg tablet Take 1 tablet twice a day by oral route as needed. ibuprofen 800 mg tablet Take 1 tablet twice a day by oral route as needed. No 1 BID ibuprofen 800 mg tablet Take 1 tablet twice a day by oral route as needed. [facility] lidocaine (PF) 10 mg/mL (1 %) injection solution Take 2.1 mL by injection route. lidocaine (PF) 10 mg/mL (1 %) injection solution Take 2.1 mL by injection route. No 2.1mL lidocaine (PF) 10 mg/mL (1 %) injection solution Take 2.1 mL by injection route. [facility] lisinopril 20 mg-hydrochl orothiazide 25 mg tablet TAKE 1 TABLET BY MOUTH ONCE DAILY IN THE MORNING lisinopril 20 mg-hydrochl orothiazide 25 mg tablet TAKE 1 TABLET BY MOUTH ONCE DAILY IN THE MORNING No lisinopril 20 mg-hydroch lorothiazi de 25 mg tablet TAKE 1 TABLET BY MOUTH ONCE DAILY IN THE MORNING [facility] lisinopril 20 mg-hydrochl orothiazide 25 mg tablet TAKE 1 TABLET BY MOUTH ONCE DAILY IN THE MORNING lisinopril 20 mg-hydrochl orothiazide 25 mg tablet TAKE 1 TABLET BY MOUTH ONCE DAILY IN THE MORNING No lisinopril 20 mg-hydroch lorothiazi de 25 mg tablet TAKE 1 TABLET BY MOUTH ONCE DAILY IN THE MORNING [facility] lovastatin 20 mg tablet Take 1 tablet every day by oral route in the evening. lovastatin 20 mg tablet Take 1 tablet every day by oral route in the evening. No 1 Q1D lovastatin 20 mg tablet Take 1 tablet every day by oral route in the evening. [facility] metformin 1,000 mg tablet TAKE 1 TABLET BY MOUTH TWICE DAILY BEFORE MEAL(S) metformin 1,000 mg tablet TAKE 1 TABLET BY MOUTH TWICE DAILY BEFORE MEAL(S) No metformin 1,000 mg tablet TAKE 1 TABLET BY MOUTH TWICE DAILY BEFORE MEAL(S) [facility] promethazin e-DM 6.25 mg-15 mg/5 mL oral [...] by oral route as needed. FOR COUGH [facility] lovastatin 20 mg tablet TAKE 1 TABLET BY MOUTH ONCE DAILY AT BEDTIME FOR 90 DAYS lovastatin 20 mg tablet TAKE 1 TABLET BY MOUTH ONCE DAILY AT BEDTIME FOR 90 DAYS No lovastatin 20 mg tablet TAKE 1 TABLET BY MOUTH ONCE DAILY AT BEDTIME FOR 90 DAYS [facility] metformin 1,000 mg tablet TAKE 1 TABLET BY MOUTH TWICE DAILY BEFORE MEAL(S) metformin 1,000 mg tablet TAKE 1 TABLET BY MOUTH TWICE DAILY BEFORE MEAL(S) No metformin 1,000 mg tablet TAKE 1 TABLET BY MOUTH TWICE DAILY BEFORE MEAL(S) [facility] acetazolami de ER 500 mg capsule,ext ended release acetazolami de ER 500 mg capsule,ext ended release No acetazolam shaneka ER 500 mg capsule,ex tended release [facility] mometasone 50 mcg/actuati on nasal spray [place] 2 sprays every day by intranasal route as directed for 14 days. mometasone 50 mcg/actuati on nasal spray [place] 2 sprays every day by intranasal route as directed for 14 days. No 2spray( s) Q1D mometasone 50 mcg/actuat ion nasal spray [place] 2 sprays every day by intranasal route as directed for 14 days. [facility] amlodipine 10 mg tablet TAKE 1 TABLET BY MOUTH ONCE DAILY DIRECTED amlodipine 10 mg tablet TAKE 1 TABLET BY MOUTH ONCE DAILY DIRECTED No amlodipine 10 mg tablet TAKE 1 TABLET BY MOUTH ONCE DAILY DIRECTED [facility] amoxicillin 875 mg-potassiu m clavulanate 125 mg [...] day by oral route for 7 days. [facility] azelastine 205.5 mcg (0.15 %) nasal spray azelastine 205.5 mcg (0.15 %) nasal spray No azelastine 205.5 mcg (0.15 %) nasal spray [facility] brimonidine 0.2 % eye drops INSTILL 1 DROP INTO RIGHT EYE TWICE DAILY brimonidine 0.2 % eye drops INSTILL 1 DROP INTO RIGHT EYE TWICE DAILY No brimonidin e 0.2 % eye drops INSTILL 1 DROP INTO RIGHT EYE TWICE DAILY [facility] cetirizine 10 mg tablet TAKE 1 TABLET BY MOUTH ONCE DAILY cetirizine 10 mg tablet TAKE 1 TABLET BY MOUTH ONCE DAILY No cetirizine 10 mg tablet TAKE 1 TABLET BY MOUTH ONCE DAILY [facility] clopidogrel 75 mg tablet TAKE 1 TABLET BY MOUTH ONCE DAILY clopidogrel 75 mg tablet TAKE 1 TABLET BY MOUTH ONCE DAILY No clopidogre l 75 mg tablet TAKE 1 TABLET BY MOUTH ONCE DAILY [facility] doxycycline hyclate 100 mg capsule doxycycline hyclate 100 mg capsule No doxycyclin e hyclate 100 mg capsule [facility] ferrous sulfate 325 mg (65 mg iron) tablet Take 1 tablet twice a day by oral route for 90 days. ferrous sulfate 325 mg (65 mg iron) tablet Take 1 tablet twice a day by oral route for 90 days. No 1 BID ferrous sulfate 325 mg (65 mg iron) tablet Take 1 tablet twice a day by oral route for 90 days. [facility] fluticasone propionate 50 mcg/actuati on nasal spray,suspe nsion [place] 1 spray every day by intranasal route. fluticasone propionate 50 mcg/actuati on nasal spray,suspe nsion [place] 1 spray every day by intranasal route. No fluticason e propionate 50 mcg/actuat ion nasal spray,susp ension [place] 1 spray every day by intranasal route. [facility] gentamicin 0.3 % eye drops PLACE 2 DROPS IN AFFECTED EYE(S) FOUR TIMES A DAY FOR 7 DAYS gentamicin 0.3 % eye drops PLACE 2 DROPS IN AFFECTED EYE(S) FOUR TIMES A DAY FOR 7 DAYS No gentamicin 0.3 % eye drops PLACE 2 DROPS IN AFFECTED EYE(S) FOUR TIMES A DAY FOR 7 DAYS [facility] montelukast 10 mg tablet Take 1 tablet every day by oral route as directed for 30 days. montelukast 10 mg tablet Take 1 tablet every day by oral route as directed for 30 days. No 1 Q1D montelukas t 10 mg tablet Take 1 tablet every day by oral route as directed for 30 days. [facility] Humulin 70/30 U-100 Insulin 50 units daily (if BS is over 120) Humulin 70/30 U-100 Insulin 50 units daily (if BS is over 120) No Humulin 70/30 U-100 Insulin 50 units daily (if BS is over 120) [facility] ibuprofen 800 mg tablet TAKE 1 TABLET BY MOUTH TWICE DAILY NEEDED ibuprofen 800 mg tablet TAKE 1 TABLET BY MOUTH TWICE DAILY NEEDED No ibuprofen 800 mg tablet TAKE 1 TABLET BY MOUTH TWICE DAILY NEEDED [facility] lisinopril 20 mg-hydrochl orothiazide 25 mg tablet TAKE 1 TABLET BY MOUTH ONCE DAILY IN THE MORNING lisinopril 20 mg-hydrochl orothiazide 25 mg tablet TAKE 1 TABLET BY MOUTH ONCE DAILY IN THE MORNING No lisinopril 20 mg-hydroch lorothiazi de 25 mg tablet TAKE 1 TABLET BY MOUTH ONCE DAILY IN THE MORNING [facility] lovastatin 10 mg tablet lovastatin 10 mg tablet No lovastatin 10 mg tablet [facility] lovastatin 20 mg tablet Take 1 tablet every day by oral route in the evening. lovastatin 20 mg tablet Take 1 tablet every day by oral route in the evening. No 1 Q1D lovastatin 20 mg tablet Take 1 tablet every day by oral route in the evening. [facility] metformin 1,000 mg tablet TAKE 1 TABLET BY MOUTH TWICE DAILY BEFORE MEAL(S) metformin 1,000 mg tablet TAKE 1 TABLET BY MOUTH TWICE DAILY BEFORE MEAL(S) No metformin 1,000 mg tablet TAKE 1 TABLET BY MOUTH TWICE DAILY BEFORE MEAL(S) [facility] prednisolon e acetate 1 % eye drops,suspe nsion INSTILL 1 DROP INTO RIGHT EYE THREE TIMES DAILY prednisolon e acetate 1 % eye drops,suspe nsion INSTILL 1 DROP INTO RIGHT EYE THREE TIMES DAILY No prednisolo ne acetate 1 % eye drops,susp ension INSTILL 1 DROP INTO RIGHT EYE THREE TIMES DAILY [facility] promethazin e-DM 6.25 mg-15 mg/5 mL oral syrup Take 5 mL every 6-8 hours by oral route as needed. promethazin e-DM 6.25 mg-15 mg/5 mL oral syrup Take 5 mL every 6-8 hours by oral route as needed. No 5mL Q7H promethazi ne-DM 6.25 mg-15 mg/5 mL oral syrup Take 5 mL every 6-8 hours by oral route as needed. [facility] timolol maleate 0.5 % eye drops INSTILL 1 DROP INTO RIGHT EYE TWICE DAILY timolol maleate 0.5 % eye drops INSTILL 1 DROP INTO RIGHT EYE TWICE DAILY No timolol maleate 0.5 % eye drops INSTILL 1 DROP INTO RIGHT EYE TWICE DAILY [facility] Solu-Medrol (PF) 125 mg/2 mL solution for injection Take 125 mg by injection route as directed for 1 day. Solu-Medrol (PF) 125 mg/2 mL solution for injection Take 125 mg by injection route as directed for 1 day. No 125mg Solu-Medro l (PF) 125 mg/2 mL solution for injection Take 125 mg by injection route as directed for 1 day. [facility] amlodipine 10 mg tablet TAKE 1 TABLET BY MOUTH ONCE DAILY DIRECTED amlodipine 10 mg tablet TAKE 1 TABLET BY MOUTH ONCE DAILY DIRECTED No amlodipine 10 mg tablet TAKE 1 TABLET BY MOUTH ONCE DAILY DIRECTED [facility] brimonidine 0.2 % eye drops INSTILL 1 DROP INTO RIGHT EYE TWICE DAILY brimonidine 0.2 % eye drops INSTILL 1 DROP INTO RIGHT EYE TWICE DAILY No brimonidin e 0.2 % eye drops INSTILL 1 DROP INTO RIGHT EYE TWICE DAILY [facility] cetirizine 10 mg tablet TAKE 1 TABLET BY MOUTH ONCE DAILY cetirizine 10 mg tablet TAKE 1 TABLET BY MOUTH ONCE DAILY No cetirizine 10 mg tablet TAKE 1 TABLET BY MOUTH ONCE DAILY [facility] clopidogrel 75 mg tablet TAKE 1 TABLET BY MOUTH ONCE DAILY clopidogrel 75 mg tablet TAKE 1 TABLET BY MOUTH ONCE DAILY No clopidogre l 75 mg tablet TAKE 1 TABLET BY MOUTH ONCE DAILY [facility] fluticasone propionate 50 mcg/actuati on nasal spray,suspe nsion [place] 1 spray every day by intranasal route. fluticasone propionate 50 mcg/actuati on nasal spray,suspe nsion [place] 1 spray every day by intranasal route. No fluticason e propionate 50 mcg/actuat ion nasal spray,susp ension [place] 1 spray every day by intranasal route. [facility] gentamicin 0.3 % eye drops PLACE 2 DROPS IN AFFECTED EYE(S) FOUR TIMES A DAY FOR 7 DAYS gentamicin 0.3 % eye drops PLACE 2 DROPS IN AFFECTED EYE(S) FOUR TIMES A DAY FOR 7 DAYS No gentamicin 0.3 % eye drops PLACE 2 DROPS IN AFFECTED EYE(S) FOUR TIMES A DAY FOR 7 DAYS [facility] Humulin 70/30 U-100 Insulin 50 units daily (if BS is over 120) Humulin 70/30 U-100 Insulin 50 units daily (if BS is over 120) No Humulin 70/30 U-100 Insulin 50 units daily (if BS is over 120) [facility] ibuprofen 800 mg tablet TAKE 1 TABLET BY MOUTH TWICE DAILY NEEDED ibuprofen 800 mg tablet TAKE 1 TABLET BY MOUTH TWICE DAILY NEEDED No ibuprofen 800 mg tablet TAKE 1 TABLET BY MOUTH TWICE DAILY NEEDED [facility] lisinopril 20 mg-hydrochl orothiazide 25 mg tablet TAKE 1 TABLET BY MOUTH ONCE DAILY IN THE MORNING lisinopril 20 mg-hydrochl orothiazide 25 mg tablet TAKE 1 TABLET BY MOUTH ONCE DAILY IN THE MORNING No lisinopril 20 mg-hydroch lorothiazi de 25 mg tablet TAKE 1 TABLET BY MOUTH ONCE DAILY IN THE MORNING [facility] lovastatin 20 mg tablet Take 1 tablet every day by oral route in the evening. lovastatin 20 mg tablet Take 1 tablet every day by oral route in the evening. No 1 Q1D lovastatin 20 mg tablet Take 1 tablet every day by oral route in the evening. [facility] metformin 1,000 mg tablet TAKE 1 TABLET BY MOUTH TWICE DAILY BEFORE MEAL(S) metformin 1,000 mg tablet TAKE 1 TABLET BY MOUTH TWICE DAILY BEFORE MEAL(S) No metformin 1,000 mg tablet TAKE 1 TABLET BY MOUTH TWICE DAILY BEFORE MEAL(S) [facility] promethazin e-DM 6.25 mg-15 mg/5 mL oral [...] by oral route as needed. For Cough [facility] Solu-Medrol (PF) 125 mg/2 mL solution for injection Take 125 mg by injection route. Solu-Medrol (PF) 125 mg/2 mL solution for injection Take 125 mg by injection route. No 125mg Solu-Medro l (PF) 125 mg/2 mL solution for injection Take 125 mg by injection route. [facility] timolol maleate 0.5 % eye drops INSTILL 1 DROP INTO RIGHT EYE TWICE DAILY timolol maleate 0.5 % eye drops INSTILL 1 DROP INTO RIGHT EYE TWICE DAILY No timolol maleate 0.5 % eye drops INSTILL 1 DROP INTO RIGHT EYE TWICE DAILY [facility] Zithromax Z-Jose Antonio 250 mg tablet TAKE [...] ORAL ROUTE ONCE DAILY FOR 4 DAYS [facility] amlodipine 10 mg tablet TAKE 1 TABLET BY MOUTH ONCE DAILY DIRECTED amlodipine 10 mg tablet TAKE 1 TABLET BY MOUTH ONCE DAILY DIRECTED No amlodipine 10 mg tablet TAKE 1 TABLET BY MOUTH ONCE DAILY DIRECTED [facility] brimonidine 0.2 % eye drops INSTILL 1 DROP INTO RIGHT EYE TWICE DAILY brimonidine 0.2 % eye drops INSTILL 1 DROP INTO RIGHT EYE TWICE DAILY No brimonidin e 0.2 % eye drops INSTILL 1 DROP INTO RIGHT EYE TWICE DAILY [facility] cetirizine 10 mg tablet TAKE 1 TABLET BY MOUTH ONCE DAILY cetirizine 10 mg tablet TAKE 1 TABLET BY MOUTH ONCE DAILY No cetirizine 10 mg tablet TAKE 1 TABLET BY MOUTH ONCE DAILY [facility] clopidogrel 75 mg tablet TAKE 1 TABLET BY MOUTH ONCE DAILY clopidogrel 75 mg tablet TAKE 1 TABLET BY MOUTH ONCE DAILY No clopidogre l 75 mg tablet TAKE 1 TABLET BY MOUTH ONCE DAILY [facility] fluticasone propionate 50 mcg/actuati on nasal spray,suspe nsion [place] 1 spray every day by intranasal route. fluticasone propionate 50 mcg/actuati on nasal spray,suspe nsion [place] 1 spray every day by intranasal route. No fluticason e propionate 50 mcg/actuat ion nasal spray,susp ension [place] 1 spray every day by intranasal route. [facility] gentamicin 0.3 % eye drops PLACE 2 DROPS IN AFFECTED EYE(S) FOUR TIMES A DAY FOR 7 DAYS gentamicin 0.3 % eye drops PLACE 2 DROPS IN AFFECTED EYE(S) FOUR TIMES A DAY FOR 7 DAYS No gentamicin 0.3 % eye drops PLACE 2 DROPS IN AFFECTED EYE(S) FOUR TIMES A DAY FOR 7 DAYS [facility] Humulin 70/30 U-100 Insulin 50 units daily (if BS is over 120) Humulin 70/30 U-100 Insulin 50 units daily (if BS is over 120) No Humulin 70/30 U-100 Insulin 50 units daily (if BS is over 120) [facility] ibuprofen 800 mg tablet TAKE 1 TABLET BY MOUTH TWICE DAILY NEEDED ibuprofen 800 mg tablet TAKE 1 TABLET BY MOUTH TWICE DAILY NEEDED No ibuprofen 800 mg tablet TAKE 1 TABLET BY MOUTH TWICE DAILY NEEDED [facility] lisinopril 20 mg-hydrochl orothiazide 25 mg tablet TAKE 1 TABLET BY MOUTH ONCE DAILY IN THE MORNING lisinopril 20 mg-hydrochl orothiazide 25 mg tablet TAKE 1 TABLET BY MOUTH ONCE DAILY IN THE MORNING No lisinopril 20 mg-hydroch lorothiazi de 25 mg tablet TAKE 1 TABLET BY MOUTH ONCE DAILY IN THE MORNING [facility] lovastatin 20 mg tablet Take 1 tablet every day by oral route in the evening. lovastatin 20 mg tablet Take 1 tablet every day by oral route in the evening. No 1 Q1D lovastatin 20 mg tablet Take 1 tablet every day by oral route in the evening. [facility] metformin 1,000 mg tablet TAKE 1 TABLET BY MOUTH TWICE DAILY BEFORE MEAL(S) metformin 1,000 mg tablet TAKE 1 TABLET BY MOUTH TWICE DAILY BEFORE MEAL(S) No metformin 1,000 mg tablet TAKE 1 TABLET BY MOUTH TWICE DAILY BEFORE MEAL(S) [facility] promethazin e-DM 6.25 mg-15 mg/5 mL oral syrup TAKE 5 ML BY MOUTH EVERY 6 TO 8 HOURS NEEDED promethazin e-DM 6.25 mg-15 mg/5 mL oral syrup TAKE 5 ML BY MOUTH EVERY 6 TO 8 HOURS NEEDED No promethazi ne-DM 6.25 mg-15 mg/5 mL oral syrup TAKE 5 ML BY MOUTH EVERY 6 TO 8 HOURS NEEDED [facility] Solu-Medrol (PF) 125 mg/2 mL solution for injection Take 125 mg by injection route. Solu-Medrol (PF) 125 mg/2 mL solution for injection Take 125 mg by injection route. No 125mg Solu-Medro l (PF) 125 mg/2 mL solution for injection Take 125 mg by injection route. [facility] timolol maleate 0.5 % eye drops INSTILL 1 DROP INTO RIGHT EYE TWICE DAILY timolol maleate 0.5 % eye drops INSTILL 1 DROP INTO RIGHT EYE TWICE DAILY No timolol maleate 0.5 % eye drops INSTILL 1 DROP INTO RIGHT EYE TWICE DAILY [facility] Immunizations Ordered Immunization Name Filled Immunization Name Date Status Comments Source COVID-19, mRNA, LNP-S, PF, 100 mcg/0.5 mL dose (Moderna) COVID-19, mRNA, LNP-S, PF, 100 mcg/0.5 mL dose (Moderna) 2021-10-06 00:00:00 Completed [facility] COVID-19, mRNA, LNP-S, PF, 100 mcg/0.5 mL dose (Moderna) COVID-19, mRNA, LNP-S, PF, 100 mcg/0.5 mL dose (Moderna) 2021-10-06 00:00:00 [facility] COVID-19, mRNA, LNP-S, PF, 100 mcg/0.5 mL dose (Moderna) COVID-19, mRNA, LNP-S, PF, 100 mcg/0.5 mL dose (Moderna) 2021-10-06 00:00:00 Completed [facility] COVID-19, mRNA, LNP-S, PF, 100 mcg/0.5 mL dose (Moderna) COVID-19, mRNA, LNP-S, PF, 100 mcg/0.5 mL dose (Moderna) 2021-10-06 00:00:00 Completed [facility] COVID-19, mRNA, LNP-S, PF, 100 mcg/0.5 mL dose (Moderna) COVID-19, mRNA, LNP-S, PF, 100 mcg/0.5 mL dose (Moderna) 2021-10-06 00:00:00 Completed [facility] COVID-19, mRNA, LNP-S, PF, 100 mcg/0.5 mL dose (Moderna) COVID-19, mRNA, LNP-S, PF, 100 mcg/0.5 mL dose (Moderna) 2021-10-06 00:00:00 [facility] COVID-19, mRNA, LNP-S, PF, 100 mcg/0.5 mL dose (Moderna) COVID-19, mRNA, LNP-S, PF, 100 mcg/0.5 mL dose (Moderna) 2021-10-06 00:00:00 [facility] COVID-19, mRNA, LNP-S, PF, 100 mcg/0.5 mL dose (Moderna) COVID-19, mRNA, LNP-S, PF, 100 mcg/0.5 mL dose (Moderna) 2021-10-06 00:00:00 [facility] COVID-19, mRNA, LNP-S, PF, 100 mcg/0.5 mL dose (Moderna) COVID-19, mRNA, LNP-S, PF, 100 mcg/0.5 mL dose (Moderna) 2021-10-06 00:00:00 [facility] COVID-19, mRNA, LNP-S, PF, 100 mcg/0.5 mL dose (Moderna) COVID-19, mRNA, LNP-S, PF, 100 mcg/0.5 mL dose (Moderna) 2021-10-06 00:00:00 Completed [facility] COVID-19, mRNA, LNP-S, PF, 100 mcg/0.5 mL dose (Moderna) COVID-19, mRNA, LNP-S, PF, 100 mcg/0.5 mL dose (Moderna) 2021-10-06 00:00:00 Completed [facility] COVID-19, mRNA, LNP-S, PF, 100 mcg/0.5 mL dose (Moderna) COVID-19, mRNA, LNP-S, PF, 100 mcg/0.5 mL dose (Moderna) 2021-10-06 00:00:00 Completed [facility] COVID-19, mRNA, LNP-S, PF, 100 mcg/0.5 mL dose (Moderna) COVID-19, mRNA, LNP-S, PF, 100 mcg/0.5 mL dose (Moderna) 2021-10-06 00:00:00 Completed [facility] COVID-19, mRNA, LNP-S, PF, 100 mcg/0.5 mL dose (Moderna) COVID-19, mRNA, LNP-S, PF, 100 mcg/0.5 mL dose (Moderna) 2021-10-06 00:00:00 [facility] COVID-19, mRNA, LNP-S, PF, 100 mcg/0.5 mL dose COVID-19, mRNA, LNP-S, PF, 100 mcg/0.5 mL dose 2021-06-01 00:00:00 Completed [facility] COVID-19, mRNA, LNP-S, PF, 100 mcg/0.5 mL dose COVID-19, mRNA, LNP-S, PF, 100 mcg/0.5 mL dose 2021-06-01 00:00:00 Completed [facility] COVID-19, mRNA, LNP-S, PF, 100 mcg/0.5 mL dose COVID-19, mRNA, LNP-S, PF, 100 mcg/0.5 mL dose 2021-06-01 00:00:00 Completed [facility] COVID-19, mRNA, LNP-S, PF, 100 mcg/0.5 mL dose (Moderna) COVID-19, mRNA, LNP-S, PF, 100 mcg/0.5 mL dose (Moderna) 2021-06-01 00:00:00 Completed [facility] COVID-19, mRNA, LNP-S, PF, 100 mcg/0.5 mL dose (Moderna) COVID-19, mRNA, LNP-S, PF, 100 mcg/0.5 mL dose (Moderna) 2021-06-01 00:00:00 Completed [facility] COVID-19, mRNA, LNP-S, PF, 100 mcg/0.5 mL dose (Moderna) COVID-19, mRNA, LNP-S, PF, 100 mcg/0.5 mL dose (Moderna) 2021-06-01 00:00:00 Completed [facility] COVID-19, mRNA, LNP-S, PF, 100 mcg/0.5 mL dose (Moderna) COVID-19, mRNA, LNP-S, PF, 100 mcg/0.5 mL dose (Moderna) 2021-06-01 00:00:00 Completed [facility] COVID-19, mRNA, LNP-S, PF, 100 mcg/0.5 mL dose (Moderna) COVID-19, mRNA, LNP-S, PF, 100 mcg/0.5 mL dose (Moderna) 2021-06-01 00:00:00 Completed [facility] COVID-19, mRNA, LNP-S, PF, 100 mcg/0.5 mL dose (Moderna) COVID-19, mRNA, LNP-S, PF, 100 mcg/0.5 mL dose (Moderna) 2021-06-01 00:00:00 Completed [facility] COVID-19, mRNA, LNP-S, PF, 100 mcg/0.5 mL dose (Moderna) COVID-19, mRNA, LNP-S, PF, 100 mcg/0.5 mL dose (Moderna) 2021-06-01 00:00:00 Completed [facility] COVID-19, mRNA, LNP-S, PF, 100 mcg/0.5 mL dose (Moderna) COVID-19, mRNA, LNP-S, PF, 100 mcg/0.5 mL dose (Moderna) 2021-06-01 00:00:00 Completed [facility] COVID-19, mRNA, LNP-S, PF, 100 mcg/0.5 mL dose (Moderna) COVID-19, mRNA, LNP-S, PF, 100 mcg/0.5 mL dose (Moderna) 2021-06-01 00:00:00 Completed [facility] COVID-19, mRNA, LNP-S, PF, 100 mcg/0.5 mL dose (Moderna) COVID-19, mRNA, LNP-S, PF, 100 mcg/0.5 mL dose (Moderna) 2021-06-01 00:00:00 Completed [facility] COVID-19, mRNA, LNP-S, PF, 100 mcg/0.5 mL dose (Moderna) COVID-19, mRNA, LNP-S, PF, 100 mcg/0.5 mL dose (Moderna) 2021-06-01 00:00:00 [facility] COVID-19, mRNA, LNP-S, PF, 100 mcg/0.5 mL dose (Moderna) COVID-19, mRNA, LNP-S, PF, 100 mcg/0.5 mL dose (Moderna) 2021-06-01 00:00:00 [facility] COVID-19, mRNA, LNP-S, PF, 100 mcg/0.5 mL dose (Moderna) COVID-19, mRNA, LNP-S, PF, 100 mcg/0.5 mL dose (Moderna) 2021-06-01 00:00:00 Completed [facility] COVID-19, mRNA, LNP-S, PF, 100 mcg/0.5 mL dose (Moderna) COVID-19, mRNA, LNP-S, PF, 100 mcg/0.5 mL dose (Moderna) 2021-06-01 00:00:00 Completed [facility] COVID-19, mRNA, LNP-S, PF, 100 mcg/0.5 mL dose (Moderna) COVID-19, mRNA, LNP-S, PF, 100 mcg/0.5 mL dose (Moderna) Unknown Completed [facility] COVID-19, mRNA, LNP-S, PF, 100 mcg/0.5 mL dose (Moderna) COVID-19, mRNA, LNP-S, PF, 100 mcg/0.5 mL dose (Moderna) Unknown Completed [facility] COVID-19, mRNA, LNP-S, PF, 100 mcg/0.5 mL dose (Moderna) COVID-19, mRNA, LNP-S, PF, 100 mcg/0.5 mL dose (Moderna) Unknown Completed [facility] COVID-19, mRNA, LNP-S, PF, 100 mcg/0.5 mL dose (Moderna) COVID-19, mRNA, LNP-S, PF, 100 mcg/0.5 mL dose (Moderna) Unknown Completed [facility] COVID-19, mRNA, LNP-S, PF, 100 mcg/0.5 mL dose (Moderna) COVID-19, mRNA, LNP-S, PF, 100 mcg/0.5 mL dose (Moderna) Unknown Completed [facility] COVID-19, mRNA, LNP-S, PF, 100 mcg/0.5 mL dose (Moderna) COVID-19, mRNA, LNP-S, PF, 100 mcg/0.5 mL dose (Moderna) Unknown Completed [facility] Vital Signs Vital Name Observation Time Observation Value Comments S ource BP Diastolic 2023-09-27 00:00:00 75 mm[Hg] [facility] Height 2023-09-27 00:00:00 71 [in_i] [facility] BP Systolic 2023-09-27 00:00:00 119 mm[Hg] [facility] BP Diastolic 2023-09-21 00:00:00 69 mm[Hg] [facility] Body Weight 2023-09-21 00:00:00 2972.8 [oz_av] [facility] Height 2023-09-21 00:00:00 71 [in_i] [facility] BP Systolic 2023-09-21 00:00:00 137 mm[Hg] [facility] BMI (Body Mass Index) 2023-09-21 00:00:00 25.9 kg/m2 [facility] BMI (Body Mass Index) 2023-08-18 00:00:00 25.2 kg/m2 [facility] BP Systolic 2023-08-18 00:00:00 141 mm[Hg] [facility] Height 2023-08-18 00:00:00 71 [in_i] [facility] Body Weight 2023-08-18 00:00:00 2892.8 [oz_av] [facility] BP Diastolic 2023-08-18 00:00:00 72 mm[Hg] [facility] BP Diastolic 2023-05-18 00:00:00 79 mm[Hg] [facility] Height 2023-05-18 00:00:00 71 [in_i] [facility] BMI (Body Mass Index) 2023-05-18 00:00:00 26.2 kg/m2 [facility] BP Systolic 2023-05-18 00:00:00 147 mm[Hg] [facility] Body Weight 2023-05-18 00:00:00 3001.6 [oz_av] [facility] BP Diastolic 2023-01-31 00:00:00 74 mm[Hg] [facility] Height 2023-01-31 00:00:00 71 [in_i] [facility] BP Systolic 2023-01-31 00:00:00 153 mm[Hg] [facility] Body Weight 2023-01-31 00:00:00 3036.8 [oz_av] [facility] BP Diastolic 2022-12-15 00:00:00 59 mm[Hg] [facility] Height 2022-12-15 00:00:00 71 [in_i] [facility] BMI (Body Mass Index) 2022-12-15 00:00:00 27.2 kg/m2 [facility] BP Systolic 2022-12-15 00:00:00 154 mm[Hg] [facility] Body Weight 2022-12-15 00:00:00 3120 [oz_av] [facility] BP Diastolic 2022-11-17 00:00:00 63 mm[Hg] [facility] Height 2022-11-17 00:00:00 71 [in_i] [facility] BMI (Body Mass Index) 2022-11-17 00:00:00 27.2 kg/m2 [facility] BP Systolic 2022-11-17 00:00:00 144 mm[Hg] [facility] Body Weight 2022-11-17 00:00:00 3120 [oz_av] [facility] BP Diastolic 2022-11-02 00:00:00 65 mm[Hg] [facility] Height 2022-11-02 00:00:00 71 [in_i] [facility] BMI (Body Mass Index) 2022-11-02 00:00:00 26.9 kg/m2 [facility] BP Systolic 2022-11-02 00:00:00 138 mm[Hg] [facility] Body Weight 2022-11-02 00:00:00 3091.2 [oz_av] [facility] BP Diastolic 2022-09-08 00:00:00 72 mm[Hg] [facility] Height 2022-09-08 00:00:00 71 [in_i] [facility] BMI (Body Mass Index) 2022-09-08 00:00:00 26.4 kg/m2 [facility] BP Systolic 2022-09-08 00:00:00 149 mm[Hg] [facility] Body Weight 2022-09-08 00:00:00 3030.4 [oz_av] [facility] BP Diastolic 2022-07-26 00:00:00 67 mm[Hg] [facility] Height 2022-07-26 00:00:00 71 [in_i] [facility] BMI (Body Mass Index) 2022-07-26 00:00:00 25.8 kg/m2 [facility] BP Systolic 2022-07-26 00:00:00 150 mm[Hg] [facility] Body Weight 2022-07-26 00:00:00 2956.8 [oz_av] [facility] BP Diastolic 2021-10-28 00:00:00 69 mm[Hg] [facility] Height 2021-10-28 00:00:00 71 [in_i] [facility] BMI (Body Mass Index) 2021-10-28 00:00:00 26.2 kg/m2 [facility] BP Systolic 2021-10-28 00:00:00 155 mm[Hg] [facility] Body Weight 2021-10-28 00:00:00 3008 [oz_av] [facility] BP Diastolic 2021-10-07 00:00:00 74 mm[Hg] [facility] Height 2021-10-07 00:00:00 71 [in_i] [facility] BMI (Body Mass Index) 2021-10-07 00:00:00 26.4 kg/m2 [facility] BP Systolic 2021-10-07 00:00:00 159 mm[Hg] [facility] Body Weight 2021-10-07 00:00:00 3027.2 [oz_av] [facility] BP Diastolic 2021-08-05 00:00:00 83 mm[Hg] [facility] Height 2021-08-05 00:00:00 71 [in_i] [facility] BMI (Body Mass Index) 2021-08-05 00:00:00 25.9 kg/m2 [facility] BP Systolic 2021-08-05 00:00:00 154 mm[Hg] [facility] Body Weight 2021-08-05 00:00:00 2969.6 [oz_av] [facility] BP Diastolic 2021-07-03 00:00:00 67 mm[Hg] [facility] Height 2021-07-03 00:00:00 71 [in_i] [facility] BMI (Body Mass Index) 2021-07-03 00:00:00 25.8 kg/m2 [facility] BP Systolic 2021-07-03 00:00:00 131 mm[Hg] [facility] Body Weight 2021-07-03 00:00:00 2956.8 [oz_av] [facility] BP Diastolic 2021-06-22 00:00:00 80 mm[Hg] [facility] Height 2021-06-22 00:00:00 71 [in_i] [facility] BMI (Body Mass Index) 2021-06-22 00:00:00 26.6 kg/m2 [facility] BP Systolic 2021-06-22 00:00:00 129 mm[Hg] [facility] Body Weight 2021-06-22 00:00:00 3048 [oz_av] [facility] BP Diastolic 2021-04-22 00:00:00 83 mm[Hg] [facility] Height 2021-04-22 00:00:00 71 [in_i] [facility] BP Systolic 2021-04-22 00:00:00 171 mm[Hg] [facility] BP Diastolic 2021-04-15 00:00:00 71 mm[Hg] [facility] Height 2021-04-15 00:00:00 71 [in_i] [facility] BMI (Body Mass Index) 2021-04-15 00:00:00 27.1 kg/m2 [facility] BP Systolic 2021-04-15 00:00:00 154 mm[Hg] [facility] Body Weight 2021-04-15 00:00:00 3104 [oz_av] [facility] BP Diastolic 2021-04-01 00:00:00 70 mm[Hg] [facility] Height 2021-04-01 00:00:00 71 [in_i] [facility] BP Systolic 2021-04-01 00:00:00 159 mm[Hg] [facility] BP Diastolic 2021-03-25 00:00:00 75 mm[Hg] [facility] Height 2021-03-25 00:00:00 71 [in_i] [facility] BMI (Body Mass Index) 2021-03-25 00:00:00 27.1 kg/m2 [facility] BP Systolic 2021-03-25 00:00:00 139 mm[Hg] [facility] Body Weight 2021-03-25 00:00:00 3107.2 [oz_av] [facility] BP Diastolic 2020-12-10 00:00:00 78 mm[Hg] [facility] Height 2020-12-10 00:00:00 71 [in_i] [facility] BMI (Body Mass Index) 2020-12-10 00:00:00 27.4 kg/m2 [facility] BP Systolic 2020-12-10 00:00:00 159 mm[Hg] [facility] Body Weight 2020-12-10 00:00:00 3142.4 [oz_av] [facility] Procedures Procedure Date / Time Performed Performing Clinicia n Source Cholecystectomy 2022-04-01 00:00:00 [facility] US, thyroid 2021-04-01 00:00:00 [facility] Partial Hysterectomy [facility] Plan of Care Planned Activity Planned Date Details Comments Source Diagnostic Test Pending 2023-09-21 00:00:00 rapid strep group A, throat [code = rapid strep group A, throat] [facility] Diagnostic Test Pending 2023-09-21 00:00:00 rapid flu (A+B) [code = rapid flu (A+B)] [facility] Future Appointment 2023-11-18 00:00:00 Polina Matt, [address] [place] [address], [address]; , [place] [address] [facility] Instructions [facility] Encounters Start Date/Time End Date/Time Encounter Type Admission Type Attending Clinicians Care Facility Care Department Encounter ID Source 2023-10-11 00:00:00 2023-10-11 00:00:00 Outpatient Jaida [facility] [id number] [facility] 2023-09-27 00:00:00 2023-09-27 00:00:00 Shannan Hernandez APRN-OPERATIONS TEAM LEADER-B C: [address] [facility], [address], [place] [address] , Ph. [facility] [id number] [facility] 2023-09-21 00:00:00 2023-09-21 00:00:00 Polina Matt APRN, MSN, [facility]-BC: [address] [place] [address], [address] [place] [id number] , Ph. [facility] [id number] [facility] 2023-08-28 00:00:00 2023-08-28 00:00:00 Outpatient L_Pena [facility] [id number] [facility] 2023-08-28 00:00:00 2023-08-28 00:00:00 Outpatient L_Pena [facility] [id number] [facility] 2023-08-18 00:00:00 2023-08-18 00:00:00 Polina Matt APRN, MSN, [facility]-BC: [address] [place] [address], [address] [place] [phone] , Ph. [facility] [id number] [facility] 2023-08-14 00:00:00 2023-08-14 00:00:00 Outpatient L_Pena [facility] [id number] [facility] 2023-06-04 00:00:00 2023-06-04 00:00:00 Outpatient L_Pena [facility] [id number] [facility] 2023-05-18 00:00:00 2023-05-18 00:00:00 Polina Matt APRN, MSN, [facility]-: [address] [facility], [address] [facility], [place] [address] , Ph. [facility] [id number] [facility] 2023-04-22 00:00:00 2023-04-22 00:00:00 Outpatient L_Pena [facility] [id number] [facility] 2023-04-22 00:00:00 2023-04-22 00:00:00 Outpatient L_Pena [facility] [id number] [facility] 2023-04-13 09:40:00 2023-04-13 09:40:00 Outpatient YADIEL [facility] [id number] [facility] 2023-03-18 00:00:00 2023-03-18 00:00:00 Outpatient L_Pena [facility] [id number] [facility] 2023-02-13 00:00:00 2023-02-13 00:00:00 Outpatient L_Pena [facility] [id number] [facility] 2023-01-31 00:00:00 2023-01-31 00:00:00 Polina Matt APRN, MSN, [facility]-: [address] [facility], [address] [address] , Ph. [facility] [id number] [facility] 2022-12-15 00:00:00 2022-12-15 00:00:00 Shannan Hernandez APRN-OPERATIONS TEAM LEADER-B C: [address] [facility], [address], [place] [address] , [address] [facility] [place] [id number] [facility] 2022-12-08 00:00:00 2022-12-08 00:00:00 Outpatient L_Pena [facility] [facility] [id number] [facility] 2022-12-08 00:00:00 2022-12-08 00:00:00 Outpatient L_Pena [facility] [id number] [facility] 2022-11-17 00:00:00 2022-11-17 00:00:00 Polina Matt APRN, MSN, OPERATIONS TEAM LEADER-: [address] [place] [address], [address] [place] [phone] , Ph. [facility] [id number] [facility] 2022-11-02 00:00:00 2022-11-02 00:00:00 Outpatient L_[facility]ena [facility] [id number] [facility] 2022-11-02 00:00:00 2022-11-02 00:00:00 Outpatient L[facility] [id number] [facility] 2022-11-02 00:00:00 2022-11-02 00:00:00 Polina Matt APRN, MSN, [facility]-BC: [address] [place] [address], [address] [place] [phone] , Ph. [facility] [id number] [facility] 2022-09-08 00:00:00 2022-09-08 00:00:00 Outpatient L_[facility]ena [facility] [id number] [facility] 2022-09-08 00:00:00 2022-09-08 00:00:00 Polina Matt APRN, MSN, OPERATIONS TEAM LEADER-BC: [address] [place] [address], [address] [place] [phone] , Ph. [facility] [id number] [facility] 2022-07-26 00:00:00 2022-07-26 00:00:00 Outpatient L_[facility]ena [facility] [id number] [facility] 2022-07-26 00:00:00 2022-07-26 00:00:00 Polina Matt APRN, MSN, OPERATIONS TEAM LEADER-: [address] [facility], [address] [place] [phone] , Ph. [facility] [id number] [facility] 2021-10-28 12:01:00 2021-10-28 12:01:00 Outpatient WATERS_S [facility] [id number] [facility] 2021-10-28 00:00:00 2021-10-28 00:00:00 Carlotta Ruiz APRN-RESEARCH AFFILIATE-C: [address] [facility], Suite [facility], [place] [address] , Ph. [facility] [id number] [facility] 2021-10-28 00:00:00 2021-10-28 00:00:00 Outpatient Carlotta Ruiz [facility] [id number] 04:19:00 2021-10-07 04:19:00 Outpatient WATERS_S [facility] [id number] [facility] 2021-10-07 00:00:00 2021-10-07 00:00:00 Carlotta Ruiz APRN-RESEARCH AFFILIATE-C: [address] [place] [address], [address] [place] [phone] , Ph. [facility] [id number] [facility] 2021-10-07 00:00:00 2021-10-07 00:00:00 Outpatient Carlotta Ruiz [facility] [id number] 2021-09-30 10:01:00 2021-09-30 10:01:00 Outpatient WATERS_S [facility] [id number] [facility] 2021-08-05 11:51:00 2021-08-05 11:51:00 Outpatient SCHAUBROECK _L [facility] [id number] [facility] 2021-08-05 00:00:00 2021-08-05 00:00:00 Outpatient OttonielkikaMeryl tucker [facility] [id number] 2021-08-05 00:00:00 2021-08-05 00:00:00 Meryl barlcay AGNP-C: [address] [facility], [address] [address] , Ph. [facility] [id number] [facility] 2021-07-03 12:44:00 2021-07-03 12:44:00 Outpatient SCHAUBROECK _L [facility] [id number] 2021-07-03 00:00:00 2021-07-03 00:00:00 Outpatient OttonielkikaMeryl tucker [facility] [id number] 2021-07-03 00:00:00 2021-07-03 00:00:00 VAHE CooneyP-C: [address] [facility], [address] [address] , Ph. [facility] [id number] [facility] 2021-06-22 06:00:00 2021-06-22 06:00:00 Outpatient SCHAUBROECK _L [facility] [id number] [facility] 2021-06-22 00:00:00 2021-06-22 00:00:00 Outpatient NathanielMeryl chase [facility] [id number] 2021-06-22 00:00:00 2021-06-22 00:00:00 LISA Cooney-C: [address] [place] [address], [address] [place] [phone] , Ph. [facility] [id number] [facility] 2021-04-22 05:46:00 2021-04-22 05:46:00 Outpatient SCHAUBROECK _L [facility] [id number] [facility] 2021-04-22 00:00:00 2021-04-22 00:00:00 Outpatient NathanielMeryl chase [facility] [id number] 2021-04-22 00:00:00 2021-04-22 00:00:00 LISA Cooney-C: [address] [place] [address], [address] [place] [phone] , Ph. [facility] [id number] [facility] 2021-04-15 12:15:00 2021-04-15 12:15:00 Outpatient SCHAUBROECK _L [facility] [id number] [facility] 2021-04-15 00:00:00 2021-04-15 00:00:00 Outpatient Carlotta Ruiz [facility] [id number] 2021-04-15 00:00:00 2021-04-15 00:00:00 Carlotta Ruiz HENRY-C: [address] [place] [address], [address] [address] , Ph. [facility] [id number] [facility] 2021-04-01 11:11:00 2021-04-01 11:11:00 Outpatient SCHAUBROECK _L [facility] [id number] [facility] 2021-04-01 00:00:00 2021-04-01 00:00:00 Meryl barclay [facility]-C: [address] [place] [address], [address] [address] , Ph. [facility] [id number] [facility] 2021-04-01 00:00:00 2021-04-01 00:00:00 Outpatient Walter Meryl Hope [facility] [id number] 2021-04-01 00:00:00 2021-04-01 00:00:00 Outpatient Walter Meryl Hope [facility] [id number] 2021-03-25 11:00:00 2021-03-25 11:00:00 Outpatient SCHAUBROECK _L [facility] [id number] [facility] 2021-03-25 00:00:00 2021-03-25 00:00:00 Outpatient Walter Meryl [facility] [id number] 2021-03-25 00:00:00 2021-03-25 00:00:00 LISA Cooney-C: [address] [facility], [address] [place] [phone] , Ph. [facility] [id number] [facility] 2020-12-16 11:04:00 2020-12-16 11:04:00 Outpatient SCHAUBROECK _L [facility] [id number] [facility] 2020-12-15 10:19:00 2020-12-15 10:19:00 Outpatient SCHAUBROECK _L [facility] [id number] [facility] 2020-12-10 04:21:00 2020-12-10 04:21:00 Outpatient SCHAUBROECK _L [facility] [id number] [facility] 2020-12-10 00:00:00 2020-12-10 00:00:00 Outpatient Meryl Watson [facility] [id number] 2020-12-10 00:00:00 2020-12-10 00:00:00 LISA Cooney-C: 1 [facility], [address] [place] [phone] , Ph. [facility] [id number] [facility] Results Test Description Test Time Test Comments Results Result Co mments Source [facility] ([facility]+B)2023-09-21 11:02:30* Test Item Value Reference Range Interpretation Comme nts FLU A (test code = FLU A) negative FLU B (test code = FLU B) negative [facility] strep group A, [id number] 11:02:22 * Test Item Value Reference Range Interpretation Comme nts Strep (test code = Strep) negative [facility] A, [id number] 11:02:22 * Test Item Value Reference Range Interpretation Comme nts Strep (test code = Strep) negative [facility], [id number] 09:18:00 * Test Item Value Reference Range Interpretation Comme nts Strep (test code = Strep) positive [facility] strep group A, [id number] 09:18:00 * Test Item Value Reference Range Interpretation Comme nts Strep (test code = Strep) positive [facility] strep group A, [id number] 11:21:00 * Test Item Value Reference Range Interpretation Comme nts Strep (test code = Strep) negative [facility] (A+B)2022-11-17 11:21:00* Test Item Value Reference Range Interpretation Comme nts FLU A (test code = FLU A) negative FLU B (test code = FLU B) negative [facility]-2 (COVID-19) Ag [Presence] in Respiratory specimen by Rapid [id number] 11:21:00* Test Item Value Reference Range Interpretation Comme nts SARS CoV 2 (test code = SARS CoV 2) negative [facility] Taylor[facility]inal[facility] macro (dipstick) panel - Urine 2021-10-28 10:30:00* Test Item Value Reference Range Interpretation Comme nts Leukocytes (test code = Leukocytes) Trace Nitrite (test code = Nitrite) negative Urobilinogen (test code = Urobilinogen) .2 Protein (test code = Protein) Negative pH (test code = pH) 5.0 Blood (test code = Blood) Hemolyzed: Trace Specific [place] (test code = Specific [place]) 1.025 Ketone (test code = Ketone) Trace Bilirubin (test code = Bilirubin) Negative Glucose (test code = Glucose) Negative Appearance (test code = Appearance) Cloudy Color (test code = Color) Dark Yellow [facility] W Auto Differential panel - [id number] 00:00:00* Test Item Value Reference Range Interpretation [...] immature cells (test code = immature cells) assistant technician Neutrophils [#/volume] in Bl ood by Automated [...] Blood by Automated count (test code = 12652-7) 0 % not estab. Immature granulocytes [#/volume] in Blood by Automated count (test code = 19257-0) 0.0 x10e3/uL 0.0-0.1 Nucleated erythrocytes/100 leukocytes [Ratio] in Blood by Automated count (test code = 00410-8) assistant technician Morphology [Interpretation] in Blood Narrative (test code = 74298-5) assistant technician [facility] metabolic 2000 panel - Serum or [id number] 00:00:00* Test Item Value Reference Range Interpretation [...] by Creatinine-based formula (CKD-EPI) (test code = 45720-7) 94 mL/min/1.73 >59 Glomerular filtration rate/1.73 sq M.predicted among blacks [Volume Rate/Area] in Serum, Plasma or Blood by Creatinine-based formula (CKD-EPI) (test code = 67906-3) 108 mL/min/1.73 >59 Urea nitrogen/Creatinine [Mass Ratio] [...] in Serum or Plasma (test code = 89261-8) 9.5 mg/dL 8.7-10.3 Protein [Mass/volume] in Serum or Plasma (test code = 2885-2) 7.4 g/dL 6.0-8.5 Albumin [Mass/volume] in Serum or Plasma (test code = 1751-7) 3.9 g/dL 3.8-4.8 Globulin [Mass/volume] in Serum by calculation (test code = 23512-5) 3.5 g/dL 1.5-4.5 Albumin/Globulin [Mass Ratio ] [...] code = 1742-6) 34 IU/L 0-32 H [facility] TaylorIro binding capacity [Mass/volume] in Serum or [id number] 00:00:00* Test Item Value Reference Range Interpretation [...] code = 2502-3) 4 % 15-55 L [facility] TaylorFolate+Cyanocobalamin [Interpretation] in Serum or [id number] 00:00:00* Test Item Value Reference Range Interpretation Comme nts Cobalamin (Vitamin B12) [Mass/volume] in Serum or Plasma (test code = 2132-9) 831 pg/mL 232-1245 Folate [Mass/volume] in Seru m or Plasma (test code = 2284-8) 6.5 NG/mL >3.0 [facility] TaylorHemoglobin A1c/Hemoglobin.total in Blood 2021-10-01 00:00:00* Test Item Value Reference Range Interpretation Comme nts Hemoglobin A1c/Hemoglobin.to braed[place] in Blood (test code = 4548-4) 7.4 % 4.8-5.6 H [facility] TaylorThyroxine (T4) free [Mass/volume] in Serum or [id number] 00:00:00* Test Item Value Reference Range Interpretation Comme nts Thyroxine (T4) free [Mass/vo lume] in Serum or Plasma (test code = 3024-7) 1.45 NG/dL 0.82-1.77 [facility] TaylorThyrotropin [Units/volume] in Serum or Plasma by Detection limit <= 0.005 mIU/[id number] 00:00:00* Test Item Value Reference Range Interpretation Comme nts Thyrotropin [Units/volume] i n Serum or Plasma by Detection limit <= 0.005 mIU/L (test code = 41365-8) 0.558 uIU/mL 0.450-4.500 [facility] W Auto Differential panel - [id number] 00:00:00* Test Item Value Reference Range Interpretation [...] immature cells (test code = immature cells) assistant technician Neutrophils [#/volume] in Bl ood by Automated [...] Blood by Automated count (test code = 11084-2) 0 % not estab. Immature granulocytes [#/volume] in Blood by Automated count (test code = 48148-4) 0.0 x10e3/uL 0.0-0.1 Nucleated erythrocytes/100 leukocytes [Ratio] in Blood by Automated count (test code = 36178-7) assistant technician Morphology [Interpretation] in Blood Narrative (test code = 11113-8) assistant technician [facility] TaylorCom[facility] metabolic 2000 panel - Serum or [id number] 00:00:00* Test Item Value Reference Range Interpretation [...] by Creatinine-based formula (CKD-EPI) (test code = 72660-7) 94 mL/min/1.73 >59 Glomerular filtration rate/1.73 sq M.predicted among blacks [Volume Rate/Area] in Serum, Plasma or Blood by Creatinine-based formula (CKD-EPI) (test code = 10978-1) 108 mL/min/1.73 >59 Urea nitrogen/Creatinine [Mass Ratio] [...] in Serum or Plasma (test code = 98273-5) 9.5 mg/dL 8.7-10.3 Protein [Mass/volume] in Serum or Plasma (test code = 2885-2) 7.4 g/dL 6.0-8.5 Albumin [Mass/volume] in Serum or Plasma (test code = 1751-7) 3.9 g/dL 3.8-4.8 Globulin [Mass/volume] in Serum by calculation (test code = 83760-4) 3.5 g/dL 1.5-4.5 Albumin/Globulin [Mass Ratio ] [...] code = 1742-6) 34 IU/L 0-32 H [facility] TaylorIron binding capacity [Mass/volume] in Serum or [id number] 00:00:00* Test Item Value Reference Range Interpretation [...] code = 2502-3) 4 % 15-55 L [facility] TaylorFolate+Cyanocobalamin [Interpretation] in Serum or [id number] 00:00:00* Test Item Value Reference Range Interpretation Comme nts Cobalamin (Vitamin B12) [Mass/volume] in Serum or Plasma (test code = 2132-9) 831 pg/mL 232-1245 Folate [Mass/volume] in Seru m or Plasma (test code = 2284-8) 6.5 NG/mL >3.0 [facility] TaylorHemoglobin A1c/Hemoglobin.total in Blood 2021-10-01 00:00:00* Test Item Value Reference Range Interpretation Comme nts Hemoglobin A1c/Hemoglobin.to bra[place] in Blood (test code = 4548-4) 7.4 % 4.8-5.6 H [facility] TaylorThyroxine (T4) free [Mass/volume] in Serum or [id number] 00:00:00* Test Item Value Reference Range Interpretation Comme nts Thyroxine (T4) free [Mass/vo lume] in Serum or Plasma (test code = 3024-7) 1.45 NG/dL 0.82-1.77 [facility] TaylorThyrotropin [Units/volume] in Serum or Plasma by Detection limit <= 0.005 mIU/[id number] 00:00:00* Test Item Value Reference Range Interpretation Comme nts Thyrotropin [Units/volume] i n Serum or Plasma by Detection limit <= 0.005 mIU/L (test code = 67092-7) 0.558 uIU/mL 0.450-4.500 [facility] TaylorUrinalysis macro (dipstick) panel - Urine 2021-08-05 10:22:00* Test Item Value Reference Range Interpretation Comme nts Leukocytes (test code = Leukocytes) Trace Nitrite (test code = Nitrite) negative Urobilinogen (test code = Urobilinogen) .2 Protein (test code = Protein) 30 pH (test code = pH) 7.5 Blood (test code = Blood) Negative Specific [place] (test code = Specific [place]) 1.005 Ketone (test code = Ketone) Negative Bilirubin (test code = Bilirubin) Small Glucose (test code = Glucose) Negative Appearance (test code = Appearance) Clear Color (test code = Color) Yellow [facility] TaylorSARS-CoV-2 (COVID-19) Ag [Presence] in Respiratory specimen by Rapid [id number] 16:36:00* Test Item Value Reference Range Interpretation Comme nts SARS CoV 2 (test code = SARS CoV 2) positive [facility] strep group A, [id number] 11:03:00 * Test Item Value Reference Range Interpretation Comme nts Strep (test code = Strep) negative [facility] ([facility]+B)2021-04-15 11:03:00* Test Item Value Reference Range Interpretation Comme nts FLU A (test code = FLU A) positive FLU B (test code = FLU B) negative [facility] TaylorS[facility]-CoV-2 (COVID-19) Ag [Presence] in Respiratory specimen by Rapid [id number] 11:03:00* Test Item Value Reference Range Interpretation Comme nts SARS CoV 2 (test code = SARS CoV 2) negative [facility] strep group A, [id number] 11:03:00 * Test Item Value Reference Range Interpretation Comme nts Strep (test code = Strep) negative [facility] flu (A+B)2021-04-15 11:03:00* Test Item Value Reference Range Interpretation Comme nts FLU A (test code = FLU A) positive FLU B (test code = FLU B) [facility] Ag [Presence] in Respiratory specimen by Rapid [id number] 11:03:00* Test Item Value Reference Range Interpretation Comme nts SARS CoV 2 (test code = SARS CoV 2) negative [facility] Tayloriron + TIBC + ferritin, [id number] 00:00:00* Test Item Value Reference Range Interpretation [...] code = 2276-4) 8 NG/mL 15-150 L [facility] TaylorCB W Auto Differential panel - [id number] 00:00:00* Test Item Value Reference Range Interpretation [...] immature cells (test code = immature cells) assistant technician Neutrophils [#/volume] in Bl ood by Automated [...] Blood by Automated count (test code = 66836-1) 0 % not estab. Immature granulocytes [#/volume] in Blood by Automated count (test code = 65306-5) 0.0 x10e3/uL 0.0-0.1 Nucleated erythrocytes/100 leukocytes [Ratio] in Blood by Automated count (test code = 64851-7) assistant technician Morphology [Interpretation] in Blood Narrative (test code = 21512-4) assistant technician [facility] TaylorFolate+Cyanocobalamin [Interpretation] in Serum or [id number] 00:00:00* Test Item Value Reference Range Interpretation Comme nts Cobalamin (Vitamin B12) [Mass/volume] in Serum or Plasma (test code = 2132-9) 1338 pg/mL 232-1245 H Folate [Mass/volume] in Seru m or Plasma (test code = 2284-8) 9.3 NG/mL >3.0 [facility] TaylorThyroglobulin Ab [Units/volume] in Serum or [id number] 00:00:00* Test Item Value Reference Range Interpretation Comme nts Thyroglobulin Ab [Units/volu me] in Serum (test code = 8098-6) <1.0 0.0-0.9 [facility] TaylorThyroperoxidase Ab [Units/volume] in Serum or [id number] 00:00:00* Test Item Value Reference Range Interpretation Comme nts Thyroperoxidase Ab [Units/vo lume] in Serum (test code = 8099-4) 9 IU/mL 0-34 [facility] W Auto Differential panel - [id number] 00:00:00* Test Item Value Reference Range Interpretation [...] immature cells (test code = immature cells) assistant technician Neutrophils [#/volume] in Bl ood by Automated [...] Blood by Automated count (test code = 20317-2) 0 % not estab. Immature granulocytes [#/volume] in Blood by Automated count (test code = 72773-6) 0.0 x10e3/uL 0.0-0.1 Nucleated erythrocytes/100 leukocytes [Ratio] in Blood by Automated count (test code = 56599-4) assistant technician Morphology [Interpretation] in Blood Narrative (test code = 96197-1) assistant technician [facility] TaylorCom[facility] metabolic 2000 panel - Serum or [id number] 00:00:00* Test Item Value Reference Range Interpretation [...] by Creatinine-based formula (CKD-EPI) (test code = 52956-8) 92 mL/min/1.73 >59 Glomerular filtration rate/1.73 sq M.predicted among blacks [Volume Rate/Area] in Serum, Plasma or Blood by Creatinine-based formula (CKD-EPI) (test code = 84435-9) 106 mL/min/1.73 >59 Urea nitrogen/Creatinine [Mass Ratio] [...] in Serum or Plasma (test code = 44921-5) 9.5 mg/dL 8.7-10.3 Protein [Mass/volume] in Serum or Plasma (test code = 2885-2) 7.7 g/dL 6.0-8.5 Albumin [Mass/volume] in Serum or Plasma (test code = 175-7) 4.1 g/dL 3.8-4.8 Globulin [Mass/volume] in Serum by calculation (test code = 41911-5) 3.6 g/dL 1.5-4.5 Albumin/Globulin [Mass Ratio ] [...] (test code = 1742-6) 32 IU/L 0-32 [facility]icsLip[facility] panel - Serum or [id number] 00:00:00* Test Item Value Reference Range Interpretation [...] or Plasma by calculation (test code = 71937-6) 15 mg/dL 5-40 Cholesterol in LDL [Mass/vol ume] in Serum or Plasma by calculation (test code = 91872-8) 93 mg/dL 0-99 Laboratory comment [Text] in Report Narrative (test code = 84410-4) assistant technician Cholesterol in LDL/Cholester ol in HDL [Mass Ratio] in Serum or Plasma (test code = 81123-8) 1.6 ratio 0.0-3.2 [facility] TaylorAlbumin/Creatinine [Mass Ratio] in Urine 2021-03-26 00:00:00* Test Item Value Reference Range Interpretation Comme nts Creatinine [Mass/volume] in Urine (test code = 2161-8) 251.3 mg/dL not estab. Microalbumin [Mass/volume] i n Urine (test code = 28924-7) 19.5 ug/mL not estab. Albumin/Creatinine [Mass rat io] in Urine (test code = 9318-7) 8 mg/g creat 0-29 [facility] TaylorThyroxine (T4) free [Mass/volume] in Serum or [id number] 00:00:00* Test Item Value Reference Range Interpretation Comme nts Thyroxine (T4) free [Mass/vo lume] in Serum or Plasma (test code = 3024-7) 1.61 NG/dL 0.82-1.77 [facility] TaylorThyrotropin [Units/volume] in Serum or Plasma by Detection limit <= 0.005 mIU/[id number] 00:00:00* Test Item Value Reference Range Interpretation Comme nts Thyrotropin [Units/volume] i n Serum or Plasma by Detection limit <= 0.005 mIU/L (test code = 80837-2) 0.434 uIU/mL 0.450-4.500 L [facility] Taylor25-Hydroxyvitamin D3+25-Hydroxyvitamin D2 [Mass/volume] in Serum or [id number] 00:00:00* Test Item Value Reference Range Interpretation Comme nts 25-Hydroxyvitamin D3+25-Hydroxyvitamin D2 [Mass/volume] in Serum or Plasma (test code = 88084-3) 34.8 NG/mL 30.0-100.0 [facility] W Auto Differential panel - [id number] 00:00:00* Test Item Value Reference Range Interpretation [...] immature cells (test code = immature cells) assistant technician Neutrophils [#/volume] in Bl ood by Automated [...] Blood by Automated count (test code = 17484-9) 0 % not estab. Immature granulocytes [#/volume] in Blood by Automated count (test code = 99245-5) 0.0 x10e3/uL 0.0-0.1 Nucleated erythrocytes/100 leukocytes [Ratio] in Blood by Automated count (test code = 47628-9) assistant technician Morphology [Interpretation] in Blood Narrative (test code = 68689-6) assistant technician [facility] TaylorCom[facility] metabolic 2000 panel - Serum or [id number] 00:00:00* Test Item Value Reference Range Interpretation [...] by Creatinine-based formula (CKD-EPI) (test code = 31979-5) 92 mL/min/1.73 >59 Glomerular filtration rate/1.73 sq M.predicted among blacks [Volume Rate/Area] in Serum, Plasma or Blood by Creatinine-based formula (CKD-EPI) (test code = 47004-0) 106 mL/min/1.73 >59 Urea nitrogen/Creatinine [Mass Ratio] [...] in Serum or Plasma (test code = 17895-4) 9.5 mg/dL 8.7-10.3 Protein [Mass/volume] in Serum or Plasma (test code = 2885-2) 7.7 g/dL 6.0-8.5 Albumin [Mass/volume] in Serum or Plasma (test code = 175-7) 4.1 g/dL 3.8-4.8 Globulin [Mass/volume] in Serum by calculation (test code = 86575-1) 3.6 g/dL 1.5-4.5 Albumin/Globulin [Mass Ratio ] [...] (test code = 1742-6) 32 IU/L 0-32 [facility]ics[facility] 1996 panel - Serum or [id number] 00:00:00* Test Item Value Reference Range Interpretation Comme nts Cholesterol [Mass/volume] in Serum or Plasma (test code = 2092-) 168 mg/dL 100-199 Triglyceride [Mass/volume] i n Serum or Plasma (test code = 2571-8) 77 mg/dL 0-149 Cholesterol in HDL [Mass/vol ume] in Serum or Plasma (test code = 2084-9) 60 mg/dL >39 Cholesterol in VLDL [Mass/vo lume] in Serum or Plasma by calculation (test code = 39248-5) 15 mg/dL 5-40 Cholesterol in LDL [Mass/vol ume] in Serum or Plasma by calculation (test code = 16635-0) 93 mg/dL 0-99 Laboratory comment [Text] in Report Narrative (test code = 87428-1) assistant technician Cholesterol in LDL/Cholester ol in HDL [Mass Ratio] in Serum or Plasma (test code = 01346-1) 1.6 ratio 0.0-3.2 [facility] Ratio] in Urine 2021-03-26 00:00:00* Test Item Value Reference Range Interpretation Comme nts Creatinine [Mass/volume] in Urine (test code = 2161-8) 251.3 mg/dL not estab. Microalbumin [Mass/volume] i n Urine (test code = 22478-2) 19.5 ug/mL not estab. Albumin/Creatinine [Mass rat io] in Urine (test code = 9318-7) 8 mg/g creat 0-29 [facility]T4[facility] free [Mass/volume] in Serum or [id number] 00:00:00* Test Item Value Reference Range Interpretation Comme nts Thyroxine (T4) free [Mass/vo lume] in Serum or Plasma (test code = 3024-7) 1.61 NG/dL 0.82-1.77 [facility] [Units/volume] in Serum or Plasma by Detection limit <= 0.005 mIU/[id number] 00:00:00* Test Item Value Reference Range Interpretation Comme nts Thyrotropin [Units/volume] i n Serum or Plasma by Detection limit <= 0.005 mIU/L (test code = 35490-2) 0.434 uIU/mL 0.450-4.500 L [facility] [id number]-Dtlzjknmpylrdb D3+25-Hydroxyvitamin D2 [Mass/volume] in Serum or [id number] 00:00:00* Test Item Value Reference Range Interpretation Comme nts 25-Hydroxyvitamin D3+25-Hydroxyvitamin D2 [Mass/volume] in Serum or Plasma (test code = 95280-4) 34.8 NG/mL 30.0-100.0 [facility] W Auto Differential panel - [id number] 00:00:00* Test Item Value Reference Range Interpretation [...] immature cells (test code = immature cells) assistant technician Neutrophils [#/volume] in Bl ood by Automated [...] Blood by Automated count (test code = 73952-8) 0 % not estab. Immature granulocytes [#/volume] in Blood by Automated count (test code = 42129-5) 0.0 x10e3/uL 0.0-0.1 Nucleated erythrocytes/100 leukocytes [Ratio] in Blood by Automated count (test code = 29521-6) assistant technician Morphology [Interpretation] in Blood Narrative (test code = 39718-0) assistant technician [facility] 2000 panel - Serum or [id number] 00:00:00* Test Item Value Reference Range Interpretation [...] by Creatinine-based formula (CKD-EPI) (test code = 13815-7) 92 mL/min/1.73 >59 Glomerular filtration rate/1.73 sq M.predicted among blacks [Volume Rate/Area] in Serum, Plasma or Blood by Creatinine-based formula (CKD-EPI) (test code = 80296-7) 106 mL/min/1.73 >59 Urea nitrogen/Creatinine [Mass Ratio] [...] in Serum or Plasma (test code = 25846-6) 9.5 mg/dL 8.7-10.3 Protein [Mass/volume] in Serum or Plasma (test code = 2885-2) 7.7 g/dL 6.0-8.5 Albumin [Mass/volume] in Serum or Plasma (test code = 1751-7) 4.1 g/dL 3.8-4.8 Globulin [Mass/volume] in Serum by calculation (test code = 61955-9) 3.6 g/dL 1.5-4.5 Albumin/Globulin [Mass Ratio ] [...] (test code = 1742-6) 32 IU/L 0-32 [facility]icsLipid 1996 panel - Serum or [id number] 00:00:00* Test Item Value Reference Range Interpretation [...] or Plasma by calculation (test code = 65066-5) 15 mg/dL 5-40 Cholesterol in LDL [Mass/vol ume] in Serum or Plasma by calculation (test code = 12112-4) 93 mg/dL 0-99 Laboratory comment [Text] in Report Narrative (test code = 57737-6) assistant technician Cholesterol in LDL/Cholester ol in HDL [Mass Ratio] in Serum or Plasma (test code = 90207-6) 1.6 ratio 0.0-3.2 [facility] [Mass Ratio] in Urine 2021-03-26 00:00:00* Test Item Value Reference Range Interpretation Comme nts Creatinine [Mass/volume] in Urine (test code = 2161-8) 251.3 mg/dL not estab. Microalbumin [Mass/volume] i n Urine (test code = 70871-7) 19.5 ug/mL not estab. Albumin/Creatinine [Mass rat io] in Urine (test code = 9318-7) 8 mg/g creat 0-29 [facility] ClinicsThyroxine (T4) free [Mass/volume] in Serum or [id number] 00:00:00* Test Item Value Reference Range Interpretation Comme nts Thyroxine (T4) free [Mass/vo lume] in Serum or Plasma (test code = 3024-7) 1.61 NG/dL 0.82-1.77 [facility] ClinicsThyrotropin [Units/volume] in Serum or Plasma by Detection limit <= 0.005 mIU/[id number] 00:00:00* Test Item Value Reference Range Interpretation Comme nts Thyrotropin [Units/volume] i n Serum or Plasma by Detection limit <= 0.005 mIU/L (test code = 49170-7) 0.434 uIU/mL 0.450-4.500 L [facility] Vaemojg68-Kciyhwttpgxojn D3+25-Hydroxyvitamin D2 [Mass/volume] in Serum or [id number] 00:00:00* Test Item Value Reference Range Interpretation Comme nts 25-Hydroxyvitamin D3+25-Hydroxyvitamin D2 [Mass/volume] in Serum or Plasma (test code = 09302-2) 34.8 NG/mL 30.0-100.0 [facility] W Auto Differential panel - [id number] 00:00:00* Test Item Value Reference Range Interpretation [...] immature cells (test code = immature cells) assistant technician Neutrophils [#/volume] in Bl ood by Automated [...] Blood by Automated count (test code = 91132-1) 0 % not estab. Immature granulocytes [#/volume] in Blood by Automated count (test code = 50215-3) 0.0 x10e3/uL 0.0-0.1 Nucleated erythrocytes/100 leukocytes [Ratio] in Blood by Automated count (test code = 75833-6) assistant technician Morphology [Interpretation] in Blood Narrative (test code = 00770-9) assistant technician [facility] 2000 panel - Serum or [id number] 00:00:00* Test Item Value Reference Range Interpretation [...] by Creatinine-based formula (CKD-EPI) (test code = 52131-2) 92 mL/min/1.73 >59 Glomerular filtration rate/1.73 sq M.predicted among blacks [Volume Rate/Area] in Serum, Plasma or Blood by Creatinine-based formula (CKD-EPI) (test code = 08758-1) 106 mL/min/1.73 >59 Urea nitrogen/Creatinine [Mass Ratio] [...] in Serum or Plasma (test code = 96501-5) 9.5 mg/dL 8.7-10.3 Protein [Mass/volume] in Serum or Plasma (test code = 2885-2) 7.7 g/dL 6.0-8.5 Albumin [Mass/volume] in Serum or Plasma (test code = 1751-7) 4.1 g/dL 3.8-4.8 Globulin [Mass/volume] in Serum by calculation (test code = 15194-5) 3.6 g/dL 1.5-4.5 Albumin/Globulin [Mass Ratio ] [...] (test code = 1742-6) 32 IU/L 0-32 [facility]icsLipid 1996 panel - Serum or [id number] 00:00:00* Test Item Value Reference Range Interpretation [...] or Plasma by calculation (test code = 78324-2) 15 mg/dL 5-40 Cholesterol in LDL [Mass/vol ume] in Serum or Plasma by calculation (test code = 03333-5) 93 mg/dL 0-99 Laboratory comment [Text] in Report Narrative (test code = 03580-8) assistant technician Cholesterol in LDL/Cholester ol in HDL [Mass Ratio] in Serum or Plasma (test code = 21304-4) 1.6 ratio 0.0-3.2 [facility] [Mass Ratio] in Urine 2021-03-26 00:00:00* Test Item Value Reference Range Interpretation Comme nts Creatinine [Mass/volume] in Urine (test code = 2161-8) 251.3 mg/dL not estab. Microalbumin [Mass/volume] i n Urine (test code = 47277-4) 19.5 ug/mL not estab. Albumin/Creatinine [Mass rat io] in Urine (test code = 9318-7) 8 mg/g creat 0-29 [facility] (T4) free [Mass/volume] in Serum or [id number] 00:00:00* Test Item Value Reference Range Interpretation Comme nts Thyroxine (T4) free [Mass/vo lume] in Serum or Plasma (test code = 3024-7) 1.61 NG/dL 0.82-1.77 [facility] [Units/volume] in Serum or Plasma by Detection limit <= 0.005 mIU/[id number] 00:00:00* Test Item Value Reference Range Interpretation Comme nts Thyrotropin [Units/volume] i n Serum or Plasma by Detection limit <= 0.005 mIU/L (test code = 93020-5) 0.434 uIU/mL 0.450-4.500 L [facility]25-Hydroxyvitamin D3+25-Hydroxyvitamin D2 [Mass/volume] in Serum or [id number] 00:00:00* Test Item Value Reference Range Interpretation Comme nts 25-Hydroxyvitamin D3+25-Hydroxyvitamin D2 [Mass/volume] in Serum or Plasma (test code = 02714-3) 34.8 NG/mL 30.0-100.0 [facility]
[2023-11-08] MEDS ORDERED: NA CHLORIDE 0.9% 1,000 ML ONE (15:29)
[2023-11-08] MEDS ORDERED: ONDANSETRON 4 MG/2 ML VIAL ONE ×3 (15:29→20:43)
[2023-11-08 15:52] LABS: Albumin 2.3 g/dL (3.4-5.0); Bilirubin Total 0.4 mg/dL (0.2-1.0); Protein, Total 7.6 g/dL (6.4-8.2)
[2023-11-08 15:53] LABS: Potassium 3.6 mEq/L (3.5-5.1)
[2023-11-08 16:52] LABS: Specific Gravity > 1.030 (1.005-1.030); Urine Bacteria <20 /HPF (<20); Urine Bilirubin NEGATIVE (Negative); Urine Blood Negative (Negative); Urine Clarity Extremely Turbid (Clear); Urine Color Yellow (Yellow); Urine Glucose NEGATIVE (Negative); Urine Mucus Slight /HPF (None Seen); Urine Protein 1+ (Negative); Urine Urobilinogen Normal (Normal); Urine pH 6.5 (5.0-7.0)
--- NOTE | 2023-11-08 17:14 | RAD REPORT ---
EXAM DESCRIPTION: CT - Abdomen Pelvis W Contrast - 11/08/2023 4:10 pm CLINICAL HISTORY: ABD PAIN COMPARISON: Abdomen Pelvis W Contrast dated 10/12/2023; Abdomen Pelvis W Contrast dated 3; Abdomen Pelvis W Contrast dated 03/31/2022 TECHNIQUE: Thin cut axial CT imaging of the abdomen and pelvis was performed following intravenous a dministration of 100 mL Isovue 300. Multiplanar reformats were generated and reviewed. All CT scans are performed using dose optimization technique as appropriate and may include automated exposure control or mA/KV adjustment according to patient size. FINDINGS: Patchy subsegmental dependent airspace opacities bilaterally, with mild volume loss. Trace left pleural effusion. The liver shows mildly nodular contour. Spleen demonstrates a new wedge-shaped zone of hypointensity along its superior margin. A small rounded 1 cm cystic lesion anteriorly is stable. Adrenal glands, a nd pancreas show no suspicious findings. Gallbladder was surgically removed. . Symmetric renal function is seen with no hydronephrosis or suspicious renal mass. Multiple subcentime ter hypoattenuating lesions, difficult to characterize. No dilated bowel loops or bowel wall thickening. No free air. Large volume of free ascitis, increased since the prior exam. Parietal perineum shows fluid-like enhancement in the pelvis, subhepatic space , and left subdiaphragmatic region. Status post hysterectomy. Fat stranding throughout the omentum, n onspecific, without appreciable nodular thickening or enhancement. No hernia, or bulky lymphadenopath y. The urinary bladder is without significant finding. No suspicious bony findings. IMPRESSION: Progressive free ascites, now with large volume. Mild film like parietal peritoneum enha ncement, may indicate an underlying infectious etiology versus aseptic peritonitis. Patchy subsegmental dependent bibasilar airspace opacities, may reflect atelectasis or pneumonia. Tra ce left pleural. New small wedge-shaped region of hypoattenuation along the superior margin of the spleen, could relat e to differential enhancement versus a small infarct. Other stable findings as above.
[2023-11-08] MEDS ORDERED: SIMETHICONE 80 MG CHEWABLE TAB ONE (17:42)
--- NOTE | 2023-11-08 18:46 | ER ---
Nurse's Notes [facility] Name: Neela Chan Age: 68 yrs Sex: Female : 1955 Arrival Date: 11/08/2023 Time: 14:53 Bed 13 Private MD: Polina Matt Diagnosis: Nausea with vomiting, unspecified;Diarrhea, unspecified;Lower abdominal pain, unspecified;Other ascites Presentation: 11/08 15:10 Chief complaint: Patient states: she has been sent from Dr. Ni's office for possible ap3 dehydration. patient see's dr ni for iron infusions. patient also complains of nausea and vomiting for approx one week, along with abdominal pain of which she rates as a 6/10 at this time. Coronavirus screen: At this time, the client does not indicate any symptoms associated with coronavirus-19. Ebola Screen: No symptoms or risks identified at this time. Initial Sepsis Screen: Does the patient meet any 2 criteria? No. Patient's initial sepsis screen is negative. Does the patient have a suspected source of infection? Yes: Acute abdominal pain. Risk Assessment: Do you want to hurt yourself or someone else? Patient reports no desire to harm self or others. Onset of symptoms was November 01, 2023. 15:10 Method Of Arrival: Wheelchair ap3 15:10 Acuity: JARED 3 ap3 15:13 Note patient comes from providers office with an IV in place to her left FA. ap3 Triage Assessment: 15:13 General: Appears in no apparent distress. Behavior is calm, cooperative, appropriate ap3 for age. Pain: Complains of pain in abdomen Pain currently is 6 out of 10 on a pain scale. Neuro: Level of Consciousness is awake, alert, obeys commands, Oriented to person, place, time, situation, Appropriate for age. Cardiovascular: Patient's skin is warm and dry. Respiratory: Airway is patent Respiratory effort is even, unlabored, Respiratory pattern is regular, symmetrical. Historical: - Allergies: 15:12 No Known Allergies; ap3 - PMHx: 15:12 diabetes mellitus; Hypercholesterolemia; Hypertensive disorder; ap3 - PSHx: 15:12 hysterectomy; ap3 - Immunization history:: Client reports receiving the 2nd dose of the Covid vaccine. - Social history:: Smoking status: Patient denies any tobacco usage or history of. Screenin:14 Abuse screen: Denies threats or abuse. Nutritional screening: No deficits noted. ap3 Tuberculosis screening: No symptoms or risk factors identified. 15:36 [facility] ED Fall Risk Assessment (Adult) History of falling in the last 3 months, mb9 including since admission No falls in past 3 months (0 pts) Confusion or Disorientation No (0 pts) Intoxicated or Sedated No (0 pts) Impaired Gait No (0 pts) Mobility Assist Device Used No (0 pt) Altered Elimination No (0 pt) Score/Fall Risk Level 0 - 2 = Low Risk Oriented to surroundings, Maintained a safe environment, Educated pt \T\ family on fall prevention, incl call for assistance when getting out of bed. Assessment: 15:35 General: Appears in no apparent distress. Behavior is calm, cooperative. Pain: Denies mb9 pain. Neuro: Jacobo Agitation-Sedation Scale (RASS): 0 - Alert and Calm Level of Consciousness is awake, alert, obeys commands, Oriented to person, place, time, situation, Appropriate for age. Cardiovascular: Patient's skin is warm and dry. Respiratory: Airway is patent Respiratory effort is even, unlabored, Respiratory pattern is regular, symmetrical. GI: Abdomen is round non-distended, Bowel sounds present X 4 quads. Abdomen is tender to palpation X 4 quads. Reports lower abdominal pain, upper abdominal pain, gaseousness, nausea. : No signs and/or symptoms were reported regarding the genitourinary system. EENT: Oral mucosa is dry. Derm: Skin is pink, warm \T\ dry. Musculoskeletal: Range of motion: intact in all extremities. 16:35 Reassessment: No changes from previously documented assessment. Patient and/or family mb9 updated on plan of care and expected duration. Pain level reassessed. Patient is alert, oriented x 3, equal unlabored respirations, skin warm/dry/pink. 17:35 Reassessment: No changes from previously documented assessment. Patient and/or family mb9 updated on plan of care and expected duration. Pain level reassessed. Patient is alert, oriented x 3, equal unlabored respirations, skin warm/dry/pink. 21:16 Reassessment: Continues to have emesis with note copious saliva and spitting Denies la4 nausea. Nausea medication given and IV fluids began. Changed into gown and monitoring continued. No distress noted. GI: Abdomen is round distended, noted to have ascites, Pt is actively vomiting clear brown fluid Reports lower abdominal pain, epigastric pain, abdominal tightness with last bowel movement reported to have been on Tuesday. Denies straining of constipation. Vital Signs: 15:10 BP 115 / 79; Pulse 89; Resp 18; Temp 98; Pulse Ox 94% on R/A; Weight 77.11 kg; Height 5 ap3 ft. 11 in. ; Pain 6/10; 17:08 BP 103 / 71; Pulse 84; Resp 18; Pulse Ox 100% on R/A; mb9 17:31 BP 138 / 73; Pulse 88; Resp 18; Pulse Ox 95% on R/A; mb9 18:12 BP 127 / 74; Pulse 82; Resp 18; Pulse Ox 95% on R/A; mb9 15:10 Body Mass Index 23.71 (77.11 kg, 180.34 cm) ap3 15:10 Pain Scale: Adult ap3 ED Course: 14:56 Patient arrived in ED. mr 14:56 Polina Matt is Private Physician. mr 14:57 [facility] Lu[facility] Walton[facility] kb 14:57 Marcellus Alexis MD is Attending Physician. kb 15:12 Triage completed. ap3 15:14 Arm band placed on right wrist. ap3 15:14 Patient has correct armband on for positive identification. Bed in low position. Call ap3 light in reach. Side rails up X 1. Adult w/ patient. 15:23 Elba Mercado RN is Primary Nurse. mb9 15:29 IV is patent, is intact, with fluids infusing freely, with good blood return. iw 15:36 No provider procedures requiring assistance completed. mb9 16:12 CT Abd/Pelvis - IV Contrast Only In Process Unspecified. EDMS 18:44 Obie Borges MD is Hospitalizing Provider. kb 19:15 Report received from Elba Oswald RN, care assumed at this time. la4 21:18 Provided Education on: need for admission. Medication and plan of care. la4 21:18 Patient admitted, IV remains in place. la4 Administered Medications: 15:35 Drug: NS 0.9% IV 1000 ml IV at 1000 ml once Route: IV; Rate: 1000 ml; Site: left mb9 forearm; 18:31 Follow up: Response: No adverse reaction; IV Status: Completed infusion mb9 15:35 Drug: Ondansetron IVP 4 mg IVP once; over 2 minutes Route: IVP; Site: left forearm; mb9 17:30 Follow up: Response: No adverse reaction mb9 17:47 Drug: Ondansetron IVP 4 mg IVP once; over 2 minutes Route: IVP; Site: left forearm; mb9 18:31 Follow up: Response: No adverse reaction mb9 17:47 Drug: Simethicone PO 240 mg PO once Route: PO; mb9 18:31 Follow up: Response: No adverse reaction mb9 Medication: 15:29 VIS not applicable for this client. iw Outcome: 18:45 Decision to Hospitalize by Provider. kb 21:15 Admitted to Med/surg via stretcher, room 230, with chart, Report called to Irena koo 21:15 Condition: stable 21:15 Instructed on the need for admit, medication usage, Demonstrated understanding of medications, plan of care 21:42 Patient left the ED. jb4 Signatures: Dispatcher [employer] EDMS Ana Luisa Walton, FOOD SERVICE-C FOOD SERVICE-Ckb Elba Sandoval, Reg Reg mr Ami Chan, RN Santi Lanier RN RN jb4 Sarah Zamora RN RN ap3 Breneman, Mary Beth, RN RN mb9 Amanda Isaac, JANINA RN [email or web address] Corrections: (The following items were deleted from the chart) 17:39 17:08 Reassessment: No changes from previously documented assessment. Patient and/or mb9 family updated on plan of care and expected duration. Pain level reassessed. Patient is alert, oriented x 3, equal unlabored respirations, skin warm/dry/pink. mb9 18:13 15:35 GI: Abdomen is round non-distended, Bowel sounds present X 4 quads. Abd is soft mb9 and non tender X 4 quads. Reports nausea, mb9
--- NOTE | 2023-11-08 18:46 | EDPHYS ---
Physician Documentation [facility] Name: Neela Chan Age: 68 yrs Sex: Female : 1955 Arrival Date: 11/08/2023 Time: 14:53 Bed 13 Private MD: Polina Matt ED Physician Marcellus Alexis HPI: 11/08 19:39 This 68 yrs old Black Female presents to ER via Wheelchair with complaints of kb Dehydrated. 19:39 Patient is a 68-year-old female who was sent to patient for dehydration. States she was kb at Dr. Locke's office for an iron infusion when she was told that she was dehydrated, they gave 500 cc of normal saline and told her that she needed to come to the emergency department for more fluids. Patient had CBC done at her parents office, results reviewed. Patient reports lower abdominal pain, nausea, vomiting, diarrhea for the last week. States she has been urinating at least 3 times per day.. Historical: - Allergies: 15:12 No Known Allergies; ap3 - PMHx: 15:12 diabetes mellitus; Hypercholesterolemia; Hypertensive disorder; ap3 - PSHx: 15:12 hysterectomy; ap3 - Immunization history:: Client reports receiving the 2nd dose of the Covid vaccine. - Social history:: Smoking status: Patient denies any tobacco usage or history of. ROS: 19:38 Constitutional: Negative for fever, chills, and weight loss, kb 19:38 Abdomen/GI: Positive for abdominal pain, nausea, vomiting, and diarrhea, 19:38 All other systems are negative, Exam: 19:38 Constitutional: This is a well developed, well nourished patient who is awake, alert, kb and in no acute distress. Head/Face: Normocephalic, atraumatic. ENT: Moist Mucous membranes Cardiovascular: Regular rate Respiratory: Respirations even and unlabored. No increased work of breathing. Talking in full sentences Skin: Warm, dry with normal turgor. Normal color. MS/ Extremity: Pulses equal, no cyanosis. Neurovascular intact. Full, normal range of motion. Neuro: Awake and alert, GCS 15, oriented to person, place, time, and situation. Moves all extremities. Normal gait. 19:38 Abdomen/GI: Inspection: abdomen appears normal, Bowel sounds: normal, Palpation: soft, in all quadrants, mild abdominal tenderness, in the right lower quadrant and left lower quadrant, Vital Signs: 15:10 BP 115 / 79; Pulse 89; Resp 18; Temp 98; Pulse Ox 94% on R/A; Weight 77.11 kg; Height 5 ap3 ft. 11 in. ; Pain 6/10; 17:08 BP 103 / 71; Pulse 84; Resp 18; Pulse Ox 100% on R/A; mb9 17:31 BP 138 / 73; Pulse 88; Resp 18; Pulse Ox 95% on R/A; mb9 18:12 BP 127 / 74; Pulse 82; Resp 18; Pulse Ox 95% on R/A; mb9 15:10 Body Mass Index 23.71 (77.11 kg, 180.34 cm) ap3 15:10 Pain Scale: Adult ap3 MDM: 14:58 Patient medically screened. kb 19:38 Data reviewed: vital signs, nurses notes. kb 19:40 Differential diagnosis: diverticulitis, non-specific abd pain, Colitis, enteritis, kb electrolyte abnormality, dehydration. Consideration of Admission/Observation Patient was admitted/placed on observation. Escalation of care including admission/observation considered. Management of patient was discussed with the following: Hospitalist: Dr. Borges accepts pt for admission. External Records Reviewed: Outpatient labs: cbc from Dr Ni reviewed. Counseling: I had a detailed discussion with the patient and/or guardian regarding the historical points, exam findings, and any diagnostic results supporting the discharge/admit diagnosis, lab results, radiology results, the need for further work-up and treatment in the hospital. 11/08 15:10 Order name: CMP; Complete Time: 15:55 kb 11/08 15:10 Order name: Urinalysis W/Microscopic; Complete Time: 16:58 kb 11/08 17:00 Order name: Urine Culture EDSC 11/08 20:37 Order name: Basic Metabolic Panel EDSC 11/08 20:37 Order name: Basic Metabolic Panel EDSC 11/08 20:37 Order name: CBC with Automated Diff EDMS 11/08 20:37 Order name: CBC with Automated Diff EDSC 11/08 15:10 Order name: CT Abd/Pelvis - IV Contrast Only; Complete Time: 17:20 kb Administered Medications: 15:35 Drug: NS 0.9% IV 1000 ml IV at 1000 ml once Route: IV; Rate: 1000 ml; Site: left mb9 forearm; 18:31 Follow up: Response: No adverse reaction; IV Status: Completed infusion mb9 15:35 Drug: Ondansetron IVP 4 mg IVP once; over 2 minutes Route: IVP; Site: left forearm; mb9 17:30 Follow up: Response: No adverse reaction mb9 17:47 Drug: Ondansetron IVP 4 mg IVP once; over 2 minutes Route: IVP; Site: left forearm; mb9 18:31 Follow up: Response: No adverse reaction mb9 17:47 Drug: Simethicone PO 240 mg PO once Route: PO; mb9 18:31 Follow up: Response: No adverse reaction mb9 Disposition: 11/09 09:45 Co-signature as Attending Physician, Marcellus Alexis MD I reviewed the patient's care rn provided by the Advanced Practice Provider and agree with the diagnosis and treatment plan. Disposition Summary: 11/08/23 18:45 Hospitalization Ordered Notes: Hospitalization Status: Observation kb Provider: Obie Borges [facility] kb Condition: Stable kb Problem: new kb Symptoms: are unchanged kb Bed/Room Type: Standard Room Assignment: 230(11/08/23 20:51) [id number] Diagnosis - Nausea with vomiting, unspecified kb - Diarrhea, unspecified kb - Lower abdominal pain, unspecified kb - Other ascites kb Forms: - Medication Reconciliation Form kb - SBAR form kb - Leadership Thank You Letter kb Signatures: Dispatcher [employer] Ana Luisa Hamilton, PEARL GL[employer] D[employer]ER-C PEAR[employer] D[employer]ER-Joaquínb Marcellus Alexis MD MD rn Prokisch, Amanda, RN RN ap3 Breneman, Mary Beth RN RN mb9 Rhina Triplett [email or web address] Corrections: (The following items were deleted from the chart) 11/08 20:51 18:45 kb [email or web address]
[2023-11-08] MEDS ORDERED: ACETAMINOPHEN 325 MG TABLET PO PRN (20:31)
[2023-11-08] MEDS ORDERED: ONDANSETRON 4 MG/2 ML VIAL IV PRN (20:31)
--- NOTE | 2023-11-08 20:36 | P.HP ---
Certification for Inpatient Patient admitted to: Observation With expected LOS: <2 Midnights Practitioner: I am a practitioner with admitting privileges, knowledge of patient current condition, hospital course, and medical plan of care. Services: Services provided to patient in accordance with Admission requirements found in Title 42 Section 412.3 of the Code of Federal Regulations Patient History Date of Service: 11/09/23 Reason for admission: Persistent nausea, vomiting, volume depletion. History of Present Illness: 68-year-old female patient with medical history significant for diabetes type 2, hypertension, hyperlipidemia, history of reflux esophagitis who came to the ED with complaint of persistent nausea vomiting and found to be volume depleted. She had lab done in the ED read revealed low sodium of 130 and a UA was very concerning for possible UTI. She was given isotonic fluid and antinausea medication however she continued to have persistent nausea and was vomiting so she was admitted for inpatient care. Allergies No Known Allergies Allergy (Unverified 03/31/22 22:21) Home Medications: Amlodipine [Norvasc*] 10 mg DAILY 03/31/22 Hum Insulin NPH/Reg Insulin Hm [Humulin 70-30 Vial] 50 units BID 03/31/22 Lovastatin 20 mg DAILY 03/31/22 Metformin HCl 1,000 mg DAILY 03/31/22 lisinopriL [Lisinopril] 20 mg DAILY 03/31/22 Cetirizine HCl [Zyrtec] 10 PO 09/28/23 Clopidogrel Bisulfate [Plavix] 75 mg PO 09/28/23 Ferrous Sulfate/Folic Acid [Bentivite Bx Tablet] 09/28/23 Amox/Clavulanate [Augmentin 875-125 Tab] 1 tab PO BID 7 Days #14 tab 10/01/23 Codeine/APAP [Tylenol W/Codeine #3 tab] 1 tab PO Q8H PRN #15 tab 10/01/23 Codeine/APAP [Tylenol W/Codeine #3 tab] 1 tab PO Q8HP PRN #15 tab 10/01/23 Glucerna Shake [Glucerna*] 237 ml PO BID #30 can 10/18/23 Hydrocodone 5/APAP 325 [Elsah 5/325*] 1 tab PO Q4H PRN #20 tab 10/18/23 Insulin -Regular Human [Novolin -R*] See Protocol SQ ACHS #15 ml 10/18/23 Ondansetron [Zofran] 4 mg PO Q6H PRN #30 tab 10/18/23 Polyethylene Glycol 3350 [Miralax] 17 gm PO DAILY PRN #30 packet 10/18/23 Senosides [Senokot] 2 tab PO BID #120 tab 10/18/23 LORazepam [Ativan] 0.5 mg PO BID PRN 11/08/23 - Past Medical/Surgical History Diabetic: Yes -: Diabetes type 2insulin-dependent -: Hypertension -: Hyperlipidemia -: Hysterectomy Psychosocial/ Personal History: Patient lives at home with her family - Family History Mother -: Diabetes Father -: Heart disease - Social History Alcohol use: Yes CD- Drugs: No Caffeine use: Yes Review of Systems General: Unremarkable Eyes: Unremarkable ENT: Unremarkable Respiratory: Unremarkable Cardiovascular: Unremarkable Gastrointestinal: Nausea, Vomiting, Abdominal Pain Genitourinary: Unremarkable Musculoskeletal: Unremarkable Integumentary: Unremarkable Neurological: Unremarkable Lymphatics: Unremarkable Physical Examination - Physical Exam General: Alert, Oriented x3 HEENT: Atraumatic Neck: Supple Respiratory: Normal air movement Cardiovascular: Regular rate/rhythm, Normal S1 S2 Gastrointestinal: Tenderness (in lower abdomen) Musculoskeletal: No swelling Neurological: Normal speech - Studies Laboratory Data (last 24 hrs) 11/08/23 15:27 Sodium 130 L Potassium 3.6 BUN 18 Creatinine 0.97 Glucose 225 H Total Bilirubin 0.4 AST 14 L ALT 14 Alkaline Phosphatase 45 Assessment and Plan - Plan Persistent nausea vomiting and concerns for gastritis: Patient has persistent nausea with vomiting episode. She did report taking Tums for reflux symptoms. Will start pantoprazole therapy and add sucralfate for additional symptomatic benefit. Monitor clinical symptomatology closely. UTI: UA is very concerning. Will obtain urine culture and start Rocephin for suspected UTI pending urine culture finalization. Hyponatremia: Sodium is low at 130. Present episode is deemed secondary to vomiting issues and loss of electrolyte from vomitus. Will start sodium chloride infusion for management. Monitor daily labs. Diabetes type 2: Will continue patient on sliding scale insulin and carb restricted diet. [facility] blood glucose checks will be done. Hypertension: Patient has history of hypertension. Will monitor vital signs per unit protocol and continue patient on antihypertensive medication if blood pressure allows. Prophylaxis: Lovenox for DVT prophylaxis CODE STATUS: Full code. Disposition: We will treat patient's multiple medical issues and she will be discharged once she is deemed clinically stable. - Advance Directives Does patient have a Living Will: No Does patient have a Durable POA for Healthcare: No
[2023-11-08] MEDS ORDERED: PROMETHAZINE INJ 25 MG/ML AMP IV ONE (20:52)
[2023-11-08] MEDS ORDERED: PROMETHAZINE INJ 25 MG/ML AMP ONE (21:25)
[2023-11-08] MEDS: NA CHLORIDE 0.9% 1,000 ML IV SCH (22:06)
[2023-11-08] MEDS: INSULIN REGULAR (HUMAN) 100 UNIT/ML SQ SCH (22:06)
[2023-11-08 22:34] VITALS: BMI 24.0
[2023-11-09] MEDS ORDERED: HYDROCODONE/APAP 5/325 MG TAB PO PRN (00:38)
[2023-11-09] MEDS ORDERED: MELATONIN 5 MG TABLET PO ONE (00:38)
[2023-11-09] MEDS ORDERED: MORPHINE 2 MG/ML SYR IM ONE (01:57)
[2023-11-09] MEDS ORDERED: PROMETHAZINE INJ 25 MG/ML AMP IV ONE (01:58)
[2023-11-09] MEDS ORDERED: SODIUM CHLORIDE 0.9% 10ML INJ IV PRN (03:25)
[2023-11-09] MEDS: PANTOPRAZOLE 40 MG INJ IVP SCH ×3 (04:26→19:57)
[2023-11-09] MEDS: NA CHLORIDE 0.9% 1,000 ML IV SCH ×2 (06:07→16:52)
[2023-11-09] MEDS: INSULIN REGULAR (HUMAN) 100 UNIT/ML SQ SCH ×4 (07:30→21:00)
[2023-11-09] MEDS ORDERED: ONDANSETRON 4 MG/2 ML VIAL IV ONE (09:00)
[2023-11-09] MEDS ORDERED: ENOXAPARIN 40 MG/0.4 ML SQ SCH (09:00)
[2023-11-09] MEDS: CEFTRIAXONE 1,000 MG in NA CHLORIDE 0.9% 50 ML IVPB SCH (09:00)
[2023-11-09] MEDS: SUCRALFATE 1 GM TABLET PO SCH ×4 (09:01→19:57)
[2023-11-09] MEDS ORDERED: FENTANYL CITR 100 MCG/2 ML IV PRN (11:13)
[2023-11-09] MEDS: PROMETHAZINE INJ 25 MG/ML AMP IV PRN (11:37)
--- NOTE | 2023-11-09 12:52 | RAD REPORT ---
EXAM DESCRIPTION: US - Paracentesis Proc Guidance - 11/09/2023 12:48 pm CLINICAL HISTORY: Ascites Ascites COMPARISON: Paracentesis Proc Guidance dated 10/13/2023 FINDINGS: Informed consent was obtained and time-out was performed. Patient's abdomen was prepped and draped in the usual sterile fashion. 1% lidocaine was used for loca l anesthetic purposes. A small skin incision was made. A paracentesis catheter was guided into the peroneal cavity under son ographic guidance. Return of straw-colored clear ascitic fluid was noted. A small amount of fluid was sent for requested lab studies. A large volume paracentesis was performed . The patient tolerated the procedure well. IMPRESSION: Successful ultrasound-guided paracentesis. A total of 4.5 liters of ascitic fluid were d rained.
--- NOTE | 2023-11-09 13:25 | RAD REPORT ---
EXAM DESCRIPTION: CT - Angio Aorta For Dissection - 11/09/2023 1:13 pm CLINICAL HISTORY: Chest pain radiating to the back. R O Spleen Infact COMPARISON: Abdomen Pelvis W Contrast dated 11/08/2023 TECHNIQUE: CT angiography of the aorta was performed with MIPs. All CT scans are performed using dose optimization technique as appropriate and may include automated exposure control or mA/KV adjustment according to patient size. FINDINGS: A left aortic arch is present with normal branching pattern of the great vessels.No acute aortic finding is seen such as aneurysm, penetrating ulcer or dissection. The celiac axis, SMA, LETICIA and renal arteries are patent. Thromboembolism is present in the right main as well as right upper lobe and lower lobe arterial tree . There is also thromboembolism in the left upper lobe and posterior left lower lobe pulmonary arteri al branches. Airspace opacity is present in the left lung base with small amount of left pleural flui d. Mild diffuse fatty liver. Cholecystectomy clips.The spleen, pancreas, adrenal glands kidneys are with in normal limits. The volume of ascites is reduced since yesterday's study. Mild fluid pools in the pelvis. There is ed ematous appearance to the omental soft tissue.No pathologic enlarged lymphadenopathy identified. The right lobe of the thyroid is markedly enlarged measuring 5.5 cm in anterior-posterior dimension. IMPRESSION: Bilateral pulmonary embolism is present, greater on the right as detailed. No significant aortic flow abnormality. Large right thyroid lobe mass measuring up to 5.5 cm. Significant reduction in ascites volume. Airspace opacity in the left lung base with small pleural effusion may be infiltrate/pneumonia or les s likely pulmonary infarct. The findings were discussed with Dr. Seymour On 11/09/2023 at 1:20 p.m. by telephone.
[2023-11-09 14:17] LABS: Protime INR 1.45
[2023-11-09] MEDS ORDERED: ENOXAPARIN 80 MG/0.8 ML SQ SCH (15:00)
[2023-11-09 16:26] LABS: Absolute Lymphocytes (CBC) 1.1 K/uL (0.7-4.9); Hematocrit 35.2 % (36.0-45.0); Lymphocytes % 10.4 % (15.3-44.8); MCV 71.1 fL (80-100); MPV 6.8 fL (7.6-11.3); Platelets 468 thou/uL (152-406); RBC Red Blood Cell Count 4.95 M/uL (3.86-4.86)
[2023-11-09 16:39] LABS: Potassium 3.4 mEq/L (3.5-5.1)
[2023-11-09] MEDS: ONDANSETRON 4 MG/2 ML VIAL IV PRN (16:43)
--- NOTE | 2023-11-09 18:56 | P.PN ---
Subjective Date of Service: 11/09/23 Chief Complaint: Persistent nausea, vomiting, volume depletion. Subjective: No new changes Patient continues to complain of vomiting. Patient also reported abdominal distention that is worsening. Review of Systems General: Other (Fatigue) Eyes: Unremarkable ENT: Unremarkable Respiratory: Unremarkable Cardiovascular: Unremarkable Gastrointestinal: Vomiting, Abdominal Pain, Distention Genitourinary: Unremarkable Musculoskeletal: Unremarkable Integumentary: Unremarkable Neurological: Unremarkable Lymphatics: Unremarkable Physical Examination - Vital Signs Temperature: 97.3 F Blood Pressure: 134/65 Pulse: 93 Respirations: 16 Pulse Ox (%): 96 - Physical Exam General: Alert, In no apparent distress, Oriented x3, Cooperative HEENT: Atraumatic, PERRLA, EOMI Neck: Supple, JVD not distended Respiratory: Clear to auscultation bilaterally, Normal air movement Cardiovascular: No edema, Regular rate/rhythm, Normal S1 S2 Capillary refill: <2 Seconds Gastrointestinal: Normal bowel sounds, No tenderness Musculoskeletal: No clubbing, No tenderness Integumentary: No rashes Neurological: Normal speech, Normal tone, Normal affect Lymphatics: No axilla or inguinal lymphadenopathy Assessment And Plan - Plan Interval history. 11/09/2023. Patient seen at bedside. Patient reported episode of vomiting earlier in the day. Patient placed on Phenergan. Abdominal paracentesis resulted in drainage of 4.5 L of acetic fluid. Imaging also indicated bilateral PE. Patient placed on weight-based Lovenox. Echocardiogram pending to assess right heart strain. Imaging indicated a large right thyroid lobe mass measuring up to 5.5 cm. Patient follows up with an outpatient oncologist who is working her up for possible cancer. Patient is unable to provide specifics. Continue supportive care. - Plan Persistent nausea vomiting and concerns for gastritis: Patient has persistent nausea with vomiting episode. She did report taking Tums for reflux symptoms. Will start pantoprazole therapy and add sucralfate for additional symptomatic benefit. Monitor clinical symptomatology closely. UTI: UA is very concerning. Will obtain urine culture and start Rocephin for suspected UTI pending urine culture finalization. Hyponatremia: Sodium is low at 130. Present episode is deemed secondary to vomiting issues and loss of electrolyte from vomitus. Will start sodium chloride infusion for management. Monitor daily labs. Diabetes type 2: Will continue patient on sliding scale insulin and carb restricted diet. [facility] blood glucose checks will be done. Hypertension: Patient has history of hypertension. Will monitor vital signs per unit protocol and continue patient on antihypertensive medication if blood pressure allows. Prophylaxis: Lovenox for DVT prophylaxis Plan to discharge in: Greater than 2 days - Code Status/Comfort Care Code Status Assessed: Yes Physician Review: Patient Assessed, Agree with Above Assessment and Plan Critical Care: No
[2023-11-09] MEDS ORDERED: MORPHINE 2 MG/ML SYR IV ONE (19:30)
[2023-11-09] MEDS: ENOXAPARIN 80 MG/0.8 ML SQ SCH ×2 (19:57→20:00)
[2023-11-10] MEDS: NA CHLORIDE 0.9% 1,000 ML IV SCH ×2 (02:53→13:44)
[2023-11-10] MEDS: INSULIN REGULAR (HUMAN) 100 UNIT/ML SQ SCH ×4 (07:30→20:19)
[2023-11-10] MEDS ORDERED: POTASSIUM CL SA 10 MEQ TAB PO ONE (07:37)
[2023-11-10] MEDS: ENOXAPARIN 80 MG/0.8 ML SQ SCH ×2 (09:00→20:20)
[2023-11-10] MEDS: SUCRALFATE 1 GM TABLET PO SCH ×4 (09:15→20:19)
[2023-11-10] MEDS: CEFTRIAXONE 1,000 MG in NA CHLORIDE 0.9% 50 ML IVPB SCH (09:15)
[2023-11-10] MEDS: PANTOPRAZOLE 40 MG INJ IVP SCH ×2 (09:17→20:19)
[2023-11-10] MEDS: Oxycodone HCl/Acetaminophen 5/325 MG TAB PO PRN ×2 (11:02→17:41)
--- NOTE | 2023-11-10 11:24 | ECHO ---
HEIGHT: 5 ft 11 in WEIGHT: 172 lb 14.4 oz DATE OF STUDY: 11/10/[address]: Adal Seymour 2-DIMENSIONAL: YES M.MODE: YES DOPPLER: YES COLOR FLOW: YES TDS: PORTABLE: YES DEFINITY: BUBBLE STUDY: DIAGNOSIS: PULMONARY EMBOLISM CARDIAC HISTORY: CATHERIZATION: SURGERY: PROSTHETIC VALVE: PACEMAKER: MEASUREMENTS (cm) DIASTOLIC (NORMALS) SYSTOLIC (NORMALS) IVSd 1.1 (0.6-1.2) LA Diam 2.9 (1.9-4.0) LVEF 63% LVIDd 2.1 (3.5-5.7) LVIDs 1.4 (2.0-3.5) %FS 32% LVPWd 1.1 (0.6-1.2) Ao Diam 2.4 (2.0-3.7) 2 DIMENSIONAL ASSESSMENT: RIGHT ATRIUM: NORMAL LEFT ATRIUM: NORMAL RIGHT VENTRICLE: APPEARS NORMAL LEFT VENTRICLE: NORMAL TRICUSPID VALVE: MILD TRICUSPID REGURGITATION MITRAL VALVE: MITRAL ANNULAR CALCIFICATION, NO MITRAL STENOSIS PULMONIC VALVE: NOT WELL SEEN AORTIC VALVE: NORMAL PERICARDIAL EFFUSION: NONE AORTIC ROOT: NORMAL LEFT VENTRICULAR WALL MOTION: NORMAL DOPPLER/COLOR FLOW: SEE BELOW COMMENTS: 1. NORMAL LEFT VENTRICULAR EJECTION FRACTION 60-65% WITH NORMAL WALL MOTION 2. RIGHT VENTRICULAR FUNCTION APPEARS NORMAL (BUT WINDOWS ARE LIMITED FOR ACCURATE EVALUATION) 3. MILD TRICUSPID REGURGITATION 4. PULMONARY HYPERTENSION WITH RIGHT VENTRICULAR SYSTOLIC PRESSURE OF 50-55 mmHg 5. POOR WINDOWS TECHNOLOGIST: MACHELLE CHRISTIE
--- NOTE | 2023-11-10 13:35 | P.DS ---
Admission Date: 11/10/23 Discharge Date: 11/10/23 Reason for Admission: Persistent nausea, vomiting, volume depletion. Brief History of Present Illness: History of Present Illness: 68-year-old female patient with medical history significant for diabetes type 2, hypertension, hyperlipidemia, history of reflux esophagitis who came to the ED with complaint of persistent nausea vomiting and found to be volume depleted. She had lab done in the ED read revealed low sodium of 130 and a UA was very concerning for possible UTI. She was given isotonic fluid and antinausea medication however she continued to have persistent nausea and was vomiting so she was admitted for inpatient care. Hospital Course: This is a pleasant 68-year-old female with a past medical history significant for diabetes type 2, hypertension, mildly hyperlipidemia, GERD, who was admitted to the [facility] on persistent nausea and vomiting, hyponatremia on 11/09/2023 Patient was admitted and treated with PPI and IV fluids. Patient's sodium has come up to normal. On 11/10/2023, patient was seen on morning rounds and deemed medically stable for discharge. Patient was discharged with instructions to schedule follow-up appointments with PCP 3 to 5 days. Prescription Keflex 500 mg p.o. every 8 hours x 5 days sent to the pharmacy .the patient and family members were given the opportunity to ask questions and reported no further questions. Furthermore, all questions were answered to the best of my ability. 1. Please call and schedule a follow-up appointment with your PCP ( [text]) in 3-5 days - Please follow-up with your PCP for medication refills/adjustments <Quinten Askew - Last Filed: 11/10/23 13:37> Admission Date: 11/10/23 Discharge Date: 11/11/23 Hospital Course: Pt seen and examined. I agree with the note by the ENERGY EFFICIENT SITE MANAGER. Ok to discharge pt. <Kuldip Sanchez - Last Filed: 11/11/23 14:42> Disposition: ROUTINE DISCHARGE Discharge Condition: GOOD Vital Signs/Physical Exam: Temp Pulse Resp BP Pulse Ox 98.0 F 88 18 150/78 H 92 11/10/23 08:00 11/10/23 08:00 11/10/23 08:00 11/10/23 08:00 11/10/23 08:00 General: Alert, Oriented x3 HEENT: Atraumatic, Normocephalic Neck: Supple Respiratory: Clear to auscultation bilaterally, Normal air movement Cardiovascular: No edema, Normal pulses Capillary refill: <2 Seconds Gastrointestinal: Normal bowel sounds Musculoskeletal: No clubbing, No swelling Integumentary: No rashes, No breakdown Neurological: Normal gait, Normal speech, Normal tone Laboratory Data at Discharge: WBC 10.80 thou/uL (4.3-10.9) 11/09/23 16:06 Hgb 11.0 g/dL (12.0-15.0) L 11/09/23 16:06 Hct 35.2 % (36.0-45.0) L 11/09/23 16:06 Plt Count 468 thou/uL (152-406) H 11/09/23 16:06 PT 15.8 SECONDS (9.5-12.5) H 11/09/23 13:50 INR 1.45 11/09/23 13:50 Sodium 134 mEq/L (136-145) L D 11/09/23 16:06 Potassium 3.4 mEq/L (3.5-5.1) L 11/09/23 16:06 BUN 11 mg/dL (7-18) 11/09/23 16:06 Creatinine 0.60 mg/dL (0.55-1.02) 11/09/23 16:06 Glucose 171 mg/dL (74-106) H 11/09/23 16:06 Total Bilirubin 0.4 mg/dL (0.2-1.0) 11/08/23 15:27 AST 14 U/L (15-37) L 11/08/23 15:27 ALT 14 U/L (13-56) 11/08/23 15:27 Alkaline Phosphatase 45 U/L (45-117) 11/08/23 15:27 <Quinten Askew - Last Filed: 11/10/23 13:37> Vital Signs/Physical Exam: Temp Pulse Resp BP Pulse Ox 97.5 F 109 H 14 105/60 95 11/11/23 12:00 11/11/23 12:00 11/11/23 12:00 11/11/23 12:00 11/11/23 12:00 Laboratory Data at Discharge: WBC 13.60 thou/uL (4.3-10.9) H 11/11/23 11:17 Hgb 10.9 g/dL (12.0-15.0) L 11/11/23 11:17 Hct 34.9 % (36.0-45.0) L 11/11/23 11:17 Plt Count 394 thou/uL (152-406) 11/11/23 11:17 PT 15.8 SECONDS (9.5-12.5) H 11/09/23 13:50 INR 1.45 11/09/23 13:50 Sodium 134 mEq/L (136-145) L 11/11/23 11:17 Potassium 3.5 mEq/L (3.5-5.1) 11/11/23 11:17 BUN 7 mg/dL (7-18) 11/11/23 11:17 Creatinine 0.60 mg/dL (0.55-1.02) 11/11/23 11:17 Glucose 185 mg/dL (74-106) H 11/11/23 11:17 Total Bilirubin 0.4 mg/dL (0.2-1.0) 11/08/23 15:27 AST 14 U/L (15-37) L 11/08/23 15:27 ALT 14 U/L (13-56) 11/08/23 15:27 Alkaline Phosphatase 45 U/L (45-117) 11/08/23 15:27 <Kuldip Sanchez - Last Filed: 11/11/23 14:42> Diet: Regular Activity: Ad azeb Physician Review: Patient Assessed, Agree with Above Assessment and Plan Time spent managing pt's care (in minutes): 55 (minutes) <Quinten Askew - Last Filed: 11/10/23 13:37> <Kuldip Snachez - Last Filed: 11/11/23 14:42> Home Medications: Amlodipine [Norvasc*] 10 mg DAILY 03/31/22 Hum Insulin NPH/Reg Insulin Hm [Humulin 70-30 Vial] 50 units BID 03/31/22 Lovastatin 20 mg DAILY 03/31/22 Metformin HCl 1,000 mg DAILY 03/31/22 lisinopriL [Lisinopril] 20 mg DAILY 03/31/22 Cetirizine HCl [Zyrtec] 10 PO 09/28/23 Clopidogrel Bisulfate [Plavix] 75 mg PO 09/28/23 Ferrous Sulfate/Folic Acid [Bentivite Bx Tablet] 09/28/23 Amox/Clavulanate [Augmentin 875-125 Tab*] 1 tab PO BID 7 Days #14 tab 10/01/23 Codeine/APAP [Tylenol #3*] 1 tab PO Q8H PRN #15 tab 10/01/23 Codeine/APAP [Tylenol #3*] 1 tab PO Q8HP PRN #15 tab 10/01/23 Glucerna Shake [Glucerna*] 237 ml PO BID #30 can 10/18/23 Hydrocodone 5/APAP 325 [Hyder 5/325*] 1 tab PO Q4H PRN #20 tab 10/18/23 Insulin -Regular Human [Novolin -R*] See Protocol SQ ACHS #15 ml 10/18/23 Ondansetron [Zofran (Odt)*] 4 mg PO Q6H PRN #30 tab 10/18/23 Polyethylene Glycol 3350 [Miralax] 17 gm PO DAILY PRN #30 packet 10/18/23 Senosides [Senokot*] 2 tab PO BID #120 tab 10/18/23 LORazepam [Ativan*] 0.5 mg PO BID PRN 11/08/23 Cephalexin [Keflex] 500 mg PO Q8HR 5 Days #15 cap 11/10/23 Cephalexin [Keflex] 500 mg PO Q8HR 5 Days #15 cap 11/10/23 New Medications: Cephalexin [Keflex] 500 mg PO Q8HR 5 Days #15 cap Cephalexin [Keflex] 500 mg PO Q8HR 5 Days #15 cap Physician Discharge Instructions: This is a pleasant 68-year-old female with a past medical history significant for diabetes type 2, hypertension, mildly hyperlipidemia, GERD, who was admitted to the [facility] on persistent nausea and vomiting, hyponatremia on 11/09/2023 Patient was admitted and treated with PPI and IV fluids. Patient's sodium has come up to normal. On 11/10/2023, patient was seen on morning rounds and deemed medically stable for discharge. Patient was discharged with instructions to schedule follow-up appointments with PCP 3 to 5 days. Prescription Keflex 500 mg p.o. every 8 hours x 5 days sent to the pharmacy .the patient and family members were given the opportunity to ask questions and reported no further questions. Furthermore, all questions were answered to the best of my ability. 1. Please call and schedule a follow-up appointment with your PCP in 3-5 days - Please follow-up with your PCP for medication refills/adjustments Followup: Polina Matt, LEAD PHARMACY TECHNICIAN [Primary Care Provider] - (F/U in 3-5 days)
[2023-11-10] MEDS: PROMETHAZINE INJ 25 MG/ML AMP IV PRN (20:18)
[2023-11-11] MEDS: NA CHLORIDE 0.9% 1,000 ML IV SCH ×3 (03:13→18:43)
[2023-11-11] MEDS: ONDANSETRON 4 MG/2 ML VIAL IV PRN (03:13)
[2023-11-11] MEDS: Oxycodone HCl/Acetaminophen 5/325 MG TAB PO PRN ×3 (03:13→16:37)
[2023-11-11] MEDS: INSULIN REGULAR (HUMAN) 100 UNIT/ML SQ SCH ×4 (07:58→21:00)
[2023-11-11] MEDS: SUCRALFATE 1 GM TABLET PO SCH ×4 (07:58→20:43)
[2023-11-11] MEDS: CEFTRIAXONE 1,000 MG in NA CHLORIDE 0.9% 50 ML IVPB SCH (08:00)
[2023-11-11] MEDS: ENOXAPARIN 80 MG/0.8 ML SQ SCH ×3 (08:00→21:00)
[2023-11-11] MEDS: PANTOPRAZOLE 40 MG INJ IVP SCH ×2 (08:00→20:43)
[2023-11-11] MEDS: PROMETHAZINE INJ 25 MG/ML AMP IV PRN ×3 (08:04→20:46)
[2023-11-11] MEDS ORDERED: LACTULOSE 20 GM/30 ML UCUP PO PRN (09:45)
[2023-11-11] MEDS ORDERED: LACTULOSE 20 GM/30 ML UCUP PO ONE (10:00)
[2023-11-11 11:24] LABS: Absolute Lymphocytes (CBC) 0.8 K/uL (0.7-4.9); Hematocrit 34.9 % (36.0-45.0); Lymphocytes % 6.1 % (15.3-44.8); MCV 72.2 fL (80-100); Platelets 394 thou/uL (152-406); RBC Red Blood Cell Count 4.84 M/uL (3.86-4.86)
[2023-11-11 11:38] LABS: Potassium 3.5 mEq/L (3.5-5.1)
[2023-11-11 12:04] LABS: Anisocytosis 1+; Blood Morphology Comment NOTED (NOT SEEN); Platelet Estimate ADEQ; Polychromasia 1+; White Blood Cell Scan OK (OK)
--- NOTE | 2023-11-11 12:29 | RAD REPORT ---
EXAM DESCRIPTION: RAD - Abdomen 1 View (KUB) - 11/11/2023 12:06 pm CLINICAL HISTORY: Abdomen pain FINDINGS: The bowel gas pattern is unremarkable. A moderate amount of stool is present throughout th e colon. Surgical clips right upper quadrant No significant abnormal calcification is displayed
--- NOTE | 2023-11-11 15:52 | P.PN ---
Subjective Date of Service: 11/11/23 Chief Complaint: Persistent nausea, vomiting, volume depletion. Subjective: Improving, C/O voiced (Constipation) Patient is alert and oriented x 3 Resting in the bed NAD Denies any pain or shortness of breath Vital stable <Quinten Askew - Last Filed: 11/11/23 15:53> Date of Service: 11/12/23 <Kuldip Sanchez Nino - Last Filed: 11/12/23 17:05> Review of Systems 10-point ROS is otherwise unremarkable <Quinten Askew - Last Filed: 11/11/23 15:53> Physical Examination - Vital Signs Temperature: 97.5 F Blood Pressure: 105/60 Pulse: 109 Respirations: 14 Pulse Ox (%): 95 - Physical Exam General: Alert, Oriented x3 HEENT: Atraumatic Neck: Supple, 2+ carotid pulse no bruit Respiratory: Clear to auscultation bilaterally, Normal air movement Cardiovascular: No edema, Regular rate/rhythm Capillary refill: <2 Seconds Gastrointestinal: Normal bowel sounds, Soft and benign Musculoskeletal: No clubbing, No contractures Neurological: Normal speech, Sensation intact - Studies Microbiology Data (last 24 hrs): 11/09/23 12:05 Body Fluid - Abdomen Gram Stain - Final <Quinten Askew - Last Filed: 11/11/23 15:53> Assessment And Plan - Plan - Plan Persistent nausea vomiting and concerns for gastritis: Patient has persistent nausea with vomiting episode. She did report taking Tums for reflux symptoms. Will start pantoprazole therapy and add sucralfate for additional symptomatic benefit. Monitor clinical symptomatology closely. Added lactulose as patient complains of constipation KUB ordered UTI: UA is very concerning. Will obtain urine culture and start Rocephin for suspected UTI pending urine culture finalization. Hyponatremia: Sodium is low at 130. Present episode is deemed secondary to vomiting issues and loss of electrolyte from vomitus. Will start sodium chloride infusion for management. Monitor daily labs. Diabetes type 2: Will continue patient on sliding scale insulin and carb restricted diet. [facility] blood glucose checks will be done. Hypertension: Patient has history of hypertension. Will monitor vital signs per unit protocol and continue patient on antihypertensive medication if blood pressure allows. Discharge Plan: Home Plan to discharge in: 24 Hours - Code Status/Comfort Care Code Status Assessed: Yes (Full code) Code Status: Full Code Physician Review: Patient Assessed, Agree with Above Assessment and Plan Critical Care: No Time Spent Managing PTS Care (In Minutes): 35 (Minutes) <Quinten Askew - Last Filed: 11/11/23 15:53> - Plan Pt seen and examined. I agree with note by the FIRESTOPPER INSTALLER. Continue rocephin for possible UTI. Continue lactulose for constipation <Kuldip Sanchez - Last Filed: 11/12/23 17:05>
[2023-11-11] MEDS: ENSURE CLEAR 200 ML CAN PO SCH (20:43)
[2023-11-12] MEDS: PROMETHAZINE INJ 25 MG/ML AMP IV PRN ×5 (00:09→18:03)
[2023-11-12] MEDS: Oxycodone HCl/Acetaminophen 5/325 MG TAB PO PRN ×2 (02:07→07:38)
[2023-11-12] MEDS: NA CHLORIDE 0.9% 1,000 ML IV SCH ×3 (05:00→20:36)
[2023-11-12] MEDS: INSULIN REGULAR (HUMAN) 100 UNIT/ML SQ SCH ×4 (07:30→20:25)
[2023-11-12] MEDS: SUCRALFATE 1 GM TABLET PO SCH ×4 (07:38→20:26)
[2023-11-12 08:07] LABS: Absolute Lymphocytes (CBC) 0.9 K/uL (0.7-4.9); Hematocrit 32.8 % (36.0-45.0); Lymphocytes % 7.2 % (15.3-44.8); MCV 73.2 fL (80-100); MPV 7.5 fL (7.6-11.3); Platelets 430 thou/uL (152-406); RBC Red Blood Cell Count 4.48 M/uL (3.86-4.86)
[2023-11-12 08:48] LABS: Potassium 4.5 mEq/L (3.5-5.1)
[2023-11-12] MEDS: ENOXAPARIN 80 MG/0.8 ML SQ SCH ×2 (09:00→20:26)
[2023-11-12] MEDS: ENSURE CLEAR 200 ML CAN PO SCH ×2 (09:00→20:25)
[2023-11-12] MEDS: PANTOPRAZOLE 40 MG INJ IVP SCH ×2 (11:33→20:25)
[2023-11-12] MEDS: CEFTRIAXONE 1,000 MG in NA CHLORIDE 0.9% 50 ML IVPB SCH (11:34)
--- NOTE | 2023-11-12 11:51 | P.PN ---
Subjective Date of Service: 11/12/23 Chief Complaint: Persistent nausea, vomiting, volume depletion. Subjective: No new changes, C/O voiced (Abdominal discomfort, N&V) Patient is alert and oriented x 3 Resting in the bed NAD Denies any pain or shortness of breath c/o Abdominal discomfort, N&V Vital stable <Quinten Askew - Last Filed: 11/12/23 11:45> Date of Service: 11/13/23 <GelyKuldip whitehead Nino - Last Filed: 11/13/23 09:47> Review of Systems 10-point ROS is otherwise unremarkable <Quinten Askew - Last Filed: 11/12/23 11:45> Physical Examination - Vital Signs Temperature: 97.5 F Blood Pressure: 100/51 Pulse: 96 Respirations: 36 Pulse Ox (%): 94 - Physical Exam General: Alert HEENT: Atraumatic, Normocephalic Neck: Supple, 2+ carotid pulse no bruit Respiratory: Clear to auscultation bilaterally, Normal air movement Cardiovascular: Normal pulses Capillary refill: <2 Seconds Gastrointestinal: Normal bowel sounds, Soft and benign, Other (Abdominal discomfort, N&V), Distended Musculoskeletal: No clubbing, No swelling Integumentary: No rashes, No significant lesion Neurological: Normal speech, Normal reflexes 2+ <Quinten Askew - Last Filed: 11/12/23 11:45> Assessment And Plan - Current Problems (Diagnosis) (1) Gastritis Current Visit: Yes Status: Acute Qualifiers: Gastritis type: other gastritis (2) UTI (urinary tract infection) Current Visit: Yes Status: Acute Qualifiers: Urinary tract infection type: acute cystitis Hematuria presence: without hematuria Qualified Code(s): N30.00 - Acute cystitis without hematuria (3) Hyponatremia Current Visit: Yes Status: Acute (4) DM type 2 (diabetes mellitus, type 2) Current Visit: Yes Status: Acute Qualifiers: Diabetes mellitus fpc insulin use: without fpc use Diabetes mellitus complication status: without complication Qualified Code(s): E11.9 - Type 2 diabetes mellitus without complications (5) HTN (hypertension) Current Visit: Yes Status: Acute Qualifiers: Hypertension type: primary hypertension Qualified Code(s): I10 - Essential (primary) hypertension - Plan - Plan Continues to have persistent nausea vomiting and concerns for gastritis: Patient has persistent nausea with vomiting episode. She did report taking Tums for reflux symptoms. Will continue pantoprazole therapy and add sucralfate for additional symptomatic benefit. Monitor clinical symptomatology closely. Added lactulose as patient complains of constipation KUB showing constipation Leukocytosis WBC 13.6will continue ceftriaxone UTI: UA is very concerning. Will obtain urine culture and start Rocephin for suspected UTI pending urine culture finalization. Hyponatremia: Sodium is improving low at 135. Present episode is deemed secondary to vomiting issues and loss of electrolyte from vomitus. Will start sodium chloride infusion for management. Monitor daily labs. Diabetes type 2: Will continue patient on sliding scale insulin and carb restricted diet. [facility] blood glucose checks will be done. Hypertension: Patient has history of hypertension. Will monitor vital signs per unit protocol and continue patient on antihypertensive medication if blood pressure allows. CODE STATUSfull code DVT prophylaxisSCDs Dietdiabetic Discharge Plan: Home Plan to discharge in: 24 Hours - Code Status/Comfort Care Code Status Assessed: Yes (full code) Code Status: Full Code Physician Review: Patient Assessed, Agree with Above Assessment and Plan Critical Care: No Time Spent Managing PTS Care (In Minutes): 35 (minutes) <Quinten Askew - Last Filed: 11/12/23 11:45> - Plan Pt seen and examined. I agree with the note by the FULL STACK SOFTWARE ENGINEER. PT is still having nausea and vomiting. KUB is negative for SBO. Will continue prn phenergan. if no improvement, will give reglan. <Kuldip Sanchez - Last Filed: 11/13/23 09:47>
[2023-11-13] MEDS: PROMETHAZINE INJ 25 MG/ML AMP IV PRN ×2 (01:14→20:58)
[2023-11-13] MEDS ORDERED: METOCLOPRAMIDE 10 MG/2mL INJ IV PRN (07:18)
[2023-11-13] MEDS: INSULIN REGULAR (HUMAN) 100 UNIT/ML SQ SCH ×4 (07:30→21:04)
[2023-11-13] MEDS: SUCRALFATE 1 GM TABLET PO SCH ×4 (08:49→20:58)
[2023-11-13] MEDS: PANTOPRAZOLE 40 MG INJ IVP SCH ×2 (08:49→21:04)
[2023-11-13] MEDS: CEFTRIAXONE 1,000 MG in NA CHLORIDE 0.9% 50 ML IVPB SCH (08:49)
[2023-11-13] MEDS: ENSURE CLEAR 200 ML CAN PO SCH ×2 (08:50→21:00)
[2023-11-13] MEDS: ENOXAPARIN 80 MG/0.8 ML SQ SCH ×2 (08:50→21:00)
[2023-11-13] MEDS: NA CHLORIDE 0.9% 1,000 ML IV SCH (11:00)
[2023-11-13] MEDS: HYDROCODONE/APAP 7.5/325 MG TAB PO PRN ×2 (11:40→18:04)
[2023-11-13] MEDS: ONDANSETRON 4 MG/2 ML VIAL IV PRN (12:50)
--- NOTE | 2023-11-13 13:51 | P.PN ---
Subjective Date of Service: 11/13/23 Chief Complaint: Persistent nausea, vomiting, volume depletion. Subjective: No new changes, Improving, Doing well Patient is alert and oriented x 3 Resting in the bed NAD Denies any pain or shortness of breath Improving Abdominal discomfort, N&V Vital stable <Quinten Askew - Last Filed: 11/13/23 13:49> Date of Service: 11/14/23 <Kuldip Sanchez Nino - Last Filed: 11/14/23 15:05> Review of Systems 10-point ROS is otherwise unremarkable <Quinten Askew - Last Filed: 11/13/23 13:49> Physical Examination - Vital Signs Temperature: 98.0 F Blood Pressure: 131/76 Pulse: 83 Respirations: 15 Pulse Ox (%): 94 - Physical Exam General: Alert, Oriented x3 HEENT: Atraumatic, Normocephalic Neck: Supple, 2+ carotid pulse no bruit Respiratory: Clear to auscultation bilaterally, Normal air movement Cardiovascular: No edema, Normal pulses Capillary refill: <2 Seconds Gastrointestinal: Normal bowel sounds, Soft and benign, Distended Musculoskeletal: No clubbing, No contractures Integumentary: No rashes, No breakdown, No significant lesion Neurological: Normal speech, Normal tone <Quinten Askew - Last Filed: 11/13/23 13:49> Assessment And Plan - Current Problems (Diagnosis) (1) Gastritis Current Visit: Yes Status: Acute Qualifiers: Gastritis type: other gastritis (2) UTI (urinary tract infection) Current Visit: Yes Status: Acute Qualifiers: Urinary tract infection type: acute cystitis Hematuria presence: without hematuria Qualified Code(s): N30.00 - Acute cystitis without hematuria (3) Hyponatremia Current Visit: Yes Status: Acute (4) DM type 2 (diabetes mellitus, type 2) Current Visit: Yes Status: Acute Qualifiers: Diabetes mellitus senior care insulin use: without long term care phlebotomist use Diabetes mellitus complication status: without complication Qualified Code(s): E11.9 - Type 2 diabetes mellitus without complications (5) HTN (hypertension) Current Visit: Yes Status: Acute Qualifiers: Hypertension type: primary hypertension Qualified Code(s): I10 - Essential (primary) hypertension - Plan - Plan Continues to have persistent nausea vomiting and concerns for gastritis: Patient has persistent nausea with vomiting episode. She did report taking Tums for reflux symptoms. Will continue pantoprazole therapy and add sucralfate for additional symptomatic benefit. Monitor clinical symptomatology closely. Added lactulose as patient complains of constipation KUB showing constipation Leukocytosis WBC 13.6will continue ceftriaxone UTI: UA is very concerning. Will obtain urine culture and start Rocephin for suspected UTI pending urine culture finalization. Hyponatremia: Sodium is improving low at 135. Present episode is deemed secondary to vomiting issues and loss of electrolyte from vomitus. Will start sodium chloride infusion for management. Monitor daily labs. Diabetes type 2: Will continue patient on sliding scale insulin and carb restricted diet. [facility] blood glucose checks will be done. Hypertension: Patient has history of hypertension. Will monitor vital signs per unit protocol and continue patient on antihypertensive medication if blood pressure allows. CODE STATUSfull code DVT prophylaxisSCDs Dietdiabetic Discharge Plan: Home Plan to discharge in: 48 Hours - Code Status/Comfort Care Code Status Assessed: Yes (full code) Code Status: Full Code Physician Review: Patient Assessed, Agree with Above Assessment and Plan Critical Care: No Time Spent Managing PTS Care (In Minutes): 35 (minutes) <Quinten Askew - Last Filed: 11/13/23 13:49> - Plan Pt seen and examined. I agree with the note by the AWNING ERECTOR. Continue iv reglan for nausea. Pt has bilateral PE. Will continue therapeutic lovenox. Echo is negative for for RV strain. <Kuldip Sanchez - Last Filed: 11/14/23 15:05>
[2023-11-14] MEDS: HYDROCODONE/APAP 7.5/325 MG TAB PO PRN ×3 (02:08→21:16)
[2023-11-14] MEDS: NA CHLORIDE 0.9% 1,000 ML IV SCH ×2 (07:00→08:33)
[2023-11-14] MEDS: INSULIN REGULAR (HUMAN) 100 UNIT/ML SQ SCH ×3 (07:30→17:42)
[2023-11-14 08:10] LABS: TOTAL PROTEIN,PERITONEAL FLUID 5.2 g/dL
[2023-11-14] MEDS: PANTOPRAZOLE 40 MG INJ IVP SCH (08:34)
[2023-11-14] MEDS: ENSURE CLEAR 200 ML CAN PO SCH ×2 (08:34→21:00)
[2023-11-14] MEDS: ENOXAPARIN 80 MG/0.8 ML SQ SCH ×2 (08:34→21:17)
[2023-11-14] MEDS: SUCRALFATE 1 GM TABLET PO SCH ×4 (08:34→21:13)
[2023-11-14] MEDS: CEFTRIAXONE 1,000 MG in NA CHLORIDE 0.9% 50 ML IVPB SCH (08:34)
[2023-11-14] MEDS: ONDANSETRON 4 MG/2 ML VIAL IV PRN (08:39)
[2023-11-14 10:58] LABS: Absolute Lymphocytes (CBC) 1.4 K/uL (0.7-4.9); Hematocrit 32.6 % (36.0-45.0); Lymphocytes % 11.6 % (15.3-44.8); MCV 72.5 fL (80-100); MPV 7.5 fL (7.6-11.3); Platelets 344 thou/uL (152-406)
[2023-11-14 11:10] LABS: AST/SGOT 11 U/L (15-37); Albumin 1.9 g/dL (3.4-5.0); Alkaline Phosphatase 41 U/L (45-117); BUN Blood Urea Nitrogen 16 mg/dL (7-18); Bicarbonate 20 mEq/L (21-32); Bilirubin Total 0.3 mg/dL (0.2-1.0); Glomerular Filtration Rate 98 ml/min (=/>90); Glucose Level 181 mg/dL (74-106); Magnesium 1.7 mg/dL (1.6-2.4); Protein, Total 6.5 g/dL (6.4-8.2); Sodium Level 134 mEq/L (136-145)
[2023-11-14 11:11] LABS: ALT/SGPT < 10 U/L (13-56)
--- NOTE | 2023-11-14 11:37 | P.DS ---
Admission Date: 11/10/23 Discharge Date: 11/20/23 Disposition: Discharge Condition: Reason for Admission: Persistent nausea, vomiting, volume depletion. Brief History of Present Illness: 68-year-old female patient with medical history significant for recurrent bowel obstructions, stomach cancer, diabetes type 2, hypertension, hyperlipidemia, history of reflux esophagitis who came to the ED with complaint of persistent nausea vomiting and found to be volume depleted. Symptoms likely secondary to un treated stomach cancer "peritoneal carcinomatosis" noted on CT from September 28, 2023. she was also noted to have had hyponatremia, low sodium of 130 and a UA was very concerning for possible UTI. She was given isotonic fluid and anti nausea medication however she continued to have persistent nausea and was vomiting so she was admitted for inpatient care. Prior admission 10/12/2023 for abdominal pain, ileus, hyponatremia, peritoneal carcinomatosis, with follow-up for oncology as outpatient scheduled after last admission had not occurred prior to admission Hospital Course: 68-year-old female patient presented with urinary tract infection, esophagitis, reflux, Suspected stomach cancer (has not been evaluated by oncology), pleural effusions, ascites. Patient was noted to have an acute pulmonary embolism, she was treated with w Lovenox 1 mg/kg twice daily. Echo obtained showed no evidence of right heart strain. Per the nurse stated Ms. Arce had been refusing Lovenox for the last couple days. I reeducated Ms. Chan on Lovenox, agree agreed to take Lovenox inject. During the night jus Chan had cardiopulmonary arrest likely secondary to extension of pulmonary embolism. Patient was scheduled to be discharged 11/15, sodium was not discharged because was she had noted to be hypoxic, home 02 was ordered in the process of being ordered by case managment prior to the. Discharge was held due the day prior to hypoxia prior. PROBLEM: Cardiopulmonary arrest acute Pulmonary embolus on Lovenox 1 mg/kg BID acute Acute hypoxia respiratory failure secondary to pulmonary embolus requiring O2 acute Persistent nausea acute Recurrent ileus, bowel obstruction Acute cystitis acute Stomach cancer cancer, peritoneal carcinomatosis. (Had not followed up with oncology outpatient) acute ascites status post paracentesis acute Pleural effusion acute Vital Signs/Physical Exam: Temp Pulse Resp BP Pulse Ox 99.3 F 79 17 114/73 91 11/14/23 08:00 11/14/23 08:00 11/14/23 08:00 11/14/23 08:00 11/14/23 08:00 Laboratory Data at Discharge: WBC 12.00 thou/uL (4.3-10.9) H 11/14/23 10:30 Hgb 10.3 g/dL (12.0-15.0) L 11/14/23 10:30 Hct 32.6 % (36.0-45.0) L 11/14/23 10:30 Plt Count 344 thou/uL (152-406) 11/14/23 10:30 PT 15.8 SECONDS (9.5-12.5) H 11/09/23 13:50 INR 1.45 11/09/23 13:50 Sodium 134 mEq/L (136-145) L 11/14/23 10:30 Potassium 3.0 mEq/L (3.5-5.1) L 11/14/23 10:30 BUN 16 mg/dL (7-18) 11/14/23 10:30 Creatinine 0.59 mg/dL (0.55-1.02) 11/14/23 10:30 Glucose 181 mg/dL (74-106) H 11/14/23 10:30 Magnesium 1.7 mg/dL (1.6-2.4) 11/14/23 10:30 Total Bilirubin 0.3 mg/dL (0.2-1.0) 11/14/23 10:30 AST 11 U/L (15-37) L 11/14/23 10:30 ALT < 10 U/L (13-56) L 11/14/23 10:30 Alkaline Phosphatase 41 U/L (45-117) L 11/14/23 10:30 Physician Discharge Instructions: PROBLEM: Acute cardiopulmonary arrest prior to discharge Acute hypoxic respiratory failure secondary to pulmonary embolism Hyponatremia/Nausea/Vomiting Stomach cancer untreated by oncology Recurrent bowel obstruction New diagnosis of pulmonary embolus Time spent managing pt's care (in minutes): 55
[2023-11-14] MEDS ORDERED: METRONIDAZOLE 500mg IVPB 500 MG/100 ML BAG IV SCH (12:00)
[2023-11-14] MEDS ORDERED: CIPROFLOXACIN 400 MG/200 ML IVPB IV SCH (13:00)
--- NOTE | 2023-11-14 14:19 | RAD REPORT ---
EXAM DESCRIPTION: Rita Single View11/14/2023 1:59 pm CLINICAL HISTORY: decreased O2 COMPARISON: 09/29/2023 and 03/31/2022 radiographs TECHNIQUE: Portable AP view of the chest. FINDINGS: Crescentic left basilar airspace opacity, may reflect atelectasis or early airspace diseas e. Elevation of the left hemidiaphragm. No pneumothorax or effusion. The cardiomediastinal contours are unremarkable. IMPRESSION: Left breast crescentic airspace opacity, may reflect atelectasis or early airspace disea se.
--- NOTE | 2023-11-14 14:20 | P.PN ---
Subjective Date of Service: 11/14/23 Chief Complaint: Persistent nausea, vomiting, volume depletion. She reports tolerating Ensure, no reported abdominal pain reports mild nausea that has been chronic she reports shortness of breath with exertion - Physical Exam General: Alert HEENT: Atraumatic, Normocephalic Neck: Supple, 2+ carotid pulse no bruit Respiratory: Clear to auscultation bilaterally, Normal air movement Cardiovascular: Normal pulses Capillary refill: <2 Seconds Gastrointestinal: Normal bowel sounds, Soft and benign, Musculoskeletal: No clubbing, No swelling Integumentary: No rashes, No significant lesion Neurological: Normal speech, Normal reflexes 2+ <Kellie Avila - Last Filed: 11/14/23 15:31> Date of Service: 11/14/23 <LauraJuan Calistair Oneill - Last Filed: 11/14/23 19:42> Review of Systems per HPI <Armaan Avilay - Last Filed: 11/14/23 15:31> Physical Examination - Vital Signs Temperature: 97.1 F Blood Pressure: 122/62 Pulse: 82 Respirations: 17 Pulse Ox (%): 91 <AustinKellie - Last Filed: 11/14/23 15:31> Assessment And Plan - Plan Assessment plan Acute cystitis Abdominal pain nausea vomiting Suspected adenocarcinoma Hyponatremia Sodium 130, gentle IV fluids, IV antibiotics, Cipro and Flagyl, as needed antiemetics 11/11 KUB FINDINGS: The bowel gas pattern is unremarkable. A moderate amount of stool is present throughout the colon. Surgical clips right upper quadrant No significant abnormal calcification is displayed Follow-up with Dr. Ni after discharge acute hypoxic respiratory failure secondary Bilatweral PE Pleural effusion B) Pulmonary embolism lovenox 1mg/kg, pulmonary consult 11/09CT dissection IMPRESSION: Bilateral pulmonary embolism is present, greater on the right as detailed. No significant aortic flow abnormality. 11/10 Echocardiogram 1. NORMAL LEFT VENTRICULAR EJECTION FRACTION 60-65% WITH NORMAL WALL MOTION 2. RIGHT VENTRICULAR FUNCTION APPEARS NORMAL (BUT WINDOWS ARE LIMITED FOR ACCURATE EVALUATION) 3. MILD TRICUSPID REGURGITATION 4. PULMONARY HYPERTENSION WITH RIGHT VENTRICULAR SYSTOLIC PRESSURE OF 50-55 mmHg 5. POOR WINDOWS Will need home O2 secondary to bilateral pulmonary, destaturations at rest and with ambulation Will need DC on chronic anticoagulation right thyroid lobe mass measuring up to 5.5 cm. 1/17CT dissection IMPRESSION: Bilateral pulmonary embolism is present, greater on the right as detailed. No significant aortic flow abnormality. Large right thyroid lobe mass measuring up to 5.5 cm. Significant reduction in ascites volume. Airspace opacity in the left lung base with small pleural effusion may be infiltrate/pneumonia or less likely pulmonary infarct. Ascites 11/09 Paracentesis IMPRESSION: Successful ultrasound-guided paracentesis. A total of 4.5 liters of ascitic fluid were drained. Diabetes type 2 Accu-Cheks, sliding scale insulin Hypertension unknown control resume appropriate home meds Full code DVT Lovenox Diet clear liquids advance as tolerated Discharge Plan: Home - Code Status/Comfort Care Code Status: Full Code Critical Care: No Time Spent Managing PTS Care (In Minutes): 35 <Kellie Avila - Last Filed: 11/14/23 15:31> - Plan Pt seen and examined. I agree with the note by the GRINDER SET UP OPERATOR THREAD. Continue regaln or nausea. CT chest showed bilateral PE. Will continue therapeutic lovenox. Echo is negative for RV strain. Consulted Pulm for acute resp failure. <Kuldip Sanchez - Last Filed: 11/14/23 19:42>
[2023-11-14 20:10] VITALS: BP 121/68; TEMP 96.9
[2023-11-14 20:27] VITALS: O2SAT 95
[2023-11-14] MEDS ORDERED: DOPAMINE/D5W 400 MG/250 ML BAG IV ONE (23:02)
[2023-11-14] MEDS ORDERED: D50W 25 GM/50 ML SYRINGE IV ONE (23:02)
[2023-11-14] MEDS ORDERED: 0.9 % SODIUM CHLORIDE 1,000 ML IV ONE (23:02)
[2023-11-14] MEDS ORDERED: ATROPINE SULF 1 MG/10 ML SYR IV ONE (23:02)
[2023-11-14] MEDS ORDERED: EPINEPHrine 1 MG/10 ML SYR IV ONE (23:02)
[2023-11-14] MEDS ORDERED: Calcium Chloride 10% INJ SYR IV ONE (23:02)
== END 2023-11-14 23:03 | disposition expired | DRG 175 ==
LOC: ER 14:53 → UNDOADMOB 20:31 → OBSVTOIN 20:31 → INTOOBSV 20:31 → 2ND 20:31 → OBSVTOIN 11-10 10:39
PROVIDERS: ADMIT Internal Medicine Nephrology; ATTEND Hospitalist
PROC: 0W9G3ZZ Drainage of Peritoneal Cavity, Percutaneous Approach (ICD-10-PCS; 2023-11-09)
PROC: 02HV33Z Insertion of Infusion Device into Superior Vena Cava, Percutaneous Approach (ICD-10-PCS; 2023-11-10)
PROC: 3E043XZ Introduction of Vasopressor into Central Vein, Percutaneous Approach (ICD-10-PCS; 2023-11-10)
PROC: 0BH17EZ Insertion of Endotracheal Airway into Trachea, Via Natural or Artificial Opening (ICD-10-PCS; 2023-11-10)
PROC: 5A12012 Performance of Cardiac Output, Single, Manual (ICD-10-PCS; principal; 2023-11-14)
DX: I26.99 Other pulmonary embolism without acute cor pulmonale (principal); J18.9 Pneumonia, unspecified organism; J96.01 Acute respiratory failure with hypoxia; E87.1 Hypo-osmolality and hyponatremia; N30.00 Acute cystitis without hematuria; R18.8 Other ascites; K56.699 Other intestinal obstruction unspecified as to partial versus complete obstruction; C78.6 Secondary malignant neoplasm of retroperitoneum and peritoneum; J91.8 Pleural effusion in other conditions classified elsewhere; R57.9 Shock, unspecified; K29.00 Acute gastritis without bleeding; K59.00 Constipation, unspecified; E86.0 Dehydration; K21.00 Gastro-esophageal reflux disease with esophagitis, without bleeding; I10 Essential (primary) hypertension; E11.9 Type 2 diabetes mellitus without complications; I46.9 Cardiac arrest, cause unspecified; E78.5 Hyperlipidemia, unspecified; Z79.4 Long term (current) use of insulin; Z79.02 Long term (current) use of antithrombotics/antiplatelets; Z79.84 Long term (current) use of oral hypoglycemic drugs; Z79.899 Other long term (current) drug therapy; Z90.710 Acquired absence of both cervix and uterus
CPT/HCPCS: 36415; 49083; 71045; 71275; 74018; 74175; 74177; 80048; 80053; 81001; 82150; 82945; 82947; 83735; 84145; 84157; 85025; 85610; 87086; 87088; 87205; 93306; 96361; 96374; 99285; A4216; C9113; J0171; J0461; J0696; J0744; J1265; J1815; J2270; J2405; J2550; J2765; J3010; J7030; Q9967